=== PATIENT | male | born 1955 ===

== ENCOUNTER 2021-02-27 15:49 | Emergency (ER) | payer SELFPAY | END 2021-02-27 19:00 | disposition left against medical advice (07) | LOC: ED 15:49 | DX: R10.9 Unspecified abdominal pain (principal); R06.02 Shortness of breath; Z53.21 Procedure and treatment not carried out due to patient leaving prior to being seen by health care provider ==

== ENCOUNTER 2021-03-12 14:45 | Inpatient (IN) | payer MEDICARE ==
[2021-03-12] MEDS ORDERED: DEXTROSE 50% IN WATER (25GM) 50 ML SYRINGE IV ONE (18:45)
--- NOTE | 2021-03-12 19:04 | Emergency Department Report ---
HPI - General Chief Complaint: Abdominal Pain Time Seen by Provider: 03/12/21 18:17 - HPI HPI: This is a 65-year-old -[place]ian male presents to the emergency department with a complaint of shortness of breath, abdominal distention, and the patient is positive for COVID-19. Patient was admitted here on 02/28 until 03/04. When he visited on 02/28 the patient did not have any known past medical history but does have a history of daily alcohol use and dependence, as well as tobacco use. He was found to have liver cirrhosis causing ascites, as well as anemia and he was having some intermittent rectal bleeding. During that last admission the pa aimee had a paracentesis in which they removed 13 L of fluid, and he had a colonoscopy done with GI. Patient's daughter says that he tested positive for COVID-19 last week. Patient is currently AAO x3. The patient was seen in triage and was found to have a pulse ox of about 70% on room air. ED Past Medical Hx - Past Medical History Hx Hypertension: No Hx Heart Attack/AMI: No Hx Liver Disease: Yes (HCV) Hx Renal Disease: No Additional medical history: None reported - Social History Smoking Status: Current Every Day Smoker - Medications Home Medications: Home Medications Medication Instructions Recorded Confirmed Last Taken Type Ferrous Sulfate [Feosol 325 MG tab] 325 mg PO BID #30 tablet 03/04/21 Unknown Rx Folic Acid [Folvite] 1 mg PO QDAY #30 tablet 03/04/21 Unknown Rx Spironolactone [Aldactone] 50 mg PO QDAY #30 tablet 03/04/21 Unknown Rx Thiamine [Vitamin B-1] 100 mg PO QDAY #30 tablet 03/04/21 Unknown Rx ED Review of Systems ROS: Stated complaint: abdominal distention Other details as noted in HPI Comment: All other systems reviewed and negative Constitutional: denies: chills, fever Eyes: denies: eye pain, vision change ENT: denies: ear pain, throat pain Respiratory: shortness of breath. denies: cough Cardiovascular: denies: chest pain, palpitations Gastrointestinal: abdominal pain. denies: vomiting Genitourinary: denies: dysuria, discharge Musculoskeletal: denies: back pain, arthralgia Skin: denies: rash, lesions Neurological: denies: headache, weakness Physical Exam - Physical Exam Vital Signs: Vital Signs 03/12/21 03/12/21 18:20 18:39 Pulse Rate 127 H 104 H Respiratory 16 37 H Rate Blood Pressure 150/97 Blood Pressure 127/81 [Left] O2 Sat by Pulse 75 L 90 Oximetry Physical Exam: GENERAL: The patient is ill-appearing. Frail appearing. HENT: Normocephalic. Atraumatic. Patient has moist mucous membranes. EYES: Extraocular motions are intact. Pupils equal reactive to light bilaterally. NECK: Supple. Trachea is midline. CHEST/LUNGS: Coarse breath sounds much greater on the right. Tachypnea and conversational dyspnea. HEART/CARDIOVASCULAR: Regular. There is moderate tachycardia. There is no murmur. ABDOMEN: Abdomen is soft, nontender. There is moderate to severe abdominal distention with ascites. SKIN: Skin is warm and dry. NEURO: The patient is awake, alert, and cooperative. Normal speech. MUSCULOSKELETAL: There is no tenderness or deformity. ED Course Vital Signs 03/12/21 03/12/21 18:20 18:39 Pulse Rate 127 H 104 H Respiratory 16 37 H Rate Blood Pressure 150/97 Blood Pressure 127/81 [Left] O2 Sat by Pulse 75 L 90 Oximetry - Consultations Consultation #1: 03/12/21 21:09 I spoke to the admissions nurse on-call, Dr. Wood, who will consult on the patient. - EJ/Peripheral Line Arm R Time Out Performed: Yes Indications: nurses unable to establis Skin Cleansed in Sterile Fashion: Yes Size: 22 Dressing Placed: Tegaderm, tape Patient Tolerated Procedure: well - Intubation Time Out Performed: Yes Sedative: Etomidate Mg Given: 20 Paralytic: Rocuronium Mg Given: 70 Laryngoscope: other (Homer scope) Size: 4 ET Tube Size: 7.5 Tube Secured Depth (cm): 24 Tube Secured Location: lips Tube Placement Confirmation: visualized tube passing t, equal breath sounds bilat, confirmation by capnometr Patient Tolerated Procedure: well Intubation Complications: none Additional Comments: Initially the patient was given 50 mg of ketamine, and then 70 mg of rocuronium. This did not appear to affect the patient so he was given another 50 mg of ketamine. We then saw that the IV appeared to have infiltrated. The patient was evaluated after receiving these medications and he did not appear to have any sedation and was not paralyzed. We then placed a left EJ IV and did the RSI procedure with etomidate and rocuronium as stated above. ED Medical Decision Making - Lab Data Result diagrams: 03/12/21 18:54 03/12/21 18:54 Lab Results 03/12/21 03/12/21 03/12/21 Range/Units 18:17 18:54 18:54 WBC 15.4 H (4.5-11.0) K/mm3 RBC 4.29 (3.65-5.03) M/mm3 Hgb 9.0 L (11.8-15.2) gm/dl Hct 33.2 L (35.5-45.6) % MCV 77 L (84-94) fl MCH 21 L (28-32) pg MCHC 27 L (32-34) % RDW 28.1 H (13.2-15.2) % Plt Count 270 (140-440) K/mm3 Seg Neutrophils % [employer] PT (12.2-14.9) Sec. INR (0.87-1.13) APTT (24.2-36.6) Sec. Sodium 136 L (137-145) mmol/L Potassium 5.4 H (3.6-5.0) mmol/L Chloride 98.1 (98-107) mmol/L Carbon Dioxide 16 L (22-30) mmol/L Anion Gap 27 mmol/L BUN 32 H (9-20) mg/dL Creatinine 1.3 (0.8-1.3) mg/dL Estimated GFR 55 ml/min BUN/Creatinine Ratio 25 % Glucose 104 H (75-100) mg/dL POC Glucose 58 L (70-105) mg/dL Calcium 8.7 (8.4-10.2) mg/dL Ferritin (30.0-300.0) ng/mL Total Bilirubin 1.40 H (0.1-1.2) mg/dL AST 71 H (5-40) units/L ALT 21 (7-56) units/L Alkaline Phosphatase 164 H (35-129) units/L Lactate Dehydrogenase (91-180) units/L Troponin T (0.00-0.029) ng/mL C-Reactive Protein (0.00-1.30) mg/dL NT-Pro-B Natriuret Pep (0-900) pg/mL Total Protein 7.1 (6.3-8.2) g/dL Albumin 2.2 L (3.9-5) g/dL Albumin/Globulin Ratio 0.4 % Blood Type Antibody Screen 03/12/21 03/12/21 03/12/21 Range/Units 18:54 18:54 18:54 WBC (4.5-11.0) K/mm3 RBC (3.65-5.03) M/mm3 Hgb (11.8-15.2) gm/dl Hct (35.5-45.6) % MCV (84-94) fl MCH (28-32) pg MCHC (32-34) % RDW (13.2-15.2) % Plt Count (140-440) K/mm3 Seg Neutrophils % PT 17.6 H (12.2-14.9) Sec. INR 1.31 H (0.87-1.13) APTT 38.7 H (24.2-36.6) Sec. Sodium (137-145) mmol/L Potassium (3.6-5.0) mmol/L Chloride (98-107) mmol/L Carbon Dioxide (22-30) mmol/L Anion Gap mmol/L BUN (9-20) mg/dL Creatinine (0.8-1.3) mg/dL Estimated GFR ml/min BUN/Creatinine Ratio % Glucose (75-100) mg/dL POC Glucose (70-105) mg/dL Calcium (8.4-10.2) mg/dL Ferritin (30.0-300.0) ng/mL Total Bilirubin (0.1-1.2) mg/dL AST (5-40) units/L ALT (7-56) units/L Alkaline Phosphatase (35-129) units/L Lactate Dehydrogenase (91-180) units/L Troponin T < 0.010 (0.00-0.029) ng/mL C-Reactive Protein (0.00-1.30) mg/dL NT-Pro-B Natriuret Pep 1838 H (0-900) pg/mL Total Protein (6.3-8.2) g/dL Albumin (3.9-5) g/dL Albumin/Globulin Ratio % Blood Type Antibody Screen 03/12/21 03/12/21 03/12/21 Range/Units 18:54 18:54 19:04 WBC (4.5-11.0) K/mm3 RBC (3.65-5.03) M/mm3 Hgb (11.8-15.2) gm/dl Hct (35.5-45.6) % MCV (84-94) fl MCH (28-32) pg MCHC (32-34) % RDW (13.2-15.2) % Plt Count (140-440) K/mm3 Seg Neutrophils % PT (12.2-14.9) Sec. INR (0.87-1.13) APTT (24.2-36.6) Sec. Sodium (137-145) mmol/L Potassium (3.6-5.0) mmol/L Chloride (98-107) mmol/L Carbon Dioxide (22-30) mmol/L Anion Gap mmol/L BUN (9-20) mg/dL Creatinine (0.8-1.3) mg/dL Estimated GFR ml/min BUN/Creatinine Ratio % Glucose (75-100) mg/dL POC Glucose (70-105) mg/dL Calcium (8.4-10.2) mg/dL Ferritin 414.7 H (30.0-300.0) ng/mL Total Bilirubin (0.1-1.2) mg/dL AST (5-40) units/L ALT (7-56) units/L Alkaline Phosphatase (35-129) units/L Lactate Dehydrogenase 287 H (91-180) units/L Troponin T (0.00-0.029) ng/mL C-Reactive Protein 10.80 H (0.00-1.30) mg/dL NT-Pro-B Natriuret Pep (0-900) pg/mL Total Protein (6.3-8.2) g/dL Albumin (3.9-5) g/dL Albumin/Globulin Ratio % Blood Type B POSITIVE Antibody Screen Negative 03/12/21 03/12/21 03/12/21 Range/Units 19:21 19:50 20:14 WBC (4.5-11.0) K/mm3 RBC (3.65-5.03) M/mm3 Hgb (11.8-15.2) gm/dl Hct (35.5-45.6) % MCV (84-94) fl MCH (28-32) pg MCHC (32-34) % RDW (13.2-15.2) % Plt Count (140-440) K/mm3 Seg Neutrophils % PT (12.2-14.9) Sec. INR (0.87-1.13) APTT (24.2-36.6) Sec. Sodium (137-145) mmol/L Potassium (3.6-5.0) mmol/L Chloride (98-107) mmol/L Carbon Dioxide (22-30) mmol/L Anion Gap mmol/L BUN (9-20) mg/dL Creatinine (0.8-1.3) mg/dL Estimated GFR ml/min BUN/Creatinine Ratio % Glucose (75-100) mg/dL POC Glucose 30 L 24 L 371 H (70-105) mg/dL Calcium (8.4-10.2) mg/dL Ferritin (30.0-300.0) ng/mL Total Bilirubin (0.1-1.2) mg/dL AST (5-40) units/L ALT (7-56) units/L Alkaline Phosphatase (35-129) units/L Lactate Dehydrogenase (91-180) units/L Troponin T (0.00-0.029) ng/mL C-Reactive Protein (0.00-1.30) mg/dL NT-Pro-B Natriuret Pep (0-900) pg/mL Total Protein (6.3-8.2) g/dL Albumin (3.9-5) g/dL Albumin/Globulin Ratio % Blood Type Antibody Screen - Radiology Data Radiology results: report reviewed ABDOMEN 4 VIEW(S) INDICATION / CLINICAL INFORMATION: SOB. COMPARISON: None available. FINDINGS: TUBES / LINES: None. BOWEL GAS PATTERN: Moderate gaseous distention of stomach with central displacement of bowel loops suggestive for ascites. FREE AIR / EXTRALUMINAL GAS: None seen. ADDITIONAL FINDINGS: Loculated right pleural effusion and right sided intimal disease IMPRESSION: 1. Probable large volume ascites. 2. Moderate right pleural effusion. - Medical Decision Making This patient presents to the emergency department with shortness of breath and abdominal distention with suspected reaccumulation of ascites. I also found out that the patient tested positive for COVID-19 about 5 days ago. In triage the patient is seen with hypoxia, tachypnea, tachycardia and appears in respiratory distress. We were able to get the patient back to room #7 we placed him on BiPAP. He was found to have hyperglycemia with a blood sugar of 50 and was given an amp of D50. When rechecked his blood sugar it was down to 25 so 2 more amps of D50 were ordered and then given. The patient did not tolerate the BiPAP. He kept pulling off the BiPAP mask and having oxygen desaturation. For this reason the patient was intubated as per the procedure section. Chest x-ray shows bilateral pneumonia and right-sided large pleural effusion. Abdominal x- ray shows what appears to be a large volume of ascites. The patient's labs have been remarkable for a leukocytosis of 15,000, anemia with a hemoglobin of 9, slightly elevated coags without anticoagulation, mild renal insufficiency, elevated proBNP and elevated inflammatory markers consistent with COVID-19 infection. The patient has been given IV antibiotics, IV Decadron. He will be admitted to the hospital for further evaluation and treatment and has been accepted for admission by the hospitalist, Dr. Richardson. Patient's daughter has been updated regarding his ED course including intubation. Critical Care Time: Yes Critical care time in (mins) excluding proc time.: 35 Critical care attestation.: If time is entered above; I have spent that time in minutes in the direct care of this critically ill patient, excluding procedure time. Critical care time has been spent on this patient during his initial evaluation, multiple reevaluations, ordering and interpretation of labs and imaging, supplemental oxygen/BiPAP/mechanical ventilation for his hypoxia, IV steroids, IV antibiotics, multiple amps of D50 for his hypoglycemia, discussions with the patient's daughter. Critical Care Time: 35 minutes ED Disposition Clinical Impression: Hypoxia, Hypoglycemia, Microcytic anemia, Hypokalemia, Suspected COVID-19 virus infection, Ascites due to alcoholic cirrhosis Acute respiratory failure Qualifiers: Respiratory failure complication: hypoxia Qualified Code(s): J96.01 - Acute respiratory failure with hypoxia Disposition: ADMITTED INPATIENT Is pt being admited?: Yes Condition: Critical Time of Disposition: 21:01
[2021-03-12] MEDS ORDERED: SODIUM CHLORIDE 0.9% 1000 ML 1,000 ML IV ONE (19:11)
[2021-03-12] MEDS ORDERED: ROCURONIUM 50 MG/5 ML INJ IV ONE ×2 (19:40→19:56)
[2021-03-12] MEDS ORDERED: KETAMINE 500 MG/5 ML VIAL MDV ONE (19:40)
--- NOTE | 2021-03-12 19:48 | XRay Report ---
ABDOMEN 4 VIEW(S) INDICATION / CLINICAL INFORMATION: SOB. COMPARISON: None available. FINDINGS: TUBES / LINES: None. BOWEL GAS PATTERN: Moderate gaseous distention of stomach with central displacement of bowel loops de elon ggestive for ascites. FREE AIR / EXTRALUMINAL GAS: None seen. ADDITIONAL FINDINGS: Loculated right pleural effusion and right sided intimal disease IMPRESSION: 1. Probable large volume ascites. 2. Moderate right pleural effusion. Signer Name: Mitch Castro MD Signed: 03/12/2021 7:44 PM Workstation Name: [id number]
[2021-03-12] MEDS ORDERED: ETOMIDATE 20 MG/10 ML INJ IV ONE (19:54)
[2021-03-12] MEDS ORDERED: MINERAL OIL/PETROLATUM, WHITE OPHTH OINT 3.5 GM OU PRN (20:02)
[2021-03-12] MEDS ORDERED: LIP THERAPY VASELINE TP PRN (20:02)
[2021-03-12] MEDS ORDERED: MIDAZOLAM 2 MG/2 ML INJ IV PRN (20:02)
[2021-03-12 20:16] LABS: Mean Corpuscular HGB Conc 27 % (32-34); Mean Corpuscular Volume 77 fl (84-94); Platelet Count 270 K/mm3 (140-440); Red Blood Count 4.29 M/mm3 (3.65-5.03)
[2021-03-12 20:24] LABS: Hematocrit 33.2 % (35.5-45.6); Red Cell Distribution Width 28.1 % (13.2-15.2)
[2021-03-12 20:29] LABS: INR 1.31 (0.87-1.13)
[2021-03-12 20:30] LABS: Partial Thromboplastin Time 38.7 Sec. (24.2-36.6)
[2021-03-12 20:39] LABS: Albumin 2.2 g/dL (3.9-5); Calcium 8.7 mg/dL (8.4-10.2)
[2021-03-12 20:40] LABS: C-Reactive Protein 10.8 mg/dL (0.00-1.30)
--- NOTE | 2021-03-12 20:40 | XRay Report ---
CHEST 1 VIEW 03/12/2021 7:22 PM INDICATION / CLINICAL INFORMATION: ETT placement. COMPARISON: None available. FINDINGS: SUPPORT DEVICES: ET tube tip 4 cm above brittney area HEART / MEDIASTINUM: No significant abnormality. LUNGS / PLEURA: Loculated right pleural effusion with right-sided brachial disease. Mild streaky left -sided parenchymal disease. No pneumothorax. ADDITIONAL FINDINGS: No significant additional findings. IMPRESSION: 1. Bilateral pneumonia with loculated moderate right pleural effusion Signer Name: Mitch Castro MD Signed: 03/12/2021 8:36 PM Workstation Name: [id number]
[2021-03-12] MEDS ORDERED: AZITHROMYCIN/NS 500 MG/250 ML 500 MG/250 ML BAG IV ONE (20:53)
[2021-03-12] MEDS ORDERED: cefTRIAXone/NS 1 GM/50 ML 1 GM/50 ML BAG IV ONE (20:53)
[2021-03-12] MEDS ORDERED: dexAMETHasone 4 MG/ML VIAL IV ONE (20:54)
[2021-03-12] MEDS ORDERED: MIDAZOLAM 100 MG in SODIUM CHLORIDE 0.9% 80 ML IV SCH (21:00)
[2021-03-12] MEDS ORDERED: ONDANSETRON 4 MG/2 ML INJ IV PRN (21:29)
[2021-03-12] MEDS ORDERED: MORPHINE 2 MG/1 ML INJ IV PRN (21:29)
[2021-03-12] MEDS ORDERED: HYDROmorphone 1 MG/1 ML INJ IV PRN (21:29)
[2021-03-12] MEDS ORDERED: ALBUTEROL 2.5 MG/3 ML NEBU IH PRN (21:29)
[2021-03-12] MEDS ORDERED: ACETAMINOPHEN 325 MG TAB PO PRN (21:29)
[2021-03-12 21:35] LABS: Band Neutrophils # (Manual) 0.3 K/mm3; Basophils % (Manual) 0 % (0.0-1.8); Eosinophils % (Manual) 0 % (0.0-4.3); Total Cells Counted 100
[2021-03-12 21:36] LABS: Anisocytosis 2+; Burr Cells Few; Hypochromasia 2+; Ovalocytes Few; Platelet Estimate Consistent w Auto
--- NOTE | 2021-03-12 21:40 | History and Physical Report ---
History of Present Illness Date of examination: 03/12/21 Date of admission: 03/12/21 21:03 Chief complaint: Abdominal pain Respiratory failure History of present illness: 65-year-old -[place] male with past medical history of ascites, cirrhosis and anemia, rectal bleed was brought to the emergency room because of shortness of breath, abdominal distention, and the patient is positive for COVID-19. Patient was admitted here on 02/28 until 03/04. When he visited on 02/28 the patient was found to have liver cirrhosis causing ascites, as well as anemia and he was having some intermittent rectal bleeding. During that last admission the patient had a paracentesis in which they removed 13 L of fluid, and he had a colonoscopy done with GI. Patient's daughter says that he tested positive for COVID-19 last week. Patient is currently AAO x3. The patient was seen in triage and was found to have a pulse ox of about 70% on room air. the patient is seen with hypoxia, tachypnea, tachycardia and appears in respiratory distress. We were able to get the patient back to room #7 we placed him on BiPAP. He was found to have hypoglycemia with a blood sugar of 50 and was given an amp of D50. When rechecked his blood sugar it was down to 25 so 2 more amps of D50 were ordered and then given. The patient did not tolerate the BiPAP. He kept pulling off the BiPAP mask and having oxygen desaturation. For this reason the patient was intubated as per the procedure section. Chest x-ray shows bilateral pneumonia and right-sided large pleural effusion. Abdominal x- ray shows what appears to be a large volume of ascites. The patient's labs have been remarkable for a leukocytosis of 15,000, anemia with a hemoglobin of 9, slightly elevated coags without anticoagulation, mild renal insufficiency, elevated proBNP and elevated inflammatory markers consistent with COVID-19 infection. The patient has been given IV antibiotics, IV Decadron. He will be admitted to the hospital for further evaluation and treatment Past History Past Medical History: anemia, hepatitis, liver disease, renal failure (Tobacco abuser), other (Alcohol abuse, ascites, anemia, COVID) Medications and Allergies Allergies Allergy/AdvReac Type Severity Reaction Status Date / Time No Known Allergies Allergy Verified 02/27/21 20:19 Home Medications Medication Instructions Recorded Confirmed Last Taken Type Ferrous Sulfate [Feosol 325 MG tab] 325 mg PO BID #30 tablet 03/04/21 Unknown Rx Folic Acid [Folvite] 1 mg PO QDAY #30 tablet 03/04/21 Unknown Rx Spironolactone [Aldactone] 50 mg PO QDAY #30 tablet 03/04/21 Unknown Rx Thiamine [Vitamin B-1] 100 mg PO QDAY #30 tablet 03/04/21 Unknown Rx Active Meds: Active Medications Acetaminophen (Acetaminophen 325 Mg Tab) 650 mg PO Q4H PRN PRN Reason: Pain MILD(1-3)/Fever >100.5/KHAN Albuterol (Albuterol 2.5 Mg/3 Ml Nebu) 2.5 mg IH Q4HRT PRN PRN Reason: Shortness Of Breath Albuterol/Ipratropium (Ipratropium/Albuterol Sulfate 3 Ml Ampul.Neb) 1 ampul IH Q6HRT STEPHEN Famotidine (Famotidine 20 Mg/2 Ml Inj) 20 mg IV BID STEPHEN Famotidine (Famotidine 20 Mg/2 Ml Inj) 20 mg IV BID STEPHEN Ferrous Sulfate (Ferrous Sulfate 325 Mg Tab) 325 mg PO BID STEPHEN Folic Acid (Folic Acid 1 Mg Tab) 1 mg PO QDAY STEPHEN Hydromorphone HCl (Hydromorphone 1 Mg/1 Ml Inj) 0.5 mg IV Q3H PRN PRN Reason: Pain , Severe (7-10) Hydrophilic Ointment (Lip Therapy Vaseline) 1 applic TP Q2HR PRN PRN Reason: Dry Lips Sodium Chloride (Nacl 0.9% 1000 Ml) 1,000 mls @ 125 mls/hr IV ONCE ONE Stop: 03/13/21 03:10 Last Admin: 03/12/21 19:23 Dose: 125 mls/hr Midazolam HCl 100 mg/ Sodium (Chloride) 100 mls @ 2 mls/hr IV TITR STEPHEN; Protocol Azithromycin (Zithromax/Ns) 500 mg in 250 mls @ 250 mls/hr IV ONCE ONE; Protocol Stop: 03/12/21 21:52 Dextrose/Sodium Chloride (D5ns) 1,000 mls @ 75 mls/hr IV DIRECT STEPHEN Ceftriaxone Sodium (Rocephin/Ns 2 Gm/100 Ml) 2 gm in 100 mls @ 200 mls/hr IV Q2 4H STEPHEN; Protocol Azithromycin (Zithromax/Ns) 500 mg in 250 mls @ 250 mls/hr IV Q24H STEPHEN; Protocol Midazolam HCl (Midazolam 2 Mg/2 Ml Inj) 2 mg IV Q10MIN PRN PRN Reason: Sedation Morphine Sulfate (Morphine 2 Mg/1 Ml Inj) 2 mg IV Q4H PRN PRN Reason: Pain, Moderate (4-6) Multi-Ingred Cream/Lotion/Oil/Oint (Mineral Oil/Petrolatum, White Ophth Oint 3.5 Gm) 1 applic OU Q4HR PRN PRN Reason: Dry Eye(s) Ondansetron HCl (Ondansetron 4 Mg/2 Ml Inj) 4 mg IV Q8H PRN PRN Reason: Nausea And Vomiting Senna/Docusate Sodium (Sennosides/Docusate Sodium 8.6/50 Mg Tab) 1 tab FEEDTUBE BID STEPHEN Sodium Chloride (Sodium Chloride 0.9% 10 Ml Flush Syringe) 10 ml IV BID STEPHEN Sodium Chloride (Sodium Chloride 0.9% 10 Ml Flush Syringe) 10 ml IV PRN PRN PRN Reason: LINE FLUSH Spironolactone (Spironolactone 50 Mg Tab) 50 mg PO QDAY STEPHEN Thiamine HCl (Thiamine 100 Mg Tab) 100 mg PO QDAY STEPHEN Review of Systems Cardiovascular: shortness of breath, dyspnea on exertion Respiratory: shortness of breath, dyspnea on exertion Gastrointestinal: abdominal pain Exam - Constitutional Vitals: Temp Pulse Resp BP Pulse Ox 124 H 15 156/104 99 03/12/21 21:15 03/12/21 21:01 03/12/21 21:15 03/12/21 21:15 General appearance: Present: cachectic - EENT Eyes: Present: PERRL ENT: hearing intact, clear oral mucosa - Neck Neck: Present: supple, normal ROM - Respiratory Respiratory effort: normal Respiratory: bilateral: diminished - Cardiovascular Heart Sounds: Present: S1 & S2. Absent: rub, click - Extremities Extremities: pulses symmetrical, No edema Peripheral Pulses: within normal limits - Abdominal General gastrointestinal: Present: soft, non-tender, non-distended, normal bowel sounds Male genitourinary: Present: normal - Integumentary Integumentary: Present: clear, warm, dry - Musculoskeletal Musculoskeletal: gait normal, strength equal bilaterally - Psychiatric Psychiatric: appropriate mood/affect, intact judgment & insight - Neurologic Neurologic: CNII-XII intact, moves all extremities HEART Score - HEART Score Troponin: Troponin T < 0.010 ng/mL (0.00-0.029) 03/12/21 18:54 Results - Labs CBC & Chem 7: 03/12/21 18:54 03/12/21 18:54 Labs: Laboratory Last Values WBC 15.4 K/mm3 (4.5-11.0) H 03/12/21 18:54 RBC 4.29 M/mm3 (3.65-5.03) 03/12/21 18:54 Hgb 9.0 gm/dl (11.8-15.2) L 03/12/21 18:54 Hct 33.2 % (35.5-45.6) L 03/12/21 18:54 MCV 77 fl (84-94) L 03/12/21 18:54 MCH 21 pg (28-32) L 03/12/21 18:54 MCHC 27 % (32-34) L 03/12/21 18:54 RDW 28.1 % (13.2-15.2) H 03/12/21 18:54 Plt Count 270 K/mm3 (140-440) 03/12/21 18:54 Seg Neutrophils % Patient Access Associate 03/12/21 18:54 PT 17.6 Sec. (12.2-14.9) H 03/12/21 18:54 INR 1.31 (0.87-1.13) H 03/12/21 18:54 APTT 38.7 Sec. (24.2-36.6) H 03/12/21 18:54 D-Dimer > 74241 ng/mlDDU (0-234) H 03/12/21 18:54 Sodium 136 mmol/L (137-145) L 03/12/21 18:54 Potassium 5.4 mmol/L (3.6-5.0) H 03/12/21 18:54 Chloride 98.1 mmol/L (98-107) 03/12/21 18:54 Carbon Dioxide 16 mmol/L (22-30) L 03/12/21 18:54 Anion Gap 27 mmol/L 03/12/21 18:54 BUN 32 mg/dL (9-20) H 03/12/21 18:54 Creatinine 1.3 mg/dL (0.8-1.3) 03/12/21 18:54 Estimated GFR 55 ml/min 03/12/21 18:54 BUN/Creatinine Ratio 25 % 03/12/21 18:54 Glucose 104 mg/dL (75-100) H 03/12/21 18:54 POC Glucose 371 mg/dL (70-105) H 03/12/21 20:14 Calcium 8.7 mg/dL (8.4-10.2) 03/12/21 18:54 Ferritin 414.7 ng/mL (30.0-300.0) H 03/12/21 18:54 Total Bilirubin 1.40 mg/dL (0.1-1.2) H 03/12/21 18:54 AST 71 units/L (5-40) H 03/12/21 18:54 ALT 21 units/L (7-56) 03/12/21 18:54 Alkaline Phosphatase 164 units/L (35-129) H 03/12/21 18:54 Ammonia 72.0 umol/L (25-60) H 03/12/21 18:54 Lactate Dehydrogenase 287 units/L (91-180) H 03/12/21 19:04 Troponin T < 0.010 ng/mL (0.00-0.029) 03/12/21 18:54 C-Reactive Protein 10.80 mg/dL (0.00-1.30) H 03/12/21 19:04 NT-Pro-B Natriuret Pep 1838 pg/mL (0-900) H 03/12/21 18:54 Total Protein 7.1 g/dL (6.3-8.2) 03/12/21 18:54 Albumin 2.2 g/dL (3.9-5) L 03/12/21 18:54 Albumin/Globulin Ratio 0.4 % 03/12/21 18:54 Blood Type B POSITIVE 03/12/21 18:54 Antibody Screen Negative 03/12/21 18:54 - Imaging and Cardiology Chest x-ray: report reviewed Abdominal x-ray: report reviewed Assessment and Plan VTE prophylaxis?: Mechanical Plan of care discussed with patient/family: Yes - Patient Problems (1) Acute respiratory failure Current Visit: Yes Status: Acute Qualifiers: Respiratory failure complication: hypoxia Qualified Code(s): J96.01 - Acute respiratory failure with hypoxia Plan to address problem: Admit the patient to the medical ICU. Patient is status post intubation. DuoNeb nebulizer every 4 hours. Albuterol by nebulizer every 4 hours as needed. Rocephin 2 g IV daily. Zithromax 500 IV daily. Decadron 6 mg IV daily. We do the COVID PCR and follow COVID inflammatory marker we consult critical care as well as infectious disease for evaluation (2) Suspected COVID-19 virus infection Current Visit: Yes Status: Acute Plan to address problem: Patient is status post intubation. DuoNeb nebulizer every 4 hours. Albuterol by nebulizer every 4 hours as needed. Rocephin 2 g IV daily. Zithromax 500 IV daily. Decadron 6 mg IV daily. We do the COVID PCR and follow COVID inflammatory marker we consult critical care as well as infectious disease for evaluation (3) Alcohol abuse Current Visit: No Status: Acute (4) Ascites due to alcoholic cirrhosis Current Visit: Yes Status: Acute Plan to address problem: NPO. Pepcid 20 mg IV every 12 hours. We consult interventional radiology for paracentesis. We will also consult GI for evaluation. Patient is on Aldactone 50 mg p.o. daily (5) Hypoglycemia Current Visit: Yes Status: Acute Plan to address problem: Patient is on D5 normal saline at the rate of 75 cc/h. We will monitor the glucose closely. Recheck BMP in the morning (6) Hypoxia Current Visit: Yes Status: Acute Plan to address problem: Patient is status post intubation. DuoNeb nebulizer every 4 hours. Albuterol by nebulizer every 4 hours as needed. Rocephin 2 g IV daily. Zithromax 500 IV daily. Decadron 6 mg IV daily. We do the COVID PCR and follow COVID inflammatory marker we consult critical care as well as infectious disease for evaluation (7) Microcytic anemia Current Visit: Yes Status: Acute Plan to address problem: Patient is on ferrous sulfate 325 mg p.o. twice daily. Folic acid 1 mg daily and thiamine 100 mg p.o. daily. Reconsult GI for evaluation (8) Ascites Current Visit: No Status: Acute Plan to address problem: Pepcid 20 mg IV every 12 hours PT OT consult interventional radiology for paracentesis. We also consult GI for evaluation (9) Tobacco abuse Current Visit: No Status: Acute Plan to address problem: Patient counseled regarding quitting smoking (10) DVT prophylaxis Current Visit: No Status: Acute Plan to address problem: SCD for DVT prophylaxis because of a history of rectal bleeding. Pepcid 20 mg IV every 12 hours for GI prophylaxis. Patient is a full code
[2021-03-12] MEDS ORDERED: FAMOTIDINE 20 MG/2 ML INJ IV SCH (22:00)
[2021-03-12] MEDS ORDERED: D5W/0.9% NACL 1,000 ML IV SCH (22:00)
[2021-03-12] MEDS ORDERED: FERROUS SULFATE 325 MG TAB PO SCH (22:00)
[2021-03-13] MEDS: IPRATROPIUM/ALBUTEROL SULFATE 3 ML AMPUL.NEB IH SCH (05:12)
--- NOTE | 2021-03-13 09:14 | XRay Report ---
CHEST 1 VIEW 03/13/2021 7:06 AM INDICATION / CLINICAL INFORMATION: follow up respiratory failure. COMPARISON: Previous day. FINDINGS: SUPPORT DEVICES: None. HEART / MEDIASTINUM: No significant abnormality. LUNGS / PLEURA: Pleural fluid/volume loss in the right with associated opacity remains. There is over all mild improvement. Opacity at the left mid/lower zone has improved. No new suspicious abnormality. No pneumothorax. ADDITIONAL FINDINGS: No significant additional findings. IMPRESSION: Overall mild improvement. Signer Name: David Ramey MD Signed: 03/13/2021 9:10 AM Workstation Name: [id number]
--- NOTE | 2021-03-13 09:53 | Consultation ---
History of Present Illness Consult date: 03/13/21 History of present illness: This is a 65-year-old -[place] male presented to the emergency department with a complaint of shortness of breath, abdominal distention, and the patient is positive for COVID-19. Patient was admitted here on 02/28 until 03/04. When he visited on 02/28 the patient did not have any known past medical history but does have a history of daily alcohol use and dependence, as well as tobacco use. He was found to have liver cirrhosis causing ascites, as well as anemia and he was having some intermittent rectal bleeding. During that last admission the patient had a paracentesis in which they removed 13 L of fluid, and he had a colonoscopy done with GI. Patient's daughter says that he tested positive for COVID-19 last week. Patient had a room air sat of 70 on eval in triage. IN ED patient became hypoglycemic while on bipap. Assuming was altered and pulled off mask. ED elected to intubate and place on sedation. Past History Past Medical History: anemia, hepatitis, liver disease, renal failure (Tobacco abuser), other (Alcohol abuse, ascites, anemia, COVID) Medications and Allergies Allergies Allergy/AdvReac Type Severity Reaction Status Date / Time No Known Allergies Allergy Verified 02/27/21 20:19 Home Medications Medication Instructions Recorded Confirmed Last Taken Type Ferrous Sulfate [Feosol 325 MG tab] 325 mg PO BID #30 tablet 03/04/21 Unknown Rx Folic Acid [Folvite] 1 mg PO QDAY #30 tablet 03/04/21 Unknown Rx Spironolactone [Aldactone] 50 mg PO QDAY #30 tablet 03/04/21 Unknown Rx Thiamine [Vitamin B-1] 100 mg PO QDAY #30 tablet 03/04/21 Unknown Rx Active Meds: Active Medications Acetaminophen (Acetaminophen 325 Mg Tab) 650 mg PO Q4H PRN PRN Reason: Pain MILD(1-3)/Fever >100.5/KHAN Albuterol (Albuterol 2.5 Mg/3 Ml Nebu) 2.5 mg IH Q4HRT PRN PRN Reason: Shortness Of Breath Albuterol/Ipratropium (Ipratropium/Albuterol Sulfate 3 Ml Ampul.Neb) 1 ampul IH Q6HRT STEPHEN Last Admin: 01/11/22 05:12 Dose: Not Given Dexamethasone (Dexamethasone 4 Mg/Ml Vial) 6 mg IV DAILY [facility] Famotidine (Famotidine 20 Mg/2 Ml Inj) 20 mg IV BID [facility] Ferrous Sulfate (Ferrous Sulfate 300 Mg (60mg Elemental Iron) / 5 Ml Oral Liqd) 300 mg PO BID [facility] Folic Acid (Folic Acid 1 Mg Tab) 1 mg PO QDAY [facility] Hydromorphone HCl (Hydromorphone 1 Mg/1 Ml Inj) 0.5 mg IV Q3H PRN PRN Reason: Pain , Severe (7-10) Hydrophilic Ointment (Lip Therapy Vaseline) 1 applic TP Q2HR PRN PRN Reason: Dry Lips Dextrose/Sodium Chloride (D5ns) 1,000 mls @ 75 mls/hr IV DIRECT STEPHEN Last Admin: 03/13/21 09:03 Dose: 75 mls/hr Ceftriaxone Sodium (Rocephin/Ns 2 Gm/100 Ml) 2 gm in 100 mls @ 200 mls/hr IV Q24HR [facility]; Protocol Azithromycin (Zithromax/Ns) 500 mg in 250 mls @ 250 mls/hr IV Q24HR [facility]; Protocol Dexmedetomidine HCl 400 mcg/ (Sodium Chloride) 104 mls @ 3.538 mls/hr IV TITRATE [facility]PH[facility]; Protocol Last Admin: 03/13/21 08:51 Dose: 0.19 mcg/kg/hr, 3.4 mls/hr Morphine Sulfate (Morphine 2 Mg/1 Ml Inj) 2 mg IV Q4H PRN PRN Reason: Pain, Moderate (4-6) Multi-Ingred Cream/Lotion/Oil/Oint (Mineral Oil/Petrolatum, White Ophth Oint 3.5 Gm) 1 applic OU Q4HR PRN PRN Reason: Dry Eye(s) Ondansetron HCl (Ondansetron 4 Mg/2 Ml Inj) 4 mg IV Q8H PRN PRN Reason: Nausea And Vomiting Senna/Docusate Sodium (Sennosides/Docusate Sodium 8.6/50 Mg Tab) 1 tab FEEDTUBE BID [facility] Sodium Chloride (Sodium Chloride 0.9% 10 Ml Flush Syringe) 10 ml IV BID [facility] Sodium Chloride (Sodium Chloride 0.9% 10 Ml Flush Syringe) 10 ml IV PRN PRN PRN Reason: LINE FLUSH Spironolactone (Spironolactone 50 Mg Tab) 50 mg PO QDAY [facility] Thiamine HCl (Thiamine 100 Mg Tab) 100 mg PO QDAY STEPH[facility] Review of Systems ROS unobtainable: due to endotracheal tube, due to mental status Physical Examination Vital signs: Vital Signs Pulse Resp BP Pulse Ox 127 H 16 127/81 75 L 03/12/21 18:20 03/12/21 18:20 03/12/21 18:20 03/12/21 18:20 Results - Laboratory Findings CBC and BMP: 03/14/21 05:34 03/14/21 07:18 ABG ABG pH 7.443 (7.320-7.450) 03/13/21 00:05 POC ABG pCO2 33.0 mmHg (32.0-48.0) 03/13/21 00:05 POC ABG pO2 314.9 mmHg (83-108) H 03/13/21 00:05 POC ABG HCO3 22.1 03/13/21 00:05 ABG O2 Saturation 99.7 (0-100) 03/13/21 00:05 PT/INR, D-dimer PT 17.6 Sec. (12.2-14.9) H 03/12/21 18:54 INR 1.31 (0.87-1.13) H 03/12/21 18:54 D-Dimer > 90663 ng/mlDDU (0-234) H 03/12/21 18:54 Abnormal lab findings: Abnormal Labs 03/12/21 03/12/21 03/12/21 18:17 18:54 18:54 WBC 15.4 H Hgb 9.0 L Hct 33.2 L MCV 77 L MCH 21 L MCHC 27 L RDW 28.1 H Seg Neuts % (Manual) 86.0 H Lymphocytes % (Manual) 4.0 L Monocytes % (Manual) 8.0 H Seg Neutrophils # Man 13.2 H Lymphocytes # (Manual) 0.6 L Monocytes # (Manual) 1.2 H PT INR APTT D-Dimer POC ABG pO2 ABG Oxyhemoglobin ABG Glucose Sodium 136 L Potassium 5.4 H Carbon Dioxide 16 L BUN 32 H Glucose 104 H POC Glucose 58 L Ferritin Total Bilirubin 1.40 H AST 71 H Alkaline Phosphatase 164 H Ammonia Lactate Dehydrogenase C-Reactive Protein NT-Pro-B Natriuret Pep Albumin 2.2 L Arterial Blood Glucose 03/12/21 03/12/21 03/12/21 18:54 18:54 18:54 WBC Hgb Hct MCV MCH MCHC RDW Seg Neuts % (Manual) Lymphocytes % (Manual) Monocytes % (Manual) Seg Neutrophils # Man Lymphocytes # (Manual) Monocytes # (Manual) PT 17.6 H INR 1.31 H APTT 38.7 H D-Dimer > 10981 H POC ABG pO2 ABG Oxyhemoglobin ABG Glucose Sodium Potassium Carbon Dioxide BUN Glucose POC Glucose Ferritin Total Bilirubin AST Alkaline Phosphatase Ammonia 72.0 H Lactate Dehydrogenase C-Reactive Protein NT-Pro-B Natriuret Pep 1838 H Albumin Arterial Blood Glucose 03/12/21 03/12/21 03/12/21 18:54 19:04 19:21 WBC Hgb Hct MCV MCH MCHC RDW Seg Neuts % (Manual) Lymphocytes % (Manual) Monocytes % (Manual) Seg Neutrophils # Man Lymphocytes # (Manual) Monocytes # (Manual) PT INR APTT D-Dimer POC ABG pO2 ABG Oxyhemoglobin ABG Glucose Sodium Potassium Carbon Dioxide BUN Glucose POC Glucose 30 L Ferritin 414.7 H Total Bilirubin AST Alkaline Phosphatase Ammonia Lactate Dehydrogenase 287 H C-Reactive Protein 10.80 H NT-Pro-B Natriuret Pep Albumin Arterial Blood Glucose 03/12/21 03/12/21 03/13/21 19:50 20:14 00:05 WBC Hgb Hct MCV MCH MCHC RDW Seg Neuts % (Manual) Lymphocytes % (Manual) Monocytes % (Manual) Seg Neutrophils # Man Lymphocytes # (Manual) Monocytes # (Manual) PT INR APTT D-Dimer POC ABG pO2 314.9 H ABG Oxyhemoglobin 98.9 H ABG Glucose 229 H Sodium Potassium Carbon Dioxide BUN Glucose POC Glucose 24 L 371 H Ferritin Total Bilirubin AST Alkaline Phosphatase Ammonia Lactate Dehydrogenase C-Reactive Protein NT-Pro-B Natriuret Pep Albumin Arterial Blood Glucose 229 H 03/13/21 02:29 WBC Hgb Hct MCV MCH MCHC RDW Seg Neuts % (Manual) Lymphocytes % (Manual) Monocytes % (Manual) Seg Neutrophils # Man Lymphocytes # (Manual) Monocytes # (Manual) PT INR APTT D-Dimer POC ABG pO2 ABG Oxyhemoglobin ABG Glucose Sodium Potassium Carbon Dioxide BUN Glucose POC Glucose 128 H Ferritin Total Bilirubin AST Alkaline Phosphatase Ammonia Lactate Dehydrogenase C-Reactive Protein NT-Pro-B Natriuret Pep Albumin Arterial Blood Glucose - Diagnostic Findings Chest x-ray: image reviewed Assessment and Plan 65 y/o male with acute respiratory failure most likely secondary to COVID plus right sided effusion secondary to large volume ascities from liver cirrhosis. 1. Wean Vent settings and sedation as tolerated 2. Remdesivir and Steroids, Pending CRP, actemra 3. Hold on proning now that intubated, not able to paralyze and adequately sedate in the ED 4. Negative fluid balance if possible 5. Needs paracentesis, this should take care of pleural effusion as well. 6. Guarded prognosis. CCT 31 minutes.
[2021-03-13] MEDS: FOLIC ACID 1 MG TAB PO SCH (10:00)
[2021-03-13] MEDS: FERROUS SULFATE 300 MG (60MG Elemental Iron) / 5 mL ORAL LIQD PO SCH ×2 (10:00→23:50)
[2021-03-13] MEDS: SPIRONOLACTONE 50 MG TAB PO SCH (10:00)
[2021-03-13] MEDS: THIAMINE 100 MG TAB PO SCH (10:00)
--- NOTE | 2021-03-13 13:55 | Progress Note ---
Assessment and Plan Assessment and plan: History of present illness: 65-year-old -[place] male with past medical history of ascites, cirrhosis and anemia, rectal bleed was brought to the emergency room because of shortness of breath, abdominal distention, and the patient is positive for COVID-19. Patient was admitted here on 02/28 until 03/04. When he visited on 02/28 the patient was found to have liver cirrhosis causing ascites, as well as anemia and he was having some intermittent rectal bleeding. During that last admission the patient had a paracentesis in which they removed 13 L of fluid, and he had a colonoscopy done with GI. Patient's daughter says that he tested positive for COVID-19 last week. Patient is currently AAO x3. The patient was seen in triage and was found to have a pulse ox of about 70% on room air. the patient is seen with hypoxia, tachypnea, tachycardia and appears in resp iratory distress. We were able to get the patient back to room #7 we placed him on BiPAP. He was found to have hypoglycemia with a blood sugar of 50 and was given an amp of D50. When rechecked his blood sugar it was down to 25 so 2 more amps of D50 were ordered and then given. The patient did not tolerate the BiPAP. He kept pulling off the BiPAP mask and having oxygen desaturation. For this reason the patient was intubated as per the procedure section. Chest x-ray shows bilateral pneumonia and right-sided large pleural effusion. Abdominal x- ray shows what appears to be a large volume of ascites. The patient's labs have been remarkable for a leukocytosis of 15,000, anemia with a hemoglobin of 9, slightly elevated coags without anticoagulation, mild renal insufficiency, elevated proBNP and elevated inflammatory markers consistent with COVID-19 infection. The patient has been given IV antibiotics, IV Decadron. He will be admitted to the hospital for further evaluation and treatment. Hospital Course: 03/13: Awaiting PCCM, GI, ID input. Ordered CTA chest to rule out PE. Fluids increased due to concern for intravascular depletion. Assessment and Plan Neuro: Sedated CV: Sinus tachcardia - continuous telemetry - sinus tachycardia could be intravascular depletion vs PE. - fluids increased, CTA chest ordered - will consider cardiology consultation if no improvement. Pulm: Acute respiratory failure with hypoxia, bilateral pneumonia - CXR: bilateral pneumonia, right sided effusion. - CTA chest ordered, r/o PE - MV: 18/500/6/40 - management per PCC - daily cxr,abg GI: history of ascites, history of cirrhosis, history of rectal bleeding - low albumin, elevated coagulation indices all consistent with cirrhosis - serum ammonia 72 on admission - spironalactone resumed - GI consulted on admission - hyperkalemia, hyponatremia - K : 5.4 - Cr stable, 1.3. - trend on serial bmp. ID: COVID 19 pneumonia, sepsis - COVID 19 PCR positive - trend inflammatory markers - Azithromycin/ceftriaxone - decadron IV x 10 days - holding prophylactic anticoagulation due to history of rectal bleed Heme: history of anemia due to rectal bleed, microcytic anemia - slight elevation in PT, INR, PTT, common in cirrhotic patients - monitor for signs/symptoms of bleeding - follow H/H. Endo: hypoglycemia - several low blood sugar readings - accuchecks ac/hs - hypoglycemic protocol The high probability of a clinically significant, sudden or life threatening deterioration of the [multi] system(s) required my full and direct attention, intervention and personal management. The aggregate critical care time was [60] minutes. This time is in addition to time spent performing reported procedures but includes the following: [x] Data Review and interpretation [x] Patient assessment and monitoring of vital signs [x] Documentation [x] Medication orders and management History Interval history: remains intubated and sedated. Hospitalist Physical - Physical exam Narrative exam: Physical Exam: VITAL SIGNS: Reviewed. GENERAL: The patient appears normally developed, Vital signs as documented. intubated and sedated, thin gentleman, appears older than reported age HEAD: No signs of head trauma. EYES: Pupils are equal. Extraocular motions intact. EARS: Hearing grossly intact. MOUTH: Oropharynx is normal. NECK: No adenopathy, no JVD. CHEST: Chest with clear breath sounds bilaterally. No wheezes, rales, or rhonchi. CARDIAC: Regular rate and rhythm. S1 and S2, without murmurs, gallops, or rubs. VASCULAR: No Edema. Peripheral pulses normal and equal in all extremities. ABDOMEN: Soft, non tender and non distended. No rebound or guarding, and no masses palpated. Bowel Sounds normal. MUSCULOSKELETAL: Good range of motion of all major joints. Extremities without clubbing, cyanosis or edema. NEUROLOGIC EXAM: unable to assess, sedated PSYCHIATRIC: unable to assess, sedated SKIN: detail exam as documented in skin assessment - Constitutional Vitals: Temp Pulse Resp BP Pulse Ox 143 H 25 H 76/49 78 L 03/13/21 12:31 03/13/21 12:31 03/13/21 12:31 03/13/21 12:01 General appearance: Present: cachectic HEART Score - HEART Score Troponin: Troponin T < 0.010 ng/mL (0.00-0.029) 03/12/21 18:54 Results - Labs CBC & Chem 7: 03/12/21 18:54 03/12/21 18:54 Labs: Laboratory Last Values WBC 15.4 K/mm3 (4.5-11.0) H 03/12/21 18:54 RBC 4.29 M/mm3 (3.65-5.03) 03/12/21 18:54 Hgb 9.0 gm/dl (11.8-15.2) L 03/12/21 18:54 Hct 33.2 % (35.5-45.6) L 03/12/21 18:54 MCV 77 fl (84-94) L 03/12/21 18:54 MCH 21 pg (28-32) L 03/12/21 18:54 MCHC 27 % (32-34) L 03/12/21 18:54 RDW 28.1 % (13.2-15.2) H 03/12/21 18:54 Plt Count 270 K/mm3 (140-440) 03/12/21 18:54 Add Manual Diff Complete 03/12/21 18:54 Total Counted 100 03/12/21 18:54 Seg Neutrophils % Pathology Secretary/Transcriptionist 03/12/21 18:54 Seg Neuts % (Manual) 86.0 % (40.0-70.0) H 03/12/21 18:54 Band Neutrophils % 2.0 % 03/12/21 18:54 Lymphocytes % (Manual) 4.0 % (13.4-35.0) L 03/12/21 18:54 Reactive Lymphs % (Man) 0 % 03/12/21 18:54 Monocytes % (Manual) 8.0 % (0.0-7.3) H 03/12/21 18:54 Eosinophils % (Manual) 0 % (0.0-4.3) 03/12/21 18:54 Basophils % (Manual) 0 % (0.0-1.8) 03/12/21 18:54 Metamyelocytes % 0 % 03/12/21 18:54 Myelocytes % 0 % 03/12/21 18:54 Promyelocytes % 0 % 03/12/21 18:54 Blast Cells % 0 % 03/12/21 18:54 Nucleated RBC % Not Reportable 03/12/21 18:54 Seg Neutrophils # Man 13.2 K/mm3 (1.8-7.7) H 03/12/21 18:54 Band Neutrophils # 0.3 K/mm3 03/12/21 18:54 Lymphocytes # (Manual) 0.6 K/mm3 (1.2-5.4) L 03/12/21 18:54 Abs React Lymphs (Man) 0.0 K/mm3 03/12/21 18:54 Monocytes # (Manual) 1.2 K/mm3 (0.0-0.8) H 03/12/21 18:54 Eosinophils # (Manual) 0.0 K/mm3 (0.0-0.4) 03/12/21 18:54 Basophils # (Manual) 0.0 K/mm3 (0.0-0.1) 03/12/21 18:54 Metamyelocytes # 0.0 K/mm3 03/12/21 18:54 Myelocytes # 0.0 K/mm3 03/12/21 18:54 Promyelocytes # 0.0 K/mm3 03/12/21 18:54 Blast Cells # 0.0 K/mm3 03/12/21 18:54 WBC Morphology Not Reportable 03/12/21 18:54 Hypersegmented Neuts Not Reportable 03/12/21 18:54 Hyposegmented Neuts Not Reportable 03/12/21 18:54 Hypogranular Neuts Not Reportable 03/12/21 18:54 Smudge Cells Not Reportable 03/12/21 18:54 Toxic Granulation Not Reportable 03/12/21 18:54 Toxic Vacuolation Not Reportable 03/12/21 18:54 Dohle Bodies Not Reportable 03/12/21 18:54 Pelger-Huet Anomaly Not Reportable 03/12/21 18:54 Saqib Rods Not Reportable 03/12/21 18:54 Platelet Estimate Consistent w auto 03/12/21 18:54 Clumped Platelets Not Reportable 03/12/21 18:54 Plt Clumps, EDTA Not Reportable 03/12/21 18:54 Large Platelets Not Reportable 03/12/21 18:54 Giant Platelets Not Reportable 03/12/21 18:54 Platelet Satelliting Not Reportable 03/12/21 18:54 Plt Morphology Comment Not Reportable 03/12/21 18:54 RBC Morphology Not Reportable 03/12/21 18:54 Dimorphic RBCs Not Reportable 03/12/21 18:54 Polychromasia Not Reportable 03/12/21 18:54 Hypochromasia 2+ 03/12/21 18:54 Poikilocytosis Not Reportable 03/12/21 18:54 Anisocytosis 2+ 03/12/21 18:54 Microcytosis 2+ 03/12/21 18:54 Macrocytosis Not Reportable 03/12/21 18:54 Spherocytes Not Reportable 03/12/21 18:54 Pappenheimer Bodies Not Reportable 03/12/21 18:54 Sickle Cells Not Reportable 03/12/21 18:54 Target Cells Not Reportable 03/12/21 18:54 Tear Drop Cells Not Reportable 03/12/21 18:54 Ovalocytes Few 03/12/21 18:54 Helmet Cells Not Reportable 03/12/21 18:54 [place] Bodies Not Reportable 03/12/21 18:54 [place] Rings Not Reportable 03/12/21 18:54 Vansant Cells Few 03/12/21 18:54 Bite Cells Not Reportable 03/12/21 18:54 Crenated Cell Not Reportable 03/12/21 18:54 Elliptocytes Not Reportable 03/12/21 18:54 Acanthocytes (Spur) Few 03/12/21 18:54 Rouleaux Not Reportable 03/12/21 18:54 Hemoglobin C Crystals Not Reportable 03/12/21 18:54 Schistocytes Not Reportable 03/12/21 18:54 Malaria parasites Not Reportable 03/12/21 18:54 Wolf Bodies Not Reportable 03/12/21 18:54 Hem Pathologist Commnt No 03/12/21 18:54 PT 17.6 Sec. (12.2-14.9) H 03/12/21 18:54 INR 1.31 (0.87-1.13) H 03/12/21 18:54 APTT 38.7 Sec. (24.2-36.6) H 03/12/21 18:54 D-Dimer > 42014 ng/mlDDU (0-234) H 03/12/21 18:54 ABG pH 7.443 (7.320-7.450) 03/13/21 00:05 POC ABG pCO2 33.0 mmHg (32.0-48.0) 03/13/21 00:05 POC ABG pO2 314.9 mmHg (83-108) H 03/13/21 00:05 POC ABG HCO3 22.1 03/13/21 00:05 ABG O2 Saturation 99.7 (0-100) 03/13/21 00:05 POC ABG Base Excess -1.4 03/13/21 00:05 ABG Hemoglobin 12.5 (12.0-17.5) 03/13/21 00:05 ABG Oxyhemoglobin 98.9 (94-98) H 03/13/21 00:05 ABG Methemoglobin 0.1 (0.0-1.5) 03/13/21 00:05 ABG Sodium 136.0 mmol/L (136.0-145.0) 03/13/21 00:05 ABG Potassium 3.8 mmol/L (3.40-4.50) 03/13/21 00:05 ABG Chloride 103.0 mmol/L (98-107) 03/13/21 00:05 ABG Glucose 229 mg/dL (65-95) H 03/13/21 00:05 Carboxyhemoglobin 0.7 (0.5-1.5) 03/13/21 00:05 FiO2 % 100 03/13/21 00:05 Sodium 136 mmol/L (137-145) L 03/12/21 18:54 Potassium 5.4 mmol/L (3.6-5.0) H 03/12/21 18:54 Chloride 98.1 mmol/L (98-107) 03/12/21 18:54 Carbon Dioxide 16 mmol/L (22-30) L 03/12/21 18:54 Anion Gap 27 mmol/L 03/12/21 18:54 BUN 32 mg/dL (9-20) H 03/12/21 18:54 Creatinine 1.3 mg/dL (0.8-1.3) 03/12/21 18:54 Estimated GFR 55 ml/min 03/12/21 18:54 BUN/Creatinine Ratio 25 % 03/12/21 18:54 Glucose 104 mg/dL (75-100) H 03/12/21 18:54 POC Glucose 128 mg/dL (70-105) H 03/13/21 02:29 Calcium 8.7 mg/dL (8.4-10.2) 03/12/21 18:54 Ferritin 414.7 ng/mL (30.0-300.0) H 03/12/21 18:54 Total Bilirubin 1.40 mg/dL (0.1-1.2) H 03/12/21 18:54 AST 71 units/L (5-40) H 03/12/21 18:54 ALT 21 units/L (7-56) 03/12/21 18:54 Alkaline Phosphatase 164 units/L (35-129) H 03/12/21 18:54 Ammonia 72.0 umol/L (25-60) H 03/12/21 18:54 Lactate Dehydrogenase 287 units/L (91-180) H 03/12/21 19:04 Troponin T < 0.010 ng/mL (0.00-0.029) 03/12/21 18:54 C-Reactive Protein 10.80 mg/dL (0.00-1.30) H 03/12/21 19:04 NT-Pro-B Natriuret Pep 1838 pg/mL (0-900) H 03/12/21 18:54 Total Protein 7.1 g/dL (6.3-8.2) 03/12/21 18:54 Albumin 2.2 g/dL (3.9-5) L 03/12/21 18:54 Albumin/Globulin Ratio 0.4 % 03/12/21 18:54 Procalcitonin 8.67 ng/mL (<0.15) 03/12/21 19:04 Arterial Blood Glucose 229 mg/dL (65-95) H 03/13/21 00:05 Blood Type B POSITIVE 03/12/21 18:54 Antibody Screen Negative 03/12/21 18:54 Microbiology: Microbiology 03/12/21 21:07 Peripheral/Venous Blood Culture - Preliminary Culture in Progress 03/12/21 21:00 Peripheral/Venous Blood Culture - Preliminary Culture in Progress Active Medications - Current Medications Current Medications: Generic Name Dose Route Start Last Admin Trade Name Freq PRN Reason Stop Dose Admin Acetaminophen 650 mg 03/12/21 21:29 Acetaminophen 325 Mg Tab PO Q4H PRN Pain MILD(1-3)/Fever >100.5/KHAN Albuterol 2.5 mg 03/12/21 21:29 Albuterol 2.5 Mg/3 Ml Nebu IH Q4HRT PRN Shortness Of Breath Albuterol/Ipratropium 1 ampul 03/13/21 02:00 03/13/21 05:12 Ipratropium/Albuterol Sulfate 3 Ml Ampul.Neb IH Not Given Q6HRT [facility] Dexamethasone 6 mg 03/13/21 10:00 Dexamethasone 4 Mg/Ml Vial IV DAILY [facility] Famotidine 20 mg 03/12/21 22:00 Famotidine 20 Mg/2 Ml Inj IV BID [facility] Ferrous Sulfate 300 mg 03/13/21 10:00 Ferrous Sulfate 300 Mg (60mg Elemental Iron) / 5 Ml Oral Liqd PO BID [facility] Folic Acid 1 mg 03/13/21 10:00 Folic Acid 1 Mg Tab PO QDAY [facility] Hydromorphone HCl 0.5 mg 03/12/21 21:29 Hydromorphone 1 Mg/1 Ml Inj IV Q3H PRN Pain , Severe (7-10) Hydrophilic Ointment 1 applic 03/12/21 20:02 Lip Therapy Vaseline TP Q2HR PRN Dry Lips Dextrose/Sodium Chloride 1,000 mls @ 75 mls/hr 03/12/21 22:00 03/13/21 09:03 D5ns IV 75 mls/hr DIRECT STEPHEN Administration Ceftriaxone Sodium 2 gm in 100 mls @ 200 mls/hr 03/13/21 10:00 Rocephin/Ns 2 Gm/100 Ml IV Q24HR [facility] Protocol Azithromycin 500 mg in 250 mls @ 250 mls/hr 03/13/21 10:00 Zithromax/Ns IV Q24HR [facility] Protocol Dexmedetomidine HCl 400 mcg/ 104 mls @ 3.538 mls/hr 03/13/21 08:00 03/13/21 12:40 Sodium Chloride IV 0.15 mcg/kg/hr TITRATE STEPHEN 2.653 mls/hr Titration Protocol 0.2 MCG/KG/HR Morphine Sulfate 2 mg 03/12/21 21:29 Morphine 2 Mg/1 Ml Inj IV Q4H PRN Pain, Moderate (4-6) Multi-Ingred Cream/Lotion/Oil/Oint 1 applic 03/12/21 20:02 Mineral Oil/Petrolatum, White Ophth Oint 3.5 Gm OU Q4HR PRN Dry Eye(s) Ondansetron HCl 4 mg 03/12/21 21:29 Ondansetron 4 Mg/2 Ml Inj IV Q8H PRN Nausea And Vomiting Senna/Docusate Sodium 1 tab 03/12/21 22:00 Sennosides/Docusate Sodium 8.6/50 Mg Tab FEEDTUBE BID STEPHEN Sodium Chloride 10 ml 03/12/21 22:00 Sodium Chloride 0.9% 10 Ml Flush Syringe IV BID STEPHEN Sodium Chloride 10 ml 03/12/21 21:29 Sodium Chloride 0.9% 10 Ml Flush Syringe IV PRN PRN LINE FLUSH Spironolactone 50 mg 03/13/21 10:00 Spironolactone 50 Mg Tab PO QDAY STEPHEN Thiamine HCl 100 mg 03/13/21 10:00 Thiamine 100 Mg Tab PO QDAY [facility]
--- NOTE | 2021-03-13 14:00 | Consultation ---
History of Present Illness - Reason for Consult Consult date: 03/13/21 COVID-19 Requesting physician: KEKE BRUNNER - History of Present Illness The patient is a 65-year-old male with hepatic cirrhosis, chronic hepatitis C, anemia, ascites, recent hospitalization due to worsening ascites, underwent paracentesis with removal of 13 L of fluid, then discharge was readmitted with worsening shortness of breath and abdominal distention. He tested positive for COVID-19 as an outpatient. Was hypoxic, could not tolerate BiPAP, was subsequently intubated. Labs showed significant leukocytosis of 15.4, D-dimer greater than 10K, procalcitonin 8.67, CRP 10.8, LDH 287, ferritin 414, ammonia 72 Review of Systems: reviewed in the chart, unable to obtain, minimize risk of transmission Past History Past Medical History: anemia, hepatitis, liver disease, renal failure (Tobacco abuser), other (Alcohol abuse, ascites, anemia, COVID) Family history: hypertension Medications and Allergies Allergies Allergy/AdvReac Type Severity Reaction Status Date / Time No Known Allergies Allergy Verified 02/27/21 20:19 Home Medications Medication Instructions Recorded Confirmed Last Taken Type Ferrous Sulfate [Feosol 325 MG tab] 325 mg PO BID #30 tablet 03/04/21 Unknown Rx Folic Acid [Folvite] 1 mg PO QDAY #30 tablet 03/04/21 Unknown Rx Spironolactone [Aldactone] 50 mg PO QDAY #30 tablet 03/04/21 Unknown Rx Thiamine [Vitamin B-1] 100 mg PO QDAY #30 tablet 03/04/21 Unknown Rx Active Meds: Active Medications Acetaminophen (Acetaminophen 325 Mg Tab) 650 mg PO Q4H PRN PRN Reason: Pain MILD(1-3)/Fever >100.5/KHAN Albuterol (Albuterol 2.5 Mg/3 Ml Nebu) 2.5 mg IH Q4HRT PRN PRN Reason: Shortness Of Breath Albuterol/Ipratropium (Ipratropium/Albuterol Sulfate 3 Ml Ampul.Neb) 1 ampul IH Q6HRT STEPHEN Last Admin: 03/13/21 05:12 Dose: Not Given Dexamethasone (Dexamethasone 4 Mg/Ml Vial) 6 mg IV DAILY [facility] Famotidine (Famotidine 20 Mg/2 Ml Inj) 20 mg IV BID [facility] Ferrous Sulfate (Ferrous Sulfate 300 Mg (60mg Elemental Iron) / 5 Ml Oral Liqd) 300 mg PO BID [facility] Folic Acid (Folic Acid 1 Mg Tab) 1 mg PO QDAY [facility] Hydromorphone HCl (Hydromorphone 1 Mg/1 Ml Inj) 0.5 mg IV Q3H PRN PRN Reason: Pain , Severe (7-10) Hydrophilic Ointment (Lip Therapy Vaseline) 1 applic TP Q2HR PRN PRN Reason: Dry Lips Dextrose/Sodium Chloride (D5ns) 1,000 mls @ 75 mls/hr IV DIRECT STEPHEN Last Admin: 03/13/21 09:03 Dose: 75 mls/hr Ceftriaxone Sodium (Rocephin/Ns 2 Gm/100 Ml) 2 gm in 100 mls @ 200 mls/hr IV Q24HR STEPHEN; Protocol Azithromycin (Zithromax/Ns) 500 mg in 250 mls @ 250 mls/hr IV Q24HR STEPHEN; Protocol Dexmedetomidine HCl 400 mcg/ (Sodium Chloride) 104 mls @ 3.538 mls/hr IV TITRATE STEPHEN; Protocol Last Titration: 03/13/21 12:40 Dose: 0.15 mcg/kg/hr, 2.653 mls/hr Morphine Sulfate (Morphine 2 Mg/1 Ml Inj) 2 mg IV Q4H PRN PRN Reason: Pain, Moderate (4-6) Multi-Ingred Cream/Lotion/Oil/Oint (Mineral Oil/Petrolatum, White Ophth Oint 3.5 Gm) 1 applic OU Q4HR PRN PRN Reason: Dry Eye(s) Ondansetron HCl (Ondansetron 4 Mg/2 Ml Inj) 4 mg IV Q8H PRN PRN Reason: Nausea And Vomiting Senna/Docusate Sodium (Sennosides/Docusate Sodium 8.6/50 Mg Tab) 1 tab FEEDTUBE BID [facility] Sodium Chloride (Sodium Chloride 0.9% 10 Ml Flush Syringe) 10 ml IV BID [facility] Sodium Chloride (Sodium Chloride 0.9% 10 Ml Flush Syringe) 10 ml IV PRN PRN PRN Reason: LINE FLUSH Spironolactone (Spironolactone 50 Mg Tab) 50 mg PO QDAY [facility] Thiamine HCl (Thiamine 100 Mg Tab) 100 mg PO QDAY [facility] Physical Examination - Physical Exam Narrative exam: Physical Exam (reviewed in chart to minimize risk of transmission) Constitutional: deferred Head, Ears, Nose: deferred Eyes: deferred Neck: deferred Oral: deferred Cardiovascular: deferred Respiratory: deferred GI: deferred Musculoskeletal: deferred Skin: deferred Hem/Lymphatic: deferred Psych: deferred Neurological: deferred - Constitutional Vitals: Vital Signs Temp Pulse Resp BP Pulse Ox 143 H 25 H 76/49 78 L 03/13/21 12:31 03/13/21 12:31 03/13/21 12:31 03/13/21 12:01 Results - Labs CBC & Chem 7: 03/12/21 18:54 03/12/21 18:54 Labs: Abnormal lab results 03/12/21 03/12/21 03/12/21 Range/Units 18:17 18:54 18:54 WBC 15.4 H (4.5-11.0) K/mm3 Hgb 9.0 L (11.8-15.2) gm/dl Hct 33.2 L (35.5-45.6) % MCV 77 L (84-94) fl MCH 21 L (28-32) pg MCHC 27 L (32-34) % RDW 28.1 H (13.2-15.2) % Seg Neuts % (Manual) 86.0 H (40.0-70.0) % Lymphocytes % (Manual) 4.0 L (13.4-35.0) % Monocytes % (Manual) 8.0 H (0.0-7.3) % Seg Neutrophils # Man 13.2 H (1.8-7.7) K/mm3 Lymphocytes # (Manual) 0.6 L (1.2-5.4) K/mm3 Monocytes # (Manual) 1.2 H (0.0-0.8) K/mm3 PT (12.2-14.9) Sec. INR (0.87-1.13) APTT (24.2-36.6) Sec. D-Dimer (0-234) ng/mlDDU POC ABG pO2 (83-108) mmHg ABG Oxyhemoglobin (94-98) ABG Glucose (65-95) mg/dL Sodium 136 L (137-145) mmol/L Potassium 5.4 H (3.6-5.0) mmol/L Carbon Dioxide 16 L (22-30) mmol/L BUN 32 H (9-20) mg/dL Glucose 104 H (75-100) mg/dL POC Glucose 58 L (70-105) mg/dL Ferritin (30.0-300.0) ng/mL Total Bilirubin 1.40 H (0.1-1.2) mg/dL AST 71 H (5-40) units/L Alkaline Phosphatase 164 H (35-129) units/L Ammonia (25-60) umol/L Lactate Dehydrogenase (91-180) units/L C-Reactive Protein (0.00-1.30) mg/dL NT-Pro-B Natriuret Pep (0-900) pg/mL Albumin 2.2 L (3.9-5) g/dL Arterial Blood Glucose (65-95) mg/dL 03/12/21 03/12/21 03/12/21 Range/Units 18:54 18:54 18:54 WBC (4.5-11.0) K/mm3 Hgb (11.8-15.2) gm/dl Hct (35.5-45.6) % MCV (84-94) fl MCH (28-32) pg MCHC (32-34) % RDW (13.2-15.2) % Seg Neuts % (Manual) (40.0-70.0) % Lymphocytes % (Manual) (13.4-35.0) % Monocytes % (Manual) (0.0-7.3) % Seg Neutrophils # Man (1.8-7.7) K/mm3 Lymphocytes # (Manual) (1.2-5.4) K/mm3 Monocytes # (Manual) (0.0-0.8) K/mm3 PT 17.6 H (12.2-14.9) Sec. INR 1.31 H (0.87-1.13) APTT 38.7 H (24.2-36.6) Sec. D-Dimer > 07291 H (0-234) ng/mlDDU POC ABG pO2 (83-108) mmHg ABG Oxyhemoglobin (94-98) ABG Glucose (65-95) mg/dL Sodium (137-145) mmol/L Potassium (3.6-5.0) mmol/L Carbon Dioxide (22-30) mmol/L BUN (9-20) mg/dL Glucose (75-100) mg/dL POC Glucose (70-105) mg/dL Ferritin (30.0-300.0) ng/mL Total Bilirubin (0.1-1.2) mg/dL AST (5-40) units/L Alkaline Phosphatase (35-129) units/L Ammonia 72.0 H (25-60) umol/L Lactate Dehydrogenase (91-180) units/L C-Reactive Protein (0.00-1.30) mg/dL NT-Pro-B Natriuret Pep 1838 H (0-900) pg/mL Albumin (3.9-5) g/dL Arterial Blood Glucose (65-95) mg/dL 03/12/21 03/12/21 03/12/21 Range/Units 18:54 19:04 19:21 WBC (4.5-11.0) K/mm3 Hgb (11.8-15.2) gm/dl Hct (35.5-45.6) % MCV (84-94) fl MCH (28-32) pg MCHC (32-34) % RDW (13.2-15.2) % Seg Neuts % (Manual) (40.0-70.0) % Lymphocytes % (Manual) (13.4-35.0) % Monocytes % (Manual) (0.0-7.3) % Seg Neutrophils # Man (1.8-7.7) K/mm3 Lymphocytes # (Manual) (1.2-5.4) K/mm3 Monocytes # (Manual) (0.0-0.8) K/mm3 PT (12.2-14.9) Sec. INR (0.87-1.13) APTT (24.2-36.6) Sec. D-Dimer (0-234) ng/mlDDU POC ABG pO2 (83-108) mmHg ABG Oxyhemoglobin (94-98) ABG Glucose (65-95) mg/dL Sodium (137-145) mmol/L Potassium (3.6-5.0) mmol/L Carbon Dioxide (22-30) mmol/L BUN (9-20) mg/dL Glucose (75-100) mg/dL POC Glucose 30 L (70-105) mg/dL Ferritin 414.7 H (30.0-300.0) ng/mL Total Bilirubin (0.1-1.2) mg/dL AST (5-40) units/L Alkaline Phosphatase (35-129) units/L Ammonia (25-60) umol/L Lactate Dehydrogenase 287 H (91-180) units/L C-Reactive Protein 10.80 H (0.00-1.30) mg/dL NT-Pro-B Natriuret Pep (0-900) pg/mL Albumin (3.9-5) g/dL Arterial Blood Glucose (65-95) mg/dL 03/12/21 03/12/21 03/13/21 Range/Units 19:50 20:14 00:05 WBC (4.5-11.0) K/mm3 Hgb (11.8-15.2) gm/dl Hct (35.5-45.6) % MCV (84-94) fl MCH (28-32) pg MCHC (32-34) % RDW (13.2-15.2) % Seg Neuts % (Manual) (40.0-70.0) % Lymphocytes % (Manual) (13.4-35.0) % Monocytes % (Manual) (0.0-7.3) % Seg Neutrophils # Man (1.8-7.7) K/mm3 Lymphocytes # (Manual) (1.2-5.4) K/mm3 Monocytes # (Manual) (0.0-0.8) K/mm3 PT (12.2-14.9) Sec. INR (0.87-1.13) APTT (24.2-36.6) Sec. D-Dimer (0-234) ng/mlDDU POC ABG pO2 314.9 H (83-108) mmHg ABG Oxyhemoglobin 98.9 H (94-98) ABG Glucose 229 H (65-95) mg/dL Sodium (137-145) mmol/L Potassium (3.6-5.0) mmol/L Carbon Dioxide (22-30) mmol/L BUN (9-20) mg/dL Glucose (75-100) mg/dL POC Glucose 24 L 371 H (70-105) mg/dL Ferritin (30.0-300.0) ng/mL Total Bilirubin (0.1-1.2) mg/dL AST (5-40) units/L Alkaline Phosphatase (35-129) units/L Ammonia (25-60) umol/L Lactate Dehydrogenase (91-180) units/L C-Reactive Protein (0.00-1.30) mg/dL NT-Pro-B Natriuret Pep (0-900) pg/mL Albumin (3.9-5) g/dL Arterial Blood Glucose 229 H (65-95) mg/dL 03/13/21 Range/Units 02:29 WBC (4.5-11.0) K/mm3 Hgb (11.8-15.2) gm/dl Hct (35.5-45.6) % MCV (84-94) fl MCH (28-32) pg MCHC (32-34) % RDW (13.2-15.2) % Seg Neuts % (Manual) (40.0-70.0) % Lymphocytes % (Manual) (13.4-35.0) % Monocytes % (Manual) (0.0-7.3) % Seg Neutrophils # Man (1.8-7.7) K/mm3 Lymphocytes # (Manual) (1.2-5.4) K/mm3 Monocytes # (Manual) (0.0-0.8) K/mm3 PT (12.2-14.9) Sec. INR (0.87-1.13) APTT (24.2-36.6) Sec. D-Dimer (0-234) ng/mlDDU POC ABG pO2 (83-108) mmHg ABG Oxyhemoglobin (94-98) ABG Glucose (65-95) mg/dL Sodium (137-145) mmol/L Potassium (3.6-5.0) mmol/L Carbon Dioxide (22-30) mmol/L BUN (9-20) mg/dL Glucose (75-100) mg/dL POC Glucose 128 H (70-105) mg/dL Ferritin (30.0-300.0) ng/mL Total Bilirubin (0.1-1.2) mg/dL AST (5-40) units/L Alkaline Phosphatase (35-129) units/L Ammonia (25-60) umol/L Lactate Dehydrogenase (91-180) units/L C-Reactive Protein (0.00-1.30) mg/dL NT-Pro-B Natriuret Pep (0-900) pg/mL Albumin (3.9-5) g/dL Arterial Blood Glucose (65-95) mg/dL - Imaging and Cardiology Chest x-ray: report reviewed, image reviewed (R pleural effusion. ) Assessment and Plan Cultures: SARS CoV2 PCR: Positive as outpatient 03/12/2021 blood culture: In process A/P: 65-year-old male with hepatic cirrhosis, chronic hepatitis C, anemia, ascites, recent hospitalization due to worsening ascites, underwent paracentesis with removal of 13 L of fluid, now with: #Severe sepsis: from COVID, also rule out SBP. Labs showed significant leukocytosis of 15.4, D-dimer greater than 10K, procalcitonin 8.67, CRP 10.8, LDH 287, ferritin 414, ammonia 72. #Bilateral pneumonia: secondary to COVID-19 #Right pleural effusion, ascites #Acute hypoxic respiratory failure: on the vent #Hepatic cirrhosis with ascites #Chronic hepatitis C: genotype 1a. #Transaminitis Recs: -IV/PO Dexamethasone x 10 days -IV remdesivir x 5 days -Not a candidate for Actemra due to elevated WBC and procalcitonin -prophylactic anticoagulation based on d-dimer per hospital protocol -continue empiric abx -trend ferritin, d-dimer, CRP every 2-3 days -f/u paracentesis, please send fluid for cell count and culture Jhony Nickerson MD, FACP, [facility] ([facility]) O: [phone] F: [phone]
[2021-03-13 14:41] LABS: Hemoglobin 8.8 gm/dl (11.8-15.2); Mean Corpuscular HGB Conc 29 % (32-34); Mean Corpuscular Volume 75 fl (84-94); Platelet Count 237 K/mm3 (140-440); Red Blood Count 4.11 M/mm3 (3.65-5.03); Red Cell Distribution Width 27.5 % (13.2-15.2)
[2021-03-13 14:58] LABS: Albumin 1.7 g/dL (3.9-5); Calcium 7.8 mg/dL (8.4-10.2)
[2021-03-13] MEDS ORDERED: REMDESIVIR 200 MG in SODIUM CHLORIDE 0.9% 250ML 250 ML IV SCH (15:15)
[2021-03-13 15:24] LABS: Band Neutrophils # (Manual) 0.7 K/mm3; Basophils % (Manual) 0 % (0.0-1.8); Eosinophils % (Manual) 0 % (0.0-4.3); Total Cells Counted 100
[2021-03-13 15:26] LABS: Anisocytosis 2+; Hypochromasia 2+
[2021-03-13 15:27] LABS: Burr Cells Few; Large Platelets Few; Platelet Clumps Rare; Platelet Estimate Consistent w Auto; Toxic Granulation 1+
[2021-03-13] MEDS ORDERED: ALBUMIN HUMAN 25% (25 GM/100 ML) INJ IV ONE (16:02)
[2021-03-13] MEDS: SENNOSIDES/DOCUSATE SODIUM 8.6/50 MG TAB FEEDTUBE SCH ×3 (18:10→23:51)
[2021-03-13] MEDS: SODIUM CHLORIDE 0.9% 50 ML IVPB IV SCH (18:35)
[2021-03-13] MEDS: cefTRIAXone/NS 2 GM/100 ML 2 GM/100 ML BAG IV SCH (18:35)
[2021-03-13] MEDS: NORepinephrine/NS 8 MG-250 ML 8 MG/250 ML INFUS..BTL IV SCH (20:36)
[2021-03-13] MEDS: FAMOTIDINE 20 MG/2 ML INJ IV SCH (22:25)
[2021-03-13] MEDS: dexAMETHasone 4 MG/ML VIAL IV SCH (22:26)
[2021-03-13] MEDS: AZITHROMYCIN/NS 500 MG/250 ML 500 MG/250 ML BAG IV SCH (22:27)
[2021-03-14] MEDS: FAMOTIDINE 20 MG/2 ML INJ IV SCH ×4 (00:17→23:03)
[2021-03-14] MEDS: NORepinephrine/NS 8 MG-250 ML 8 MG/250 ML INFUS..BTL IV SCH (00:51)
--- NOTE | 2021-03-14 01:15 | Consultation ---
DATE OF CONSULTATION: 03/13/2021 REFERRING PHYSICIAN: Jayesh Harper. INDICATION: 1. Cirrhosis. 2. Respiratory failure. HISTORY OF PRESENT ILLNESS: The patient is a 65-year-old black male with history of alcohol-related cirrhosis, anemia, rectal bleeding, who presented to the Emergency Room with abdominal pain and shortness of breath. The patient was noted to be COVID positive. The patient subsequently had continuous respiratory distress and had to be intubated. There were no reports of signs of bleeding including bright red blood per rectum, melena or hematemesis. The patient had been noted to have abdominal distention. GI is consulted to aid in management. No other specific complaints otherwise. PAST MEDICAL HISTORY: 1. Anemia. 2. Cirrhosis. 3. Alcohol abuse. 4. Ascites. 5. Anemia. MEDICATIONS: Reviewed and updated in chart. ALLERGIES: No known drug allergies. SOCIAL HISTORY: Reported alcohol abuse and cigarettes. FAMILY HISTORY: Negative for colon cancer, IBD, or liver disease. REVIEW OF SYSTEMS: GENERAL: Per family, no general weakness. HEENT: No visual complaints. PULMONARY: Reports of shortness of breath, chest pain. GASTROINTESTINAL: Reports some abdominal distention. All points of 13-point review of systems reportedly negative. PHYSICAL EXAMINATION: VITAL SIGNS: Temperature of 98.7, pulse of 107, respirations 18, blood pressure 111/60. GENERAL: Intubated, sedated, in no acute distress. HEENT: Pupils round, reactive. PULMONARY: Rhonchi. CARDIOVASCULAR: Regular rhythm. ABDOMEN: Positive bowel sounds, soft. SKIN: No obvious rashes. LABORATORY DATA: Pertinent for white count of 17.3, hemoglobin and hematocrit of 8.8 and 31.0, platelet count 237. INR of 1.31. Chem-7: Sodium 137, potassium 4.6, chloride 102, CO2 of 16, BUN and creatinine 35 and 1.5, AST and ALT of 82 and 19 with a total bilirubin of 1.4 and an alkaline phosphatase of 163. ASSESSMENT: A 65-year-old black male with history of alcohol abuse and cirrhosis, now COVID positive, presented with shortness of breath and acute respiratory failure and had to be intubated. The patient with pulmonary infiltrates. Suggest COVID-related pneumonia. The patient does have a history of cirrhosis with some ascites, but his abdominal area is not that distended at this time. Suspect cirrhosis is a secondary issue related to his admission and intubation. PLAN: 1. Agree with thiamine restarted on his pulmonary management per primary team and Pulmonary service. 2. Agree with antibiotics as ordered. 3. Watch for signs of alcohol withdrawal. 4. We will order abdominal ultrasound and consider paracentesis if necessary. 5. No indications for scope at this time as the patient's blood counts are stable. 6. We will follow further recommendation based on progress results of above. TID: [id number] RECEIPT: [id number] CAB/PUN
--- NOTE | 2021-03-14 02:43 | Cat Scan Report ---
CTA chest with contrast INDICATION : Hospitalist wants to evaluate for a Pulmonary Embolism. Acute shortness of breath TECHNIQUE: Axial imaging performed through the chest, with contrast bolus timing set to maximize opa cification of the pulmonary arteries. 3-plane MIP reformatted images were obtained. All CT scans at this location are performed using CT dose reduction for ALARA by means of automated exposure control. 100 mL of intravenous contrast administered. COMPARISON: None FINDINGS: Bolus/PTE: Contrast bolus timing is adequate. No filling defect is present to suggest PTE. Mediastinum: Heart and great vessels appear normal. Shoddy mediastinal lymph nodes are present. End otracheal tube and right IJ CVL in satisfactory position. Lungs: Moderate-sized pleural effusion on the right which appears to be partially loculated. There i s associated bibasilar consolidation and scattered multifocal groundglass airspace disease in the em kground of mild emphysema. Upper abdomen: Limited imaging of the upper abdomen shows nothing acute. Moderate volume ascites. Bones: Degenerative changes in the spine with nothing acute. IMPRESSION: 1. Negative for PTE. 2. Dense bibasilar consolidation and moderate-sized pleural effusion on the right which appears to be partially loculated. Scattered groundglass airspace disease throughout the lungs may be seen with an atypical etiology such as viral pneumonia. Signer Name: Sean Reed MD Signed: 03/14/2021 2:38 AM Workstation Name: [email or web address]
--- NOTE | 2021-03-14 05:02 | XRay Report ---
CHEST - 1 VIEW INDICATION: follow up respiratory failure COMPARISON: Yesterday FINDINGS: SUPPORT DEVICES: Stable support device positioning. HEART: Stable cardiomediastinal silhouette. LUNGS/PLEURA: Moderate patchy airspace disease primarily throughout the right lung where there is al so a layering effusion. Minimal patchy left basilar airspace disease, a new finding. ADDITIONAL FINDINGS: None. IMPRESSION: Slightly worsened exam. Signer Name: Sean Reed MD Signed: 03/14/2021 4:58 AM Workstation Name: [email or web address]
[2021-03-14 06:12] LABS: Mean Corpuscular HGB Conc 27 % (32-34); Mean Corpuscular Volume 80 fl (84-94); Platelet Count 182 K/mm3 (140-440)
[2021-03-14 06:14] LABS: Hematocrit 29.4 % (35.5-45.6); Hemoglobin 7.9 gm/dl (11.8-15.2); Red Cell Distribution Width 28.6 % (13.2-15.2)
[2021-03-14 06:30] LABS: Alanine Aminotransferase 501 units/L (7-56); Albumin 1.8 g/dL (3.9-5); BUN/Creatinine Ratio 15; Blood Urea Nitrogen 37 mg/dL (9-20); Calcium 7.9 mg/dL (8.4-10.2); Hemolysis Index 2
[2021-03-14] MEDS ORDERED: SODIUM BICARB 8.4% 50 MEQ/50 ML SYRINGE IV ONE (06:59)
[2021-03-14] MEDS ORDERED: DEXTROSE 50% IN WATER (25GM) 50 ML VIAL IV NR ×2 (07:23→08:14)
[2021-03-14] MEDS: SODIUM BICARBONATE 150 MEQ in DEXTROSE 5% IN WATER 1,000 ML IV SCH (07:42)
[2021-03-14 07:59] LABS: C-Reactive Protein 8.3 mg/dL (0.00-1.30); Calcium 7.6 mg/dL (8.4-10.2)
--- NOTE | 2021-03-14 08:48 | Progress Note ---
Assessment and Plan Assessment and plan: History of present illness: 65-year-old -H[place] male with past medical history of ascites, cirrhosis and anemia, rectal bleed was brought to the emergency room because of shortness of breath, abdominal distention, and the patient is positive for COVID-19. Patient was admitted here on 02/28 until 03/04. When he visited on 02/28 the patient was found to have liver cirrhosis causing ascites, as well as anemia and he was having some intermittent rectal bleeding. During that last admission the patient had a paracentesis in which they removed 13 L of fluid, and he had a colonoscopy done with GI. Patient's daughter says that he tested positive for COVID-19 last week. Patient is currently AAO x3. The patient was seen in triage and was found to have a pulse ox of about 70% on room air. the patient is seen with hypoxia, tachypnea, tachycardia and appears in resp iratory distress. We were able to get the patient back to room #7 we placed him on BiPAP. He was found to have hypoglycemia with a blood sugar of 50 and was given an amp of D50. When rechecked his blood sugar it was down to 25 so 2 more amps of D50 were ordered and then given. The patient did not tolerate the BiPAP. He kept pulling off the BiPAP mask and having oxygen desaturation. For this reason the patient was intubated as per the procedure section. Chest x-ray shows bilateral pneumonia and right-sided large pleural effusion. Abdominal x- ray shows what appears to be a large volume of ascites. The patient's labs have been remarkable for a leukocytosis of 15,000, anemia with a hemoglobin of 9, slightly elevated coags without anticoagulation, mild renal insufficiency, elevated proBNP and elevated inflammatory markers consistent with COVID-19 infection. The patient has been given IV antibiotics, IV Decadron. He will be admitted to the hospital for further evaluation and treatment. Hospital Course: 03/13: Awaiting PCCM, GI, ID input. Ordered CTA chest to rule out PE. Fluids increased due to concern for intravascular depletion. 03/14: Worsening hepatic transaminits, hypoglycemia noted. D/w GI and CCM regarding worsening liver function, likely shock liver. Will attempt [place] transfer for hepatology services, call placed. Worsening renal function, consult placed to nephrology. Assessment and Plan Neuro: Sedated, acute encephalopathy - on fetanyl for sedation - became hypotensive on propofol and precedex. - mild gag, sluggish pupils on my enocunter. could be fentanyl. - will need proper eval off of sedation, advised RN to keep off for now. - will consider neuro work up if no response. CV: Sinus tachcardia - continuous telemetry - sinus tachycardia could be intravascular depletion vs PE. - fluids increased, CTA chest ordered - will consider cardiology consultation if no improvement. Pulm: Acute respiratory failure with hypoxia, bilateral pneumonia - CXR: bilateral pneumonia, right sided effusion. - CTA chest ordered, r/o PE - MV: 18/500/6/40 - management per PCCM - daily cxr,abg GI: history of ascites, history of cirrhosis, history of rectal bleeding, acute decompensation liver failure, shock liver, transamitis ,hepatitis C positive - low albumin, elevated coagulation indices, elevated bilirubin, transaminitis all consistent with acute liver failure in the setting of shock liver. Has a hx of Hep C cirrhosis - MELD NA: 22. - serum ammonia 72 on admission - spironalactone resumed - Elevated transaminases, hepatitis panel-hep C positive, Abd US ordered - on steroids. - avoid hepatotoxins - GI consulted on admission, will follow recs. - hyperkalemia, hyponatremia, IVON - K : 5.4 - Cr stable, 1.3. - trend on serial bmp. - creatinine worsened to 2.3. - consultation placed to nephrology ID: COVID 19 pneumonia, sepsis - COVID 19 PCR positive - trend inflammatory markers - Azithromycin/ceftriaxone - decadron IV x 10 days - holding prophylactic anticoagulation due to history of rectal bleed Heme: history of anemia due to rectal bleed, microcytic anemia - slight elevation in PT, INR, PTT, common in cirrhotic patients - monitor for signs/symptoms of bleeding - follow H/H. Endo: hypoglycemia - several low blood sugar readings - accuchecks ac/hs - hypoglycemic protocol The high probability of a clinically significant, sudden or life threatening deterioration of the [multi] system(s) required my full and direct attention, intervention and personal management. The aggregate critical care time was [90] minutes. This time is in addition to time spent performing reported procedures but includes the following: [x] Data Review and interpretation [x] Patient assessment and monitoring of vital signs [x] Documentation [x] Medication orders and management Disposition Plan: ICU Total Time Spent with Patient (Minutes): 90 History Interval history: Remains intubated. Fentanyl off, not following commands off sedation. Mild gag per RN when placing NG tube. Hospitalist Physical - Physical exam Narrative exam: Physical Exam: VITAL SIGNS: Reviewed. GENERAL: The patient appears normally developed, Vital signs as documented. intubated and sedated, thin gentleman, appears older than reported age HEAD: No signs of head trauma. EYES: Pupils are equal. Extraocular motions intact. EARS: Hearing grossly intact. MOUTH: Oropharynx is normal. NECK: No adenopathy, no JVD. CHEST: Chest with clear breath sounds bilaterally. No wheezes, rales, or rhonchi. CARDIAC: Regular rate and rhythm. S1 and S2, without murmurs, gallops, or rubs. VASCULAR: No Edema. Peripheral pulses normal and equal in all extremities. ABDOMEN: Soft, non tender and non distended. No rebound or guarding, and no masses palpated. Bowel Sounds normal. MUSCULOSKELETAL: Good range of motion of all major joints. Extremities without clubbing, cyanosis or edema. NEUROLOGIC EXAM: unable to assess, sedated PSYCHIATRIC: unable to assess, sedated SKIN: detail exam as documented in skin assessment - Constitutional Vitals: Temp Pulse Resp BP Pulse Ox 98.5 F 113 H 33 H 108/32 100 03/14/21 00:30 03/14/21 08:31 03/14/21 08:31 03/14/21 08:31 03/14/21 05:00 General appearance: Present: cachectic HEART Score - HEART Score Troponin: Troponin T < 0.010 ng/mL (0.00-0.029) 03/12/21 18:54 Results - Labs CBC & Chem 7: 03/14/21 05:34 03/14/21 07:18 Labs: Laboratory Last Values WBC 16.9 K/mm3 (4.5-11.0) H 03/14/21 05:34 RBC 3.70 M/mm3 (3.65-5.03) 03/14/21 05:34 Hgb 7.9 gm/dl (11.8-15.2) L 03/14/21 05:34 Hct 29.4 % (35.5-45.6) L 03/14/21 05:34 MCV 80 fl (84-94) L 03/14/21 05:34 MCH 22 pg (28-32) L 03/14/21 05:34 MCHC 27 % (32-34) L 03/14/21 05:34 RDW 28.6 % (13.2-15.2) H 03/14/21 05:34 Plt Count 182 K/mm3 (140-440) 03/14/21 05:34 Add Manual Diff Complete 03/13/21 14:32 Total Counted 100 03/13/21 14:32 Seg Neutrophils % System Programmer 03/14/21 05:34 Seg Neuts % (Manual) 91.0 % (40.0-70.0) H 03/13/21 14:32 Band Neutrophils % 4.0 % 03/13/21 14:32 Lymphocytes % (Manual) 0 % (13.4-35.0) L 03/13/21 14:32 Reactive Lymphs % (Man) 0 % 03/13/21 14:32 Monocytes % (Manual) 5.0 % (0.0-7.3) 03/13/21 14:32 Eosinophils % (Manual) 0 % (0.0-4.3) 03/13/21 14:32 Basophils % (Manual) 0 % (0.0-1.8) 03/13/21 14:32 Metamyelocytes % 0 % 03/13/21 14:32 Myelocytes % 0 % 03/13/21 14:32 Promyelocytes % 0 % 03/13/21 14:32 Blast Cells % 0 % 03/13/21 14:32 Nucleated RBC % 2.0 % (0.0-0.9) H 03/13/21 14:32 Seg Neutrophils # Man 15.7 K/mm3 (1.8-7.7) H 03/13/21 14:32 Band Neutrophils # 0.7 K/mm3 03/13/21 14:32 Lymphocytes # (Manual) 0.0 K/mm3 (1.2-5.4) L 03/13/21 14:32 Abs React Lymphs (Man) 0.0 K/mm3 03/13/21 14:32 Monocytes # (Manual) 0.9 K/mm3 (0.0-0.8) H 03/13/21 14:32 Eosinophils # (Manual) 0.0 K/mm3 (0.0-0.4) 03/13/21 14:32 Basophils # (Manual) 0.0 K/mm3 (0.0-0.1) 03/13/21 14:32 Metamyelocytes # 0.0 K/mm3 03/13/21 14:32 Myelocytes # 0.0 K/mm3 03/13/21 14:32 Promyelocytes # 0.0 K/mm3 03/13/21 14:32 Blast Cells # 0.0 K/mm3 03/13/21 14:32 WBC Morphology Not Reportable 03/13/21 14:32 Hypersegmented Neuts Not Reportable 03/13/21 14:32 Hyposegmented Neuts Not Reportable 03/13/21 14:32 Hypogranular Neuts Not Reportable 03/13/21 14:32 Smudge Cells Not Reportable 03/13/21 14:32 Toxic Granulation 1+ 03/13/21 14:32 Toxic Vacuolation Not Reportable 03/13/21 14:32 Dohle Bodies Not Reportable 03/13/21 14:32 Pelger-Huet Anomaly Not Reportable 03/13/21 14:32 Saqib Rods Not Reportable 03/13/21 14:32 Platelet Estimate Consistent w auto 03/13/21 14:32 Clumped Platelets Rare 03/13/21 14:32 Plt Clumps, EDTA Not Reportable 03/13/21 14:32 Large Platelets Few 03/13/21 14:32 Giant Platelets Not Reportable 03/13/21 14:32 Platelet Satelliting Not Reportable 03/13/21 14:32 Plt Morphology Comment Not Reportable 03/13/21 14:32 RBC Morphology Not Reportable 03/13/21 14:32 Dimorphic RBCs Not Reportable 03/13/21 14:32 Polychromasia Few 03/13/21 14:32 Hypochromasia 2+ 03/13/21 14:32 Poikilocytosis Not Reportable 03/13/21 14:32 Anisocytosis 2+ 03/13/21 14:32 Microcytosis 2+ 03/13/21 14:32 Macrocytosis Not Reportable 03/13/21 14:32 Spherocytes Not Reportable 03/13/21 14:32 Pappenheimer Bodies Not Reportable 03/13/21 14:32 Sickle Cells Not Reportable 03/13/21 14:32 Target Cells Not Reportable 03/13/21 14:32 Tear Drop Cells Not Reportable 03/13/21 14:32 Ovalocytes Not Reportable 03/13/21 14:32 Helmet Cells Not Reportable 03/13/21 14:32 [place] Bodies Not Reportable 03/13/21 14:32 [place] Rings Not Reportable 03/13/21 14:32 [place] Cells Few 03/13/21 14:32 Bite Cells Not Reportable 03/13/21 14:32 Crenated Cell Not Reportable 03/13/21 14:32 Elliptocytes Not Reportable 03/13/21 14:32 Acanthocytes (Spur) Not Reportable 03/13/21 14:32 Rouleaux Not Reportable 03/13/21 14:32 Hemoglobin C Crystals Not Reportable 03/13/21 14:32 Schistocytes Not Reportable 03/13/21 14:32 Malaria parasites Not Reportable 03/13/21 14:32 Wolf Bodies Not Reportable 03/13/21 14:32 Hem Pathologist Commnt No 03/13/21 14:32 PT 17.6 Sec. (12.2-14.9) H 03/12/21 18:54 INR 1.31 (0.87-1.13) H 03/12/21 18:54 APTT 38.7 Sec. (24.2-36.6) H 03/12/21 18:54 D-Dimer > 06022 ng/mlDDU (0-234) H 03/14/21 05:34 ABG pH 7.443 (7.320-7.450) 03/13/21 00:05 POC ABG pCO2 33.0 mmHg (32.0-48.0) 03/13/21 00:05 POC ABG pO2 314.9 mmHg (83-108) H 03/13/21 00:05 POC ABG HCO3 22.1 03/13/21 00:05 ABG O2 Saturation 99.7 (0-100) 03/13/21 00:05 POC ABG Base Excess -1.4 03/13/21 00:05 ABG Hemoglobin 12.5 (12.0-17.5) 03/13/21 00:05 ABG Oxyhemoglobin 98.9 (94-98) H 03/13/21 00:05 ABG Methemoglobin 0.1 (0.0-1.5) 03/13/21 00:05 ABG Sodium 136.0 mmol/L (136.0-145.0) 03/13/21 00:05 ABG Potassium 3.8 mmol/L (3.40-4.50) 03/13/21 00:05 ABG Chloride 103.0 mmol/L (98-107) 03/13/21 00:05 ABG Glucose 229 mg/dL (65-95) H 03/13/21 00:05 Carboxyhemoglobin 0.7 (0.5-1.5) 03/13/21 00:05 FiO2 % 100 03/13/21 00:05 Sodium 145 mmol/L (137-145) 03/14/21 07:18 Potassium 5.4 mmol/L (3.6-5.0) H 03/14/21 07:18 Chloride 106.5 mmol/L (98-107) 03/14/21 07:18 Carbon Dioxide 12 mmol/L (22-30) L 03/14/21 07:18 Anion Gap 32 mmol/L 03/14/21 07:18 BUN 38 mg/dL (9-20) H 03/14/21 07:18 Creatinine 2.5 mg/dL (0.8-1.3) H D 03/14/21 07:18 Estimated GFR 26 ml/min 03/14/21 07:18 BUN/Creatinine Ratio 15 % 03/14/21 07:18 Glucose 29 mg/dL (75-100) L* 03/14/21 07:18 POC Glucose 11 mg/dL (70-105) L 03/14/21 08:08 Calcium 7.6 mg/dL (8.4-10.2) L 03/14/21 07:18 Ferritin 414.7 ng/mL (30.0-300.0) H 03/12/21 18:54 Total Bilirubin 1.80 mg/dL (0.1-1.2) H 03/14/21 05:34 AST 4019 units/L (5-40) H 03/14/21 05:34 ALT 501 units/L (7-56) H 03/14/21 05:34 Alkaline Phosphatase 128 units/L (35-129) 03/14/21 05:34 Ammonia 72.0 umol/L (25-60) H 03/12/21 18:54 Lactate Dehydrogenase 2218 units/L (91-180) H 03/14/21 07:18 Troponin T < 0.010 ng/mL (0.00-0.029) 03/12/21 18:54 C-Reactive Protein 8.30 mg/dL (0.00-1.30) H 03/14/21 07:18 NT-Pro-B Natriuret Pep 1838 pg/mL (0-900) H 03/12/21 18:54 Total Protein 5.8 g/dL (6.3-8.2) L 03/14/21 05:34 Albumin 1.8 g/dL (3.9-5) L 03/14/21 05:34 Albumin/Globulin Ratio 0.5 % 03/14/21 05:34 Procalcitonin 8.67 ng/mL (<0.15) 03/12/21 19:04 Arterial Blood Glucose 229 mg/dL (65-95) H 03/13/21 00:05 Coronavirus (PCR) Positive (Negative) A 03/13/21 Unknown Blood Type B POSITIVE 03/12/21 18:54 Antibody Screen Negative 03/12/21 18:54 Microbiology: Microbiology 03/12/21 21:07 Peripheral/Venous Blood Culture - Preliminary NO GROWTH AFTER 24 HOURS 03/12/21 21:00 Peripheral/Venous Blood Culture - Preliminary NO GROWTH AFTER 24 HOURS [place]/IV: Voiding Method Indwelling Catheter Active Medications - Current Medications Current Medications: Generic Name Dose Route Start Last Admin Trade Name Freq PRN Reason Stop Dose Admin Acetaminophen 650 mg 03/12/21 21:29 Acetaminophen 325 Mg Tab PO Q4H PRN Pain MILD(1-3)/Fever >100.5/KHAN Albuterol 2.5 mg 03/12/21 21:29 Albuterol 2.5 Mg/3 Ml Nebu IH Q4HRT PRN Shortness Of Breath Albuterol/Ipratropium 1 ampul 03/13/21 02:00 03/13/21 05:12 Ipratropium/Albuterol Sulfate 3 Ml Ampul.Neb IH Not Given Q6HRT STEPHEN Dexamethasone 6 mg 03/13/21 10:00 03/13/21 22:26 Dexamethasone 4 Mg/Ml Vial IV 03/22/21 10:01 Not Given DAILY STEPHEN Dextrose 25 gm 03/14/21 08:14 Dextrose 50% In Water (25gm) 50 Ml Vial IV 03/14/21 10:00 ONCE NR Protocol Famotidine 20 mg 03/12/21 22:00 03/14/21 00:17 Famotidine 20 Mg/2 Ml Inj IV 20 mg BID STEPHEN Administration Fentanyl 50 mcg 03/13/21 16:03 Fentanyl 100 Mcg/2 Ml Inj IV Q10MIN PRN ANALGESIA Ferrous Sulfate 300 mg 03/13/21 10:00 03/13/21 23:50 Ferrous Sulfate 300 Mg (60mg Elemental Iron) / 5 Ml Oral Liqd PO Not Given BID STEPHEN Folic Acid 1 mg 03/13/21 10:00 03/13/21 10:00 Folic Acid 1 Mg Tab PO Not Given QDAY [facility] Hydromorphone HCl 0.5 mg 03/12/21 21:29 Hydromorphone 1 Mg/1 Ml Inj IV Q3H PRN Pain , Severe (7-10) Hydrophilic Ointment 1 applic 03/12/21 20:02 Lip Therapy Vaseline TP Q2HR PRN Dry Lips Ceftriaxone Sodium 2 gm in 100 mls @ 200 mls/hr 03/13/21 10:00 03/13/21 18:35 Rocephin/Ns 2 Gm/100 Ml IV 200 mls/hr Q24HR STEPHEN Administration Protocol Azithromycin 500 mg in 250 mls @ 250 mls/hr 03/13/21 10:00 03/13/21 22:27 Zithromax/Ns IV Not Given Q24HR [facility] Protocol REMDESIVIR 100 mg/ Sodium 250 mls @ 500 mls/hr 03/14/21 21:00 Chloride IV 03/17/21 21:29 Q24HR@2100 [facility] Fentanyl Citrate 2,000 mcg in 100 mls @ 3.402 mls/hr 03/13/21 17:00 Fentanyl Drip Premix IV TITR STEPHEN Protocol 1 MCG/KG/HR NORepinephrine/NS 8 MG-250 ML 8 mg in 250 mls @ 3.75 mls/hr 03/13/21 21:00 03/14/21 00:51 Norepinephrine/Ns 8 Mg-250 Ml (Double Conc) IV 30 mcg/min TITRATE STEPHEN 56.25 mls/hr Administration Protocol 2 MCG/MIN Sodium Bicarbonate 150 meq/ 1,150 mls @ 150 mls/hr 03/14/21 07:00 03/14/21 07:42 Dextrose IV 150 mls/hr DIRECT STEPHEN Administration Dextrose/Sodium Chloride 1,000 mls @ 125 mls/hr 03/14/21 09:00 D5ns IV DIRECT STEPHEN Morphine Sulfate 2 mg 03/12/21 21:29 Morphine 2 Mg/1 Ml Inj IV Q4H PRN Pain, Moderate (4-6) Multi-Ingred Cream/Lotion/Oil/Oint 1 applic 03/12/21 20:02 Mineral Oil/Petrolatum, White Ophth Oint 3.5 Gm OU Q4HR PRN Dry Eye(s) Ondansetron HCl 4 mg 03/12/21 21:29 Ondansetron 4 Mg/2 Ml Inj IV Q8H PRN Nausea And Vomiting Senna/Docusate Sodium 1 tab 03/12/21 22:00 03/13/21 23:51 Sennosides/Docusate Sodium 8.6/50 Mg Tab FEEDTUBE Not Given BID STEPHEN Sodium Chloride 10 ml 03/12/21 22:00 03/13/21 23:51 Sodium Chloride 0.9% 10 Ml Flush Syringe IV 10 ml BID STEPHEN Administration Sodium Chloride 10 ml 03/12/21 21:29 Sodium Chloride 0.9% 10 Ml Flush Syringe IV PRN PRN LINE FLUSH Sodium Chloride 50 ml 03/13/21 15:15 03/13/21 18:35 Sodium Chloride 0.9% 50 Ml Ivpb IV 03/17/21 21:01 50 ml Q24HR@2100 STEPHEN Administration Spironolactone 50 mg 03/13/21 10:00 03/13/21 10:00 Spironolactone 50 Mg Tab PO Not Given QDAY STEPHEN Thiamine HCl 100 mg 03/13/21 10:00 03/13/21 10:00 Thiamine 100 Mg Tab PO Not Given QDAY STEPHEN Nutrition/Malnutrition Assess - Dietary Evaluation Nutrition/Malnutrition Findings: Nutrition Notes Start: 03/13/21 17:20 Freq: Status: Active Protocol: Document 03/13/21 17:20 GERALD (Rec: 03/13/21 17:54 GERALD [id number]) Nutrition Notes Need for Assessment generated from: MD Order Initial or Follow up Brief Note Current Diagnosis Sepsis,Respiratory Failure Other Pertinent Diagnosis COVID-19, Bilateral Pneumonia, Hypoglycemia, Anemia/Cirrosis , Ascites. Current Diet NPO (since 03/12 21:30). TF- Vital AF 1.2 Fran @ 56 ml/hr ( since D 03/13). Labs/Tests 03/13: CO2 16, BUN 35, Crea 1. 5, Glu 58, Ca 7.8. Pertinent Medications 03/13: D5ns 1000 ml@ 75 ml/hr, Folic acid, Thiamine, others nutritionally unremarkable. Height 5 ft 11 in Weight 68.03 kg [place] Body Weight (kg) 78.18 BMI 20.9 Weight change and time frame None reported at admission. Weight Status Appropriate Subjective/Other Information RD consult for evaluation of nutritional intake. Pt on mechanical ventilation and sedated. Pt currently on NPO. TF recommended and ordered. Percent of energy/protein needs met: Prescribed Vital AF 1.2 Fran @ 56 ml/hr provides for energy/ protein needs (1,600 Kcal/100 g) during LOS, 100% Kcal; 100% AA. Burn Absent Trauma Absent GI Symptoms None Food Allergy No Skin Integrity/Comment Clear, warm, dry. Current % PO Other Minimum of two criteria No #1 Nutrition Diagnosis Inadequate oral intake Etiology Pt on mechanical ventilation. As Evidenced by Signs and Symptoms Pt on NPO. Is patient on ventilator? Yes Is Patient Ambulatory and/or Out of Bed No REE-([facility]-confined to bed) 1790.328 Kcal/Kg value to use for calculation 24 Approximate Energy Requirements Using 1633 kcal/Kg Calculation Used for Recommendations Kcal/kg Additional Notes Protein: 1.2-2 g/Kg; 82-136 g/ day. Fluids: 1 ml/Kcal, or as per MD. Nutrition Intervention Nutrition Support: Start Vital AF 1.2 Fran @ 56 ml /hr. Flush: 90 ml water Q 4 hr, or as per MD. Kcal 1,600 Protein (gm) 100 Carbohydrates (gm) 148 Fat (gm) 72 Fluid (mL) 1,081 Fiber (gm) 7 % RDI: 100% Kcal; 100% AA. Goal #1 Provide at least 75% of energy /protein needs through Enteral Feeding during LOS. Follow-Up By: 03/15/21 Additional Comments Continue monitoring TF tolerance and BM. F/U to check TF tolerance.
[2021-03-14] MEDS ORDERED: D5W/0.9% NACL 1,000 ML IV SCH (09:00)
[2021-03-14] MEDS: IPRATROPIUM/ALBUTEROL SULFATE 3 ML AMPUL.NEB IH SCH ×3 (09:13→21:00)
[2021-03-14 09:40] LABS: Band Neutrophils # (Manual) 2.7 K/mm3; Basophils % (Manual) 0 % (0.0-1.8); Eosinophils % (Manual) 0 % (0.0-4.3); Myelocytes # (Manual) 0.3 K/mm3; Total Cells Counted 100
[2021-03-14 09:51] LABS: Hypochromasia 2+
[2021-03-14 09:52] LABS: Anisocytosis 2+; Large Platelets Few; Toxic Granulation 1+
[2021-03-14 09:53] LABS: Burr Cells 1+; Platelet Estimate Consistent w Auto; Target Cells 1+
[2021-03-14] MEDS: cefTRIAXone/NS 2 GM/100 ML 2 GM/100 ML BAG IV SCH (10:35)
[2021-03-14] MEDS: AZITHROMYCIN/NS 500 MG/250 ML 500 MG/250 ML BAG IV SCH (10:35)
[2021-03-14] MEDS: dexAMETHasone 4 MG/ML VIAL IV SCH (10:43)
[2021-03-14] MEDS: SENNOSIDES/DOCUSATE SODIUM 8.6/50 MG TAB FEEDTUBE SCH ×2 (11:05→23:03)
[2021-03-14] MEDS: THIAMINE 100 MG TAB PO SCH (11:05)
[2021-03-14] MEDS: FOLIC ACID 1 MG TAB PO SCH (11:05)
[2021-03-14] MEDS: FERROUS SULFATE 300 MG (60MG Elemental Iron) / 5 mL ORAL LIQD PO SCH ×2 (11:05→23:05)
--- NOTE | 2021-03-14 11:12 | Ultrasound Report ---
ULTRASOUND ABDOMEN, LIMITED INDICATION / CLINICAL INFORMATION: ascites. COMPARISON: CT 02/28/2021 FINDINGS: Moderate to large volume ascites throughout all 4 quadrants of the abdomen. IMPRESSION: 1. Moderate to large volume ascites. Signer Name: Jayesh Duran MD Signed: 03/14/2021 11:08 AM Workstation Name: [id number]
[2021-03-14] MEDS: D5W/0.9% NACL 1,000 ML IV SCH ×2 (11:24→23:20)
[2021-03-14 11:49] LABS: INR 3.85 (0.87-1.13)
--- NOTE | 2021-03-14 11:53 | XRay Report ---
XR chest 1V ap INDICATION / CLINICAL INFORMATION: check placement. COMPARISON: Radiograph from earlier same day. FINDINGS: SUPPORT DEVICES: Enteric catheter tip and side-port project in the stomach. Right upper extremity PIC C and endotracheal tube are stable. HEART /PULMONARY VASCULATURE: Unchanged. LUNGS / PLEURA: Lung parenchyma is not significantly changed. No pneumothorax. IMPRESSION: Gastric placement of enteric catheter. Otherwise stable exam. Signer Name: Mark Dougherty MD Signed: 03/14/2021 11:49 AM Workstation Name: [id number]
--- NOTE | 2021-03-14 12:14 | Progress Note ---
Assessment and Plan Cultures: SARS CoV2 PCR: Positive as outpatient 03/12/2021 blood culture: no growth A/P: 65-year-old male with hepatic cirrhosis, chronic hepatitis C, anemia, ascites, recent hospitalization due to worsening ascites, underwent paracentesis with removal of 13 L of fluid, now with: #Septic shock: from COVID, also rule out SBP. Initial labs showed significant leukocytosis of 15.4, D-dimer greater than 10K, procalcitonin 8.67, CRP 10.8, LDH 287, ferritin 414, ammonia 72. Ferritin worsened to 6545, AST 4019, ALT 501 #Bilateral pneumonia: secondary to COVID-19 #Right pleural effusion, ascites #Acute hypoxic respiratory failure: on the vent #Hepatic cirrhosis with ascites #Chronic hepatitis C: genotype 1a. #Transaminitis with significant worsening Recs: -Ferritin worsened to 6545, AST 4019, ALT 501, will d/c remdesivir -continue IV/PO Dexamethasone x 10 days -Not a candidate for Actemra -prophylactic anticoagulation based on d-dimer per hospital protocol -continue empiric abx: ceftriaxone. Added IV Vancomycin. Azithromycin discontinued -trend ferritin, d-dimer, CRP every 2-3 days -consider paracentesis, please send fluid for cell count and culture -extremely poor prognosis Jhony Nickerson MD, FACP, [facility] ([facility]) O: [phone] F: [phone] Subjective Date of service: 03/14/21 Interval history: No fever. Remains on the vent, sedated. Hypotensive yesterday, got started on pressors. Objective - Exam Narrative Exam: Physical Exam (reviewed in chart to minimize risk of transmission) Constitutional: deferred Head, Ears, Nose: deferred Eyes: deferred Neck: deferred Oral: deferred Cardiovascular: deferred Respiratory: deferred GI: deferred Musculoskeletal: deferred Skin: deferred Hem/Lymphatic: deferred Psych: deferred Neurological: deferred - Constitutional Vitals: Vital Signs Temp Pulse Resp BP Pulse Ox 98.5 F 78 20 113/73 94 03/14/21 00:30 03/14/21 11:32 03/14/21 11:32 03/14/21 11:32 03/14/21 11:32 Temperature -Last 24 Hours Temperature 98.5 F - Labs CBC & Chem 7: 03/14/21 05:34 03/14/21 07:18 Labs: Abnormal lab results 03/13/21 03/13/21 03/13/21 Range/Units 14:32 14:32 Unknown WBC 17.3 H (4.5-11.0) K/mm3 Hgb 8.8 L (11.8-15.2) gm/dl Hct 31.0 L (35.5-45.6) % MCV 75 L (84-94) fl MCH 22 L (28-32) pg MCHC 29 L (32-34) % RDW 27.5 H (13.2-15.2) % Seg Neuts % (Manual) 91.0 H (40.0-70.0) % Lymphocytes % (Manual) 0 L (13.4-35.0) % Nucleated RBC % 2.0 H (0.0-0.9) % Seg Neutrophils # Man 15.7 H (1.8-7.7) K/mm3 Lymphocytes # (Manual) 0.0 L (1.2-5.4) K/mm3 Monocytes # (Manual) 0.9 H (0.0-0.8) K/mm3 PT (12.2-14.9) Sec. INR (0.87-1.13) D-Dimer (0-234) ng/mlDDU ABG pH (7.320-7.450) POC ABG pCO2 (32.0-48.0) mmHg ABG Hemoglobin (12.0-17.5) ABG Sodium (136.0-145.0) mmol/L ABG Potassium (3.40-4.50) mmol/L Potassium (3.6-5.0) mmol/L Carbon Dioxide 16 L (22-30) mmol/L BUN 35 H (9-20) mg/dL Creatinine 1.5 H (0.8-1.3) mg/dL Glucose 58 L (75-100) mg/dL POC Glucose (70-105) mg/dL Calcium 7.8 L (8.4-10.2) mg/dL Ferritin (30.0-300.0) ng/mL Total Bilirubin 1.40 H (0.1-1.2) mg/dL AST 82 H (5-40) units/L ALT (7-56) units/L Alkaline Phosphatase 163 H (35-129) units/L Lactate Dehydrogenase (91-180) units/L C-Reactive Protein (0.00-1.30) mg/dL Total Protein 6.2 L (6.3-8.2) g/dL Albumin 1.7 L (3.9-5) g/dL Arterial Blood Ionized Calcium (4.6-5.3) mg/dL Coronavirus (PCR) Positive A (Negative) 03/14/21 03/14/21 03/14/21 Range/Units 05:00 05:34 05:34 WBC 16.9 H (4.5-11.0) K/mm3 Hgb 7.9 L (11.8-15.2) gm/dl Hct 29.4 L (35.5-45.6) % MCV 80 L (84-94) fl MCH 22 L (28-32) pg MCHC 27 L (32-34) % RDW 28.6 H (13.2-15.2) % Seg Neuts % (Manual) 72.0 H (40.0-70.0) % Lymphocytes % (Manual) 5.0 L (13.4-35.0) % Nucleated RBC % 7.0 H (0.0-0.9) % Seg Neutrophils # Man 12.2 H (1.8-7.7) K/mm3 Lymphocytes # (Manual) 0.8 L (1.2-5.4) K/mm3 Monocytes # (Manual) (0.0-0.8) K/mm3 PT (12.2-14.9) Sec. INR (0.87-1.13) D-Dimer > 37358 H (0-234) ng/mlDDU ABG pH 7.167 L (7.320-7.450) POC ABG pCO2 24.6 L (32.0-48.0) mmHg ABG Hemoglobin 9.3 L (12.0-17.5) ABG Sodium 135.2 L (136.0-145.0) mmol/L ABG Potassium 5.5 H (3.40-4.50) mmol/L Potassium (3.6-5.0) mmol/L Carbon Dioxide (22-30) mmol/L BUN (9-20) mg/dL Creatinine (0.8-1.3) mg/dL Glucose (75-100) mg/dL POC Glucose (70-105) mg/dL Calcium (8.4-10.2) mg/dL Ferritin (30.0-300.0) ng/mL Total Bilirubin (0.1-1.2) mg/dL AST (5-40) units/L ALT (7-56) units/L Alkaline Phosphatase (35-129) units/L Lactate Dehydrogenase (91-180) units/L C-Reactive Protein (0.00-1.30) mg/dL Total Protein (6.3-8.2) g/dL Albumin (3.9-5) g/dL Arterial Blood Ionized Calcium 4.3 L (4.6-5.3) mg/dL Coronavirus (PCR) (Negative) 03/14/21 03/14/21 03/14/21 Range/Units 05:34 05:34 07:16 WBC (4.5-11.0) K/mm3 Hgb (11.8-15.2) gm/dl Hct (35.5-45.6) % MCV (84-94) fl MCH (28-32) pg MCHC (32-34) % RDW (13.2-15.2) % Seg Neuts % (Manual) (40.0-70.0) % Lymphocytes % (Manual) (13.4-35.0) % Nucleated RBC % (0.0-0.9) % Seg Neutrophils # Man (1.8-7.7) K/mm3 Lymphocytes # (Manual) (1.2-5.4) K/mm3 Monocytes # (Manual) (0.0-0.8) K/mm3 PT (12.2-14.9) Sec. INR (0.87-1.13) D-Dimer (0-234) ng/mlDDU ABG pH (7.320-7.450) POC ABG pCO2 (32.0-48.0) mmHg ABG Hemoglobin (12.0-17.5) ABG Sodium (136.0-145.0) mmol/L ABG Potassium (3.40-4.50) mmol/L Potassium 5.7 H D (3.6-5.0) mmol/L Carbon Dioxide (22-30) mmol/L BUN 37 H (9-20) mg/dL Creatinine (0.8-1.3) mg/dL Glucose (75-100) mg/dL POC Glucose 17 L (70-105) mg/dL Calcium 7.9 L (8.4-10.2) mg/dL Ferritin 6545.0 H (30.0-300.0) ng/mL Total Bilirubin 1.80 H (0.1-1.2) mg/dL AST 4019 H (5-40) units/L ALT 501 H (7-56) units/L Alkaline Phosphatase (35-129) units/L Lactate Dehydrogenase 2367 H (91-180) units/L C-Reactive Protein 8.40 H (0.00-1.30) mg/dL Total Protein 5.8 L (6.3-8.2) g/dL Albumin 1.8 L (3.9-5) g/dL Arterial Blood Ionized Calcium (4.6-5.3) mg/dL Coronavirus (PCR) (Negative) 03/14/21 03/14/21 03/14/21 Range/Units 07:18 08:08 08:59 WBC (4.5-11.0) K/mm3 Hgb (11.8-15.2) gm/dl Hct (35.5-45.6) % MCV (84-94) fl MCH (28-32) pg MCHC (32-34) % RDW (13.2-15.2) % Seg Neuts % (Manual) (40.0-70.0) % Lymphocytes % (Manual) (13.4-35.0) % Nucleated RBC % (0.0-0.9) % Seg Neutrophils # Man (1.8-7.7) K/mm3 Lymphocytes # (Manual) (1.2-5.4) K/mm3 Monocytes # (Manual) (0.0-0.8) K/mm3 PT (12.2-14.9) Sec. INR (0.87-1.13) D-Dimer (0-234) ng/mlDDU ABG pH (7.320-7.450) POC ABG pCO2 (32.0-48.0) mmHg ABG Hemoglobin (12.0-17.5) ABG Sodium (136.0-145.0) mmol/L ABG Potassium (3.40-4.50) mmol/L Potassium 5.4 H (3.6-5.0) mmol/L Carbon Dioxide 12 L (22-30) mmol/L BUN 38 H (9-20) mg/dL Creatinine 2.5 H D (0.8-1.3) mg/dL Glucose 29 L* (75-100) mg/dL POC Glucose 11 L 144 H (70-105) mg/dL Calcium 7.6 L (8.4-10.2) mg/dL Ferritin (30.0-300.0) ng/mL Total Bilirubin (0.1-1.2) mg/dL AST (5-40) units/L ALT (7-56) units/L Alkaline Phosphatase (35-129) units/L Lactate Dehydrogenase 2218 H (91-180) units/L C-Reactive Protein 8.30 H (0.00-1.30) mg/dL Total Protein (6.3-8.2) g/dL Albumin (3.9-5) g/dL Arterial Blood Ionized Calcium (4.6-5.3) mg/dL Coronavirus (PCR) (Negative) 03/14/21 Range/Units 10:06 WBC (4.5-11.0) K/mm3 Hgb (11.8-15.2) gm/dl Hct (35.5-45.6) % MCV (84-94) fl MCH (28-32) pg MCHC (32-34) % RDW (13.2-15.2) % Seg Neuts % (Manual) (40.0-70.0) % Lymphocytes % (Manual) (13.4-35.0) % Nucleated RBC % (0.0-0.9) % Seg Neutrophils # Man (1.8-7.7) K/mm3 Lymphocytes # (Manual) (1.2-5.4) K/mm3 Monocytes # (Manual) (0.0-0.8) K/mm3 PT 40.7 H (12.2-14.9) Sec. INR 3.85 H (0.87-1.13) D-Dimer (0-234) ng/mlDDU ABG pH (7.320-7.450) POC ABG pCO2 (32.0-48.0) mmHg ABG Hemoglobin (12.0-17.5) ABG Sodium (136.0-145.0) mmol/L ABG Potassium (3.40-4.50) mmol/L Potassium (3.6-5.0) mmol/L Carbon Dioxide (22-30) mmol/L BUN (9-20) mg/dL Creatinine (0.8-1.3) mg/dL Glucose (75-100) mg/dL POC Glucose (70-105) mg/dL Calcium (8.4-10.2) mg/dL Ferritin (30.0-300.0) ng/mL Total Bilirubin (0.1-1.2) mg/dL AST (5-40) units/L ALT (7-56) units/L Alkaline Phosphatase (35-129) units/L Lactate Dehydrogenase (91-180) units/L C-Reactive Protein (0.00-1.30) mg/dL Total Protein (6.3-8.2) g/dL Albumin (3.9-5) g/dL Arterial Blood Ionized Calcium (4.6-5.3) mg/dL Coronavirus (PCR) (Negative)
[2021-03-14] MEDS ORDERED: VANCOMYCIN 1,000 MG in SODIUM CHLORIDE 0.9% 500 ML 500 ML IV ONE (12:15)
[2021-03-14] MEDS ORDERED: VANCOMYCIN 1,250 MG in SODIUM CHLORIDE 0.9% 250ML 250 ML IV ONE (13:00)
[2021-03-14] MEDS ORDERED: VANCOMYCIN PHARMACY TO DOSE IV SCH (13:00)
[2021-03-14 13:07] LABS: Hepatitis C Virus Antibody Reactive (NonReactive)
[2021-03-14 13:16] LABS: Hepatitis B Surface Antigen Nonreactive (Negative)
--- NOTE | 2021-03-14 14:12 | Progress Note ---
Assessment and Plan 65 y/o male with acute respiratory failure most likely secondary to COVID plus right sided effusion secondary to large volume ascities from liver cirrhosis. 03/14/21: Started patient on bicarb drip and gave a few amps of sodium bicarb. Added vasopressin therapy. Continue Steroids and Remdesivir. Off sedation. Guarded prognosis. 1. Wean Vent settings and sedation as tolerated 2. Remdesivir and Steroids, Pending CRP, actemra 3. Hold on proning now that intubated, not able to paralyze and adequately sedate in the ED 4. Negative fluid balance if possible 5. Needs paracentesis, this should take care of pleural effusion as well. 6. Guarded prognosis. CCT 31 minutes. Subjective Date of service: 03/14/21 Interval history: Worsening acidosis today. Now hypotensive on pressors. Weaned down to 40% wit good ABG with exception of pH. Currently not on sedation. Objective Vital Signs - 12hr 03/14/21 03/14/21 03/14/21 02:17 02:31 02:45 Pulse Rate 125 H 127 H 130 H Pulse Rate [ Bilateral Throughout] Respiratory 18 33 H 35 H Rate Respiratory Rate [Bilateral Throughout] Blood Pressure 98/60 110/56 Blood Pressure [Left] O2 Sat by Pulse Oximetry 03/14/21 03/14/21 03/14/21 03:00 03:01 03:15 Pulse Rate 129 H 126 H Pulse Rate [ Bilateral Throughout] Respiratory 35 H 34 H Rate Respiratory Rate [Bilateral Throughout] Blood Pressure 100/61 91/27 Blood Pressure [Left] O2 Sat by Pulse 100 Oximetry 03/14/21 03/14/21 03/14/21 03:25 03:31 03:45 Pulse Rate 125 H 124 H 126 H Pulse Rate [ Bilateral Throughout] Respiratory 35 H 33 H Rate Respiratory Rate [Bilateral Throughout] Blood Pressure 96/25 96/36 Blood Pressure [Left] O2 Sat by Pulse Oximetry 03/14/21 03/14/21 03/14/21 04:01 04:15 04:30 Pulse Rate 123 H 123 H 129 H Pulse Rate [ Bilateral Throughout] Respiratory 32 H 31 H 33 H Rate Respiratory Rate [Bilateral Throughout] Blood Pressure 104/54 103/68 74/53 Blood Pressure [Left] O2 Sat by Pulse Oximetry 03/14/21 03/14/21 03/14/21 04:45 04:58 05:00 Pulse Rate 125 H 126 H Pulse Rate [ Bilateral Throughout] Respiratory 32 H Rate Respiratory Rate [Bilateral Throughout] Blood Pressure 91/27 Blood Pressure [Left] O2 Sat by Pulse 0 L 100 Oximetry 03/14/21 03/14/21 03/14/21 05:01 05:15 05:31 Pulse Rate 118 H 119 H 118 H Pulse Rate [ Bilateral Throughout] Respiratory 31 H 33 H 31 H Rate Respiratory Rate [Bilateral Throughout] Blood Pressure 85/37 97/28 Blood Pressure [Left] O2 Sat by Pulse Oximetry 03/14/21 03/14/21 03/14/21 05:45 06:01 06:15 Pulse Rate 118 H 117 H 117 H Pulse Rate [ Bilateral Throughout] Respiratory 32 H 32 H 31 H Rate Respiratory Rate [Bilateral Throughout] Blood Pressure 112/16 Blood Pressure [Left] O2 Sat by Pulse Oximetry 03/14/21 03/14/21 03/14/21 06:31 06:45 07:01 Pulse Rate 117 H 117 H 115 H Pulse Rate [ Bilateral Throughout] Respiratory 31 H 31 H 33 H Rate Respiratory Rate [Bilateral Throughout] Blood Pressure 111/49 99/59 115/70 Blood Pressure [Left] O2 Sat by Pulse Oximetry 03/14/21 03/14/21 03/14/21 07:15 07:30 07:45 Pulse Rate 114 H 113 H 114 H Pulse Rate [ Bilateral Throughout] Respiratory 36 H 33 H 37 H Rate Respiratory Rate [Bilateral Throughout] Blood Pressure 90/56 102/52 121/63 Blood Pressure [Left] O2 Sat by Pulse Oximetry 03/14/21 03/14/21 03/14/21 08:00 08:01 08:15 Pulse Rate 112 H 115 H 114 H Pulse Rate [ Bilateral Throughout] Respiratory 36 H 35 H Rate Respiratory Rate [Bilateral Throughout] Blood Pressure 108/32 119/60 119/78 Blood Pressure [Left] O2 Sat by Pulse 100 Oximetry 03/14/21 03/14/21 03/14/21 08:31 08:45 09:01 Pulse Rate 113 H 114 H 115 H Pulse Rate [ Bilateral Throughout] Respiratory 33 H 34 H 34 H Rate Respiratory Rate [Bilateral Throughout] Blood Pressure 108/32 114/83 119/20 Blood Pressure [Left] O2 Sat by Pulse 100 80 L Oximetry 03/14/21 03/14/21 03/14/21 09:15 09:31 09:45 Pulse Rate 115 H 113 H 113 H Pulse Rate [ Bilateral Throughout] Respiratory 35 H 30 H 34 H Rate Respiratory Rate [Bilateral Throughout] Blood Pressure 125/73 130/70 138/83 Blood Pressure [Left] O2 Sat by Pulse 96 73 L 62 L Oximetry 03/14/21 03/14/21 03/14/21 10:01 10:15 10:31 Pulse Rate 113 H 114 H 113 H Pulse Rate [ Bilateral Throughout] Respiratory 32 H 32 H 32 H Rate Respiratory Rate [Bilateral Throughout] Blood Pressure 121/46 131/81 131/81 Blood Pressure [Left] O2 Sat by Pulse 69 L 66 L 60 L Oximetry 03/14/21 03/14/21 03/14/21 10:45 11:01 11:15 Pulse Rate 112 H 112 H 108 H Pulse Rate [ Bilateral Throughout] Respiratory 31 H 33 H 32 H Rate Respiratory Rate [Bilateral Throughout] Blood Pressure 131/81 131/81 131/81 Blood Pressure [Left] O2 Sat by Pulse 57 L 71 L 61 L Oximetry 03/14/21 03/14/21 03/14/21 11:31 11:32 11:45 Pulse Rate 107 H 78 105 H Pulse Rate [ Bilateral Throughout] Respiratory 32 H 20 30 H Rate Respiratory Rate [Bilateral Throughout] Blood Pressure 113/73 112/44 Blood Pressure 113/73 [Left] O2 Sat by Pulse 75 L 94 66 L Oximetry 03/14/21 03/14/21 03/14/21 12:00 12:01 12:15 Pulse Rate 103 H 104 H 103 H Pulse Rate [ Bilateral Throughout] Respiratory 33 H 32 H Rate Respiratory Rate [Bilateral Throughout] Blood Pressure 86/34 129/59 126/72 Blood Pressure [Left] O2 Sat by Pulse 97 74 L 65 L Oximetry 03/14/21 03/14/21 03/14/21 12:31 12:45 13:01 Pulse Rate 103 H 103 H 100 H Pulse Rate [ 100 H Bilateral Throughout] Respiratory 33 H 35 H 29 H Rate Respiratory 34 H Rate [Bilateral Throughout] Blood Pressure 91/54 86/34 80/50 Blood Pressure [Left] O2 Sat by Pulse 66 L 90 94 Oximetry 03/14/21 13:15 Pulse Rate 93 H Pulse Rate [ Bilateral Throughout] Respiratory 28 H Rate Respiratory Rate [Bilateral Throughout] Blood Pressure 97/62 Blood Pressure [Left] O2 Sat by Pulse 95 Oximetry CBC and BMP: 03/14/21 05:34 03/14/21 07:18 ABG, PT/INR, D-dimer: ABG ABG pH 7.167 (7.320-7.450) L 03/14/21 05:00 POC ABG pCO2 24.6 mmHg (32.0-48.0) L 03/14/21 05:00 POC ABG pO2 96.2 mmHg (83-108) 03/14/21 05:00 POC ABG HCO3 8.7 03/14/21 05:00 ABG O2 Saturation 95.6 (0-100) 03/14/21 05:00 PT/INR, D-dimer PT 40.7 Sec. (12.2-14.9) H 03/14/21 10:06 INR 3.85 (0.87-1.13) H 03/14/21 10:06 D-Dimer > 08077 ng/mlDDU (0-234) H 03/14/21 05:34 Abnormal lab findings: Abnormal Labs 03/12/21 03/12/21 03/12/21 18:17 18:54 18:54 WBC 15.4 H Hgb 9.0 L Hct 33.2 L MCV 77 L MCH 21 L MCHC 27 L RDW 28.1 H Seg Neuts % (Manual) 86.0 H Lymphocytes % (Manual) 4.0 L Monocytes % (Manual) 8.0 H Nucleated RBC % Seg Neutrophils # Man 13.2 H Lymphocytes # (Manual) 0.6 L Monocytes # (Manual) 1.2 H PT INR APTT D-Dimer ABG pH POC ABG pCO2 POC ABG pO2 ABG Hemoglobin ABG Oxyhemoglobin ABG Sodium ABG Potassium ABG Glucose Sodium 136 L Potassium 5.4 H Carbon Dioxide 16 L BUN 32 H Creatinine Glucose 104 H POC Glucose 58 L Calcium Ferritin Total Bilirubin 1.40 H AST 71 H ALT Alkaline Phosphatase 164 H Ammonia Lactate Dehydrogenase C-Reactive Protein NT-Pro-B Natriuret Pep Total Protein Albumin 2.2 L Arterial Blood Glucose Arterial Blood Ionized Calcium Coronavirus (PCR) Hepatitis C Antibody 03/12/21 03/12/21 03/12/21 18:54 18:54 18:54 WBC Hgb Hct MCV MCH MCHC RDW Seg Neuts % (Manual) Lymphocytes % (Manual) Monocytes % (Manual) Nucleated RBC % Seg Neutrophils # Man Lymphocytes # (Manual) Monocytes # (Manual) PT 17.6 H INR 1.31 H APTT 38.7 H D-Dimer > 45125 H ABG pH POC ABG pCO2 POC ABG pO2 ABG Hemoglobin ABG Oxyhemoglobin ABG Sodium ABG Potassium ABG Glucose Sodium Potassium Carbon Dioxide BUN Creatinine Glucose POC Glucose Calcium Ferritin Total Bilirubin AST ALT Alkaline Phosphatase Ammonia 72.0 H Lactate Dehydrogenase C-Reactive Protein NT-Pro-B Natriuret Pep 1838 H Total Protein Albumin Arterial Blood Glucose Arterial Blood Ionized Calcium Coronavirus (PCR) Hepatitis C Antibody 03/12/21 03/12/21 03/12/21 18:54 19:04 19:21 WBC Hgb Hct MCV MCH MCHC RDW Seg Neuts % (Manual) Lymphocytes % (Manual) Monocytes % (Manual) Nucleated RBC % Seg Neutrophils # Man Lymphocytes # (Manual) Monocytes # (Manual) PT INR APTT D-Dimer ABG pH POC ABG pCO2 POC ABG pO2 ABG Hemoglobin ABG Oxyhemoglobin ABG Sodium ABG Potassium ABG Glucose Sodium Potassium Carbon Dioxide BUN Creatinine Glucose POC Glucose 30 L Calcium Ferritin 414.7 H Total Bilirubin AST ALT Alkaline Phosphatase Ammonia Lactate Dehydrogenase 287 H C-Reactive Protein 10.80 H NT-Pro-B Natriuret Pep Total Protein Albumin Arterial Blood Glucose Arterial Blood Ionized Calcium Coronavirus (PCR) Hepatitis C Antibody 03/12/21 03/12/21 03/13/21 19:50 20:14 00:05 WBC Hgb Hct MCV MCH MCHC RDW Seg Neuts % (Manual) Lymphocytes % (Manual) Monocytes % (Manual) Nucleated RBC % Seg Neutrophils # Man Lymphocytes # (Manual) Monocytes # (Manual) PT INR APTT D-Dimer ABG pH POC ABG pCO2 POC ABG pO2 314.9 H ABG Hemoglobin ABG Oxyhemoglobin 98.9 H ABG Sodium ABG Potassium ABG Glucose 229 H Sodium Potassium Carbon Dioxide BUN Creatinine Glucose POC Glucose 24 L 371 H Calcium Ferritin Total Bilirubin AST ALT Alkaline Phosphatase Ammonia Lactate Dehydrogenase C-Reactive Protein NT-Pro-B Natriuret Pep Total Protein Albumin Arterial Blood Glucose 229 H Arterial Blood Ionized Calcium Coronavirus (PCR) Hepatitis C Antibody 03/13/21 03/13/21 03/13/21 02:29 14:32 14:32 WBC 17.3 H Hgb 8.8 L Hct 31.0 L MCV 75 L MCH 22 L MCHC 29 L RDW 27.5 H Seg Neuts % (Manual) 91.0 H Lymphocytes % (Manual) 0 L Monocytes % (Manual) Nucleated RBC % 2.0 H Seg Neutrophils # Man 15.7 H Lymphocytes # (Manual) 0.0 L Monocytes # (Manual) 0.9 H PT INR APTT D-Dimer ABG pH POC ABG pCO2 POC ABG pO2 ABG Hemoglobin ABG Oxyhemoglobin ABG Sodium ABG Potassium ABG Glucose Sodium Potassium Carbon Dioxide 16 L BUN 35 H Creatinine 1.5 H Glucose 58 L POC Glucose 128 H Calcium 7.8 L Ferritin Total Bilirubin 1.40 H AST 82 H ALT Alkaline Phosphatase 163 H Ammonia Lactate Dehydrogenase C-Reactive Protein NT-Pro-B Natriuret Pep Total Protein 6.2 L Albumin 1.7 L Arterial Blood Glucose Arterial Blood Ionized Calcium Coronavirus (PCR) Hepatitis C Antibody 03/13/21 03/14/21 03/14/21 Unknown 05:00 05:34 WBC 16.9 H Hgb 7.9 L Hct 29.4 L MCV 80 L MCH 22 L MCHC 27 L RDW 28.6 H Seg Neuts % (Manual) 72.0 H Lymphocytes % (Manual) 5.0 L Monocytes % (Manual) Nucleated RBC % 7.0 H Seg Neutrophils # Man 12.2 H Lymphocytes # (Manual) 0.8 L Monocytes # (Manual) PT INR APTT D-Dimer ABG pH 7.167 L POC ABG pCO2 24.6 L POC ABG pO2 ABG Hemoglobin 9.3 L ABG Oxyhemoglobin ABG Sodium 135.2 L ABG Potassium 5.5 H ABG Glucose Sodium Potassium Carbon Dioxide BUN Creatinine Glucose POC Glucose Calcium Ferritin Total Bilirubin AST ALT Alkaline Phosphatase Ammonia Lactate Dehydrogenase C-Reactive Protein NT-Pro-B Natriuret Pep Total Protein Albumin Arterial Blood Glucose Arterial Blood Ionized Calcium 4.3 L Coronavirus (PCR) Positive A Hepatitis C Antibody 03/14/21 03/14/21 03/14/21 05:34 05:34 05:34 WBC Hgb Hct MCV MCH MCHC RDW Seg Neuts % (Manual) Lymphocytes % (Manual) Monocytes % (Manual) Nucleated RBC % Seg Neutrophils # Man Lymphocytes # (Manual) Monocytes # (Manual) PT INR APTT D-Dimer > 99509 H ABG pH POC ABG pCO2 POC ABG pO2 ABG Hemoglobin ABG Oxyhemoglobin ABG Sodium ABG Potassium ABG Glucose Sodium Potassium 5.7 H D Carbon Dioxide BUN 37 H Creatinine Glucose POC Glucose Calcium 7.9 L Ferritin 6545.0 H Total Bilirubin 1.80 H AST 4019 H ALT 501 H Alkaline Phosphatase Ammonia Lactate Dehydrogenase 2367 H C-Reactive Protein 8.40 H NT-Pro-B Natriuret Pep Total Protein 5.8 L Albumin 1.8 L Arterial Blood Glucose Arterial Blood Ionized Calcium Coronavirus (PCR) Hepatitis C Antibody 03/14/21 03/14/21 03/14/21 05:34 07:16 07:18 WBC Hgb Hct MCV MCH MCHC RDW Seg Neuts % (Manual) Lymphocytes % (Manual) Monocytes % (Manual) Nucleated RBC % Seg Neutrophils # Man Lymphocytes # (Manual) Monocytes # (Manual) PT INR APTT D-Dimer ABG pH POC ABG pCO2 POC ABG pO2 ABG Hemoglobin ABG Oxyhemoglobin ABG Sodium ABG Potassium ABG Glucose Sodium Potassium 5.4 H Carbon Dioxide 12 L BUN 38 H Creatinine 2.5 H D Glucose 29 L* POC Glucose 17 L Calcium 7.6 L Ferritin Total Bilirubin AST ALT Alkaline Phosphatase Ammonia Lactate Dehydrogenase 2218 H C-Reactive Protein 8.30 H NT-Pro-B Natriuret Pep Total Protein Albumin Arterial Blood Glucose Arterial Blood Ionized Calcium Coronavirus (PCR) Hepatitis C Antibody Reactive A 03/14/21 03/14/21 03/14/21 08:08 08:59 10:06 WBC Hgb Hct MCV MCH MCHC RDW Seg Neuts % (Manual) Lymphocytes % (Manual) Monocytes % (Manual) Nucleated RBC % Seg Neutrophils # Man Lymphocytes # (Manual) Monocytes # (Manual) PT 40.7 H INR 3.85 H APTT D-Dimer ABG pH POC ABG pCO2 POC ABG pO2 ABG Hemoglobin ABG Oxyhemoglobin ABG Sodium ABG Potassium ABG Glucose Sodium Potassium Carbon Dioxide BUN Creatinine Glucose POC Glucose 11 L 144 H Calcium Ferritin Total Bilirubin AST ALT Alkaline Phosphatase Ammonia Lactate Dehydrogenase C-Reactive Protein NT-Pro-B Natriuret Pep Total Protein Albumin Arterial Blood Glucose Arterial Blood Ionized Calcium Coronavirus (PCR) Hepatitis C Antibody
[2021-03-14] MEDS: VASOPRESSIN 20 UNIT in SODIUM CHLORIDE 0.9% 100 ML IV SCH (14:57)
--- NOTE | 2021-03-14 17:13 | Gastroenterology Progress Note ---
Assessment and Plan 1. Liver: alcohol cirrhosis with ascites presented w/ COVID PNA and intubated - noted pt lft's initial stable now AST >4K - pt h/o hep C but strongly suspect shock liver (less likely DILI) due to hypotension/sepsis - noted INR 3.8 - discussed w/ primary team, can discuss acute liver failure with transplant center but given medical issues highly doubt pt can be transferred - conservative management from GI liver standpoint - hemodynamic stability per primary team - if signs bleeding then Vitamin K - avoid hepatotoxic drugs - liver related serologies 2. Pulm: COVID pna intubated - antibiotics per ID - cent per Pulmonary - poor prognosis - will follow Subjective Date of service: 03/14/21 Interval history: - no changes form GI standpoint overnight Objective - Constitutional Vitals: Temp Pulse Resp BP Pulse Ox 98.5 F 74 16 98/64 96 03/14/21 00:30 03/14/21 17:03 03/14/21 17:03 03/14/21 17:03 03/14/21 17:03 General appearance: no acute distress - EENT Eyes: scleral icterus - Respiratory Respiratory: bilateral: rhonchi - Cardiovascular Rhythm: regular - Gastrointestinal General gastrointestinal: Present: soft, non-tender, non-distended - Labs CBC & Chem 7: 03/14/21 05:34 03/14/21 07:18 Labs: Laboratory Results - last 24 hr 03/14/21 03/14/21 03/14/21 05:00 05:34 05:34 WBC 16.9 H RBC 3.70 Hgb 7.9 L Hct 29.4 L MCV 80 L MCH 22 L MCHC 27 L RDW 28.6 H Plt Count 182 Add Manual Diff Complete Total Counted 100 Seg Neutrophils % Band Edger Seg Neuts % (Manual) 72.0 H Band Neutrophils % 16.0 Lymphocytes % (Manual) 5.0 L Reactive Lymphs % (Man) 0 Monocytes % (Manual) 4.0 Eosinophils % (Manual) 0 Basophils % (Manual) 0 Metamyelocytes % 1.0 Myelocytes % 2.0 Promyelocytes % 0 Blast Cells % 0 Nucleated RBC % 7.0 H Seg Neutrophils # Man 12.2 H Band Neutrophils # 2.7 Lymphocytes # (Manual) 0.8 L Abs React Lymphs (Man) 0.0 Monocytes # (Manual) 0.7 Eosinophils # (Manual) 0.0 Basophils # (Manual) 0.0 Metamyelocytes # 0.2 Myelocytes # 0.3 Promyelocytes # 0.0 Blast Cells # 0.0 Pathologist Review Hypersegmented Neuts Not Reportable Hyposegmented Neuts Not Reportable Hypogranular Neuts Not Reportable Smudge Cells Not Reportable Toxic Granulation 1+ Toxic Vacuolation Not Reportable Dohle Bodies Not Reportable Pelger-Huet Anomaly Not Reportable Saqib Rods Not Reportable Platelet Estimate Consistent w auto Clumped Platelets Band Edger Plt Clumps, EDTA Not Reportable Large Platelets Few Giant Platelets Not Reportable Platelet Satelliting Not Reportable Plt Morphology Comment Not Reportable RBC Morphology Not Reportable Dimorphic RBCs Not Reportable Polychromasia 1+ Hypochromasia 2+ Poikilocytosis Not Reportable Anisocytosis 2+ Microcytosis 1+ Macrocytosis Not Reportable Spherocytes Not Reportable Pappenheimer Bodies Not Reportable Sickle Cells Not Reportable Target Cells 1+ Tear Drop Cells Not Reportable Ovalocytes Not Reportable Helmet Cells Not Reportable [place] Bodies Not Reportable [place] Rings Not Reportable Obdulio Cells 1+ Bite Cells Not Reportable Crenated Cell Not Reportable Elliptocytes Not Reportable Acanthocytes (Spur) Not Reportable Rouleaux Not Reportable Hemoglobin C Crystals Not Reportable Schistocytes Not Reportable Malaria parasites Not Reportable Wolf Bodies Not Reportable Hem Pathologist Commnt Sent to pathology PT INR D-Dimer > 70844 H ABG pH 7.167 L POC ABG pCO2 24.6 L POC ABG pO2 96.2 POC ABG HCO3 8.7 ABG O2 Saturation 95.6 POC ABG Base Excess -18.2 ABG Hemoglobin 9.3 L ABG Oxyhemoglobin 94.9 ABG Methemoglobin 0 ABG Sodium 135.2 L ABG Potassium 5.5 H ABG Chloride 106.0 Carboxyhemoglobin 0.7 FiO2 % 40 Sodium Potassium Chloride Carbon Dioxide Anion Gap BUN Creatinine Estimated GFR BUN/Creatinine Ratio Glucose POC Glucose Calcium Ferritin Total Bilirubin AST ALT Alkaline Phosphatase Lactate Dehydrogenase C-Reactive Protein Total Protein Albumin Albumin/Globulin Ratio Arterial Blood Ionized Calcium 4.3 L Hepatitis A IgM Ab Hep Bs Antigen Hep B Core IgM Ab Hepatitis C Antibody 03/14/21 03/14/21 03/14/21 05:34 05:34 05:34 WBC RBC Hgb Hct MCV MCH MCHC RDW Plt Count Add Manual Diff Total Counted Seg Neutrophils % Seg Neuts % (Manual) Band Neutrophils % Lymphocytes % (Manual) Reactive Lymphs % (Man) Monocytes % (Manual) Eosinophils % (Manual) Basophils % (Manual) Metamyelocytes % Myelocytes % Promyelocytes % Blast Cells % Nucleated RBC % Seg Neutrophils # Man Band Neutrophils # Lymphocytes # (Manual) Abs React Lymphs (Man) Monocytes # (Manual) Eosinophils # (Manual) Basophils # (Manual) Metamyelocytes # Myelocytes # Promyelocytes # Blast Cells # Pathologist Review Hypersegmented Neuts Hyposegmented Neuts Hypogranular Neuts Smudge Cells Toxic Granulation Toxic Vacuolation Dohle Bodies Pelger-Huet Anomaly Saqib Rods Platelet Estimate Clumped Platelets Plt Clumps, EDTA Large Platelets Giant Platelets Platelet Satelliting Plt Morphology Comment RBC Morphology Dimorphic RBCs Polychromasia Hypochromasia Poikilocytosis Anisocytosis Microcytosis Macrocytosis Spherocytes Pappenheimer Bodies Sickle Cells Target Cells Tear Drop Cells Ovalocytes Helmet Cells [place] Bodies [place] Rings [place] Cells Bite Cells Crenated Cell Elliptocytes Acanthocytes (Spur) Rouleaux Hemoglobin C Crystals Schistocytes Malaria parasites Wolf Bodies Hem Pathologist Commnt PT INR D-Dimer ABG pH POC ABG pCO2 POC ABG pO2 POC ABG HCO3 ABG O2 Saturation POC ABG Base Excess ABG Hemoglobin ABG Oxyhemoglobin ABG Methemoglobin ABG Sodium ABG Potassium ABG Chloride Carboxyhemoglobin FiO2 % Sodium 140 Potassium 5.7 H D Chloride 105.8 Carbon Dioxide TNR Anion Gap 33 BUN 37 H Creatinine TNR Estimated GFR 27 BUN/Creatinine Ratio 15 Glucose TNR POC Glucose Calcium 7.9 L Ferritin 6545.0 H Total Bilirubin 1.80 H AST 4019 H ALT 501 H Alkaline Phosphatase 128 Lactate Dehydrogenase 2367 H C-Reactive Protein 8.40 H Total Protein 5.8 L Albumin 1.8 L Albumin/Globulin Ratio 0.5 Arterial Blood Ionized Calcium Hepatitis A IgM Ab Non-reactive Hep Bs Antigen Nonreactive Hep B Core IgM Ab Non-reactive Hepatitis C Antibody Reactive A 03/14/21 03/14/21 03/14/21 07:16 07:18 08:08 WBC RBC Hgb Hct MCV MCH MCHC RDW Plt Count Add Manual Diff Total Counted Seg Neutrophils % Seg Neuts % (Manual) Band Neutrophils % Lymphocytes % (Manual) Reactive Lymphs % (Man) Monocytes % (Manual) Eosinophils % (Manual) Basophils % (Manual) Metamyelocytes % Myelocytes % Promyelocytes % Blast Cells % Nucleated RBC % Seg Neutrophils # Man Band Neutrophils # Lymphocytes # (Manual) Abs React Lymphs (Man) Monocytes # (Manual) Eosinophils # (Manual) Basophils # (Manual) Metamyelocytes # Myelocytes # Promyelocytes # Blast Cells # Pathologist Review Hypersegmented Neuts Hyposegmented Neuts Hypogranular Neuts Smudge Cells Toxic Granulation Toxic Vacuolation Dohle Bodies Pelger-Huet Anomaly Saqib Rods Platelet Estimate Clumped Platelets Plt Clumps, EDTA Large Platelets Giant Platelets Platelet Satelliting Plt Morphology Comment RBC Morphology Dimorphic RBCs Polychromasia Hypochromasia Poikilocytosis Anisocytosis Microcytosis Macrocytosis Spherocytes Pappenheimer Bodies Sickle Cells Target Cells Tear Drop Cells Ovalocytes Helmet Cells [place] Bodies [place] Rings [place] Cells Bite Cells Crenated Cell Elliptocytes Acanthocytes (Spur) Rouleaux Hemoglobin C Crystals Schistocytes Malaria parasites Wolf Bodies Hem Pathologist Commnt PT INR D-Dimer ABG pH POC ABG pCO2 POC ABG pO2 POC ABG HCO3 ABG O2 Saturation POC ABG Base Excess ABG Hemoglobin ABG Oxyhemoglobin ABG Methemoglobin ABG Sodium ABG Potassium ABG Chloride Carboxyhemoglobin FiO2 % Sodium 145 Potassium 5.4 H Chloride 106.5 Carbon Dioxide 12 L Anion Gap 32 BUN 38 H Creatinine 2.5 H D Estimated GFR 26 BUN/Creatinine Ratio 15 Glucose 29 L* POC Glucose 17 L 11 L Calcium 7.6 L Ferritin Total Bilirubin AST ALT Alkaline Phosphatase Lactate Dehydrogenase 2218 H C-Reactive Protein 8.30 H Total Protein Albumin Albumin/Globulin Ratio Arterial Blood Ionized Calcium Hepatitis A IgM Ab Hep Bs Antigen Hep B Core IgM Ab Hepatitis C Antibody 03/14/21 03/14/21 08:59 10:06 WBC RBC Hgb Hct MCV MCH MCHC RDW Plt Count Add Manual Diff Total Counted Seg Neutrophils % Seg Neuts % (Manual) Band Neutrophils % Lymphocytes % (Manual) Reactive Lymphs % (Man) Monocytes % (Manual) Eosinophils % (Manual) Basophils % (Manual) Metamyelocytes % Myelocytes % Promyelocytes % Blast Cells % Nucleated RBC % Seg Neutrophils # Man Band Neutrophils # Lymphocytes # (Manual) Abs React Lymphs (Man) Monocytes # (Manual) Eosinophils # (Manual) Basophils # (Manual) Metamyelocytes # Myelocytes # Promyelocytes # Blast Cells # Pathologist Review Hypersegmented Neuts Hyposegmented Neuts Hypogranular Neuts Smudge Cells Toxic Granulation Toxic Vacuolation Dohle Bodies Pelger-Huet Anomaly Saqib Rods Platelet Estimate Clumped Platelets Plt Clumps, EDTA Large Platelets Giant Platelets Platelet Satelliting Plt Morphology Comment RBC Morphology Dimorphic RBCs Polychromasia Hypochromasia Poikilocytosis Anisocytosis Microcytosis Macrocytosis Spherocytes Pappenheimer Bodies Sickle Cells Target Cells Tear Drop Cells Ovalocytes Helmet Cells [place] Bodies [place] Rings Obdulio Cells Bite Cells Crenated Cell Elliptocytes Acanthocytes (Spur) Rouleaux Hemoglobin C Crystals Schistocytes Malaria parasites Wolf Bodies Hem Pathologist Commnt PT 40.7 H INR 3.85 H D-Dimer ABG pH POC ABG pCO2 POC ABG pO2 POC ABG HCO3 ABG O2 Saturation POC ABG Base Excess ABG Hemoglobin ABG Oxyhemoglobin ABG Methemoglobin ABG Sodium ABG Potassium ABG Chloride Carboxyhemoglobin FiO2 % Sodium Potassium Chloride Carbon Dioxide Anion Gap BUN Creatinine Estimated GFR BUN/Creatinine Ratio Glucose POC Glucose 144 H Calcium Ferritin Total Bilirubin AST ALT Alkaline Phosphatase Lactate Dehydrogenase C-Reactive Protein Total Protein Albumin Albumin/Globulin Ratio Arterial Blood Ionized Calcium Hepatitis A IgM Ab Hep Bs Antigen Hep B Core IgM Ab Hepatitis C Antibody
[2021-03-14] MEDS ORDERED: REMDESIVIR 100 MG in SODIUM CHLORIDE 0.9% 250ML 250 ML IV SCH (21:00)
[2021-03-14] MEDS: SPIRONOLACTONE 50 MG TAB PO SCH (21:28)
[2021-03-15] MEDS: IPRATROPIUM/ALBUTEROL SULFATE 3 ML AMPUL.NEB IH SCH ×5 (01:02→08:51)
[2021-03-15] MEDS: SODIUM CHLORIDE 0.9% 50 ML IVPB IV SCH ×2 (01:39→21:38)
[2021-03-15] MEDS: NORepinephrine/NS 8 MG-250 ML 8 MG/250 ML INFUS..BTL IV SCH ×2 (02:13→13:47)
[2021-03-15 04:01] LABS: ABG Base Excess -21.8 mmol/L (-2.0-3.0); ABG HCO3 6.2 mmol/L (20.0-26.0); ABG Methemoglobin 0.6 % (0.0-1.5); ABG Oxygen Saturation 92.8 % (95.0-99.0); ABG PCO2 21.2 mm Hg; ABG PO2 90.7 mm Hg (80.0-90.0)
[2021-03-15 04:06] LABS: ABG PH 7.088 pH Units (7.350-7.450)
[2021-03-15] MEDS: SODIUM BICARBONATE 150 MEQ in DEXTROSE 5% IN WATER 1,000 ML IV SCH ×3 (04:31→21:38)
[2021-03-15 04:50] LABS: Albumin 1.8 g/dL (3.9-5); Calcium 7.4 mg/dL (8.4-10.2)
--- NOTE | 2021-03-15 05:02 | XRay Report ---
CHEST - 1 VIEW INDICATION: follow up respiratory failure COMPARISON: Yesterday FINDINGS: SUPPORT DEVICES: Stable support device positioning. HEART: Stable cardiomediastinal silhouette. LUNGS/PLEURA: Moderate patchy diffuse airspace disease throughout the right lung and more mild disea se/edema in the left lung. ADDITIONAL FINDINGS: None. IMPRESSION: Unchanged exam. Signer Name: Sean Reed MD Signed: 03/15/2021 4:57 AM Workstation Name: [id number]
[2021-03-15] MEDS ORDERED: INSULIN REGULAR, HUMAN 100 UNITS/1 ML IV ONE (05:34)
[2021-03-15] MEDS ORDERED: SODIUM POLYSTYRENE 15 GM/60 ML ORAL LIQD PO ONE (05:35)
[2021-03-15] MEDS ORDERED: CALCIUM CHLORIDE 1,000 MG in SODIUM CHLORIDE 0.9% 100 ML IV ONE (05:53)
[2021-03-15] MEDS ORDERED: DEXTROSE 50% IN WATER (25GM) 50 ML SYRINGE IV ONE (05:54)
[2021-03-15] MEDS ORDERED: SODIUM BICARB 8.4% 50 MEQ/50 ML SYRINGE IV SCH (09:00)
[2021-03-15] MEDS: VASOPRESSIN 20 UNIT in SODIUM CHLORIDE 0.9% 100 ML IV SCH ×2 (09:09→21:38)
--- NOTE | 2021-03-15 09:18 | Consultation ---
History of Present Illness - Reason for Consult Consult date: 03/15/21 acute renal failure, hyperkalemia, metabolic acidosis Requesting physician: DAISY VIEIRA - History of Present Illness This is a 65-year-old -[place] male presents to the emergency department with a complaint of shortness of breath, abdominal distention, and the patient is positive for COVID-19. Patient was admitted here on 02/28 until 03/04. When he visited on 02/28 the patient did not have any known past medical history but does have a history of daily alcohol use and dependence, as well as tobacco use. He was found to have liver cirrhosis causing ascites, as well as anemia and he was having some intermittent rectal bleeding. During that last admission the patient had a paracentesis in which they removed 13 L of fluid, and he had a colonoscopy done with GI. Patient's daughter says that he tested positive for COVID-19 last week. Patient is currently AAO x3. The patient was seen in triage and was found to have a pulse ox of about 70% on room air. - Past Medical History Hx Hypertension: No Hx Heart Attack/AMI: No Hx Liver Disease: Yes (HCV) Hx Renal Disease: No Additional medical history: None reported - Social History Smoking Status: Current Every Day Smoker ROS: Stated complaint: abdominal distention Other details as noted in HPI Comment: All other systems reviewed and negative Constitutional: denies: chills, fever Eyes: denies: eye pain, vision change ENT: denies: ear pain, throat pain Respiratory: shortness of breath. denies: cough Cardiovascular: denies: chest pain, palpitations Gastrointestinal: abdominal pain. denies: vomiting Genitourinary: denies: dysuria, discharge Musculoskeletal: denies: back pain, arthralgia Skin: denies: rash, lesions Neurological: denies: headache, weakness Past History Past Medical History: anemia, hepatitis, liver disease, renal failure (Tobacco abuser), other (Alcohol abuse, ascites, anemia, COVID) Family history: hypertension Medications and Allergies Allergies Allergy/AdvReac Type Severity Reaction Status Date / Time No Known Allergies Allergy Verified 02/27/21 20:19 Home Medications Medication Instructions Recorded Confirmed Last Taken Type Ferrous Sulfate [Feosol 325 MG tab] 325 mg PO BID #30 tablet 03/04/21 Unknown Rx Folic Acid [Folvite] 1 mg PO QDAY #30 tablet 03/04/21 Unknown Rx Spironolactone [Aldactone] 50 mg PO QDAY #30 tablet 03/04/21 Unknown Rx Thiamine [Vitamin B-1] 100 mg PO QDAY #30 tablet 03/04/21 Unknown Rx Active Meds: Active Medications Acetaminophen (Acetaminophen 325 Mg Tab) 650 mg PO Q4H PRN PRN Reason: Pain MILD(1-3)/Fever >100.5/KHAN Albumin Human (Albumin Human 25% (25 Gm/100 Ml) Inj) 25 gm IV Q8HR [facility] Stop: 03/16/21 22:01 Albuterol (Albuterol 2.5 Mg/3 Ml Nebu) 2.5 mg IH Q4HRT PRN PRN Reason: Shortness Of Breath Dexamethasone (Dexamethasone 4 Mg/Ml Vial) 6 mg IV DAILY [facility] Stop: 03/22/21 10:01 Last Admin: 03/14/21 10:43 Dose: 6 mg Dextrose (Dextrose 50% In Water (25gm) 50 Ml Syringe) 25 ml IV Q30MIN PRN; Protocol PRN Reason: Hypoglycemia Dextrose (Dextrose 50% In Water (25gm) 50 Ml Syringe) 50 ml IV Q30MIN PRN; Protocol PRN Reason: Hypoglycemia Famotidine (Famotidine 20 Mg/2 Ml Inj) 10 mg IV BID [facility] Last Admin: 03/14/21 23:03 Dose: 10 mg Fentanyl (Fentanyl 100 Mcg/2 Ml Inj) 50 mcg IV Q10MIN PRN PRN Reason: ANALGESIA Ferrous Sulfate (Ferrous Sulfate 300 Mg (60mg Elemental Iron) / 5 Ml Oral Liqd) 300 mg PO BID [facility] Last Admin: 03/14/21 23:05 Dose: 300 mg Folic Acid (Folic Acid 1 Mg Tab) 1 mg PO QDAY [facility] Last Admin: 03/14/21 11:05 Dose: 1 mg Hydromorphone HCl (Hydromorphone 1 Mg/1 Ml Inj) 0.5 mg IV Q3H PRN PRN Reason: Pain , Severe (7-10) Hydrophilic Ointment (Lip Therapy Vaseline) 1 applic TP Q2HR PRN PRN Reason: Dry Lips Ceftriaxone Sodium (Rocephin/Ns 2 Gm/100 Ml) 2 gm in 100 mls @ 200 mls/hr IV Q24HR [facility]; Protocol Last Admin: 03/14/21 10:35 Dose: 200 mls/hr Fentanyl Citrate (Fentanyl Drip Premix) 2,000 mcg in 100 mls @ 3.402 mls/hr IV TITR STEPHEN; Protocol NORepinephrine/NS 8 MG-250 ML (Norepinephrine/Ns 8 Mg-250 Ml (Double Conc)) 8 mg in 250 mls @ 3.75 mls/hr IV TITRATE STEPHEN; Protocol Last Titration: 03/15/21 06:47 Dose: 8 mcg/min, 15 mls/hr Sodium Bicarbonate 150 meq/ (Dextrose) 1,150 mls @ 150 mls/hr IV DIRECT STEPHEN Last Admin: 03/15/21 04:31 Dose: 150 mls/hr Vasopressin 20 unit/ Sodium (Chloride) 101 mls @ 9.09 mls/hr IV TITR STEPHEN; Protocol Last Admin: 03/15/21 09:09 Dose: 0.03 units/min, 9.09 mls/hr Sodium Chloride (Nacl 0.9%) 100 mls @ 999 mls/hr IV VICKEY PRN PRN Reason: Hypotension Multi-Ingred Cream/Lotion/Oil/Oint (Mineral Oil/Petrolatum, White Ophth Oint 3.5 Gm) 1 applic OU Q4HR PRN PRN Reason: Dry Eye(s) Ondansetron HCl (Ondansetron 4 Mg/2 Ml Inj) 4 mg IV Q8H PRN PRN Reason: Nausea And Vomiting Senna/Docusate Sodium (Sennosides/Docusate Sodium 8.6/50 Mg Tab) 1 tab FEEDTUBE BID [facility] Last Admin: 03/14/21 23:03 Dose: 1 tab Sodium Bicarbonate (Sodium Bicarb 8.4% 50 Meq/50 Ml Syringe) 50 meq IV ONCE@0900 [facility] Stop: 03/15/21 13:00 Last Admin: 03/15/21 09:13 Dose: 50 meq Sodium Chloride (Sodium Chloride 0.9% 10 Ml Flush Syringe) 10 ml IV BID [facility] Last Admin: 03/14/21 23:15 Dose: 10 ml Sodium Chloride (Sodium Chloride 0.9% 10 Ml Flush Syringe) 10 ml IV PRN PRN PRN Reason: LINE FLUSH Sodium Chloride (Sodium Chloride 0.9% 50 Ml Ivpb) 50 ml IV Q24HR@2100 [facility] Stop: 03/17/21 21:01 Last Admin: 03/15/21 01:39 Dose: Not Given Thiamine HCl (Thiamine 100 Mg Tab) 100 mg PO QDAY STEPHEN Last Admin: 03/14/21 11:05 Dose: 100 mg Exam - Vital Signs Vital signs: Vital Signs Pulse Resp BP Pulse Ox 127 H 16 127/81 75 L 03/12/21 18:20 03/12/21 18:20 03/12/21 18:20 03/12/21 18:20 - Physical Exam Narrative exam: Physical Exam: exam deferred, primary team exam noted Results - Lab Results 03/14/21 05:34 03/15/21 04:17 Most recent lab results ABG pH 7.088 pH Units (7.350-7.450) L* 03/15/21 03:42 ABG pCO2 21.2 mm Hg 03/15/21 03:42 ABG pO2 90.7 mm Hg (80.0-90.0) H 03/15/21 03:42 ABG HCO3 6.2 mmol/L (20.0-26.0) L 03/15/21 03:42 ABG O2 Saturation 92.8 % (95.0-99.0) L 03/15/21 03:42 Calcium 7.4 mg/dL (8.4-10.2) L 03/15/21 04:17 Assessment and Plan Impression: * IVON--ATN * sepsis * acute hypoxic resp failure * COVID PNA * Hepatitis * hyperkalemia * refractory acidosis Plan: * k and co2 noted, will req hemodialysis for correction of acidosis and hyperkalemia to have chance of survival * continue bicarb gtt, add albumin * hd to attempt to control acidosis and hyperkalemia * kayexlate prn * daily lytes, strict i/os * keep MAP >65, vasopressors prn * no uf at this time with hd * discussed with critical care
[2021-03-15] MEDS: SENNOSIDES/DOCUSATE SODIUM 8.6/50 MG TAB FEEDTUBE SCH ×2 (09:27→21:39)
[2021-03-15] MEDS: FAMOTIDINE 20 MG/2 ML INJ IV SCH ×2 (09:27→21:39)
[2021-03-15] MEDS: THIAMINE 100 MG TAB PO SCH (09:28)
[2021-03-15] MEDS: FOLIC ACID 1 MG TAB PO SCH (09:28)
[2021-03-15] MEDS: dexAMETHasone 4 MG/ML VIAL IV SCH (09:28)
[2021-03-15] MEDS: cefTRIAXone/NS 2 GM/100 ML 2 GM/100 ML BAG IV SCH (09:29)
[2021-03-15] MEDS: ALBUMIN HUMAN 25% (25 GM/100 ML) INJ IV SCH ×2 (09:42→18:46)
[2021-03-15] MEDS ORDERED: SODIUM CHLORIDE 0.9% 100 ML IV PRN (10:00)
[2021-03-15] MEDS ORDERED: DEXTROSE 50% IN WATER (25GM) 50 ML SYRINGE IV PRN (10:00)
[2021-03-15] MEDS ORDERED: SODIUM BICARBONATE 150 MEQ in DEXTROSE 5% IN WATER 1,000 ML IV SCH (10:00)
[2021-03-15] MEDS ORDERED: EPOETIN ALFA-EPBX 20,000 UNIT/1 ML VIAL IV PRN (10:00)
--- NOTE | 2021-03-15 10:27 | XRay Report ---
ABDOMEN 1 VIEW(S) INDICATION / CLINICAL INFORMATION: ogt placement. COMPARISON: 03/12/2021 FINDINGS: TUBES / LINES: The sidehole in distal tip of the nasogastric tube terminates in the gastric fundus. BOWEL GAS PATTERN: No significant abnormality. FREE AIR / EXTRALUMINAL GAS: None seen. ADDITIONAL FINDINGS: No significant additional findings. IMPRESSION: No significant abnormality. Nasogastric tube as described. Signer Name: Simon Owens Jr, MD Signed: 03/15/2021 10:23 AM Workstation Name: [id number]
--- NOTE | 2021-03-15 11:03 | Electrocardiograph Report ---
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 Electronically Signed On 03-15-2021 11:03:04 EST by Florencio Pressley
[2021-03-15] MEDS: FERROUS SULFATE 300 MG (60MG Elemental Iron) / 5 mL ORAL LIQD PO SCH ×2 (11:15→21:38)
--- NOTE | 2021-03-15 11:54 | Progress Note ---
Assessment and Plan Cultures: SARS CoV2 PCR: Positive as outpatient 03/12/2021 blood culture: no growth A/P: 65-year-old male with hepatic cirrhosis, chronic hepatitis C, anemia, ascites, recent hospitalization due to worsening ascites, underwent paracentesis with removal of 13 L of fluid, now with: #Septic shock: from COVID, also rule out SBP. Initial labs showed significant leukocytosis of 15.4, D-dimer greater than 10K, procalcitonin 8.67, CRP 10.8, LDH 287, ferritin 414, ammonia 72. Ferritin next day worsened to 6545, AST 4019, ALT 501 #Bilateral pneumonia: secondary to COVID-19 #Right pleural effusion, ascites #Acute hypoxic respiratory failure: on the vent #Hepatic cirrhosis with ascites #Chronic hepatitis C: genotype 1a. #acute hepatic failure #Chronic Hep C: antibody positive. VL or treatment status unknown Recs: -continue to hold remdesivir -continue IV/PO Dexamethasone x 10 days -Not a candidate for Actemra -prophylactic anticoagulation based on d-dimer per hospital protocol -continue empiric abx: ceftriaxone, IV Vancomycin -trend ferritin, d-dimer, CRP every 2-3 days -extremely poor prognosis Jhony Nickerson MD, FACP, [facility] O: [phone] F: [phone] Subjective Date of service: 03/15/21 Interval history: hypothermic. afebrile. Remains on the vent, critically ill, on pressors. Objective - Exam Narrative Exam: Physical Exam (reviewed in chart to minimize risk of transmission) Constitutional: deferred Head, Ears, Nose: deferred Eyes: deferred Neck: deferred Oral: deferred Cardiovascular: deferred Respiratory: deferred GI: deferred Musculoskeletal: deferred Skin: deferred Hem/Lymphatic: deferred Psych: deferred Neurological: deferred - Constitutional Vitals: Vital Signs Temp Pulse Resp BP Pulse Ox 97.9 F 113 H 28 H 98/52 83 L 03/15/21 08:00 03/15/21 10:00 03/15/21 10:00 03/15/21 10:00 03/15/21 10:00 Temperature -Last 24 Hours Temperature 97.9 F Temperature 95.9 F Temperature 97.7 F Temperature 93.6 F Temperature 93.6 F Temperature 93.4 F - Labs CBC & Chem 7: 03/14/21 05:34 03/15/21 04:17 Labs: Abnormal lab results 03/14/21 03/14/21 03/15/21 Range/Units 05:34 18:15 03:42 ABG pH 7.088 L* (7.350-7.450) pH Units ABG pO2 90.7 H (80.0-90.0) mm Hg ABG HCO3 6.2 L (20.0-26.0) mmol/L ABG O2 Saturation 92.8 L (95.0-99.0) % ABG Base Excess -21.8 L (-2.0-3.0) mmol/L ABG Hemoglobin 8.9 L (14.0-18.0) gm/dl Oxyhemoglobin 90.8 L (95.0-99.0) % Potassium (3.6-5.0) mmol/L Carbon Dioxide (22-30) mmol/L BUN (9-20) mg/dL Creatinine (0.8-1.3) mg/dL POC Glucose 124 H (70-105) mg/dL Calcium (8.4-10.2) mg/dL Total Bilirubin (0.1-1.2) mg/dL AST (5-40) units/L ALT (7-56) units/L Alkaline Phosphatase (35-129) units/L Total Protein (6.3-8.2) g/dL Albumin (3.9-5) g/dL Hepatitis C Antibody Reactive A (NonReactive) 03/15/21 03/15/21 Range/Units 04:17 11:41 ABG pH (7.350-7.450) pH Units ABG pO2 (80.0-90.0) mm Hg ABG HCO3 (20.0-26.0) mmol/L ABG O2 Saturation (95.0-99.0) % ABG Base Excess (-2.0-3.0) mmol/L ABG Hemoglobin (14.0-18.0) gm/dl Oxyhemoglobin (95.0-99.0) % Potassium 6.5 H* D (3.6-5.0) mmol/L Carbon Dioxide 5 L* D (22-30) mmol/L BUN 37 H (9-20) mg/dL Creatinine 2.1 H (0.8-1.3) mg/dL POC Glucose 17 L (70-105) mg/dL Calcium 7.4 L (8.4-10.2) mg/dL Total Bilirubin 2.40 H (0.1-1.2) mg/dL AST 3911 H (5-40) units/L ALT 663 H (7-56) units/L Alkaline Phosphatase 139 H (35-129) units/L Total Protein 5.8 L (6.3-8.2) g/dL Albumin 1.8 L (3.9-5) g/dL Hepatitis C Antibody (NonReactive)
[2021-03-15] MEDS: DEXTROSE 50% IN WATER (25GM) 50 ML SYRINGE IV PRN ×2 (11:57→13:34)
[2021-03-15 12:07] LABS: Calcium 5.8 mg/dL (8.4-10.2)
--- NOTE | 2021-03-15 12:14 | Procedure Note ---
<MISSY MORGAN - Last Filed: 03/15/21 12:18> Date of procedure: 03/15/21 Pre-op diagnosis: ESLD, IVON,COVID PNA, Septic shock Post-op diagnosis: same Procedure: Statement of consent: Telephone consent obtained from daughter Magui Louise at [phone], which was witnessed by RN. See chart for consent Vascath Trialysis catheter was placed in right femoral vein. Sterile technique was utilized. Area prepped with chlorhexidine/ full body drape utilized. Area infiltrated with 1% lidocaine. Ultrasound guidance was used to find and access the vessel. Line was placed without difficulty. Line was sutured, no biopatch available to place and tegaderm dressing applied. Pt tolerated procedure well. VS remained stable throughout procedure. Hemodialysis nurse informed by RN that line is in place. (time spent placing line not included in daily critical care time) CCT: 60 min Anesthesia: local Surgeon: MISSY MORGAN Annealer: DAISY VIEIRA Estimated blood loss: minimal Condition: critical Disposition: ICU <JOSIE HESS - Last Filed: 03/24/21 13:20> Procedure: I saw and evaluated the patient. Discussed with the nurse practitioner and agree with their findings and plan as documented in this note. Annealer: JOSIE HESS
[2021-03-15] MEDS ORDERED: PHENYLEPHRINE 100 MG in SODIUM CHLORIDE 0.9% 90 ML IV SCH (14:00)
--- NOTE | 2021-03-15 14:14 | Progress Note ---
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 Patient was admitted to [facility] with the paracentesis and removal of 13 L of fluid and colonoscopy with GI due to intermittent rectal bleeding. Patient's daughter stated that he tested positive for COVID-19 the week prior to admission. In triage patient was found to have SPO2 of 70% on room air, tachypnea and tachycardia. Patient was placed on a BiPAP in the emergency department and hyperglycemia was treated with dextrose. Patient did not tolerate BiPAP as he kept removing it and was desaturating. At this time patient was intubated by the ED physician. CXR showed bilateral p neumonia and right-sided large pleural effusion, abdominal x-ray showed large volume ascites. Lab work showed leukocytosis, anemia, slightly elevated coag studies, mild renal insufficiency and elevated proBNP with elevated COVID-19 inflammatory markers. Patient was given antibiotics and Decadron and admitted to the hospitalist service with consults to pulmonology, GI and infectious disease. Hospital Course: 03/13: Awaiting PCCM, GI, ID input. Ordered CTA chest to rule out PE. Fluids increased due to concern for intravascular depletion. 03/14: Worsening hepatic transaminits, hypoglycemia noted. D/w GI and CCM regarding worsening liver function, likely shock liver. Will attempt [place] transfer for hepatology services, call placed. Worsening renal function, consult placed to nephrology. 03/15: This morning decision was made by nephrology to initiate hemodialysis. Femoral Vas-Cath placed. Patient remains on Levophed and vasopressin and bicarbonate drip. Despite bicarbonate drip patient was acidotic on ABG and given additional 2 A of bicarb. Added phenyl epi gtt for HD if needed. I u pdated the daughter today while obtaining consent. This is a 65 year old with ESLD 2/2 hepatitis C/EtOH abuse, anemia, recent rectal bleeding, recurrent ascites admitted with COVID-19 pneumonia, acute decompensated liver failure, shock liver, transaminitis, sepsis Assessment and Plan Neuro: Sedated, Acute Hepatic/ Metabolic Encephalopathy -Off sedation d/t hypotension -Avoid delirium -Maintain sleep-wake cycle -No reponse to painful stimui, Pupils not reactive to light -Neuro consulted, appreciate recommendations -Thiamine CV: Sinus tachcardia, hypotension - Vasopressor support with levophed, vasopressin -Tejinder-Synephrine ordered if needed -map goal > 60 -Blood pressure monitoring protocol -Consider cardiology consultation if needed Pulm: Acute respiratory failure with hypoxia,h/o tobacco abuse -Intubated 03/12 in the ED with 7.50 ETT at 24 at the [facility] -CCM consulted, appreciate recommendations -A.m. settings: Assist control tidal volume 500, rate 18, PEEP 6, FiO2 50% -See RT notes for titration -A.m. 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, recurrent ascites, rectal bleeding -GI consulted, appreciate recommendations -MELD NA: 22. -Serum ammonia 72 on admission -Spironalactone resumed -Abdominal ultrasound shows moderate to large volume ascites throughout all 4 quadrants of the abdomen -Avoid hepatotoxins -Trend LFTs -Per GI if signs of bleeding noted; vitamin K -Conservative management -Denied transfer to [place] for liver failure : Acute kidney injury, hyperkalemia, refractory acidosis -Nephrology consulted, patient recommendations -Secondary to acute tubular necrosis per nephrology -NaHCO3 gtt -A.m. ABG shows metabolic acidosis, given 2 A of sodium bicarb IV push -Given Kayexalate and calcium gluconate for hyperkalemia -Significant output -HD initiated on 03/15 per nephrology -Albumin as needed -Trend BMP -Avoid nephrotoxic medications ID: Sepsis, COVID-19 pneumonia, r/o SBP -Infectious disease consulted, appreciate recommendations -COVID-19 PCR positive -Droplet/isolation precautions -Decadron 6 mg IV (03/13-03/2019) -Antibiotic therapy with Rocephin and vancomycin -Per ID not a candidate for Actemra -Holding remdesivir in setting of transaminitis -Trend COVID-19 telemetry markers -Hold prophylactic anticoagulation due to rectal bleed, supratherapeutic INR. -f/u culture data -Monitor fever and wbc curve Heme: Supratherapeutic INR, elevated D-dimer, h/o anemia due to rectal bleed, microcytic anemia -CTA chest negative for pulmonary embolism -Trend INR -Monitor for bleeding -Hold chemical anticoagulation -SCD to bilateral lower extremities while in bed -Trend CBC -Transfuse hemoglobin less than 7 Endo: Hypoglycemia -Dextrose drip with bicarb -Accu-Cheks every 6 -Hypoglycemic protocol The high probability of a clinically significant, sudden or life threatening deterioration of the [multi] system(s) required my full and direct attention, intervention and personal management. The aggregate critical care time was [90] minutes. This time is in addition to time spent performing reported procedures but includes the following: [x] Data Review and interpretation [x] Patient assessment and monitoring of vital signs [x] Documentation [x] Medication orders and management Hospitalist Physical - Constitutional Vitals: Temp Pulse Resp BP Pulse Ox 98.4 F 107 H 35 H 98/65 93 03/15/21 11:54 03/15/21 13:00 03/15/21 13:00 03/15/21 13:00 03/15/21 13:00 General appearance: Present: cachectic - EENT Eyes: Present: scleral icterus. Absent: PERRL ENT: poor dentition - Neck Neck: Present: other (dark spot noted on left eye, lower half. Bilateral eyes noted with cataracts). Absent: masses or JVD, cervical LAD - Respiratory Respiratory effort: normal Respiratory: bilateral: diminished - Cardiovascular Rhythm: regular Heart Sounds: Present: S1 & S2. Absent: systolic murmur, diastolic murmur - Extremities Extremities: no ischemia, pulses intact, pulses symmetrical, No edema, normal temperature Peripheral Pulses: within normal limits - Abdominal General gastrointestinal: soft, distended, hypoactive bowel sounds - Integumentary Integumentary: Present: warm, dry - Psychiatric Psychiatric: other - Neurologic Neurologic: other (pupils not reactive, no response to painful stimuli, weak cough/gag reflex.) HEART Score - HEART Score Troponin: Troponin T < 0.010 ng/mL (0.00-0.029) 03/12/21 18:54 Results - Labs CBC & Chem 7: 03/14/21 05:34 03/15/21 11:17 Labs: Laboratory Last Values WBC 16.9 K/mm3 (4.5-11.0) H 03/14/21 05:34 RBC 3.70 M/mm3 (3.65-5.03) 03/14/21 05:34 Hgb 7.9 gm/dl (11.8-15.2) L 03/14/21 05:34 Hct 29.4 % (35.5-45.6) L 03/14/21 05:34 MCV 80 fl (84-94) L 03/14/21 05:34 MCH 22 pg (28-32) L 03/14/21 05:34 MCHC 27 % (32-34) L 03/14/21 05:34 RDW 28.6 % (13.2-15.2) H 03/14/21 05:34 Plt Count 182 K/mm3 (140-440) 03/14/21 05:34 Add Manual Diff Complete 03/14/21 05:34 Total Counted 100 03/14/21 05:34 Seg Neutrophils % Extension Course Coordinator 03/14/21 05:34 Seg Neuts % (Manual) 72.0 % (40.0-70.0) H 03/14/21 05:34 Band Neutrophils % 16.0 % 03/14/21 05:34 Lymphocytes % (Manual) 5.0 % (13.4-35.0) L 03/14/21 05:34 Reactive Lymphs % (Man) 0 % 03/14/21 05:34 Monocytes % (Manual) 4.0 % (0.0-7.3) 03/14/21 05:34 Eosinophils % (Manual) 0 % (0.0-4.3) 03/14/21 05:34 Basophils % (Manual) 0 % (0.0-1.8) 03/14/21 05:34 Metamyelocytes % 1.0 % 03/14/21 05:34 Myelocytes % 2.0 % 03/14/21 05:34 Promyelocytes % 0 % 03/14/21 05:34 Blast Cells % 0 % 03/14/21 05:34 Nucleated RBC % 7.0 % (0.0-0.9) H 03/14/21 05:34 Seg Neutrophils # Man 12.2 K/mm3 (1.8-7.7) H 03/14/21 05:34 Band Neutrophils # 2.7 K/mm3 03/14/21 05:34 Lymphocytes # (Manual) 0.8 K/mm3 (1.2-5.4) L 03/14/21 05:34 Abs React Lymphs (Man) 0.0 K/mm3 03/14/21 05:34 Monocytes # (Manual) 0.7 K/mm3 (0.0-0.8) 03/14/21 05:34 Eosinophils # (Manual) 0.0 K/mm3 (0.0-0.4) 03/14/21 05:34 Basophils # (Manual) 0.0 K/mm3 (0.0-0.1) 03/14/21 05:34 Metamyelocytes # 0.2 K/mm3 03/14/21 05:34 Myelocytes # 0.3 K/mm3 03/14/21 05:34 Promyelocytes # 0.0 K/mm3 03/14/21 05:34 Blast Cells # 0.0 K/mm3 03/14/21 05:34 Pathologist Review 03/14/21 05:34 WBC Morphology Not Reportable 03/13/21 14:32 Hypersegmented Neuts Not Reportable 03/14/21 05:34 Hyposegmented Neuts Not Reportable 03/14/21 05:34 Hypogranular Neuts Not Reportable 03/14/21 05:34 Smudge Cells Not Reportable 03/14/21 05:34 Toxic Granulation 1+ 03/14/21 05:34 Toxic Vacuolation Not Reportable 03/14/21 05:34 Dohle Bodies Not Reportable 03/14/21 05:34 Pelger-Huet Anomaly Not Reportable 03/14/21 05:34 Saqib Rods Not Reportable 03/14/21 05:34 Platelet Estimate Consistent w auto 03/14/21 05:34 Clumped Platelets Extension Course Coordinator 03/14/21 05:34 Plt Clumps, EDTA Not Reportable 03/14/21 05:34 Large Platelets Few 03/14/21 05:34 Giant Platelets Not Reportable 03/14/21 05:34 Platelet Satelliting Not Reportable 03/14/21 05:34 Plt Morphology Comment Not Reportable 03/14/21 05:34 RBC Morphology Not Reportable 03/14/21 05:34 Dimorphic RBCs Not Reportable 03/14/21 05:34 Polychromasia 1+ 03/14/21 05:34 Hypochromasia 2+ 03/14/21 05:34 Poikilocytosis Not Reportable 03/14/21 05:34 Anisocytosis 2+ 03/14/21 05:34 Microcytosis 1+ 03/14/21 05:34 Macrocytosis Not Reportable 03/14/21 05:34 Spherocytes Not Reportable 03/14/21 05:34 Pappenheimer Bodies Not Reportable 03/14/21 05:34 Sickle Cells Not Reportable 03/14/21 05:34 Target Cells 1+ 03/14/21 05:34 Tear Drop Cells Not Reportable 03/14/21 05:34 Ovalocytes Not Reportable 03/14/21 05:34 Helmet Cells Not Reportable 03/14/21 05:34 [place] Bodies Not Reportable 03/14/21 05:34 [place] Rings Not Reportable 03/14/21 05:34 Obdulio Cells 1+ 03/14/21 05:34 Bite Cells Not Reportable 03/14/21 05:34 Crenated Cell Not Reportable 03/14/21 05:34 Elliptocytes Not Reportable 03/14/21 05:34 Acanthocytes (Spur) Not Reportable 03/14/21 05:34 Rouleaux Not Reportable 03/14/21 05:34 Hemoglobin C Crystals Not Reportable 03/14/21 05:34 Schistocytes Not Reportable 03/14/21 05:34 Malaria parasites Not Reportable 03/14/21 05:34 Wolf Bodies Not Reportable 03/14/21 05:34 Hem Pathologist Commnt Sent to pathology 03/14/21 05:34 PT 40.7 Sec. (12.2-14.9) H 03/14/21 10:06 INR 3.85 (0.87-1.13) H 03/14/21 10:06 APTT 38.7 Sec. (24.2-36.6) H 03/12/21 18:54 D-Dimer > 23760 ng/mlDDU (0-234) H 03/14/21 05:34 ABG pH 7.088 pH Units (7.350-7.450) L* 03/15/21 03:42 POC ABG pCO2 24.6 mmHg (32.0-48.0) L 03/14/21 05:00 ABG pCO2 21.2 mm Hg 03/15/21 03:42 POC ABG pO2 96.2 mmHg (83-108) 03/14/21 05:00 ABG pO2 90.7 mm Hg (80.0-90.0) H 03/15/21 03:42 POC ABG HCO3 8.7 03/14/21 05:00 ABG HCO3 6.2 mmol/L (20.0-26.0) L 03/15/21 03:42 ABG O2 Saturation 92.8 % (95.0-99.0) L 03/15/21 03:42 ABG O2 Content 11.6 (0.0-44) 03/15/21 03:42 POC ABG Base Excess -18.2 03/14/21 05:00 ABG Base Excess -21.8 mmol/L (-2.0-3.0) L 03/15/21 03:42 ABG Hemoglobin 8.9 gm/dl (14.0-18.0) L 03/15/21 03:42 ABG Oxyhemoglobin 94.9 (94-98) 03/14/21 05:00 ABG Carboxyhemoglobin 1.5 % (0.0-5.0) 03/15/21 03:42 ABG Methemoglobin 0.6 % (0.0-1.5) 03/15/21 03:42 ABG Sodium 135.2 mmol/L (136.0-145.0) L 03/14/21 05:00 ABG Potassium 5.5 mmol/L (3.40-4.50) H 03/14/21 05:00 ABG Chloride 106.0 mmol/L (98-107) 03/14/21 05:00 ABG Glucose 229 mg/dL (65-95) H 03/13/21 00:05 Oxyhemoglobin 90.8 % (95.0-99.0) L 03/15/21 03:42 Carboxyhemoglobin 0.7 (0.5-1.5) 03/14/21 05:00 FiO2 50 % 03/15/21 03:42 FiO2 % 40 03/14/21 05:00 Sodium 153 mmol/L (137-145) H D 03/15/21 11:17 Potassium 4.1 mmol/L (3.6-5.0) D 03/15/21 11:17 Chloride 104.0 mmol/L (98-107) 03/15/21 11:17 Carbon Dioxide 14 mmol/L (22-30) L D 03/15/21 11:17 Anion Gap 39 mmol/L 03/15/21 11:17 BUN 31 mg/dL (9-20) H 03/15/21 11:17 Creatinine 1.8 mg/dL (0.8-1.3) H 03/15/21 11:17 Estimated GFR 38 ml/min 03/15/21 11:17 BUN/Creatinine Ratio 17 % 03/15/21 11:17 Glucose 262 mg/dL (75-100) H 03/15/21 11:17 POC Glucose 40 mg/dL (70-105) L 03/15/21 13:53 Calcium 5.8 mg/dL (8.4-10.2) L* D 03/15/21 11:17 Ferritin 6545.0 ng/mL (30.0-300.0) H 03/14/21 05:34 Total Bilirubin 2.40 mg/dL (0.1-1.2) H 03/15/21 04:17 AST 3911 units/L (5-40) H 03/15/21 04:17 ALT 663 units/L (7-56) H 03/15/21 04:17 Alkaline Phosphatase 139 units/L (35-129) H 03/15/21 04:17 Ammonia 72.0 umol/L (25-60) H 03/12/21 18:54 Lactate Dehydrogenase 2218 units/L (91-180) H 03/14/21 07:18 Troponin T < 0.010 ng/mL (0.00-0.029) 03/12/21 18:54 C-Reactive Protein 8.30 mg/dL (0.00-1.30) H 03/14/21 07:18 NT-Pro-B Natriuret Pep 1838 pg/mL (0-900) H 03/12/21 18:54 Total Protein 5.8 g/dL (6.3-8.2) L 03/15/21 04:17 Albumin 1.8 g/dL (3.9-5) L 03/15/21 04:17 Albumin/Globulin Ratio 0.5 % 03/15/21 04:17 Procalcitonin 8.67 ng/mL (<0.15) 03/12/21 19:04 Arterial Blood Glucose 229 mg/dL (65-95) H 03/13/21 00:05 Arterial Blood Ionized Calcium 4.3 mg/dL (4.6-5.3) L 03/14/21 05:00 Coronavirus (PCR) Positive (Negative) A 03/13/21 Unknown Hepatitis A IgM Ab Non-reactive (NonReactive) 03/14/21 05:34 Hep Bs Antigen Nonreactive (Negative) 03/14/21 05:34 Hep B Core IgM Ab Non-reactive (NonReactive) 03/14/21 05:34 Hepatitis C Antibody Reactive (NonReactive) A 03/14/21 05:34 Blood Type B POSITIVE 03/12/21 18:54 Antibody Screen Negative 03/12/21 18:54 Microbiology: Microbiology 03/12/21 21:07 Peripheral/Venous Blood Culture - Preliminary NO GROWTH AFTER 48 HOURS 03/12/21 21:00 Peripheral/Venous Blood Culture - Preliminary NO GROWTH AFTER 48 HOURS [place]/IV: Voiding Method Indwelling Catheter Active Medications - Current Medications Current Medications: Generic Name Dose Route Start Last Admin Trade Name Freq PRN Reason Stop Dose Admin Acetaminophen 650 mg 03/12/21 21:29 Acetaminophen 325 Mg Tab PO Q4H PRN Pain MILD(1-3)/Fever >100.5/KHAN Albumin Human 25 gm 03/15/21 10:30 03/15/21 09:42 Albumin Human 25% (25 Gm/100 Ml) Inj IV 03/17/21 02:31 25 gm Q8H STEPHEN Administration Albuterol 2.5 mg 03/12/21 21:29 Albuterol 2.5 Mg/3 Ml Nebu IH Q4HRT PRN Shortness Of Breath Dexamethasone 6 mg 03/13/21 10:00 03/15/21 09:28 Dexamethasone 4 Mg/Ml Vial IV 03/22/21 10:01 6 mg DAILY STEPHEN Administration Dextrose 0 ml 03/15/21 10:00 03/15/21 13:34 Dextrose 50% In Water (25gm) 50 Ml Syringe IV 50 ml Q30MIN PRN Administration Hypoglycemia Protocol Famotidine 10 mg 03/14/21 11:00 03/15/21 09:27 Famotidine 20 Mg/2 Ml Inj IV 10 mg BID STEPHEN Administration Fentanyl 50 mcg 03/13/21 16:03 Fentanyl 100 Mcg/2 Ml Inj IV Q10MIN PRN ANALGESIA Ferrous Sulfate 300 mg 03/13/21 10:00 03/15/21 11:15 Ferrous Sulfate 300 Mg (60mg Elemental Iron) / 5 Ml Oral Liqd PO 300 mg BID STEPHEN Administration Folic Acid 1 mg 03/13/21 10:00 03/15/21 09:28 Folic Acid 1 Mg Tab PO 1 mg QDAY STEPHEN Administration Hydromorphone HCl 0.5 mg 03/12/21 21:29 Hydromorphone 1 Mg/1 Ml Inj IV Q3H PRN Pain , Severe (7-10) Hydrophilic Ointment 1 applic 03/12/21 20:02 Lip Therapy Vaseline TP Q2HR PRN Dry Lips Ceftriaxone Sodium 2 gm in 100 mls @ 200 mls/hr 03/13/21 10:00 03/15/21 09:29 Rocephin/Ns 2 Gm/100 Ml IV 200 mls/hr Q24HR STEPHEN Administration Protocol Fentanyl Citrate 2,000 mcg in 100 mls @ 3.402 mls/hr 03/13/21 17:00 Fentanyl Drip Premix IV TITR STEPHEN Protocol 1 MCG/KG/HR NORepinephrine/NS 8 MG-250 ML 8 mg in 250 mls @ 3.75 mls/hr 03/13/21 21:00 03/15/21 13:47 Norepinephrine/Ns 8 Mg-250 Ml (Double Conc) IV 8 mcg/min TITRATE STEPHEN 15 mls/hr Administration Protocol 2 MCG/MIN Sodium Bicarbonate 150 meq/ 1,150 mls @ 150 mls/hr 03/14/21 07:00 03/15/21 13:46 Dextrose IV 150 mls/hr DIRECT STEPHEN Administration Vasopressin 20 unit/ Sodium 101 mls @ 9.09 mls/hr 03/14/21 14:00 03/15/21 09:09 Chloride IV 0.03 units/min TITR STEPHEN 9.09 mls/hr Administration Protocol 0.03 UNITS/MIN Sodium Chloride 100 mls @ 999 mls/hr 03/15/21 10:00 Nacl 0.9% IV VICKEY PRN Hypotension Phenylephrine HCl 100 mg/ 100 mls @ 3 mls/hr 03/15/21 14:00 Sodium Chloride IV TITR STEPHEN Protocol 50 MCG/MIN Multi-Ingred Cream/Lotion/Oil/Oint 1 applic 03/12/21 20:02 Mineral Oil/Petrolatum, White Ophth Oint 3.5 Gm OU Q4HR PRN Dry Eye(s) Ondansetron HCl 4 mg 03/12/21 21:29 Ondansetron 4 Mg/2 Ml Inj IV Q8H PRN Nausea And Vomiting Senna/Docusate Sodium 1 tab 03/12/21 22:00 03/15/21 09:27 Sennosides/Docusate Sodium 8.6/50 Mg Tab FEEDTUBE 1 tab BID STEPHEN Administration Sodium Chloride 10 ml 03/12/21 22:00 03/15/21 09:29 Sodium Chloride 0.9% 10 Ml Flush Syringe IV 10 ml BID STEPHEN Administration Sodium Chloride 10 ml 03/12/21 21:29 Sodium Chloride 0.9% 10 Ml Flush Syringe IV PRN PRN LINE FLUSH Sodium Chloride 50 ml 03/13/21 15:15 03/15/21 01:39 Sodium Chloride 0.9% 50 Ml Ivpb IV 03/17/21 21:01 Not Given Q24HR@2100 STEPHEN Thiamine HCl 100 mg 03/13/21 10:00 03/15/21 09:28 Thiamine 100 Mg Tab PO 100 mg QDAY STEPHEN Administration Nutrition/Malnutrition Assess - Dietary Evaluation Nutrition/Malnutrition Findings: Nutrition Notes Start: 03/13/21 17:20 Freq: Status: Active Protocol: Document 03/15/21 12:38 GERALD (Rec: 03/15/21 12:56 GERALD [email or web address]) Nutrition Notes Initial or Follow up Brief Note Current Diet TF-Vital AF 1.2 Fran @ 56 ml/hr (since B 03/14). Height 5 ft 11 in Weight 61.2 kg [place] Body Weight (kg) 78.18 BMI 18.8 Intake Prior to Admission Good Weight change and time frame Pt stated not having loss body weight [employer]. Discrepancy of 6.83 Kg body weight loss in 2 days reported . Weight Status Appropriate Subjective/Other Information RD consult for routine F/U on TF tolerance and Skin and Malnutrition risk assessment. Pt shows no signs of concern for skin or malnutrition risk at the time, according to Physical Assessment History notes. TF continues as prescribed, therefore, well tolerated. Procedure: Vascath trialysis catheter in R-femoral vein placed. Percent of energy/protein needs met: Prescribed Vital AF 1.2 Fran @ 56 ml/hr provides for energy/ protein needs (1,600 Kcal/100 g) during LOS, 100% Kcal; 100% AA. #1 Nutrition Diagnosis Inadequate oral intake Diagnosis Progress(for reassessment Continues documentation) Nutrition Intervention Nutrition Support: Continue Vital AF 1.2 Fran @ 56 ml/hr. Flush: 90 ml water Q 4 hr, or as per MD. % RDI: 100% Kcal; 100% AA. Goal #1 Provide at least 75% of energy /protein needs through Enteral Feeding during LOS. Follow-Up By: 03/22/21 Additional Comments Continue monitoring TF tolerance and BM. F/U to check TF tolerance. <JOSIE HESS - Last Filed: 03/24/21 13:21> History Interval history: I saw and evaluated the patient. Discussed with the nurse practitioner and agree with their findings and plan as documented in this note. Hospitalist Physical - Constitutional Vitals: Temp Pulse Resp BP Pulse Ox 97.4 F L 130 H 0 L 52/38 0 L 03/22/21 23:42 03/23/21 01:45 03/23/21 02:01 03/23/21 02:01 03/23/21 02:10 HEART Score - HEART Score Troponin: Troponin T < 0.010 ng/mL (0.00-0.029) 03/12/21 18:54 Results - Labs CBC & Chem 7: 03/22/21 04:00 03/22/21 23:20 Labs: Laboratory Last Values WBC 18.8 K/mm3 (4.5-11.0) H 03/22/21 04:00 RBC 3.97 M/mm3 (3.65-5.03) 03/22/21 04:00 Hgb 9.8 gm/dl (11.8-15.2) L 03/22/21 04:00 Hct 34.0 % (35.5-45.6) L 03/22/21 04:00 MCV 86 fl (84-94) 03/22/21 04:00 MCH 25 pg (28-32) L 03/22/21 04:00 MCHC 29 % (32-34) L 03/22/21 04:00 RDW 29.6 % (13.2-15.2) H 03/22/21 04:00 Plt Count 26 K/mm3 (140-440) L D 03/22/21 04:00 Add Manual Diff Complete 03/14/21 05:34 Total Counted 100 03/14/21 05:34 Seg Neutrophils % Extension Course Coordinator 03/14/21 05:34 Seg Neuts % (Manual) 72.0 % (40.0-70.0) H 03/14/21 05:34 Band Neutrophils % 16.0 % 03/14/21 05:34 Lymphocytes % (Manual) 5.0 % (13.4-35.0) L 03/14/21 05:34 Reactive Lymphs % (Man) 0 % 03/14/21 05:34 Monocytes % (Manual) 4.0 % (0.0-7.3) 03/14/21 05:34 Eosinophils % (Manual) 0 % (0.0-4.3) 03/14/21 05:34 Basophils % (Manual) 0 % (0.0-1.8) 03/14/21 05:34 Metamyelocytes % 1.0 % 03/14/21 05:34 Myelocytes % 2.0 % 03/14/21 05:34 Promyelocytes % 0 % 03/14/21 05:34 Blast Cells % 0 % 03/14/21 05:34 Nucleated RBC % 7.0 % (0.0-0.9) H 03/14/21 05:34 Seg Neutrophils # Man 12.2 K/mm3 (1.8-7.7) H 03/14/21 05:34 Band Neutrophils # 2.7 K/mm3 03/14/21 05:34 Lymphocytes # (Manual) 0.8 K/mm3 (1.2-5.4) L 03/14/21 05:34 Abs React Lymphs (Man) 0.0 K/mm3 03/14/21 05:34 Monocytes # (Manual) 0.7 K/mm3 (0.0-0.8) 03/14/21 05:34 Eosinophils # (Manual) 0.0 K/mm3 (0.0-0.4) 03/14/21 05:34 Basophils # (Manual) 0.0 K/mm3 (0.0-0.1) 03/14/21 05:34 Metamyelocytes # 0.2 K/mm3 03/14/21 05:34 Myelocytes # 0.3 K/mm3 03/14/21 05:34 Promyelocytes # 0.0 K/mm3 03/14/21 05:34 Blast Cells # 0.0 K/mm3 03/14/21 05:34 Pathologist Review 03/14/21 05:34 WBC Morphology Not Reportable 03/14/21 05:34 Hypersegmented Neuts Not Reportable 03/14/21 05:34 Hyposegmented Neuts Not Reportable 03/14/21 05:34 Hypogranular Neuts Not Reportable 03/14/21 05:34 Smudge Cells Not Reportable 03/14/21 05:34 Toxic Granulation 1+ 03/14/21 05:34 Toxic Vacuolation Not Reportable 03/14/21 05:34 Dohle Bodies Not Reportable 03/14/21 05:34 Pelger-Huet Anomaly Not Reportable 03/14/21 05:34 Saqib Rods Not Reportable 03/14/21 05:34 Platelet Estimate Consistent w auto 03/14/21 05:34 Clumped Platelets Extension Course Coordinator 03/14/21 05:34 Plt Clumps, EDTA Not Reportable 03/14/21 05:34 Large Platelets Few 03/14/21 05:34 Giant Platelets Not Reportable 03/14/21 05:34 Platelet Satelliting Not Reportable 03/14/21 05:34 Plt Morphology Comment Not Reportable 03/14/21 05:34 RBC Morphology Not Reportable 03/14/21 05:34 Dimorphic RBCs Not Reportable 03/14/21 05:34 Polychromasia 1+ 03/14/21 05:34 Hypochromasia 2+ 03/14/21 05:34 Poikilocytosis Not Reportable 03/14/21 05:34 Anisocytosis 2+ 03/14/21 05:34 Microcytosis 1+ 03/14/21 05:34 Macrocytosis Not Reportable 03/14/21 05:34 Spherocytes Not Reportable 03/14/21 05:34 Pappenheimer Bodies Not Reportable 03/14/21 05:34 Sickle Cells Not Reportable 03/14/21 05:34 Target Cells 1+ 03/14/21 05:34 Tear Drop Cells Not Reportable 03/14/21 05:34 Ovalocytes Not Reportable 03/14/21 05:34 Helmet Cells Not Reportable 03/14/21 05:34 [place] Bodies Not Reportable 03/14/21 05:34 [place] Rings Not Reportable 03/14/21 05:34 Obdulio Cells 1+ 03/14/21 05:34 Bite Cells Not Reportable 03/14/21 05:34 Crenated Cell Not Reportable 03/14/21 05:34 Elliptocytes Not Reportable 03/14/21 05:34 Acanthocytes (Spur) Not Reportable 03/14/21 05:34 Rouleaux Not Reportable 03/14/21 05:34 Hemoglobin C Crystals Not Reportable 03/14/21 05:34 Schistocytes Not Reportable 03/14/21 05:34 Malaria parasites Not Reportable 03/14/21 05:34 Wolf Bodies Not Reportable 03/14/21 05:34 Hem Pathologist Commnt Sent to pathology 03/14/21 05:34 PT 23.6 Sec. (12.2-14.9) H 03/19/21 04:00 INR 1.91 (0.87-1.13) H 03/19/21 04:00 APTT 38.7 Sec. (24.2-36.6) H 03/12/21 18:54 D-Dimer > 17820 ng/mlDDU (0-234) H 03/21/21 Unknown ABG pH 7.093 pH Units (7.350-7.450) L* 03/23/21 01:40 POC ABG pCO2 38.3 mmHg (32.0-48.0) 03/18/21 04:14 ABG pCO2 71.1 mm Hg 03/23/21 01:40 POC ABG pO2 73.1 mmHg (83-108) L 03/18/21 04:14 ABG pO2 28.4 mm Hg (80.0-90.0) L* 03/23/21 01:40 POC ABG HCO3 31.6 03/18/21 04:14 ABG HCO3 21.2 mmol/L (20.0-26.0) 03/23/21 01:40 ABG O2 Saturation 26.3 % (95.0-99.0) L 03/23/21 01:40 ABG O2 Content 3.5 (0.0-44) 03/23/21 01:40 POC ABG Base Excess 8.4 03/18/21 04:14 ABG Base Excess -8.8 mmol/L (-2.0-3.0) L 03/23/21 01:40 ABG Hemoglobin 9.6 gm/dl (14.0-18.0) L 03/23/21 01:40 ABG Oxyhemoglobin 93.6 (94-98) L 03/18/21 04:14 ABG Carboxyhemoglobin 1.4 % (0.0-5.0) 03/23/21 01:40 ABG Methemoglobin 0.9 % (0.0-1.5) 03/23/21 01:40 ABG Sodium 140.2 mmol/L (136.0-145.0) 03/18/21 04:14 ABG Potassium 3.3 mmol/L (3.40-4.50) L 03/18/21 04:14 ABG Chloride 102.0 mmol/L (98-107) 03/18/21 04:14 ABG Glucose 193 mg/dL (65-95) H 03/18/21 04:14 Oxyhemoglobin 25.7 % (95.0-99.0) L 03/23/21 01:40 Carboxyhemoglobin 0.7 (0.5-1.5) 03/18/21 04:14 FiO2 100 % 03/23/21 01:40 FiO2 % 40.0 03/18/21 04:14 Sodium 145 mmol/L (137-145) 03/22/21 04:00 Potassium 5.1 mmol/L (3.6-5.0) H 03/22/21 04:00 Chloride 104.8 mmol/L (98-107) 03/22/21 04:00 Carbon Dioxide 18 mmol/L (22-30) L 03/22/21 04:00 Anion Gap 27 mmol/L 03/22/21 04:00 BUN 73 mg/dL (9-20) H 03/22/21 04:00 Creatinine 1.2 mg/dL (0.8-1.3) D 03/22/21 04:00 Estimated GFR > 60 ml/min 03/22/21 04:00 BUN/Creatinine Ratio 61 % 03/22/21 04:00 Glucose 150 mg/dL (75-100) H 03/22/21 23:20 POC Glucose 120 mg/dL (70-105) H 03/23/21 01:33 Calcium 9.2 mg/dL (8.4-10.2) 03/22/21 04:00 Phosphorus 3.50 mg/dL (2.5-4.5) 03/20/21 05:48 Magnesium 2.20 mg/dL (1.7-2.3) 03/20/21 05:48 Ferritin 443.8 ng/mL (30.0-300.0) H 03/21/21 Unknown Total Bilirubin 14.00 mg/dL (0.1-1.2) H 03/22/21 04:00 AST 146 units/L (5-40) H 03/22/21 04:00 ALT 132 units/L (7-56) H 03/22/21 04:00 Alkaline Phosphatase 108 units/L (35-129) 03/22/21 04:00 Ammonia 27.0 umol/L (25-60) 03/20/21 05:48 Lactate Dehydrogenase 693 units/L (91-180) H 03/21/21 Unknown Troponin T < 0.010 ng/mL (0.00-0.029) 03/12/21 18:54 C-Reactive Protein 5.00 mg/dL (0.00-1.30) H 03/21/21 Unknown NT-Pro-B Natriuret Pep 1838 pg/mL (0-900) H 03/12/21 18:54 Total Protein 5.2 g/dL (6.3-8.2) L 03/22/21 04:00 Albumin 1.8 g/dL (3.9-5) L 03/22/21 04:00 Albumin/Globulin Ratio 0.5 % 03/22/21 04:00 Procalcitonin 11.74 ng/mL (<0.15) 03/21/21 10:46 Arterial Blood Glucose 193 mg/dL (65-95) H 03/18/21 04:14 Arterial Blood Ionized Calcium 4.4 mg/dL (4.6-5.3) L 03/18/21 04:14 Urine Color [place]rina (Yellow) 03/21/21 10:20 Urine Turbidity Cloudy (Clear) 03/21/21 10:20 Urine pH 5.0 (5.0-7.0) 03/21/21 10:20 Ur Specific [place] 1.019 (1.003-1.030) 03/21/21 10:20 Urine Protein 30 mg/dl mg/dL (Negative) 03/21/21 10:20 Urine Glucose (UA) Neg mg/dL (Negative) 03/21/21 10:20 Urine Ketones Neg mg/dL (Negative) 03/21/21 10:20 Urine Blood Mod (Negative) 03/21/21 10:20 Urine Nitrite Neg (Negative) 03/21/21 10:20 Urine Bilirubin Sm (Negative) 03/21/21 10:20 Urine Ictotest Positive (Negative) 03/21/21 10:20 Urine Urobilinogen 2.0 mg/dL (<2.0) 03/21/21 10:20 Ur Leukocyte Esterase Neg (Negative) 03/21/21 10:20 Urine WBC (Auto) 24.0 /HPF (0.0-6.0) H 03/21/21 10:20 Urine RBC (Auto) 8.0 /HPF (0.0-6.0) 03/21/21 10:20 U Epithel Cells (Auto) 3.0 /HPF (0-13.0) 03/21/21 10:20 Hyaline Casts 1 /LPF 03/21/21 10:20 Granular Casts 9 /LPF 03/21/21 10:20 Urine Mucus Few /HPF 03/21/21 10:20 Fluid Type Paracentesis 03/21/21 13:30 Fluid Color Yellow 03/21/21 13:30 Fluid Appearance Hazy 03/21/21 13:30 Fluid WBC 15 /mm3 03/21/21 13:30 Fluid RBC 221 /mm3 03/21/21 13:30 Fluid Seg Neutrophils 50.0 % 03/21/21 13:30 Fluid Lymphocytes 35.0 % 03/21/21 13:30 Fluid Monocytes 15.0 % 03/21/21 13:30 Random Vancomycin 5.6 ug/mL (0-40.0) 03/16/21 06:30 Coronavirus (PCR) Positive (Negative) A 03/13/21 Unknown Hepatitis A IgM Ab Non-reactive (NonReactive) 03/14/21 05:34 Hep Bs Antigen Nonreactive (Negative) 03/14/21 05:34 Hep B Core IgM Ab Non-reactive (NonReactive) 03/14/21 05:34 Hepatitis C Antibody Reactive (NonReactive) A 03/14/21 05:34 Blood Type B POSITIVE 03/16/21 08:00 Antibody Screen Negative 03/16/21 08:00 Crossmatch See Detail 03/16/21 08:00 Microbiology: Microbiology 03/21/21 13:30 Ascities Fluid Body Fluid Culture - Preliminary 03/21/21 10:46 Peripheral/Venous Blood Culture - Preliminary NO GROWTH AFTER 72 HOURS 03/21/21 10:46 Peripheral/Venous Blood Culture - Preliminary NO GROWTH AFTER 72 HOURS 03/21/21 13:40 Tracheal Aspirate Sputum Culture - Final 03/21/21 10:20 Urine,Clean Catch Urine Culture - Final NO GROWTH AFTER 48 HOURS [place]/IV: Voiding Method Indwelling Catheter Nutrition/Malnutrition Assess - Dietary Evaluation Nutrition/Malnutrition Findings: Nutrition Notes Start: 03/13/21 17:20 Freq: Status: Discharge Protocol: Document 03/21/21 14:19 GERALD (Rec: 03/21/21 14:47 GERALD [id number]) Nutrition Notes Initial or Follow up Brief Note Current Diet TF remains on hold. Height 5 ft 11 in Weight 61.2 kg [place] Body Weight (kg) 78.18 BMI 18.8 Weight change and time frame No body weight change reported . Weight Status Underweight Subjective/Other Information RD consult on TF resume and tolerance. TF remains on hold. Pt continues on Mechanical Ventilation. As per MD, discussion with family regarding Trach and PEG due to mental satus and poor prognosis. TF resumed 9:30 03/20 @ 20 ml/ hr. TF stopped 02:50 03/21, stomach distended and labored breathing, 250 ml residuals. Incident with necrotic fingers on 03/20. Percent of energy/protein needs met: TF remains on hold. Nutrition Intervention Follow-Up By: 03/23/21 Additional Comments F/U: TF restart/tolerance
--- NOTE | 2021-03-15 14:28 | Gastroenterology Progress Note ---
Assessment and Plan 1. Liver: alcohol cirrhosis with ascites presented w/ COVID PNA and intubated - noted pt lft's initial stable slight decrease ast/alt but increasing t.bili, consistent with shock - noted INR 3.8 - discussed w/ primary team, can discuss acute liver failure with transplant center but given medical issues highly doubt pt can be transferred - conservative management from GI liver standpoint - hemodynamic stability per primary team - if signs bleeding then Vitamin K - avoid hepatotoxic drugs - liver related serologies 2. Pulm: COVID pna intubated - antibiotics per ID - cent per Pulmonary - poor prognosis - will follow Subjective Date of service: 03/15/21 Interval history: - no changes overnight per staff Objective - Constitutional Vitals: Temp Pulse Resp BP Pulse Ox 97.7 F 111 H 33 H 135/77 88 03/15/21 13:40 03/15/21 14:15 03/15/21 13:40 03/15/21 14:15 03/15/21 13:40 General appearance: other (intubated, sedated) - EENT Eyes: PERRL - Respiratory Respiratory: bilateral: rhonchi - Cardiovascular Rhythm: regular Heart Sounds: Present: S1 & S2 - Gastrointestinal General gastrointestinal: Present: soft, non-tender, non-distended - Labs CBC & Chem 7: 03/14/21 05:34 03/15/21 11:17 Labs: Laboratory Results - last 24 hr 03/14/21 03/15/21 03/15/21 18:15 03:42 04:17 ABG pH 7.088 L* ABG pCO2 21.2 ABG pO2 90.7 H ABG HCO3 6.2 L ABG O2 Saturation 92.8 L ABG O2 Content 11.6 ABG Base Excess -21.8 L ABG Hemoglobin 8.9 L ABG Carboxyhemoglobin 1.5 ABG Methemoglobin 0.6 Oxyhemoglobin 90.8 L FiO2 50 Sodium 141 Potassium 6.5 H* D Chloride 103.7 Carbon Dioxide 5 L* D Anion Gap 39 BUN 37 H Creatinine 2.1 H Estimated GFR 32 BUN/Creatinine Ratio 18 Glucose 91 POC Glucose 124 H Calcium 7.4 L Total Bilirubin 2.40 H AST 3911 H ALT 663 H Alkaline Phosphatase 139 H Total Protein 5.8 L Albumin 1.8 L Albumin/Globulin Ratio 0.5 03/15/21 03/15/21 03/15/21 11:17 11:41 13:13 ABG pH ABG pCO2 ABG pO2 ABG HCO3 ABG O2 Saturation ABG O2 Content ABG Base Excess ABG Hemoglobin ABG Carboxyhemoglobin ABG Methemoglobin Oxyhemoglobin FiO2 Sodium 153 H D Potassium 4.1 D Chloride 104.0 Carbon Dioxide 14 L D Anion Gap 39 BUN 31 H Creatinine 1.8 H Estimated GFR 38 BUN/Creatinine Ratio 17 Glucose 262 H POC Glucose 17 L 35 L Calcium 5.8 L* D Total Bilirubin AST ALT Alkaline Phosphatase Total Protein Albumin Albumin/Globulin Ratio 03/15/21 13:53 ABG pH ABG pCO2 ABG pO2 ABG HCO3 ABG O2 Saturation ABG O2 Content ABG Base Excess ABG Hemoglobin ABG Carboxyhemoglobin ABG Methemoglobin Oxyhemoglobin FiO2 Sodium Potassium Chloride Carbon Dioxide Anion Gap BUN Creatinine Estimated GFR BUN/Creatinine Ratio Glucose POC Glucose 40 L Calcium Total Bilirubin AST ALT Alkaline Phosphatase Total Protein Albumin Albumin/Globulin Ratio
--- NOTE | 2021-03-15 14:31 | Progress Note ---
Assessment and Plan 65 y/o male with acute respiratory failure most likely secondary to COVID plus right sided effusion secondary to large volume ascities from liver cirrhosis. 03/15/21: Vascath placed in right groin. ORder theron in the event it is needed during HD. Increase bicarb drip to 200. Hold all sedatives. No acute evidence of bleeding currently. Continue to trend LFT's and COags. Very very guarded prognosis. If not able to tolerate HD to fix acidemia, prognosis becomes gravely poor. 03/14/21: Started patient on bicarb drip and gave a few amps of sodium bicarb. Added vasopressin therapy. Continue Steroids and Remdesivir. Off sedation. Guarded prognosis. 1. Wean Vent settings and sedation as tolerated 2. Remdesivir and Steroids, Pending CRP, actemra 3. Hold on proning now that intubated, not able to paralyze and adequately guru te in the ED 4. Negative fluid balance if possible 5. Needs paracentesis, this should take care of pleural effusion as well. 6. Guarded prognosis. CCT 31 minutes. Subjective Date of service: 03/15/21 Interval history: Remains unresponsive on vent. Needs HD as his acidosis is still not improving. Now maxed on 2 pressors. Objective Vital Signs - 12hr 03/15/21 03/15/21 03/15/21 02:52 03:07 03:16 Temperature 93.6 F L Pulse Rate 101 H 102 H Respiratory 21 Rate Blood Pressure 141/90 O2 Sat by Pulse 79 L Oximetry O2 Sat by Pulse Oximetry [ Bilateral Throughout] 03/15/21 03/15/21 03/15/21 03:31 03:32 03:45 Temperature Pulse Rate 102 H 102 H Respiratory 25 H 26 H 25 H Rate Blood Pressure 161/83 167/78 O2 Sat by Pulse 71 L 100 Oximetry O2 Sat by Pulse Oximetry [ Bilateral Throughout] 03/15/21 03/15/21 03/15/21 04:00 04:10 04:15 Temperature 97.7 F Pulse Rate 103 H 103 H 102 H Respiratory 24 16 24 Rate Blood Pressure 168/67 168/67 168/67 O2 Sat by Pulse 94 Oximetry O2 Sat by Pulse Oximetry [ Bilateral Throughout] 03/15/21 03/15/21 03/15/21 04:30 04:45 05:00 Temperature Pulse Rate 102 H 101 H 102 H Respiratory 23 23 23 Rate Blood Pressure 144/76 145/77 138/74 O2 Sat by Pulse Oximetry O2 Sat by Pulse Oximetry [ Bilateral Throughout] 03/15/21 03/15/21 03/15/21 05:15 05:30 05:45 Temperature Pulse Rate 102 H 102 H 102 H Respiratory 23 24 24 Rate Blood Pressure 132/85 120/61 122/65 O2 Sat by Pulse Oximetry O2 Sat by Pulse Oximetry [ Bilateral Throughout] 03/15/21 03/15/21 03/15/21 06:00 06:09 06:15 Temperature 95.9 F L Pulse Rate 102 H 106 H Respiratory 23 24 Rate Blood Pressure 109/59 116/56 O2 Sat by Pulse Oximetry O2 Sat by Pulse Oximetry [ Bilateral Throughout] 03/15/21 03/15/21 03/15/21 06:30 06:45 07:00 Temperature Pulse Rate 106 H 107 H 109 H Respiratory 24 23 24 Rate Blood Pressure 107/53 97/61 119/68 O2 Sat by Pulse Oximetry O2 Sat by Pulse Oximetry [ Bilateral Throughout] 03/15/21 03/15/21 03/15/21 07:15 07:30 07:45 Temperature Pulse Rate 111 H 111 H 111 H Respiratory 25 H 24 25 H Rate Blood Pressure 112/56 113/57 103/59 O2 Sat by Pulse Oximetry O2 Sat by Pulse Oximetry [ Bilateral Throughout] 03/15/21 03/15/21 03/15/21 08:00 08:15 08:30 Temperature 97.9 F Pulse Rate 109 H 109 H 104 H Respiratory 26 H 27 H 28 H Rate Blood Pressure 111/56 110/57 99/48 O2 Sat by Pulse 90 Oximetry O2 Sat by Pulse Oximetry [ Bilateral Throughout] 03/15/21 03/15/21 03/15/21 08:35 08:45 09:00 Temperature Pulse Rate 110 H 111 H 110 H Respiratory 29 H 27 H Rate Blood Pressure 99/48 115/62 104/56 O2 Sat by Pulse 93 78 L Oximetry O2 Sat by Pulse Oximetry [ Bilateral Throughout] 03/15/21 03/15/21 03/15/21 09:15 09:30 09:45 Temperature Pulse Rate 110 H 114 H 114 H Respiratory 28 H 29 H 28 H Rate Blood Pressure 101/55 117/54 100/52 O2 Sat by Pulse 69 L 87 82 L Oximetry O2 Sat by Pulse Oximetry [ Bilateral Throughout] 03/15/21 03/15/21 03/15/21 10:00 10:15 10:30 Temperature Pulse Rate 113 H 111 H 112 H Respiratory 28 H 29 H 30 H Rate Blood Pressure 98/52 103/53 103/53 O2 Sat by Pulse 83 L 92 93 Oximetry O2 Sat by Pulse Oximetry [ Bilateral Throughout] 03/15/21 03/15/21 03/15/21 10:45 11:00 11:15 Temperature Pulse Rate 114 H 114 H 112 H Respiratory 31 H 30 H 31 H Rate Blood Pressure 91/52 90/56 96/58 O2 Sat by Pulse 90 92 Oximetry O2 Sat by Pulse Oximetry [ Bilateral Throughout] 03/15/21 03/15/21 03/15/21 11:30 11:46 11:54 Temperature 98.4 F Pulse Rate 113 H 112 H Respiratory 29 H 29 H Rate Blood Pressure 96/58 96/58 O2 Sat by Pulse 81 L 85 Oximetry O2 Sat by Pulse Oximetry [ Bilateral Throughout] 03/15/21 03/15/21 03/15/21 12:00 12:15 12:25 Temperature Pulse Rate 108 H 108 H 108 H Respiratory 29 H 32 H Rate Blood Pressure 113/59 99/76 99/76 O2 Sat by Pulse 94 90 Oximetry O2 Sat by Pulse Oximetry [ Bilateral Throughout] 03/15/21 03/15/21 03/15/21 12:30 12:46 13:00 Temperature Pulse Rate 109 H 108 H 107 H Respiratory 33 H 31 H 35 H Rate Blood Pressure 99/76 98/65 98/65 O2 Sat by Pulse 94 93 Oximetry O2 Sat by Pulse Oximetry [ Bilateral Throughout] 03/15/21 03/15/21 03/15/21 13:40 14:00 14:15 Temperature 97.7 F Pulse Rate 104 H 104 H 111 H Respiratory 33 H Rate Blood Pressure 127/79 127/79 135/77 O2 Sat by Pulse Oximetry O2 Sat by Pulse 88 Oximetry [ Bilateral Throughout] CBC and BMP: 03/14/21 05:34 03/15/21 11:17 ABG, PT/INR, D-dimer: ABG ABG pH 7.088 pH Units (7.350-7.450) L* 03/15/21 03:42 POC ABG pCO2 24.6 mmHg (32.0-48.0) L 03/14/21 05:00 ABG pCO2 21.2 mm Hg 03/15/21 03:42 POC ABG pO2 96.2 mmHg (83-108) 03/14/21 05:00 ABG pO2 90.7 mm Hg (80.0-90.0) H 03/15/21 03:42 POC ABG HCO3 8.7 03/14/21 05:00 ABG O2 Saturation 92.8 % (95.0-99.0) L 03/15/21 03:42 PT/INR, D-dimer PT 40.7 Sec. (12.2-14.9) H 03/14/21 10:06 INR 3.85 (0.87-1.13) H 03/14/21 10:06 D-Dimer > 98990 ng/mlDDU (0-234) H 03/14/21 05:34 Abnormal lab findings: Abnormal Labs 03/12/21 03/12/21 03/12/21 18:17 18:54 18:54 WBC 15.4 H Hgb 9.0 L Hct 33.2 L MCV 77 L MCH 21 L MCHC 27 L RDW 28.1 H Seg Neuts % (Manual) 86.0 H Lymphocytes % (Manual) 4.0 L Monocytes % (Manual) 8.0 H Nucleated RBC % Seg Neutrophils # Man 13.2 H Lymphocytes # (Manual) 0.6 L Monocytes # (Manual) 1.2 H PT INR APTT D-Dimer ABG pH POC ABG pCO2 POC ABG pO2 ABG pO2 ABG HCO3 ABG O2 Saturation ABG Base Excess ABG Hemoglobin ABG Oxyhemoglobin ABG Sodium ABG Potassium ABG Glucose Oxyhemoglobin Sodium 136 L Potassium 5.4 H Carbon Dioxide 16 L BUN 32 H Creatinine Glucose 104 H POC Glucose 58 L Calcium Ferritin Total Bilirubin 1.40 H AST 71 H ALT Alkaline Phosphatase 164 H Ammonia Lactate Dehydrogenase C-Reactive Protein NT-Pro-B Natriuret Pep Total Protein Albumin 2.2 L Arterial Blood Glucose Arterial Blood Ionized Calcium Coronavirus (PCR) Hepatitis C Antibody 03/12/21 03/12/21 03/12/21 18:54 18:54 18:54 WBC Hgb Hct MCV MCH MCHC RDW Seg Neuts % (Manual) Lymphocytes % (Manual) Monocytes % (Manual) Nucleated RBC % Seg Neutrophils # Man Lymphocytes # (Manual) Monocytes # (Manual) PT 17.6 H INR 1.31 H APTT 38.7 H D-Dimer > 86926 H ABG pH POC ABG pCO2 POC ABG pO2 ABG pO2 ABG HCO3 ABG O2 Saturation ABG Base Excess ABG Hemoglobin ABG Oxyhemoglobin ABG Sodium ABG Potassium ABG Glucose Oxyhemoglobin Sodium Potassium Carbon Dioxide BUN Creatinine Glucose POC Glucose Calcium Ferritin Total Bilirubin AST ALT Alkaline Phosphatase Ammonia 72.0 H Lactate Dehydrogenase C-Reactive Protein NT-Pro-B Natriuret Pep 1838 H Total Protein Albumin Arterial Blood Glucose Arterial Blood Ionized Calcium Coronavirus (PCR) Hepatitis C Antibody 03/12/21 03/12/21 03/12/21 18:54 19:04 19:21 WBC Hgb Hct MCV MCH MCHC RDW Seg Neuts % (Manual) Lymphocytes % (Manual) Monocytes % (Manual) Nucleated RBC % Seg Neutrophils # Man Lymphocytes # (Manual) Monocytes # (Manual) PT INR APTT D-Dimer ABG pH POC ABG pCO2 POC ABG pO2 ABG pO2 ABG HCO3 ABG O2 Saturation ABG Base Excess ABG Hemoglobin ABG Oxyhemoglobin ABG Sodium ABG Potassium ABG Glucose Oxyhemoglobin Sodium Potassium Carbon Dioxide BUN Creatinine Glucose POC Glucose 30 L Calcium Ferritin 414.7 H Total Bilirubin AST ALT Alkaline Phosphatase Ammonia Lactate Dehydrogenase 287 H C-Reactive Protein 10.80 H NT-Pro-B Natriuret Pep Total Protein Albumin Arterial Blood Glucose Arterial Blood Ionized Calcium Coronavirus (PCR) Hepatitis C Antibody 03/12/21 03/12/21 03/13/21 19:50 20:14 00:05 WBC Hgb Hct MCV MCH MCHC RDW Seg Neuts % (Manual) Lymphocytes % (Manual) Monocytes % (Manual) Nucleated RBC % Seg Neutrophils # Man Lymphocytes # (Manual) Monocytes # (Manual) PT INR APTT D-Dimer ABG pH POC ABG pCO2 POC ABG pO2 314.9 H ABG pO2 ABG HCO3 ABG O2 Saturation ABG Base Excess ABG Hemoglobin ABG Oxyhemoglobin 98.9 H ABG Sodium ABG Potassium ABG Glucose 229 H Oxyhemoglobin Sodium Potassium Carbon Dioxide BUN Creatinine Glucose POC Glucose 24 L 371 H Calcium Ferritin Total Bilirubin AST ALT Alkaline Phosphatase Ammonia Lactate Dehydrogenase C-Reactive Protein NT-Pro-B Natriuret Pep Total Protein Albumin Arterial Blood Glucose 229 H Arterial Blood Ionized Calcium Coronavirus (PCR) Hepatitis C Antibody 03/13/21 03/13/21 03/13/21 02:29 14:32 14:32 WBC 17.3 H Hgb 8.8 L Hct 31.0 L MCV 75 L MCH 22 L MCHC 29 L RDW 27.5 H Seg Neuts % (Manual) 91.0 H Lymphocytes % (Manual) 0 L Monocytes % (Manual) Nucleated RBC % 2.0 H Seg Neutrophils # Man 15.7 H Lymphocytes # (Manual) 0.0 L Monocytes # (Manual) 0.9 H PT INR APTT D-Dimer ABG pH POC ABG pCO2 POC ABG pO2 ABG pO2 ABG HCO3 ABG O2 Saturation ABG Base Excess ABG Hemoglobin ABG Oxyhemoglobin ABG Sodium ABG Potassium ABG Glucose Oxyhemoglobin Sodium Potassium Carbon Dioxide 16 L BUN 35 H Creatinine 1.5 H Glucose 58 L POC Glucose 128 H Calcium 7.8 L Ferritin Total Bilirubin 1.40 H AST 82 H ALT Alkaline Phosphatase 163 H Ammonia Lactate Dehydrogenase C-Reactive Protein NT-Pro-B Natriuret Pep Total Protein 6.2 L Albumin 1.7 L Arterial Blood Glucose Arterial Blood Ionized Calcium Coronavirus (PCR) Hepatitis C Antibody 03/13/21 03/14/21 03/14/21 Unknown 05:00 05:34 WBC 16.9 H Hgb 7.9 L Hct 29.4 L MCV 80 L MCH 22 L MCHC 27 L RDW 28.6 H Seg Neuts % (Manual) 72.0 H Lymphocytes % (Manual) 5.0 L Monocytes % (Manual) Nucleated RBC % 7.0 H Seg Neutrophils # Man 12.2 H Lymphocytes # (Manual) 0.8 L Monocytes # (Manual) PT INR APTT D-Dimer ABG pH 7.167 L POC ABG pCO2 24.6 L POC ABG pO2 ABG pO2 ABG HCO3 ABG O2 Saturation ABG Base Excess ABG Hemoglobin 9.3 L ABG Oxyhemoglobin ABG Sodium 135.2 L ABG Potassium 5.5 H ABG Glucose Oxyhemoglobin Sodium Potassium Carbon Dioxide BUN Creatinine Glucose POC Glucose Calcium Ferritin Total Bilirubin AST ALT Alkaline Phosphatase Ammonia Lactate Dehydrogenase C-Reactive Protein NT-Pro-B Natriuret Pep Total Protein Albumin Arterial Blood Glucose Arterial Blood Ionized Calcium 4.3 L Coronavirus (PCR) Positive A Hepatitis C Antibody 0103/14/21 03/14/21 05:34 05:34 05:34 WBC Hgb Hct MCV MCH MCHC RDW Seg Neuts % (Manual) Lymphocytes % (Manual) Monocytes % (Manual) Nucleated RBC % Seg Neutrophils # Man Lymphocytes # (Manual) Monocytes # (Manual) PT INR APTT D-Dimer > 99912 H ABG pH POC ABG pCO2 POC ABG pO2 ABG pO2 ABG HCO3 ABG O2 Saturation ABG Base Excess ABG Hemoglobin ABG Oxyhemoglobin ABG Sodium ABG Potassium ABG Glucose Oxyhemoglobin Sodium Potassium 5.7 H D Carbon Dioxide BUN 37 H Creatinine Glucose POC Glucose Calcium 7.9 L Ferritin 6545.0 H Total Bilirubin 1.80 H AST 4019 H ALT 501 H Alkaline Phosphatase Ammonia Lactate Dehydrogenase 2367 H C-Reactive Protein 8.40 H NT-Pro-B Natriuret Pep Total Protein 5.8 L Albumin 1.8 L Arterial Blood Glucose Arterial Blood Ionized Calcium Coronavirus (PCR) Hepatitis C Antibody 03/14/21 03/14/21 03/14/21 05:34 07:16 07:18 WBC Hgb Hct MCV MCH MCHC RDW Seg Neuts % (Manual) Lymphocytes % (Manual) Monocytes % (Manual) Nucleated RBC % Seg Neutrophils # Man Lymphocytes # (Manual) Monocytes # (Manual) PT INR APTT D-Dimer ABG pH POC ABG pCO2 POC ABG pO2 ABG pO2 ABG HCO3 ABG O2 Saturation ABG Base Excess ABG Hemoglobin ABG Oxyhemoglobin ABG Sodium ABG Potassium ABG Glucose Oxyhemoglobin Sodium Potassium 5.4 H Carbon Dioxide 12 L BUN 38 H Creatinine 2.5 H D Glucose 29 L* POC Glucose 17 L Calcium 7.6 L Ferritin Total Bilirubin AST ALT Alkaline Phosphatase Ammonia Lactate Dehydrogenase 2218 H C-Reactive Protein 8.30 H NT-Pro-B Natriuret Pep Total Protein Albumin Arterial Blood Glucose Arterial Blood Ionized Calcium Coronavirus (PCR) Hepatitis C Antibody Reactive A 03/14/21 03/14/21 03/14/21 08:08 08:59 10:06 WBC Hgb Hct MCV MCH MCHC RDW Seg Neuts % (Manual) Lymphocytes % (Manual) Monocytes % (Manual) Nucleated RBC % Seg Neutrophils # Man Lymphocytes # (Manual) Monocytes # (Manual) PT 40.7 H INR 3.85 H APTT D-Dimer ABG pH POC ABG pCO2 POC ABG pO2 ABG pO2 ABG HCO3 ABG O2 Saturation ABG Base Excess ABG Hemoglobin ABG Oxyhemoglobin ABG Sodium ABG Potassium ABG Glucose Oxyhemoglobin Sodium Potassium Carbon Dioxide BUN Creatinine Glucose POC Glucose 11 L 144 H Calcium Ferritin Total Bilirubin AST ALT Alkaline Phosphatase Ammonia Lactate Dehydrogenase C-Reactive Protein NT-Pro-B Natriuret Pep Total Protein Albumin Arterial Blood Glucose Arterial Blood Ionized Calcium Coronavirus (PCR) Hepatitis C Antibody 03/14/21 03/15/21 03/15/21 18:15 03:42 04:17 WBC Hgb Hct MCV MCH MCHC RDW Seg Neuts % (Manual) Lymphocytes % (Manual) Monocytes % (Manual) Nucleated RBC % Seg Neutrophils # Man Lymphocytes # (Manual) Monocytes # (Manual) PT INR APTT D-Dimer ABG pH 7.088 L* POC ABG pCO2 POC ABG pO2 ABG pO2 90.7 H ABG HCO3 6.2 L ABG O2 Saturation 92.8 L ABG Base Excess -21.8 L ABG Hemoglobin 8.9 L ABG Oxyhemoglobin ABG Sodium ABG Potassium ABG Glucose Oxyhemoglobin 90.8 L Sodium Potassium 6.5 H* D Carbon Dioxide 5 L* D BUN 37 H Creatinine 2.1 H Glucose POC Glucose 124 H Calcium 7.4 L Ferritin Total Bilirubin 2.40 H AST 3911 H ALT 663 H Alkaline Phosphatase 139 H Ammonia Lactate Dehydrogenase C-Reactive Protein NT-Pro-B Natriuret Pep Total Protein 5.8 L Albumin 1.8 L Arterial Blood Glucose Arterial Blood Ionized Calcium Coronavirus (PCR) Hepatitis C Antibody 03/15/21 03/15/21 03/15/21 11:17 11:41 13:13 WBC Hgb Hct MCV MCH MCHC RDW Seg Neuts % (Manual) Lymphocytes % (Manual) Monocytes % (Manual) Nucleated RBC % Seg Neutrophils # Man Lymphocytes # (Manual) Monocytes # (Manual) PT INR APTT D-Dimer ABG pH POC ABG pCO2 POC ABG pO2 ABG pO2 ABG HCO3 ABG O2 Saturation ABG Base Excess ABG Hemoglobin ABG Oxyhemoglobin ABG Sodium ABG Potassium ABG Glucose Oxyhemoglobin Sodium 153 H D Potassium Carbon Dioxide 14 L D BUN 31 H Creatinine 1.8 H Glucose 262 H POC Glucose 17 L 35 L Calcium 5.8 L* D Ferritin Total Bilirubin AST ALT Alkaline Phosphatase Ammonia Lactate Dehydrogenase C-Reactive Protein NT-Pro-B Natriuret Pep Total Protein Albumin Arterial Blood Glucose Arterial Blood Ionized Calcium Coronavirus (PCR) Hepatitis C Antibody 03/15/21 13:53 WBC Hgb Hct MCV MCH MCHC RDW Seg Neuts % (Manual) Lymphocytes % (Manual) Monocytes % (Manual) Nucleated RBC % Seg Neutrophils # Man Lymphocytes # (Manual) Monocytes # (Manual) PT INR APTT D-Dimer ABG pH POC ABG pCO2 POC ABG pO2 ABG pO2 ABG HCO3 ABG O2 Saturation ABG Base Excess ABG Hemoglobin ABG Oxyhemoglobin ABG Sodium ABG Potassium ABG Glucose Oxyhemoglobin Sodium Potassium Carbon Dioxide BUN Creatinine Glucose POC Glucose 40 L Calcium Ferritin Total Bilirubin AST ALT Alkaline Phosphatase Ammonia Lactate Dehydrogenase C-Reactive Protein NT-Pro-B Natriuret Pep Total Protein Albumin Arterial Blood Glucose Arterial Blood Ionized Calcium Coronavirus (PCR) Hepatitis C Antibody
[2021-03-15] MEDS: fentaNYL 100 MCG/2 ML INJ IV PRN (22:57)
[2021-03-16] MEDS: ALBUMIN HUMAN 25% (25 GM/100 ML) INJ IV SCH ×2 (03:03→13:23)
--- NOTE | 2021-03-16 04:13 | XRay Report ---
CHEST - 1 VIEW INDICATION: follow up respiratory failure COMPARISON: Yesterday FINDINGS: SUPPORT DEVICES: Stable support device positioning. HEART: Stable cardiomediastinal silhouette. LUNGS/PLEURA: Persistent moderate patchy airspace disease in the right lung. ADDITIONAL FINDINGS: None. IMPRESSION: Unchanged exam. Signer Name: Sean Reed MD Signed: 03/16/2021 4:08 AM Workstation Name: [id number]
[2021-03-16] MEDS: SODIUM BICARBONATE 150 MEQ in DEXTROSE 5% IN WATER 1,000 ML IV SCH (05:58)
[2021-03-16 06:46] LABS: Mean Corpuscular HGB Conc 29 % (32-34); Mean Corpuscular Volume 75 fl (84-94); Red Blood Count 2.54 M/mm3 (3.65-5.03)
[2021-03-16 07:02] LABS: Albumin 2.5 g/dL (3.9-5); Calcium 7.3 mg/dL (8.4-10.2)
[2021-03-16 07:05] LABS: Hemoglobin 5.5 gm/dl (11.8-15.2); INR 6.13 (0.87-1.13)
[2021-03-16 07:06] LABS: Hematocrit 19.1 % (35.5-45.6); Red Cell Distribution Width 26.7 % (13.2-15.2)
[2021-03-16] MEDS ORDERED: SODIUM CHLORIDE 0.9% 500 ML 500 ML IV NR (07:39)
[2021-03-16] MEDS ORDERED: POTASSIUM CHLORIDE 20 MEQ PACKET FEEDTUBE SCH (08:30)
[2021-03-16] MEDS ORDERED: PHYTONADIONE(ADULT ONLY) 10 MG in SODIUM CHLORIDE 0.9% 50 ML IV SCH (08:30)
[2021-03-16] MEDS ORDERED: MAGNESIUM SULFATE 4 GM/100 ML BAG IV SCH (08:30)
[2021-03-16 08:44] LABS: Platelet Count 36 K/mm3 (140-440)
--- NOTE | 2021-03-16 08:57 | Consultation ---
History of Present Illness Consult date: 03/16/21 Reason for Consult: altered mentation, COVID-19 pneumonia History of present illness: Abdominal pain Respiratory failure History of present illness: 65-year-old -Irish male with past medical history of ascites, cirrhosis and anemia, rectal bleed was brought to the emergency room because of shortness of breath, abdominal distention, and the patient is positive for COVID-19. Patient was admitted here on 02/28 until 03/04. When he visited on 02/28 the patient was found to have liver cirrhosis causing ascites, as well as anemia and he was having some intermittent rectal bleeding. During that last admission the patient had a paracentesis in which they removed 13 L of fluid, and he had a colonoscopy done with GI. Patient's daughter says that he tested positive for COVID-19 last week. Patient is was AAO x3 on admission The patient was seen in triage and was found to have a pulse ox of about 70% on room air. the patient is seen with hypoxia, tachypnea, tachycardia and appears in respiratory distress. We were able to get the patient back to room #7 we placed him on BiPAP. He was found to have hypoglycemia with a blood sugar of 50 and was given an amp of D50. When rechecked his blood sugar it was down to 25 so 2 more amps of D50 were ordered and then given. The patient did not tolerate the BiPAP. He kept pulling off the BiPAP mask and having oxygen desaturation. For this reason the patient was intubated as per the procedure section. Chest x-ray shows bilateral pneumonia and right-sided large pleural effusion. Abdominal x- ray shows what appears to be a large volume of ascites. The patient's labs have been remarkable for a leukocytosis of 15,000, anemia with a hemoglobin of 9, slightly elevated coags without anticoagulation, mild renal insufficiency, elevated proBNP and elevated inflammatory markers consistent with COVID-19 infection. The patient has been given IV antibiotics, IV Decadron. He will be admitted to the hospital for further evaluation and treatment neurology consulted for evaluation of ultered mental status unresponsiveness to command , he is intubated in ICU no sedation Past History Past Medical History: anemia, hepatitis, liver disease, renal failure (Tobacco abuser), other (Alcohol abuse, ascites, anemia, COVID) Medications and Allergies Allergies Allergy/AdvReac Type Severity Reaction Status Date / Time No Known Allergies Allergy Verified 02/27/21 20:19 Home Medications Medication Instructions Recorded Confirmed Last Taken Type Ferrous Sulfate [Feosol 325 MG tab] 325 mg PO BID #30 tablet 03/04/21 Unknown Rx Folic Acid [Folvite] 1 mg PO QDAY #30 tablet 03/04/21 Unknown Rx Spironolactone [Aldactone] 50 mg PO QDAY #30 tablet 03/04/21 Unknown Rx Thiamine [Vitamin B-1] 100 mg PO QDAY #30 tablet 03/04/21 Unknown Rx Active Meds: Active Medications Acetaminophen (Acetaminophen 325 Mg Tab) 650 mg PO Q4H PRN PRN Reason: Pain MILD(1-3)/Fever >100.5/KHAN Albuterol (Albuterol 2.5 Mg/3 Ml Nebu) 2.5 mg IH Q4HRT PRN PRN Reason: Shortness Of Breath Albuterol/Ipratropium (Ipratropium/Albuterol Sulfate 3 Ml Ampul.Neb) 1 ampul IH Q6HRT STEPHEN Famotidine (Famotidine 20 Mg/2 Ml Inj) 20 mg IV BID STEPHEN Famotidine (Famotidine 20 Mg/2 Ml Inj) 20 mg IV BID STEPHEN Ferrous Sulfate (Ferrous Sulfate 325 Mg Tab) 325 mg PO BID STEPHEN Folic Acid (Folic Acid 1 Mg Tab) 1 mg PO QDAY [facility] Hydromorphone HCl (Hydromorphone 1 Mg/1 Ml Inj) 0.5 mg IV Q3H PRN PRN Reason: Pain , Severe (7-10) Hydrophilic Ointment (Lip Therapy Vaseline) 1 applic TP Q2HR PRN PRN Reason: Dry Lips Sodium Chloride (Nacl 0.9% 1000 Ml) 1,000 mls @ 125 mls/hr IV ONCE ONE Stop: 03/13/21 03:10 Last Admin: 03/12/21 19:23 Dose: 125 mls/hr Midazolam HCl 100 mg/ Sodium (Chloride) 100 mls @ 2 mls/hr IV TITR STEPHEN; Protoco l Azithromycin (Zithromax/Ns) 500 mg in 250 mls @ 250 mls/hr IV ONCE ONE; Protocol Stop: 03/12/21 21:52 Dextrose/Sodium Chloride (D5ns) 1,000 mls @ 75 mls/hr IV DIRECT STEPHEN Ceftriaxone Sodium (Rocephin/Ns 2 Gm/100 Ml) 2 gm in 100 mls @ 200 mls/hr IV Q24H STEPHEN; Protocol Azithromycin (Zithromax/Ns) 500 mg in 250 mls @ 250 mls/hr IV Q24H STEPHEN; Protocol Midazolam HCl (Midazolam 2 Mg/2 Ml Inj) 2 mg IV Q10MIN PRN PRN Reason: Sedation Morphine Sulfate (Morphine 2 Mg/1 Ml Inj) 2 mg IV Q4H PRN PRN Reason: Pain, Moderate (4-6) Multi-Ingred Cream/Lotion/Oil/Oint (Mineral Oil/Petrolatum, White Ophth Oint 3.5 Gm) 1 applic OU Q4HR PRN PRN Reason: Dry Eye(s) Ondansetron HCl (Ondansetron 4 Mg/2 Ml Inj) 4 mg IV Q8H PRN PRN Reason: Nausea And Vomiting Senna/Docusate Sodium (Sennosides/Docusate Sodium 8.6/50 Mg Tab) 1 tab FEEDTUBE BID STEPHEN Sodium Chloride (Sodium Chloride 0.9% 10 Ml Flush Syringe) 10 ml IV BID STEPHEN Sodium Chloride (Sodium Chloride 0.9% 10 Ml Flush Syringe) 10 ml IV PRN PRN PRN Reason: LINE FLUSH Spironolactone (Spironolactone 50 Mg Tab) 50 mg PO QDAY STEPHEN Thiamine HCl (Thiamine 100 Mg Tab) 100 mg PO QDAY [facility] Review of Systems Cardiovascular: shortness of breath, dyspnea on exertion Respiratory: shortness of breath, dyspnea on exertion Gastrointestinal: abdominal pain Past History Past Medical History: anemia, hepatitis, liver disease, renal failure (Tobacco abuser), other (Alcohol abuse, ascites, anemia, COVID) Family history: hypertension Medications and Allergies Allergies Allergy/AdvReac Type Severity Reaction Status Date / Time No Known Allergies Allergy Verified 02/27/21 20:19 Home Medications Medication Instructions Recorded Confirmed Last Taken Type Ferrous Sulfate [Feosol 325 MG tab] 325 mg PO BID #30 tablet 03/04/21 Unknown Rx Folic Acid [Folvite] 1 mg PO QDAY #30 tablet 03/04/21 Unknown Rx Spironolactone [Aldactone] 50 mg PO QDAY #30 tablet 03/04/21 Unknown Rx Thiamine [Vitamin B-1] 100 mg PO QDAY #30 tablet 03/04/21 Unknown Rx Active Meds: Active Medications Acetaminophen (Acetaminophen 325 Mg Tab) 650 mg PO Q4H PRN PRN Reason: Pain MILD(1-3)/Fever >100.5/KHAN Albumin Human (Albumin Human 25% (25 Gm/100 Ml) Inj) 25 gm IV Q8H [facility] Stop: 03/17/21 02:31 Last Admin: 03/16/21 03:03 Dose: 25 gm Albuterol (Albuterol 2.5 Mg/3 Ml Nebu) 2.5 mg IH Q4HRT PRN PRN Reason: Shortness Of Breath Dexamethasone (Dexamethasone 4 Mg/Ml Vial) 6 mg IV DAILY [facility] Stop: 03/22/21 10:01 Last Admin: 03/15/21 09:28 Dose: 6 mg Dextrose (Dextrose 50% In Water (25gm) 50 Ml Syringe) 0 ml IV Q30MIN PRN; Protocol PRN Reason: Hypoglycemia Last Admin: 03/15/21 13:34 Dose: 50 ml Famotidine (Famotidine 20 Mg/2 Ml Inj) 10 mg IV BID [facility] Last Admin: 03/15/21 21:39 Dose: 10 mg Fentanyl (Fentanyl 100 Mcg/2 Ml Inj) 50 mcg IV Q10MIN PRN PRN Reason: ANALGESIA Last Admin: 03/15/21 22:57 Dose: 50 mcg Ferrous Sulfate (Ferrous Sulfate 300 Mg (60mg Elemental Iron) / 5 Ml Oral Liqd) 300 mg PO BID [facility] Last Admin: 03/15/21 21:38 Dose: 300 mg Folic Acid (Folic Acid 1 Mg Tab) 1 mg PO QDAY [facility] Last Admin: 03/15/21 09:28 Dose: 1 mg Hydromorphone HCl (Hydromorphone 1 Mg/1 Ml Inj) 0.5 mg IV Q3H PRN PRN Reason: Pain , Severe (7-10) Hydrophilic Ointment (Lip Therapy Vaseline) 1 applic TP Q2HR PRN PRN Reason: Dry Lips Ceftriaxone Sodium (Rocephin/Ns 2 Gm/100 Ml) 2 gm in 100 mls @ 200 mls/hr IV Q24HR [facility]; Protocol Last Admin: 03/15/21 09:29 Dose: 200 mls/hr Fentanyl Citrate (Fentanyl Drip Premix) 2,000 mcg in 100 mls @ 3.402 mls/hr IV TITR [facility]; Protocol NORepinephrine/NS 8 MG-250 ML (Norepinephrine/Ns 8 Mg-250 Ml (Double Conc)) 8 mg in 250 mls @ 3.75 mls/hr IV TITRATE [facility]; Protocol Last Titration: 03/16/21 01:18 Dose: 0 mcg/min, 0 mls/hr Vasopressin 20 unit/ Sodium (Chloride) 101 mls @ 9.09 mls/hr IV TITR [facility]; Protocol Last Titration: 03/15/21 23:55 Dose: 0 units/min, 0 mls/hr Sodium Chloride (Nacl 0.9%) 100 mls @ 999 mls/hr IV VICKEY PRN PRN Reason: Hypotension Phenylephrine HCl 100 mg/ (Sodium Chloride) 100 mls @ 3 mls/hr IV TITR [facility]; Protocol Phytonadione 10 mg/ Sodium (Chloride) 51 mls @ 100 mls/hr IV ONCE@0830 [facility] Stop: 03/16/21 12:30 Sodium Chloride (Nacl 0.9% 500 Ml) 500 mls @ 0 mls/hr IV ONCE NR Stop: 03/16/21 23:59 Magnesium Sulfate (Magnesium Sulfate 4gm/100ml) 4 gm in 100 mls @ 25 mls/hr IV ONCE@0830 [facility] Stop: 03/16/21 12:30 Vancomycin HCl (Vancomycin/Ns 1 Gm/250 Ml) 1 gm in 250 mls @ 166.667 mls/hr IV Q24HR [facility] Multi-Ingred Cream/Lotion/Oil/Oint (Mineral Oil/Petrolatum, White Ophth Oint 3.5 Gm) 1 applic OU Q4HR PRN PRN Reason: Dry Eye(s) Ondansetron HCl (Ondansetron 4 Mg/2 Ml Inj) 4 mg IV Q8H PRN PRN Reason: Nausea And Vomiting Potassium Chloride (Potassium Chloride 20 Meq Packet) 20 meq FEEDTUBE ONCE@0830 [facility] Stop: 03/16/21 12:30 Senna/Docusate Sodium (Sennosides/Docusate Sodium 8.6/50 Mg Tab) 1 tab FEEDTUBE BID [facility] Last Admin: 03/15/21 21:39 Dose: Not Given Sodium Chloride (Sodium Chloride 0.9% 10 Ml Flush Syringe) 10 ml IV BID [facility] Last Admin: 03/15/21 21:39 Dose: 10 ml Sodium Chloride (Sodium Chloride 0.9% 10 Ml Flush Syringe) 10 ml IV PRN PRN PRN Reason: LINE FLUSH Sodium Chloride (Sodium Chloride 0.9% 50 Ml Ivpb) 50 ml IV Q24HR@2100 [facility] Stop: 03/17/21 21:01 Last Admin: 03/15/21 21:38 Dose: 50 ml Thiamine HCl (Thiamine 100 Mg Tab) 100 mg PO QDAY [facility] Last Admin: 03/15/21 09:28 Dose: 100 mg Physical Examination - Vital Signs Vital Signs: Vital Signs Pulse Resp BP Pulse Ox 127 H 16 127/81 75 L 03/12/21 18:20 03/12/21 18:20 03/12/21 18:20 03/12/21 18:20 - Constitutional General appearance: comfortable, other (unresponsive intubated not sedated) - EENT EENT: Present: PERRL, mucous membranes moist - Respiratory Respiratory: Present: lungs clear, rhonchi - Cardiovascular Cardiovascular: Present: regular rate, normal S1, normal S2 Extremities: Present: no peripheral edema bilatateraly, no clubbing, cyanosis - Gastrointestinal Gastrointestinal: Present: normoactive bowel sounds - Integumentary Integumentary: Present: normal - Neurologic Cranial nerve examination: PERRL, EOMI, other (absent gag and corneal reflexes bilateral,) Sensorimotor examination: other (no movment to stimuli in both sides) Results - Laboratory Findings CBC and BMP: 03/16/21 06:30 03/16/21 06:30 Abnormal Lab Findings: Abnormal Labs 03/12/21 03/12/21 03/12/21 18:17 18:54 18:54 WBC 15.4 H RBC Hgb 9.0 L Hct 33.2 L MCV 77 L MCH 21 L MCHC 27 L RDW 28.1 H Plt Count Seg Neuts % (Manual) 86.0 H Lymphocytes % (Manual) 4.0 L Monocytes % (Manual) 8.0 H Nucleated RBC % Seg Neutrophils # Man 13.2 H Lymphocytes # (Manual) 0.6 L Monocytes # (Manual) 1.2 H PT INR APTT D-Dimer ABG pH POC ABG pCO2 POC ABG pO2 ABG pO2 ABG HCO3 ABG O2 Saturation ABG Base Excess ABG Hemoglobin ABG Oxyhemoglobin ABG Sodium ABG Potassium ABG Glucose Oxyhemoglobin Sodium 136 L Potassium 5.4 H Carbon Dioxide 16 L BUN 32 H Creatinine Glucose 104 H POC Glucose 58 L Calcium Magnesium Ferritin Total Bilirubin 1.40 H AST 71 H ALT Alkaline Phosphatase 164 H Ammonia Lactate Dehydrogenase C-Reactive Protein NT-Pro-B Natriuret Pep Total Protein Albumin 2.2 L Arterial Blood Glucose Arterial Blood Ionized Calcium Coronavirus (PCR) Hepatitis C Antibody Crossmatch 03/12/21 03/12/21 03/12/21 18:54 18:54 18:54 WBC RBC Hgb Hct MCV MCH MCHC RDW Plt Count Seg Neuts % (Manual) Lymphocytes % (Manual) Monocytes % (Manual) Nucleated RBC % Seg Neutrophils # Man Lymphocytes # (Manual) Monocytes # (Manual) PT 17.6 H INR 1.31 H APTT 38.7 H D-Dimer > 20948 H ABG pH POC ABG pCO2 POC ABG pO2 ABG pO2 ABG HCO3 ABG O2 Saturation ABG Base Excess ABG Hemoglobin ABG Oxyhemoglobin ABG Sodium ABG Potassium ABG Glucose Oxyhemoglobin Sodium Potassium Carbon Dioxide BUN Creatinine Glucose POC Glucose Calcium Magnesium Ferritin Total Bilirubin AST ALT Alkaline Phosphatase Ammonia 72.0 H Lactate Dehydrogenase C-Reactive Protein NT-Pro-B Natriuret Pep 1838 H Total Protein Albumin Arterial Blood Glucose Arterial Blood Ionized Calcium Coronavirus (PCR) Hepatitis C Antibody Crossmatch 03/12/21 03/12/21 03/12/21 18:54 19:04 19:21 WBC RBC Hgb Hct MCV MCH MCHC RDW Plt Count Seg Neuts % (Manual) Lymphocytes % (Manual) Monocytes % (Manual) Nucleated RBC % Seg Neutrophils # Man Lymphocytes # (Manual) Monocytes # (Manual) PT INR APTT D-Dimer ABG pH POC ABG pCO2 POC ABG pO2 ABG pO2 ABG HCO3 ABG O2 Saturation ABG Base Excess ABG Hemoglobin ABG Oxyhemoglobin ABG Sodium ABG Potassium ABG Glucose Oxyhemoglobin Sodium Potassium Carbon Dioxide BUN Creatinine Glucose POC Glucose 30 L Calcium Magnesium Ferritin 414.7 H Total Bilirubin AST ALT Alkaline Phosphatase Ammonia Lactate Dehydrogenase 287 H C-Reactive Protein 10.80 H NT-Pro-B Natriuret Pep Total Protein Albumin Arterial Blood Glucose Arterial Blood Ionized Calcium Coronavirus (PCR) Hepatitis C Antibody Crossmatch 03/12/21 03/12/21 03/13/21 19:50 20:14 00:05 WBC RBC Hgb Hct MCV MCH MCHC RDW Plt Count Seg Neuts % (Manual) Lymphocytes % (Manual) Monocytes % (Manual) Nucleated RBC % Seg Neutrophils # Man Lymphocytes # (Manual) Monocytes # (Manual) PT INR APTT D-Dimer ABG pH POC ABG pCO2 POC ABG pO2 314.9 H ABG pO2 ABG HCO3 ABG O2 Saturation ABG Base Excess ABG Hemoglobin ABG Oxyhemoglobin 98.9 H ABG Sodium ABG Potassium ABG Glucose 229 H Oxyhemoglobin Sodium Potassium Carbon Dioxide BUN Creatinine Glucose POC Glucose 24 L 371 H Calcium Magnesium Ferritin Total Bilirubin AST ALT Alkaline Phosphatase Ammonia Lactate Dehydrogenase C-Reactive Protein NT-Pro-B Natriuret Pep Total Protein Albumin Arterial Blood Glucose 229 H Arterial Blood Ionized Calcium Coronavirus (PCR) Hepatitis C Antibody Crossmatch 03/13/21 03/13/21 03/13/21 02:29 14:32 14:32 WBC 17.3 H RBC Hgb 8.8 L Hct 31.0 L MCV 75 L MCH 22 L MCHC 29 L RDW 27.5 H Plt Count Seg Neuts % (Manual) 91.0 H Lymphocytes % (Manual) 0 L Monocytes % (Manual) Nucleated RBC % 2.0 H Seg Neutrophils # Man 15.7 H Lymphocytes # (Manual) 0.0 L Monocytes # (Manual) 0.9 H PT INR APTT D-Dimer ABG pH POC ABG pCO2 POC ABG pO2 ABG pO2 ABG HCO3 ABG O2 Saturation ABG Base Excess ABG Hemoglobin ABG Oxyhemoglobin ABG Sodium ABG Potassium ABG Glucose Oxyhemoglobin Sodium Potassium Carbon Dioxide 16 L BUN 35 H Creatinine 1.5 H Glucose 58 L POC Glucose 128 H Calcium 7.8 L Magnesium Ferritin Total Bilirubin 1.40 H AST 82 H ALT Alkaline Phosphatase 163 H Ammonia Lactate Dehydrogenase C-Reactive Protein NT-Pro-B Natriuret Pep Total Protein 6.2 L Albumin 1.7 L Arterial Blood Glucose Arterial Blood Ionized Calcium Coronavirus (PCR) Hepatitis C Antibody Crossmatch 03/13/21 03/14/21 03/14/21 Unknown 05:00 05:34 WBC 16.9 H RBC Hgb 7.9 L Hct 29.4 L MCV 80 L MCH 22 L MCHC 27 L RDW 28.6 H Plt Count Seg Neuts % (Manual) 72.0 H Lymphocytes % (Manual) 5.0 L Monocytes % (Manual) Nucleated RBC % 7.0 H Seg Neutrophils # Man 12.2 H Lymphocytes # (Manual) 0.8 L Monocytes # (Manual) PT INR APTT D-Dimer ABG pH 7.167 L POC ABG pCO2 24.6 L POC ABG pO2 ABG pO2 ABG HCO3 ABG O2 Saturation ABG Base Excess ABG Hemoglobin 9.3 L ABG Oxyhemoglobin ABG Sodium 135.2 L ABG Potassium 5.5 H ABG Glucose Oxyhemoglobin Sodium Potassium Carbon Dioxide BUN Creatinine Glucose POC Glucose Calcium Magnesium Ferritin Total Bilirubin AST ALT Alkaline Phosphatase Ammonia Lactate Dehydrogenase C-Reactive Protein NT-Pro-B Natriuret Pep Total Protein Albumin Arterial Blood Glucose Arterial Blood Ionized Calcium 4.3 L Coronavirus (PCR) Positive A Hepatitis C Antibody Crossmatch 03/14/21 03/14/21 03/14/21 05:34 05:34 05:34 WBC RBC Hgb Hct MCV MCH MCHC RDW Plt Count Seg Neuts % (Manual) Lymphocytes % (Manual) Monocytes % (Manual) Nucleated RBC % Seg Neutrophils # Man Lymphocytes # (Manual) Monocytes # (Manual) PT INR APTT D-Dimer > 80051 H ABG pH POC ABG pCO2 POC ABG pO2 ABG pO2 ABG HCO3 ABG O2 Saturation ABG Base Excess ABG Hemoglobin ABG Oxyhemoglobin ABG Sodium ABG Potassium ABG Glucose Oxyhemoglobin Sodium Potassium 5.7 H D Carbon Dioxide BUN 37 H Creatinine Glucose POC Glucose Calcium 7.9 L Magnesium Ferritin 6545.0 H Total Bilirubin 1.80 H AST 4019 H ALT 501 H Alkaline Phosphatase Ammonia Lactate Dehydrogenase 2367 H C-Reactive Protein 8.40 H NT-Pro-B Natriuret Pep Total Protein 5.8 L Albumin 1.8 L Arterial Blood Glucose Arterial Blood Ionized Calcium Coronavirus (PCR) Hepatitis C Antibody Crossmatch 03/14/21 03/14/21 03/14/21 05:34 07:16 07:18 WBC RBC Hgb Hct MCV MCH MCHC RDW Plt Count Seg Neuts % (Manual) Lymphocytes % (Manual) Monocytes % (Manual) Nucleated RBC % Seg Neutrophils # Man Lymphocytes # (Manual) Monocytes # (Manual) PT INR APTT D-Dimer ABG pH POC ABG pCO2 POC ABG pO2 ABG pO2 ABG HCO3 ABG O2 Saturation ABG Base Excess ABG Hemoglobin ABG Oxyhemoglobin ABG Sodium ABG Potassium ABG Glucose Oxyhemoglobin Sodium Potassium 5.4 H Carbon Dioxide 12 L BUN 38 H Creatinine 2.5 H D Glucose 29 L* POC Glucose 17 L Calcium 7.6 L Magnesium Ferritin Total Bilirubin AST ALT Alkaline Phosphatase Ammonia Lactate Dehydrogenase 2218 H C-Reactive Protein 8.30 H NT-Pro-B Natriuret Pep Total Protein Albumin Arterial Blood Glucose Arterial Blood Ionized Calcium Coronavirus (PCR) Hepatitis C Antibody Reactive A Crossmatch 03/14/21 03/14/21 03/14/21 08:08 08:59 10:06 WBC RBC Hgb Hct MCV MCH MCHC RDW Plt Count Seg Neuts % (Manual) Lymphocytes % (Manual) Monocytes % (Manual) Nucleated RBC % Seg Neutrophils # Man Lymphocytes # (Manual) Monocytes # (Manual) PT 40.7 H INR 3.85 H APTT D-Dimer ABG pH POC ABG pCO2 POC ABG pO2 ABG pO2 ABG HCO3 ABG O2 Saturation ABG Base Excess ABG Hemoglobin ABG Oxyhemoglobin ABG Sodium ABG Potassium ABG Glucose Oxyhemoglobin Sodium Potassium Carbon Dioxide BUN Creatinine Glucose POC Glucose 11 L 144 H Calcium Magnesium Ferritin Total Bilirubin AST ALT Alkaline Phosphatase Ammonia Lactate Dehydrogenase C-Reactive Protein NT-Pro-B Natriuret Pep Total Protein Albumin Arterial Blood Glucose Arterial Blood Ionized Calcium Coronavirus (PCR) Hepatitis C Antibody Crossmatch 03/14/21 03/15/21 03/15/21 18:15 03:42 04:17 WBC RBC Hgb Hct MCV MCH MCHC RDW Plt Count Seg Neuts % (Manual) Lymphocytes % (Manual) Monocytes % (Manual) Nucleated RBC % Seg Neutrophils # Man Lymphocytes # (Manual) Monocytes # (Manual) PT INR APTT D-Dimer ABG pH 7.088 L* POC ABG pCO2 POC ABG pO2 ABG pO2 90.7 H ABG HCO3 6.2 L ABG O2 Saturation 92.8 L ABG Base Excess -21.8 L ABG Hemoglobin 8.9 L ABG Oxyhemoglobin ABG Sodium ABG Potassium ABG Glucose Oxyhemoglobin 90.8 L Sodium Potassium 6.5 H* D Carbon Dioxide 5 L* D BUN 37 H Creatinine 2.1 H Glucose POC Glucose 124 H Calcium 7.4 L Magnesium Ferritin Total Bilirubin 2.40 H AST 3911 H ALT 663 H Alkaline Phosphatase 139 H Ammonia Lactate Dehydrogenase C-Reactive Protein NT-Pro-B Natriuret Pep Total Protein 5.8 L Albumin 1.8 L Arterial Blood Glucose Arterial Blood Ionized Calcium Coronavirus (PCR) Hepatitis C Antibody Crossmatch 03/15/21 03/15/21 03/15/21 11:17 11:41 13:13 WBC RBC Hgb Hct MCV MCH MCHC RDW Plt Count Seg Neuts % (Manual) Lymphocytes % (Manual) Monocytes % (Manual) Nucleated RBC % Seg Neutrophils # Man Lymphocytes # (Manual) Monocytes # (Manual) PT INR APTT D-Dimer ABG pH POC ABG pCO2 POC ABG pO2 ABG pO2 ABG HCO3 ABG O2 Saturation ABG Base Excess ABG Hemoglobin ABG Oxyhemoglobin ABG Sodium ABG Potassium ABG Glucose Oxyhemoglobin Sodium 153 H D Potassium Carbon Dioxide 14 L D BUN 31 H Creatinine 1.8 H Glucose 262 H POC Glucose 17 L 35 L Calcium 5.8 L* D Magnesium Ferritin Total Bilirubin AST ALT Alkaline Phosphatase Ammonia Lactate Dehydrogenase C-Reactive Protein NT-Pro-B Natriuret Pep Total Protein Albumin Arterial Blood Glucose Arterial Blood Ionized Calcium Coronavirus (PCR) Hepatitis C Antibody Crossmatch 03/15/21 03/15/21 03/16/21 13:53 23:52 06:30 WBC RBC Hgb Hct MCV MCH MCHC RDW Plt Count Seg Neuts % (Manual) Lymphocytes % (Manual) Monocytes % (Manual) Nucleated RBC % Seg Neutrophils # Man Lymphocytes # (Manual) Monocytes # (Manual) PT INR APTT D-Dimer ABG pH POC ABG pCO2 POC ABG pO2 ABG pO2 ABG HCO3 ABG O2 Saturation ABG Base Excess ABG Hemoglobin ABG Oxyhemoglobin ABG Sodium ABG Potassium ABG Glucose Oxyhemoglobin Sodium 146 H Potassium 3.1 L D Carbon Dioxide BUN 27 H Creatinine 1.8 H Glucose 140 H POC Glucose 40 L 142 H Calcium 7.3 L D Magnesium Ferritin Total Bilirubin 3.10 H AST 2233 H ALT 409 H Alkaline Phosphatase 156 H Ammonia Lactate Dehydrogenase C-Reactive Protein NT-Pro-B Natriuret Pep Total Protein 5.2 L Albumin 2.5 L Arterial Blood Glucose Arterial Blood Ionized Calcium Coronavirus (PCR) Hepatitis C Antibody Crossmatch 03/16/21 03/16/21 03/16/21 06:30 06:30 06:30 WBC 15.5 H RBC 2.54 L Hgb 5.5 L* Hct 19.1 L* D MCV 75 L MCH 21 L MCHC 29 L RDW 26.7 H Plt Count 36 L Seg Neuts % (Manual) Lymphocytes % (Manual) Monocytes % (Manual) Nucleated RBC % Seg Neutrophils # Man Lymphocytes # (Manual) Monocytes # (Manual) PT 58.3 H INR 6.13 H* APTT D-Dimer ABG pH POC ABG pCO2 POC ABG pO2 ABG pO2 ABG HCO3 ABG O2 Saturation ABG Base Excess ABG Hemoglobin ABG Oxyhemoglobin ABG Sodium ABG Potassium ABG Glucose Oxyhemoglobin Sodium Potassium Carbon Dioxide BUN Creatinine Glucose POC Glucose Calcium Magnesium 1.60 L Ferritin Total Bilirubin AST ALT Alkaline Phosphatase Ammonia Lactate Dehydrogenase C-Reactive Protein NT-Pro-B Natriuret Pep Total Protein Albumin Arterial Blood Glucose Arterial Blood Ionized Calcium Coronavirus (PCR) Hepatitis C Antibody Crossmatch 03/16/21 08:00 WBC RBC Hgb Hct MCV MCH MCHC RDW Plt Count Seg Neuts % (Manual) Lymphocytes % (Manual) Monocytes % (Manual) Nucleated RBC % Seg Neutrophils # Man Lymphocytes # (Manual) Monocytes # (Manual) PT INR APTT D-Dimer ABG pH POC ABG pCO2 POC ABG pO2 ABG pO2 ABG HCO3 ABG O2 Saturation ABG Base Excess ABG Hemoglobin ABG Oxyhemoglobin ABG Sodium ABG Potassium ABG Glucose Oxyhemoglobin Sodium Potassium Carbon Dioxide BUN Creatinine Glucose POC Glucose Calcium Magnesium Ferritin Total Bilirubin AST ALT Alkaline Phosphatase Ammonia Lactate Dehydrogenase C-Reactive Protein NT-Pro-B Natriuret Pep Total Protein Albumin Arterial Blood Glucose Arterial Blood Ionized Calcium Coronavirus (PCR) Hepatitis C Antibody Crossmatch See Detail Assessment and Plan Assessment and Plan #Acute Encephalopathy Off Sedation today , Acute Hepatic failure , intubated unresponsive to stimuli - finding is suggestive multifactorial etiology for change in mentation -EEG r/o seizure -correct underlying infection -correct ammonia #72 -presented with hypotension, hypoxemia and hypoglycemia -CT brain when possible -EEG -No sedation # Sinus tachcardia, hypotension - Vasopressor support with levophed, vasopressin -Tejinder-Synephrine ordered if needed -map goal > 60 -echo # Acute respiratory failure with hypoxia,h/o tobacco abuse -Intubated 03/12 in the ED with 7.50 ETT at 24 at the lips # Acute decompensated liver failure, transaminitis, shock liver, 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, recurrent ascites, rectal bleeding -Serum ammonia 72 on admission -Spironalactone resumed -Abdominal ultrasound shows moderate to large volume ascites throughout all 4 quadrants of the abdomen -Avoid hepatotoxins -Trend LFTs -Per GI if signs of bleeding noted; vitamin K -Conservative management -Denied transfer to [place] for liver failure # Acute kidney injury, hyperkalemia, refractory acidosis -today 29/03.8 # Sepsis, COVID-19 pneumonia, r/o SBP -Infectious disease consulted, appreciate recommendations -COVID-19 PCR positive -Decadron 6 mg IV (03/13-03/2019) -Holding remdesivir in setting of transaminitis -Hold prophylactic anticoagulation due to rectal bleed, supratherapeutic INR. -f/u culture data -Monitor fever and wbc curve # Supratherapeutic INR, elevated D-dimer, h/o anemia due to rectal bleed, microcytic anemia -CTA chest negative for pulmonary embolism -Trend INR -Monitor for bleeding -Hold chemical anticoagulation -SCD to bilateral lower extremities while in bed -Trend CBC -Transfuse hemoglobin less than 7 #Hypoglycemia -Dextrose drip with bicarb -Accu-Cheks every 6 -Hypoglycemic protocol The high probability of a clinically significant, sudden or life threatening deterioration of the [multi] system(s) required my full and direct attention, intervention and personal management. The aggregate critical care time was [90] minutes. This time is in addition to time spent performing reported procedures but includes the following: [x] Data Review and interpretation [x] Patient assessment and monitoring of vital signs [x] Documentation [x] Medication orders and management Over all prognosis is quarded need CT brain at least EEG when possible
[2021-03-16] MEDS: THIAMINE 100 MG TAB PO SCH (09:30)
[2021-03-16] MEDS: FOLIC ACID 1 MG TAB PO SCH (09:30)
[2021-03-16] MEDS: SENNOSIDES/DOCUSATE SODIUM 8.6/50 MG TAB FEEDTUBE SCH (09:30)
[2021-03-16] MEDS: VANCOMYCIN/NS 1 GM/250 ML 1 GM/250 ML BAG IV SCH (09:31)
[2021-03-16] MEDS: FERROUS SULFATE 300 MG (60MG Elemental Iron) / 5 mL ORAL LIQD PO SCH ×2 (09:31→23:28)
[2021-03-16] MEDS: cefTRIAXone/NS 2 GM/100 ML 2 GM/100 ML BAG IV SCH (09:31)
[2021-03-16] MEDS: dexAMETHasone 4 MG/ML VIAL IV SCH (09:31)
[2021-03-16] MEDS: FAMOTIDINE 10 MG TAB FEEDTUBE SCH ×2 (12:49→23:28)
[2021-03-16] MEDS ORDERED: D5W/0.45% NACL 1,000 ML IV SCH (13:00)
--- NOTE | 2021-03-16 13:50 | Progress Note ---
Assessment and Plan Cultures: SARS CoV2 PCR: Positive as outpatient 03/12/2021 blood culture: no growth 03/12/2021 tracheal aspirate culture: In process A/P: 65-year-old male with hepatic cirrhosis, chronic hepatitis C, anemia, ascites, recent hospitalization due to worsening ascites, underwent paracentesis with removal of 13 L of fluid, now with: #Septic shock: from COVID, also rule out SBP. Initial labs showed significant leukocytosis of 15.4, D-dimer greater than 10K, procalcitonin 8.67, CRP 10.8, LDH 287, ferritin 414, ammonia 72. Ferritin next day worsened to 6545, AST increased to 4019, ALT 501. Required multiple pressors. #Bilateral pneumonia: secondary to COVID-19 #Right pleural effusion, ascites #Acute hypoxic respiratory failure: on the vent #Acute renal failure, acidosis: nephrology on board. #Hepatic cirrhosis with ascites #Chronic hepatitis C: genotype 1a. Prior treatment status unknown. #Acute hepatic failure Recs: -continue to hold further remdesivir -continue IV/PO Dexamethasone x 10 days -Not a candidate for Actemra -prophylactic anticoagulation based on d-dimer per hospital protocol -continue empiric abx: ceftriaxone, IV Vancomycin -trend ferritin, d-dimer, CRP every 2-3 days -extremely poor prognosis Jhony Nickerson MD, FACP, [facility] ([facility]) O: [phone] F: [phone] Subjective Date of service: 03/16/21 Interval history: Afebrile. Remains on the vent, critically ill, off pressors. Objective - Exam Narrative Exam: Physical Exam (reviewed in chart to minimize risk of transmission) Constitutional: deferred Head, Ears, Nose: deferred Eyes: deferred Neck: deferred Oral: deferred Cardiovascular: deferred Respiratory: deferred GI: deferred Musculoskeletal: deferred Skin: deferred Hem/Lymphatic: deferred Psych: deferred Neurological: deferred - Constitutional Vitals: Vital Signs Temp Pulse Resp BP Pulse Ox 97.1 F L 99 H 20 118/77 98 03/16/21 12:00 03/16/21 13:16 03/16/21 13:16 03/16/21 13:16 03/16/21 13:16 Temperature -Last 24 Hours Temperature 97.1 F Temperature 97.2 F Temperature 98 F Temperature 98.4 F Temperature 98.4 F Temperature 100 F Temperature 98.1 F Temperature 98.2 F Temperature 97.9 F - Labs CBC & Chem 7: 03/16/21 06:30 03/16/21 06:30 Labs: Abnormal lab results 03/15/21 03/15/21 03/16/21 Range/Units 13:53 23:52 06:30 WBC (4.5-11.0) K/mm3 RBC (3.65-5.03) M/mm3 Hgb (11.8-15.2) gm/dl Hct (35.5-45.6) % MCV (84-94) fl MCH (28-32) pg MCHC (32-34) % RDW (13.2-15.2) % Plt Count (140-440) K/mm3 PT (12.2-14.9) Sec. INR (0.87-1.13) Sodium 146 H (137-145) mmol/L Potassium 3.1 L D (3.6-5.0) mmol/L BUN 27 H (9-20) mg/dL Creatinine 1.8 H (0.8-1.3) mg/dL Glucose 140 H (75-100) mg/dL POC Glucose 40 L 142 H (70-105) mg/dL Calcium 7.3 L D (8.4-10.2) mg/dL Magnesium (1.7-2.3) mg/dL Total Bilirubin 3.10 H (0.1-1.2) mg/dL AST 2233 H (5-40) units/L ALT 409 H (7-56) units/L Alkaline Phosphatase 156 H (35-129) units/L Total Protein 5.2 L (6.3-8.2) g/dL Albumin 2.5 L (3.9-5) g/dL Crossmatch 03/16/21 03/16/21 03/16/21 Range/Units 06:30 06:30 06:30 WBC 15.5 H (4.5-11.0) K/mm3 RBC 2.54 L (3.65-5.03) M/mm3 Hgb 5.5 L* (11.8-15.2) gm/dl Hct 19.1 L* D (35.5-45.6) % MCV 75 L (84-94) fl MCH 21 L (28-32) pg MCHC 29 L (32-34) % RDW 26.7 H (13.2-15.2) % Plt Count 36 L (140-440) K/mm3 PT 58.3 H (12.2-14.9) Sec. INR 6.13 H* (0.87-1.13) Sodium (137-145) mmol/L Potassium (3.6-5.0) mmol/L BUN (9-20) mg/dL Creatinine (0.8-1.3) mg/dL Glucose (75-100) mg/dL POC Glucose (70-105) mg/dL Calcium (8.4-10.2) mg/dL Magnesium 1.60 L (1.7-2.3) mg/dL Total Bilirubin (0.1-1.2) mg/dL AST (5-40) units/L ALT (7-56) units/L Alkaline Phosphatase (35-129) units/L Total Protein (6.3-8.2) g/dL Albumin (3.9-5) g/dL Crossmatch 03/16/21 03/16/21 03/16/21 Range/Units 08:00 12:10 13:19 WBC (4.5-11.0) K/mm3 RBC (3.65-5.03) M/mm3 Hgb (11.8-15.2) gm/dl Hct (35.5-45.6) % MCV (84-94) fl MCH (28-32) pg MCHC (32-34) % RDW (13.2-15.2) % Plt Count (140-440) K/mm3 PT (12.2-14.9) Sec. INR (0.87-1.13) Sodium (137-145) mmol/L Potassium (3.6-5.0) mmol/L BUN (9-20) mg/dL Creatinine (0.8-1.3) mg/dL Glucose (75-100) mg/dL POC Glucose 59 L 110 H (70-105) mg/dL Calcium (8.4-10.2) mg/dL Magnesium (1.7-2.3) mg/dL Total Bilirubin (0.1-1.2) mg/dL AST (5-40) units/L ALT (7-56) units/L Alkaline Phosphatase (35-129) units/L Total Protein (6.3-8.2) g/dL Albumin (3.9-5) g/dL Crossmatch See Detail - Imaging and cardiology Chest x-ray: report reviewed, image reviewed (no interval change. ETT +, R effusion +)
--- NOTE | 2021-03-16 15:57 | Gastroenterology Progress Note ---
Assessment and Plan 1. Liver: alcohol cirrhosis with ascites presented w/ COVID PNA and intubated - noted decreasing ast/alt but increasing t.bili, consistent with shock - conservative management from GI liver standpoint - hemodynamic stability per primary team - if signs bleeding then Vitamin K - avoid hepatotoxic drugs - liver related serologies 2. Anemia: notred decreasing h/h without signs bleeding - transfuse as needed - PPI iv - no plans to scope 3. Pulm: COVID pna intubated - antibiotics per ID - cent per Pulmonary - poor prognosis - will followfor now Subjective Date of service: 03/16/21 Interval history: - no changes except loose stools without bleeding overnight. Objective - Constitutional Vitals: Temp Pulse Resp BP Pulse Ox 97.1 F L 99 H 20 118/77 98 03/16/21 12:00 03/16/21 13:16 03/16/21 13:16 03/16/21 13:16 03/16/21 13:16 General appearance: no acute distress - EENT Eyes: PERRL - Respiratory Respiratory: bilateral: rhonchi - Cardiovascular Rhythm: regular Heart Sounds: Present: S1 & S2 - Gastrointestinal General gastrointestinal: Present: soft, non-tender, non-distended - Labs CBC & Chem 7: 03/16/21 06:30 03/16/21 06:30 Labs: Laboratory Results - last 24 hr 03/15/21 03/15/21 03/16/21 16:04 23:52 06:30 WBC RBC Hgb Hct MCV MCH MCHC RDW Plt Count PT INR Sodium 146 H Potassium 3.1 L D Chloride 98.2 Carbon Dioxide 23 D Anion Gap 28 BUN 27 H Creatinine 1.8 H Estimated GFR 38 BUN/Creatinine Ratio 15 Glucose 140 H POC Glucose 92 142 H Calcium 7.3 L D Phosphorus Magnesium Total Bilirubin 3.10 H AST 2233 H ALT 409 H Alkaline Phosphatase 156 H Total Protein 5.2 L Albumin 2.5 L Albumin/Globulin Ratio 0.9 Random Vancomycin Blood Type Antibody Screen Crossmatch 03/16/21 03/16/21 03/16/21 06:30 06:30 06:30 WBC 15.5 H RBC 2.54 L Hgb 5.5 L* Hct 19.1 L* D MCV 75 L MCH 21 L MCHC 29 L RDW 26.7 H Plt Count 36 L PT 58.3 H INR 6.13 H* Sodium Potassium Chloride Carbon Dioxide Anion Gap BUN Creatinine Estimated GFR BUN/Creatinine Ratio Glucose POC Glucose Calcium Phosphorus 3.20 Magnesium 1.60 L Total Bilirubin AST ALT Alkaline Phosphatase Total Protein Albumin Albumin/Globulin Ratio Random Vancomycin Blood Type Antibody Screen Crossmatch 03/16/21 03/16/21 03/16/21 06:30 08:00 12:10 WBC RBC Hgb Hct MCV MCH MCHC RDW Plt Count PT INR Sodium Potassium Chloride Carbon Dioxide Anion Gap BUN Creatinine Estimated GFR BUN/Creatinine Ratio Glucose POC Glucose 59 L Calcium Phosphorus Magnesium Total Bilirubin AST ALT Alkaline Phosphatase Total Protein Albumin Albumin/Globulin Ratio Random Vancomycin 5.6 Blood Type B POSITIVE Antibody Screen Negative Crossmatch See Detail 03/16/21 13:19 WBC RBC Hgb Hct MCV MCH MCHC RDW Plt Count PT INR Sodium Potassium Chloride Carbon Dioxide Anion Gap BUN Creatinine Estimated GFR BUN/Creatinine Ratio Glucose POC Glucose 110 H Calcium Phosphorus Magnesium Total Bilirubin AST ALT Alkaline Phosphatase Total Protein Albumin Albumin/Globulin Ratio Random Vancomycin Blood Type Antibody Screen Crossmatch
--- NOTE | 2021-03-16 16:28 | Progress Note ---
Assessment and Plan 65 y/o male with acute respiratory failure most likely secondary to COVID plus right sided effusion secondary to large volume ascities from liver cirrhosis. 03/16/21: Acidemia is improved with HD. Likely will hold today. Stopped bicarb drip and patient is now off pressors. Given drop in hemoglobin need to correct coagulopathy. FFP, vitamin K. GI already following. Hopefully patient does not have esophargeal or gastric varices. No overt evidence of bleeding. q6hour H/H's. Monitor platelets but hold on transfusion for now. Neurology concerned about ammonia level. Have no problem with empiric lactulose but will not trend ammonia levels. Very very guarded prognosis. 03/15/21: Vascath placed in right groin. ORder theron in the event it is needed during HD. Increase bicarb drip to 200. Hold all sedatives. No acute evidence of bleeding currently. Continue to trend LFT's and COags. Very very guarded prognosis. If not able to tolerate HD to fix acidemia, prognosis becomes gravely poor. 03/14/21: Started patient on bicarb drip and gave a few amps of sodium bicarb. Added vasopressin therapy. Continue Steroids and Remdesivir. Off sedation. Guarded prognosis. 1. Wean Vent settings and sedation as tolerated 2. Remdesivir and Steroids, Pending CRP, actemra 3. Hold on proning now that intubated, not able to paralyze and adequately sedate in the ED 4. Negative fluid balance if possible 5. Needs paracentesis, this should take care of pleural effusion as well. 6. Guarded prognosis. CCT 31 minutes. Subjective Date of service: 03/16/21 Interval history: No acute events. Remains unresponsive. Off floor now for CT. HgB down to 5.5 this am. Got Vitamin K and FFP. Also getting blood. Objective Vital Signs - 12hr 03/16/21 03/16/21 03/16/21 04:30 04:45 05:00 Temperature Pulse Rate 94 H 97 H 97 H Pulse Rate [ From Monitor] Respiratory 28 H 30 H 26 H Rate Blood Pressure 102/65 100/63 101/64 O2 Sat by Pulse 96 100 100 Oximetry 03/16/21 03/16/21 03/16/21 05:15 05:30 05:45 Temperature Pulse Rate 94 H 95 H 93 H Pulse Rate [ From Monitor] Respiratory 28 H 27 H 26 H Rate Blood Pressure 98/59 96/56 102/59 O2 Sat by Pulse 100 100 100 Oximetry 03/16/21 03/16/21 03/16/21 06:00 06:15 06:30 Temperature Pulse Rate 96 H 97 H 96 H Pulse Rate [ From Monitor] Respiratory 23 24 19 Rate Blood Pressure 97/61 96/60 94/60 O2 Sat by Pulse 99 100 100 Oximetry 03/16/21 03/16/21 03/16/21 06:45 07:00 07:15 Temperature Pulse Rate 98 H 96 H 100 H Pulse Rate [ From Monitor] Respiratory 25 H 24 25 H Rate Blood Pressure 104/62 94/57 95/66 O2 Sat by Pulse 96 100 100 Oximetry 03/16/21 03/16/21 03/16/21 07:30 07:45 08:00 Temperature 97.2 F L Pulse Rate 96 H 98 H 95 H Pulse Rate [ From Monitor] Respiratory 27 H 25 H 31 H Rate Blood Pressure 91/58 102/63 94/61 O2 Sat by Pulse 100 97 100 Oximetry 03/16/21 03/16/21 03/16/21 08:15 08:30 08:33 Temperature Pulse Rate 96 H 95 H 98 H Pulse Rate [ From Monitor] Respiratory 26 H 33 H Rate Blood Pressure 100/60 98/61 98/61 O2 Sat by Pulse 100 99 100 Oximetry 03/16/21 03/16/21 03/16/21 08:45 09:00 09:15 Temperature Pulse Rate 93 H 97 H 97 H Pulse Rate [ From Monitor] Respiratory 19 18 22 Rate Blood Pressure 101/68 104/65 103/62 O2 Sat by Pulse 99 99 100 Oximetry 03/16/21 03/16/21 03/16/21 09:30 09:45 10:00 Temperature Pulse Rate 97 H 94 H 97 H Pulse Rate [ From Monitor] Respiratory 20 27 H 25 H Rate Blood Pressure 104/63 105/62 105/65 O2 Sat by Pulse 100 100 100 Oximetry 03/16/21 03/16/21 03/16/21 10:15 10:30 10:45 Temperature Pulse Rate 96 H 84 93 H Pulse Rate [ From Monitor] Respiratory 26 H 27 H 25 H Rate Blood Pressure 96/61 96/61 97/59 O2 Sat by Pulse 100 100 99 Oximetry 03/16/21 03/16/21 03/16/21 11:00 11:15 11:30 Temperature Pulse Rate 88 94 H 96 H Pulse Rate [ From Monitor] Respiratory 24 28 H 25 H Rate Blood Pressure 96/59 105/69 105/69 O2 Sat by Pulse 100 100 98 Oximetry 03/16/21 03/16/21 03/16/21 11:45 11:58 12:00 Temperature 97.1 F L Pulse Rate 89 92 H 94 H Pulse Rate [ 92 H From Monitor] Respiratory 23 27 H Rate Blood Pressure 100/63 100/63 118/75 O2 Sat by Pulse 100 98 100 Oximetry 03/16/21 03/16/21 03/16/21 12:15 12:30 12:45 Temperature Pulse Rate 88 92 H 96 H Pulse Rate [ From Monitor] Respiratory 24 17 23 Rate Blood Pressure 106/65 99/67 116/78 O2 Sat by Pulse 98 98 98 Oximetry 03/16/21 03/16/21 03/16/21 13:00 13:16 16:00 Temperature 97.4 F L Pulse Rate 94 H 99 H Pulse Rate [ From Monitor] Respiratory 26 H 20 Rate Blood Pressure 118/77 118/77 O2 Sat by Pulse 99 98 Oximetry Gastrointestinal: normoactive bowel sounds Integumentary: normal CBC and BMP: 03/16/21 06:30 03/16/21 06:30 ABG, PT/INR, D-dimer: ABG ABG pH 7.088 pH Units (7.350-7.450) L* 03/15/21 03:42 POC ABG pCO2 24.6 mmHg (32.0-48.0) L 03/14/21 05:00 ABG pCO2 21.2 mm Hg 03/15/21 03:42 POC ABG pO2 96.2 mmHg (83-108) 03/14/21 05:00 ABG pO2 90.7 mm Hg (80.0-90.0) H 03/15/21 03:42 POC ABG HCO3 8.7 03/14/21 05:00 ABG O2 Saturation 92.8 % (95.0-99.0) L 03/15/21 03:42 PT/INR, D-dimer PT 58.3 Sec. (12.2-14.9) H 03/16/21 06:30 INR 6.13 (0.87-1.13) H* 03/16/21 06:30 D-Dimer > 18430 ng/mlDDU (0-234) H 03/14/21 05:34 Abnormal lab findings: Abnormal Labs 03/12/21 03/12/21 03/12/21 18:17 18:54 18:54 WBC 15.4 H RBC Hgb 9.0 L Hct 33.2 L MCV 77 L MCH 21 L MCHC 27 L RDW 28.1 H Plt Count Seg Neuts % (Manual) 86.0 H Lymphocytes % (Manual) 4.0 L Monocytes % (Manual) 8.0 H Nucleated RBC % Seg Neutrophils # Man 13.2 H Lymphocytes # (Manual) 0.6 L Monocytes # (Manual) 1.2 H PT INR APTT D-Dimer ABG pH POC ABG pCO2 POC ABG pO2 ABG pO2 ABG HCO3 ABG O2 Saturation ABG Base Excess ABG Hemoglobin ABG Oxyhemoglobin ABG Sodium ABG Potassium ABG Glucose Oxyhemoglobin Sodium 136 L Potassium 5.4 H Carbon Dioxide 16 L BUN 32 H Creatinine Glucose 104 H POC Glucose 58 L Calcium Magnesium Ferritin Total Bilirubin 1.40 H AST 71 H ALT Alkaline Phosphatase 164 H Ammonia Lactate Dehydrogenase C-Reactive Protein NT-Pro-B Natriuret Pep Total Protein Albumin 2.2 L Arterial Blood Glucose Arterial Blood Ionized Calcium Coronavirus (PCR) Hepatitis C Antibody Crossmatch 03/12/21 03/12/21 03/12/21 18:54 18:54 18:54 WBC RBC Hgb Hct MCV MCH MCHC RDW Plt Count Seg Neuts % (Manual) Lymphocytes % (Manual) Monocytes % (Manual) Nucleated RBC % Seg Neutrophils # Man Lymphocytes # (Manual) Monocytes # (Manual) PT 17.6 H INR 1.31 H APTT 38.7 H D-Dimer > 85960 H ABG pH POC ABG pCO2 POC ABG pO2 ABG pO2 ABG HCO3 ABG O2 Saturation ABG Base Excess ABG Hemoglobin ABG Oxyhemoglobin ABG Sodium ABG Potassium ABG Glucose Oxyhemoglobin Sodium Potassium Carbon Dioxide BUN Creatinine Glucose POC Glucose Calcium Magnesium Ferritin Total Bilirubin AST ALT Alkaline Phosphatase Ammonia 72.0 H Lactate Dehydrogenase C-Reactive Protein NT-Pro-B Natriuret Pep 1838 H Total Protein Albumin Arterial Blood Glucose Arterial Blood Ionized Calcium Coronavirus (PCR) Hepatitis C Antibody Crossmatch 03/12/21 03/12/21 03/12/21 18:54 19:04 19:21 WBC RBC Hgb Hct MCV MCH MCHC RDW Plt Count Seg Neuts % (Manual) Lymphocytes % (Manual) Monocytes % (Manual) Nucleated RBC % Seg Neutrophils # Man Lymphocytes # (Manual) Monocytes # (Manual) PT INR APTT D-Dimer ABG pH POC ABG pCO2 POC ABG pO2 ABG pO2 ABG HCO3 ABG O2 Saturation ABG Base Excess ABG Hemoglobin ABG Oxyhemoglobin ABG Sodium ABG Potassium ABG Glucose Oxyhemoglobin Sodium Potassium Carbon Dioxide BUN Creatinine Glucose POC Glucose 30 L Calcium Magnesium Ferritin 414.7 H Total Bilirubin AST ALT Alkaline Phosphatase Ammonia Lactate Dehydrogenase 287 H C-Reactive Protein 10.80 H NT-Pro-B Natriuret Pep Total Protein Albumin Arterial Blood Glucose Arterial Blood Ionized Calcium Coronavirus (PCR) Hepatitis C Antibody Crossmatch 03/12/21 03/12/21 03/13/21 19:50 20:14 00:05 WBC RBC Hgb Hct MCV MCH MCHC RDW Plt Count Seg Neuts % (Manual) Lymphocytes % (Manual) Monocytes % (Manual) Nucleated RBC % Seg Neutrophils # Man Lymphocytes # (Manual) Monocytes # (Manual) PT INR APTT D-Dimer ABG pH POC ABG pCO2 POC ABG pO2 314.9 H ABG pO2 ABG HCO3 ABG O2 Saturation ABG Base Excess ABG Hemoglobin ABG Oxyhemoglobin 98.9 H ABG Sodium ABG Potassium ABG Glucose 229 H Oxyhemoglobin Sodium Potassium Carbon Dioxide BUN Creatinine Glucose POC Glucose 24 L 371 H Calcium Magnesium Ferritin Total Bilirubin AST ALT Alkaline Phosphatase Ammonia Lactate Dehydrogenase C-Reactive Protein NT-Pro-B Natriuret Pep Total Protein Albumin Arterial Blood Glucose 229 H Arterial Blood Ionized Calcium Coronavirus (PCR) Hepatitis C Antibody Crossmatch 03/13/21 03/13/21 03/13/21 02:29 14:32 14:32 WBC 17.3 H RBC Hgb 8.8 L Hct 31.0 L MCV 75 L MCH 22 L MCHC 29 L RDW 27.5 H Plt Count Seg Neuts % (Manual) 91.0 H Lymphocytes % (Manual) 0 L Monocytes % (Manual) Nucleated RBC % 2.0 H Seg Neutrophils # Man 15.7 H Lymphocytes # (Manual) 0.0 L Monocytes # (Manual) 0.9 H PT INR APTT D-Dimer ABG pH POC ABG pCO2 POC ABG pO2 ABG pO2 ABG HCO3 ABG O2 Saturation ABG Base Excess ABG Hemoglobin ABG Oxyhemoglobin ABG Sodium ABG Potassium ABG Glucose Oxyhemoglobin Sodium Potassium Carbon Dioxide 16 L BUN 35 H Creatinine 1.5 H Glucose 58 L POC Glucose 128 H Calcium 7.8 L Magnesium Ferritin Total Bilirubin 1.40 H AST 82 H ALT Alkaline Phosphatase 163 H Ammonia Lactate Dehydrogenase C-Reactive Protein NT-Pro-B Natriuret Pep Total Protein 6.2 L Albumin 1.7 L Arterial Blood Glucose Arterial Blood Ionized Calcium Coronavirus (PCR) Hepatitis C Antibody Crossmatch 03/13/21 03/14/21 03/14/21 Unknown 05:00 05:34 WBC 16.9 H RBC Hgb 7.9 L Hct 29.4 L MCV 80 L MCH 22 L MCHC 27 L RDW 28.6 H Plt Count Seg Neuts % (Manual) 72.0 H Lymphocytes % (Manual) 5.0 L Monocytes % (Manual) Nucleated RBC % 7.0 H Seg Neutrophils # Man 12.2 H Lymphocytes # (Manual) 0.8 L Monocytes # (Manual) PT INR APTT D-Dimer ABG pH 7.167 L POC ABG pCO2 24.6 L POC ABG pO2 ABG pO2 ABG HCO3 ABG O2 Saturation ABG Base Excess ABG Hemoglobin 9.3 L ABG Oxyhemoglobin ABG Sodium 135.2 L ABG Potassium 5.5 H ABG Glucose Oxyhemoglobin Sodium Potassium Carbon Dioxide BUN Creatinine Glucose POC Glucose Calcium Magnesium Ferritin Total Bilirubin AST ALT Alkaline Phosphatase Ammonia Lactate Dehydrogenase C-Reactive Protein NT-Pro-B Natriuret Pep Total Protein Albumin Arterial Blood Glucose Arterial Blood Ionized Calcium 4.3 L Coronavirus (PCR) Positive A Hepatitis C Antibody Crossmatch 03/14/21 03/14/21 03/14/21 05:34 05:34 05:34 WBC RBC Hgb Hct MCV MCH MCHC RDW Plt Count Seg Neuts % (Manual) Lymphocytes % (Manual) Monocytes % (Manual) Nucleated RBC % Seg Neutrophils # Man Lymphocytes # (Manual) Monocytes # (Manual) PT INR APTT D-Dimer > 90226 H ABG pH POC ABG pCO2 POC ABG pO2 ABG pO2 ABG HCO3 ABG O2 Saturation ABG Base Excess ABG Hemoglobin ABG Oxyhemoglobin ABG Sodium ABG Potassium ABG Glucose Oxyhemoglobin Sodium Potassium 5.7 H D Carbon Dioxide BUN 37 H Creatinine Glucose POC Glucose Calcium 7.9 L Magnesium Ferritin 6545.0 H Total Bilirubin 1.80 H AST 4019 H ALT 501 H Alkaline Phosphatase Ammonia Lactate Dehydrogenase 2367 H C-Reactive Protein 8.40 H NT-Pro-B Natriuret Pep Total Protein 5.8 L Albumin 1.8 L Arterial Blood Glucose Arterial Blood Ionized Calcium Coronavirus (PCR) Hepatitis C Antibody Crossmatch 03/14/21 03/14/21 03/14/21 05:34 07:16 07:18 WBC RBC Hgb Hct MCV MCH MCHC RDW Plt Count Seg Neuts % (Manual) Lymphocytes % (Manual) Monocytes % (Manual) Nucleated RBC % Seg Neutrophils # Man Lymphocytes # (Manual) Monocytes # (Manual) PT INR APTT D-Dimer ABG pH POC ABG pCO2 POC ABG pO2 ABG pO2 ABG HCO3 ABG O2 Saturation ABG Base Excess ABG Hemoglobin ABG Oxyhemoglobin ABG Sodium ABG Potassium ABG Glucose Oxyhemoglobin Sodium Potassium 5.4 H Carbon Dioxide 12 L BUN 38 H Creatinine 2.5 H D Glucose 29 L* POC Glucose 17 L Calcium 7.6 L Magnesium Ferritin Total Bilirubin AST ALT Alkaline Phosphatase Ammonia Lactate Dehydrogenase 2218 H C-Reactive Protein 8.30 H NT-Pro-B Natriuret Pep Total Protein Albumin Arterial Blood Glucose Arterial Blood Ionized Calcium Coronavirus (PCR) Hepatitis C Antibody Reactive A Crossmatch 03/14/21 03/14/21 03/14/21 08:08 08:59 10:06 WBC RBC Hgb Hct MCV MCH MCHC RDW Plt Count Seg Neuts % (Manual) Lymphocytes % (Manual) Monocytes % (Manual) Nucleated RBC % Seg Neutrophils # Man Lymphocytes # (Manual) Monocytes # (Manual) PT 40.7 H INR 3.85 H APTT D-Dimer ABG pH POC ABG pCO2 POC ABG pO2 ABG pO2 ABG HCO3 ABG O2 Saturation ABG Base Excess ABG Hemoglobin ABG Oxyhemoglobin ABG Sodium ABG Potassium ABG Glucose Oxyhemoglobin Sodium Potassium Carbon Dioxide BUN Creatinine Glucose POC Glucose 11 L 144 H Calcium Magnesium Ferritin Total Bilirubin AST ALT Alkaline Phosphatase Ammonia Lactate Dehydrogenase C-Reactive Protein NT-Pro-B Natriuret Pep Total Protein Albumin Arterial Blood Glucose Arterial Blood Ionized Calcium Coronavirus (PCR) Hepatitis C Antibody Crossmatch 03/14/21 03/15/21 03/15/21 18:15 03:42 04:17 WBC RBC Hgb Hct MCV MCH MCHC RDW Plt Count Seg Neuts % (Manual) Lymphocytes % (Manual) Monocytes % (Manual) Nucleated RBC % Seg Neutrophils # Man Lymphocytes # (Manual) Monocytes # (Manual) PT INR APTT D-Dimer ABG pH 7.088 L* POC ABG pCO2 POC ABG pO2 ABG pO2 90.7 H ABG HCO3 6.2 L ABG O2 Saturation 92.8 L ABG Base Excess -21.8 L ABG Hemoglobin 8.9 L ABG Oxyhemoglobin ABG Sodium ABG Potassium ABG Glucose Oxyhemoglobin 90.8 L Sodium Potassium 6.5 H* D Carbon Dioxide 5 L* D BUN 37 H Creatinine 2.1 H Glucose POC Glucose 124 H Calcium 7.4 L Magnesium Ferritin Total Bilirubin 2.40 H AST 3911 H ALT 663 H Alkaline Phosphatase 139 H Ammonia Lactate Dehydrogenase C-Reactive Protein NT-Pro-B Natriuret Pep Total Protein 5.8 L Albumin 1.8 L Arterial Blood Glucose Arterial Blood Ionized Calcium Coronavirus (PCR) Hepatitis C Antibody Crossmatch 03/15/21 03/15/21 03/15/21 11:17 11:41 13:13 WBC RBC Hgb Hct MCV MCH MCHC RDW Plt Count Seg Neuts % (Manual) Lymphocytes % (Manual) Monocytes % (Manual) Nucleated RBC % Seg Neutrophils # Man Lymphocytes # (Manual) Monocytes # (Manual) PT INR APTT D-Dimer ABG pH POC ABG pCO2 POC ABG pO2 ABG pO2 ABG HCO3 ABG O2 Saturation ABG Base Excess ABG Hemoglobin ABG Oxyhemoglobin ABG Sodium ABG Potassium ABG Glucose Oxyhemoglobin Sodium 153 H D Potassium Carbon Dioxide 14 L D BUN 31 H Creatinine 1.8 H Glucose 262 H POC Glucose 17 L 35 L Calcium 5.8 L* D Magnesium Ferritin Total Bilirubin AST ALT Alkaline Phosphatase Ammonia Lactate Dehydrogenase C-Reactive Protein NT-Pro-B Natriuret Pep Total Protein Albumin Arterial Blood Glucose Arterial Blood Ionized Calcium Coronavirus (PCR) Hepatitis C Antibody Crossmatch 03/15/21 03/15/21 03/16/21 13:53 23:52 06:30 WBC RBC Hgb Hct MCV MCH MCHC RDW Plt Count Seg Neuts % (Manual) Lymphocytes % (Manual) Monocytes % (Manual) Nucleated RBC % Seg Neutrophils # Man Lymphocytes # (Manual) Monocytes # (Manual) PT INR APTT D-Dimer ABG pH POC ABG pCO2 POC ABG pO2 ABG pO2 ABG HCO3 ABG O2 Saturation ABG Base Excess ABG Hemoglobin ABG Oxyhemoglobin ABG Sodium ABG Potassium ABG Glucose Oxyhemoglobin Sodium 146 H Potassium 3.1 L D Carbon Dioxide BUN 27 H Creatinine 1.8 H Glucose 140 H POC Glucose 40 L 142 H Calcium 7.3 L D Magnesium Ferritin Total Bilirubin 3.10 H AST 2233 H ALT 409 H Alkaline Phosphatase 156 H Ammonia Lactate Dehydrogenase C-Reactive Protein NT-Pro-B Natriuret Pep Total Protein 5.2 L Albumin 2.5 L Arterial Blood Glucose Arterial Blood Ionized Calcium Coronavirus (PCR) Hepatitis C Antibody Crossmatch 03/16/21 03/16/21 03/16/21 06:30 06:30 06:30 WBC 15.5 H RBC 2.54 L Hgb 5.5 L* Hct 19.1 L* D MCV 75 L MCH 21 L MCHC 29 L RDW 26.7 H Plt Count 36 L Seg Neuts % (Manual) Lymphocytes % (Manual) Monocytes % (Manual) Nucleated RBC % Seg Neutrophils # Man Lymphocytes # (Manual) Monocytes # (Manual) PT 58.3 H INR 6.13 H* APTT D-Dimer ABG pH POC ABG pCO2 POC ABG pO2 ABG pO2 ABG HCO3 ABG O2 Saturation ABG Base Excess ABG Hemoglobin ABG Oxyhemoglobin ABG Sodium ABG Potassium ABG Glucose Oxyhemoglobin Sodium Potassium Carbon Dioxide BUN Creatinine Glucose POC Glucose Calcium Magnesium 1.60 L Ferritin Total Bilirubin AST ALT Alkaline Phosphatase Ammonia Lactate Dehydrogenase C-Reactive Protein NT-Pro-B Natriuret Pep Total Protein Albumin Arterial Blood Glucose Arterial Blood Ionized Calcium Coronavirus (PCR) Hepatitis C Antibody Crossmatch 03/16/21 03/16/21 03/16/21 08:00 12:10 13:19 WBC RBC Hgb Hct MCV MCH MCHC RDW Plt Count Seg Neuts % (Manual) Lymphocytes % (Manual) Monocytes % (Manual) Nucleated RBC % Seg Neutrophils # Man Lymphocytes # (Manual) Monocytes # (Manual) PT INR APTT D-Dimer ABG pH POC ABG pCO2 POC ABG pO2 ABG pO2 ABG HCO3 ABG O2 Saturation ABG Base Excess ABG Hemoglobin ABG Oxyhemoglobin ABG Sodium ABG Potassium ABG Glucose Oxyhemoglobin Sodium Potassium Carbon Dioxide BUN Creatinine Glucose POC Glucose 59 L 110 H Calcium Magnesium Ferritin Total Bilirubin AST ALT Alkaline Phosphatase Ammonia Lactate Dehydrogenase C-Reactive Protein NT-Pro-B Natriuret Pep Total Protein Albumin Arterial Blood Glucose Arterial Blood Ionized Calcium Coronavirus (PCR) Hepatitis C Antibody Crossmatch See Detail
--- NOTE | 2021-03-16 16:43 | Cat Scan Report ---
CT BRAIN: 03/16/2021 INDICATION / CLINICAL INFORMATION: encephalopathy. COMPARISON: None available. FINDINGS: BRAIN/INTRACRANIAL STRUCTURES: Unenhanced CT images of the brain demonstrate no evidence of acute abn ormality. Ventricles and sulci are somewhat prominent in size, consistent with some diffuse cerebral atrophy fo r age. There is no evidence of acute large vessel territory ischemic injury, hemorrhage, or mass. There are no abnormal extra-axial fluid collections. EXTRACRANIAL STRUCTURES: Unremarkable. IMPRESSION: No acute abnormality. Diffuse cerebral atrophy. All CT scans at this location are performed using dose reduction to ALARA by means of automated expos ure control. Signer Name: Hammad Hankins MD Signed: 03/16/2021 4:38 PM Workstation Name: [id number]
[2021-03-16] MEDS ORDERED: SODIUM BICARB 8.4% 50 MEQ/50 ML SYRINGE IV ONE ×2 (17:06→17:13)
--- NOTE | 2021-03-16 17:12 | Progress Note ---
Assessment and Plan Impression: * IVON--ATN * sepsis * acute hypoxic resp failure * COVID PNA * Hepatitis * hyperkalemia * refractory acidosis Plan: * k and co2 noted, s/p hemodialysis for correction of acidosis and hyperkalemia * follow up lytes in am to assess for continued need for [employer] * no plans for hd today * continue ivfs, added albumin * kayexlate prn * daily lytes, strict i/os * keep MAP >65, vasopressors prn * avoid nephrotoxins Subjective Date of service: 03/16/21 Principal diagnosis: ivon Interval history: labs and chart reviewed events noted Objective - Exam Narrative Exam: Physical Exam: exam deferred, primary team exam noted - Vital Signs Vital signs: Vital Signs - 12hr 03/16/21 03/16/21 03/16/21 05:15 05:30 05:45 Temperature Pulse Rate 94 H 95 H 93 H Pulse Rate [ From Monitor] Respiratory 28 H 27 H 26 H Rate Blood Pressure 98/59 96/56 102/59 O2 Sat by Pulse 100 100 100 Oximetry 03/16/21 03/16/21 03/16/21 06:00 06:15 06:30 Temperature Pulse Rate 96 H 97 H 96 H Pulse Rate [ From Monitor] Respiratory 23 24 19 Rate Blood Pressure 97/61 96/60 94/60 O2 Sat by Pulse 99 100 100 Oximetry 03/16/21 03/16/21 03/16/21 06:45 07:00 07:15 Temperature Pulse Rate 98 H 96 H 100 H Pulse Rate [ From Monitor] Respiratory 25 H 24 25 H Rate Blood Pressure 104/62 94/57 95/66 O2 Sat by Pulse 96 100 100 Oximetry 03/16/21 03/16/21 03/16/21 07:30 07:45 08:00 Temperature 97.2 F L Pulse Rate 96 H 98 H 95 H Pulse Rate [ From Monitor] Respiratory 27 H 25 H 31 H Rate Blood Pressure 91/58 102/63 94/61 O2 Sat by Pulse 100 97 100 Oximetry 03/16/21 03/16/21 03/16/21 08:15 08:30 08:33 Temperature Pulse Rate 96 H 95 H 98 H Pulse Rate [ From Monitor] Respiratory 26 H 33 H Rate Blood Pressure 100/60 98/61 98/61 O2 Sat by Pulse 100 99 100 Oximetry 03/16/21 03/16/21 03/16/21 08:45 09:00 09:15 Temperature Pulse Rate 93 H 97 H 97 H Pulse Rate [ From Monitor] Respiratory 19 18 22 Rate Blood Pressure 101/68 104/65 103/62 O2 Sat by Pulse 99 99 100 Oximetry 03/16/21 03/16/21 03/16/21 09:30 09:45 10:00 Temperature Pulse Rate 97 H 94 H 97 H Pulse Rate [ From Monitor] Respiratory 20 27 H 25 H Rate Blood Pressure 104/63 105/62 105/65 O2 Sat by Pulse 100 100 100 Oximetry 03/16/21 03/16/21 03/16/21 10:15 10:30 10:45 Temperature Pulse Rate 96 H 84 93 H Pulse Rate [ From Monitor] Respiratory 26 H 27 H 25 H Rate Blood Pressure 96/61 96/61 97/59 O2 Sat by Pulse 100 100 99 Oximetry 03/16/21 03/16/21 03/16/21 11:00 11:15 11:30 Temperature Pulse Rate 88 94 H 96 H Pulse Rate [ From Monitor] Respiratory 24 28 H 25 H Rate Blood Pressure 96/59 105/69 105/69 O2 Sat by Pulse 100 100 98 Oximetry 03/16/21 03/16/21 03/16/21 11:45 11:58 12:00 Temperature 97.1 F L Pulse Rate 89 92 H 94 H Pulse Rate [ 92 H From Monitor] Respiratory 23 27 H Rate Blood Pressure 100/63 100/63 118/75 O2 Sat by Pulse 100 98 100 Oximetry 03/16/21 03/16/21 03/16/21 12:15 12:30 12:45 Temperature Pulse Rate 88 92 H 96 H Pulse Rate [ From Monitor] Respiratory 24 17 23 Rate Blood Pressure 106/65 99/67 116/78 O2 Sat by Pulse 98 98 98 Oximetry 03/16/21 03/16/21 03/16/21 13:00 13:16 16:00 Temperature 97.4 F L Pulse Rate 94 H 99 H Pulse Rate [ From Monitor] Respiratory 26 H 20 Rate Blood Pressure 118/77 118/77 O2 Sat by Pulse 99 98 Oximetry 03/16/21 16:57 Temperature Pulse Rate 98 H Pulse Rate [ From Monitor] Respiratory Rate Blood Pressure O2 Sat by Pulse 93 Oximetry - Lab 03/16/21 06:30 03/16/21 06:30 Most recent lab results ABG pH 7.088 pH Units (7.350-7.450) L* 03/15/21 03:42 ABG pCO2 21.2 mm Hg 03/15/21 03:42 ABG pO2 90.7 mm Hg (80.0-90.0) H 03/15/21 03:42 ABG HCO3 6.2 mmol/L (20.0-26.0) L 03/15/21 03:42 ABG O2 Saturation 92.8 % (95.0-99.0) L 03/15/21 03:42 Calcium 7.3 mg/dL (8.4-10.2) L D 03/16/21 06:30 Phosphorus 3.20 mg/dL (2.5-4.5) 03/16/21 06:30 Magnesium 1.60 mg/dL (1.7-2.3) L 03/16/21 06:30 Medications & Allergies - Medications Allergies/Adverse Reactions: Allergies No Known Allergies Allergy (Verified 02/27/21 20:19) Home Medications: Home Medications Medication Instructions Recorded Confirmed Last Taken Type Ferrous Sulfate [Feosol 325 MG tab] 325 mg PO BID #30 tablet 03/04/21 Unknown Rx Folic Acid [Folvite] 1 mg PO QDAY #30 tablet 03/04/21 Unknown Rx Spironolactone [Aldactone] 50 mg PO QDAY #30 tablet 03/04/21 Unknown Rx Thiamine [Vitamin B-1] 100 mg PO QDAY #30 tablet 03/04/21 Unknown Rx Active Medications: Generic Name Dose Route Start Last Admin Trade Name Freq PRN Reason Stop Dose Admin Albuterol 2.5 mg 03/12/21 21:29 Albuterol 2.5 Mg/3 Ml Nebu Q4HRT PRN Shortness Of Breath Dexamethasone 6 mg 03/13/21 10:00 03/16/21 09:31 Dexamethasone 4 Mg/Ml Vial IV 03/22/21 10:01 6 mg DAILY STEPHEN Administration Dextrose 0 ml 03/15/21 10:00 03/15/21 13:34 Dextrose 50% In Water (25gm) 50 Ml Syringe IV 50 ml Q30MIN PRN Administration Hypoglycemia Protocol Famotidine 10 mg 03/16/21 10:00 03/16/21 12:49 Famotidine 10 Mg Tab FEEDTUBE 10 mg BID STEPHEN Administration Fentanyl 50 mcg 03/13/21 16:03 03/15/21 22:57 Fentanyl 100 Mcg/2 Ml Inj IV 50 mcg Q10MIN PRN Administration ANALGESIA Ferrous Sulfate 300 mg 03/13/21 10:00 03/16/21 09:31 Ferrous Sulfate 300 Mg (60mg Elemental Iron) / 5 Ml Oral Liqd PO 300 mg BID STEPHEN Administration Folic Acid 1 mg 03/13/21 10:00 03/16/21 09:30 Folic Acid 1 Mg Tab PO 1 mg QDAY STEPHEN Administration Hydromorphone HCl 0.5 mg 03/12/21 21:29 Hydromorphone 1 Mg/1 Ml Inj IV Q3H PRN Pain , Severe (7-10) Hydrophilic Ointment 1 applic 03/12/21 20:02 Lip Therapy Vaseline TP Q2HR PRN Dry Lips Ceftriaxone Sodium 2 gm in 100 mls @ 200 mls/hr 03/13/21 10:00 03/16/21 09:31 Rocephin/Ns 2 Gm/100 Ml IV 200 mls/hr Q24HR STEPHEN Administration Protocol Fentanyl Citrate 2,000 mcg in 100 mls @ 3.402 mls/hr 03/13/21 17:00 Fentanyl Drip Premix IV TITR STEPHEN Protocol 1 MCG/KG/HR NORepinephrine/NS 8 MG-250 ML 8 mg in 250 mls @ 3.75 mls/hr 03/13/21 21:00 03/16/21 01:18 Norepinephrine/Ns 8 Mg-250 Ml (Double Conc) IV 0 mcg/min TITRATE STEPHEN 0 mls/hr Titration Protocol 2 MCG/MIN Vasopressin 20 unit/ Sodium 101 mls @ 9.09 mls/hr 03/14/21 14:00 03/15/21 23:55 Chloride IV 0 units/min TITR STEPHEN 0 mls/hr Titration Protocol 0.03 UNITS/MIN Sodium Chloride 100 mls @ 999 mls/hr 03/15/21 10:00 Nacl 0.9% IV VICKEY PRN Hypotension Phenylephrine HCl 100 mg/ 100 mls @ 3 mls/hr 03/15/21 14:00 Sodium Chloride IV TITR STEPHEN Protocol 50 MCG/MIN Sodium Chloride 500 mls @ 0 mls/hr 03/16/21 07:39 Nacl 0.9% 500 Ml IV 03/16/21 23:59 ONCE NR As Directed Vancomycin HCl 1 gm in 250 mls @ 166.667 mls/hr 03/16/21 10:00 03/16/21 09:31 Vancomycin/Ns 1 Gm/250 Ml IV 166.667 mls/hr Q24HR STEPHEN Administration Dextrose/Sodium Chloride 1,000 mls @ 42 mls/hr 03/16/21 13:00 D5/0.45ns IV DIRECT STEPHEN Multi-Ingred Cream/Lotion/Oil/Oint 1 applic 03/12/21 20:02 Mineral Oil/Petrolatum, White Ophth Oint 3.5 Gm OU Q4HR PRN Dry Eye(s) Ondansetron HCl 4 mg 03/12/21 21:29 Ondansetron 4 Mg/2 Ml Inj IV Q8H PRN Nausea And Vomiting Senna/Docusate Sodium 1 tab 03/12/21 22:00 03/16/21 09:30 Sennosides/Docusate Sodium 8.6/50 Mg Tab FEEDTUBE 1 tab BID STEPHEN Administration Sodium Chloride 10 ml 03/12/21 22:00 03/16/21 09:32 Sodium Chloride 0.9% 10 Ml Flush Syringe IV 10 ml BID STEPHEN Administration Sodium Chloride 10 ml 03/12/21 21:29 Sodium Chloride 0.9% 10 Ml Flush Syringe IV PRN PRN LINE FLUSH Thiamine HCl 100 mg 03/13/21 10:00 03/16/21 09:30 Thiamine 100 Mg Tab PO 100 mg QDAY STEPHEN Administration
--- NOTE | 2021-03-16 19:13 | Progress Note ---
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 hepatitis C/EtOH abuse, anemia, recent rectal bleeding, recurrent ascites admitted with COVID-19 pneumonia, acute decompensated liver failure, shock liver, transaminitis, sepsis Assessment and Plan Neuro: Sedated, Acute Hepatic/ Metabolic Encephalopathy -Off sedation -prn fent IVP -Avoid delirium -Maintain sleep-wake cycle -No reponse to painful stimui, Pupils not reactive to light -Neuro consulted, appreciate recommendations -Thiamine CV: Sinus tachcardia, hypotension - Vasopressor support with levophed, vasopressin -Tejinder-Synephrine ordered if needed -map goal > 60 -off vasopressor -Blood pressure monitoring protocol -Consider cardiology consultation if needed Pulm: Acute respiratory failure with hypoxia,h/o tobacco abuse -Intubated 03/12 in the ED with 7.50 ETT at 24 at the lips -CCM consulted, appreciate recommendations -A.m. settings: Assist control tidal volume 500, rate 18, PEEP 6, FiO2 50% -See RT notes for titration -A.m. 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, recurrent ascites, rectal bleeding -GI consulted, appreciate recommendations -MELD NA: 22 -Serum ammonia 72 on admission -Spironalactone d/c d/t hypotension -Abdominal ultrasound shows moderate to large volume ascites throughout all 4 quadrants of the abdomen -Avoid hepatotoxins -Trend LFTs -Per GI if signs of bleeding noted; vitamin K -Conservative management -Denied transfer to [place] for liver failure : Acute kidney injury, hypokalemia, refractory acidosis (resolved) -Nephrology consulted, patient recommendations -Secondary to acute tubular necrosis per nephrology -s/p NaHCO3 gtt -s/p Kayexalate and calcium gluconate for hyperkalemia x1 on 03/15 -Significant output -HD initiated on 03/15 per nephrology -Albumin as needed d/c today -Trend BMP -Repeated potassium -Avoid nephrotoxic medications ID: Sepsis, COVID-19 pneumonia, r/o SBP -Infectious disease consulted, appreciate recommendations -COVID-19 PCR positive -Droplet/isolation precautions -Decadron 6 mg IV (03/13-03/2019) -Antibiotic therapy with Rocephin and vancomycin -Per ID not a candidate for Actemra -Holding remdesivir in setting of transaminitis -Trend COVID-19 telemetry markers -Hold prophylactic anticoagulation due to rectal bleed, supratherapeutic INR. -f/u culture data -Monitor fever and wbc curve Heme: Supratherapeutic INR, acute anemia, elevated D-dimer, h/o anemia due to rectal bleed, microcytic anemia -CTA chest negative for pulmonary embolism -Trend INR -INR 6.1 -vit K and FFP -Monitor for bleeding -Hold chemical anticoagulation -SCD to bilateral lower extremities while in bed -Trend CBC -Transfuse hemoglobin less than 7 -H/H 5.5/9.1 -> 2 units PRBC Endo: Hypoglycemia -s/p Dextrose drip with bicarb -Accu-Cheks every 6 -Hypoglycemic protocol The high probability of a clinically significant, sudden or life threatening deterioration of the [multi] system(s) required my full and direct attention, intervention and personal management. The aggregate critical care time was [60] minutes. This time is in addition to time spent performing reported procedures but includes the following: [x] Data Review and interpretation [x] Patient assessment and monitoring of vital signs [x] Documentation [x] Medication orders and management Disposition Plan: icu Total Time Spent with Patient (Minutes): 60 History Interval history: This is a 65-year-old male with ESLD secondary to cirrhosis from Hep C and EtOH abuse, recurrent ascites, rectal bleeding and anemia who presented to the emergency department 03/12 with shortness of breath, abdominal distention and COVID-19 infection. Patient was admitted to [facility] with the paracentesis and removal of 13 L of fluid and colonoscopy with GI due to intermittent rectal bleeding. Patient's daughter stated that he tested positive for COVID-19 the week prior to admission. In triage patient was found to have SPO2 of 70% on room air, tachypnea and tachycardia. Patient was placed on a BiPAP in the emergency department and hyperglycemia was treated with dextrose. Patient did not tolerate BiPAP as he kept removing it and was desaturating. At this time patient was intubated by the ED physician. CXR showed bilateral pneumonia and right-sided large pleural effusion, abdominal x-ray showed large volume ascites. Lab work showed leukocytosis, anemia, slightly elevated coag studies, mild renal insufficiency and elevated proBNP with elevated COVID-19 inflammatory markers. Patient was given antibiotics and Decadron and admitted to the hospitalist service with consults to pulmonology, GI and infectious disease. Hospital Course: 03/13: Awaiting PCCM, GI, ID input. Ordered CTA chest to rule out PE. Fluids increased due to concern for intravascular depletion. 03/14: Worsening hepatic transaminits, hypoglycemia noted. D/w GI and CCM reg arding worsening liver function, likely shock liver. Will attempt [place] transfer for hepatology services, call placed. Worsening renal function, consult placed to nephrology. 03/15: This morning decision was made by nephrology to initiate hemodialysis. Femoral Vas-Cath placed. Patient remains on Levophed and vasopressin and bicarbonate drip. Despite bicarbonate drip patient was acidotic on ABG and given additional 2 A of bicarb. Added phenyl epi gtt for HD if needed. I updated the daughter today while obtaining consent. 03/16: Patient had CT head today per neurology, supratherapeutic INR of six and given vitamin K and FFP follow, thrombocytopenia noted, patient is off of vasopressors. Metabolic acidosis resolved therefore bicarb drip discontinued. Hemoglobin 5.5 given 2 units PRBC. Potassium and mag repleted. NG tube to low intermittent suction. FiO2 decreased. serial h/h Hospitalist Physical - Physical exam Narrative exam: General appearance: Present: cachectic - EENT Eyes: Present: scleral icterus. Absent: PERRL ENT: poor dentition - Neck Neck: Present: other (dark spot noted on left eye, lower half. Bilateral eyes noted with cataracts). Absent: masses or JVD, cervical LAD - Respiratory Respiratory effort: normal Respiratory: bilateral: diminished - Cardiovascular Rhythm: regular Heart Sounds: Present: S1 & S2. Absent: systolic murmur, diastolic murmur - Extremities Extremities: no ischemia, pulses intact, pulses symmetrical, No edema, normal temperature Peripheral Pulses: within normal limits - Abdominal General gastrointestinal: soft, distended, hypoactive bowel sounds - Integumentary Integumentary: Present: warm, dry - Psychiatric Psychiatric: other - Neurologic Neurologic: other (pupils not reactive, no response to painful stimuli, weak cough/gag reflex.) - Constitutional Vitals: Temp Pulse Resp BP Pulse Ox 97.4 F L 99 H 24 152/94 95 03/16/21 16:00 03/16/21 18:15 03/16/21 18:15 03/16/21 18:15 03/16/21 18:15 General appearance: Present: cachectic HEART Score - HEART Score Troponin: Troponin T < 0.010 ng/mL (0.00-0.029) 03/12/21 18:54 Results - Labs CBC & Chem 7: 03/16/21 06:30 03/16/21 06:30 Labs: Laboratory Last Values WBC 15.5 K/mm3 (4.5-11.0) H 03/16/21 06:30 RBC 2.54 M/mm3 (3.65-5.03) L 03/16/21 06:30 Hgb 5.5 gm/dl (11.8-15.2) L* 03/16/21 06:30 Hct 19.1 % (35.5-45.6) L* D 03/16/21 06:30 MCV 75 fl (84-94) L 03/16/21 06:30 MCH 21 pg (28-32) L 03/16/21 06:30 MCHC 29 % (32-34) L 03/16/21 06:30 RDW 26.7 % (13.2-15.2) H 03/16/21 06:30 Plt Count 36 K/mm3 (140-440) L 03/16/21 06:30 Add Manual Diff Complete 03/14/21 05:34 Total Counted 100 03/14/21 05:34 Seg Neutrophils % Transit Planner 03/14/21 05:34 Seg Neuts % (Manual) 72.0 % (40.0-70.0) H 03/14/21 05:34 Band Neutrophils % 16.0 % 03/14/21 05:34 Lymphocytes % (Manual) 5.0 % (13.4-35.0) L 03/14/21 05:34 Reactive Lymphs % (Man) 0 % 03/14/21 05:34 Monocytes % (Manual) 4.0 % (0.0-7.3) 03/14/21 05:34 Eosinophils % (Manual) 0 % (0.0-4.3) 03/14/21 05:34 Basophils % (Manual) 0 % (0.0-1.8) 03/14/21 05:34 Metamyelocytes % 1.0 % 03/14/21 05:34 Myelocytes % 2.0 % 03/14/21 05:34 Promyelocytes % 0 % 03/14/21 05:34 Blast Cells % 0 % 03/14/21 05:34 Nucleated RBC % 7.0 % (0.0-0.9) H 03/14/21 05:34 Seg Neutrophils # Man 12.2 K/mm3 (1.8-7.7) H 03/14/21 05:34 Band Neutrophils # 2.7 K/mm3 03/14/21 05:34 Lymphocytes # (Manual) 0.8 K/mm3 (1.2-5.4) L 03/14/21 05:34 Abs React Lymphs (Man) 0.0 K/mm3 03/14/21 05:34 Monocytes # (Manual) 0.7 K/mm3 (0.0-0.8) 03/14/21 05:34 Eosinophils # (Manual) 0.0 K/mm3 (0.0-0.4) 03/14/21 05:34 Basophils # (Manual) 0.0 K/mm3 (0.0-0.1) 03/14/21 05:34 Metamyelocytes # 0.2 K/mm3 03/14/21 05:34 Myelocytes # 0.3 K/mm3 03/14/21 05:34 Promyelocytes # 0.0 K/mm3 03/14/21 05:34 Blast Cells # 0.0 K/mm3 03/14/21 05:34 Pathologist Review 03/14/21 05:34 WBC Morphology Not Reportable 03/13/21 14:32 Hypersegmented Neuts Not Reportable 03/14/21 05:34 Hyposegmented Neuts Not Reportable 03/14/21 05:34 Hypogranular Neuts Not Reportable 03/14/21 05:34 Smudge Cells Not Reportable 03/14/21 05:34 Toxic Granulation 1+ 03/14/21 05:34 Toxic Vacuolation Not Reportable 03/14/21 05:34 Dohle Bodies Not Reportable 03/14/21 05:34 Pelger-Huet Anomaly Not Reportable 03/14/21 05:34 Saqib Rods Not Reportable 03/14/21 05:34 Platelet Estimate Consistent w auto 03/14/21 05:34 Clumped Platelets Transit Planner 03/14/21 05:34 Plt Clumps, EDTA Not Reportable 03/14/21 05:34 Large Platelets Few 03/14/21 05:34 Giant Platelets Not Reportable 03/14/21 05:34 Platelet Satelliting Not Reportable 03/14/21 05:34 Plt Morphology Comment Not Reportable 03/14/21 05:34 RBC Morphology Not Reportable 03/14/21 05:34 Dimorphic RBCs Not Reportable 03/14/21 05:34 Polychromasia 1+ 03/14/21 05:34 Hypochromasia 2+ 03/14/21 05:34 Poikilocytosis Not Reportable 03/14/21 05:34 Anisocytosis 2+ 03/14/21 05:34 Microcytosis 1+ 03/14/21 05:34 Macrocytosis Not Reportable 03/14/21 05:34 Spherocytes Not Reportable 03/14/21 05:34 Pappenheimer Bodies Not Reportable 03/14/21 05:34 Sickle Cells Not Reportable 03/14/21 05:34 Target Cells 1+ 03/14/21 05:34 Tear Drop Cells Not Reportable 03/14/21 05:34 Ovalocytes Not Reportable 03/14/21 05:34 Helmet Cells Not Reportable 03/14/21 05:34 [place] Bodies Not Reportable 03/14/21 05:34 [place] Rings Not Reportable 03/14/21 05:34 Obdulio Cells 1+ 03/14/21 05:34 Bite Cells Not Reportable 03/14/21 05:34 Crenated Cell Not Reportable 03/14/21 05:34 Elliptocytes Not Reportable 03/14/21 05:34 Acanthocytes (Spur) Not Reportable 03/14/21 05:34 Rouleaux Not Reportable 03/14/21 05:34 Hemoglobin C Crystals Not Reportable 03/14/21 05:34 Schistocytes Not Reportable 03/14/21 05:34 Malaria parasites Not Reportable 03/14/21 05:34 Wolf Bodies Not Reportable 03/14/21 05:34 Hem Pathologist Commnt Sent to pathology 03/14/21 05:34 PT 58.3 Sec. (12.2-14.9) H 03/16/21 06:30 INR 6.13 (0.87-1.13) H* 03/16/21 06:30 APTT 38.7 Sec. (24.2-36.6) H 03/12/21 18:54 D-Dimer > 90740 ng/mlDDU (0-234) H 03/14/21 05:34 ABG pH 7.088 pH Units (7.350-7.450) L* 03/15/21 03:42 POC ABG pCO2 24.6 mmHg (32.0-48.0) L 03/14/21 05:00 ABG pCO2 21.2 mm Hg 03/15/21 03:42 POC ABG pO2 96.2 mmHg (83-108) 03/14/21 05:00 ABG pO2 90.7 mm Hg (80.0-90.0) H 03/15/21 03:42 POC ABG HCO3 8.7 03/14/21 05:00 ABG HCO3 6.2 mmol/L (20.0-26.0) L 03/15/21 03:42 ABG O2 Saturation 92.8 % (95.0-99.0) L 03/15/21 03:42 ABG O2 Content 11.6 (0.0-44) 03/15/21 03:42 POC ABG Base Excess -18.2 03/14/21 05:00 ABG Base Excess -21.8 mmol/L (-2.0-3.0) L 03/15/21 03:42 ABG Hemoglobin 8.9 gm/dl (14.0-18.0) L 03/15/21 03:42 ABG Oxyhemoglobin 94.9 (94-98) 03/14/21 05:00 ABG Carboxyhemoglobin 1.5 % (0.0-5.0) 03/15/21 03:42 ABG Methemoglobin 0.6 % (0.0-1.5) 03/15/21 03:42 ABG Sodium 135.2 mmol/L (136.0-145.0) L 03/14/21 05:00 ABG Potassium 5.5 mmol/L (3.40-4.50) H 03/14/21 05:00 ABG Chloride 106.0 mmol/L (98-107) 03/14/21 05:00 ABG Glucose 229 mg/dL (65-95) H 03/13/21 00:05 Oxyhemoglobin 90.8 % (95.0-99.0) L 03/15/21 03:42 Carboxyhemoglobin 0.7 (0.5-1.5) 03/14/21 05:00 FiO2 50 % 03/15/21 03:42 FiO2 % 40 03/14/21 05:00 Sodium 146 mmol/L (137-145) H 03/16/21 06:30 Potassium 3.1 mmol/L (3.6-5.0) L D 03/16/21 06:30 Chloride 98.2 mmol/L (98-107) 03/16/21 06:30 Carbon Dioxide 23 mmol/L (22-30) D 03/16/21 06:30 Anion Gap 28 mmol/L 03/16/21 06:30 BUN 27 mg/dL (9-20) H 03/16/21 06:30 Creatinine 1.8 mg/dL (0.8-1.3) H 03/16/21 06:30 Estimated GFR 38 ml/min 03/16/21 06:30 BUN/Creatinine Ratio 15 % 03/16/21 06:30 Glucose 140 mg/dL (75-100) H 03/16/21 06:30 POC Glucose 75 mg/dL (70-105) 03/16/21 18:44 Calcium 7.3 mg/dL (8.4-10.2) L D 03/16/21 06:30 Phosphorus 3.20 mg/dL (2.5-4.5) 03/16/21 06:30 Magnesium 1.60 mg/dL (1.7-2.3) L 03/16/21 06:30 Ferritin 6545.0 ng/mL (30.0-300.0) H 03/14/21 05:34 Total Bilirubin 3.10 mg/dL (0.1-1.2) H 03/16/21 06:30 AST 2233 units/L (5-40) H 03/16/21 06:30 ALT 409 units/L (7-56) H 03/16/21 06:30 Alkaline Phosphatase 156 units/L (35-129) H 03/16/21 06:30 Ammonia 72.0 umol/L (25-60) H 03/12/21 18:54 Lactate Dehydrogenase 2218 units/L (91-180) H 03/14/21 07:18 Troponin T < 0.010 ng/mL (0.00-0.029) 03/12/21 18:54 C-Reactive Protein 8.30 mg/dL (0.00-1.30) H 03/14/21 07:18 NT-Pro-B Natriuret Pep 1838 pg/mL (0-900) H 03/12/21 18:54 Total Protein 5.2 g/dL (6.3-8.2) L 03/16/21 06:30 Albumin 2.5 g/dL (3.9-5) L 03/16/21 06:30 Albumin/Globulin Ratio 0.9 % 03/16/21 06:30 Procalcitonin 8.67 ng/mL (<0.15) 03/12/21 19:04 Arterial Blood Glucose 229 mg/dL (65-95) H 03/13/21 00:05 Arterial Blood Ionized Calcium 4.3 mg/dL (4.6-5.3) L 03/14/21 05:00 Random Vancomycin 5.6 ug/mL (0-40.0) 03/16/21 06:30 Coronavirus (PCR) Positive (Negative) A 03/13/21 Unknown Hepatitis A IgM Ab Non-reactive (NonReactive) 03/14/21 05:34 Hep Bs Antigen Nonreactive (Negative) 03/14/21 05:34 Hep B Core IgM Ab Non-reactive (NonReactive) 03/14/21 05:34 Hepatitis C Antibody Reactive (NonReactive) A 03/14/21 05:34 Blood Type B POSITIVE 03/16/21 08:00 Antibody Screen Negative 03/16/21 08:00 Crossmatch See Detail 03/16/21 08:00 Microbiology: Microbiology 03/12/21 00:00 Tracheal Aspirate Sputum Culture - Final 03/12/21 21:07 Peripheral/Venous Blood Culture - Preliminary NO GROWTH AFTER 72 HOURS 03/12/21 21:00 Peripheral/Venous Blood Culture - Preliminary NO GROWTH AFTER 72 HOURS [place]/IV: Voiding Method Indwelling Catheter Active Medications - Current Medications Current Medications: Generic Name Dose Route Start Last Admin Trade Name Freq PRN Reason Stop Dose Admin Albuterol 2.5 mg 03/12/21 21:29 Albuterol 2.5 Mg/3 Ml Nebu IH Q4HRT PRN Shortness Of Breath Dexamethasone 6 mg 03/13/21 10:00 03/16/21 09:31 Dexamethasone 4 Mg/Ml Vial IV 03/22/21 10:01 6 mg DAILY STEPHEN Administration Dextrose 0 ml 03/15/21 10:00 03/15/21 13:34 Dextrose 50% In Water (25gm) 50 Ml Syringe IV 50 ml Q30MIN PRN Administration Hypoglycemia Protocol Famotidine 10 mg 03/16/21 10:00 03/16/21 12:49 Famotidine 10 Mg Tab FEEDTUBE 10 mg BID STEPHEN Administration Fentanyl 50 mcg 03/13/21 16:03 03/15/21 22:57 Fentanyl 100 Mcg/2 Ml Inj IV 50 mcg Q10MIN PRN Administration ANALGESIA Ferrous Sulfate 300 mg 03/13/21 10:00 03/16/21 09:31 Ferrous Sulfate 300 Mg (60mg Elemental Iron) / 5 Ml Oral Liqd PO 300 mg BID STEPHEN Administration Folic Acid 1 mg 03/13/21 10:00 03/16/21 09:30 Folic Acid 1 Mg Tab PO 1 mg QDAY STEPHEN Administration Hydromorphone HCl 0.5 mg 03/12/21 21:29 Hydromorphone 1 Mg/1 Ml Inj IV Q3H PRN Pain , Severe (7-10) Hydrophilic Ointment 1 applic 03/12/21 20:02 Lip Therapy Vaseline TP Q2HR PRN Dry Lips Ceftriaxone Sodium 2 gm in 100 mls @ 200 mls/hr 03/13/21 10:00 03/16/21 09:31 Rocephin/Ns 2 Gm/100 Ml IV 200 mls/hr Q24HR STEPHEN Administration Protocol Fentanyl Citrate 2,000 mcg in 100 mls @ 3.402 mls/hr 03/13/21 17:00 Fentanyl Drip Premix IV TITR STEPHEN Protocol 1 MCG/KG/HR NORepinephrine/NS 8 MG-250 ML 8 mg in 250 mls @ 3.75 mls/hr 03/13/21 21:00 03/16/21 18:23 Norepinephrine/Ns 8 Mg-250 Ml (Double Conc) IV 0 mcg/min TITRATE STEPHEN 0 mls/hr Titration Protocol 2 MCG/MIN Vasopressin 20 unit/ Sodium 101 mls @ 9.09 mls/hr 03/14/21 14:00 03/15/21 23:55 Chloride IV 0 units/min TITR STEPHEN 0 mls/hr Titration Protocol 0.03 UNITS/MIN Sodium Chloride 100 mls @ 999 mls/hr 03/15/21 10:00 Nacl 0.9% IV VICKEY PRN Hypotension Phenylephrine HCl 100 mg/ 100 mls @ 3 mls/hr 03/15/21 14:00 Sodium Chloride IV TITR STEPHEN Protocol 50 MCG/MIN Sodium Chloride 500 mls @ 0 mls/hr 03/16/21 07:39 Nacl 0.9% 500 Ml IV 03/16/21 23:59 ONCE NR As Directed Vancomycin HCl 1 gm in 250 mls @ 166.667 mls/hr 03/16/21 10:00 03/16/21 09:31 Vancomycin/Ns 1 Gm/250 Ml IV 166.667 mls/hr Q24HR STEPHEN Administration Dextrose/Sodium Chloride 1,000 mls @ 42 mls/hr 03/16/21 13:00 D5/0.45ns IV DIRECT STEPHEN Multi-Ingred Cream/Lotion/Oil/Oint 1 applic 03/12/21 20:02 Mineral Oil/Petrolatum, White Ophth Oint 3.5 Gm OU Q4HR PRN Dry Eye(s) Ondansetron HCl 4 mg 03/12/21 21:29 Ondansetron 4 Mg/2 Ml Inj IV Q8H PRN Nausea And Vomiting Senna/Docusate Sodium 1 tab 03/12/21 22:00 03/16/21 09:30 Sennosides/Docusate Sodium 8.6/50 Mg Tab FEEDTUBE 1 tab BID STEPHEN Administration Sodium Chloride 10 ml 03/12/21 22:00 03/16/21 09:32 Sodium Chloride 0.9% 10 Ml Flush Syringe IV 10 ml BID STEPHEN Administration Sodium Chloride 10 ml 03/12/21 21:29 Sodium Chloride 0.9% 10 Ml Flush Syringe IV PRN PRN LINE FLUSH Thiamine HCl 100 mg 03/13/21 10:00 03/16/21 09:30 Thiamine 100 Mg Tab PO 100 mg QDAY STEPHEN Administration Nutrition/Malnutrition Assess - Dietary Evaluation Nutrition/Malnutrition Findings: Nutrition Notes Start: 03/13/21 17:20 Freq: Status: Active Protocol: Document 03/15/21 12:38 GERALD (Rec: 03/15/21 12:56 GERALD [id number]) Nutrition Notes Initial or Follow up Brief Note Current Diet TF-Vital AF 1.2 Fran @ 56 ml/hr (since B 03/14). Height 5 ft 11 in Weight 61.2 kg Jackson Body Weight (kg) 78.18 BMI 18.8 Intake Prior to Admission Good Weight change and time frame Pt stated not having loss body weight [facility] [employer]. Discrepancy of 6.83 Kg body weight loss in 2 days reported . Weight Status Appropriate Subjective/Other Information RD consult for routine F/U on TF tolerance and Skin and Malnutrition risk assessment. Pt shows no signs of concern for skin or malnutrition risk at the time, according to Physical Assessment History notes. TF continues as prescribed, therefore, well tolerated. Procedure: Vascath trialysis catheter in R-femoral vein placed. Percent of energy/protein needs met: Prescribed Vital AF 1.2 Fran @ 56 ml/hr provides for energy/ protein needs (1,600 Kcal/100 g) during LOS, 100% Kcal; 100% AA. #1 Nutrition Diagnosis Inadequate oral intake Diagnosis Progress(for reassessment Continues documentation) Nutrition Intervention Nutrition Support: Continue Vital AF 1.2 Fran @ 56 ml/hr. Flush: 90 ml water Q 4 hr, or as per MD. % RDI: 100% Kcal; 100% AA. Goal #1 Provide at least 75% of energy /protein needs through Enteral Feeding during LOS. Follow-Up By: 03/22/21 Additional Comments Continue monitoring TF tolerance and BM. F/U to check TF tolerance. <JOSIE HESS - Last Filed: 03/24/21 13:15> Assessment and Plan Assessment and plan: I saw and evaluated the patient. Discussed with the nurse practitioner and agree with their findings and plan as documented in this note. Hospitalist Physical - Constitutional Vitals: Temp Pulse Resp BP Pulse Ox 97.4 F L 130 H 0 L 52/38 0 L 03/22/21 23:42 03/23/21 01:45 03/23/21 02:01 03/23/21 02:01 03/23/21 02:10 HEART Score - HEART Score Troponin: Troponin T < 0.010 ng/mL (0.00-0.029) 03/12/21 18:54 Results - Labs CBC & Chem 7: 03/22/21 04:00 03/22/21 23:20 Labs: Laboratory Last Values WBC 18.8 K/mm3 (4.5-11.0) H 03/22/21 04:00 RBC 3.97 M/mm3 (3.65-5.03) 03/22/21 04:00 Hgb 9.8 gm/dl (11.8-15.2) L 03/22/21 04:00 Hct 34.0 % (35.5-45.6) L 03/22/21 04:00 MCV 86 fl (84-94) 03/22/21 04:00 MCH 25 pg (28-32) L 03/22/21 04:00 MCHC 29 % (32-34) L 03/22/21 04:00 RDW 29.6 % (13.2-15.2) H 03/22/21 04:00 Plt Count 26 K/mm3 (140-440) L D 03/22/21 04:00 Add Manual Diff Complete 03/14/21 05:34 Total Counted 100 03/14/21 05:34 Seg Neutrophils % Transit Planner 03/14/21 05:34 Seg Neuts % (Manual) 72.0 % (40.0-70.0) H 03/14/21 05:34 Band Neutrophils % 16.0 % 03/14/21 05:34 Lymphocytes % (Manual) 5.0 % (13.4-35.0) L 03/14/21 05:34 Reactive Lymphs % (Man) 0 % 03/14/21 05:34 Monocytes % (Manual) 4.0 % (0.0-7.3) 03/14/21 05:34 Eosinophils % (Manual) 0 % (0.0-4.3) 03/14/21 05:34 Basophils % (Manual) 0 % (0.0-1.8) 03/14/21 05:34 Metamyelocytes % 1.0 % 03/14/21 05:34 Myelocytes % 2.0 % 03/14/21 05:34 Promyelocytes % 0 % 03/14/21 05:34 Blast Cells % 0 % 03/14/21 05:34 Nucleated RBC % 7.0 % (0.0-0.9) H 03/14/21 05:34 Seg Neutrophils # Man 12.2 K/mm3 (1.8-7.7) H 03/14/21 05:34 Band Neutrophils # 2.7 K/mm3 03/14/21 05:34 Lymphocytes # (Manual) 0.8 K/mm3 (1.2-5.4) L 03/14/21 05:34 Abs React Lymphs (Man) 0.0 K/mm3 03/14/21 05:34 Monocytes # (Manual) 0.7 K/mm3 (0.0-0.8) 03/14/21 05:34 Eosinophils # (Manual) 0.0 K/mm3 (0.0-0.4) 03/14/21 05:34 Basophils # (Manual) 0.0 K/mm3 (0.0-0.1) 03/14/21 05:34 Metamyelocytes # 0.2 K/mm3 03/14/21 05:34 Myelocytes # 0.3 K/mm3 03/14/21 05:34 Promyelocytes # 0.0 K/mm3 03/14/21 05:34 Blast Cells # 0.0 K/mm3 03/14/21 05:34 Pathologist Review 03/14/21 05:34 WBC Morphology Not Reportable 03/14/21 05:34 Hypersegmented Neuts Not Reportable 03/14/21 05:34 Hyposegmented Neuts Not Reportable 03/14/21 05:34 Hypogranular Neuts Not Reportable 03/14/21 05:34 Smudge Cells Not Reportable 03/14/21 05:34 Toxic Granulation 1+ 03/14/21 05:34 Toxic Vacuolation Not Reportable 03/14/21 05:34 Dohle Bodies Not Reportable 03/14/21 05:34 Pelger-Huet Anomaly Not Reportable 03/14/21 05:34 Saqib Rods Not Reportable 03/14/21 05:34 Platelet Estimate Consistent w auto 03/14/21 05:34 Clumped Platelets Transit Planner 03/14/21 05:34 Plt Clumps, EDTA Not Reportable 03/14/21 05:34 Large Platelets Few 03/14/21 05:34 Giant Platelets Not Reportable 03/14/21 05:34 Platelet Satelliting Not Reportable 03/14/21 05:34 Plt Morphology Comment Not Reportable 03/14/21 05:34 RBC Morphology Not Reportable 03/14/21 05:34 Dimorphic RBCs Not Reportable 03/14/21 05:34 Polychromasia 1+ 03/14/21 05:34 Hypochromasia 2+ 03/14/21 05:34 Poikilocytosis Not Reportable 03/14/21 05:34 Anisocytosis 2+ 03/14/21 05:34 Microcytosis 1+ 03/14/21 05:34 Macrocytosis Not Reportable 03/14/21 05:34 Spherocytes Not Reportable 03/14/21 05:34 Pappenheimer Bodies Not Reportable 03/14/21 05:34 Sickle Cells Not Reportable 03/14/21 05:34 Target Cells 1+ 03/14/21 05:34 Tear Drop Cells Not Reportable 03/14/21 05:34 Ovalocytes Not Reportable 03/14/21 05:34 Helmet Cells Not Reportable 03/14/21 05:34 [place] Bodies Not Reportable 03/14/21 05:34 [place] Rings Not Reportable 03/14/21 05:34 Obdulio Cells 1+ 03/14/21 05:34 Bite Cells Not Reportable 03/14/21 05:34 Crenated Cell Not Reportable 03/14/21 05:34 Elliptocytes Not Reportable 03/14/21 05:34 Acanthocytes (Spur) Not Reportable 03/14/21 05:34 Rouleaux Not Reportable 03/14/21 05:34 Hemoglobin C Crystals Not Reportable 03/14/21 05:34 Schistocytes Not Reportable 03/14/21 05:34 Malaria parasites Not Reportable 03/14/21 05:34 Wolf Bodies Not Reportable 03/14/21 05:34 Hem Pathologist Commnt Sent to pathology 03/14/21 05:34 PT 23.6 Sec. (12.2-14.9) H 03/19/21 04:00 INR 1.91 (0.87-1.13) H 03/19/21 04:00 APTT 38.7 Sec. (24.2-36.6) H 03/12/21 18:54 D-Dimer > 90243 ng/mlDDU (0-234) H 03/21/21 Unknown ABG pH 7.093 pH Units (7.350-7.450) L* 03/23/21 01:40 POC ABG pCO2 38.3 mmHg (32.0-48.0) 03/18/21 04:14 ABG pCO2 71.1 mm Hg 03/23/21 01:40 POC ABG pO2 73.1 mmHg (83-108) L 03/18/21 04:14 ABG pO2 28.4 mm Hg (80.0-90.0) L* 03/23/21 01:40 POC ABG HCO3 31.6 03/18/21 04:14 ABG HCO3 21.2 mmol/L (20.0-26.0) 03/23/21 01:40 ABG O2 Saturation 26.3 % (95.0-99.0) L 03/23/21 01:40 ABG O2 Content 3.5 (0.0-44) 03/23/21 01:40 POC ABG Base Excess 8.4 03/18/21 04:14 ABG Base Excess -8.8 mmol/L (-2.0-3.0) L 03/23/21 01:40 ABG Hemoglobin 9.6 gm/dl (14.0-18.0) L 03/23/21 01:40 ABG Oxyhemoglobin 93.6 (94-98) L 03/18/21 04:14 ABG Carboxyhemoglobin 1.4 % (0.0-5.0) 03/23/21 01:40 ABG Methemoglobin 0.9 % (0.0-1.5) 03/23/21 01:40 ABG Sodium 140.2 mmol/L (136.0-145.0) 03/18/21 04:14 ABG Potassium 3.3 mmol/L (3.40-4.50) L 03/18/21 04:14 ABG Chloride 102.0 mmol/L (98-107) 03/18/21 04:14 ABG Glucose 193 mg/dL (65-95) H 03/18/21 04:14 Oxyhemoglobin 25.7 % (95.0-99.0) L 03/23/21 01:40 Carboxyhemoglobin 0.7 (0.5-1.5) 03/18/21 04:14 FiO2 100 % 03/23/21 01:40 FiO2 % 40.0 03/18/21 04:14 Sodium 145 mmol/L (137-145) 03/22/21 04:00 Potassium 5.1 mmol/L (3.6-5.0) H 03/22/21 04:00 Chloride 104.8 mmol/L (98-107) 03/22/21 04:00 Carbon Dioxide 18 mmol/L (22-30) L 03/22/21 04:00 Anion Gap 27 mmol/L 03/22/21 04:00 BUN 73 mg/dL (9-20) H 03/22/21 04:00 Creatinine 1.2 mg/dL (0.8-1.3) D 03/22/21 04:00 Estimated GFR > 60 ml/min 03/22/21 04:00 BUN/Creatinine Ratio 61 % 03/22/21 04:00 Glucose 150 mg/dL (75-100) H 03/22/21 23:20 POC Glucose 120 mg/dL (70-105) H 03/23/21 01:33 Calcium 9.2 mg/dL (8.4-10.2) 03/22/21 04:00 Phosphorus 3.50 mg/dL (2.5-4.5) 03/20/21 05:48 Magnesium 2.20 mg/dL (1.7-2.3) 03/20/21 05:48 Ferritin 443.8 ng/mL (30.0-300.0) H 03/21/21 Unknown Total Bilirubin 14.00 mg/dL (0.1-1.2) H 03/22/21 04:00 AST 146 units/L (5-40) H 03/22/21 04:00 ALT 132 units/L (7-56) H 03/22/21 04:00 Alkaline Phosphatase 108 units/L (35-129) 03/22/21 04:00 Ammonia 27.0 umol/L (25-60) 03/20/21 05:48 Lactate Dehydrogenase 693 units/L (91-180) H 03/21/21 Unknown Troponin T < 0.010 ng/mL (0.00-0.029) 03/12/21 18:54 C-Reactive Protein 5.00 mg/dL (0.00-1.30) H 03/21/21 Unknown NT-Pro-B Natriuret Pep 1838 pg/mL (0-900) H 03/12/21 18:54 Total Protein 5.2 g/dL (6.3-8.2) L 03/22/21 04:00 Albumin 1.8 g/dL (3.9-5) L 03/22/21 04:00 Albumin/Globulin Ratio 0.5 % 03/22/21 04:00 Procalcitonin 11.74 ng/mL (<0.15) 03/21/21 10:46 Arterial Blood Glucose 193 mg/dL (65-95) H 03/18/21 04:14 Arterial Blood Ionized Calcium 4.4 mg/dL (4.6-5.3) L 03/18/21 04:14 Urine Color Sabrina (Yellow) 03/21/21 10:20 Urine Turbidity Cloudy (Clear) 03/21/21 10:20 Urine pH 5.0 (5.0-7.0) 03/21/21 10:20 Ur Specific [place] 1.019 (1.003-1.030) 03/21/21 10:20 Urine Protein 30 mg/dl mg/dL (Negative) 03/21/21 10:20 Urine Glucose (UA) Neg mg/dL (Negative) 03/21/21 10:20 Urine Ketones Neg mg/dL (Negative) 03/21/21 10:20 Urine Blood Mod (Negative) 03/21/21 10:20 Urine Nitrite Neg (Negative) 03/21/21 10:20 Urine Bilirubin Sm (Negative) 03/21/21 10:20 Urine Ictotest Positive (Negative) 03/21/21 10:20 Urine Urobilinogen 2.0 mg/dL (<2.0) 03/21/21 10:20 Ur Leukocyte Esterase Neg (Negative) 03/21/21 10:20 Urine WBC (Auto) 24.0 /HPF (0.0-6.0) H 03/21/21 10:20 Urine RBC (Auto) 8.0 /HPF (0.0-6.0) 03/21/21 10:20 U Epithel Cells (Auto) 3.0 /HPF (0-13.0) 03/21/21 10:20 Hyaline Casts 1 /LPF 03/21/21 10:20 Granular Casts 9 /LPF 03/21/21 10:20 Urine Mucus Few /HPF 03/21/21 10:20 Fluid Type Paracentesis 03/21/21 13:30 Fluid Color Yellow 03/21/21 13:30 Fluid Appearance Hazy 03/21/21 13:30 Fluid WBC 15 /mm3 03/21/21 13:30 Fluid RBC 221 /mm3 03/21/21 13:30 Fluid Seg Neutrophils 50.0 % 03/21/21 13:30 Fluid Lymphocytes 35.0 % 03/21/21 13:30 Fluid Monocytes 15.0 % 03/21/21 13:30 Random Vancomycin 5.6 ug/mL (0-40.0) 03/16/21 06:30 Coronavirus (PCR) Positive (Negative) A 03/13/21 Unknown Hepatitis A IgM Ab Non-reactive (NonReactive) 03/14/21 05:34 Hep Bs Antigen Nonreactive (Negative) 03/14/21 05:34 Hep B Core IgM Ab Non-reactive (NonReactive) 03/14/21 05:34 Hepatitis C Antibody Reactive (NonReactive) A 03/14/21 05:34 Blood Type B POSITIVE 03/16/21 08:00 Antibody Screen Negative 03/16/21 08:00 Crossmatch See Detail 03/16/21 08:00 Microbiology: Microbiology 03/21/21 13:30 Ascities Fluid Body Fluid Culture - Preliminary 03/21/21 10:46 Peripheral/Venous Blood Culture - Preliminary NO GROWTH AFTER 72 HOURS 03/21/21 10:46 Peripheral/Venous Blood Culture - Preliminary NO GROWTH AFTER 72 HOURS 03/21/21 13:40 Tracheal Aspirate Sputum Culture - Final 03/21/21 10:20 Urine,Clean Catch Urine Culture - Final NO GROWTH AFTER 48 HOURS [place]/IV: Voiding Method Indwelling Catheter Nutrition/Malnutrition Assess - Dietary Evaluation Nutrition/Malnutrition Findings: Nutrition Notes Start: 03/13/21 17:20 Freq: Status: Discharge Protocol: Document 03/21/21 14:19 GERALD (Rec: 03/21/21 14:47 GERALD [email or web address]) Nutrition Notes Initial or Follow up Brief Note Current Diet TF remains on hold. Height 5 ft 11 in Weight 61.2 kg [place] Body Weight (kg) 78.18 BMI 18.8 Weight change and time frame No body weight change reported . Weight Status Underweight Subjective/Other Information RD consult on TF resume and tolerance. TF remains on hold. Pt continues on Mechanical Ventilation. As per MD, discussion with family regarding Trach and PEG due to mental satus and poor prognosis. TF resumed 9:30 03/20 @ 20 ml/ hr. TF stopped 02:50 03/21, stomach distended and labored breathing, 250 ml residuals. Incident with necrotic fingers on 03/20. Percent of energy/protein needs met: TF remains on hold. Nutrition Intervention Follow-Up By: 03/23/21 Additional Comments F/U: TF restart/tolerance
[2021-03-16 22:36] LABS: Mean Corpuscular HGB Conc 30 % (32-34); Mean Corpuscular Volume 79 fl (84-94); Red Blood Count 4.02 M/mm3 (3.65-5.03)
[2021-03-16 22:44] LABS: Platelet Count 27 K/mm3 (140-440)
[2021-03-16 22:45] LABS: Hematocrit 31.9 % (35.5-45.6); Hemoglobin 9.7 gm/dl (11.8-15.2)
[2021-03-16 22:52] LABS: INR 2.63 (0.87-1.13)
[2021-03-17] MEDS: DEXTROSE 50% IN WATER (25GM) 50 ML SYRINGE IV PRN (00:48)
[2021-03-17] MEDS: SENNOSIDES/DOCUSATE SODIUM 8.6/50 MG TAB FEEDTUBE SCH ×3 (02:55→21:54)
--- NOTE | 2021-03-17 04:57 | XRay Report ---
CHEST 1 VIEW 03/17/2021 3:26 AM INDICATION / CLINICAL INFORMATION: follow up respiratory failure. COMPARISON: 03/16/21 FINDINGS: SUPPORT DEVICES: Unchanged. HEART / MEDIASTINUM: Stable. LUNGS / PLEURA: Bilateral pulmonary opacities are unchanged. No pneumothorax. ADDITIONAL FINDINGS: No significant additional findings. IMPRESSION: 1. No significant change. Signer Name: Damion Mckinney MD Signed: 03/17/2021 4:52 AM Workstation Name: [email or web address]
[2021-03-17 05:33] LABS: Hematocrit 30.3 % (35.5-45.6); Hemoglobin 9.3 gm/dl (11.8-15.2); Mean Corpuscular HGB Conc 31 % (32-34); Mean Corpuscular Volume 78 fl (84-94); Red Blood Count 3.86 M/mm3 (3.65-5.03)
[2021-03-17 05:35] LABS: Platelet Count 20 K/mm3 (140-440); Red Cell Distribution Width 26.2 % (13.2-15.2)
[2021-03-17 05:44] LABS: INR 2.58 (0.87-1.13)
[2021-03-17 05:50] LABS: Albumin 2.3 g/dL (3.9-5)
[2021-03-17] MEDS ORDERED: POTASSIUM CHLORIDE 20 MEQ 20 MEQ/100 ML BAG IV ONE (05:56)
[2021-03-17] MEDS ORDERED: POTASSIUM CHLORIDE 20 MEQ PACKET FEEDTUBE SCH (08:00)
--- NOTE | 2021-03-17 08:35 | Progress Note ---
Assessment and Plan Impression: * IVON--ATN * sepsis * acute hypoxic resp failure * COVID PNA * Hepatitis * hyperkalemia--resolved * hypokalemia * refractory acidosis Plan: * k and co2 noted, s/p hemodialysis for correction of acidosis and hyperkalemia * follow up lytes in am to assess for continued need for GRAD[employer] 1 [employer] 6 [employer] * no plans for hd today, can remove vasc cath * replete k prn * continue ivfs, added albumin * kayexlate prn * daily lytes, strict i/os * keep MAP >65, vasopressors prn * avoid nephrotoxins Subjective Date of service: 03/17/21 Principal diagnosis: ivon Interval history: labs and chart reviewed events noted Objective - Exam Narrative Exam: Physical Exam: exam deferred, primary team exam noted - Vital Signs Vital signs: Vital Signs - 12hr 03/16/21 03/16/21 03/16/21 20:46 21:00 21:15 Temperature Pulse Rate 108 H 97 H 96 H Pulse Rate [ From Monitor] Respiratory 24 27 H 24 Rate Blood Pressure 126/90 125/78 114/72 O2 Sat by Pulse 87 100 100 Oximetry 03/16/21 03/16/21 03/16/21 21:30 21:46 22:00 Temperature Pulse Rate 101 H 106 H 108 H Pulse Rate [ From Monitor] Respiratory 31 H 36 H 22 Rate Blood Pressure 115/79 115/81 115/81 O2 Sat by Pulse 98 100 Oximetry 03/16/21 03/16/21 03/16/21 22:15 22:30 22:45 Temperature Pulse Rate 100 H 110 H 100 H Pulse Rate [ From Monitor] Respiratory 26 H 29 H 30 H Rate Blood Pressure 105/73 104/77 135/84 O2 Sat by Pulse 100 100 100 Oximetry 03/16/21 03/16/21 03/16/21 23:00 23:15 23:30 Temperature Pulse Rate 105 H 105 H 98 H Pulse Rate [ From Monitor] Respiratory 21 30 H 31 H Rate Blood Pressure 129/82 117/84 116/77 O2 Sat by Pulse 100 100 100 Oximetry 03/16/21 03/17/21 03/17/21 23:45 00:00 00:15 Temperature 99.1 F Pulse Rate 92 H 96 H 94 H Pulse Rate [ 93 H From Monitor] Respiratory 18 31 H 30 H Rate Blood Pressure 106/69 111/73 115/74 O2 Sat by Pulse 100 100 100 Oximetry 03/17/21 03/17/21 03/17/21 00:30 00:45 01:00 Temperature Pulse Rate 100 H 101 H 95 H Pulse Rate [ From Monitor] Respiratory 20 30 H 26 H Rate Blood Pressure 102/74 109/80 110/68 O2 Sat by Pulse 100 100 100 Oximetry 03/17/21 03/17/21 03/17/21 01:15 01:30 01:45 Temperature Pulse Rate 102 H 96 H 96 H Pulse Rate [ From Monitor] Respiratory 26 H 25 H 24 Rate Blood Pressure 113/82 103/70 110/70 O2 Sat by Pulse 100 100 100 Oximetry 03/17/21 03/17/21 03/17/21 02:00 02:15 02:30 Temperature Pulse Rate 102 H 91 H 93 H Pulse Rate [ From Monitor] Respiratory 22 11 L 23 Rate Blood Pressure 126/81 113/80 113/80 O2 Sat by Pulse 100 100 100 Oximetry 03/17/21 03/17/21 03/17/21 02:45 03:00 03:15 Temperature Pulse Rate 92 H 87 99 H Pulse Rate [ From Monitor] Respiratory 25 H 21 23 Rate Blood Pressure 110/60 105/64 113/77 O2 Sat by Pulse 100 100 97 Oximetry 03/17/21 03/17/21 03/17/21 03:23 03:26 03:28 Temperature 98.1 F Pulse Rate 94 H 98 H Pulse Rate [ From Monitor] Respiratory Rate Blood Pressure 113/77 O2 Sat by Pulse 100 Oximetry 03/17/21 03/17/21 03/17/21 03:30 03:45 03:52 Temperature Pulse Rate 98 H 89 Pulse Rate [ 100 H From Monitor] Respiratory 25 H 23 30 H Rate Blood Pressure 123/81 118/69 O2 Sat by Pulse 100 100 98 Oximetry 03/17/21 03/17/21 03/17/21 04:00 04:15 04:30 Temperature Pulse Rate 95 H 91 H 100 H Pulse Rate [ From Monitor] Respiratory 29 H 29 H 20 Rate Blood Pressure 125/78 112/61 126/75 O2 Sat by Pulse 98 95 97 Oximetry 03/17/21 03/17/21 03/17/21 04:45 05:00 05:15 Temperature Pulse Rate 100 H 93 H 105 H Pulse Rate [ From Monitor] Respiratory 32 H 19 16 Rate Blood Pressure 133/80 116/78 105/81 O2 Sat by Pulse 99 99 99 Oximetry 03/17/21 03/17/21 03/17/21 05:30 05:40 06:00 Temperature Pulse Rate 103 H 88 105 H Pulse Rate [ From Monitor] Respiratory 33 H 19 29 H Rate Blood Pressure 124/85 124/85 138/87 O2 Sat by Pulse 99 100 100 Oximetry 03/17/21 03/17/21 03/17/21 06:15 06:30 06:45 Temperature Pulse Rate 110 H 104 H 108 H Pulse Rate [ From Monitor] Respiratory 23 25 H 19 Rate Blood Pressure 132/78 115/83 122/81 O2 Sat by Pulse 98 98 100 Oximetry 03/17/21 03/17/21 03/17/21 07:00 07:15 07:30 Temperature Pulse Rate 111 H 99 H 112 H Pulse Rate [ From Monitor] Respiratory 18 19 18 Rate Blood Pressure 126/78 136/78 114/78 O2 Sat by Pulse 100 99 98 Oximetry 03/17/21 03/17/21 03/17/21 07:45 07:50 08:00 Temperature 98.6 F Pulse Rate 109 H 111 H Pulse Rate [ 97 H From Monitor] Respiratory 25 H 19 Rate Blood Pressure 128/82 106/83 O2 Sat by Pulse 99 98 Oximetry - Lab 03/17/21 04:19 03/17/21 04:19 Most recent lab results ABG pH 7.614 (7.320-7.450) H 03/17/21 02:34 ABG pCO2 21.2 mm Hg 03/15/21 03:42 ABG pO2 90.7 mm Hg (80.0-90.0) H 03/15/21 03:42 ABG HCO3 6.2 mmol/L (20.0-26.0) L 03/15/21 03:42 ABG O2 Saturation 95.2 (0-100) 03/17/21 02:34 Calcium 8.0 mg/dL (8.4-10.2) L 03/17/21 04:19 Phosphorus 3.20 mg/dL (2.5-4.5) 03/16/21 06:30 Magnesium 2.40 mg/dL (1.7-2.3) H 03/17/21 04:19 Medications & Allergies - Medications Allergies/Adverse Reactions: Allergies No Known Allergies Allergy (Verified 02/27/21 20:19) Home Medications: Home Medications Medication Instructions Recorded Confirmed Last Taken Type Ferrous Sulfate [Feosol 325 MG tab] 325 mg PO BID #30 tablet 03/04/21 Unknown Rx Folic Acid [Folvite] 1 mg PO QDAY #30 tablet 03/04/21 Unknown Rx Spironolactone [Aldactone] 50 mg PO QDAY #30 tablet 03/04/21 Unknown Rx Thiamine [Vitamin B-1] 100 mg PO QDAY #30 tablet 03/04/21 Unknown Rx Active Medications: Generic Name Dose Route Start Last Admin Trade Name Freq PRN Reason Stop Dose Admin Albuterol 2.5 mg 03/12/21 21:29 Albuterol 2.5 Mg/3 Ml Nebu IH Q4HRT PRN Shortness Of Breath Dexamethasone 6 mg 03/13/21 10:00 03/16/21 09:31 Dexamethasone 4 Mg/Ml Vial IV 03/22/21 10:01 6 mg DAILY STEPHEN Administration Dextrose 0 ml 03/15/21 10:00 03/17/21 00:48 Dextrose 50% In Water (25gm) 50 Ml Syringe IV 20 ml Q30MIN PRN Administration Hypoglycemia Protocol Famotidine 10 mg 03/16/21 10:00 03/16/21 23:28 Famotidine 10 Mg Tab FEEDTUBE 10 mg BID STEPHEN Administration Fentanyl 50 mcg 03/13/21 16:03 03/15/21 22:57 Fentanyl 100 Mcg/2 Ml Inj IV 50 mcg Q10MIN PRN Administration ANALGESIA Ferrous Sulfate 300 mg 03/13/21 10:00 03/16/21 23:28 Ferrous Sulfate 300 Mg (60mg Elemental Iron) / 5 Ml Oral Liqd PO 300 mg BID STEPHEN Administration Folic Acid 1 mg 03/13/21 10:00 03/16/21 09:30 Folic Acid 1 Mg Tab PO 1 mg QDAY STEPHEN Administration Hydromorphone HCl 0.5 mg 03/12/21 21:29 Hydromorphone 1 Mg/1 Ml Inj IV Q3H PRN Pain , Severe (7-10) Hydrophilic Ointment 1 applic 03/12/21 20:02 Lip Therapy Vaseline TP Q2HR PRN Dry Lips Ceftriaxone Sodium 2 gm in 100 mls @ 200 mls/hr 03/13/21 10:00 03/16/21 09:31 Rocephin/Ns 2 Gm/100 Ml IV 200 mls/hr Q24HR STEPHEN Administration Protocol Fentanyl Citrate 2,000 mcg in 100 mls @ 3.402 mls/hr 03/13/21 17:00 Fentanyl Drip Premix IV TITR STEPHEN Protocol 1 MCG/KG/HR NORepinephrine/NS 8 MG-250 ML 8 mg in 250 mls @ 3.75 mls/hr 03/13/21 21:00 03/16/21 18:23 Norepinephrine/Ns 8 Mg-250 Ml (Double Conc) IV 0 mcg/min TITRATE STEPHEN 0 mls/hr Titration Protocol 2 MCG/MIN Vasopressin 20 unit/ Sodium 101 mls @ 9.09 mls/hr 03/14/21 14:00 03/15/21 23:55 Chloride IV 0 units/min TITR STEPHEN 0 mls/hr Titration Protocol 0.03 UNITS/MIN Sodium Chloride 100 mls @ 999 mls/hr 03/15/21 10:00 Nacl 0.9% IV VICKEY PRN Hypotension Phenylephrine HCl 100 mg/ 100 mls @ 3 mls/hr 03/15/21 14:00 Sodium Chloride IV TITR STEPHEN Protocol 50 MCG/MIN Vancomycin HCl 1 gm in 250 mls @ 166.667 mls/hr 03/16/21 10:00 03/16/21 09:31 Vancomycin/Ns 1 Gm/250 Ml IV 166.667 mls/hr Q24HR STEPHEN Administration Dextrose/Sodium Chloride 1,000 mls @ 42 mls/hr 03/16/21 13:00 03/17/21 02:09 D5/0.45ns IV 42 mls/hr DIRECT STEPHEN Administration Multi-Ingred Cream/Lotion/Oil/Oint 1 applic 03/12/21 20:02 Mineral Oil/Petrolatum, White Ophth Oint 3.5 Gm OU Q4HR PRN Dry Eye(s) Ondansetron HCl 4 mg 03/12/21 21:29 Ondansetron 4 Mg/2 Ml Inj IV Q8H PRN Nausea And Vomiting Potassium Chloride 20 meq 03/17/21 08:00 Potassium Chloride 20 Meq Packet FEEDTUBE 03/17/21 12:00 ONCE@0800 STEPHEN Senna/Docusate Sodium 1 tab 03/12/21 22:00 03/17/21 02:55 Sennosides/Docusate Sodium 8.6/50 Mg Tab FEEDTUBE Not Given BID STEPHEN Sodium Chloride 10 ml 03/12/21 22:00 03/16/21 23:28 Sodium Chloride 0.9% 10 Ml Flush Syringe IV 10 ml BID STEPHEN Administration Sodium Chloride 10 ml 03/12/21 21:29 Sodium Chloride 0.9% 10 Ml Flush Syringe IV PRN PRN LINE FLUSH Thiamine HCl 100 mg 03/13/21 10:00 03/16/21 09:30 Thiamine 100 Mg Tab PO 100 mg QDAY STEPHEN Administration
[2021-03-17] MEDS ORDERED: D5W/0.45% NACL 1,000 ML with POTASSIUM CHLORIDE 20 MEQ IV SCH (08:41)
[2021-03-17] MEDS: VANCOMYCIN/NS 1 GM/250 ML 1 GM/250 ML BAG IV SCH (10:19)
[2021-03-17] MEDS: FAMOTIDINE 10 MG TAB FEEDTUBE SCH (10:19)
[2021-03-17] MEDS: FERROUS SULFATE 300 MG (60MG Elemental Iron) / 5 mL ORAL LIQD PO SCH ×2 (10:19→21:54)
[2021-03-17] MEDS: THIAMINE 100 MG TAB PO SCH (10:20)
[2021-03-17] MEDS: FOLIC ACID 1 MG TAB PO SCH (10:20)
[2021-03-17] MEDS: D5W/0.45% NACL/KCL 20 MEQ 20 MEQ/1,000 ML BAG IV SCH ×2 (10:20→21:01)
[2021-03-17] MEDS: cefTRIAXone/NS 2 GM/100 ML 2 GM/100 ML BAG IV SCH (10:20)
[2021-03-17] MEDS: dexAMETHasone 4 MG/ML VIAL IV SCH (10:20)
--- NOTE | 2021-03-17 11:18 | Gastroenterology Progress Note ---
Assessment and Plan - Patient Problems (1) Abnormal liver enzymes Current Visit: Yes Status: Acute Plan to address problem: - Likely acute ischemic injury from sepsis more than EtOH/Hep C infection. - Underlying cirrhosis with ascites (paracentesis last month). - Hold diuretics for now; continue protonix. - MVI therapy, and re-start nutrition with tube feeds. (2) Acute blood loss anemia Current Visit: Yes Status: Acute Plan to address problem: - EGD/flex last month showed duodenal ulcers with gastritis, and brown stool/poor prep. - Continue PPI therapy, and avoid NSAIDs. - OK to continue steroids for now given COVID/sepsis. - OK to anticoagulate with caution given high risk of ischemic events; monitor stools closely for melena, but hematocrit much improved after PRBC. (3) Ascites due to alcoholic cirrhosis Current Visit: Yes Status: Acute (4) Hepatitis C antibody positive in blood Current Visit: Yes Status: Acute Subjective Date of service: 03/17/21 Principal diagnosis: Liver, anemia Interval history: The patient remains on the vent without significant clinical change. No blood in NG nor stools. Objective - Constitutional Vitals: Temp Pulse Resp BP Pulse Ox 98.6 F 97 H 21 106/83 99 03/17/21 07:50 03/17/21 09:40 03/17/21 08:00 03/17/21 09:40 03/17/21 09:40 General appearance: other (Intubated/sedated) - EENT Eyes: PERRL, EOM intact - Respiratory Respiratory effort: normal Respiratory: bilateral: CTA (Vent) - Cardiovascular Rhythm: regular Heart Sounds: Present: S1 & S2 - Extremities Extremities: no ischemia, No edema - Gastrointestinal General gastrointestinal: Present: soft, non-tender, non-distended - Labs CBC & Chem 7: 03/17/21 04:19 03/17/21 04:19 Labs: Laboratory Results - last 24 hr 03/16/21 03/16/21 03/16/21 08:00 12:10 13:19 WBC RBC Hgb Hct MCV MCH MCHC RDW Plt Count PT INR ABG pH POC ABG pCO2 POC ABG pO2 POC ABG HCO3 ABG O2 Saturation POC ABG Base Excess ABG Hemoglobin ABG Oxyhemoglobin ABG Methemoglobin ABG Sodium ABG Potassium ABG Chloride ABG Glucose Carboxyhemoglobin FiO2 % Sodium Potassium Chloride Carbon Dioxide Anion Gap BUN Creatinine Estimated GFR BUN/Creatinine Ratio Glucose POC Glucose 59 L 110 H Calcium Magnesium Total Bilirubin AST ALT Alkaline Phosphatase Total Protein Albumin Albumin/Globulin Ratio Arterial Blood Glucose Arterial Blood Ionized Calcium Blood Type B POSITIVE Antibody Screen Negative Crossmatch See Detail 03/16/21 03/16/21 03/16/21 18:44 22:15 22:15 WBC 16.3 H RBC 4.02 Hgb 9.7 L D Hct 31.9 L D MCV 79 L MCH 24 L MCHC 30 L RDW 26.0 H Plt Count 27 L PT 30.3 H INR 2.63 H ABG pH POC ABG pCO2 POC ABG pO2 POC ABG HCO3 ABG O2 Saturation POC ABG Base Excess ABG Hemoglobin ABG Oxyhemoglobin ABG Methemoglobin ABG Sodium ABG Potassium ABG Chloride ABG Glucose Carboxyhemoglobin FiO2 % Sodium Potassium Chloride Carbon Dioxide Anion Gap BUN Creatinine Estimated GFR BUN/Creatinine Ratio Glucose POC Glucose 75 Calcium Magnesium Total Bilirubin AST ALT Alkaline Phosphatase Total Protein Albumin Albumin/Globulin Ratio Arterial Blood Glucose Arterial Blood Ionized Calcium Blood Type Antibody Screen Crossmatch 03/16/21 03/17/21 03/17/21 22:15 00:21 00:46 WBC RBC Hgb Hct MCV MCH MCHC RDW Plt Count PT INR ABG pH POC ABG pCO2 POC ABG pO2 POC ABG HCO3 ABG O2 Saturation POC ABG Base Excess ABG Hemoglobin ABG Oxyhemoglobin ABG Methemoglobin ABG Sodium ABG Potassium ABG Chloride ABG Glucose Carboxyhemoglobin FiO2 % Sodium Potassium 3.3 L Chloride Carbon Dioxide Anion Gap BUN Creatinine Estimated GFR BUN/Creatinine Ratio Glucose POC Glucose 53 L 55 L Calcium Magnesium 2.50 H Total Bilirubin AST ALT Alkaline Phosphatase Total Protein Albumin Albumin/Globulin Ratio Arterial Blood Glucose Arterial Blood Ionized Calcium Blood Type Antibody Screen Crossmatch 03/17/21 03/17/21 03/17/21 01:03 02:34 04:19 WBC RBC Hgb Hct MCV MCH MCHC RDW Plt Count PT INR ABG pH 7.614 H POC ABG pCO2 23.4 L POC ABG pO2 70.5 L POC ABG HCO3 23.2 ABG O2 Saturation 95.2 POC ABG Base Excess 2.6 ABG Hemoglobin 9.9 L ABG Oxyhemoglobin 93.7 L ABG Methemoglobin 0.3 ABG Sodium 141.3 ABG Potassium 3.0 L ABG Chloride 99.0 ABG Glucose 86 Carboxyhemoglobin 1.3 FiO2 % 40.0 Sodium 147 H Potassium 3.0 L Chloride 99.8 Carbon Dioxide 25 Anion Gap 25 BUN 33 H Creatinine 1.6 H Estimated GFR 44 BUN/Creatinine Ratio 21 Glucose 88 POC Glucose 104 Calcium 8.0 L Magnesium Total Bilirubin 4.30 H AST 1427 H ALT 340 H Alkaline Phosphatase 128 Total Protein 5.4 L Albumin 2.3 L Albumin/Globulin Ratio 0.7 Arterial Blood Glucose 86 Arterial Blood Ionized Calcium 4.0 L Blood Type Antibody Screen Crossmatch 03/17/21 03/17/21 03/17/21 04:19 04:19 04:19 WBC 15.0 H RBC 3.86 Hgb 9.3 L Hct 30.3 L MCV 78 L MCH 24 L MCHC 31 L RDW 26.2 H Plt Count 20 L PT 29.8 H INR 2.58 H ABG pH POC ABG pCO2 POC ABG pO2 POC ABG HCO3 ABG O2 Saturation POC ABG Base Excess ABG Hemoglobin ABG Oxyhemoglobin ABG Methemoglobin ABG Sodium ABG Potassium ABG Chloride ABG Glucose Carboxyhemoglobin FiO2 % Sodium Potassium Chloride Carbon Dioxide Anion Gap BUN Creatinine Estimated GFR BUN/Creatinine Ratio Glucose POC Glucose Calcium Magnesium 2.40 H Total Bilirubin AST ALT Alkaline Phosphatase Total Protein Albumin Albumin/Globulin Ratio Arterial Blood Glucose Arterial Blood Ionized Calcium Blood Type Antibody Screen Crossmatch 03/17/21 05:16 WBC RBC Hgb Hct MCV MCH MCHC RDW Plt Count PT INR ABG pH POC ABG pCO2 POC ABG pO2 POC ABG HCO3 ABG O2 Saturation POC ABG Base Excess ABG Hemoglobin ABG Oxyhemoglobin ABG Methemoglobin ABG Sodium ABG Potassium ABG Chloride ABG Glucose Carboxyhemoglobin FiO2 % Sodium Potassium Chloride Carbon Dioxide Anion Gap BUN Creatinine Estimated GFR BUN/Creatinine Ratio Glucose POC Glucose 97 Calcium Magnesium Total Bilirubin AST ALT Alkaline Phosphatase Total Protein Albumin Albumin/Globulin Ratio Arterial Blood Glucose Arterial Blood Ionized Calcium Blood Type Antibody Screen Crossmatch
[2021-03-17] MEDS: fentaNYL 100 MCG/2 ML INJ IV PRN (11:43)
[2021-03-17] MEDS ORDERED: LIPASE 10,500/PROTEASE 25,000/AMYLASE 43,750 (UNITS) DR CAP FEEDTUBE PRN (12:00)
[2021-03-17] MEDS ORDERED: SODIUM BICARBONATE 325 MG TAB FEEDTUBE PRN (12:00)
[2021-03-17] MEDS ORDERED: SIMPLE SYRUP 15 ML FEEDTUBE PRN (12:00)
--- NOTE | 2021-03-17 12:07 | Progress Note ---
Assessment and Plan 65 y/o male with acute respiratory failure most likely secondary to COVID plus right sided effusion secondary to large volume ascities from liver cirrhosis. 03/17/21: Will drop tidal volume down to 400. repeat ABG in am. If patient seizes, please obtain stat ABG. Could be secondary to alkalemia. Mental state not improving post improvement of acidemia is a poor prognostic sign in my opinion. Neurology on board and head CT was negative. Neurology wants to try lactulose so ordered today. Will do for 24-36 hours to see if this helps with mental state but doubt it will. Very very guarded to poor prognosis. Plan to have family meeting next week (friday) 03/16/21: Acidemia is improved with HD. Likely will hold today. Stopped bicarb drip and patient is now off pressors. Given drop in hemoglobin need to correct coagulopathy. FFP, vitamin K. GI already following. Hopefully patient does not have esophargeal or gastric varices. No overt evidence of bleeding. q6hour H/H's. Monitor platelets but hold on transfusion for now. Neurology concerned about ammonia level. Have no problem with empiric lactulose but will not trend ammonia levels. Very very guarded prognosis. 03/15/21: Vascath placed in right groin. ORder theron in the event it is needed during HD. Increase bicarb drip to 200. Hold all sedatives. No acute evidence of bleeding currently. Continue to trend LFT's and COags. Very very guarded prognosis. If not able to tolerate HD to fix acidemia, prognosis becomes gravely poor. 03/14/21: Started patient on bicarb drip and gave a few amps of sodium bicarb. Added vasopressin therapy. Continue Steroids and Remdesivir. Off sedation. Guarded prognosis. 1. Wean Vent settings and sedation as tolerated 2. Remdesivir and Steroids, Pending CRP, actemra 3. Hold on proning now that intubated, not able to paralyze and adequately sedate in the ED 4. Negative fluid balance if possible 5. Needs paracentesis, this should take care of pleural effusion as well. 6. Guarded prognosis. CCT 31 minutes. Subjective Date of service: 03/17/21 Principal diagnosis: Liver, anemia Interval history: Very alkalotic on pH this am. Minimal vent support. Not on sedation. Was having some issues with BP yesterday but now resolved. GI saw this am, appreciate their recs. PLT count is 20k. AST and ALT continue to improve. However mental status has not despite correcting acidosis. Head CT yesterday was unremarkable. Objective Vital Signs - 12hr 03/17/21 03/17/21 03/17/21 00:15 00:30 00:45 Temperature Pulse Rate 94 H 100 H 101 H Pulse Rate [ From Monitor] Respiratory 30 H 20 30 H Rate Blood Pressure 115/74 102/74 109/80 O2 Sat by Pulse 100 100 100 Oximetry 03/17/21 03/17/21 03/17/21 01:00 01:15 01:30 Temperature Pulse Rate 95 H 102 H 96 H Pulse Rate [ From Monitor] Respiratory 26 H 26 H 25 H Rate Blood Pressure 110/68 113/82 103/70 O2 Sat by Pulse 100 100 100 Oximetry 03/17/21 03/17/21 03/17/21 01:45 02:00 02:15 Temperature Pulse Rate 96 H 102 H 91 H Pulse Rate [ From Monitor] Respiratory 24 22 11 L Rate Blood Pressure 110/70 126/81 113/80 O2 Sat by Pulse 100 100 100 Oximetry 03/17/21 03/17/21 03/17/21 02:30 02:45 03:00 Temperature Pulse Rate 93 H 92 H 87 Pulse Rate [ From Monitor] Respiratory 23 25 H 21 Rate Blood Pressure 113/80 110/60 105/64 O2 Sat by Pulse 100 100 100 Oximetry 03/17/21 03/17/21 03/17/21 03:15 03:23 03:26 Temperature Pulse Rate 99 H 94 H 98 H Pulse Rate [ From Monitor] Respiratory 23 Rate Blood Pressure 113/77 113/77 O2 Sat by Pulse 97 100 Oximetry 03/17/21 03/17/21 03/17/21 03:28 03:30 03:45 Temperature 98.1 F Pulse Rate 98 H 89 Pulse Rate [ From Monitor] Respiratory 25 H 23 Rate Blood Pressure 123/81 118/69 O2 Sat by Pulse 100 100 Oximetry 03/17/21 03/17/21 03/17/21 03:52 04:00 04:15 Temperature Pulse Rate 95 H 91 H Pulse Rate [ 100 H From Monitor] Respiratory 30 H 29 H 29 H Rate Blood Pressure 125/78 112/61 O2 Sat by Pulse 98 98 95 Oximetry 03/17/21 03/17/21 03/17/21 04:30 04:45 05:00 Temperature Pulse Rate 100 H 100 H 93 H Pulse Rate [ From Monitor] Respiratory 20 32 H 19 Rate Blood Pressure 126/75 133/80 116/78 O2 Sat by Pulse 97 99 99 Oximetry 03/17/21 03/17/21 03/17/21 05:15 05:30 05:40 Temperature Pulse Rate 105 H 103 H 88 Pulse Rate [ From Monitor] Respiratory 16 33 H 19 Rate Blood Pressure 105/81 124/85 124/85 O2 Sat by Pulse 99 99 100 Oximetry 03/17/21 03/17/21 03/17/21 06:00 06:15 06:30 Temperature Pulse Rate 105 H 110 H 104 H Pulse Rate [ From Monitor] Respiratory 29 H 23 25 H Rate Blood Pressure 138/87 132/78 115/83 O2 Sat by Pulse 100 98 98 Oximetry 03/17/21 03/17/21 03/17/21 06:45 07:00 07:15 Temperature Pulse Rate 108 H 111 H 99 H Pulse Rate [ From Monitor] Respiratory 19 18 19 Rate Blood Pressure 122/81 126/78 136/78 O2 Sat by Pulse 100 100 99 Oximetry 03/17/21 03/17/21 03/17/21 07:30 07:45 07:50 Temperature 98.6 F Pulse Rate 112 H 109 H Pulse Rate [ From Monitor] Respiratory 18 25 H Rate Blood Pressure 114/78 128/82 O2 Sat by Pulse 98 99 Oximetry 03/17/21 03/17/21 03/17/21 08:00 08:15 08:30 Temperature Pulse Rate 111 H 113 H 112 H Pulse Rate [ 97 H From Monitor] Respiratory 19 22 23 Rate Blood Pressure 106/83 114/82 121/85 O2 Sat by Pulse 98 99 99 Oximetry 03/17/21 03/17/21 03/17/21 08:45 09:00 09:15 Temperature Pulse Rate 109 H 106 H 107 H Pulse Rate [ From Monitor] Respiratory 19 15 18 Rate Blood Pressure 120/76 131/85 138/83 O2 Sat by Pulse 100 99 99 Oximetry 03/17/21 03/17/21 03/17/21 09:30 09:40 09:45 Temperature Pulse Rate 112 H 97 H 111 H Pulse Rate [ From Monitor] Respiratory 25 H 20 Rate Blood Pressure 111/85 106/83 120/82 O2 Sat by Pulse 97 99 100 Oximetry 03/17/21 03/17/21 03/17/21 10:00 10:15 10:30 Temperature Pulse Rate 106 H 106 H 99 H Pulse Rate [ From Monitor] Respiratory 23 14 26 H Rate Blood Pressure 118/83 123/80 116/70 O2 Sat by Pulse 100 100 99 Oximetry 03/17/21 03/17/21 03/17/21 10:45 11:00 11:15 Temperature Pulse Rate 96 H 93 H 110 H Pulse Rate [ From Monitor] Respiratory 17 20 18 Rate Blood Pressure 121/71 115/69 123/83 O2 Sat by Pulse 100 99 100 Oximetry 03/17/21 03/17/21 03/17/21 11:30 11:45 11:57 Temperature Pulse Rate 103 H 105 H 105 H Pulse Rate [ From Monitor] Respiratory 28 H 34 H Rate Blood Pressure 122/77 122/77 122/77 O2 Sat by Pulse 99 99 100 Oximetry Gastrointestinal: normoactive bowel sounds Integumentary: normal CBC and BMP: 03/17/21 04:19 03/17/21 04:19 ABG, PT/INR, D-dimer: ABG ABG pH 7.614 (7.320-7.450) H 03/17/21 02:34 POC ABG pCO2 23.4 mmHg (32.0-48.0) L 03/17/21 02:34 ABG pCO2 21.2 mm Hg 03/15/21 03:42 POC ABG pO2 70.5 mmHg (83-108) L 03/17/21 02:34 ABG pO2 90.7 mm Hg (80.0-90.0) H 03/15/21 03:42 POC ABG HCO3 23.2 03/17/21 02:34 ABG O2 Saturation 95.2 (0-100) 03/17/21 02:34 PT/INR, D-dimer PT 29.8 Sec. (12.2-14.9) H 03/17/21 04:19 INR 2.58 (0.87-1.13) H 03/17/21 04:19 D-Dimer > 11795 ng/mlDDU (0-234) H 03/14/21 05:34 Abnormal lab findings: Abnormal Labs 03/12/21 03/12/21 03/12/21 18:17 18:54 18:54 WBC 15.4 H RBC Hgb 9.0 L Hct 33.2 L MCV 77 L MCH 21 L MCHC 27 L RDW 28.1 H Plt Count Seg Neuts % (Manual) 86.0 H Lymphocytes % (Manual) 4.0 L Monocytes % (Manual) 8.0 H Nucleated RBC % Seg Neutrophils # Man 13.2 H Lymphocytes # (Manual) 0.6 L Monocytes # (Manual) 1.2 H PT INR APTT D-Dimer ABG pH POC ABG pCO2 POC ABG pO2 ABG pO2 ABG HCO3 ABG O2 Saturation ABG Base Excess ABG Hemoglobin ABG Oxyhemoglobin ABG Sodium ABG Potassium ABG Glucose Oxyhemoglobin Sodium 136 L Potassium 5.4 H Carbon Dioxide 16 L BUN 32 H Creatinine Glucose 104 H POC Glucose 58 L Calcium Magnesium Ferritin Total Bilirubin 1.40 H AST 71 H ALT Alkaline Phosphatase 164 H Ammonia Lactate Dehydrogenase C-Reactive Protein NT-Pro-B Natriuret Pep Total Protein Albumin 2.2 L Arterial Blood Glucose Arterial Blood Ionized Calcium Coronavirus (PCR) Hepatitis C Antibody Crossmatch 03/12/21 03/12/21 03/12/21 18:54 18:54 18:54 WBC RBC Hgb Hct MCV MCH MCHC RDW Plt Count Seg Neuts % (Manual) Lymphocytes % (Manual) Monocytes % (Manual) Nucleated RBC % Seg Neutrophils # Man Lymphocytes # (Manual) Monocytes # (Manual) PT 17.6 H INR 1.31 H APTT 38.7 H D-Dimer > 35189 H ABG pH POC ABG pCO2 POC ABG pO2 ABG pO2 ABG HCO3 ABG O2 Saturation ABG Base Excess ABG Hemoglobin ABG Oxyhemoglobin ABG Sodium ABG Potassium ABG Glucose Oxyhemoglobin Sodium Potassium Carbon Dioxide BUN Creatinine Glucose POC Glucose Calcium Magnesium Ferritin Total Bilirubin AST ALT Alkaline Phosphatase Ammonia 72.0 H Lactate Dehydrogenase C-Reactive Protein NT-Pro-B Natriuret Pep 1838 H Total Protein Albumin Arterial Blood Glucose Arterial Blood Ionized Calcium Coronavirus (PCR) Hepatitis C Antibody Crossmatch 03/12/21 03/12/21 03/12/21 18:54 19:04 19:21 WBC RBC Hgb Hct MCV MCH MCHC RDW Plt Count Seg Neuts % (Manual) Lymphocytes % (Manual) Monocytes % (Manual) Nucleated RBC % Seg Neutrophils # Man Lymphocytes # (Manual) Monocytes # (Manual) PT INR APTT D-Dimer ABG pH POC ABG pCO2 POC ABG pO2 ABG pO2 ABG HCO3 ABG O2 Saturation ABG Base Excess ABG Hemoglobin ABG Oxyhemoglobin ABG Sodium ABG Potassium ABG Glucose Oxyhemoglobin Sodium Potassium Carbon Dioxide BUN Creatinine Glucose POC Glucose 30 L Calcium Magnesium Ferritin 414.7 H Total Bilirubin AST ALT Alkaline Phosphatase Ammonia Lactate Dehydrogenase 287 H C-Reactive Protein 10.80 H NT-Pro-B Natriuret Pep Total Protein Albumin Arterial Blood Glucose Arterial Blood Ionized Calcium Coronavirus (PCR) Hepatitis C Antibody Crossmatch 03/12/21 03/12/21 03/13/21 19:50 20:14 00:05 WBC RBC Hgb Hct MCV MCH MCHC RDW Plt Count Seg Neuts % (Manual) Lymphocytes % (Manual) Monocytes % (Manual) Nucleated RBC % Seg Neutrophils # Tarun Lymphocytes # (Manual) Monocytes # (Manual) PT INR APTT D-Dimer ABG pH POC ABG pCO2 POC ABG pO2 314.9 H ABG pO2 ABG HCO3 ABG O2 Saturation ABG Base Excess ABG Hemoglobin ABG Oxyhemoglobin 98.9 H ABG Sodium ABG Potassium ABG Glucose 229 H Oxyhemoglobin Sodium Potassium Carbon Dioxide BUN Creatinine Glucose POC Glucose 24 L 371 H Calcium Magnesium Ferritin Total Bilirubin AST ALT Alkaline Phosphatase Ammonia Lactate Dehydrogenase C-Reactive Protein NT-Pro-B Natriuret Pep Total Protein Albumin Arterial Blood Glucose 229 H Arterial Blood Ionized Calcium Coronavirus (PCR) Hepatitis C Antibody Crossmatch 03/13/21 03/13/21 03/13/21 02:29 14:32 14:32 WBC 17.3 H RBC Hgb 8.8 L Hct 31.0 L MCV 75 L MCH 22 L MCHC 29 L RDW 27.5 H Plt Count Seg Neuts % (Manual) 91.0 H Lymphocytes % (Manual) 0 L Monocytes % (Manual) Nucleated RBC % 2.0 H Seg Neutrophils # Man 15.7 H Lymphocytes # (Manual) 0.0 L Monocytes # (Manual) 0.9 H PT INR APTT D-Dimer ABG pH POC ABG pCO2 POC ABG pO2 ABG pO2 ABG HCO3 ABG O2 Saturation ABG Base Excess ABG Hemoglobin ABG Oxyhemoglobin ABG Sodium ABG Potassium ABG Glucose Oxyhemoglobin Sodium Potassium Carbon Dioxide 16 L BUN 35 H Creatinine 1.5 H Glucose 58 L POC Glucose 128 H Calcium 7.8 L Magnesium Ferritin Total Bilirubin 1.40 H AST 82 H ALT Alkaline Phosphatase 163 H Ammonia Lactate Dehydrogenase C-Reactive Protein NT-Pro-B Natriuret Pep Total Protein 6.2 L Albumin 1.7 L Arterial Blood Glucose Arterial Blood Ionized Calcium Coronavirus (PCR) Hepatitis C Antibody Crossmatch 03/13/21 03/14/21 03/14/21 Unknown 05:00 05:34 WBC 16.9 H RBC Hgb 7.9 L Hct 29.4 L MCV 80 L MCH 22 L MCHC 27 L RDW 28.6 H Plt Count Seg Neuts % (Manual) 72.0 H Lymphocytes % (Manual) 5.0 L Monocytes % (Manual) Nucleated RBC % 7.0 H Seg Neutrophils # Man 12.2 H Lymphocytes # (Manual) 0.8 L Monocytes # (Manual) PT INR APTT D-Dimer ABG pH 7.167 L POC ABG pCO2 24.6 L POC ABG pO2 ABG pO2 ABG HCO3 ABG O2 Saturation ABG Base Excess ABG Hemoglobin 9.3 L ABG Oxyhemoglobin ABG Sodium 135.2 L ABG Potassium 5.5 H ABG Glucose Oxyhemoglobin Sodium Potassium Carbon Dioxide BUN Creatinine Glucose POC Glucose Calcium Magnesium Ferritin Total Bilirubin AST ALT Alkaline Phosphatase Ammonia Lactate Dehydrogenase C-Reactive Protein NT-Pro-B Natriuret Pep Total Protein Albumin Arterial Blood Glucose Arterial Blood Ionized Calcium 4.3 L Coronavirus (PCR) Positive A Hepatitis C Antibody Crossmatch 03/14/21 03/14/21 03/14/21 05:34 05:34 05:34 WBC RBC Hgb Hct MCV MCH MCHC RDW Plt Count Seg Neuts % (Manual) Lymphocytes % (Manual) Monocytes % (Manual) Nucleated RBC % Seg Neutrophils # Man Lymphocytes # (Manual) Monocytes # (Manual) PT INR APTT D-Dimer > 16087 H ABG pH POC ABG pCO2 POC ABG pO2 ABG pO2 ABG HCO3 ABG O2 Saturation ABG Base Excess ABG Hemoglobin ABG Oxyhemoglobin ABG Sodium ABG Potassium ABG Glucose Oxyhemoglobin Sodium Potassium 5.7 H D Carbon Dioxide BUN 37 H Creatinine Glucose POC Glucose Calcium 7.9 L Magnesium Ferritin 6545.0 H Total Bilirubin 1.80 H AST 4019 H ALT 501 H Alkaline Phosphatase Ammonia Lactate Dehydrogenase 2367 H C-Reactive Protein 8.40 H NT-Pro-B Natriuret Pep Total Protein 5.8 L Albumin 1.8 L Arterial Blood Glucose Arterial Blood Ionized Calcium Coronavirus (PCR) Hepatitis C Antibody Crossmatch 03/14/21 03/14/21 03/14/21 05:34 07:16 07:18 WBC RBC Hgb Hct MCV MCH MCHC RDW Plt Count Seg Neuts % (Manual) Lymphocytes % (Manual) Monocytes % (Manual) Nucleated RBC % Seg Neutrophils # Man Lymphocytes # (Manual) Monocytes # (Manual) PT INR APTT D-Dimer ABG pH POC ABG pCO2 POC ABG pO2 ABG pO2 ABG HCO3 ABG O2 Saturation ABG Base Excess ABG Hemoglobin ABG Oxyhemoglobin ABG Sodium ABG Potassium ABG Glucose Oxyhemoglobin Sodium Potassium 5.4 H Carbon Dioxide 12 L BUN 38 H Creatinine 2.5 H D Glucose 29 L* POC Glucose 17 L Calcium 7.6 L Magnesium Ferritin Total Bilirubin AST ALT Alkaline Phosphatase Ammonia Lactate Dehydrogenase 2218 H C-Reactive Protein 8.30 H NT-Pro-B Natriuret Pep Total Protein Albumin Arterial Blood Glucose Arterial Blood Ionized Calcium Coronavirus (PCR) Hepatitis C Antibody Reactive A Crossmatch 03/14/21 03/14/21 03/14/21 08:08 08:59 10:06 WBC RBC Hgb Hct MCV MCH MCHC RDW Plt Count Seg Neuts % (Manual) Lymphocytes % (Manual) Monocytes % (Manual) Nucleated RBC % Seg Neutrophils # Man Lymphocytes # (Manual) Monocytes # (Manual) PT 40.7 H INR 3.85 H APTT D-Dimer ABG pH POC ABG pCO2 POC ABG pO2 ABG pO2 ABG HCO3 ABG O2 Saturation ABG Base Excess ABG Hemoglobin ABG Oxyhemoglobin ABG Sodium ABG Potassium ABG Glucose Oxyhemoglobin Sodium Potassium Carbon Dioxide BUN Creatinine Glucose POC Glucose 11 L 144 H Calcium Magnesium Ferritin Total Bilirubin AST ALT Alkaline Phosphatase Ammonia Lactate Dehydrogenase C-Reactive Protein NT-Pro-B Natriuret Pep Total Protein Albumin Arterial Blood Glucose Arterial Blood Ionized Calcium Coronavirus (PCR) Hepatitis C Antibody Crossmatch 03/14/21 03/15/21 03/15/21 18:15 03:42 04:17 WBC RBC Hgb Hct MCV MCH MCHC RDW Plt Count Seg Neuts % (Manual) Lymphocytes % (Manual) Monocytes % (Manual) Nucleated RBC % Seg Neutrophils # Man Lymphocytes # (Manual) Monocytes # (Manual) PT INR APTT D-Dimer ABG pH 7.088 L* POC ABG pCO2 POC ABG pO2 ABG pO2 90.7 H ABG HCO3 6.2 L ABG O2 Saturation 92.8 L ABG Base Excess -21.8 L ABG Hemoglobin 8.9 L ABG Oxyhemoglobin ABG Sodium ABG Potassium ABG Glucose Oxyhemoglobin 90.8 L Sodium Potassium 6.5 H* D Carbon Dioxide 5 L* D BUN 37 H Creatinine 2.1 H Glucose POC Glucose 124 H Calcium 7.4 L Magnesium Ferritin Total Bilirubin 2.40 H AST 3911 H ALT 663 H Alkaline Phosphatase 139 H Ammonia Lactate Dehydrogenase C-Reactive Protein NT-Pro-B Natriuret Pep Total Protein 5.8 L Albumin 1.8 L Arterial Blood Glucose Arterial Blood Ionized Calcium Coronavirus (PCR) Hepatitis C Antibody Crossmatch 03/15/21 03/15/21 03/15/21 11:17 11:41 13:13 WBC RBC Hgb Hct MCV MCH MCHC RDW Plt Count Seg Neuts % (Manual) Lymphocytes % (Manual) Monocytes % (Manual) Nucleated RBC % Seg Neutrophils # Man Lymphocytes # (Manual) Monocytes # (Manual) PT INR APTT D-Dimer ABG pH POC ABG pCO2 POC ABG pO2 ABG pO2 ABG HCO3 ABG O2 Saturation ABG Base Excess ABG Hemoglobin ABG Oxyhemoglobin ABG Sodium ABG Potassium ABG Glucose Oxyhemoglobin Sodium 153 H D Potassium Carbon Dioxide 14 L D BUN 31 H Creatinine 1.8 H Glucose 262 H POC Glucose 17 L 35 L Calcium 5.8 L* D Magnesium Ferritin Total Bilirubin AST ALT Alkaline Phosphatase Ammonia Lactate Dehydrogenase C-Reactive Protein NT-Pro-B Natriuret Pep Total Protein Albumin Arterial Blood Glucose Arterial Blood Ionized Calcium Coronavirus (PCR) Hepatitis C Antibody Crossmatch 03/15/21 03/15/21 03/16/21 13:53 23:52 06:30 WBC RBC Hgb Hct MCV MCH MCHC RDW Plt Count Seg Neuts % (Manual) Lymphocytes % (Manual) Monocytes % (Manual) Nucleated RBC % Seg Neutrophils # Man Lymphocytes # (Manual) Monocytes # (Manual) PT INR APTT D-Dimer ABG pH POC ABG pCO2 POC ABG pO2 ABG pO2 ABG HCO3 ABG O2 Saturation ABG Base Excess ABG Hemoglobin ABG Oxyhemoglobin ABG Sodium ABG Potassium ABG Glucose Oxyhemoglobin Sodium 146 H Potassium 3.1 L D Carbon Dioxide BUN 27 H Creatinine 1.8 H Glucose 140 H POC Glucose 40 L 142 H Calcium 7.3 L D Magnesium Ferritin Total Bilirubin 3.10 H AST 2233 H ALT 409 H Alkaline Phosphatase 156 H Ammonia Lactate Dehydrogenase C-Reactive Protein NT-Pro-B Natriuret Pep Total Protein 5.2 L Albumin 2.5 L Arterial Blood Glucose Arterial Blood Ionized Calcium Coronavirus (PCR) Hepatitis C Antibody Crossmatch 03/16/21 03/16/21 03/16/21 06:30 06:30 06:30 WBC 15.5 H RBC 2.54 L Hgb 5.5 L* Hct 19.1 L* D MCV 75 L MCH 21 L MCHC 29 L RDW 26.7 H Plt Count 36 L Seg Neuts % (Manual) Lymphocytes % (Manual) Monocytes % (Manual) Nucleated RBC % Seg Neutrophils # Man Lymphocytes # (Manual) Monocytes # (Manual) PT 58.3 H INR 6.13 H* APTT D-Dimer ABG pH POC ABG pCO2 POC ABG pO2 ABG pO2 ABG HCO3 ABG O2 Saturation ABG Base Excess ABG Hemoglobin ABG Oxyhemoglobin ABG Sodium ABG Potassium ABG Glucose Oxyhemoglobin Sodium Potassium Carbon Dioxide BUN Creatinine Glucose POC Glucose Calcium Magnesium 1.60 L Ferritin Total Bilirubin AST ALT Alkaline Phosphatase Ammonia Lactate Dehydrogenase C-Reactive Protein NT-Pro-B Natriuret Pep Total Protein Albumin Arterial Blood Glucose Arterial Blood Ionized Calcium Coronavirus (PCR) Hepatitis C Antibody Crossmatch 03/16/21 03/16/21 03/16/21 08:00 12:10 13:19 WBC RBC Hgb Hct MCV MCH MCHC RDW Plt Count Seg Neuts % (Manual) Lymphocytes % (Manual) Monocytes % (Manual) Nucleated RBC % Seg Neutrophils # Man Lymphocytes # (Manual) Monocytes # (Manual) PT INR APTT D-Dimer ABG pH POC ABG pCO2 POC ABG pO2 ABG pO2 ABG HCO3 ABG O2 Saturation ABG Base Excess ABG Hemoglobin ABG Oxyhemoglobin ABG Sodium ABG Potassium ABG Glucose Oxyhemoglobin Sodium Potassium Carbon Dioxide BUN Creatinine Glucose POC Glucose 59 L 110 H Calcium Magnesium Ferritin Total Bilirubin AST ALT Alkaline Phosphatase Ammonia Lactate Dehydrogenase C-Reactive Protein NT-Pro-B Natriuret Pep Total Protein Albumin Arterial Blood Glucose Arterial Blood Ionized Calcium Coronavirus (PCR) Hepatitis C Antibody Crossmatch See Detail 03/16/21 03/16/21 03/16/21 22:15 22:15 22:15 WBC 16.3 H RBC Hgb 9.7 L D Hct 31.9 L D MCV 79 L MCH 24 L MCHC 30 L RDW 26.0 H Plt Count 27 L Seg Neuts % (Manual) Lymphocytes % (Manual) Monocytes % (Manual) Nucleated RBC % Seg Neutrophils # Man Lymphocytes # (Manual) Monocytes # (Manual) PT 30.3 H INR 2.63 H APTT D-Dimer ABG pH POC ABG pCO2 POC ABG pO2 ABG pO2 ABG HCO3 ABG O2 Saturation ABG Base Excess ABG Hemoglobin ABG Oxyhemoglobin ABG Sodium ABG Potassium ABG Glucose Oxyhemoglobin Sodium Potassium 3.3 L Carbon Dioxide BUN Creatinine Glucose POC Glucose Calcium Magnesium 2.50 H Ferritin Total Bilirubin AST ALT Alkaline Phosphatase Ammonia Lactate Dehydrogenase C-Reactive Protein NT-Pro-B Natriuret Pep Total Protein Albumin Arterial Blood Glucose Arterial Blood Ionized Calcium Coronavirus (PCR) Hepatitis C Antibody Crossmatch 03/17/21 03/17/21 03/17/21 00:21 00:46 02:34 WBC RBC Hgb Hct MCV MCH MCHC RDW Plt Count Seg Neuts % (Manual) Lymphocytes % (Manual) Monocytes % (Manual) Nucleated RBC % Seg Neutrophils # Man Lymphocytes # (Manual) Monocytes # (Manual) PT INR APTT D-Dimer ABG pH 7.614 H POC ABG pCO2 23.4 L POC ABG pO2 70.5 L ABG pO2 ABG HCO3 ABG O2 Saturation ABG Base Excess ABG Hemoglobin 9.9 L ABG Oxyhemoglobin 93.7 L ABG Sodium ABG Potassium 3.0 L ABG Glucose Oxyhemoglobin Sodium Potassium Carbon Dioxide BUN Creatinine Glucose POC Glucose 53 L 55 L Calcium Magnesium Ferritin Total Bilirubin AST ALT Alkaline Phosphatase Ammonia Lactate Dehydrogenase C-Reactive Protein NT-Pro-B Natriuret Pep Total Protein Albumin Arterial Blood Glucose Arterial Blood Ionized Calcium 4.0 L Coronavirus (PCR) Hepatitis C Antibody Crossmatch 03/17/21 03/17/21 03/17/21 04:19 04:19 04:19 WBC 15.0 H RBC Hgb 9.3 L Hct 30.3 L MCV 78 L MCH 24 L MCHC 31 L RDW 26.2 H Plt Count 20 L Seg Neuts % (Manual) Lymphocytes % (Manual) Monocytes % (Manual) Nucleated RBC % Seg Neutrophils # Man Lymphocytes # (Manual) Monocytes # (Manual) PT 29.8 H INR 2.58 H APTT D-Dimer ABG pH POC ABG pCO2 POC ABG pO2 ABG pO2 ABG HCO3 ABG O2 Saturation ABG Base Excess ABG Hemoglobin ABG Oxyhemoglobin ABG Sodium ABG Potassium ABG Glucose Oxyhemoglobin Sodium 147 H Potassium 3.0 L Carbon Dioxide BUN 33 H Creatinine 1.6 H Glucose POC Glucose Calcium 8.0 L Magnesium Ferritin Total Bilirubin 4.30 H AST 1427 H ALT 340 H Alkaline Phosphatase Ammonia Lactate Dehydrogenase C-Reactive Protein NT-Pro-B Natriuret Pep Total Protein 5.4 L Albumin 2.3 L Arterial Blood Glucose Arterial Blood Ionized Calcium Coronavirus (PCR) Hepatitis C Antibody Crossmatch 03/17/21 04:19 WBC RBC Hgb Hct MCV MCH MCHC RDW Plt Count Seg Neuts % (Manual) Lymphocytes % (Manual) Monocytes % (Manual) Nucleated RBC % Seg Neutrophils # Man Lymphocytes # (Manual) Monocytes # (Manual) PT INR APTT D-Dimer ABG pH POC ABG pCO2 POC ABG pO2 ABG pO2 ABG HCO3 ABG O2 Saturation ABG Base Excess ABG Hemoglobin ABG Oxyhemoglobin ABG Sodium ABG Potassium ABG Glucose Oxyhemoglobin Sodium Potassium Carbon Dioxide BUN Creatinine Glucose POC Glucose Calcium Magnesium 2.40 H Ferritin Total Bilirubin AST ALT Alkaline Phosphatase Ammonia Lactate Dehydrogenase C-Reactive Protein NT-Pro-B Natriuret Pep Total Protein Albumin Arterial Blood Glucose Arterial Blood Ionized Calcium Coronavirus (PCR) Hepatitis C Antibody Crossmatch
[2021-03-17] MEDS: LACTULOSE 20 GM/30 ML ORAL LIQD PO SCH ×2 (12:54→18:42)
[2021-03-17] MEDS: MULTIVITAMIN / MINERAL ORAL LIQUID 15 ML PO SCH (12:54)
--- NOTE | 2021-03-17 12:56 | Progress Note ---
Assessment and Plan Cultures: SARS CoV2 PCR: Positive as outpatient 03/12/2021 blood culture: no growth 03/12/2021 tracheal aspirate culture: usual resp isaak A/P: 65-year-old male with hepatic cirrhosis, chronic hepatitis C, anemia, ascites, recent hospitalization due to worsening ascites, underwent paracentesis with removal of 13 L of fluid, now with: #Septic shock: from COVID, also ?SBP. Initial labs showed significant leukocytosis of 15.4, D-dimer greater than 10K, procalcitonin 8.67, CRP 10.8, LDH 287, ferritin 414, ammonia 72. Ferritin next day worsened to 6545, AST increased to 4019, ALT 501. Required multiple pressors. Remdesivir held. #Bilateral pneumonia: secondary to COVID-19 #Right pleural effusion, ascites #Acute hypoxic respiratory failure: on the vent #Acute renal failure, acidosis: nephrology on board. #Hepatic cirrhosis with ascites #Chronic hepatitis C: genotype 1a. Prior treatment status unknown. #Acute hepatic failure Recs: -continue IV/PO Dexamethasone x 10 days -Not a candidate for Actemra -prophylactic anticoagulation based on d-dimer per hospital protocol -continue empiric abx: ceftriaxone -vancomycin discontinued -extremely poor prognosis Jhony Nickerson MD, FACP, [facility] ([facility]) O: [phone] F: [phone] Subjective Date of service: 03/17/21 Principal diagnosis: Liver, anemia Interval history: No fever. Remains on the vent. Thrombocytopenic. Off pressors. Objective - Exam Narrative Exam: Physical Exam (reviewed in chart to minimize risk of transmission) Constitutional: deferred Head, Ears, Nose: deferred Eyes: deferred Neck: deferred Oral: deferred Cardiovascular: deferred Respiratory: deferred GI: deferred Musculoskeletal: deferred Skin: deferred Hem/Lymphatic: deferred Psych: deferred Neurological: deferred - Constitutional Vitals: Vital Signs Temp Pulse Resp BP Pulse Ox 99.2 F 102 H 30 H 122/77 99 03/17/21 12:00 03/17/21 12:00 03/17/21 12:00 03/17/21 11:57 03/17/21 12:00 Temperature -Last 24 Hours Temperature 99.2 F Temperature 98.6 F Temperature 98.1 F Temperature 99.1 F Temperature 98 F Temperature 98 F Temperature 97.4 F - Labs CBC & Chem 7: 03/17/21 04:19 03/17/21 04:19 Labs: Abnormal lab results 03/16/21 03/16/21 03/16/21 Range/Units 08:00 13:19 22:15 WBC 16.3 H (4.5-11.0) K/mm3 Hgb 9.7 L D (11.8-15.2) gm/dl Hct 31.9 L D (35.5-45.6) % MCV 79 L (84-94) fl MCH 24 L (28-32) pg MCHC 30 L (32-34) % RDW 26.0 H (13.2-15.2) % Plt Count 27 L (140-440) K/mm3 PT (12.2-14.9) Sec. INR (0.87-1.13) ABG pH (7.320-7.450) POC ABG pCO2 (32.0-48.0) mmHg POC ABG pO2 (83-108) mmHg ABG Hemoglobin (12.0-17.5) ABG Oxyhemoglobin (94-98) ABG Potassium (3.40-4.50) mmol/L Sodium (137-145) mmol/L Potassium (3.6-5.0) mmol/L BUN (9-20) mg/dL Creatinine (0.8-1.3) mg/dL POC Glucose 110 H (70-105) mg/dL Calcium (8.4-10.2) mg/dL Magnesium (1.7-2.3) mg/dL Total Bilirubin (0.1-1.2) mg/dL AST (5-40) units/L ALT (7-56) units/L Total Protein (6.3-8.2) g/dL Albumin (3.9-5) g/dL Arterial Blood Ionized Calcium (4.6-5.3) mg/dL Crossmatch See Detail 03/16/21 03/16/21 03/17/21 Range/Units 22:15 22:15 00:21 WBC (4.5-11.0) K/mm3 Hgb (11.8-15.2) gm/dl Hct (35.5-45.6) % MCV (84-94) fl MCH (28-32) pg MCHC (32-34) % RDW (13.2-15.2) % Plt Count (140-440) K/mm3 PT 30.3 H (12.2-14.9) Sec. INR 2.63 H (0.87-1.13) ABG pH (7.320-7.450) POC ABG pCO2 (32.0-48.0) mmHg POC ABG pO2 (83-108) mmHg ABG Hemoglobin (12.0-17.5) ABG Oxyhemoglobin (94-98) ABG Potassium (3.40-4.50) mmol/L Sodium (137-145) mmol/L Potassium 3.3 L (3.6-5.0) mmol/L BUN (9-20) mg/dL Creatinine (0.8-1.3) mg/dL POC Glucose 53 L (70-105) mg/dL Calcium (8.4-10.2) mg/dL Magnesium 2.50 H (1.7-2.3) mg/dL Total Bilirubin (0.1-1.2) mg/dL AST (5-40) units/L ALT (7-56) units/L Total Protein (6.3-8.2) g/dL Albumin (3.9-5) g/dL Arterial Blood Ionized Calcium (4.6-5.3) mg/dL Crossmatch 03/17/21 03/17/21 03/17/21 Range/Units 00:46 02:34 04:19 WBC (4.5-11.0) K/mm3 Hgb (11.8-15.2) gm/dl Hct (35.5-45.6) % MCV (84-94) fl MCH (28-32) pg MCHC (32-34) % RDW (13.2-15.2) % Plt Count (140-440) K/mm3 PT (12.2-14.9) Sec. INR (0.87-1.13) ABG pH 7.614 H (7.320-7.450) POC ABG pCO2 23.4 L (32.0-48.0) mmHg POC ABG pO2 70.5 L (83-108) mmHg ABG Hemoglobin 9.9 L (12.0-17.5) ABG Oxyhemoglobin 93.7 L (94-98) ABG Potassium 3.0 L (3.40-4.50) mmol/L Sodium 147 H (137-145) mmol/L Potassium 3.0 L (3.6-5.0) mmol/L BUN 33 H (9-20) mg/dL Creatinine 1.6 H (0.8-1.3) mg/dL POC Glucose 55 L (70-105) mg/dL Calcium 8.0 L (8.4-10.2) mg/dL Magnesium (1.7-2.3) mg/dL Total Bilirubin 4.30 H (0.1-1.2) mg/dL AST 1427 H (5-40) units/L ALT 340 H (7-56) units/L Total Protein 5.4 L (6.3-8.2) g/dL Albumin 2.3 L (3.9-5) g/dL Arterial Blood Ionized Calcium 4.0 L (4.6-5.3) mg/dL Crossmatch 03/17/21 03/17/21 03/17/21 Range/Units 04:19 04:19 04:19 WBC 15.0 H (4.5-11.0) K/mm3 Hgb 9.3 L (11.8-15.2) gm/dl Hct 30.3 L (35.5-45.6) % MCV 78 L (84-94) fl MCH 24 L (28-32) pg MCHC 31 L (32-34) % RDW 26.2 H (13.2-15.2) % Plt Count 20 L (140-440) K/mm3 PT 29.8 H (12.2-14.9) Sec. INR 2.58 H (0.87-1.13) ABG pH (7.320-7.450) POC ABG pCO2 (32.0-48.0) mmHg POC ABG pO2 (83-108) mmHg ABG Hemoglobin (12.0-17.5) ABG Oxyhemoglobin (94-98) ABG Potassium (3.40-4.50) mmol/L Sodium (137-145) mmol/L Potassium (3.6-5.0) mmol/L BUN (9-20) mg/dL Creatinine (0.8-1.3) mg/dL POC Glucose (70-105) mg/dL Calcium (8.4-10.2) mg/dL Magnesium 2.40 H (1.7-2.3) mg/dL Total Bilirubin (0.1-1.2) mg/dL AST (5-40) units/L ALT (7-56) units/L Total Protein (6.3-8.2) g/dL Albumin (3.9-5) g/dL Arterial Blood Ionized Calcium (4.6-5.3) mg/dL Crossmatch
[2021-03-17 14:31] LABS: Hematocrit 31.6 % (35.5-45.6); Hemoglobin 9.7 gm/dl (11.8-15.2)
[2021-03-17] MEDS: fentaNYL DRIP Premix 2,000 MCG/100 ML BAG IV SCH (15:10)
--- NOTE | 2021-03-17 17:44 | Progress Note ---
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 C/EtOH abuse, anemia, recent rectal bleeding, recurrent ascites admitted with COVID-19 pneumonia, acute decompensated liver failure, shock liver, transaminitis, sepsis Assessment and Plan Neuro: Sedated, Acute Hepatic/ Metabolic Encephalopathy -Sedation with fent -RASS goal 0 to -1 -Avoid delirium -Maintain sleep-wake cycle -No reponse to painful stimui, Pupils not reactive to light -Neuro consulted, appreciate recommendations -Thiamine CV: Sinus tachcardia, hypotension - Vasopressor support with levophed, vasopressin -Tejinder-Synephrine ordered if needed -map goal > 60 -off vasopressor -Blood pressure monitoring protocol -Consider cardiology consultation if needed Pulm: Acute respiratory failure with hypoxia,h/o tobacco abuse -Intubated 03/12 in the ED with 7.50 ETT at 24 at the lips -CCM consulted, appreciate recommendations -A.m. settings: Assist control tidal volume 500, rate 18, PEEP 6, FiO2 40% -See RT notes for titration -A.m. 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, recurrent ascites, rectal bleeding -GI consulted, appreciate recommendations -MELD NA: 22 -Serum ammonia 72 on admission -lactulose -Spironalactone d/c d/t hypotension -Abdominal ultrasound shows moderate to large volume ascites throughout all 4 quadrants of the abdomen -Avoid hepatotoxins -Trend LFTs -Per GI if signs of bleeding noted; vitamin K -Conservative management -Denied transfer to [place] for liver failure : Acute kidney injury, hypokalemia, refractory acidosis (resolved) -Nephrology consulted, patient recommendations -Secondary to acute tubular necrosis per nephrology -s/p NaHCO3 gtt -s/p Kayexalate and calcium gluconate for hyperkalemia x1 on 03/15 -Significant output -HD initiated on 03/15 per nephrology -Albumin as needed -Trend BMP -Repeated potassium -Avoid nephrotoxic medications ID: Sepsis, COVID-19 pneumonia, r/o SBP -Infectious disease consulted, appreciate recommendations -COVID-19 PCR positive -Droplet/isolation precautions -Decadron 6 mg IV (03/13-03/23) -Antibiotic therapy with Rocephin and vancomycin -Per ID not a candidate for Actemra -Holding remdesivir in setting of transaminitis -Trend COVID-19 telemetry markers -Hold prophylactic anticoagulation due to rectal bleed, supratherapeutic INR. -f/u culture data -Monitor fever and wbc curve Heme: Supratherapeutic INR, acute anemia, elevated D-dimer, h/o anemia due to rectal bleed, microcytic anemia -CTA chest negative for pulmonary embolism -Trend INR -s/p vit K and FFP -Monitor for bleeding -Hold chemical anticoagulation -SCD to bilateral lower extremities while in bed -Trend CBC -Transfuse hemoglobin less than 7 -s/p 2 units PRBC Endo: Hypoglycemia -s/p Dextrose drip with bicarb -Accu-Cheks every 6 -Hypoglycemic protocol The high probability of a clinically significant, sudden or life threatening deterioration of the [multi] system(s) required my full and direct attention, intervention and personal management. The aggregate critical care time was [60] minutes. This time is in addition to time spent performing reported procedures but includes the following: [x] Data Review and interpretation [x] Patient assessment and monitoring of vital signs [x] Documentation [x] Medication orders and management Disposition Plan: icu Total Time Spent with Patient (Minutes): 60 History Interval history: This is a 65-year-old male with ESLD secondary to cirrhosis from Hep C and EtOH abuse, recurrent ascites, rectal bleeding and anemia who presented to the emergency department 03/12 with shortness of breath, abdominal distention and COVID-19 infection. Patient was admitted to [facility] with the paracentesis and removal of 13 L of fluid and colonoscopy with GI due to int ermittent rectal bleeding. Patient's daughter stated that he tested positive for COVID-19 the week prior to admission. In triage patient was found to have SPO2 of 70% on room air, tachypnea and tachycardia. Patient was placed on a BiPAP in the emergency department and hyperglycemia was treated with dextrose. Patient did not tolerate BiPAP as he kept removing it and was desaturating. At this time patient was intubated by the ED physician. CXR showed bilateral pneumonia and right-sided large pleural effusion, abdominal x-ray showed large volume ascites. Lab work showed leukocytosis, anemia, slightly elevated coag studies, mild renal insufficiency and elevated proBNP with elevated COVID-19 inflammatory markers. Patient was given antibiotics and Decadron and admitted to the hospitalist service with consults to pulmonology, GI and infectious disease. Hospital Course: 03/13: Awaiting PCCM, GI, ID input. Ordered CTA chest to rule out PE. Fluids increased due to concern for intravascular depletion. 03/14: Worsening hepatic transaminits, hypoglycemia noted. D/w GI and CCM regarding worsening liver function, likely shock liver. Will attempt [place] transfer for hepatology services, call placed. Worsening renal function, consult placed to nephrology. 03/15: This morning decision was made by nephrology to initiate hemodialysis. Femoral Vas-Cath placed. Patient remains on Levophed and vasopressin and bicarbonate drip. Despite bicarbonate drip patient was acidotic on ABG and given additional 2 A of bicarb. Added phenyl epi gtt for HD if needed. I updated the daughter today while obtaining consent. 03/16: Patient had CT head today per neurology, supratherapeutic INR of six and given vitamin K and FFP follow, thrombocytopenia noted, patient is off of vasopressors. Metabolic acidosis resolved therefore bicarb drip discontinued. Hemoglobin 5.5 given 2 units PRBC. Potassium and mag repleted. NG tube to low intermittent suction. FiO2 decreased. serial h/h 03/17: Patient remains off vasopressors, fentanyl drip started on low-dose, vent changes per [facility] and potassium repleted aggressively. GI okay to start tube feeding. LFTs improving. Hospitalist Physical - Physical exam Narrative exam: General appearance: Present: cachectic - EENT Eyes: Present: scleral icterus. Absent: PERRL ENT: poor dentition - Neck Neck: Present: other (dark spot noted on left eye, lower half. Bilateral eyes noted with cataracts). Absent: masses or JVD, cervical LAD - Respiratory Respiratory effort: normal Respiratory: bilateral: diminished - Cardiovascular Rhythm: regular Heart Sounds: Present: S1 & S2. Absent: systolic murmur, diastolic murmur - Extremities Extremities: no ischemia, pulses intact, pulses symmetrical, No edema, normal temperature Peripheral Pulses: within normal limits - Abdominal General gastrointestinal: soft, distended, hypoactive bowel sounds - Integumentary Integumentary: Present: warm, dry - Psychiatric Psychiatric: other - Neurologic Neurologic: other (pupils not reactive, no response to painful stimuli, weak cough/gag reflex.) - Constitutional Vitals: Temp Pulse Resp BP Pulse Ox 99.9 F H 101 H 22 123/79 100 03/17/21 16:00 03/17/21 16:00 03/17/21 16:00 03/17/21 15:15 03/17/21 16:00 General appearance: Present: cachectic HEART Score - HEART Score Troponin: Troponin T < 0.010 ng/mL (0.00-0.029) 03/12/21 18:54 Results - Labs CBC & Chem 7: 03/17/21 13:37 03/17/21 04:19 Labs: Laboratory Last Values WBC 15.0 K/mm3 (4.5-11.0) H 03/17/21 04:19 RBC 3.86 M/mm3 (3.65-5.03) 03/17/21 04:19 Hgb 9.7 gm/dl (11.8-15.2) L 03/17/21 13:37 Hct 31.6 % (35.5-45.6) L 03/17/21 13:37 MCV 78 fl (84-94) L 03/17/21 04:19 MCH 24 pg (28-32) L 03/17/21 04:19 MCHC 31 % (32-34) L 03/17/21 04:19 RDW 26.2 % (13.2-15.2) H 03/17/21 04:19 Plt Count 20 K/mm3 (140-440) L 03/17/21 04:19 Add Manual Diff Complete 03/14/21 05:34 Total Counted 100 03/14/21 05:34 Seg Neutrophils % Director Financial Planning 03/14/21 05:34 Seg Neuts % (Manual) 72.0 % (40.0-70.0) H 03/14/21 05:34 Band Neutrophils % 16.0 % 03/14/21 05:34 Lymphocytes % (Manual) 5.0 % (13.4-35.0) L 03/14/21 05:34 Reactive Lymphs % (Man) 0 % 03/14/21 05:34 Monocytes % (Manual) 4.0 % (0.0-7.3) 03/14/21 05:34 Eosinophils % (Manual) 0 % (0.0-4.3) 03/14/21 05:34 Basophils % (Manual) 0 % (0.0-1.8) 03/14/21 05:34 Metamyelocytes % 1.0 % 03/14/21 05:34 Myelocytes % 2.0 % 03/14/21 05:34 Promyelocytes % 0 % 03/14/21 05:34 Blast Cells % 0 % 03/14/21 05:34 Nucleated RBC % 7.0 % (0.0-0.9) H 03/14/21 05:34 Seg Neutrophils # Man 12.2 K/mm3 (1.8-7.7) H 03/14/21 05:34 Band Neutrophils # 2.7 K/mm3 03/14/21 05:34 Lymphocytes # (Manual) 0.8 K/mm3 (1.2-5.4) L 03/14/21 05:34 Abs React Lymphs (Man) 0.0 K/mm3 03/14/21 05:34 Monocytes # (Manual) 0.7 K/mm3 (0.0-0.8) 03/14/21 05:34 Eosinophils # (Manual) 0.0 K/mm3 (0.0-0.4) 03/14/21 05:34 Basophils # (Manual) 0.0 K/mm3 (0.0-0.1) 03/14/21 05:34 Metamyelocytes # 0.2 K/mm3 03/14/21 05:34 Myelocytes # 0.3 K/mm3 03/14/21 05:34 Promyelocytes # 0.0 K/mm3 03/14/21 05:34 Blast Cells # 0.0 K/mm3 03/14/21 05:34 Pathologist Review 03/14/21 05:34 WBC Morphology Not Reportable 03/13/21 14:32 Hypersegmented Neuts Not Reportable 03/14/21 05:34 Hyposegmented Neuts Not Reportable 03/14/21 05:34 Hypogranular Neuts Not Reportable 03/14/21 05:34 Smudge Cells Not Reportable 03/14/21 05:34 Toxic Granulation 1+ 03/14/21 05:34 Toxic Vacuolation Not Reportable 03/14/21 05:34 Dohle Bodies Not Reportable 03/14/21 05:34 Pelger-Huet Anomaly Not Reportable 03/14/21 05:34 Saqib Rods Not Reportable 03/14/21 05:34 Platelet Estimate Consistent w auto 03/14/21 05:34 Clumped Platelets Director Financial Planning 03/14/21 05:34 Plt Clumps, EDTA Not Reportable 03/14/21 05:34 Large Platelets Few 03/14/21 05:34 Giant Platelets Not Reportable 03/14/21 05:34 Platelet Satelliting Not Reportable 03/14/21 05:34 Plt Morphology Comment Not Reportable 03/14/21 05:34 RBC Morphology Not Reportable 03/14/21 05:34 Dimorphic RBCs Not Reportable 03/14/21 05:34 Polychromasia 1+ 03/14/21 05:34 Hypochromasia 2+ 03/14/21 05:34 Poikilocytosis Not Reportable 03/14/21 05:34 Anisocytosis 2+ 03/14/21 05:34 Microcytosis 1+ 03/14/21 05:34 Macrocytosis Not Reportable 03/14/21 05:34 Spherocytes Not Reportable 03/14/21 05:34 Pappenheimer Bodies Not Reportable 03/14/21 05:34 Sickle Cells Not Reportable 03/14/21 05:34 Target Cells 1+ 03/14/21 05:34 Tear Drop Cells Not Reportable 03/14/21 05:34 Ovalocytes Not Reportable 03/14/21 05:34 Helmet Cells Not Reportable 03/14/21 05:34 [place] Bodies Not Reportable 03/14/21 05:34 Marble Rings Not Reportable 03/14/21 05:34 Obudlio Cells 1+ 03/14/21 05:34 Bite Cells Not Reportable 03/14/21 05:34 Crenated Cell Not Reportable 03/14/21 05:34 Elliptocytes Not Reportable 03/14/21 05:34 Acanthocytes (Spur) Not Reportable 03/14/21 05:34 Rouleaux Not Reportable 03/14/21 05:34 Hemoglobin C Crystals Not Reportable 03/14/21 05:34 Schistocytes Not Reportable 03/14/21 05:34 Malaria parasites Not Reportable 03/14/21 05:34 Wolf Bodies Not Reportable 03/14/21 05:34 Hem Pathologist Commnt Sent to pathology 03/14/21 05:34 PT 29.8 Sec. (12.2-14.9) H 03/17/21 04:19 INR 2.58 (0.87-1.13) H 03/17/21 04:19 APTT 38.7 Sec. (24.2-36.6) H 03/12/21 18:54 D-Dimer > 85919 ng/mlDDU (0-234) H 03/14/21 05:34 ABG pH 7.614 (7.320-7.450) H 03/17/21 02:34 POC ABG pCO2 23.4 mmHg (32.0-48.0) L 03/17/21 02:34 ABG pCO2 21.2 mm Hg 03/15/21 03:42 POC ABG pO2 70.5 mmHg (83-108) L 03/17/21 02:34 ABG pO2 90.7 mm Hg (80.0-90.0) H 03/15/21 03:42 POC ABG HCO3 23.2 03/17/21 02:34 ABG HCO3 6.2 mmol/L (20.0-26.0) L 03/15/21 03:42 ABG O2 Saturation 95.2 (0-100) 03/17/21 02:34 ABG O2 Content 11.6 (0.0-44) 03/15/21 03:42 POC ABG Base Excess 2.6 03/17/21 02:34 ABG Base Excess -21.8 mmol/L (-2.0-3.0) L 03/15/21 03:42 ABG Hemoglobin 9.9 (12.0-17.5) L 03/17/21 02:34 ABG Oxyhemoglobin 93.7 (94-98) L 03/17/21 02:34 ABG Carboxyhemoglobin 1.5 % (0.0-5.0) 03/15/21 03:42 ABG Methemoglobin 0.3 (0.0-1.5) 03/17/21 02:34 ABG Sodium 141.3 mmol/L (136.0-145.0) 03/17/21 02:34 ABG Potassium 3.0 mmol/L (3.40-4.50) L 03/17/21 02:34 ABG Chloride 99.0 mmol/L (98-107) 03/17/21 02:34 ABG Glucose 86 mg/dL (65-95) 03/17/21 02:34 Oxyhemoglobin 90.8 % (95.0-99.0) L 03/15/21 03:42 Carboxyhemoglobin 1.3 (0.5-1.5) 03/17/21 02:34 FiO2 50 % 03/15/21 03:42 FiO2 % 40.0 03/17/21 02:34 Sodium 147 mmol/L (137-145) H 03/17/21 04:19 Potassium 3.0 mmol/L (3.6-5.0) L 03/17/21 04:19 Chloride 99.8 mmol/L (98-107) 03/17/21 04:19 Carbon Dioxide 25 mmol/L (22-30) 03/17/21 04:19 Anion Gap 25 mmol/L 03/17/21 04:19 BUN 33 mg/dL (9-20) H 03/17/21 04:19 Creatinine 1.6 mg/dL (0.8-1.3) H 03/17/21 04:19 Estimated GFR 44 ml/min 03/17/21 04:19 BUN/Creatinine Ratio 21 % 03/17/21 04:19 Glucose 88 mg/dL (75-100) 03/17/21 04:19 POC Glucose 99 mg/dL (70-105) 03/17/21 11:46 Calcium 8.0 mg/dL (8.4-10.2) L 03/17/21 04:19 Phosphorus 3.20 mg/dL (2.5-4.5) 03/16/21 06:30 Magnesium 2.40 mg/dL (1.7-2.3) H 03/17/21 04:19 Ferritin 6545.0 ng/mL (30.0-300.0) H 03/14/21 05:34 Total Bilirubin 4.30 mg/dL (0.1-1.2) H 03/17/21 04:19 AST 1427 units/L (5-40) H 03/17/21 04:19 ALT 340 units/L (7-56) H 03/17/21 04:19 Alkaline Phosphatase 128 units/L (35-129) 03/17/21 04:19 Ammonia 72.0 umol/L (25-60) H 03/12/21 18:54 Lactate Dehydrogenase 2218 units/L (91-180) H 03/14/21 07:18 Troponin T < 0.010 ng/mL (0.00-0.029) 03/12/21 18:54 C-Reactive Protein 8.30 mg/dL (0.00-1.30) H 03/14/21 07:18 NT-Pro-B Natriuret Pep 1838 pg/mL (0-900) H 03/12/21 18:54 Total Protein 5.4 g/dL (6.3-8.2) L 03/17/21 04:19 Albumin 2.3 g/dL (3.9-5) L 03/17/21 04:19 Albumin/Globulin Ratio 0.7 % 03/17/21 04:19 Procalcitonin 8.67 ng/mL (<0.15) 03/12/21 19:04 Arterial Blood Glucose 86 mg/dL (65-95) 03/17/21 02:34 Arterial Blood Ionized Calcium 4.0 mg/dL (4.6-5.3) L 03/17/21 02:34 Random Vancomycin 5.6 ug/mL (0-40.0) 03/16/21 06:30 Coronavirus (PCR) Positive (Negative) A 03/13/21 Unknown Hepatitis A IgM Ab Non-reactive (NonReactive) 03/14/21 05:34 Hep Bs Antigen Nonreactive (Negative) 03/14/21 05:34 Hep B Core IgM Ab Non-reactive (NonReactive) 03/14/21 05:34 Hepatitis C Antibody Reactive (NonReactive) A 03/14/21 05:34 Blood Type B POSITIVE 03/16/21 08:00 Antibody Screen Negative 03/16/21 08:00 Crossmatch See Detail 03/16/21 08:00 Microbiology: Microbiology 03/12/21 21:07 Peripheral/Venous Blood Culture - Preliminary NO GROWTH AFTER 4 DAYS 03/12/21 21:00 Peripheral/Venous Blood Culture - Preliminary NO GROWTH AFTER 4 DAYS 03/12/21 00:00 Tracheal Aspirate Sputum Culture - Final [place]/IV: Voiding Method Indwelling Catheter Active Medications - Current Medications Current Medications: Generic Name Dose Route Start Last Admin Trade Name Freq PRN Reason Stop Dose Admin Albuterol 2.5 mg 03/12/21 21:29 Albuterol 2.5 Mg/3 Ml Nebu IH Q4HRT PRN Shortness Of Breath Lipase/Protease/Amylase 1 each 03/17/21 12:00 Lipase 10,500/Protease 25,000/Amylase 43,750 (Units) Dr Cap FEEDTUBE PRN PRN For Clogged Feeding Tube Dexamethasone 6 mg 03/13/21 10:00 03/17/21 10:20 Dexamethasone 4 Mg/Ml Vial IV 03/22/21 10:01 6 mg DAILY STEPHEN Administration Dextrose 0 ml 03/15/21 10:00 03/17/21 00:48 Dextrose 50% In Water (25gm) 50 Ml Syringe IV 20 ml Q30MIN PRN Administration Hypoglycemia Protocol Fentanyl 50 mcg 03/13/21 16:03 03/17/21 11:43 Fentanyl 100 Mcg/2 Ml Inj IV 50 mcg Q10MIN PRN Administration ANALGESIA Ferrous Sulfate 300 mg 03/13/21 10:00 03/17/21 10:19 Ferrous Sulfate 300 Mg (60mg Elemental Iron) / 5 Ml Oral Liqd PO 300 mg BID STEPHEN Administration Folic Acid 1 mg 03/13/21 10:00 03/17/21 10:20 Folic Acid 1 Mg Tab PO 1 mg QDAY STEPHEN Administration Hydromorphone HCl 0.5 mg 03/12/21 21:29 Hydromorphone 1 Mg/1 Ml Inj IV Q3H PRN Pain , Severe (7-10) Hydrophilic Ointment 1 applic 03/12/21 20:02 Lip Therapy Vaseline TP Q2HR PRN Dry Lips Ceftriaxone Sodium 2 gm in 100 mls @ 200 mls/hr 03/13/21 10:00 03/17/21 10:20 Rocephin/Ns 2 Gm/100 Ml IV 200 mls/hr Q24HR STEPHEN Administration Protocol Fentanyl Citrate 2,000 mcg in 100 mls @ 3.402 mls/hr 03/13/21 17:00 03/17/21 15:10 Fentanyl Drip Premix IV 1 mcg/kg/hr TITR STEPHEN 3.402 mls/hr Administration Protocol 1 MCG/KG/HR NORepinephrine/NS 8 MG-250 ML 8 mg in 250 mls @ 3.75 mls/hr 03/13/21 21:00 03/16/21 18:23 Norepinephrine/Ns 8 Mg-250 Ml (Double Conc) IV 0 mcg/min TITRATE STEPHEN 0 mls/hr Titration Protocol 2 MCG/MIN Vasopressin 20 unit/ Sodium 101 mls @ 9.09 mls/hr 03/14/21 14:00 03/15/21 23:55 Chloride IV 0 units/min TITR STEPHEN 0 mls/hr Titration Protocol 0.03 UNITS/MIN Sodium Chloride 100 mls @ 999 mls/hr 03/15/21 10:00 Nacl 0.9% IV VICKEY PRN Hypotension Phenylephrine HCl 100 mg/ 100 mls @ 3 mls/hr 03/15/21 14:00 Sodium Chloride IV TITR STEPHEN Protocol 50 MCG/MIN Potassium Chloride/Dextrose/Sod Cl 20 meq in 1,000 mls @ 100 mls/hr 03/17/21 10:00 03/17/21 10:20 D5w/0.45% Nacl/Kcl 20 Meq IV 100 mls/hr DIRECT STEPHEN Administration Lactulose 20 gm 03/17/21 13:00 03/17/21 12:54 Lactulose 20 Gm/30 Ml Oral Liqd PO 20 gm Q6HR STEPHEN Administration Lansoprazole 30 mg 03/18/21 10:00 Lansoprazole 30 Mg Solutab FEEDTUBE QDAY STEPHEN Multi-Ingred Cream/Lotion/Oil/Oint 1 applic 03/12/21 20:02 Mineral Oil/Petrolatum, White Ophth Oint 3.5 Gm OU Q4HR PRN Dry Eye(s) Ondansetron HCl 4 mg 03/12/21 21:29 Ondansetron 4 Mg/2 Ml Inj IV Q8H PRN Nausea And Vomiting Senna/Docusate Sodium 1 tab 03/12/21 22:00 03/17/21 10:56 Sennosides/Docusate Sodium 8.6/50 Mg Tab FEEDTUBE Not Given BID STEPHEN Simple Syrup 15 ml 03/17/21 12:00 Simple Syrup 15 Ml FEEDTUBE PRN PRN Hypoglycemia Simple Syrup 30 ml 03/17/21 12:00 Simple Syrup 15 Ml FEEDTUBE PRN PRN Hypoglycemia Sodium Bicarbonate 325 mg 03/17/21 12:00 Sodium Bicarbonate 325 Mg Tab FEEDTUBE PRN PRN For Clogged Feeding Tube Sodium Chloride 10 ml 03/12/21 22:00 03/17/21 10:21 Sodium Chloride 0.9% 10 Ml Flush Syringe IV 10 ml BID STEPHEN Administration Sodium Chloride 10 ml 03/12/21 21:29 Sodium Chloride 0.9% 10 Ml Flush Syringe IV PRN PRN LINE FLUSH Thiamine HCl 100 mg 03/13/21 10:00 03/17/21 10:20 Thiamine 100 Mg Tab PO 100 mg QDAY STEPHEN Administration Nutrition/Malnutrition Assess - Dietary Evaluation Nutrition/Malnutrition Findings: Nutrition Notes Start: 03/13/21 17:20 Freq: Status: Active Protocol: Document 03/17/21 11:43 [facility] (Rec: 03/17/21 12:00 SCALL [id number]) Nutrition Notes Initial or Follow up Assessment Current Diagnosis Acute Kidney Injury, Respiratory Failure Other Pertinent Diagnosis COVID-19 pneu, ESLD, Anemia, Ascites, Hep C Current Diet TF - Vital AF 1.2 at 56ml/hr Labs/Tests Na 147 K 3 BUN 33 Cr 1.6 Mg 2.4 Elevated LFTs Pertinent Medications Decadron, Ferrous sulfate, 20mEq KCl x 1 dose, D5 1/2NS + 20mEq KCl at 100ml/hr, Phenylephrine gtt Height 5 ft 11 in Weight 61.2 kg [place] Body Weight (kg) 78.18 BMI 18.8 Weight Status Underweight Subjective/Other Information RD consulted for TF. Pt remains on vent support. Per nephrology, pt s/p HD for correction of hyperkalemia; will continue to f/u for necessity of HD. Pt will not receive HD today. Burn Absent Trauma Absent Minimum of two criteria No #1 Nutrition Diagnosis Inadequate oral intake Diagnosis Progress(for reassessment Continues documentation) Is patient on ventilator? Yes Is Patient Ambulatory and/or Out of Bed No REE-([facility]-confined to bed) 1708.452 Kcal/Kg value to use for calculation 30 Approximate Energy Requirements Using 1836 kcal/Kg Calculation Used for Recommendations Kcal/kg Additional Notes Pro needs 1.2-2g/k-122g/ day Fluid needs 1ml/kcal Nutrition Intervention Nutrition Support: Vital AF 1.2 at 60ml/hr with 100ml water flush q4h. Kcal 1,728 Protein (gm) 108 Carbohydrates (gm) 159 Fat (gm) 78 Fluid (mL) 1,168 Fiber (gm) 7 Goal #1 TF tolerance Goal #2 TF to meet 80-100% energy and pro needs Goal #3 Wt maintenance and/or gain Follow-Up By: 03/19/21 Additional Comments F/U: TF tolerance, vent status , renal function <JOSIE HESS - Last Filed: 03/24/21 13:08> Assessment and Plan Assessment and plan: I saw and evaluated the patient. Discussed with the nurse practitioner and agree with their findings and plan as documented in this note. Hospitalist Physical - Constitutional Vitals: Temp Pulse Resp BP Pulse Ox 97.4 F L 130 H 0 L 52/38 0 L 03/22/21 23:42 03/23/21 01:45 03/23/21 02:01 03/23/21 02:01 03/23/21 02:10 HEART Score - HEART Score Troponin: Troponin T < 0.010 ng/mL (0.00-0.029) 03/12/21 18:54 Results - Labs CBC & Chem 7: 03/22/21 04:00 03/22/21 23:20 Labs: Laboratory Last Values WBC 18.8 K/mm3 (4.5-11.0) H 03/22/21 04:00 RBC 3.97 M/mm3 (3.65-5.03) 03/22/21 04:00 Hgb 9.8 gm/dl (11.8-15.2) L 03/22/21 04:00 Hct 34.0 % (35.5-45.6) L 03/22/21 04:00 MCV 86 fl (84-94) 03/22/21 04:00 MCH 25 pg (28-32) L 03/22/21 04:00 MCHC 29 % (32-34) L 03/22/21 04:00 RDW 29.6 % (13.2-15.2) H 03/22/21 04:00 Plt Count 26 K/mm3 (140-440) L D 03/22/21 04:00 Add Manual Diff Complete 03/14/21 05:34 Total Counted 100 03/14/21 05:34 Seg Neutrophils % Director Financial Planning 03/14/21 05:34 Seg Neuts % (Manual) 72.0 % (40.0-70.0) H 03/14/21 05:34 Band Neutrophils % 16.0 % 03/14/21 05:34 Lymphocytes % (Manual) 5.0 % (13.4-35.0) L 03/14/21 05:34 Reactive Lymphs % (Man) 0 % 03/14/21 05:34 Monocytes % (Manual) 4.0 % (0.0-7.3) 03/14/21 05:34 Eosinophils % (Manual) 0 % (0.0-4.3) 03/14/21 05:34 Basophils % (Manual) 0 % (0.0-1.8) 03/14/21 05:34 Metamyelocytes % 1.0 % 03/14/21 05:34 Myelocytes % 2.0 % 03/14/21 05:34 Promyelocytes % 0 % 03/14/21 05:34 Blast Cells % 0 % 03/14/21 05:34 Nucleated RBC % 7.0 % (0.0-0.9) H 03/14/21 05:34 Seg Neutrophils # Man 12.2 K/mm3 (1.8-7.7) H 03/14/21 05:34 Band Neutrophils # 2.7 K/mm3 03/14/21 05:34 Lymphocytes # (Manual) 0.8 K/mm3 (1.2-5.4) L 03/14/21 05:34 Abs React Lymphs (Man) 0.0 K/mm3 03/14/21 05:34 Monocytes # (Manual) 0.7 K/mm3 (0.0-0.8) 03/14/21 05:34 Eosinophils # (Manual) 0.0 K/mm3 (0.0-0.4) 03/14/21 05:34 Basophils # (Manual) 0.0 K/mm3 (0.0-0.1) 03/14/21 05:34 Metamyelocytes # 0.2 K/mm3 03/14/21 05:34 Myelocytes # 0.3 K/mm3 03/14/21 05:34 Promyelocytes # 0.0 K/mm3 03/14/21 05:34 Blast Cells # 0.0 K/mm3 03/14/21 05:34 Pathologist Review 03/14/21 05:34 WBC Morphology Not Reportable 03/14/21 05:34 Hypersegmented Neuts Not Reportable 03/14/21 05:34 Hyposegmented Neuts Not Reportable 03/14/21 05:34 Hypogranular Neuts Not Reportable 03/14/21 05:34 Smudge Cells Not Reportable 03/14/21 05:34 Toxic Granulation 1+ 03/14/21 05:34 Toxic Vacuolation Not Reportable 03/14/21 05:34 Dohle Bodies Not Reportable 03/14/21 05:34 Pelger-Huet Anomaly Not Reportable 03/14/21 05:34 Saqib Rods Not Reportable 03/14/21 05:34 Platelet Estimate Consistent w auto 03/14/21 05:34 Clumped Platelets Director Financial Planning 03/14/21 05:34 Plt Clumps, EDTA Not Reportable 03/14/21 05:34 Large Platelets Few 03/14/21 05:34 Giant Platelets Not Reportable 03/14/21 05:34 Platelet Satelliting Not Reportable 03/14/21 05:34 Plt Morphology Comment Not Reportable 03/14/21 05:34 RBC Morphology Not Reportable 03/14/21 05:34 Dimorphic RBCs Not Reportable 03/14/21 05:34 Polychromasia 1+ 03/14/21 05:34 Hypochromasia 2+ 03/14/21 05:34 Poikilocytosis Not Reportable 03/14/21 05:34 Anisocytosis 2+ 03/14/21 05:34 Microcytosis 1+ 03/14/21 05:34 Macrocytosis Not Reportable 03/14/21 05:34 Spherocytes Not Reportable 03/14/21 05:34 Pappenheimer Bodies Not Reportable 03/14/21 05:34 Sickle Cells Not Reportable 03/14/21 05:34 Target Cells 1+ 03/14/21 05:34 Tear Drop Cells Not Reportable 03/14/21 05:34 Ovalocytes Not Reportable 03/14/21 05:34 Helmet Cells Not Reportable 03/14/21 05:34 [place] Bodies Not Reportable 03/14/21 05:34 Marble Rings Not Reportable 03/14/21 05:34 [place] Cells 1+ 03/14/21 05:34 Bite Cells Not Reportable 03/14/21 05:34 Crenated Cell Not Reportable 03/14/21 05:34 Elliptocytes Not Reportable 03/14/21 05:34 Acanthocytes (Spur) Not Reportable 03/14/21 05:34 Rouleaux Not Reportable 03/14/21 05:34 Hemoglobin C Crystals Not Reportable 03/14/21 05:34 Schistocytes Not Reportable 03/14/21 05:34 Malaria parasites Not Reportable 03/14/21 05:34 Wolf Bodies Not Reportable 03/14/21 05:34 Hem Pathologist Commnt Sent to pathology 03/14/21 05:34 PT 23.6 Sec. (12.2-14.9) H 03/19/21 04:00 INR 1.91 (0.87-1.13) H 03/19/21 04:00 APTT 38.7 Sec. (24.2-36.6) H 03/12/21 18:54 D-Dimer > 98407 ng/mlDDU (0-234) H 03/21/21 Unknown ABG pH 7.093 pH Units (7.350-7.450) L* 03/23/21 01:40 POC ABG pCO2 38.3 mmHg (32.0-48.0) 03/18/21 04:14 ABG pCO2 71.1 mm Hg 03/23/21 01:40 POC ABG pO2 73.1 mmHg (83-108) L 03/18/21 04:14 ABG pO2 28.4 mm Hg (80.0-90.0) L* 03/23/21 01:40 POC ABG HCO3 31.6 03/18/21 04:14 ABG HCO3 21.2 mmol/L (20.0-26.0) 03/23/21 01:40 ABG O2 Saturation 26.3 % (95.0-99.0) L 03/23/21 01:40 ABG O2 Content 3.5 (0.0-44) 03/23/21 01:40 POC ABG Base Excess 8.4 03/18/21 04:14 ABG Base Excess -8.8 mmol/L (-2.0-3.0) L 03/23/21 01:40 ABG Hemoglobin 9.6 gm/dl (14.0-18.0) L 03/23/21 01:40 ABG Oxyhemoglobin 93.6 (94-98) L 03/18/21 04:14 ABG Carboxyhemoglobin 1.4 % (0.0-5.0) 03/23/21 01:40 ABG Methemoglobin 0.9 % (0.0-1.5) 03/23/21 01:40 ABG Sodium 140.2 mmol/L (136.0-145.0) 03/18/21 04:14 ABG Potassium 3.3 mmol/L (3.40-4.50) L 03/18/21 04:14 ABG Chloride 102.0 mmol/L (98-107) 03/18/21 04:14 ABG Glucose 193 mg/dL (65-95) H 03/18/21 04:14 Oxyhemoglobin 25.7 % (95.0-99.0) L 03/23/21 01:40 Carboxyhemoglobin 0.7 (0.5-1.5) 03/18/21 04:14 FiO2 100 % 03/23/21 01:40 FiO2 % 40.0 03/18/21 04:14 Sodium 145 mmol/L (137-145) 03/22/21 04:00 Potassium 5.1 mmol/L (3.6-5.0) H 03/22/21 04:00 Chloride 104.8 mmol/L (98-107) 03/22/21 04:00 Carbon Dioxide 18 mmol/L (22-30) L 03/22/21 04:00 Anion Gap 27 mmol/L 03/22/21 04:00 BUN 73 mg/dL (9-20) H 03/22/21 04:00 Creatinine 1.2 mg/dL (0.8-1.3) D 03/22/21 04:00 Estimated GFR > 60 ml/min 03/22/21 04:00 BUN/Creatinine Ratio 61 % 03/22/21 04:00 Glucose 150 mg/dL (75-100) H 03/22/21 23:20 POC Glucose 120 mg/dL (70-105) H 03/23/21 01:33 Calcium 9.2 mg/dL (8.4-10.2) 03/22/21 04:00 Phosphorus 3.50 mg/dL (2.5-4.5) 03/20/21 05:48 Magnesium 2.20 mg/dL (1.7-2.3) 03/20/21 05:48 Ferritin 443.8 ng/mL (30.0-300.0) H 03/21/21 Unknown Total Bilirubin 14.00 mg/dL (0.1-1.2) H 03/22/21 04:00 AST 146 units/L (5-40) H 03/22/21 04:00 ALT 132 units/L (7-56) H 03/22/21 04:00 Alkaline Phosphatase 108 units/L (35-129) 03/22/21 04:00 Ammonia 27.0 umol/L (25-60) 03/20/21 05:48 Lactate Dehydrogenase 693 units/L (91-180) H 03/21/21 Unknown Troponin T < 0.010 ng/mL (0.00-0.029) 03/12/21 18:54 C-Reactive Protein 5.00 mg/dL (0.00-1.30) H 03/21/21 Unknown NT-Pro-B Natriuret Pep 1838 pg/mL (0-900) H 03/12/21 18:54 Total Protein 5.2 g/dL (6.3-8.2) L 03/22/21 04:00 Albumin 1.8 g/dL (3.9-5) L 03/22/21 04:00 Albumin/Globulin Ratio 0.5 % 03/22/21 04:00 Procalcitonin 11.74 ng/mL (<0.15) 03/21/21 10:46 Arterial Blood Glucose 193 mg/dL (65-95) H 03/18/21 04:14 Arterial Blood Ionized Calcium 4.4 mg/dL (4.6-5.3) L 03/18/21 04:14 Urine Color Sabrina (Yellow) 03/21/21 10:20 Urine Turbidity Cloudy (Clear) 03/21/21 10:20 Urine pH 5.0 (5.0-7.0) 03/21/21 10:20 Ur Specific Rush 1.019 (1.003-1.030) 03/21/21 10:20 Urine Protein 30 mg/dl mg/dL (Negative) 03/21/21 10:20 Urine Glucose (UA) Neg mg/dL (Negative) 03/21/21 10:20 Urine Ketones Neg mg/dL (Negative) 03/21/21 10:20 Urine Blood Mod (Negative) 03/21/21 10:20 Urine Nitrite Neg (Negative) 03/21/21 10:20 Urine Bilirubin Sm (Negative) 03/21/21 10:20 Urine Ictotest Positive (Negative) 03/21/21 10:20 Urine Urobilinogen 2.0 mg/dL (<2.0) 03/21/21 10:20 Ur Leukocyte Esterase Neg (Negative) 03/21/21 10:20 Urine WBC (Auto) 24.0 /HPF (0.0-6.0) H 03/21/21 10:20 Urine RBC (Auto) 8.0 /HPF (0.0-6.0) 03/21/21 10:20 U Epithel Cells (Auto) 3.0 /HPF (0-13.0) 03/21/21 10:20 Hyaline Casts 1 /LPF 03/21/21 10:20 Granular Casts 9 /LPF 03/21/21 10:20 Urine Mucus Few /HPF 03/21/21 10:20 Fluid Type Paracentesis 03/21/21 13:30 Fluid Color Yellow 03/21/21 13:30 Fluid Appearance Hazy 03/21/21 13:30 Fluid WBC 15 /mm3 03/21/21 13:30 Fluid RBC 221 /mm3 03/21/21 13:30 Fluid Seg Neutrophils 50.0 % 03/21/21 13:30 Fluid Lymphocytes 35.0 % 03/21/21 13:30 Fluid Monocytes 15.0 % 03/21/21 13:30 Random Vancomycin 5.6 ug/mL (0-40.0) 03/16/21 06:30 Coronavirus (PCR) Positive (Negative) A 03/13/21 Unknown Hepatitis A IgM Ab Non-reactive (NonReactive) 03/14/21 05:34 Hep Bs Antigen Nonreactive (Negative) 03/14/21 05:34 Hep B Core IgM Ab Non-reactive (NonReactive) 03/14/21 05:34 Hepatitis C Antibody Reactive (NonReactive) A 03/14/21 05:34 Blood Type B POSITIVE 03/16/21 08:00 Antibody Screen Negative 03/16/21 08:00 Crossmatch See Detail 03/16/21 08:00 Microbiology: Microbiology 03/21/21 13:30 Ascities Fluid Body Fluid Culture - Preliminary 03/21/21 10:46 Peripheral/Venous Blood Culture - Preliminary NO GROWTH AFTER 72 HOURS 03/21/21 10:46 Peripheral/Venous Blood Culture - Preliminary NO GROWTH AFTER 72 HOURS 03/21/21 13:40 Tracheal Aspirate Sputum Culture - Final 03/21/21 10:20 Urine,Clean Catch Urine Culture - Final NO GROWTH AFTER 48 HOURS [place]/IV: Voiding Method Indwelling Catheter Nutrition/Malnutrition Assess - Dietary Evaluation Nutrition/Malnutrition Findings: Nutrition Notes Start: 03/13/21 17:20 Freq: Status: Discharge Protocol: Document 03/21/21 14:19 GERALD (Rec: 03/21/21 14:47 GERALD [id number]) Nutrition Notes Initial or Follow up Brief Note Current Diet TF remains on hold. Height 5 ft 11 in Weight 61.2 kg [place] Body Weight (kg) 78.18 BMI 18.8 Weight change and time frame No body weight change reported . Weight Status Underweight Subjective/Other Information RD consult on TF resume and tolerance. TF remains on hold. Pt continues on Mechanical Ventilation. As per MD, discussion with family regarding Trach and PEG due to mental satus and poor prognosis. TF resumed 9:30 03/20 @ 20 ml/ hr. TF stopped 02:50 03/21, stomach distended and labored breathing, 250 ml residuals. Incident with necrotic fingers on 03/20. Percent of energy/protein needs met: TF remains on hold. Nutrition Intervention Follow-Up By: 03/23/21 Additional Comments F/U: TF restart/tolerance
[2021-03-18] MEDS: LACTULOSE 20 GM/30 ML ORAL LIQD PO SCH ×6 (00:07→21:06)
[2021-03-18] MEDS: D5W/0.45% NACL/KCL 20 MEQ 20 MEQ/1,000 ML BAG IV SCH ×2 (05:56→16:30)
--- NOTE | 2021-03-18 06:41 | XRay Report ---
CHEST 1 VIEW 03/18/2021 6:07 AM INDICATION / CLINICAL INFORMATION: follow up respiratory failure. COMPARISON: 03/17/21 FINDINGS: SUPPORT DEVICES: Stable, satisfactory device positioning. HEART / MEDIASTINUM: Stable. LUNGS / PLEURA: Bilateral pulmonary opacities are unchanged. No pneumothorax. ADDITIONAL FINDINGS: No significant additional findings. IMPRESSION: 1. No significant change. Signer Name: Damion Mckinney MD Signed: 03/18/2021 6:36 AM Workstation Name: [id number]
[2021-03-18 06:52] LABS: Hematocrit 30.7 % (35.5-45.6); Hemoglobin 9.3 gm/dl (11.8-15.2); Mean Corpuscular HGB Conc 30 % (32-34); Mean Corpuscular Volume 79 fl (84-94); Red Blood Count 3.87 M/mm3 (3.65-5.03)
[2021-03-18 07:16] LABS: Alanine Aminotransferase 248 units/L (7-56); BUN/Creatinine Ratio 38; Blood Urea Nitrogen 42 mg/dL (9-20); Calcium 8.1 mg/dL (8.4-10.2); Hemolysis Index 3
[2021-03-18] MEDS ORDERED: POTASSIUM CHLORIDE 20 MEQ PACKET FEEDTUBE SCH (08:00)
[2021-03-18] MEDS: FOLIC ACID 1 MG TAB PO SCH (09:00)
[2021-03-18] MEDS: dexAMETHasone 4 MG/ML VIAL IV SCH (09:00)
[2021-03-18] MEDS: LANSOPRAZOLE 30 MG SOLUTAB FEEDTUBE SCH (09:00)
[2021-03-18] MEDS: THIAMINE 100 MG TAB PO SCH (09:00)
[2021-03-18] MEDS: FERROUS SULFATE 300 MG (60MG Elemental Iron) / 5 mL ORAL LIQD PO SCH ×2 (09:00→21:08)
[2021-03-18] MEDS: MULTIVITAMIN / MINERAL ORAL LIQUID 15 ML PO SCH (09:01)
[2021-03-18] MEDS: cefTRIAXone/NS 2 GM/100 ML 2 GM/100 ML BAG IV SCH (09:01)
[2021-03-18] MEDS: SENNOSIDES/DOCUSATE SODIUM 8.6/50 MG TAB FEEDTUBE SCH ×2 (09:01→21:08)
--- NOTE | 2021-03-18 10:10 | Progress Note ---
Assessment and Plan Impression: * IVON--ATN * sepsis * acute hypoxic resp failure * COVID PNA * Hepatitis * hyperkalemia--resolved * hypokalemia * refractory acidosis Plan: * k and co2 noted, s/p hemodialysis for correction of acidosis and hyperkalemia * follow up lytes in am to assess for continued need for [employer] * no plans for hd today, can remove vasc cath * replete k and mag prn * continue ivfs, added albumin * kayexlate prn * daily lytes, strict i/os * keep MAP >65, vasopressors prn * avoid nephrotoxins Subjective Date of service: 03/18/21 Principal diagnosis: Liver, anemia Interval history: labs and chart reviewed events noted Objective - Exam Narrative Exam: Physical Exam: exam deferred, primary team exam noted - Vital Signs Vital signs: Vital Signs - 12hr 03/17/21 03/17/21 03/17/21 22:15 22:30 22:41 Temperature Pulse Rate 87 84 84 Pulse Rate [ From Monitor] Respiratory 18 14 13 Rate Blood Pressure 126/81 127/79 127/79 O2 Sat by Pulse 100 100 100 Oximetry 03/17/21 03/17/21 03/17/21 22:45 23:00 23:15 Temperature Pulse Rate 84 84 83 Pulse Rate [ From Monitor] Respiratory 13 13 14 Rate Blood Pressure 122/79 128/80 128/78 O2 Sat by Pulse 100 100 100 Oximetry 03/17/21 03/17/21 03/18/21 23:30 23:45 00:00 Temperature 98.8 F Pulse Rate 84 82 81 Pulse Rate [ 89 From Monitor] Respiratory 15 17 13 Rate Blood Pressure 132/82 129/80 127/79 O2 Sat by Pulse 100 100 100 Oximetry 03/18/21 03/18/21 03/18/21 00:09 00:15 00:30 Temperature Pulse Rate 81 81 83 Pulse Rate [ From Monitor] Respiratory 12 17 Rate Blood Pressure 129/80 131/82 132/80 O2 Sat by Pulse 100 100 100 Oximetry 03/18/21 03/18/21 03/18/21 00:45 01:00 01:15 Temperature Pulse Rate 82 82 82 Pulse Rate [ From Monitor] Respiratory 11 L 14 12 Rate Blood Pressure 132/80 128/80 134/82 O2 Sat by Pulse 100 100 100 Oximetry 03/18/21 03/18/21 03/18/21 01:30 01:45 02:00 Temperature Pulse Rate 80 81 79 Pulse Rate [ From Monitor] Respiratory 12 11 L 19 Rate Blood Pressure 135/80 131/78 133/80 O2 Sat by Pulse 100 100 100 Oximetry 03/18/21 03/18/21 03/18/21 02:15 02:30 02:45 Temperature Pulse Rate 80 82 80 Pulse Rate [ From Monitor] Respiratory 15 18 15 Rate Blood Pressure 131/81 138/83 131/80 O2 Sat by Pulse 100 100 100 Oximetry 03/18/21 03/18/21 03/18/21 03:00 03:15 03:30 Temperature Pulse Rate 80 80 80 Pulse Rate [ From Monitor] Respiratory 13 12 11 L Rate Blood Pressure 132/80 133/79 124/80 O2 Sat by Pulse 100 100 100 Oximetry 03/18/21 03/18/21 03/18/21 03:45 03:54 04:00 Temperature 98.1 F Pulse Rate 79 80 Pulse Rate [ 89 From Monitor] Respiratory 12 12 Rate Blood Pressure 128/80 133/81 O2 Sat by Pulse 100 100 Oximetry 03/18/21 03/18/21 03/18/21 04:15 04:30 04:45 Temperature Pulse Rate 80 80 77 Pulse Rate [ From Monitor] Respiratory 12 13 20 Rate Blood Pressure 136/84 125/77 126/78 O2 Sat by Pulse 100 100 100 Oximetry 03/18/21 03/18/21 03/18/21 05:00 05:02 05:15 Temperature Pulse Rate 85 90 77 Pulse Rate [ From Monitor] Respiratory 15 10 L Rate Blood Pressure 112/75 127/83 130/79 O2 Sat by Pulse 100 100 100 Oximetry 03/18/21 03/18/21 03/18/21 05:30 05:45 06:00 Temperature Pulse Rate 78 76 77 Pulse Rate [ From Monitor] Respiratory 13 12 12 Rate Blood Pressure 129/78 133/81 140/82 O2 Sat by Pulse 100 100 100 Oximetry 03/18/21 03/18/21 03/18/21 06:15 06:30 06:45 Temperature Pulse Rate 77 78 77 Pulse Rate [ From Monitor] Respiratory 12 12 15 Rate Blood Pressure 135/81 122/79 129/78 O2 Sat by Pulse 100 100 100 Oximetry 03/18/21 03/18/21 03/18/21 07:00 07:15 07:30 Temperature Pulse Rate 79 76 79 Pulse Rate [ From Monitor] Respiratory 13 15 15 Rate Blood Pressure 123/77 127/77 120/79 O2 Sat by Pulse 100 100 100 Oximetry 03/18/21 03/18/21 03/18/21 07:45 08:00 08:15 Temperature 97.5 F L Pulse Rate 79 76 77 Pulse Rate [ 77 From Monitor] Respiratory 15 11 L 14 Rate Blood Pressure 125/81 123/77 122/76 O2 Sat by Pulse 100 100 100 Oximetry 03/18/21 03/18/21 03/18/21 08:30 08:45 09:00 Temperature Pulse Rate 78 89 82 Pulse Rate [ From Monitor] Respiratory 13 24 12 Rate Blood Pressure 125/78 133/81 128/77 O2 Sat by Pulse 100 98 98 Oximetry 03/18/21 09:15 Temperature Pulse Rate 84 Pulse Rate [ From Monitor] Respiratory 10 L Rate Blood Pressure 130/77 O2 Sat by Pulse 97 Oximetry - Lab 03/17/21 13:37 03/18/21 06:20 Most recent lab results ABG pH 7.534 (7.320-7.450) H 03/18/21 04:14 ABG pCO2 21.2 mm Hg 03/15/21 03:42 ABG pO2 90.7 mm Hg (80.0-90.0) H 03/15/21 03:42 ABG HCO3 6.2 mmol/L (20.0-26.0) L 03/15/21 03:42 ABG O2 Saturation 94.5 (0-100) 03/18/21 04:14 Calcium 8.1 mg/dL (8.4-10.2) L 03/18/21 06:20 Phosphorus 3.20 mg/dL (2.5-4.5) 03/16/21 06:30 Magnesium 2.40 mg/dL (1.7-2.3) H 03/17/21 04:19 Medications & Allergies - Medications Allergies/Adverse Reactions: Allergies No Known Allergies Allergy (Verified 02/27/21 20:19) Home Medications: Home Medications Medication Instructions Recorded Confirmed Last Taken Type Ferrous Sulfate [Feosol 325 MG tab] 325 mg PO BID #30 tablet 03/04/21 Unknown Rx Folic Acid [Folvite] 1 mg PO QDAY #30 tablet 03/04/21 Unknown Rx Spironolactone [Aldactone] 50 mg PO QDAY #30 tablet 03/04/21 Unknown Rx Thiamine [Vitamin B-1] 100 mg PO QDAY #30 tablet 03/04/21 Unknown Rx Active Medications: Generic Name Dose Route Start Last Admin Trade Name Freq PRN Reason Stop Dose Admin Albuterol 2.5 mg 03/12/21 21:29 Albuterol 2.5 Mg/3 Ml Nebu IH Q4HRT PRN Shortness Of Breath Lipase/Protease/Amylase 1 each 03/17/21 12:00 Lipase 10,500/Protease 25,000/Amylase 43,750 (Units) Dr Marrero FEEDTUBE PRN PRN For Clogged Feeding Tube Dexamethasone 6 mg 03/13/21 10:00 03/18/21 09:00 Dexamethasone 4 Mg/Ml Vial IV 03/22/21 10:01 6 mg DAILY STEPHEN Administration Dextrose 0 ml 03/15/21 10:00 03/17/21 00:48 Dextrose 50% In Water (25gm) 50 Ml Syringe IV 20 ml Q30MIN PRN Administration Hypoglycemia Protocol Fentanyl 50 mcg 03/13/21 16:03 03/17/21 11:43 Fentanyl 100 Mcg/2 Ml Inj IV 50 mcg Q10MIN PRN Administration ANALGESIA Ferrous Sulfate 300 mg 03/13/21 10:00 03/18/21 09:00 Ferrous Sulfate 300 Mg (60mg Elemental Iron) / 5 Ml Oral Liqd PO 300 mg BID STEPHEN Administration Folic Acid 1 mg 03/13/21 10:00 03/18/21 09:00 Folic Acid 1 Mg Tab PO 1 mg QDAY STEPHEN Administration Hydromorphone HCl 0.5 mg 03/12/21 21:29 Hydromorphone 1 Mg/1 Ml Inj IV Q3H PRN Pain , Severe (7-10) Hydrophilic Ointment 1 applic 03/12/21 20:02 Lip Therapy Vaseline TP Q2HR PRN Dry Lips Ceftriaxone Sodium 2 gm in 100 mls @ 200 mls/hr 03/13/21 10:00 03/18/21 09:01 Rocephin/Ns 2 Gm/100 Ml IV 200 mls/hr Q24HR STEPHEN Administration Protocol Fentanyl Citrate 2,000 mcg in 100 mls @ 3.402 mls/hr 03/13/21 17:00 03/17/21 15:10 Fentanyl Drip Premix IV 1 mcg/kg/hr TITR STEPHEN 3.402 mls/hr Administration Protocol 1 MCG/KG/HR NORepinephrine/NS 8 MG-250 ML 8 mg in 250 mls @ 3.75 mls/hr 03/13/21 21:00 03/16/21 18:23 Norepinephrine/Ns 8 Mg-250 Ml (Double Conc) IV 0 mcg/min TITRATE STEPHEN 0 mls/hr Titration Protocol 2 MCG/MIN Vasopressin 20 unit/ Sodium 101 mls @ 9.09 mls/hr 03/14/21 14:00 03/15/21 23:55 Chloride IV 0 units/min TITR STEPHEN 0 mls/hr Titration Protocol 0.03 UNITS/MIN Sodium Chloride 100 mls @ 999 mls/hr 03/15/21 10:00 Nacl 0.9% IV VICKEY PRN Hypotension Phenylephrine HCl 100 mg/ 100 mls @ 3 mls/hr 03/15/21 14:00 Sodium Chloride IV TITR STEPHEN Protocol 50 MCG/MIN Potassium Chloride/Dextrose/Sod Cl 20 meq in 1,000 mls @ 100 mls/hr 03/17/21 10:00 03/18/21 05:56 D5w/0.45% Nacl/Kcl 20 Meq IV 100 mls/hr DIRECT STEPHEN Administration Magnesium Sulfate 2 gm in 50 mls @ 25 mls/hr 03/18/21 10:06 Magnesium Sulfate 2gm/50ml IV 03/18/21 12:05 ONCE ONE Lactulose 20 gm 03/17/21 13:00 03/18/21 05:55 Lactulose 20 Gm/30 Ml Oral Liqd PO 20 gm Q6HR STEPHEN Administration Lansoprazole 30 mg 03/18/21 10:00 03/18/21 09:00 Lansoprazole 30 Mg Solutab FEEDTUBE 30 mg QDAY STEPHEN Administration Multi-Ingred Cream/Lotion/Oil/Oint 1 applic 03/12/21 20:02 Mineral Oil/Petrolatum, White Ophth Oint 3.5 Gm OU Q4HR PRN Dry Eye(s) Ondansetron HCl 4 mg 03/12/21 21:29 Ondansetron 4 Mg/2 Ml Inj IV Q8H PRN Nausea And Vomiting Potassium Chloride 40 meq 03/18/21 08:00 03/18/21 08:32 Potassium Chloride 20 Meq Packet FEEDTUBE 03/18/21 12:00 40 meq ONCE@0800 STEPHEN Administration Senna/Docusate Sodium 1 tab 03/12/21 22:00 03/18/21 09:01 Sennosides/Docusate Sodium 8.6/50 Mg Tab FEEDTUBE Not Given BID STEPHEN Simple Syrup 15 ml 03/17/21 12:00 Simple Syrup 15 Ml FEEDTUBE PRN PRN Hypoglycemia Simple Syrup 30 ml 03/17/21 12:00 Simple Syrup 15 Ml FEEDTUBE PRN PRN Hypoglycemia Sodium Bicarbonate 325 mg 03/17/21 12:00 Sodium Bicarbonate 325 Mg Tab FEEDTUBE PRN PRN For Clogged Feeding Tube Sodium Chloride 10 ml 03/12/21 22:00 03/18/21 09:01 Sodium Chloride 0.9% 10 Ml Flush Syringe IV 10 ml BID STEPHEN Administration Sodium Chloride 10 ml 03/12/21 21:29 Sodium Chloride 0.9% 10 Ml Flush Syringe IV PRN PRN LINE FLUSH Thiamine HCl 100 mg 03/13/21 10:00 03/18/21 09:00 Thiamine 100 Mg Tab PO 100 mg QDAY STEPHEN Administration
--- NOTE | 2021-03-18 10:11 | Progress Note ---
Assessment and Plan 65 y/o male with acute respiratory failure most likely secondary to COVID plus right sided effusion secondary to large volume ascities from liver cirrhosis. 03/18/21: Dropped tidal volume to 380 this am. Will ask nursing to discontinue fent and place patient on PSV after about an hour or so of being off sedation. 03/17/21: Will drop tidal volume down to 400. repeat ABG in am. If patient seizes, please obtain stat ABG. Could be secondary to alkalemia. Mental state not improving post improvement of acidemia is a poor prognostic sign in my opinion. Neurology on board and head CT was negative. Neurology wants to try lactulose so ordered today. Will do for 24-36 hours to see if this helps with mental state but doubt it will. Very very guarded to poor prognosis. Plan to have family meeting next week (friday) 03/16/21: Acidemia is improved with HD. Likely will hold today. Stopped bicarb drip and patient is now off pressors. Given drop in hemoglobin need to correct coagulopathy. FFP, vitamin K. GI already following. Hopefully patient does not have esophargeal or gastric varices. No overt evidence of bleeding. q6hour H/H's. Monitor platelets but hold on transfusion for now. Neurology concerned about ammonia level. Have no problem with empiric lactulose but will not trend ammonia levels. Very very guarded prognosis. 03/15/21: Vascath placed in right groin. ORder theron in the event it is needed during HD. Increase bicarb drip to 200. Hold all sedatives. No acute evidence of bleeding currently. Continue to trend LFT's and COags. Very very guarded prognosis. If not able to tolerate HD to fix acidemia, prognosis becomes gravely poor. 03/14/21: Started patient on bicarb drip and gave a few amps of sodium bicarb. Added vasopressin therapy. Continue Steroids and Remdesivir. Off sedation. Gu arded prognosis. 1. Wean Vent settings and sedation as tolerated 2. Remdesivir and Steroids, Pending CRP, actemra 3. Hold on proning now that intubated, not able to paralyze and adequately sedate in the ED 4. Negative fluid balance if possible 5. Needs paracentesis, this should take care of pleural effusion as well. 6. Guarded prognosis. CCT 31 minutes. Subjective Date of service: 03/18/21 Principal diagnosis: Liver, anemia Interval history: Sedation started yesterday as staff felt patient looked uncomfortable. To me appears the same today as yesterday. No BM's documented despite lactulose. Mental state is the same. ABG better with smaller tidal volume. Objective Vital Signs - 12hr 03/17/21 03/17/21 03/17/21 22:15 22:30 22:41 Temperature Pulse Rate 87 84 84 Pulse Rate [ From Monitor] Respiratory 18 14 13 Rate Blood Pressure 126/81 127/79 127/79 O2 Sat by Pulse 100 100 100 Oximetry 03/17/21 03/17/21 03/17/21 22:45 23:00 23:15 Temperature Pulse Rate 84 84 83 Pulse Rate [ From Monitor] Respiratory 13 13 14 Rate Blood Pressure 122/79 128/80 128/78 O2 Sat by Pulse 100 100 100 Oximetry 03/17/21 03/17/21 03/18/21 23:30 23:45 00:00 Temperature 98.8 F Pulse Rate 84 82 81 Pulse Rate [ 89 From Monitor] Respiratory 15 17 13 Rate Blood Pressure 132/82 129/80 127/79 O2 Sat by Pulse 100 100 100 Oximetry 03/18/21 03/18/21 03/18/21 00:09 00:15 00:30 Temperature Pulse Rate 81 81 83 Pulse Rate [ From Monitor] Respiratory 12 17 Rate Blood Pressure 129/80 131/82 132/80 O2 Sat by Pulse 100 100 100 Oximetry 03/18/21 03/18/21 03/18/21 00:45 01:00 01:15 Temperature Pulse Rate 82 82 82 Pulse Rate [ From Monitor] Respiratory 11 L 14 12 Rate Blood Pressure 132/80 128/80 134/82 O2 Sat by Pulse 100 100 100 Oximetry 03/18/21 03/18/21 03/18/21 01:30 01:45 02:00 Temperature Pulse Rate 80 81 79 Pulse Rate [ From Monitor] Respiratory 12 11 L 19 Rate Blood Pressure 135/80 131/78 133/80 O2 Sat by Pulse 100 100 100 Oximetry 03/18/21 03/18/21 03/18/21 02:15 02:30 02:45 Temperature Pulse Rate 80 82 80 Pulse Rate [ From Monitor] Respiratory 15 18 15 Rate Blood Pressure 131/81 138/83 131/80 O2 Sat by Pulse 100 100 100 Oximetry 03/18/21 03/18/21 03/18/21 03:00 03:15 03:30 Temperature Pulse Rate 80 80 80 Pulse Rate [ From Monitor] Respiratory 13 12 11 L Rate Blood Pressure 132/80 133/79 124/80 O2 Sat by Pulse 100 100 100 Oximetry 03/18/21 03/18/21 03/18/21 03:45 03:54 04:00 Temperature 98.1 F Pulse Rate 79 80 Pulse Rate [ 89 From Monitor] Respiratory 12 12 Rate Blood Pressure 128/80 133/81 O2 Sat by Pulse 100 100 Oximetry 03/18/21 03/18/21 03/18/21 04:15 04:30 04:45 Temperature Pulse Rate 80 80 77 Pulse Rate [ From Monitor] Respiratory 12 13 20 Rate Blood Pressure 136/84 125/77 126/78 O2 Sat by Pulse 100 100 100 Oximetry 03/18/21 03/18/21 03/18/21 05:00 05:02 05:15 Temperature Pulse Rate 85 90 77 Pulse Rate [ From Monitor] Respiratory 15 10 L Rate Blood Pressure 112/75 127/83 130/79 O2 Sat by Pulse 100 100 100 Oximetry 03/18/21 03/18/21 03/18/21 05:30 05:45 06:00 Temperature Pulse Rate 78 76 77 Pulse Rate [ From Monitor] Respiratory 13 12 12 Rate Blood Pressure 129/78 133/81 140/82 O2 Sat by Pulse 100 100 100 Oximetry 03/18/21 03/18/21 03/18/21 06:15 06:30 06:45 Temperature Pulse Rate 77 78 77 Pulse Rate [ From Monitor] Respiratory 12 12 15 Rate Blood Pressure 135/81 122/79 129/78 O2 Sat by Pulse 100 100 100 Oximetry 03/18/21 03/18/21 03/18/21 07:00 07:15 07:30 Temperature Pulse Rate 79 76 79 Pulse Rate [ From Monitor] Respiratory 13 15 15 Rate Blood Pressure 123/77 127/77 120/79 O2 Sat by Pulse 100 100 100 Oximetry 03/18/21 03/18/21 03/18/21 07:45 08:00 08:15 Temperature 97.5 F L Pulse Rate 79 76 77 Pulse Rate [ 77 From Monitor] Respiratory 15 11 L 14 Rate Blood Pressure 125/81 123/77 122/76 O2 Sat by Pulse 100 100 100 Oximetry 03/18/21 03/18/21 03/18/21 08:30 08:45 09:00 Temperature Pulse Rate 78 89 82 Pulse Rate [ From Monitor] Respiratory 13 24 12 Rate Blood Pressure 125/78 133/81 128/77 O2 Sat by Pulse 100 98 98 Oximetry 03/18/21 09:15 Temperature Pulse Rate 84 Pulse Rate [ From Monitor] Respiratory 10 L Rate Blood Pressure 130/77 O2 Sat by Pulse 97 Oximetry Gastrointestinal: normoactive bowel sounds Integumentary: normal CBC and BMP: 03/17/21 13:37 03/18/21 06:20 ABG, PT/INR, D-dimer: ABG ABG pH 7.534 (7.320-7.450) H 03/18/21 04:14 POC ABG pCO2 38.3 mmHg (32.0-48.0) 03/18/21 04:14 ABG pCO2 21.2 mm Hg 03/15/21 03:42 POC ABG pO2 73.1 mmHg (83-108) L 03/18/21 04:14 ABG pO2 90.7 mm Hg (80.0-90.0) H 03/15/21 03:42 POC ABG HCO3 31.6 03/18/21 04:14 ABG O2 Saturation 94.5 (0-100) 03/18/21 04:14 PT/INR, D-dimer PT 29.8 Sec. (12.2-14.9) H 03/17/21 04:19 INR 2.58 (0.87-1.13) H 03/17/21 04:19 D-Dimer > 14879 ng/mlDDU (0-234) H 03/14/21 05:34 Abnormal lab findings: Abnormal Labs 03/12/21 03/12/21 03/12/21 18:17 18:54 18:54 WBC 15.4 H RBC Hgb 9.0 L Hct 33.2 L MCV 77 L MCH 21 L MCHC 27 L RDW 28.1 H Plt Count Seg Neuts % (Manual) 86.0 H Lymphocytes % (Manual) 4.0 L Monocytes % (Manual) 8.0 H Nucleated RBC % Seg Neutrophils # Man 13.2 H Lymphocytes # (Manual) 0.6 L Monocytes # (Manual) 1.2 H PT INR APTT D-Dimer ABG pH POC ABG pCO2 POC ABG pO2 ABG pO2 ABG HCO3 ABG O2 Saturation ABG Base Excess ABG Hemoglobin ABG Oxyhemoglobin ABG Sodium ABG Potassium ABG Glucose Oxyhemoglobin Sodium 136 L Potassium 5.4 H Carbon Dioxide 16 L BUN 32 H Creatinine Glucose 104 H POC Glucose 58 L Calcium Magnesium Ferritin Total Bilirubin 1.40 H AST 71 H ALT Alkaline Phosphatase 164 H Ammonia Lactate Dehydrogenase C-Reactive Protein NT-Pro-B Natriuret Pep Total Protein Albumin 2.2 L Arterial Blood Glucose Arterial Blood Ionized Calcium Coronavirus (PCR) Hepatitis C Antibody Crossmatch 03/12/21 03/12/21 03/12/21 18:54 18:54 18:54 WBC RBC Hgb Hct MCV MCH MCHC RDW Plt Count Seg Neuts % (Manual) Lymphocytes % (Manual) Monocytes % (Manual) Nucleated RBC % Seg Neutrophils # Man Lymphocytes # (Manual) Monocytes # (Manual) PT 17.6 H INR 1.31 H APTT 38.7 H D-Dimer > 57291 H ABG pH POC ABG pCO2 POC ABG pO2 ABG pO2 ABG HCO3 ABG O2 Saturation ABG Base Excess ABG Hemoglobin ABG Oxyhemoglobin ABG Sodium ABG Potassium ABG Glucose Oxyhemoglobin Sodium Potassium Carbon Dioxide BUN Creatinine Glucose POC Glucose Calcium Magnesium Ferritin Total Bilirubin AST ALT Alkaline Phosphatase Ammonia 72.0 H Lactate Dehydrogenase C-Reactive Protein NT-Pro-B Natriuret Pep 1838 H Total Protein Albumin Arterial Blood Glucose Arterial Blood Ionized Calcium Coronavirus (PCR) Hepatitis C Antibody Crossmatch 03/12/21 03/12/21 03/12/21 18:54 19:04 19:21 WBC RBC Hgb Hct MCV MCH MCHC RDW Plt Count Seg Neuts % (Manual) Lymphocytes % (Manual) Monocytes % (Manual) Nucleated RBC % Seg Neutrophils # Man Lymphocytes # (Manual) Monocytes # (Manual) PT INR APTT D-Dimer ABG pH POC ABG pCO2 POC ABG pO2 ABG pO2 ABG HCO3 ABG O2 Saturation ABG Base Excess ABG Hemoglobin ABG Oxyhemoglobin ABG Sodium ABG Potassium ABG Glucose Oxyhemoglobin Sodium Potassium Carbon Dioxide BUN Creatinine Glucose POC Glucose 30 L Calcium Magnesium Ferritin 414.7 H Total Bilirubin AST ALT Alkaline Phosphatase Ammonia Lactate Dehydrogenase 287 H C-Reactive Protein 10.80 H NT-Pro-B Natriuret Pep Total Protein Albumin Arterial Blood Glucose Arterial Blood Ionized Calcium Coronavirus (PCR) Hepatitis C Antibody Crossmatch 03/12/21 03/12/21 03/13/21 19:50 20:14 00:05 WBC RBC Hgb Hct MCV MCH MCHC RDW Plt Count Seg Neuts % (Manual) Lymphocytes % (Manual) Monocytes % (Manual) Nucleated RBC % Seg Neutrophils # Man Lymphocytes # (Manual) Monocytes # (Manual) PT INR APTT D-Dimer ABG pH POC ABG pCO2 POC ABG pO2 314.9 H ABG pO2 ABG HCO3 ABG O2 Saturation ABG Base Excess ABG Hemoglobin ABG Oxyhemoglobin 98.9 H ABG Sodium ABG Potassium ABG Glucose 229 H Oxyhemoglobin Sodium Potassium Carbon Dioxide BUN Creatinine Glucose POC Glucose 24 L 371 H Calcium Magnesium Ferritin Total Bilirubin AST ALT Alkaline Phosphatase Ammonia Lactate Dehydrogenase C-Reactive Protein NT-Pro-B Natriuret Pep Total Protein Albumin Arterial Blood Glucose 229 H Arterial Blood Ionized Calcium Coronavirus (PCR) Hepatitis C Antibody Crossmatch 03/13/21 03/13/21 03/13/21 02:29 14:32 14:32 WBC 17.3 H RBC Hgb 8.8 L Hct 31.0 L MCV 75 L MCH 22 L MCHC 29 L RDW 27.5 H Plt Count Seg Neuts % (Manual) 91.0 H Lymphocytes % (Manual) 0 L Monocytes % (Manual) Nucleated RBC % 2.0 H Seg Neutrophils # Man 15.7 H Lymphocytes # (Manual) 0.0 L Monocytes # (Manual) 0.9 H PT INR APTT D-Dimer ABG pH POC ABG pCO2 POC ABG pO2 ABG pO2 ABG HCO3 ABG O2 Saturation ABG Base Excess ABG Hemoglobin ABG Oxyhemoglobin ABG Sodium ABG Potassium ABG Glucose Oxyhemoglobin Sodium Potassium Carbon Dioxide 16 L BUN 35 H Creatinine 1.5 H Glucose 58 L POC Glucose 128 H Calcium 7.8 L Magnesium Ferritin Total Bilirubin 1.40 H AST 82 H ALT Alkaline Phosphatase 163 H Ammonia Lactate Dehydrogenase C-Reactive Protein NT-Pro-B Natriuret Pep Total Protein 6.2 L Albumin 1.7 L Arterial Blood Glucose Arterial Blood Ionized Calcium Coronavirus (PCR) Hepatitis C Antibody Crossmatch 03/13/21 03/14/21 03/14/21 Unknown 05:00 05:34 WBC 16.9 H RBC Hgb 7.9 L Hct 29.4 L MCV 80 L MCH 22 L MCHC 27 L RDW 28.6 H Plt Count Seg Neuts % (Manual) 72.0 H Lymphocytes % (Manual) 5.0 L Monocytes % (Manual) Nucleated RBC % 7.0 H Seg Neutrophils # Man 12.2 H Lymphocytes # (Manual) 0.8 L Monocytes # (Manual) PT INR APTT D-Dimer ABG pH 7.167 L POC ABG pCO2 24.6 L POC ABG pO2 ABG pO2 ABG HCO3 ABG O2 Saturation ABG Base Excess ABG Hemoglobin 9.3 L ABG Oxyhemoglobin ABG Sodium 135.2 L ABG Potassium 5.5 H ABG Glucose Oxyhemoglobin Sodium Potassium Carbon Dioxide BUN Creatinine Glucose POC Glucose Calcium Magnesium Ferritin Total Bilirubin AST ALT Alkaline Phosphatase Ammonia Lactate Dehydrogenase C-Reactive Protein NT-Pro-B Natriuret Pep Total Protein Albumin Arterial Blood Glucose Arterial Blood Ionized Calcium 4.3 L Coronavirus (PCR) Positive A Hepatitis C Antibody Crossmatch 03/14/21 03/14/21 03/14/21 05:34 05:34 05:34 WBC RBC Hgb Hct MCV MCH MCHC RDW Plt Count Seg Neuts % (Manual) Lymphocytes % (Manual) Monocytes % (Manual) Nucleated RBC % Seg Neutrophils # Man Lymphocytes # (Manual) Monocytes # (Manual) PT INR APTT D-Dimer > 20088 H ABG pH POC ABG pCO2 POC ABG pO2 ABG pO2 ABG HCO3 ABG O2 Saturation ABG Base Excess ABG Hemoglobin ABG Oxyhemoglobin ABG Sodium ABG Potassium ABG Glucose Oxyhemoglobin Sodium Potassium 5.7 H D Carbon Dioxide BUN 37 H Creatinine Glucose POC Glucose Calcium 7.9 L Magnesium Ferritin 6545.0 H Total Bilirubin 1.80 H AST 4019 H ALT 501 H Alkaline Phosphatase Ammonia Lactate Dehydrogenase 2367 H C-Reactive Protein 8.40 H NT-Pro-B Natriuret Pep Total Protein 5.8 L Albumin 1.8 L Arterial Blood Glucose Arterial Blood Ionized Calcium Coronavirus (PCR) Hepatitis C Antibody Crossmatch 03/14/21 03/14/21 03/14/21 05:34 07:16 07:18 WBC RBC Hgb Hct MCV MCH MCHC RDW Plt Count Seg Neuts % (Manual) Lymphocytes % (Manual) Monocytes % (Manual) Nucleated RBC % Seg Neutrophils # Man Lymphocytes # (Manual) Monocytes # (Manual) PT INR APTT D-Dimer ABG pH POC ABG pCO2 POC ABG pO2 ABG pO2 ABG HCO3 ABG O2 Saturation ABG Base Excess ABG Hemoglobin ABG Oxyhemoglobin ABG Sodium ABG Potassium ABG Glucose Oxyhemoglobin Sodium Potassium 5.4 H Carbon Dioxide 12 L BUN 38 H Creatinine 2.5 H D Glucose 29 L* POC Glucose 17 L Calcium 7.6 L Magnesium Ferritin Total Bilirubin AST ALT Alkaline Phosphatase Ammonia Lactate Dehydrogenase 2218 H C-Reactive Protein 8.30 H NT-Pro-B Natriuret Pep Total Protein Albumin Arterial Blood Glucose Arterial Blood Ionized Calcium Coronavirus (PCR) Hepatitis C Antibody Reactive A Crossmatch 03/14/21 03/14/21 03/14/21 08:08 08:59 10:06 WBC RBC Hgb Hct MCV MCH MCHC RDW Plt Count Seg Neuts % (Manual) Lymphocytes % (Manual) Monocytes % (Manual) Nucleated RBC % Seg Neutrophils # Man Lymphocytes # (Manual) Monocytes # (Manual) PT 40.7 H INR 3.85 H APTT D-Dimer ABG pH POC ABG pCO2 POC ABG pO2 ABG pO2 ABG HCO3 ABG O2 Saturation ABG Base Excess ABG Hemoglobin ABG Oxyhemoglobin ABG Sodium ABG Potassium ABG Glucose Oxyhemoglobin Sodium Potassium Carbon Dioxide BUN Creatinine Glucose POC Glucose 11 L 144 H Calcium Magnesium Ferritin Total Bilirubin AST ALT Alkaline Phosphatase Ammonia Lactate Dehydrogenase C-Reactive Protein NT-Pro-B Natriuret Pep Total Protein Albumin Arterial Blood Glucose Arterial Blood Ionized Calcium Coronavirus (PCR) Hepatitis C Antibody Crossmatch 03/14/21 03/15/21 03/15/21 18:15 03:42 04:17 WBC RBC Hgb Hct MCV MCH MCHC RDW Plt Count Seg Neuts % (Manual) Lymphocytes % (Manual) Monocytes % (Manual) Nucleated RBC % Seg Neutrophils # Man Lymphocytes # (Manual) Monocytes # (Manual) PT INR APTT D-Dimer ABG pH 7.088 L* POC ABG pCO2 POC ABG pO2 ABG pO2 90.7 H ABG HCO3 6.2 L ABG O2 Saturation 92.8 L ABG Base Excess -21.8 L ABG Hemoglobin 8.9 L ABG Oxyhemoglobin ABG Sodium ABG Potassium ABG Glucose Oxyhemoglobin 90.8 L Sodium Potassium 6.5 H* D Carbon Dioxide 5 L* D BUN 37 H Creatinine 2.1 H Glucose POC Glucose 124 H Calcium 7.4 L Magnesium Ferritin Total Bilirubin 2.40 H AST 3911 H ALT 663 H Alkaline Phosphatase 139 H Ammonia Lactate Dehydrogenase C-Reactive Protein NT-Pro-B Natriuret Pep Total Protein 5.8 L Albumin 1.8 L Arterial Blood Glucose Arterial Blood Ionized Calcium Coronavirus (PCR) Hepatitis C Antibody Crossmatch 03/15/21 03/15/21 03/15/21 11:17 11:41 13:13 WBC RBC Hgb Hct MCV MCH MCHC RDW Plt Count Seg Neuts % (Manual) Lymphocytes % (Manual) Monocytes % (Manual) Nucleated RBC % Seg Neutrophils # Man Lymphocytes # (Manual) Monocytes # (Manual) PT INR APTT D-Dimer ABG pH POC ABG pCO2 POC ABG pO2 ABG pO2 ABG HCO3 ABG O2 Saturation ABG Base Excess ABG Hemoglobin ABG Oxyhemoglobin ABG Sodium ABG Potassium ABG Glucose Oxyhemoglobin Sodium 153 H D Potassium Carbon Dioxide 14 L D BUN 31 H Creatinine 1.8 H Glucose 262 H POC Glucose 17 L 35 L Calcium 5.8 L* D Magnesium Ferritin Total Bilirubin AST ALT Alkaline Phosphatase Ammonia Lactate Dehydrogenase C-Reactive Protein NT-Pro-B Natriuret Pep Total Protein Albumin Arterial Blood Glucose Arterial Blood Ionized Calcium Coronavirus (PCR) Hepatitis C Antibody Crossmatch 03/15/21 03/15/21 03/16/21 13:53 23:52 06:30 WBC RBC Hgb Hct MCV MCH MCHC RDW Plt Count Seg Neuts % (Manual) Lymphocytes % (Manual) Monocytes % (Manual) Nucleated RBC % Seg Neutrophils # Man Lymphocytes # (Manual) Monocytes # (Manual) PT INR APTT D-Dimer ABG pH POC ABG pCO2 POC ABG pO2 ABG pO2 ABG HCO3 ABG O2 Saturation ABG Base Excess ABG Hemoglobin ABG Oxyhemoglobin ABG Sodium ABG Potassium ABG Glucose Oxyhemoglobin Sodium 146 H Potassium 3.1 L D Carbon Dioxide BUN 27 H Creatinine 1.8 H Glucose 140 H POC Glucose 40 L 142 H Calcium 7.3 L D Magnesium Ferritin Total Bilirubin 3.10 H AST 2233 H ALT 409 H Alkaline Phosphatase 156 H Ammonia Lactate Dehydrogenase C-Reactive Protein NT-Pro-B Natriuret Pep Total Protein 5.2 L Albumin 2.5 L Arterial Blood Glucose Arterial Blood Ionized Calcium Coronavirus (PCR) Hepatitis C Antibody Crossmatch 03/16/21 03/16/21 03/16/21 06:30 06:30 06:30 WBC 15.5 H RBC 2.54 L Hgb 5.5 L* Hct 19.1 L* D MCV 75 L MCH 21 L MCHC 29 L RDW 26.7 H Plt Count 36 L Seg Neuts % (Manual) Lymphocytes % (Manual) Monocytes % (Manual) Nucleated RBC % Seg Neutrophils # Man Lymphocytes # (Manual) Monocytes # (Manual) PT 58.3 H INR 6.13 H* APTT D-Dimer ABG pH POC ABG pCO2 POC ABG pO2 ABG pO2 ABG HCO3 ABG O2 Saturation ABG Base Excess ABG Hemoglobin ABG Oxyhemoglobin ABG Sodium ABG Potassium ABG Glucose Oxyhemoglobin Sodium Potassium Carbon Dioxide BUN Creatinine Glucose POC Glucose Calcium Magnesium 1.60 L Ferritin Total Bilirubin AST ALT Alkaline Phosphatase Ammonia Lactate Dehydrogenase C-Reactive Protein NT-Pro-B Natriuret Pep Total Protein Albumin Arterial Blood Glucose Arterial Blood Ionized Calcium Coronavirus (PCR) Hepatitis C Antibody Crossmatch 03/16/21 03/16/21 03/16/21 08:00 12:10 13:19 WBC RBC Hgb Hct MCV MCH MCHC RDW Plt Count Seg Neuts % (Manual) Lymphocytes % (Manual) Monocytes % (Manual) Nucleated RBC % Seg Neutrophils # Man Lymphocytes # (Manual) Monocytes # (Manual) PT INR APTT D-Dimer ABG pH POC ABG pCO2 POC ABG pO2 ABG pO2 ABG HCO3 ABG O2 Saturation ABG Base Excess ABG Hemoglobin ABG Oxyhemoglobin ABG Sodium ABG Potassium ABG Glucose Oxyhemoglobin Sodium Potassium Carbon Dioxide BUN Creatinine Glucose POC Glucose 59 L 110 H Calcium Magnesium Ferritin Total Bilirubin AST ALT Alkaline Phosphatase Ammonia Lactate Dehydrogenase C-Reactive Protein NT-Pro-B Natriuret Pep Total Protein Albumin Arterial Blood Glucose Arterial Blood Ionized Calcium Coronavirus (PCR) Hepatitis C Antibody Crossmatch See Detail 03/16/21 03/16/21 03/16/21 22:15 22:15 22:15 WBC 16.3 H RBC Hgb 9.7 L D Hct 31.9 L D MCV 79 L MCH 24 L MCHC 30 L RDW 26.0 H Plt Count 27 L Seg Neuts % (Manual) Lymphocytes % (Manual) Monocytes % (Manual) Nucleated RBC % Seg Neutrophils # Man Lymphocytes # (Manual) Monocytes # (Manual) PT 30.3 H INR 2.63 H APTT D-Dimer ABG pH POC ABG pCO2 POC ABG pO2 ABG pO2 ABG HCO3 ABG O2 Saturation ABG Base Excess ABG Hemoglobin ABG Oxyhemoglobin ABG Sodium ABG Potassium ABG Glucose Oxyhemoglobin Sodium Potassium 3.3 L Carbon Dioxide BUN Creatinine Glucose POC Glucose Calcium Magnesium 2.50 H Ferritin Total Bilirubin AST ALT Alkaline Phosphatase Ammonia Lactate Dehydrogenase C-Reactive Protein NT-Pro-B Natriuret Pep Total Protein Albumin Arterial Blood Glucose Arterial Blood Ionized Calcium Coronavirus (PCR) Hepatitis C Antibody Crossmatch 03/17/21 03/17/21 03/17/21 00:21 00:46 02:34 WBC RBC Hgb Hct MCV MCH MCHC RDW Plt Count Seg Neuts % (Manual) Lymphocytes % (Manual) Monocytes % (Manual) Nucleated RBC % Seg Neutrophils # Man Lymphocytes # (Manual) Monocytes # (Manual) PT INR APTT D-Dimer ABG pH 7.614 H POC ABG pCO2 23.4 L POC ABG pO2 70.5 L ABG pO2 ABG HCO3 ABG O2 Saturation ABG Base Excess ABG Hemoglobin 9.9 L ABG Oxyhemoglobin 93.7 L ABG Sodium ABG Potassium 3.0 L ABG Glucose Oxyhemoglobin Sodium Potassium Carbon Dioxide BUN Creatinine Glucose POC Glucose 53 L 55 L Calcium Magnesium Ferritin Total Bilirubin AST ALT Alkaline Phosphatase Ammonia Lactate Dehydrogenase C-Reactive Protein NT-Pro-B Natriuret Pep Total Protein Albumin Arterial Blood Glucose Arterial Blood Ionized Calcium 4.0 L Coronavirus (PCR) Hepatitis C Antibody Crossmatch 03/17/21 03/17/21 03/17/21 04:19 04:19 04:19 WBC 15.0 H RBC Hgb 9.3 L Hct 30.3 L MCV 78 L MCH 24 L MCHC 31 L RDW 26.2 H Plt Count 20 L Seg Neuts % (Manual) Lymphocytes % (Manual) Monocytes % (Manual) Nucleated RBC % Seg Neutrophils # Man Lymphocytes # (Manual) Monocytes # (Manual) PT 29.8 H INR 2.58 H APTT D-Dimer ABG pH POC ABG pCO2 POC ABG pO2 ABG pO2 ABG HCO3 ABG O2 Saturation ABG Base Excess ABG Hemoglobin ABG Oxyhemoglobin ABG Sodium ABG Potassium ABG Glucose Oxyhemoglobin Sodium 147 H Potassium 3.0 L Carbon Dioxide BUN 33 H Creatinine 1.6 H Glucose POC Glucose Calcium 8.0 L Magnesium Ferritin Total Bilirubin 4.30 H AST 1427 H ALT 340 H Alkaline Phosphatase Ammonia Lactate Dehydrogenase C-Reactive Protein NT-Pro-B Natriuret Pep Total Protein 5.4 L Albumin 2.3 L Arterial Blood Glucose Arterial Blood Ionized Calcium Coronavirus (PCR) Hepatitis C Antibody Crossmatch 03/17/21 03/17/21 03/17/21 04:19 13:37 18:25 WBC RBC Hgb 9.7 L Hct 31.6 L MCV MCH MCHC RDW Plt Count Seg Neuts % (Manual) Lymphocytes % (Manual) Monocytes % (Manual) Nucleated RBC % Seg Neutrophils # Man Lymphocytes # (Manual) Monocytes # (Manual) PT INR APTT D-Dimer ABG pH POC ABG pCO2 POC ABG pO2 ABG pO2 ABG HCO3 ABG O2 Saturation ABG Base Excess ABG Hemoglobin ABG Oxyhemoglobin ABG Sodium ABG Potassium ABG Glucose Oxyhemoglobin Sodium Potassium Carbon Dioxide BUN Creatinine Glucose POC Glucose 148 H Calcium Magnesium 2.40 H Ferritin Total Bilirubin AST ALT Alkaline Phosphatase Ammonia Lactate Dehydrogenase C-Reactive Protein NT-Pro-B Natriuret Pep Total Protein Albumin Arterial Blood Glucose Arterial Blood Ionized Calcium Coronavirus (PCR) Hepatitis C Antibody Crossmatch 03/17/21 03/18/21 03/18/21 23:46 04:14 05:09 WBC RBC Hgb Hct MCV MCH MCHC RDW Plt Count Seg Neuts % (Manual) Lymphocytes % (Manual) Monocytes % (Manual) Nucleated RBC % Seg Neutrophils # Man Lymphocytes # (Manual) Monocytes # (Manual) PT INR APTT D-Dimer ABG pH 7.534 H POC ABG pCO2 POC ABG pO2 73.1 L ABG pO2 ABG HCO3 ABG O2 Saturation ABG Base Excess ABG Hemoglobin 10.1 L ABG Oxyhemoglobin 93.6 L ABG Sodium ABG Potassium 3.3 L ABG Glucose 193 H Oxyhemoglobin Sodium Potassium Carbon Dioxide BUN Creatinine Glucose POC Glucose 169 H 167 H Calcium Magnesium Ferritin Total Bilirubin AST ALT Alkaline Phosphatase Ammonia Lactate Dehydrogenase C-Reactive Protein NT-Pro-B Natriuret Pep Total Protein Albumin Arterial Blood Glucose 193 H Arterial Blood Ionized Calcium 4.4 L Coronavirus (PCR) Hepatitis C Antibody Crossmatch 03/18/21 06:20 WBC RBC Hgb Hct MCV MCH MCHC RDW Plt Count Seg Neuts % (Manual) Lymphocytes % (Manual) Monocytes % (Manual) Nucleated RBC % Seg Neutrophils # Man Lymphocytes # (Manual) Monocytes # (Manual) PT INR APTT D-Dimer ABG pH POC ABG pCO2 POC ABG pO2 ABG pO2 ABG HCO3 ABG O2 Saturation ABG Base Excess ABG Hemoglobin ABG Oxyhemoglobin ABG Sodium ABG Potassium ABG Glucose Oxyhemoglobin Sodium 147 H Potassium 3.3 L Carbon Dioxide BUN 42 H Creatinine Glucose 192 H POC Glucose Calcium 8.1 L Magnesium Ferritin Total Bilirubin 5.50 H AST 619 H ALT 248 H Alkaline Phosphatase Ammonia Lactate Dehydrogenase C-Reactive Protein NT-Pro-B Natriuret Pep Total Protein 5.2 L Albumin 2.0 L Arterial Blood Glucose Arterial Blood Ionized Calcium Coronavirus (PCR) Hepatitis C Antibody Crossmatch
[2021-03-18] MEDS ORDERED: MAGNESIUM SULFATE 2 GM/50 ML BAG IV SCH (10:30)
--- NOTE | 2021-03-18 11:51 | Progress Note ---
<CATHYMISSY H. - Last Filed: 03/18/21 17:16> Assessment and Plan Assessment and plan: This is a 65 year old with ESLD 2/2 hepatitis C/EtOH abuse, anemia, recent rectal bleeding, recurrent ascites admitted with COVID-19 pneumonia, acute decompensated liver failure, shock liver, transaminitis, sepsis Assessment and Plan Neuro: Sedated, Acute Hepatic/ Metabolic Encephalopathy -Sedation with fent -RASS goal 0 to -1 -dc today and place on PSV -Avoid delirium -Maintain sleep-wake cycle -No reponse to painful stimui, Pupils not reactive to light -Neuro consulted, appreciate recommendations -Thiamine -lactulose -CT head with chornic changes, no acute events CV: Sinus tachcardia, hypotension - s/p Vasopressor support with levophed, vasopressin, Tejinder-Synephrine ordered if needed -map goal > 60 -Blood pressure monitoring protocol -Consider cardiology consultation if needed Pulm: Acute respiratory failure with hypoxia,h/o tobacco abuse -Intubated 03/12 in the ED with 7.50 ETT at 24 at the [facility] -CCM consulted, appreciate recommendations -A.m. settings: Assist control tidal volume 400, rate 14, PEEP 6, FiO2 40% -See RT notes for titration -PSV after sedation off -A.m. 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, recurrent ascites, rectal bleeding -GI consulted, appreciate recommendations -MELD NA: 22 -Serum ammonia 72 on admission -lactulose -Abdominal ultrasound shows moderate to large volume ascites throughout all 4 quadrants of the abdomen -Avoid hepatotoxins -Trend LFTs -Per GI if signs of bleeding noted; vitamin K -Conservative management -Denied transfer to [place] for liver failure : Acute kidney injury, hypokalemia, hypermagnesemia, refractory acidosis (resolved) -Nephrology consulted,appreciate recommendations -Secondary to acute tubular necrosis per nephrology -s/p NaHCO3 gtt -s/p Kayexalate and calcium gluconate for hyperkalemia x1 on 03/15 -Significant output -HD initiated on 03/15 per nephrology -Albumin as needed -Trend BMP -Repleated potassium and mag -Avoid nephrotoxic medications ID: Sepsis, COVID-19 pneumonia, r/o SBP -Infectious disease consulted, appreciate recommendations -COVID-19 PCR positive -Droplet/isolation precautions -Decadron 6 mg IV (03/13-03/23) -Antibiotic therapy with Rocephin and vancomycin -Per ID not a candidate for Actemra -Holding remdesivir in setting of transaminitis -Trend COVID-19 telemetry markers -Hold prophylactic anticoagulation due to rectal bleed, supratherapeutic INR. -f/u culture data -Monitor fever and wbc curve Heme: Supratherapeutic INR (improving), acute anemia, elevated D-dimer, h/o anemia due to rectal bleed, microcytic anemia, thrombocytopenia -CTA chest negative for pulmonary embolism -Trend INR -s/p vit K and FFP -Monitor for bleeding -Hold chemical anticoagulation -SCD to bilateral lower extremities while in bed -Trend CBC -Transfuse hemoglobin less than 7 -s/p 2 units PRBC -1 unit plts today Endo: Hypoglycemia -s/p Dextrose drip with bicarb -Accu-Cheks every 6 -Hypoglycemic protocol The high probability of a clinically significant, sudden or life threatening deterioration of the [multi] system(s) required my full and direct attention, intervention and personal management. The aggregate critical care time was [90] minutes. This time is in addition to time spent performing reported procedures but includes the following: [x] Data Review and interpretation [x] Patient assessment and monitoring of vital signs [x] Documentation [x] Medication orders and management Disposition Plan: icu Total Time Spent with Patient (Minutes): 90 History Interval history: This is a 65-year-old male with ESLD secondary to cirrhosis from Hep C and EtOH abuse, recurrent ascites, rectal bleeding and anemia who presented to the emergency department 03/12 with shortness of breath, abdominal distention and COVID-19 infection. Patient was admitted to [facility] with the paracentesis and removal of 13 L of fluid and colonoscopy with GI due to intermittent rectal bleeding. Patient's daughter stated that he tested positive for COVID-19 the week prior to admission. In triage patient was found to have SPO2 of 70% on room air, tachypnea and tachycardia. Patient was placed on a BiPAP in the emergency department and hyperglycemia was treated with dextrose. Patient did not tolerate BiPAP as he kept removing it and was desaturating. At this time patient was intubated by the ED physician. CXR showed bilateral pneumonia and right-sided large pleural effusion, abdominal x-ray showed large volume ascites. Lab work showed leukocytosis, anemia, slightly elevated coag studies, mild renal insufficiency and elevated proBNP with elevated COVID-19 inflammatory markers. Patient was given antibiotics and Decadron and admitted to the hospitalist service with consults to pulmonology, GI and infectious disease. Hospital Course: 03/13: Awaiting PCCM, GI, ID input. Ordered CTA chest to rule out PE. Fluids inc reased due to concern for intravascular depletion. 03/14: Worsening hepatic transaminits, hypoglycemia noted. D/w GI and CCM regarding worsening liver function, likely shock liver. Will attempt [place] transfer for hepatology services, call placed. Worsening renal function, consult placed to nephrology. 03/15: This morning decision was made by nephrology to initiate hemodialysis. Femoral Vas-Cath placed. Patient remains on Levophed and vasopressin and bicarbonate drip. Despite bicarbonate drip patient was acidotic on ABG and given additional 2 A of bicarb. Added phenyl epi gtt for HD if needed. I updated the daughter today while obtaining consent. 03/16: Patient had CT head today per neurology, supratherapeutic INR of six and given vitamin K and FFP follow, thrombocytopenia noted, patient is off of vasopressors. Metabolic acidosis resolved therefore bicarb drip discontinued. Hemoglobin 5.5 given 2 units PRBC. Potassium and mag repleted. NG tube to low intermittent suction. FiO2 decreased. serial h/h 03/17: Patient remains off vasopressors, fentanyl drip started on low-dose, vent changes per [facility] and potassium repleted aggressively. GI okay to start tube feeding. LFTs improving. 03/18: Decrease in tidal volume today per [facility], holding sedation as patient is not responding. PSV today. LFTS better, k and mag repleted, TF at goal. SSI to high dose scale. Severe thrombocytopenia and given platelets today. Updated his daughter today regarding status, PSV trial and plts. She inquired about CTH which showed no acute finding but showed chronic changes which were communicated . Hospitalist Physical - Physical exam Narrative exam: General appearance: Present: cachectic - EENT Eyes: Present: scleral icterus. Absent: PERRL ENT: poor dentition - Neck Neck: Present: other (dark spot noted on left eye, lower half. Bilateral eyes noted with cataracts). Absent: masses or JVD, cervical LAD - Respiratory Respiratory effort: normal Respiratory: bilateral: diminished - Cardiovascular Rhythm: regular Heart Sounds: Present: S1 & S2. Absent: systolic murmur, diastolic murmur - Extremities Extremities: no ischemia, pulses intact, pulses symmetrical, No edema, normal temperature Peripheral Pulses: within normal limits - Abdominal General gastrointestinal: soft, distended, hypoactive bowel sounds - Integumentary Integumentary: Present: warm, dry - Psychiatric Psychiatric: other - Neurologic Neurologic: other (pupils not reactive, no response to painful stimuli, weak cough/gag reflex.) - Constitutional Vitals: Temp Pulse Resp BP Pulse Ox 97.5 F L 84 14 130/77 98 03/18/21 08:00 03/18/21 11:00 03/18/21 11:00 03/18/21 11:00 03/18/21 11:00 General appearance: Present: cachectic HEART Score - HEART Score Troponin: Troponin T < 0.010 ng/mL (0.00-0.029) 03/12/21 18:54 Results - Labs CBC & Chem 7: 03/18/21 06:20 03/18/21 06:20 Labs: Laboratory Last Values WBC 15.0 K/mm3 (4.5-11.0) H 03/17/21 04:19 RBC 3.86 M/mm3 (3.65-5.03) 03/17/21 04:19 Hgb 9.7 gm/dl (11.8-15.2) L 03/17/21 13:37 Hct 31.6 % (35.5-45.6) L 03/17/21 13:37 MCV 78 fl (84-94) L 03/17/21 04:19 MCH 24 pg (28-32) L 03/17/21 04:19 MCHC 31 % (32-34) L 03/17/21 04:19 RDW 26.2 % (13.2-15.2) H 03/17/21 04:19 Plt Count 20 K/mm3 (140-440) L 03/17/21 04:19 Add Manual Diff Complete 03/14/21 05:34 Total Counted 100 03/14/21 05:34 Seg Neutrophils % Crossing Tender 03/14/21 05:34 Seg Neuts % (Manual) 72.0 % (40.0-70.0) H 03/14/21 05:34 Band Neutrophils % 16.0 % 03/14/21 05:34 Lymphocytes % (Manual) 5.0 % (13.4-35.0) L 03/14/21 05:34 Reactive Lymphs % (Man) 0 % 03/14/21 05:34 Monocytes % (Manual) 4.0 % (0.0-7.3) 03/14/21 05:34 Eosinophils % (Manual) 0 % (0.0-4.3) 03/14/21 05:34 Basophils % (Manual) 0 % (0.0-1.8) 03/14/21 05:34 Metamyelocytes % 1.0 % 03/14/21 05:34 Myelocytes % 2.0 % 03/14/21 05:34 Promyelocytes % 0 % 03/14/21 05:34 Blast Cells % 0 % 03/14/21 05:34 Nucleated RBC % 7.0 % (0.0-0.9) H 03/14/21 05:34 Seg Neutrophils # Man 12.2 K/mm3 (1.8-7.7) H 03/14/21 05:34 Band Neutrophils # 2.7 K/mm3 03/14/21 05:34 Lymphocytes # (Manual) 0.8 K/mm3 (1.2-5.4) L 03/14/21 05:34 Abs React Lymphs (Man) 0.0 K/mm3 03/14/21 05:34 Monocytes # (Manual) 0.7 K/mm3 (0.0-0.8) 03/14/21 05:34 Eosinophils # (Manual) 0.0 K/mm3 (0.0-0.4) 03/14/21 05:34 Basophils # (Manual) 0.0 K/mm3 (0.0-0.1) 03/14/21 05:34 Metamyelocytes # 0.2 K/mm3 03/14/21 05:34 Myelocytes # 0.3 K/mm3 03/14/21 05:34 Promyelocytes # 0.0 K/mm3 03/14/21 05:34 Blast Cells # 0.0 K/mm3 03/14/21 05:34 Pathologist Review 03/14/21 05:34 WBC Morphology Not Reportable 03/13/21 14:32 Hypersegmented Neuts Not Reportable 03/14/21 05:34 Hyposegmented Neuts Not Reportable 03/14/21 05:34 Hypogranular Neuts Not Reportable 03/14/21 05:34 Smudge Cells Not Reportable 03/14/21 05:34 Toxic Granulation 1+ 03/14/21 05:34 Toxic Vacuolation Not Reportable 03/14/21 05:34 Dohle Bodies Not Reportable 03/14/21 05:34 Pelger-Huet Anomaly Not Reportable 03/14/21 05:34 Saqib Rods Not Reportable 03/14/21 05:34 Platelet Estimate Consistent w auto 03/14/21 05:34 Clumped Platelets Crossing Tender 03/14/21 05:34 Plt Clumps, EDTA Not Reportable 03/14/21 05:34 Large Platelets Few 03/14/21 05:34 Giant Platelets Not Reportable 03/14/21 05:34 Platelet Satelliting Not Reportable 03/14/21 05:34 Plt Morphology Comment Not Reportable 03/14/21 05:34 RBC Morphology Not Reportable 03/14/21 05:34 Dimorphic RBCs Not Reportable 03/14/21 05:34 Polychromasia 1+ 03/14/21 05:34 Hypochromasia 2+ 03/14/21 05:34 Poikilocytosis Not Reportable 03/14/21 05:34 Anisocytosis 2+ 03/14/21 05:34 Microcytosis 1+ 03/14/21 05:34 Macrocytosis Not Reportable 03/14/21 05:34 Spherocytes Not Reportable 03/14/21 05:34 Pappenheimer Bodies Not Reportable 03/14/21 05:34 Sickle Cells Not Reportable 03/14/21 05:34 Target Cells 1+ 03/14/21 05:34 Tear Drop Cells Not Reportable 03/14/21 05:34 Ovalocytes Not Reportable 03/14/21 05:34 Helmet Cells Not Reportable 03/14/21 05:34 Swift-Nittany Bodies Not Reportable 03/14/21 05:34 [place] Rings Not Reportable 03/14/21 05:34 Mooers Cells 1+ 03/14/21 05:34 Bite Cells Not Reportable 03/14/21 05:34 Crenated Cell Not Reportable 03/14/21 05:34 Elliptocytes Not Reportable 03/14/21 05:34 Acanthocytes (Spur) Not Reportable 03/14/21 05:34 Rouleaux Not Reportable 03/14/21 05:34 Hemoglobin C Crystals Not Reportable 03/14/21 05:34 Schistocytes Not Reportable 03/14/21 05:34 Malaria parasites Not Reportable 03/14/21 05:34 Wolf Bodies Not Reportable 03/14/21 05:34 Hem Pathologist Commnt Sent to pathology 03/14/21 05:34 PT 29.8 Sec. (12.2-14.9) H 03/17/21 04:19 INR 2.58 (0.87-1.13) H 03/17/21 04:19 APTT 38.7 Sec. (24.2-36.6) H 03/12/21 18:54 D-Dimer > 16196 ng/mlDDU (0-234) H 03/14/21 05:34 ABG pH 7.534 (7.320-7.450) H 03/18/21 04:14 POC ABG pCO2 38.3 mmHg (32.0-48.0) 03/18/21 04:14 ABG pCO2 21.2 mm Hg 03/15/21 03:42 POC ABG pO2 73.1 mmHg (83-108) L 03/18/21 04:14 ABG pO2 90.7 mm Hg (80.0-90.0) H 03/15/21 03:42 POC ABG HCO3 31.6 03/18/21 04:14 ABG HCO3 6.2 mmol/L (20.0-26.0) L 03/15/21 03:42 ABG O2 Saturation 94.5 (0-100) 03/18/21 04:14 ABG O2 Content 11.6 (0.0-44) 03/15/21 03:42 POC ABG Base Excess 8.4 03/18/21 04:14 ABG Base Excess -21.8 mmol/L (-2.0-3.0) L 03/15/21 03:42 ABG Hemoglobin 10.1 (12.0-17.5) L 03/18/21 04:14 ABG Oxyhemoglobin 93.6 (94-98) L 03/18/21 04:14 ABG Carboxyhemoglobin 1.5 % (0.0-5.0) 03/15/21 03:42 ABG Methemoglobin 0.3 (0.0-1.5) 03/18/21 04:14 ABG Sodium 140.2 mmol/L (136.0-145.0) 03/18/21 04:14 ABG Potassium 3.3 mmol/L (3.40-4.50) L 03/18/21 04:14 ABG Chloride 102.0 mmol/L (98-107) 03/18/21 04:14 ABG Glucose 193 mg/dL (65-95) H 03/18/21 04:14 Oxyhemoglobin 90.8 % (95.0-99.0) L 03/15/21 03:42 Carboxyhemoglobin 0.7 (0.5-1.5) 03/18/21 04:14 FiO2 50 % 03/15/21 03:42 FiO2 % 40.0 03/18/21 04:14 Sodium 147 mmol/L (137-145) H 03/18/21 06:20 Potassium 3.3 mmol/L (3.6-5.0) L 03/18/21 06:20 Chloride 105.5 mmol/L (98-107) 03/18/21 06:20 Carbon Dioxide 29 mmol/L (22-30) 03/18/21 06:20 Anion Gap 16 mmol/L 03/18/21 06:20 BUN 42 mg/dL (9-20) H 03/18/21 06:20 Creatinine 1.1 mg/dL (0.8-1.3) 03/18/21 06:20 Estimated GFR > 60 ml/min 03/18/21 06:20 BUN/Creatinine Ratio 38 % 03/18/21 06:20 Glucose 192 mg/dL (75-100) H 03/18/21 06:20 POC Glucose 167 mg/dL (70-105) H 03/18/21 05:09 Calcium 8.1 mg/dL (8.4-10.2) L 03/18/21 06:20 Phosphorus 3.20 mg/dL (2.5-4.5) 03/16/21 06:30 Magnesium 2.30 mg/dL (1.7-2.3) 03/18/21 06:20 Ferritin 6545.0 ng/mL (30.0-300.0) H 03/14/21 05:34 Total Bilirubin 5.50 mg/dL (0.1-1.2) H 03/18/21 06:20 AST 619 units/L (5-40) H 03/18/21 06:20 ALT 248 units/L (7-56) H 03/18/21 06:20 Alkaline Phosphatase 122 units/L (35-129) 03/18/21 06:20 Ammonia 72.0 umol/L (25-60) H 03/12/21 18:54 Lactate Dehydrogenase 2218 units/L (91-180) H 03/14/21 07:18 Troponin T < 0.010 ng/mL (0.00-0.029) 03/12/21 18:54 C-Reactive Protein 8.30 mg/dL (0.00-1.30) H 03/14/21 07:18 NT-Pro-B Natriuret Pep 1838 pg/mL (0-900) H 03/12/21 18:54 Total Protein 5.2 g/dL (6.3-8.2) L 03/18/21 06:20 Albumin 2.0 g/dL (3.9-5) L 03/18/21 06:20 Albumin/Globulin Ratio 0.6 % 03/18/21 06:20 Procalcitonin 8.67 ng/mL (<0.15) 03/12/21 19:04 Arterial Blood Glucose 193 mg/dL (65-95) H 03/18/21 04:14 Arterial Blood Ionized Calcium 4.4 mg/dL (4.6-5.3) L 03/18/21 04:14 Random Vancomycin 5.6 ug/mL (0-40.0) 03/16/21 06:30 Coronavirus (PCR) Positive (Negative) A 03/13/21 Unknown Hepatitis A IgM Ab Non-reactive (NonReactive) 03/14/21 05:34 Hep Bs Antigen Nonreactive (Negative) 03/14/21 05:34 Hep B Core IgM Ab Non-reactive (NonReactive) 03/14/21 05:34 Hepatitis C Antibody Reactive (NonReactive) A 03/14/21 05:34 Blood Type B POSITIVE 03/16/21 08:00 Antibody Screen Negative 03/16/21 08:00 Crossmatch See Detail 03/16/21 08:00 Microbiology: Microbiology 03/12/21 21:07 Peripheral/Venous Blood Culture - Final NO GROWTH AFTER 5 DAYS 03/12/21 21:00 Peripheral/Venous Blood Culture - Final NO GROWTH AFTER 5 DAYS [place]/IV: Voiding Method Indwelling Catheter Active Medications - Current Medications Current Medications: Generic Name Dose Route Start Last Admin Trade Name Freq PRN Reason Stop Dose Admin Albuterol 2.5 mg 03/12/21 21:29 Albuterol 2.5 Mg/3 Ml Nebu IH Q4HRT PRN Shortness Of Breath Lipase/Protease/Amylase 1 each 03/17/21 12:00 Lipase 10,500/Protease 25,000/Amylase 43,750 (Units) Dr Marrero FEEDTUBE PRN PRN For Clogged Feeding Tube Dexamethasone 6 mg 03/13/21 10:00 03/18/21 09:00 Dexamethasone 4 Mg/Ml Vial IV 03/22/21 10:01 6 mg DAILY STEPHEN Administration Dextrose 0 ml 03/15/21 10:00 03/17/21 00:48 Dextrose 50% In Water (25gm) 50 Ml Syringe IV 20 ml Q30MIN PRN Administration Hypoglycemia Protocol Fentanyl 50 mcg 03/13/21 16:03 03/17/21 11:43 Fentanyl 100 Mcg/2 Ml Inj IV 50 mcg Q10MIN PRN Administration ANALGESIA Ferrous Sulfate 300 mg 03/13/21 10:00 03/18/21 09:00 Ferrous Sulfate 300 Mg (60mg Elemental Iron) / 5 Ml Oral Liqd PO 300 mg BID STEPHEN Administration Folic Acid 1 mg 03/13/21 10:00 03/18/21 09:00 Folic Acid 1 Mg Tab PO 1 mg QDAY STEPHEN Administration Hydrophilic Ointment 1 applic 03/12/21 20:02 Lip Therapy Vaseline TP Q2HR PRN Dry Lips Ceftriaxone Sodium 2 gm in 100 mls @ 200 mls/hr 03/13/21 10:00 03/18/21 09:01 Rocephin/Ns 2 Gm/100 Ml IV 200 mls/hr Q24HR STEPHEN Administration Protocol Fentanyl Citrate 2,000 mcg in 100 mls @ 3.402 mls/hr 03/13/21 17:00 03/18/21 10:30 Fentanyl Drip Premix IV 0 mcg/kg/hr TITR STEPHEN 0 mls/hr Titration Protocol 1 MCG/KG/HR NORepinephrine/NS 8 MG-250 ML 8 mg in 250 mls @ 3.75 mls/hr 03/13/21 21:00 03/16/21 18:23 Norepinephrine/Ns 8 Mg-250 Ml (Double Conc) IV 0 mcg/min TITRATE STEPHEN 0 mls/hr Titration Protocol 2 MCG/MIN Vasopressin 20 unit/ Sodium 101 mls @ 9.09 mls/hr 03/14/21 14:00 03/15/21 23:55 Chloride IV 0 units/min TITR STEPHEN 0 mls/hr Titration Protocol 0.03 UNITS/MIN Sodium Chloride 100 mls @ 999 mls/hr 03/15/21 10:00 Nacl 0.9% IV VICKEY PRN Hypotension Phenylephrine HCl 100 mg/ 100 mls @ 3 mls/hr 03/15/21 14:00 Sodium Chloride IV TITR STEPHEN Protocol 50 MCG/MIN Potassium Chloride/Dextrose/Sod Cl 20 meq in 1,000 mls @ 100 mls/hr 03/17/21 10:00 03/18/21 05:56 D5w/0.45% Nacl/Kcl 20 Meq IV 100 mls/hr DIRECT STEPHEN Administration Magnesium Sulfate 2 gm in 50 mls @ 25 mls/hr 03/18/21 10:30 03/18/21 11:35 Magnesium Sulfate 2gm/50ml IV 03/18/21 14:30 25 mls/hr ONCE@1030 STEPHEN Administration Lactulose 20 gm 03/18/21 14:00 Lactulose 20 Gm/30 Ml Oral Liqd PO Q4HR TSEPHEN Lansoprazole 30 mg 03/18/21 10:00 03/18/21 09:00 Lansoprazole 30 Mg Solutab FEEDTUBE 30 mg QDAY STEPHEN Administration Multi-Ingred Cream/Lotion/Oil/Oint 1 applic 03/12/21 20:02 Mineral Oil/Petrolatum, White Ophth Oint 3.5 Gm OU Q4HR PRN Dry Eye(s) Ondansetron HCl 4 mg 03/12/21 21:29 Ondansetron 4 Mg/2 Ml Inj IV Q8H PRN Nausea And Vomiting Potassium Chloride 40 meq 03/18/21 08:00 03/18/21 08:32 Potassium Chloride 20 Meq Packet FEEDTUBE 03/18/21 12:00 40 meq ONCE@0800 STEPHEN Administration Senna/Docusate Sodium 1 tab 03/12/21 22:00 03/18/21 09:01 Sennosides/Docusate Sodium 8.6/50 Mg Tab FEEDTUBE Not Given BID STEPHEN Simple Syrup 15 ml 03/17/21 12:00 Simple Syrup 15 Ml FEEDTUBE PRN PRN Hypoglycemia Simple Syrup 30 ml 03/17/21 12:00 Simple Syrup 15 Ml FEEDTUBE PRN PRN Hypoglycemia Sodium Bicarbonate 325 mg 03/17/21 12:00 Sodium Bicarbonate 325 Mg Tab FEEDTUBE PRN PRN For Clogged Feeding Tube Sodium Chloride 10 ml 03/12/21 22:00 03/18/21 09:01 Sodium Chloride 0.9% 10 Ml Flush Syringe IV 10 ml BID STEPHEN Administration Sodium Chloride 10 ml 03/12/21 21:29 Sodium Chloride 0.9% 10 Ml Flush Syringe IV PRN PRN LINE FLUSH Thiamine HCl 100 mg 03/13/21 10:00 03/18/21 09:00 Thiamine 100 Mg Tab PO 100 mg QDAY STEPHEN Administration Nutrition/Malnutrition Assess - Dietary Evaluation Nutrition/Malnutrition Findings: Nutrition Notes Start: 03/13/21 17:20 Freq: Status: Active Protocol: Document 03/17/21 11:43 THOR (Rec: 03/17/21 12:00 THOR [id number]) Nutrition Notes Initial or Follow up Assessment Current Diagnosis Acute Kidney Injury, Respiratory Failure Other Pertinent Diagnosis COVID-19 pneu, ESLD, Anemia, Ascites, Hep C Current Diet TF - Vital AF 1.2 at 56ml/hr Labs/Tests Na 147 K 3 BUN 33 Cr 1.6 Mg 2.4 Elevated LFTs Pertinent Medications Decadron, Ferrous sulfate, 20mEq KCl x 1 dose, D5 1/2NS + 20mEq KCl at 100ml/hr, Phenylephrine gtt Height 5 ft 11 in Weight 61.2 kg Welcome Body Weight (kg) 78.18 BMI 18.8 Weight Status Underweight Subjective/Other Information RD consulted for TF. Pt remains on vent support. Per nephrology, pt s/p HD for correction of hyperkalemia; will continue to f/u for necessity of HD. Pt will not receive HD today. Burn Absent Trauma Absent Minimum of two criteria No #1 Nutrition Diagnosis Inadequate oral intake Diagnosis Progress(for reassessment Continues documentation) Is patient on ventilator? Yes Is Patient Ambulatory and/or Out of Bed No REE-([facility]-confined to bed) 1708.452 Kcal/Kg value to use for calculation 30 Approximate Energy Requirements Using 1836 kcal/Kg Calculation Used for Recommendations Kcal/kg Additional Notes Pro needs 1.2-2g/k-122g/ day Fluid needs 1ml/kcal Nutrition Intervention Nutrition Support: Vital AF 1.2 at 60ml/hr with 100ml water flush q4h. Kcal 1,728 Protein (gm) 108 Carbohydrates (gm) 159 Fat (gm) 78 Fluid (mL) 1,168 Fiber (gm) 7 Goal #1 TF tolerance Goal #2 TF to meet 80-100% energy and pro needs Goal #3 Wt maintenance and/or gain Follow-Up By: 03/19/21 Additional Comments F/U: TF tolerance, vent status , renal function <JOSIE HESS - Last Filed: 03/24/21 13:01> Assessment and Plan Assessment and plan: I saw and evaluated the patient. Discussed with the nurse practitioner and agree with their findings and plan as documented in this note. Hospitalist Physical - Constitutional Vitals: Temp Pulse Resp BP Pulse Ox 97.4 F L 130 H 0 L 52/38 0 L 03/22/21 23:42 03/23/21 01:45 03/23/21 02:01 03/23/21 02:01 03/23/21 02:10 HEART Score - HEART Score Troponin: Troponin T < 0.010 ng/mL (0.00-0.029) 03/12/21 18:54 Results - Labs CBC & Chem 7: 03/22/21 04:00 03/22/21 23:20 Labs: Laboratory Last Values WBC 18.8 K/mm3 (4.5-11.0) H 03/22/21 04:00 RBC 3.97 M/mm3 (3.65-5.03) 03/22/21 04:00 Hgb 9.8 gm/dl (11.8-15.2) L 03/22/21 04:00 Hct 34.0 % (35.5-45.6) L 03/22/21 04:00 MCV 86 fl (84-94) 03/22/21 04:00 MCH 25 pg (28-32) L 03/22/21 04:00 MCHC 29 % (32-34) L 03/22/21 04:00 RDW 29.6 % (13.2-15.2) H 03/22/21 04:00 Plt Count 26 K/mm3 (140-440) L D 03/22/21 04:00 Add Manual Diff Complete 03/14/21 05:34 Total Counted 100 03/14/21 05:34 Seg Neutrophils % Crossing Tender 03/14/21 05:34 Seg Neuts % (Manual) 72.0 % (40.0-70.0) H 03/14/21 05:34 Band Neutrophils % 16.0 % 03/14/21 05:34 Lymphocytes % (Manual) 5.0 % (13.4-35.0) L 03/14/21 05:34 Reactive Lymphs % (Man) 0 % 03/14/21 05:34 Monocytes % (Manual) 4.0 % (0.0-7.3) 03/14/21 05:34 Eosinophils % (Manual) 0 % (0.0-4.3) 03/14/21 05:34 Basophils % (Manual) 0 % (0.0-1.8) 03/14/21 05:34 Metamyelocytes % 1.0 % 03/14/21 05:34 Myelocytes % 2.0 % 03/14/21 05:34 Promyelocytes % 0 % 03/14/21 05:34 Blast Cells % 0 % 03/14/21 05:34 Nucleated RBC % 7.0 % (0.0-0.9) H 03/14/21 05:34 Seg Neutrophils # Man 12.2 K/mm3 (1.8-7.7) H 03/14/21 05:34 Band Neutrophils # 2.7 K/mm3 03/14/21 05:34 Lymphocytes # (Manual) 0.8 K/mm3 (1.2-5.4) L 03/14/21 05:34 Abs React Lymphs (Man) 0.0 K/mm3 03/14/21 05:34 Monocytes # (Manual) 0.7 K/mm3 (0.0-0.8) 03/14/21 05:34 Eosinophils # (Manual) 0.0 K/mm3 (0.0-0.4) 03/14/21 05:34 Basophils # (Manual) 0.0 K/mm3 (0.0-0.1) 03/14/21 05:34 Metamyelocytes # 0.2 K/mm3 03/14/21 05:34 Myelocytes # 0.3 K/mm3 03/14/21 05:34 Promyelocytes # 0.0 K/mm3 03/14/21 05:34 Blast Cells # 0.0 K/mm3 03/14/21 05:34 Pathologist Review 03/14/21 05:34 WBC Morphology Not Reportable 03/14/21 05:34 Hypersegmented Neuts Not Reportable 03/14/21 05:34 Hyposegmented Neuts Not Reportable 03/14/21 05:34 Hypogranular Neuts Not Reportable 03/14/21 05:34 Smudge Cells Not Reportable 03/14/21 05:34 Toxic Granulation 1+ 03/14/21 05:34 Toxic Vacuolation Not Reportable 03/14/21 05:34 Dohle Bodies Not Reportable 03/14/21 05:34 Pelger-Huet Anomaly Not Reportable 03/14/21 05:34 Saqib Rods Not Reportable 03/14/21 05:34 Platelet Estimate Consistent w auto 03/14/21 05:34 Clumped Platelets Crossing Tender 03/14/21 05:34 Plt Clumps, EDTA Not Reportable 03/14/21 05:34 Large Platelets Few 03/14/21 05:34 Giant Platelets Not Reportable 03/14/21 05:34 Platelet Satelliting Not Reportable 03/14/21 05:34 Plt Morphology Comment Not Reportable 03/14/21 05:34 RBC Morphology Not Reportable 03/14/21 05:34 Dimorphic RBCs Not Reportable 03/14/21 05:34 Polychromasia 1+ 03/14/21 05:34 Hypochromasia 2+ 03/14/21 05:34 Poikilocytosis Not Reportable 03/14/21 05:34 Anisocytosis 2+ 03/14/21 05:34 Microcytosis 1+ 03/14/21 05:34 Macrocytosis Not Reportable 03/14/21 05:34 Spherocytes Not Reportable 03/14/21 05:34 Pappenheimer Bodies Not Reportable 03/14/21 05:34 Sickle Cells Not Reportable 03/14/21 05:34 Target Cells 1+ 03/14/21 05:34 Tear Drop Cells Not Reportable 03/14/21 05:34 Ovalocytes Not Reportable 03/14/21 05:34 Helmet Cells Not Reportable 03/14/21 05:34 Swift-Nittany Bodies Not Reportable 03/14/21 05:34 [place] Rings Not Reportable 03/14/21 05:34 [place] Cells 1+ 03/14/21 05:34 Bite Cells Not Reportable 03/14/21 05:34 Crenated Cell Not Reportable 03/14/21 05:34 Elliptocytes Not Reportable 03/14/21 05:34 Acanthocytes (Spur) Not Reportable 03/14/21 05:34 Rouleaux Not Reportable 03/14/21 05:34 Hemoglobin C Crystals Not Reportable 03/14/21 05:34 Schistocytes Not Reportable 03/14/21 05:34 Malaria parasites Not Reportable 03/14/21 05:34 Wolf Bodies Not Reportable 03/14/21 05:34 Hem Pathologist Commnt Sent to pathology 03/14/21 05:34 PT 23.6 Sec. (12.2-14.9) H 03/19/21 04:00 INR 1.91 (0.87-1.13) H 03/19/21 04:00 APTT 38.7 Sec. (24.2-36.6) H 03/12/21 18:54 D-Dimer > 86499 ng/mlDDU (0-234) H 03/21/21 Unknown ABG pH 7.093 pH Units (7.350-7.450) L* 03/23/21 01:40 POC ABG pCO2 38.3 mmHg (32.0-48.0) 03/18/21 04:14 ABG pCO2 71.1 mm Hg 03/23/21 01:40 POC ABG pO2 73.1 mmHg (83-108) L 03/18/21 04:14 ABG pO2 28.4 mm Hg (80.0-90.0) L* 03/23/21 01:40 POC ABG HCO3 31.6 03/18/21 04:14 ABG HCO3 21.2 mmol/L (20.0-26.0) 03/23/21 01:40 ABG O2 Saturation 26.3 % (95.0-99.0) L 03/23/21 01:40 ABG O2 Content 3.5 (0.0-44) 03/23/21 01:40 POC ABG Base Excess 8.4 03/18/21 04:14 ABG Base Excess -8.8 mmol/L (-2.0-3.0) L 03/23/21 01:40 ABG Hemoglobin 9.6 gm/dl (14.0-18.0) L 03/23/21 01:40 ABG Oxyhemoglobin 93.6 (94-98) L 03/18/21 04:14 ABG Carboxyhemoglobin 1.4 % (0.0-5.0) 03/23/21 01:40 ABG Methemoglobin 0.9 % (0.0-1.5) 03/23/21 01:40 ABG Sodium 140.2 mmol/L (136.0-145.0) 03/18/21 04:14 ABG Potassium 3.3 mmol/L (3.40-4.50) L 03/18/21 04:14 ABG Chloride 102.0 mmol/L (98-107) 03/18/21 04:14 ABG Glucose 193 mg/dL (65-95) H 03/18/21 04:14 Oxyhemoglobin 25.7 % (95.0-99.0) L 03/23/21 01:40 Carboxyhemoglobin 0.7 (0.5-1.5) 03/18/21 04:14 FiO2 100 % 03/23/21 01:40 FiO2 % 40.0 03/18/21 04:14 Sodium 145 mmol/L (137-145) 03/22/21 04:00 Potassium 5.1 mmol/L (3.6-5.0) H 03/22/21 04:00 Chloride 104.8 mmol/L (98-107) 03/22/21 04:00 Carbon Dioxide 18 mmol/L (22-30) L 03/22/21 04:00 Anion Gap 27 mmol/L 03/22/21 04:00 BUN 73 mg/dL (9-20) H 03/22/21 04:00 Creatinine 1.2 mg/dL (0.8-1.3) D 03/22/21 04:00 Estimated GFR > 60 ml/min 03/22/21 04:00 BUN/Creatinine Ratio 61 % 03/22/21 04:00 Glucose 150 mg/dL (75-100) H 03/22/21 23:20 POC Glucose 120 mg/dL (70-105) H 03/23/21 01:33 Calcium 9.2 mg/dL (8.4-10.2) 03/22/21 04:00 Phosphorus 3.50 mg/dL (2.5-4.5) 03/20/21 05:48 Magnesium 2.20 mg/dL (1.7-2.3) 03/20/21 05:48 Ferritin 443.8 ng/mL (30.0-300.0) H 03/21/21 Unknown Total Bilirubin 14.00 mg/dL (0.1-1.2) H 03/22/21 04:00 AST 146 units/L (5-40) H 03/22/21 04:00 ALT 132 units/L (7-56) H 03/22/21 04:00 Alkaline Phosphatase 108 units/L (35-129) 03/22/21 04:00 Ammonia 27.0 umol/L (25-60) 03/20/21 05:48 Lactate Dehydrogenase 693 units/L (91-180) H 03/21/21 Unknown Troponin T < 0.010 ng/mL (0.00-0.029) 03/12/21 18:54 C-Reactive Protein 5.00 mg/dL (0.00-1.30) H 03/21/21 Unknown NT-Pro-B Natriuret Pep 1838 pg/mL (0-900) H 03/12/21 18:54 Total Protein 5.2 g/dL (6.3-8.2) L 03/22/21 04:00 Albumin 1.8 g/dL (3.9-5) L 03/22/21 04:00 Albumin/Globulin Ratio 0.5 % 03/22/21 04:00 Procalcitonin 11.74 ng/mL (<0.15) 03/21/21 10:46 Arterial Blood Glucose 193 mg/dL (65-95) H 03/18/21 04:14 Arterial Blood Ionized Calcium 4.4 mg/dL (4.6-5.3) L 03/18/21 04:14 Urine Color Sabrina (Yellow) 03/21/21 10:20 Urine Turbidity Cloudy (Clear) 03/21/21 10:20 Urine pH 5.0 (5.0-7.0) 03/21/21 10:20 Ur Specific [place] 1.019 (1.003-1.030) 03/21/21 10:20 Urine Protein 30 mg/dl mg/dL (Negative) 03/21/21 10:20 Urine Glucose (UA) Neg mg/dL (Negative) 03/21/21 10:20 Urine Ketones Neg mg/dL (Negative) 03/21/21 10:20 Urine Blood Mod (Negative) 03/21/21 10:20 Urine Nitrite Neg (Negative) 03/21/21 10:20 Urine Bilirubin Sm (Negative) 03/21/21 10:20 Urine Ictotest Positive (Negative) 03/21/21 10:20 Urine Urobilinogen 2.0 mg/dL (<2.0) 03/21/21 10:20 Ur Leukocyte Esterase Neg (Negative) 03/21/21 10:20 Urine WBC (Auto) 24.0 /HPF (0.0-6.0) H 03/21/21 10:20 Urine RBC (Auto) 8.0 /HPF (0.0-6.0) 03/21/21 10:20 U Epithel Cells (Auto) 3.0 /HPF (0-13.0) 03/21/21 10:20 Hyaline Casts 1 /LPF 03/21/21 10:20 Granular Casts 9 /LPF 03/21/21 10:20 Urine Mucus Few /HPF 03/21/21 10:20 Fluid Type Paracentesis 03/21/21 13:30 Fluid Color Yellow 03/21/21 13:30 Fluid Appearance Hazy 03/21/21 13:30 Fluid WBC 15 /mm3 03/21/21 13:30 Fluid RBC 221 /mm3 03/21/21 13:30 Fluid Seg Neutrophils 50.0 % 03/21/21 13:30 Fluid Lymphocytes 35.0 % 03/21/21 13:30 Fluid Monocytes 15.0 % 03/21/21 13:30 Random Vancomycin 5.6 ug/mL (0-40.0) 03/16/21 06:30 Coronavirus (PCR) Positive (Negative) A 03/13/21 Unknown Hepatitis A IgM Ab Non-reactive (NonReactive) 03/14/21 05:34 Hep Bs Antigen Nonreactive (Negative) 03/14/21 05:34 Hep B Core IgM Ab Non-reactive (NonReactive) 03/14/21 05:34 Hepatitis C Antibody Reactive (NonReactive) A 03/14/21 05:34 Blood Type B POSITIVE 03/16/21 08:00 Antibody Screen Negative 03/16/21 08:00 Crossmatch See Detail 03/16/21 08:00 Microbiology: Microbiology 03/21/21 13:30 Ascities Fluid Body Fluid Culture - Preliminary 03/21/21 10:46 Peripheral/Venous Blood Culture - Preliminary NO GROWTH AFTER 72 HOURS 03/21/21 10:46 Peripheral/Venous Blood Culture - Preliminary NO GROWTH AFTER 72 HOURS 03/21/21 13:40 Tracheal Aspirate Sputum Culture - Final 03/21/21 10:20 Urine,Clean Catch Urine Culture - Final NO GROWTH AFTER 48 HOURS [place]/IV: Voiding Method Indwelling Catheter Nutrition/Malnutrition Assess - Dietary Evaluation Nutrition/Malnutrition Findings: Nutrition Notes Start: 03/13/21 17:20 Freq: Status: Discharge Protocol: Document 03/21/21 14:19 GERALD (Rec: 03/21/21 14:47 GERALD [id number]) Nutrition Notes Initial or Follow up Brief Note Current Diet TF remains on hold. Height 5 ft 11 in Weight 61.2 kg Welcome Body Weight (kg) 78.18 BMI 18.8 Weight change and time frame No body weight change reported . Weight Status Underweight Subjective/Other Information RD consult on TF resume and tolerance. TF remains on hold. Pt continues on Mechanical Ventilation. As per MD, discussion with family regarding Trach and PEG due to mental satus and poor prognosis. TF resumed 9:30 03/20 @ 20 ml/ hr. TF stopped 02:50 03/21, stomach distended and labored breathing, 250 ml residuals. Incident with necrotic fingers on 03/20. Percent of energy/protein needs met: TF remains on hold. Nutrition Intervention Follow-Up By: 03/23/21 Additional Comments F/U: TF restart/tolerance
[2021-03-18 12:13] LABS: Platelet Count 13 K/mm3 (140-440)
[2021-03-18] MEDS ORDERED: SODIUM CHLORIDE 0.9% 500 ML 500 ML IV ONE (13:00)
--- NOTE | 2021-03-18 13:59 | Gastroenterology Progress Note ---
Assessment and Plan - Patient Problems (1) Abnormal liver enzymes Current Visit: Yes Status: Acute Plan to address problem: - Likely acute ischemic injury from sepsis more than EtOH/Hep C infection. - Underlying cirrhosis with ascites (paracentesis last month). - Hold diuretics for now; continue protonix. - MVI therapy, and re-start nutrition with tube feeds. - Improving as clinically more stable; no further recs; will sign off; please call if needed. (2) Acute blood loss anemia Current Visit: Yes Status: Acute Plan to address problem: - EGD/flex last month showed duodenal ulcers with gastritis, and brown stool/poor prep. - Continue PPI therapy, and avoid NSAIDs. - OK to continue steroids for now given COVID/sepsis. - OK to anticoagulate with caution given high risk of ischemic events if platelets improve; monitor stools closely for melena, but hematocrit much improved after PRBC. (3) Ascites due to alcoholic cirrhosis Current Visit: Yes Status: Acute (4) Hepatitis C antibody positive in blood Current Visit: Yes Status: Acute Subjective Date of service: 03/18/21 Principal diagnosis: Liver, anemia Interval history: The patient has had no melena, despite a plt count of 13 today. He is stable on the vent without severe fevers, and tolerating his tube feeds. Objective - Constitutional Vitals: Temp Pulse Resp BP Pulse Ox 97.5 F L 84 14 130/77 98 03/18/21 08:00 03/18/21 11:00 03/18/21 11:00 03/18/21 11:00 03/18/21 11:00 General appearance: no acute distress - Respiratory Respiratory effort: normal Respiratory: bilateral: CTA (Vent) - Cardiovascular Rhythm: regular Heart Sounds: Present: S1 & S2 - Gastrointestinal General gastrointestinal: Present: soft, non-tender, non-distended - Labs CBC & Chem 7: 03/18/21 06:20 03/18/21 06:20 Labs: Laboratory Results - last 24 hr 03/17/21 03/17/21 03/17/21 13:37 18:25 23:46 WBC RBC Hgb 9.7 L Hct 31.6 L MCV MCH MCHC RDW Plt Count ABG pH POC ABG pCO2 POC ABG pO2 POC ABG HCO3 ABG O2 Saturation POC ABG Base Excess ABG Hemoglobin ABG Oxyhemoglobin ABG Methemoglobin ABG Sodium ABG Potassium ABG Chloride ABG Glucose Carboxyhemoglobin FiO2 % Sodium Potassium Chloride Carbon Dioxide Anion Gap BUN Creatinine Estimated GFR BUN/Creatinine Ratio Glucose POC Glucose 148 H 169 H Calcium Magnesium Total Bilirubin AST ALT Alkaline Phosphatase Total Protein Albumin Albumin/Globulin Ratio Arterial Blood Glucose Arterial Blood Ionized Calcium 03/18/21 03/18/21 03/18/21 04:14 05:09 06:20 WBC RBC Hgb Hct MCV MCH MCHC RDW Plt Count ABG pH 7.534 H POC ABG pCO2 38.3 POC ABG pO2 73.1 L POC ABG HCO3 31.6 ABG O2 Saturation 94.5 POC ABG Base Excess 8.4 ABG Hemoglobin 10.1 L ABG Oxyhemoglobin 93.6 L ABG Methemoglobin 0.3 ABG Sodium 140.2 ABG Potassium 3.3 L ABG Chloride 102.0 ABG Glucose 193 H Carboxyhemoglobin 0.7 FiO2 % 40.0 Sodium 147 H Potassium 3.3 L Chloride 105.5 Carbon Dioxide 29 Anion Gap 16 BUN 42 H Creatinine 1.1 Estimated GFR > 60 BUN/Creatinine Ratio 38 Glucose 192 H POC Glucose 167 H Calcium 8.1 L Magnesium Total Bilirubin 5.50 H AST 619 H ALT 248 H Alkaline Phosphatase 122 Total Protein 5.2 L Albumin 2.0 L Albumin/Globulin Ratio 0.6 Arterial Blood Glucose 193 H Arterial Blood Ionized Calcium 4.4 L 03/18/21 03/18/21 03/18/21 06:20 06:20 11:49 WBC 13.5 H RBC 3.87 Hgb 9.3 L Hct 30.7 L MCV 79 L MCH 24 L MCHC 30 L RDW 27.0 H Plt Count 13 L* ABG pH POC ABG pCO2 POC ABG pO2 POC ABG HCO3 ABG O2 Saturation POC ABG Base Excess ABG Hemoglobin ABG Oxyhemoglobin ABG Methemoglobin ABG Sodium ABG Potassium ABG Chloride ABG Glucose Carboxyhemoglobin FiO2 % Sodium Potassium Chloride Carbon Dioxide Anion Gap BUN Creatinine Estimated GFR BUN/Creatinine Ratio Glucose POC Glucose 191 H Calcium Magnesium 2.30 Total Bilirubin AST ALT Alkaline Phosphatase Total Protein Albumin Albumin/Globulin Ratio Arterial Blood Glucose Arterial Blood Ionized Calcium
[2021-03-18] MEDS: fentaNYL DRIP Premix 2,000 MCG/100 ML BAG IV SCH (22:09)
[2021-03-19] MEDS: LACTULOSE 20 GM/30 ML ORAL LIQD PO SCH ×6 (02:43→21:24)
[2021-03-19] MEDS: D5W/0.45% NACL/KCL 20 MEQ 20 MEQ/1,000 ML BAG IV SCH ×3 (02:44→23:26)
--- NOTE | 2021-03-19 04:22 | XRay Report ---
CHEST 1 VIEW 03/19/2021 2:55 AM INDICATION / CLINICAL INFORMATION: follow up respiratory failure. COMPARISON: 03/18/21 FINDINGS: SUPPORT DEVICES: Stable, satisfactory device positioning. HEART / MEDIASTINUM: Stable. LUNGS / PLEURA: Bilateral pulmonary opacities are unchanged. No pneumothorax. ADDITIONAL FINDINGS: No significant additional findings. IMPRESSION: 1. No significant change. Signer Name: Damion Mckinney MD Signed: 03/19/2021 4:17 AM Workstation Name: [id number]
[2021-03-19 06:28] LABS: Mean Corpuscular HGB Conc 30 % (32-34); Mean Corpuscular Volume 80 fl (84-94); Red Blood Count 4.09 M/mm3 (3.65-5.03)
[2021-03-19 06:33] LABS: Alanine Aminotransferase 221 units/L (7-56); Albumin 2.1 g/dL (3.9-5); BUN/Creatinine Ratio 70; Blood Urea Nitrogen 42 mg/dL (9-20); Calcium 8.3 mg/dL (8.4-10.2); Hemolysis Index 7
[2021-03-19 06:34] LABS: C-Reactive Protein 4.3 mg/dL (0.00-1.30)
[2021-03-19 06:38] LABS: Hematocrit 32.8 % (35.5-45.6); Hemoglobin 9.9 gm/dl (11.8-15.2)
[2021-03-19 06:39] LABS: INR 1.91 (0.87-1.13); Red Cell Distribution Width 27.6 % (13.2-15.2)
[2021-03-19 07:47] LABS: Platelet Count 24 K/mm3 (140-440)
[2021-03-19] MEDS: INSULIN LISPRO 100 UNIT/ML SUB-Q SCH ×4 (09:04→23:34)
[2021-03-19] MEDS: FERROUS SULFATE 300 MG (60MG Elemental Iron) / 5 mL ORAL LIQD PO SCH ×2 (09:05→21:24)
[2021-03-19] MEDS: dexAMETHasone 4 MG/ML VIAL IV SCH (09:05)
[2021-03-19] MEDS: SENNOSIDES/DOCUSATE SODIUM 8.6/50 MG TAB FEEDTUBE SCH ×2 (09:05→21:24)
[2021-03-19] MEDS: cefTRIAXone/NS 2 GM/100 ML 2 GM/100 ML BAG IV SCH (09:05)
[2021-03-19] MEDS: MULTIVITAMIN / MINERAL ORAL LIQUID 15 ML PO SCH (09:05)
[2021-03-19] MEDS: THIAMINE 100 MG TAB PO SCH (09:06)
[2021-03-19] MEDS: LANSOPRAZOLE 30 MG SOLUTAB FEEDTUBE SCH (09:06)
[2021-03-19] MEDS: FOLIC ACID 1 MG TAB PO SCH (09:06)
--- NOTE | 2021-03-19 09:29 | Progress Note ---
Assessment and Plan 65 y/o male with acute respiratory failure most likely secondary to COVID plus right sided effusion secondary to large volume ascities from liver cirrhosis. 03/19/21: spoke with nursing and having high residuals. Will give a one time dose of reglan this morning. If persists, check KUB. Tolerating PSV this am. mental status is unfortunately unchanged. If strong cough, could consider extubation. Got platelets yesterday with improvement. No overt evidence of bleeding. 03/18/21: Dropped tidal volume to 380 this am. Will ask nursing to discontinue fent and place patient on PSV after about an hour or so of being off sedation. 03/17/21: Will drop tidal volume down to 400. repeat ABG in am. If patient seizes, please obtain stat ABG. Could be secondary to alkalemia. Mental state not improving post improvement of acidemia is a poor prognostic sign in my opinion. Neurology on board and head CT was negative. Neurology wants to try lactulose so ordered today. Will do for 24-36 hours to see if this helps with mental state but doubt it will. Very very guarded to poor prognosis. Plan to have family meeting next week (friday) 03/16/21: Acidemia is improved with HD. Likely will hold today. Stopped bicarb drip and patient is now off pressors. Given drop in hemoglobin need to correct coagulopathy. FFP, vitamin K. GI already following. Hopefully patient does not have esophargeal or gastric varices. No overt evidence of bleeding. q6hour H/H's. Monitor platelets but hold on transfusion for now. Neurology concerned about ammonia level. Have no problem with empiric lactulose but will not trend ammonia levels. Very very guarded prognosis. 03/15/21: Vascath placed in right groin. ORder theron in the event it is needed during HD. Increase bicarb drip to 200. Hold all sedatives. No acute evidence of bleeding currently. Continue to trend LFT's and COags. Very very guarded prognosis. If not able to tolerate HD to fix acidemia, prognosis becomes gravely poor. 03/14/21: Started patient on bicarb drip and gave a few amps of sodium bicarb. Added vasopressin therapy. Continue Steroids and Remdesivir. Off sedation. Guarded prognosis. 1. Wean Vent settings and sedation as tolerated 2. Remdesivir and Steroids, Pending CRP, actemra 3. Hold on proning now that intubated, not able to paralyze and adequately sedate in the ED 4. Negative fluid balance if possible 5. Needs paracentesis, this should take care of pleural effusion as well. 6. Guarded prognosis. CCT 31 minutes. Subjective Date of service: 03/19/21 Principal diagnosis: Liver, anemia Interval history: No acute events. Currently on PSV and tolerating. Objective Vital Signs - 12hr 03/18/21 03/18/21 03/18/21 21:30 21:45 22:00 Temperature Pulse Rate 106 H 103 H 96 H Pulse Rate [ From Monitor] Respiratory 14 18 15 Rate Blood Pressure 162/85 155/104 163/101 O2 Sat by Pulse 99 100 100 Oximetry 03/18/21 03/18/21 03/18/21 22:15 22:30 22:41 Temperature Pulse Rate 97 H 102 H 94 H Pulse Rate [ From Monitor] Respiratory 17 17 18 Rate Blood Pressure 159/102 158/90 158/90 O2 Sat by Pulse 100 100 100 Oximetry 03/18/21 03/18/21 03/18/21 22:45 23:00 23:15 Temperature Pulse Rate 95 H 95 H 94 H Pulse Rate [ From Monitor] Respiratory 15 24 19 Rate Blood Pressure 164/100 164/101 160/86 O2 Sat by Pulse 100 100 100 Oximetry 03/18/21 03/18/21 03/18/21 23:30 23:45 23:56 Temperature Pulse Rate 96 H 100 H 94 H Pulse Rate [ From Monitor] Respiratory 19 16 Rate Blood Pressure 162/97 162/98 162/98 O2 Sat by Pulse 100 100 100 Oximetry 03/19/21 03/19/21 03/19/21 00:00 00:01 00:15 Temperature 99 F Pulse Rate 90 98 H 96 H Pulse Rate [ 92 H From Monitor] Respiratory 18 14 18 Rate Blood Pressure 151/97 166/95 O2 Sat by Pulse 99 100 100 Oximetry 03/19/21 03/19/21 03/19/21 00:31 00:45 01:00 Temperature Pulse Rate 93 H 99 H 94 H Pulse Rate [ From Monitor] Respiratory 16 15 13 Rate Blood Pressure 166/95 143/92 156/97 O2 Sat by Pulse 100 98 99 Oximetry 01/17/22 01/17/22 01/17/22 01:15 01:30 01:45 Temperature Pulse Rate 97 H 96 H 95 H Pulse Rate [ From Monitor] Respiratory 11 L 11 L 11 L Rate Blood Pressure 149/92 150/91 147/96 O2 Sat by Pulse 99 99 99 Oximetry 03/19/21 03/19/21 03/19/21 02:00 02:15 02:30 Temperature Pulse Rate 97 H 93 H 96 H Pulse Rate [ From Monitor] Respiratory 14 11 L 11 L Rate Blood Pressure 147/93 142/93 139/92 O2 Sat by Pulse 99 99 99 Oximetry 03/19/21 03/19/21 03/19/21 02:45 03:00 03:15 Temperature Pulse Rate 93 H 96 H 92 H Pulse Rate [ From Monitor] Respiratory 15 12 14 Rate Blood Pressure 149/91 150/100 144/98 O2 Sat by Pulse 99 98 98 Oximetry 03/19/21 03/19/21 03/19/21 03:30 03:38 03:45 Temperature 98.1 F Pulse Rate 94 H 93 H Pulse Rate [ From Monitor] Respiratory 14 14 Rate Blood Pressure 146/99 146/99 O2 Sat by Pulse 99 99 Oximetry 03/19/21 03/19/21 03/19/21 04:00 04:15 04:30 Temperature Pulse Rate 92 H 89 89 Pulse Rate [ 90 From Monitor] Respiratory 19 14 12 Rate Blood Pressure 148/94 145/92 147/94 O2 Sat by Pulse 100 99 99 Oximetry 03/19/21 03/19/21 03/19/21 04:35 04:45 05:00 Temperature Pulse Rate 90 88 89 Pulse Rate [ From Monitor] Respiratory 12 14 Rate Blood Pressure 147/94 141/94 140/96 O2 Sat by Pulse 99 99 99 Oximetry 03/19/21 03/19/21 03/19/21 05:15 05:30 05:45 Temperature Pulse Rate 87 91 H 87 Pulse Rate [ From Monitor] Respiratory 13 17 14 Rate Blood Pressure 150/93 145/96 141/92 O2 Sat by Pulse 99 100 99 Oximetry 03/19/21 03/19/21 03/19/21 06:00 06:15 06:30 Temperature Pulse Rate 88 85 85 Pulse Rate [ From Monitor] Respiratory 16 10 L 10 L Rate Blood Pressure 141/92 156/97 156/97 O2 Sat by Pulse 98 98 99 Oximetry 03/19/21 03/19/21 03/19/21 06:45 07:00 07:15 Temperature Pulse Rate 91 H 89 91 H Pulse Rate [ From Monitor] Respiratory 10 L 11 L 14 Rate Blood Pressure 150/98 153/94 148/98 O2 Sat by Pulse 98 99 99 Oximetry 03/19/21 03/19/21 03/19/21 07:30 07:32 07:45 Temperature 97.5 F L Pulse Rate 89 88 Pulse Rate [ From Monitor] Respiratory 11 L 10 L Rate Blood Pressure 152/96 153/98 O2 Sat by Pulse 99 99 Oximetry 03/19/21 03/19/21 03/19/21 08:00 08:08 08:15 Temperature Pulse Rate 88 91 H 93 H Pulse Rate [ 88 From Monitor] Respiratory 8 L 12 9 L Rate Blood Pressure 152/96 148/98 155/94 O2 Sat by Pulse 99 99 100 Oximetry 03/19/21 03/19/21 08:30 08:38 Temperature 97.7 F Pulse Rate 92 H Pulse Rate [ From Monitor] Respiratory 8 L Rate Blood Pressure 158/99 O2 Sat by Pulse 100 Oximetry Gastrointestinal: normoactive bowel sounds Integumentary: normal CBC and BMP: 03/19/21 04:00 03/19/21 04:00 ABG, PT/INR, D-dimer: ABG ABG pH 7.534 (7.320-7.450) H 03/18/21 04:14 POC ABG pCO2 38.3 mmHg (32.0-48.0) 03/18/21 04:14 ABG pCO2 21.2 mm Hg 03/15/21 03:42 POC ABG pO2 73.1 mmHg (83-108) L 03/18/21 04:14 ABG pO2 90.7 mm Hg (80.0-90.0) H 03/15/21 03:42 POC ABG HCO3 31.6 03/18/21 04:14 ABG O2 Saturation 94.5 (0-100) 03/18/21 04:14 PT/INR, D-dimer PT 23.6 Sec. (12.2-14.9) H 03/19/21 04:00 INR 1.91 (0.87-1.13) H 03/19/21 04:00 D-Dimer > 40669 ng/mlDDU (0-234) H 03/19/21 04:00 Abnormal lab findings: Abnormal Labs 03/12/21 03/12/21 03/12/21 18:17 18:54 18:54 WBC 15.4 H RBC Hgb 9.0 L Hct 33.2 L MCV 77 L MCH 21 L MCHC 27 L RDW 28.1 H Plt Count Seg Neuts % (Manual) 86.0 H Lymphocytes % (Manual) 4.0 L Monocytes % (Manual) 8.0 H Nucleated RBC % Seg Neutrophils # Man 13.2 H Lymphocytes # (Manual) 0.6 L Monocytes # (Manual) 1.2 H PT INR APTT D-Dimer ABG pH POC ABG pCO2 POC ABG pO2 ABG pO2 ABG HCO3 ABG O2 Saturation ABG Base Excess ABG Hemoglobin ABG Oxyhemoglobin ABG Sodium ABG Potassium ABG Glucose Oxyhemoglobin Sodium 136 L Potassium 5.4 H Chloride Carbon Dioxide 16 L BUN 32 H Creatinine Glucose 104 H POC Glucose 58 L Calcium Magnesium Ferritin Total Bilirubin 1.40 H AST 71 H ALT Alkaline Phosphatase 164 H Ammonia Lactate Dehydrogenase C-Reactive Protein NT-Pro-B Natriuret Pep Total Protein Albumin 2.2 L Arterial Blood Glucose Arterial Blood Ionized Calcium Coronavirus (PCR) Hepatitis C Antibody Crossmatch 03/12/21 03/12/21 03/12/21 18:54 18:54 18:54 WBC RBC Hgb Hct MCV MCH MCHC RDW Plt Count Seg Neuts % (Manual) Lymphocytes % (Manual) Monocytes % (Manual) Nucleated RBC % Seg Neutrophils # Man Lymphocytes # (Manual) Monocytes # (Manual) PT 17.6 H INR 1.31 H APTT 38.7 H D-Dimer > 84783 H ABG pH POC ABG pCO2 POC ABG pO2 ABG pO2 ABG HCO3 ABG O2 Saturation ABG Base Excess ABG Hemoglobin ABG Oxyhemoglobin ABG Sodium ABG Potassium ABG Glucose Oxyhemoglobin Sodium Potassium Chloride Carbon Dioxide BUN Creatinine Glucose POC Glucose Calcium Magnesium Ferritin Total Bilirubin AST ALT Alkaline Phosphatase Ammonia 72.0 H Lactate Dehydrogenase C-Reactive Protein NT-Pro-B Natriuret Pep 1838 H Total Protein Albumin Arterial Blood Glucose Arterial Blood Ionized Calcium Coronavirus (PCR) Hepatitis C Antibody Crossmatch 03/12/21 03/12/21 03/12/21 18:54 19:04 19:21 WBC RBC Hgb Hct MCV MCH MCHC RDW Plt Count Seg Neuts % (Manual) Lymphocytes % (Manual) Monocytes % (Manual) Nucleated RBC % Seg Neutrophils # Man Lymphocytes # (Manual) Monocytes # (Manual) PT INR APTT D-Dimer ABG pH POC ABG pCO2 POC ABG pO2 ABG pO2 ABG HCO3 ABG O2 Saturation ABG Base Excess ABG Hemoglobin ABG Oxyhemoglobin ABG Sodium ABG Potassium ABG Glucose Oxyhemoglobin Sodium Potassium Chloride Carbon Dioxide BUN Creatinine Glucose POC Glucose 30 L Calcium Magnesium Ferritin 414.7 H Total Bilirubin AST ALT Alkaline Phosphatase Ammonia Lactate Dehydrogenase 287 H C-Reactive Protein 10.80 H NT-Pro-B Natriuret Pep Total Protein Albumin Arterial Blood Glucose Arterial Blood Ionized Calcium Coronavirus (PCR) Hepatitis C Antibody Crossmatch 03/12/21 03/12/21 03/13/21 19:50 20:14 00:05 WBC RBC Hgb Hct MCV MCH MCHC RDW Plt Count Seg Neuts % (Manual) Lymphocytes % (Manual) Monocytes % (Manual) Nucleated RBC % Seg Neutrophils # Man Lymphocytes # (Manual) Monocytes # (Manual) PT INR APTT D-Dimer ABG pH POC ABG pCO2 POC ABG pO2 314.9 H ABG pO2 ABG HCO3 ABG O2 Saturation ABG Base Excess ABG Hemoglobin ABG Oxyhemoglobin 98.9 H ABG Sodium ABG Potassium ABG Glucose 229 H Oxyhemoglobin Sodium Potassium Chloride Carbon Dioxide BUN Creatinine Glucose POC Glucose 24 L 371 H Calcium Magnesium Ferritin Total Bilirubin AST ALT Alkaline Phosphatase Ammonia Lactate Dehydrogenase C-Reactive Protein NT-Pro-B Natriuret Pep Total Protein Albumin Arterial Blood Glucose 229 H Arterial Blood Ionized Calcium Coronavirus (PCR) Hepatitis C Antibody Crossmatch 03/13/21 03/13/21 03/13/21 02:29 14:32 14:32 WBC 17.3 H RBC Hgb 8.8 L Hct 31.0 L MCV 75 L MCH 22 L MCHC 29 L RDW 27.5 H Plt Count Seg Neuts % (Manual) 91.0 H Lymphocytes % (Manual) 0 L Monocytes % (Manual) Nucleated RBC % 2.0 H Seg Neutrophils # Man 15.7 H Lymphocytes # (Manual) 0.0 L Monocytes # (Manual) 0.9 H PT INR APTT D-Dimer ABG pH POC ABG pCO2 POC ABG pO2 ABG pO2 ABG HCO3 ABG O2 Saturation ABG Base Excess ABG Hemoglobin ABG Oxyhemoglobin ABG Sodium ABG Potassium ABG Glucose Oxyhemoglobin Sodium Potassium Chloride Carbon Dioxide 16 L BUN 35 H Creatinine 1.5 H Glucose 58 L POC Glucose 128 H Calcium 7.8 L Magnesium Ferritin Total Bilirubin 1.40 H AST 82 H ALT Alkaline Phosphatase 163 H Ammonia Lactate Dehydrogenase C-Reactive Protein NT-Pro-B Natriuret Pep Total Protein 6.2 L Albumin 1.7 L Arterial Blood Glucose Arterial Blood Ionized Calcium Coronavirus (PCR) Hepatitis C Antibody Crossmatch 03/13/21 03/14/21 03/14/21 Unknown 05:00 05:34 WBC 16.9 H RBC Hgb 7.9 L Hct 29.4 L MCV 80 L MCH 22 L MCHC 27 L RDW 28.6 H Plt Count Seg Neuts % (Manual) 72.0 H Lymphocytes % (Manual) 5.0 L Monocytes % (Manual) Nucleated RBC % 7.0 H Seg Neutrophils # Man 12.2 H Lymphocytes # (Manual) 0.8 L Monocytes # (Manual) PT INR APTT D-Dimer ABG pH 7.167 L POC ABG pCO2 24.6 L POC ABG pO2 ABG pO2 ABG HCO3 ABG O2 Saturation ABG Base Excess ABG Hemoglobin 9.3 L ABG Oxyhemoglobin ABG Sodium 135.2 L ABG Potassium 5.5 H ABG Glucose Oxyhemoglobin Sodium Potassium Chloride Carbon Dioxide BUN Creatinine Glucose POC Glucose Calcium Magnesium Ferritin Total Bilirubin AST ALT Alkaline Phosphatase Ammonia Lactate Dehydrogenase C-Reactive Protein NT-Pro-B Natriuret Pep Total Protein Albumin Arterial Blood Glucose Arterial Blood Ionized Calcium 4.3 L Coronavirus (PCR) Positive A Hepatitis C Antibody Crossmatch 03/14/21 03/14/21 03/14/21 05:34 05:34 05:34 WBC RBC Hgb Hct MCV MCH MCHC RDW Plt Count Seg Neuts % (Manual) Lymphocytes % (Manual) Monocytes % (Manual) Nucleated RBC % Seg Neutrophils # Man Lymphocytes # (Manual) Monocytes # (Manual) PT INR APTT D-Dimer > 89528 H ABG pH POC ABG pCO2 POC ABG pO2 ABG pO2 ABG HCO3 ABG O2 Saturation ABG Base Excess ABG Hemoglobin ABG Oxyhemoglobin ABG Sodium ABG Potassium ABG Glucose Oxyhemoglobin Sodium Potassium 5.7 H D Chloride Carbon Dioxide BUN 37 H Creatinine Glucose POC Glucose Calcium 7.9 L Magnesium Ferritin 6545.0 H Total Bilirubin 1.80 H AST 4019 H ALT 501 H Alkaline Phosphatase Ammonia Lactate Dehydrogenase 2367 H C-Reactive Protein 8.40 H NT-Pro-B Natriuret Pep Total Protein 5.8 L Albumin 1.8 L Arterial Blood Glucose Arterial Blood Ionized Calcium Coronavirus (PCR) Hepatitis C Antibody Crossmatch 03/14/21 03/14/21 03/14/21 05:34 07:16 07:18 WBC RBC Hgb Hct MCV MCH MCHC RDW Plt Count Seg Neuts % (Manual) Lymphocytes % (Manual) Monocytes % (Manual) Nucleated RBC % Seg Neutrophils # Man Lymphocytes # (Manual) Monocytes # (Manual) PT INR APTT D-Dimer ABG pH POC ABG pCO2 POC ABG pO2 ABG pO2 ABG HCO3 ABG O2 Saturation ABG Base Excess ABG Hemoglobin ABG Oxyhemoglobin ABG Sodium ABG Potassium ABG Glucose Oxyhemoglobin Sodium Potassium 5.4 H Chloride Carbon Dioxide 12 L BUN 38 H Creatinine 2.5 H D Glucose 29 L* POC Glucose 17 L Calcium 7.6 L Magnesium Ferritin Total Bilirubin AST ALT Alkaline Phosphatase Ammonia Lactate Dehydrogenase 2218 H C-Reactive Protein 8.30 H NT-Pro-B Natriuret Pep Total Protein Albumin Arterial Blood Glucose Arterial Blood Ionized Calcium Coronavirus (PCR) Hepatitis C Antibody Reactive A Crossmatch 03/14/21 03/14/21 03/14/21 08:08 08:59 10:06 WBC RBC Hgb Hct MCV MCH MCHC RDW Plt Count Seg Neuts % (Manual) Lymphocytes % (Manual) Monocytes % (Manual) Nucleated RBC % Seg Neutrophils # Man Lymphocytes # (Manual) Monocytes # (Manual) PT 40.7 H INR 3.85 H APTT D-Dimer ABG pH POC ABG pCO2 POC ABG pO2 ABG pO2 ABG HCO3 ABG O2 Saturation ABG Base Excess ABG Hemoglobin ABG Oxyhemoglobin ABG Sodium ABG Potassium ABG Glucose Oxyhemoglobin Sodium Potassium Chloride Carbon Dioxide BUN Creatinine Glucose POC Glucose 11 L 144 H Calcium Magnesium Ferritin Total Bilirubin AST ALT Alkaline Phosphatase Ammonia Lactate Dehydrogenase C-Reactive Protein NT-Pro-B Natriuret Pep Total Protein Albumin Arterial Blood Glucose Arterial Blood Ionized Calcium Coronavirus (PCR) Hepatitis C Antibody Crossmatch 03/14/21 03/15/21 03/15/21 18:15 03:42 04:17 WBC RBC Hgb Hct MCV MCH MCHC RDW Plt Count Seg Neuts % (Manual) Lymphocytes % (Manual) Monocytes % (Manual) Nucleated RBC % Seg Neutrophils # Man Lymphocytes # (Manual) Monocytes # (Manual) PT INR APTT D-Dimer ABG pH 7.088 L* POC ABG pCO2 POC ABG pO2 ABG pO2 90.7 H ABG HCO3 6.2 L ABG O2 Saturation 92.8 L ABG Base Excess -21.8 L ABG Hemoglobin 8.9 L ABG Oxyhemoglobin ABG Sodium ABG Potassium ABG Glucose Oxyhemoglobin 90.8 L Sodium Potassium 6.5 H* D Chloride Carbon Dioxide 5 L* D BUN 37 H Creatinine 2.1 H Glucose POC Glucose 124 H Calcium 7.4 L Magnesium Ferritin Total Bilirubin 2.40 H AST 3911 H ALT 663 H Alkaline Phosphatase 139 H Ammonia Lactate Dehydrogenase C-Reactive Protein NT-Pro-B Natriuret Pep Total Protein 5.8 L Albumin 1.8 L Arterial Blood Glucose Arterial Blood Ionized Calcium Coronavirus (PCR) Hepatitis C Antibody Crossmatch 03/15/21 03/15/21 03/15/21 11:17 11:41 13:13 WBC RBC Hgb Hct MCV MCH MCHC RDW Plt Count Seg Neuts % (Manual) Lymphocytes % (Manual) Monocytes % (Manual) Nucleated RBC % Seg Neutrophils # Man Lymphocytes # (Manual) Monocytes # (Manual) PT INR APTT D-Dimer ABG pH POC ABG pCO2 POC ABG pO2 ABG pO2 ABG HCO3 ABG O2 Saturation ABG Base Excess ABG Hemoglobin ABG Oxyhemoglobin ABG Sodium ABG Potassium ABG Glucose Oxyhemoglobin Sodium 153 H D Potassium Chloride Carbon Dioxide 14 L D BUN 31 H Creatinine 1.8 H Glucose 262 H POC Glucose 17 L 35 L Calcium 5.8 L* D Magnesium Ferritin Total Bilirubin AST ALT Alkaline Phosphatase Ammonia Lactate Dehydrogenase C-Reactive Protein NT-Pro-B Natriuret Pep Total Protein Albumin Arterial Blood Glucose Arterial Blood Ionized Calcium Coronavirus (PCR) Hepatitis C Antibody Crossmatch 03/15/21 03/15/21 03/16/21 13:53 23:52 06:30 WBC RBC Hgb Hct MCV MCH MCHC RDW Plt Count Seg Neuts % (Manual) Lymphocytes % (Manual) Monocytes % (Manual) Nucleated RBC % Seg Neutrophils # Man Lymphocytes # (Manual) Monocytes # (Manual) PT INR APTT D-Dimer ABG pH POC ABG pCO2 POC ABG pO2 ABG pO2 ABG HCO3 ABG O2 Saturation ABG Base Excess ABG Hemoglobin ABG Oxyhemoglobin ABG Sodium ABG Potassium ABG Glucose Oxyhemoglobin Sodium 146 H Potassium 3.1 L D Chloride Carbon Dioxide BUN 27 H Creatinine 1.8 H Glucose 140 H POC Glucose 40 L 142 H Calcium 7.3 L D Magnesium Ferritin Total Bilirubin 3.10 H AST 2233 H ALT 409 H Alkaline Phosphatase 156 H Ammonia Lactate Dehydrogenase C-Reactive Protein NT-Pro-B Natriuret Pep Total Protein 5.2 L Albumin 2.5 L Arterial Blood Glucose Arterial Blood Ionized Calcium Coronavirus (PCR) Hepatitis C Antibody Crossmatch 03/16/21 03/16/21 03/16/21 06:30 06:30 06:30 WBC 15.5 H RBC 2.54 L Hgb 5.5 L* Hct 19.1 L* D MCV 75 L MCH 21 L MCHC 29 L RDW 26.7 H Plt Count 36 L Seg Neuts % (Manual) Lymphocytes % (Manual) Monocytes % (Manual) Nucleated RBC % Seg Neutrophils # Man Lymphocytes # (Manual) Monocytes # (Manual) PT 58.3 H INR 6.13 H* APTT D-Dimer ABG pH POC ABG pCO2 POC ABG pO2 ABG pO2 ABG HCO3 ABG O2 Saturation ABG Base Excess ABG Hemoglobin ABG Oxyhemoglobin ABG Sodium ABG Potassium ABG Glucose Oxyhemoglobin Sodium Potassium Chloride Carbon Dioxide BUN Creatinine Glucose POC Glucose Calcium Magnesium 1.60 L Ferritin Total Bilirubin AST ALT Alkaline Phosphatase Ammonia Lactate Dehydrogenase C-Reactive Protein NT-Pro-B Natriuret Pep Total Protein Albumin Arterial Blood Glucose Arterial Blood Ionized Calcium Coronavirus (PCR) Hepatitis C Antibody Crossmatch 03/16/21 03/16/21 03/16/21 08:00 12:10 13:19 WBC RBC Hgb Hct MCV MCH MCHC RDW Plt Count Seg Neuts % (Manual) Lymphocytes % (Manual) Monocytes % (Manual) Nucleated RBC % Seg Neutrophils # Man Lymphocytes # (Manual) Monocytes # (Manual) PT INR APTT D-Dimer ABG pH POC ABG pCO2 POC ABG pO2 ABG pO2 ABG HCO3 ABG O2 Saturation ABG Base Excess ABG Hemoglobin ABG Oxyhemoglobin ABG Sodium ABG Potassium ABG Glucose Oxyhemoglobin Sodium Potassium Chloride Carbon Dioxide BUN Creatinine Glucose POC Glucose 59 L 110 H Calcium Magnesium Ferritin Total Bilirubin AST ALT Alkaline Phosphatase Ammonia Lactate Dehydrogenase C-Reactive Protein NT-Pro-B Natriuret Pep Total Protein Albumin Arterial Blood Glucose Arterial Blood Ionized Calcium Coronavirus (PCR) Hepatitis C Antibody Crossmatch See Detail 03/16/21 03/16/21 03/16/21 22:15 22:15 22:15 WBC 16.3 H RBC Hgb 9.7 L D Hct 31.9 L D MCV 79 L MCH 24 L MCHC 30 L RDW 26.0 H Plt Count 27 L Seg Neuts % (Manual) Lymphocytes % (Manual) Monocytes % (Manual) Nucleated RBC % Seg Neutrophils # Man Lymphocytes # (Manual) Monocytes # (Manual) PT 30.3 H INR 2.63 H APTT D-Dimer ABG pH POC ABG pCO2 POC ABG pO2 ABG pO2 ABG HCO3 ABG O2 Saturation ABG Base Excess ABG Hemoglobin ABG Oxyhemoglobin ABG Sodium ABG Potassium ABG Glucose Oxyhemoglobin Sodium Potassium 3.3 L Chloride Carbon Dioxide BUN Creatinine Glucose POC Glucose Calcium Magnesium 2.50 H Ferritin Total Bilirubin AST ALT Alkaline Phosphatase Ammonia Lactate Dehydrogenase C-Reactive Protein NT-Pro-B Natriuret Pep Total Protein Albumin Arterial Blood Glucose Arterial Blood Ionized Calcium Coronavirus (PCR) Hepatitis C Antibody Crossmatch 03/17/21 03/17/21 03/17/21 00:21 00:46 02:34 WBC RBC Hgb Hct MCV MCH MCHC RDW Plt Count Seg Neuts % (Manual) Lymphocytes % (Manual) Monocytes % (Manual) Nucleated RBC % Seg Neutrophils # Man Lymphocytes # (Manual) Monocytes # (Manual) PT INR APTT D-Dimer ABG pH 7.614 H POC ABG pCO2 23.4 L POC ABG pO2 70.5 L ABG pO2 ABG HCO3 ABG O2 Saturation ABG Base Excess ABG Hemoglobin 9.9 L ABG Oxyhemoglobin 93.7 L ABG Sodium ABG Potassium 3.0 L ABG Glucose Oxyhemoglobin Sodium Potassium Chloride Carbon Dioxide BUN Creatinine Glucose POC Glucose 53 L 55 L Calcium Magnesium Ferritin Total Bilirubin AST ALT Alkaline Phosphatase Ammonia Lactate Dehydrogenase C-Reactive Protein NT-Pro-B Natriuret Pep Total Protein Albumin Arterial Blood Glucose Arterial Blood Ionized Calcium 4.0 L Coronavirus (PCR) Hepatitis C Antibody Crossmatch 03/17/21 03/17/2103/17/22 04:19 04:19 04:19 WBC 15.0 H RBC Hgb 9.3 L Hct 30.3 L MCV 78 L MCH 24 L MCHC 31 L RDW 26.2 H Plt Count 20 L Seg Neuts % (Manual) Lymphocytes % (Manual) Monocytes % (Manual) Nucleated RBC % Seg Neutrophils # Man Lymphocytes # (Manual) Monocytes # (Manual) PT 29.8 H INR 2.58 H APTT D-Dimer ABG pH POC ABG pCO2 POC ABG pO2 ABG pO2 ABG HCO3 ABG O2 Saturation ABG Base Excess ABG Hemoglobin ABG Oxyhemoglobin ABG Sodium ABG Potassium ABG Glucose Oxyhemoglobin Sodium 147 H Potassium 3.0 L Chloride Carbon Dioxide BUN 33 H Creatinine 1.6 H Glucose POC Glucose Calcium 8.0 L Magnesium Ferritin Total Bilirubin 4.30 H AST 1427 H ALT 340 H Alkaline Phosphatase Ammonia Lactate Dehydrogenase C-Reactive Protein NT-Pro-B Natriuret Pep Total Protein 5.4 L Albumin 2.3 L Arterial Blood Glucose Arterial Blood Ionized Calcium Coronavirus (PCR) Hepatitis C Antibody Crossmatch 03/17/21 03/17/21 03/17/21 04:19 13:37 18:25 WBC RBC Hgb 9.7 L Hct 31.6 L MCV MCH MCHC RDW Plt Count Seg Neuts % (Manual) Lymphocytes % (Manual) Monocytes % (Manual) Nucleated RBC % Seg Neutrophils # Man Lymphocytes # (Manual) Monocytes # (Manual) PT INR APTT D-Dimer ABG pH POC ABG pCO2 POC ABG pO2 ABG pO2 ABG HCO3 ABG O2 Saturation ABG Base Excess ABG Hemoglobin ABG Oxyhemoglobin ABG Sodium ABG Potassium ABG Glucose Oxyhemoglobin Sodium Potassium Chloride Carbon Dioxide BUN Creatinine Glucose POC Glucose 148 H Calcium Magnesium 2.40 H Ferritin Total Bilirubin AST ALT Alkaline Phosphatase Ammonia Lactate Dehydrogenase C-Reactive Protein NT-Pro-B Natriuret Pep Total Protein Albumin Arterial Blood Glucose Arterial Blood Ionized Calcium Coronavirus (PCR) Hepatitis C Antibody Crossmatch 03/17/21 03/18/21 03/18/21 23:46 04:14 05:09 WBC RBC Hgb Hct MCV MCH MCHC RDW Plt Count Seg Neuts % (Manual) Lymphocytes % (Manual) Monocytes % (Manual) Nucleated RBC % Seg Neutrophils # Man Lymphocytes # (Manual) Monocytes # (Manual) PT INR APTT D-Dimer ABG pH 7.534 H POC ABG pCO2 POC ABG pO2 73.1 L ABG pO2 ABG HCO3 ABG O2 Saturation ABG Base Excess ABG Hemoglobin 10.1 L ABG Oxyhemoglobin 93.6 L ABG Sodium ABG Potassium 3.3 L ABG Glucose 193 H Oxyhemoglobin Sodium Potassium Chloride Carbon Dioxide BUN Creatinine Glucose POC Glucose 169 H 167 H Calcium Magnesium Ferritin Total Bilirubin AST ALT Alkaline Phosphatase Ammonia Lactate Dehydrogenase C-Reactive Protein NT-Pro-B Natriuret Pep Total Protein Albumin Arterial Blood Glucose 193 H Arterial Blood Ionized Calcium 4.4 L Coronavirus (PCR) Hepatitis C Antibody Crossmatch 03/18/21 03/18/21 03/18/21 06:20 06:20 11:49 WBC 13.5 H RBC Hgb 9.3 L Hct 30.7 L MCV 79 L MCH 24 L MCHC 30 L RDW 27.0 H Plt Count 13 L* Seg Neuts % (Manual) Lymphocytes % (Manual) Monocytes % (Manual) Nucleated RBC % Seg Neutrophils # Man Lymphocytes # (Manual) Monocytes # (Manual) PT INR APTT D-Dimer ABG pH POC ABG pCO2 POC ABG pO2 ABG pO2 ABG HCO3 ABG O2 Saturation ABG Base Excess ABG Hemoglobin ABG Oxyhemoglobin ABG Sodium ABG Potassium ABG Glucose Oxyhemoglobin Sodium 147 H Potassium 3.3 L Chloride Carbon Dioxide BUN 42 H Creatinine Glucose 192 H POC Glucose 191 H Calcium 8.1 L Magnesium Ferritin Total Bilirubin 5.50 H AST 619 H ALT 248 H Alkaline Phosphatase Ammonia Lactate Dehydrogenase C-Reactive Protein NT-Pro-B Natriuret Pep Total Protein 5.2 L Albumin 2.0 L Arterial Blood Glucose Arterial Blood Ionized Calcium Coronavirus (PCR) Hepatitis C Antibody Crossmatch 03/18/21 03/18/21 03/19/21 17:03 23:49 04:00 WBC RBC Hgb Hct MCV MCH MCHC RDW Plt Count Seg Neuts % (Manual) Lymphocytes % (Manual) Monocytes % (Manual) Nucleated RBC % Seg Neutrophils # Man Lymphocytes # (Manual) Monocytes # (Manual) PT INR APTT D-Dimer ABG pH POC ABG pCO2 POC ABG pO2 ABG pO2 ABG HCO3 ABG O2 Saturation ABG Base Excess ABG Hemoglobin ABG Oxyhemoglobin ABG Sodium ABG Potassium ABG Glucose Oxyhemoglobin Sodium 146 H Potassium Chloride 107.4 H Carbon Dioxide 31 H BUN 42 H Creatinine 0.6 L Glucose 230 H POC Glucose 214 H 192 H Calcium 8.3 L Magnesium 2.50 H Ferritin Total Bilirubin 7.40 H AST 354 H ALT 221 H Alkaline Phosphatase 154 H Ammonia Lactate Dehydrogenase C-Reactive Protein NT-Pro-B Natriuret Pep Total Protein 5.8 L Albumin 2.1 L Arterial Blood Glucose Arterial Blood Ionized Calcium Coronavirus (PCR) Hepatitis C Antibody Crossmatch 03/19/21 03/19/21 03/19/21 04:00 04:00 04:00 WBC 16.0 H RBC Hgb 9.9 L Hct 32.8 L MCV 80 L MCH 24 L MCHC 30 L RDW 27.6 H Plt Count 24 L Seg Neuts % (Manual) Lymphocytes % (Manual) Monocytes % (Manual) Nucleated RBC % Seg Neutrophils # Man Lymphocytes # (Manual) Monocytes # (Manual) PT 23.6 H INR 1.91 H APTT D-Dimer > 47850 H ABG pH POC ABG pCO2 POC ABG pO2 ABG pO2 ABG HCO3 ABG O2 Saturation ABG Base Excess ABG Hemoglobin ABG Oxyhemoglobin ABG Sodium ABG Potassium ABG Glucose Oxyhemoglobin Sodium Potassium Chloride Carbon Dioxide BUN Creatinine Glucose POC Glucose Calcium Magnesium Ferritin 730.0 H Total Bilirubin AST ALT Alkaline Phosphatase Ammonia Lactate Dehydrogenase C-Reactive Protein NT-Pro-B Natriuret Pep Total Protein Albumin Arterial Blood Glucose Arterial Blood Ionized Calcium Coronavirus (PCR) Hepatitis C Antibody Crossmatch 03/19/21 03/19/21 04:00 05:43 WBC RBC Hgb Hct MCV MCH MCHC RDW Plt Count Seg Neuts % (Manual) Lymphocytes % (Manual) Monocytes % (Manual) Nucleated RBC % Seg Neutrophils # Man Lymphocytes # (Manual) Monocytes # (Manual) PT INR APTT D-Dimer ABG pH POC ABG pCO2 POC ABG pO2 ABG pO2 ABG HCO3 ABG O2 Saturation ABG Base Excess ABG Hemoglobin ABG Oxyhemoglobin ABG Sodium ABG Potassium ABG Glucose Oxyhemoglobin Sodium Potassium Chloride Carbon Dioxide BUN Creatinine Glucose POC Glucose 220 H Calcium Magnesium Ferritin Total Bilirubin AST ALT Alkaline Phosphatase Ammonia Lactate Dehydrogenase 915 H C-Reactive Protein 4.30 H NT-Pro-B Natriuret Pep Total Protein Albumin Arterial Blood Glucose Arterial Blood Ionized Calcium Coronavirus (PCR) Hepatitis C Antibody Crossmatch
--- NOTE | 2021-03-19 10:23 | Progress Note ---
Assessment and Plan Impression: * IVON--ATN --HD on Mar 15 for hyperkalemia, refractory metabolic acidosis * Sepsis * Acute hypoxic resp failure * COVID PNA * Hyperkalemia - resolved * Refractory metabolic acidosis - resolved Plan: * No acute indication for renal replacement therapy * Vent management per primary team * Medical management of electrolytes * Continue IVF * Maintain MAP >65, pressors prn * Avoid potential nephrotoxins Subjective Date of service: 03/19/21 Principal diagnosis: Liver, anemia Interval history: Chart, vitals, labs reviewed. Patient remains intubated. Objective - Exam Narrative Exam: Physical exam deferred; primary team exam noted - Vital Signs Vital signs: Vital Signs - 12hr 03/18/21 03/18/21 03/18/21 22:30 22:41 22:45 Temperature Pulse Rate 102 H 94 H 95 H Pulse Rate [ From Monitor] Respiratory 17 18 15 Rate Blood Pressure 158/90 158/90 164/100 O2 Sat by Pulse 100 100 100 Oximetry 03/18/21 03/18/21 03/18/21 23:00 23:15 23:30 Temperature Pulse Rate 95 H 94 H 96 H Pulse Rate [ From Monitor] Respiratory 24 19 19 Rate Blood Pressure 164/101 160/86 162/97 O2 Sat by Pulse 100 100 100 Oximetry 03/18/21 03/18/21 03/19/21 23:45 23:56 00:00 Temperature 99 F Pulse Rate 100 H 94 H 90 Pulse Rate [ 92 H From Monitor] Respiratory 16 18 Rate Blood Pressure 162/98 162/98 O2 Sat by Pulse 100 100 99 Oximetry 03/19/21 03/19/21 03/19/21 00:01 00:15 00:31 Temperature Pulse Rate 98 H 96 H 93 H Pulse Rate [ From Monitor] Respiratory 14 18 16 Rate Blood Pressure 151/97 166/95 166/95 O2 Sat by Pulse 100 100 100 Oximetry 03/19/21 03/19/21 03/19/21 00:45 01:00 01:15 Temperature Pulse Rate 99 H 94 H 97 H Pulse Rate [ From Monitor] Respiratory 15 13 11 L Rate Blood Pressure 143/92 156/97 149/92 O2 Sat by Pulse 98 99 99 Oximetry 03/19/21 03/19/21 03/19/21 01:30 01:45 02:00 Temperature Pulse Rate 96 H 95 H 97 H Pulse Rate [ From Monitor] Respiratory 11 L 11 L 14 Rate Blood Pressure 150/91 147/96 147/93 O2 Sat by Pulse 99 99 99 Oximetry 03/19/21 03/19/21 03/19/21 02:15 02:30 02:45 Temperature Pulse Rate 93 H 96 H 93 H Pulse Rate [ From Monitor] Respiratory 11 L 11 L 15 Rate Blood Pressure 142/93 139/92 149/91 O2 Sat by Pulse 99 99 99 Oximetry 03/19/21 03/19/21 03/19/21 03:00 03:15 03:30 Temperature Pulse Rate 96 H 92 H 94 H Pulse Rate [ From Monitor] Respiratory 12 14 14 Rate Blood Pressure 150/100 144/98 146/99 O2 Sat by Pulse 98 98 99 Oximetry 03/19/21 03/19/21 03/19/21 03:38 03:45 04:00 Temperature 98.1 F Pulse Rate 93 H 92 H Pulse Rate [ 90 From Monitor] Respiratory 14 19 Rate Blood Pressure 146/99 148/94 O2 Sat by Pulse 99 100 Oximetry 03/19/21 03/19/21 03/19/21 04:15 04:30 04:35 Temperature Pulse Rate 89 89 90 Pulse Rate [ From Monitor] Respiratory 14 12 Rate Blood Pressure 145/92 147/94 147/94 O2 Sat by Pulse 99 99 99 Oximetry 03/19/21 03/19/21 03/19/21 04:45 05:00 05:15 Temperature Pulse Rate 88 89 87 Pulse Rate [ From Monitor] Respiratory 12 14 13 Rate Blood Pressure 141/94 140/96 150/93 O2 Sat by Pulse 99 99 99 Oximetry 03/19/21 03/19/21 03/19/21 05:30 05:45 06:00 Temperature Pulse Rate 91 H 87 88 Pulse Rate [ From Monitor] Respiratory 17 14 16 Rate Blood Pressure 145/96 141/92 141/92 O2 Sat by Pulse 100 99 98 Oximetry 03/19/21 03/19/21 03/19/21 06:15 06:30 06:45 Temperature Pulse Rate 85 85 91 H Pulse Rate [ From Monitor] Respiratory 10 L 10 L 10 L Rate Blood Pressure 156/97 156/97 150/98 O2 Sat by Pulse 98 99 98 Oximetry 03/19/21 03/19/21 03/19/21 07:00 07:15 07:30 Temperature Pulse Rate 89 91 H 89 Pulse Rate [ From Monitor] Respiratory 11 L 14 11 L Rate Blood Pressure 153/94 148/98 152/96 O2 Sat by Pulse 99 99 99 Oximetry 03/19/21 03/19/21 03/19/21 07:32 07:45 08:00 Temperature 97.5 F L Pulse Rate 88 88 Pulse Rate [ 88 From Monitor] Respiratory 10 L 8 L Rate Blood Pressure 153/98 152/96 O2 Sat by Pulse 99 99 Oximetry 03/19/21 03/19/21 03/19/21 08:08 08:15 08:30 Temperature Pulse Rate 91 H 93 H 92 H Pulse Rate [ From Monitor] Respiratory 12 9 L 8 L Rate Blood Pressure 148/98 155/94 158/99 O2 Sat by Pulse 99 100 100 Oximetry 03/19/21 08:38 Temperature 97.7 F Pulse Rate Pulse Rate [ From Monitor] Respiratory Rate Blood Pressure O2 Sat by Pulse Oximetry - Lab 03/19/21 04:00 03/19/21 04:00 Most recent lab results ABG pH 7.534 (7.320-7.450) H 03/18/21 04:14 ABG pCO2 21.2 mm Hg 03/15/21 03:42 ABG pO2 90.7 mm Hg (80.0-90.0) H 03/15/21 03:42 ABG HCO3 6.2 mmol/L (20.0-26.0) L 03/15/21 03:42 ABG O2 Saturation 94.5 (0-100) 03/18/21 04:14 Calcium 8.3 mg/dL (8.4-10.2) L 03/19/21 04:00 Phosphorus 3.20 mg/dL (2.5-4.5) 03/16/21 06:30 Magnesium 2.50 mg/dL (1.7-2.3) H 03/19/21 04:00 Medications & Allergies - Medications Allergies/Adverse Reactions: Allergies No Known Allergies Allergy (Verified 02/27/21 20:19) Home Medications: Home Medications Medication Instructions Recorded Confirmed Last Taken Type Ferrous Sulfate [Feosol 325 MG tab] 325 mg PO BID #30 tablet 03/04/21 Unknown Rx Folic Acid [Folvite] 1 mg PO QDAY #30 tablet 03/04/21 Unknown Rx Spironolactone [Aldactone] 50 mg PO QDAY #30 tablet 03/04/21 Unknown Rx Thiamine [Vitamin B-1] 100 mg PO QDAY #30 tablet 03/04/21 Unknown Rx Active Medications: Generic Name Dose Route Start Last Admin Trade Name Freq PRN Reason Stop Dose Admin Albuterol 2.5 mg 03/12/21 21:29 Albuterol 2.5 Mg/3 Ml Nebu IH Q4HRT PRN Shortness Of Breath Lipase/Protease/Amylase 1 each 03/17/21 12:00 Lipase 10,500/Protease 25,000/Amylase 43,750 (Units) Dr Cap FEEDTUBE PRN PRN For Clogged Feeding Tube Dexamethasone 6 mg 03/13/21 10:00 03/19/21 09:05 Dexamethasone 4 Mg/Ml Vial IV 03/22/21 10:01 6 mg DAILY STEPHEN Administration Dextrose 0 ml 03/15/21 10:00 03/17/21 00:48 Dextrose 50% In Water (25gm) 50 Ml Syringe IV 20 ml Q30MIN PRN Administration Hypoglycemia Protocol Fentanyl 50 mcg 03/13/21 16:03 03/17/21 11:43 Fentanyl 100 Mcg/2 Ml Inj IV 50 mcg Q10MIN PRN Administration ANALGESIA Ferrous Sulfate 300 mg 03/13/21 10:00 03/19/21 09:05 Ferrous Sulfate 300 Mg (60mg Elemental Iron) / 5 Ml Oral Liqd PO 300 mg BID STEPHEN Administration Folic Acid 1 mg 03/13/21 10:00 03/19/21 09:06 Folic Acid 1 Mg Tab PO 1 mg QDAY STEPHEN Administration Hydrophilic Ointment 1 applic 03/12/21 20:02 Lip Therapy Vaseline TP Q2HR PRN Dry Lips Ceftriaxone Sodium 2 gm in 100 mls @ 200 mls/hr 03/13/21 10:00 03/19/21 09:05 Rocephin/Ns 2 Gm/100 Ml IV 200 mls/hr Q24HR STEPHEN Administration Protocol Fentanyl Citrate 2,000 mcg in 100 mls @ 3.402 mls/hr 03/13/21 17:00 03/18/21 22:09 Fentanyl Drip Premix IV 1 mcg/kg/hr TITR STEPHEN 3.402 mls/hr Administration Protocol 1 MCG/KG/HR NORepinephrine/NS 8 MG-250 ML 8 mg in 250 mls @ 3.75 mls/hr 03/13/21 21:00 03/16/21 18:23 Norepinephrine/Ns 8 Mg-250 Ml (Double Conc) IV 0 mcg/min TITRATE STEPHEN 0 mls/hr Titration Protocol 2 MCG/MIN Vasopressin 20 unit/ Sodium 101 mls @ 9.09 mls/hr 03/14/21 14:00 03/15/21 23:55 Chloride IV 0 units/min TITR STEPHEN 0 mls/hr Titration Protocol 0.03 UNITS/MIN Sodium Chloride 100 mls @ 999 mls/hr 03/15/21 10:00 Nacl 0.9% IV VICKEY PRN Hypotension Phenylephrine HCl 100 mg/ 100 mls @ 3 mls/hr 03/15/21 14:00 Sodium Chloride IV TITR STEPHEN Protocol 50 MCG/MIN Potassium Chloride/Dextrose/Sod Cl 20 meq in 1,000 mls @ 100 mls/hr 03/17/21 10:00 03/19/21 02:44 D5w/0.45% Nacl/Kcl 20 Meq IV 100 mls/hr DIRECT STEPHEN Administration Insulin Human Lispro 0 unit 03/19/21 08:30 03/19/21 09:04 Insulin Lispro 100 Unit/Ml SUB-Q 2 unit Q6HR STEPHEN Administration Protocol Lactulose 20 gm 03/18/21 14:00 03/19/21 09:05 Lactulose 20 Gm/30 Ml Oral Liqd PO 20 gm Q4HR STEPHEN Administration Lansoprazole 30 mg 03/18/21 10:00 03/19/21 09:06 Lansoprazole 30 Mg Solutab FEEDTUBE 30 mg QDAY STEPHEN Administration Metoclopramide HCl 10 mg 03/19/21 10:30 Metoclopramide 10 Mg/2 Ml Inj IV 03/19/21 12:00 ONCE NR Multi-Ingred Cream/Lotion/Oil/Oint 1 applic 03/12/21 20:02 Mineral Oil/Petrolatum, White Ophth Oint 3.5 Gm OU Q4HR PRN Dry Eye(s) Ondansetron HCl 4 mg 03/12/21 21:29 Ondansetron 4 Mg/2 Ml Inj IV Q8H PRN Nausea And Vomiting Senna/Docusate Sodium 1 tab 03/12/21 22:00 03/19/21 09:05 Sennosides/Docusate Sodium 8.6/50 Mg Tab FEEDTUBE 1 tab BID STEPHEN Administration Simple Syrup 15 ml 03/17/21 12:00 Simple Syrup 15 Ml FEEDTUBE PRN PRN Hypoglycemia Simple Syrup 30 ml 03/17/21 12:00 Simple Syrup 15 Ml FEEDTUBE PRN PRN Hypoglycemia Sodium Bicarbonate 325 mg 03/17/21 12:00 Sodium Bicarbonate 325 Mg Tab FEEDTUBE PRN PRN For Clogged Feeding Tube Sodium Chloride 10 ml 03/12/21 22:00 03/19/21 09:07 Sodium Chloride 0.9% 10 Ml Flush Syringe IV 10 ml BID STEPHEN Administration Sodium Chloride 10 ml 03/12/21 21:29 Sodium Chloride 0.9% 10 Ml Flush Syringe IV PRN PRN LINE FLUSH Thiamine HCl 100 mg 03/13/21 10:00 03/19/21 09:06 Thiamine 100 Mg Tab PO 100 mg QDAY STEPHEN Administration
[2021-03-19] MEDS ORDERED: METOCLOPRAMIDE 10 MG/2 ML INJ IV NR (10:30)
--- NOTE | 2021-03-19 13:28 | Progress Note ---
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 Hospital Course to Date: 03/13: Awaiting PCCM, GI, ID input. Ordered CTA chest to rule out PE. Fluids increased due to concern for intravascular depletion. 03/14: Worsening hepatic transaminits, hypoglycemia noted. D/w GI and CCM regarding worsening liver function, likely shock liver. Will attempt [facility] transfer for hepatology services, call placed. Worsening renal function, consult placed to nephrology. 03/15: This morning decision was made by nephrology to initiate hemodialysis. Femoral Vas-Cath placed. Patient remains on Levophed and vasopressin and bicarbonate drip. Despite bicarbonate drip patient was acidotic on ABG and given additional 2 A of bicarb. Added phenyl epi gtt for HD if needed. I updated the daughter today while obtaining consent. 03/16: Patient had CT head today per neurology, supratherapeutic INR of six and given vitamin K and FFP follow, thrombocytopenia noted, patient is off of vasopressors. Metabolic acidosis resolved therefore bicarb drip discontinued. Hemoglobin 5.5 given 2 units PRBC. Potassium and mag repleted. NG tube to low intermittent suction. FiO2 decreased. serial h/h 03/17: Patient remains off vasopressors, fentanyl drip started on low-dose, vent changes per CCM and potassium repleted aggressively. GI okay to start tube feeding. LFTs improving. 03/18: Decrease in tidal volume today per CCM, holding sedation as patient is not responding. PSV today. LFTS better, k and mag repleted, TF at goal. SSI to high dose scale. Severe thrombocytopenia and given platelets today. Updated his daughter today regarding status, PSV trial and plts. She inquired about CTH which showed no acute finding but showed chronic changes which were communicated. 03/19: RONALD overnight. On low dose sedation this am, patient open eyes spontaneously not following any commands. High gastric residual, abdomen still distended, IV reglan added. TF held per protocol. Mild improvement in thrombocytopenia, d/w CCM transfuse if plt less than 20. Assessment and Plan #Acute Hepatic/Metabolic Encephalopathy - On low dose sedation, open eyes sponstaneously this am, not following any commands - Continue sedation for RASS goal 0 to -1 - CT head with no abnormality - Ammonia 72, continue lactulose - Repeat ammonia in th eam - Avoid benzodiazepine to reduce the possibility of delirium - PRN analgesia for CPOT greater than 3 - Maintenance of sleep-wake cycle #CV:Septic Shock #Tachycardia #Hypotension-resolved - SR/ST on the monitor - Off pressors this am - Vassopressors on standby - Maintain adequate perfusion - Continue rehydration with cont. IVF - Continue blood pressure monitor per protocol - Maintain MAP above 65 #Acute Hypoxic Respiratory Failure #COVID Pneumonia - Intubated 03/12 in the ED - Vent Setting: CPAP- 40%,6 PS-10 - This am ABG pending - CCM consulted, appreciate recommendations - Continue IV Steroids and Nebs per CCM - VAP bundle addressed - Aspiration precaution HOB above 30 - Daily SBT and SAT trials as tolerated - Daily ABG and CXR - Continue SPO2 monitoring for SPO2 goal above 92% #GI:Transaminitis #Hyperammonemia #Shock Liver #h/o ESLD 2/2EtOH cirrhosis and hep C with recurrent ascites - ELevated LFTs most likely related to ESLD - MELD NA: 22 - Abdominal ultrasound shows moderate to large volume ascites throughout all 4 quadrants of the abdomen - Ammonia is 72, on Lactulose - GI consulted, appreciate recommendations - Conservative management per GI - Avoid hepatotoxins - Trend LFTs and ammonia level - TF held this am due to high gastric residual per protocol - Reglan Added - Continue PPI - Transfer to [facility] for liver failure was denied #Acute kidney injury most likely ATN- improved #Hypokalemia - Presented with hyperkalemia and Scr. as high as high 2.5 - S/p HD on 03/15, renal function and hyperkalemia improved - Now with hypokalemia on cont. IVF with KCL per Nephro - Nephrology consulted,appreciate recommendation - Strict intake and output - Avoid nephrotoxic medications; Renally dose medications - Continue IVF Per Nephro - Monitor and replace electrolytes as needed - Trend BMP, mag, & phos #ID: Septic Shock #COVID Pneumonia #Possible Spontaneous Bacterial Peritonitis(SBP) #Leukocytosis - COVID swab positive - Imagings with bilateral pulmonary opacities - Blood cultures and sputum culture were negative - ID on consult - Continue IV Abx until today per ID - X1 dose of Remdesevir, held due to renal function. Patient not candidate for Actemra - WBCs elevated, afebrile- On IV steroids - Daily CBC monitor #Heme:Severe Thrombocytopenia #Microcytic Anemia #Supratherapeutic INR- resolved - Plt dropped as low as 13, s/p 1unit of Platelets on 03/18 - Plt with mild improvement this am, 24 - H&H remains stable, s/p 2units of PRBCs - CTA chest negative for pulmonary embolism - s/p vit K and 1 unit of FFP for high INR - Continue to trend INR - Transfuse platelets for plt less than 20 - Transfuse hemoglobin less than 7 - Monitor for s/s of bleeding - AC on hold - SCD to bilateral lower extremities while in bed - Trend CBC #Endo:Hyperglycemia #Hypoglycemia-resolved - Initially hypoglycemia now Hyperglycemia - Low SSI added Q6hrs - Continue BG check Q6hrs - Avoid Hypoglycemia - Hypoglycemic protocol The high probability of a clinically significant, sudden or life threatening deterioration of the [multi] system(s) required my full and direct attention, intervention and personal management. The aggregate critical care time was [60] minutes. This time is in addition to time spent performing reported procedures but includes the following: [x] Data Review and interpretation [x] Patient assessment and monitoring of vital signs [x] Documentation [x] Medication orders and management Disposition Plan: ICU Total Time Spent with Patient (Minutes): 60 History Interval history: Patient seen and examined at the bedside. Intubated and on low dose fentanyl gtt. Open eyes spontaneously but does not follow commands. TF on hold this am due to high residual. RONALD overnight Hospitalist Physical - Constitutional Vitals: Temp Pulse Resp BP Pulse Ox 99.1 F 117 H 21 145/96 95 03/19/21 12:00 03/19/21 13:00 03/19/21 13:00 03/19/21 13:00 03/19/21 13:00 General appearance: Present: no acute distress, cachectic, other (On the vent) - EENT Eyes: Present: PERRL - Respiratory Respiratory effort: normal Respiratory: bilateral: rhonchi - Cardiovascular Rhythm: regular Heart Sounds: Present: S1 & S2 - Extremities Extremities: no ischemia, pulses intact, pulses symmetrical Peripheral Pulses: within normal limits - Abdominal General gastrointestinal: soft, distended, normal bowel sounds - Integumentary Integumentary: Present: warm, dry - Psychiatric Psychiatric: other (JM) - Neurologic Neurologic: other (Open eyes spontaneously, +gag/cough. Does not follow any commands) HEART Score - HEART Score Troponin: Troponin T < 0.010 ng/mL (0.00-0.029) 03/12/21 18:54 Results - Labs CBC & Chem 7: 03/19/21 04:00 03/19/21 04:00 Labs: Laboratory Last Values WBC 16.0 K/mm3 (4.5-11.0) H 03/19/21 04:00 RBC 4.09 M/mm3 (3.65-5.03) 03/19/21 04:00 Hgb 9.9 gm/dl (11.8-15.2) L 03/19/21 04:00 Hct 32.8 % (35.5-45.6) L 03/19/21 04:00 MCV 80 fl (84-94) L 03/19/21 04:00 MCH 24 pg (28-32) L 03/19/21 04:00 MCHC 30 % (32-34) L 03/19/21 04:00 RDW 27.6 % (13.2-15.2) H 03/19/21 04:00 Plt Count 24 K/mm3 (140-440) L 03/19/21 04:00 Add Manual Diff Complete 03/14/21 05:34 Total Counted 100 03/14/21 05:34 Seg Neutrophils % [place] 03/14/21 05:34 Seg Neuts % (Manual) 72.0 % (40.0-70.0) H 03/14/21 05:34 Band Neutrophils % 16.0 % 03/14/21 05:34 Lymphocytes % (Manual) 5.0 % (13.4-35.0) L 03/14/21 05:34 Reactive Lymphs % (Man) 0 % 03/14/21 05:34 Monocytes % (Manual) 4.0 % (0.0-7.3) 03/14/21 05:34 Eosinophils % (Manual) 0 % (0.0-4.3) 03/14/21 05:34 Basophils % (Manual) 0 % (0.0-1.8) 03/14/21 05:34 Metamyelocytes % 1.0 % 03/14/21 05:34 Myelocytes % 2.0 % 03/14/21 05:34 Promyelocytes % 0 % 03/14/21 05:34 Blast Cells % 0 % 03/14/21 05:34 Nucleated RBC % 7.0 % (0.0-0.9) H 03/14/21 05:34 Seg Neutrophils # Man 12.2 K/mm3 (1.8-7.7) H 03/14/21 05:34 Band Neutrophils # 2.7 K/mm3 03/14/21 05:34 Lymphocytes # (Manual) 0.8 K/mm3 (1.2-5.4) L 03/14/21 05:34 Abs React Lymphs (Man) 0.0 K/mm3 03/14/21 05:34 Monocytes # (Manual) 0.7 K/mm3 (0.0-0.8) 03/14/21 05:34 Eosinophils # (Manual) 0.0 K/mm3 (0.0-0.4) 03/14/21 05:34 Basophils # (Manual) 0.0 K/mm3 (0.0-0.1) 03/14/21 05:34 Metamyelocytes # 0.2 K/mm3 03/14/21 05:34 Myelocytes # 0.3 K/mm3 03/14/21 05:34 Promyelocytes # 0.0 K/mm3 03/14/21 05:34 Blast Cells # 0.0 K/mm3 03/14/21 05:34 Pathologist Review 03/14/21 05:34 WBC Morphology Not Reportable 03/14/21 05:34 Hypersegmented Neuts Not Reportable 03/14/21 05:34 Hyposegmented Neuts Not Reportable 03/14/21 05:34 Hypogranular Neuts Not Reportable 03/14/21 05:34 Smudge Cells Not Reportable 03/14/21 05:34 Toxic Granulation 1+ 03/14/21 05:34 Toxic Vacuolation Not Reportable 03/14/21 05:34 Dohle Bodies Not Reportable 03/14/21 05:34 Pelger-Huet Anomaly Not Reportable 03/14/21 05:34 Saqib Rods Not Reportable 03/14/21 05:34 Platelet Estimate Consistent w auto 03/14/21 05:34 Clumped Platelets [place] 03/14/21 05:34 Plt Clumps, EDTA Not Reportable 03/14/21 05:34 Large Platelets Few 03/14/21 05:34 Giant Platelets Not Reportable 03/14/21 05:34 Platelet Satelliting Not Reportable 03/14/21 05:34 Plt Morphology Comment Not Reportable 03/14/21 05:34 RBC Morphology Not Reportable 03/14/21 05:34 Dimorphic RBCs Not Reportable 03/14/21 05:34 Polychromasia 1+ 03/14/21 05:34 Hypochromasia 2+ 03/14/21 05:34 Poikilocytosis Not Reportable 03/14/21 05:34 Anisocytosis 2+ 03/14/21 05:34 Microcytosis 1+ 03/14/21 05:34 Macrocytosis Not Reportable 03/14/21 05:34 Spherocytes Not Reportable 03/14/21 05:34 Pappenheimer Bodies Not Reportable 03/14/21 05:34 Sickle Cells Not Reportable 03/14/21 05:34 Target Cells 1+ 03/14/21 05:34 Tear Drop Cells Not Reportable 03/14/21 05:34 Ovalocytes Not Reportable 03/14/21 05:34 Helmet Cells Not Reportable 03/14/21 05:34 [place] Bodies Not Reportable 03/14/21 05:34 [place] Rings Not Reportable 03/14/21 05:34 [place] Cells 1+ 03/14/21 05:34 Bite Cells Not Reportable 03/14/21 05:34 Crenated Cell Not Reportable 03/14/21 05:34 Elliptocytes Not Reportable 03/14/21 05:34 Acanthocytes (Spur) Not Reportable 03/14/21 05:34 Rouleaux Not Reportable 03/14/21 05:34 Hemoglobin C Crystals Not Reportable 03/14/21 05:34 Schistocytes Not Reportable 03/14/21 05:34 Malaria parasites Not Reportable 03/14/21 05:34 Wolf Bodies Not Reportable 03/14/21 05:34 Hem Pathologist Commnt Sent to pathology 03/14/21 05:34 PT 23.6 Sec. (12.2-14.9) H 03/19/21 04:00 INR 1.91 (0.87-1.13) H 03/19/21 04:00 APTT 38.7 Sec. (24.2-36.6) H 03/12/21 18:54 D-Dimer > 31779 ng/mlDDU (0-234) H 03/19/21 04:00 ABG pH 7.534 (7.320-7.450) H 03/18/21 04:14 POC ABG pCO2 38.3 mmHg (32.0-48.0) 03/18/21 04:14 ABG pCO2 21.2 mm Hg 03/15/21 03:42 POC ABG pO2 73.1 mmHg (83-108) L 03/18/21 04:14 ABG pO2 90.7 mm Hg (80.0-90.0) H 03/15/21 03:42 POC ABG HCO3 31.6 03/18/21 04:14 ABG HCO3 6.2 mmol/L (20.0-26.0) L 03/15/21 03:42 ABG O2 Saturation 94.5 (0-100) 03/18/21 04:14 ABG O2 Content 11.6 (0.0-44) 03/15/21 03:42 POC ABG Base Excess 8.4 03/18/21 04:14 ABG Base Excess -21.8 mmol/L (-2.0-3.0) L 03/15/21 03:42 ABG Hemoglobin 10.1 (12.0-17.5) L 03/18/21 04:14 ABG Oxyhemoglobin 93.6 (94-98) L 03/18/21 04:14 ABG Carboxyhemoglobin 1.5 % (0.0-5.0) 03/15/21 03:42 ABG Methemoglobin 0.3 (0.0-1.5) 03/18/21 04:14 ABG Sodium 140.2 mmol/L (136.0-145.0) 03/18/21 04:14 ABG Potassium 3.3 mmol/L (3.40-4.50) L 03/18/21 04:14 ABG Chloride 102.0 mmol/L (98-107) 03/18/21 04:14 ABG Glucose 193 mg/dL (65-95) H 03/18/21 04:14 Oxyhemoglobin 90.8 % (95.0-99.0) L 03/15/21 03:42 Carboxyhemoglobin 0.7 (0.5-1.5) 03/18/21 04:14 FiO2 50 % 03/15/21 03:42 FiO2 % 40.0 03/18/21 04:14 Sodium 146 mmol/L (137-145) H 03/19/21 04:00 Potassium 3.6 mmol/L (3.6-5.0) 03/19/21 04:00 Chloride 107.4 mmol/L (98-107) H 03/19/21 04:00 Carbon Dioxide 31 mmol/L (22-30) H 03/19/21 04:00 Anion Gap 11 mmol/L 03/19/21 04:00 BUN 42 mg/dL (9-20) H 03/19/21 04:00 Creatinine 0.6 mg/dL (0.8-1.3) L 03/19/21 04:00 Estimated GFR > 60 ml/min 03/19/21 04:00 BUN/Creatinine Ratio 70 % 03/19/21 04:00 Glucose 230 mg/dL (75-100) H 03/19/21 04:00 POC Glucose 198 mg/dL (70-105) H 03/19/21 11:28 Calcium 8.3 mg/dL (8.4-10.2) L 03/19/21 04:00 Phosphorus 3.20 mg/dL (2.5-4.5) 03/16/21 06:30 Magnesium 2.50 mg/dL (1.7-2.3) H 03/19/21 04:00 Ferritin 730.0 ng/mL (30.0-300.0) H 03/19/21 04:00 Total Bilirubin 7.40 mg/dL (0.1-1.2) H 03/19/21 04:00 AST 354 units/L (5-40) H 03/19/21 04:00 ALT 221 units/L (7-56) H 03/19/21 04:00 Alkaline Phosphatase 154 units/L (35-129) H 03/19/21 04:00 Ammonia 72.0 umol/L (25-60) H 03/12/21 18:54 Lactate Dehydrogenase 915 units/L (91-180) H 03/19/21 04:00 Troponin T < 0.010 ng/mL (0.00-0.029) 03/12/21 18:54 C-Reactive Protein 4.30 mg/dL (0.00-1.30) H 03/19/21 04:00 NT-Pro-B Natriuret Pep 1838 pg/mL (0-900) H 03/12/21 18:54 Total Protein 5.8 g/dL (6.3-8.2) L 03/19/21 04:00 Albumin 2.1 g/dL (3.9-5) L 03/19/21 04:00 Albumin/Globulin Ratio 0.6 % 03/19/21 04:00 Procalcitonin 8.67 ng/mL (<0.15) 03/12/21 19:04 Arterial Blood Glucose 193 mg/dL (65-95) H 03/18/21 04:14 Arterial Blood Ionized Calcium 4.4 mg/dL (4.6-5.3) L 03/18/21 04:14 Random Vancomycin 5.6 ug/mL (0-40.0) 03/16/21 06:30 Coronavirus (PCR) Positive (Negative) A 03/13/21 Unknown Hepatitis A IgM Ab Non-reactive (NonReactive) 03/14/21 05:34 Hep Bs Antigen Nonreactive (Negative) 03/14/21 05:34 Hep B Core IgM Ab Non-reactive (NonReactive) 03/14/21 05:34 Hepatitis C Antibody Reactive (NonReactive) A 03/14/21 05:34 Blood Type B POSITIVE 03/16/21 08:00 Antibody Screen Negative 03/16/21 08:00 Crossmatch See Detail 03/16/21 08:00 [place]/IV: Voiding Method Indwelling Catheter Active Medications - Current Medications Current Medications: Generic Name Dose Route Start Last Admin Trade Name Freq PRN Reason Stop Dose Admin Albuterol 2.5 mg 03/12/21 21:29 Albuterol 2.5 Mg/3 Ml Nebu IH Q4HRT PRN Shortness Of Breath Lipase/Protease/Amylase 1 each 03/17/21 12:00 Lipase 10,500/Protease 25,000/Amylase 43,750 (Units) Dr Cap FEEDTUBE PRN PRN For Clogged Feeding Tube Dexamethasone 6 mg 03/13/21 10:00 03/19/21 09:05 Dexamethasone 4 Mg/Ml Vial IV 03/22/21 10:01 6 mg DAILY STEPHEN Administration Dextrose 0 ml 03/15/21 10:00 03/17/21 00:48 Dextrose 50% In Water (25gm) 50 Ml Syringe IV 20 ml Q30MIN PRN Administration Hypoglycemia Protocol Fentanyl 50 mcg 03/13/21 16:03 03/17/21 11:43 Fentanyl 100 Mcg/2 Ml Inj IV 50 mcg Q10MIN PRN Administration ANALGESIA Ferrous Sulfate 300 mg 03/13/21 10:00 03/19/21 09:05 Ferrous Sulfate 300 Mg (60mg Elemental Iron) / 5 Ml Oral Liqd PO 300 mg BID STEPHEN Administration Folic Acid 1 mg 03/13/21 10:00 03/19/21 09:06 Folic Acid 1 Mg Tab PO 1 mg QDAY STEPHEN Administration Hydrophilic Ointment 1 applic 03/12/21 20:02 Lip Therapy Vaseline TP Q2HR PRN Dry Lips Ceftriaxone Sodium 2 gm in 100 mls @ 200 mls/hr 03/13/21 10:00 03/19/21 09:05 Rocephin/Ns 2 Gm/100 Ml IV 200 mls/hr Q24HR STEPHEN Administration Protocol Fentanyl Citrate 2,000 mcg in 100 mls @ 3.402 mls/hr 03/13/21 17:00 03/19/21 12:29 Fentanyl Drip Premix IV 0 mcg/kg/hr TITR STEPHEN 0 mls/hr Titration Protocol 1 MCG/KG/HR NORepinephrine/NS 8 MG-250 ML 8 mg in 250 mls @ 3.75 mls/hr 03/13/21 21:00 03/16/21 18:23 Norepinephrine/Ns 8 Mg-250 Ml (Double Conc) IV 0 mcg/min TITRATE STEPHEN 0 mls/hr Titration Protocol 2 MCG/MIN Vasopressin 20 unit/ Sodium 101 mls @ 9.09 mls/hr 03/14/21 14:00 03/15/21 23:55 Chloride IV 0 units/min TITR STEPHEN 0 mls/hr Titration Protocol 0.03 UNITS/MIN Sodium Chloride 100 mls @ 999 mls/hr 03/15/21 10:00 Nacl 0.9% IV VICKEY PRN Hypotension Phenylephrine HCl 100 mg/ 100 mls @ 3 mls/hr 03/15/21 14:00 Sodium Chloride IV TITR STEPHEN Protocol 50 MCG/MIN Potassium Chloride/Dextrose/Sod Cl 20 meq in 1,000 mls @ 100 mls/hr 03/17/21 10:00 03/19/21 12:27 D5w/0.45% Nacl/Kcl 20 Meq IV 100 mls/hr DIRECT STEPHEN Administration Insulin Human Lispro 0 unit 03/19/21 08:30 03/19/21 11:52 Insulin Lispro 100 Unit/Ml SUB-Q 1 unit Q6HR STEPHEN Administration Protocol Lactulose 20 gm 03/18/21 14:00 03/19/21 09:05 Lactulose 20 Gm/30 Ml Oral Liqd PO 20 gm Q4HR STEPHEN Administration Lansoprazole 30 mg 03/18/21 10:00 03/19/21 09:06 Lansoprazole 30 Mg Solutab FEEDTUBE 30 mg QDAY STEPHEN Administration Multi-Ingred Cream/Lotion/Oil/Oint 1 applic 03/12/21 20:02 Mineral Oil/Petrolatum, White Ophth Oint 3.5 Gm OU Q4HR PRN Dry Eye(s) Ondansetron HCl 4 mg 03/12/21 21:29 Ondansetron 4 Mg/2 Ml Inj IV Q8H PRN Nausea And Vomiting Senna/Docusate Sodium 1 tab 03/12/21 22:00 03/19/21 09:05 Sennosides/Docusate Sodium 8.6/50 Mg Tab FEEDTUBE 1 tab BID STEPHEN Administration Simple Syrup 15 ml 03/17/21 12:00 Simple Syrup 15 Ml FEEDTUBE PRN PRN Hypoglycemia Simple Syrup 30 ml 03/17/21 12:00 Simple Syrup 15 Ml FEEDTUBE PRN PRN Hypoglycemia Sodium Bicarbonate 325 mg 03/17/21 12:00 Sodium Bicarbonate 325 Mg Tab FEEDTUBE PRN PRN For Clogged Feeding Tube Sodium Chloride 10 ml 03/12/21 22:00 03/19/21 09:07 Sodium Chloride 0.9% 10 Ml Flush Syringe IV 10 ml BID STEPHEN Administration Sodium Chloride 10 ml 03/12/21 21:29 Sodium Chloride 0.9% 10 Ml Flush Syringe IV PRN PRN LINE FLUSH Thiamine HCl 100 mg 03/13/21 10:00 03/19/21 09:06 Thiamine 100 Mg Tab PO 100 mg QDAY STEPHEN Administration Nutrition/Malnutrition Assess - Dietary Evaluation Nutrition/Malnutrition Findings: Nutrition Notes Start: 03/13/21 17 :20 Freq: Status: Active Protocol: Document 03/19/21 13:04 THOR (Rec: 03/19/21 13:09 THOR [id number]) Nutrition Notes Initial or Follow up Reassessment Current Diagnosis Acute Kidney Injury, Respiratory Failure Other Pertinent Diagnosis COVID-19 pneu, ESLD, Anemia, Ascites, Hep C Current Diet TF - Vital AF 1.2 at 60ml/hr Labs/Tests Na 146 BUN 42 BG 230 Mg 2.5 Elevated LFTs Pertinent Medications Lactulose Height 5 ft 11 in Weight 61.2 kg [place] Body Weight (kg) 78.18 BMI 18.8 Weight Status Underweight Subjective/Other Information RN reports high gastric residuals this am (>250ml). TF on hold; one dose of Reglan administered this am. Pt remains on vent support. Burn Absent Trauma Absent Minimum of two criteria No #1 Nutrition Diagnosis Inadequate oral intake Diagnosis Progress(for reassessment Continues documentation) Is patient on ventilator? Yes Is Patient Ambulatory and/or Out of Bed No REE-([facility]-confined to bed) 1708.452 Kcal/Kg value to use for calculation 30 Approximate Energy Requirements Using 1836 kcal/Kg Calculation Used for Recommendations Kcal/kg Additional Notes Pro needs 1.2-2g/k-122g/ day Fluid needs 1ml/kcal Nutrition Intervention Nutrition Support: Resume TF when medically feasible Goal #1 Resume TF to meet nutrient needs Follow-Up By: 03/20/21 Additional Comments F/U: TF restart/tolerance <JOSIE HESS - Last Filed: 03/24/21 12:43> Assessment and Plan Assessment and plan: I saw and evaluated the patient. Discussed with the nurse practitioner and agree with their findings and plan as documented in this note. Hospitalist Physical - Constitutional Vitals: Temp Pulse Resp BP Pulse Ox 97.4 F L 130 H 0 L 52/38 0 L 03/22/21 23:42 03/23/21 01:45 03/23/21 02:01 03/23/21 02:01 03/23/21 02:10 HEART Score - HEART Score Troponin: Troponin T < 0.010 ng/mL (0.00-0.029) 03/12/21 18:54 Results - Labs CBC & Chem 7: 03/22/21 04:00 03/22/21 23:20 Labs: Laboratory Last Values WBC 18.8 K/mm3 (4.5-11.0) H 03/22/21 04:00 RBC 3.97 M/mm3 (3.65-5.03) 03/22/21 04:00 Hgb 9.8 gm/dl (11.8-15.2) L 03/22/21 04:00 Hct 34.0 % (35.5-45.6) L 03/22/21 04:00 MCV 86 fl (84-94) 03/22/21 04:00 MCH 25 pg (28-32) L 03/22/21 04:00 MCHC 29 % (32-34) L 03/22/21 04:00 RDW 29.6 % (13.2-15.2) H 03/22/21 04:00 Plt Count 26 K/mm3 (140-440) L D 03/22/21 04:00 Add Manual Diff Complete 03/14/21 05:34 Total Counted 100 03/14/21 05:34 Seg Neutrophils % [place] 03/14/21 05:34 Seg Neuts % (Manual) 72.0 % (40.0-70.0) H 03/14/21 05:34 Band Neutrophils % 16.0 % 03/14/21 05:34 Lymphocytes % (Manual) 5.0 % (13.4-35.0) L 03/14/21 05:34 Reactive Lymphs % (Man) 0 % 03/14/21 05:34 Monocytes % (Manual) 4.0 % (0.0-7.3) 03/14/21 05:34 Eosinophils % (Manual) 0 % (0.0-4.3) 03/14/21 05:34 Basophils % (Manual) 0 % (0.0-1.8) 03/14/21 05:34 Metamyelocytes % 1.0 % 03/14/21 05:34 Myelocytes % 2.0 % 03/14/21 05:34 Promyelocytes % 0 % 03/14/21 05:34 Blast Cells % 0 % 03/14/21 05:34 Nucleated RBC % 7.0 % (0.0-0.9) H 03/14/21 05:34 Seg Neutrophils # Man 12.2 K/mm3 (1.8-7.7) H 03/14/21 05:34 Band Neutrophils # 2.7 K/mm3 03/14/21 05:34 Lymphocytes # (Manual) 0.8 K/mm3 (1.2-5.4) L 03/14/21 05:34 Abs React Lymphs (Man) 0.0 K/mm3 03/14/21 05:34 Monocytes # (Manual) 0.7 K/mm3 (0.0-0.8) 03/14/21 05:34 Eosinophils # (Manual) 0.0 K/mm3 (0.0-0.4) 03/14/21 05:34 Basophils # (Manual) 0.0 K/mm3 (0.0-0.1) 03/14/21 05:34 Metamyelocytes # 0.2 K/mm3 03/14/21 05:34 Myelocytes # 0.3 K/mm3 03/14/21 05:34 Promyelocytes # 0.0 K/mm3 03/14/21 05:34 Blast Cells # 0.0 K/mm3 03/14/21 05:34 Pathologist Review 03/14/21 05:34 WBC Morphology Not Reportable 03/14/21 05:34 Hypersegmented Neuts Not Reportable 03/14/21 05:34 Hyposegmented Neuts Not Reportable 03/14/21 05:34 Hypogranular Neuts Not Reportable 03/14/21 05:34 Smudge Cells Not Reportable 03/14/21 05:34 Toxic Granulation 1+ 03/14/21 05:34 Toxic Vacuolation Not Reportable 03/14/21 05:34 Dohle Bodies Not Reportable 03/14/21 05:34 Pel[place]uet Anomaly Not Reportable 03/14/21 05:34 Saqib Rods Not Reportable 03/14/21 05:34 Platelet Estimate Consistent w auto 03/14/21 05:34 Clumped Platelets [place] 03/14/21 05:34 Plt Clumps, EDTA Not Reportable 03/14/21 05:34 Large Platelets Few 03/14/21 05:34 Giant Platelets Not Reportable 03/14/21 05:34 Platelet Satelliting Not Reportable 03/14/21 05:34 Plt Morphology Comment Not Reportable 03/14/21 05:34 RBC Morphology Not Reportable 03/14/21 05:34 Dimorphic RBCs Not Reportable 03/14/21 05:34 Polychromasia 1+ 03/14/21 05:34 Hypochromasia 2+ 03/14/21 05:34 Poikilocytosis Not Reportable 03/14/21 05:34 Anisocytosis 2+ 03/14/21 05:34 Microcytosis 1+ 03/14/21 05:34 Macrocytosis Not Reportable 03/14/21 05:34 Spherocytes Not Reportable 03/14/21 05:34 Pappenheimer Bodies Not Reportable 03/14/21 05:34 Sickle Cells Not Reportable 03/14/21 05:34 Target Cells 1+ 03/14/21 05:34 Tear Drop Cells Not Reportable 03/14/21 05:34 Ovalocytes Not Reportable 03/14/21 05:34 Helmet Cells Not Reportable 03/14/21 05:34 [place] Bodies Not Reportable 03/14/21 05:34 [place] Rings Not Reportable 03/14/21 05:34 [place] Cells 1+ 03/14/21 05:34 Bite Cells Not Reportable 03/14/21 05:34 Crenated Cell Not Reportable 03/14/21 05:34 Elliptocytes Not Reportable 03/14/21 05:34 Acanthocytes (Spur) Not Reportable 03/14/21 05:34 Rouleaux Not Reportable 03/14/21 05:34 Hemoglobin C Crystals Not Reportable 03/14/21 05:34 Schistocytes Not Reportable 03/14/21 05:34 [place]aria parasites Not Reportable 03/14/21 05:34 Wolf Bodies Not Reportable 03/14/21 05:34 Hem Pathologist Commnt Sent to pathology 03/14/21 05:34 PT 23.6 Sec. (12.2-14.9) H 03/19/21 04:00 INR 1.91 (0.87-1.13) H 03/19/21 04:00 APTT 38.7 Sec. (24.2-36.6) H 03/12/21 18:54 D-Dimer > 25879 ng/mlDDU (0-234) H 03/21/21 Unknown ABG pH 7.093 pH Units (7.350-7.450) L* 03/23/21 01:40 POC ABG pCO2 38.3 mmHg (32.0-48.0) 03/18/21 04:14 ABG pCO2 71.1 mm Hg 03/23/21 01:40 POC ABG pO2 73.1 mmHg (83-108) L 03/18/21 04:14 ABG pO2 28.4 mm Hg (80.0-90.0) L* 03/23/21 01:40 POC ABG HCO3 31.6 03/18/21 04:14 ABG HCO3 21.2 mmol/L (20.0-26.0) 03/23/21 01:40 ABG O2 Saturation 26.3 % (95.0-99.0) L 03/23/21 01:40 ABG O2 Content 3.5 (0.0-44) 03/23/21 01:40 POC ABG Base Excess 8.4 03/18/21 04:14 ABG Base Excess -8.8 mmol/L (-2.0-3.0) L 03/23/21 01:40 ABG Hemoglobin 9.6 gm/dl (14.0-18.0) L 03/23/21 01:40 ABG Oxyhemoglobin 93.6 (94-98) L 03/18/21 04:14 ABG Carboxyhemoglobin 1.4 % (0.0-5.0) 03/23/21 01:40 ABG Methemoglobin 0.9 % (0.0-1.5) 03/23/21 01:40 ABG Sodium 140.2 mmol/L (136.0-145.0) 03/18/21 04:14 ABG Potassium 3.3 mmol/L (3.40-4.50) L 03/18/21 04:14 ABG Chloride 102.0 mmol/L (98-107) 03/18/21 04:14 ABG Glucose 193 mg/dL (65-95) H 03/18/21 04:14 Oxyhemoglobin 25.7 % (95.0-99.0) L 03/23/21 01:40 Carboxyhemoglobin 0.7 (0.5-1.5) 03/18/21 04:14 FiO2 100 % 03/23/21 01:40 FiO2 % 40.0 03/18/21 04:14 Sodium 145 mmol/L (137-145) 03/22/21 04:00 Potassium 5.1 mmol/L (3.6-5.0) H 03/22/21 04:00 Chloride 104.8 mmol/L (98-107) 03/22/21 04:00 Carbon Dioxide 18 mmol/L (22-30) L 03/22/21 04:00 Anion Gap 27 mmol/L 03/22/21 04:00 BUN 73 mg/dL (9-20) H 03/22/21 04:00 Creatinine 1.2 mg/dL (0.8-1.3) D 03/22/21 04:00 Estimated GFR > 60 ml/min 03/22/21 04:00 BUN/Creatinine Ratio 61 % 03/22/21 04:00 Glucose 150 mg/dL (75-100) H 03/22/21 23:20 POC Glucose 120 mg/dL (70-105) H 03/23/21 01:33 Calcium 9.2 mg/dL (8.4-10.2) 03/22/21 04:00 Phosphorus 3.50 mg/dL (2.5-4.5) 03/20/21 05:48 Magnesium 2.20 mg/dL (1.7-2.3) 03/20/21 05:48 Ferritin 443.8 ng/mL (30.0-300.0) H 03/21/21 Unknown Total Bilirubin 14.00 mg/dL (0.1-1.2) H 03/22/21 04:00 AST 146 units/L (5-40) H 03/22/21 04:00 ALT 132 units/L (7-56) H 03/22/21 04:00 Alkaline Phosphatase 108 units/L (35-129) 03/22/21 04:00 Ammonia 27.0 umol/L (25-60) 03/20/21 05:48 Lactate Dehydrogenase 693 units/L (91-180) H 03/21/21 Unknown Troponin T < 0.010 ng/mL (0.00-0.029) 03/12/21 18:54 C-Reactive Protein 5.00 mg/dL (0.00-1.30) H 03/21/21 Unknown NT-Pro-B Natriuret Pep 1838 pg/mL (0-900) H 03/12/21 18:54 Total Protein 5.2 g/dL (6.3-8.2) L 03/22/21 04:00 Albumin 1.8 g/dL (3.9-5) L 03/22/21 04:00 Albumin/Globulin Ratio 0.5 % 03/22/21 04:00 Procalcitonin 11.74 ng/mL (<0.15) 03/21/21 10:46 Arterial Blood Glucose 193 mg/dL (65-95) H 03/18/21 04:14 Arterial Blood Ionized Calcium 4.4 mg/dL (4.6-5.3) L 03/18/21 04:14 Urine Color Sabrina (Yellow) 03/21/21 10:20 Urine Turbidity Cloudy (Clear) 03/21/21 10:20 Urine pH 5.0 (5.0-7.0) 03/21/21 10:20 Ur Specific [place] 1.019 (1.003-1.030) 03/21/21 10:20 Urine Protein 30 mg/dl mg/dL (Negative) 03/21/21 10:20 Urine Glucose (UA) Neg mg/dL (Negative) 03/21/21 10:20 Urine Ketones Neg mg/dL (Negative) 03/21/21 10:20 Urine Blood Mod (Negative) 03/21/21 10:20 Urine Nitrite Neg (Negative) 03/21/21 10:20 Urine Bilirubin Sm (Negative) 03/21/21 10:20 Urine Ictotest Positive (Negative) 03/21/21 10:20 Urine Urobilinogen 2.0 mg/dL (<2.0) 03/21/21 10:20 Ur Leukocyte Esterase Neg (Negative) 03/21/21 10:20 Urine WBC (Auto) 24.0 /HPF (0.0-6.0) H 03/21/21 10:20 Urine RBC (Auto) 8.0 /HPF (0.0-6.0) 03/21/21 10:20 U Epithel Cells (Auto) 3.0 /HPF (0-13.0) 03/21/21 10:20 Hyaline Casts 1 /LPF 03/21/21 10:20 Granular Casts 9 /LPF 03/21/21 10:20 Urine Mucus Few /HPF 03/21/21 10:20 Fluid Type Paracentesis 03/21/21 13:30 Fluid Color Yellow 03/21/21 13:30 Fluid Appearance Hazy 03/21/21 13:30 Fluid WBC 15 /mm3 03/21/21 13:30 Fluid RBC 221 /mm3 03/21/21 13:30 Fluid Seg Neutrophils 50.0 % 03/21/21 13:30 Fluid Lymphocytes 35.0 % 03/21/21 13:30 Fluid Monocytes 15.0 % 03/21/21 13:30 Random Vancomycin 5.6 ug/mL (0-40.0) 03/16/21 06:30 Coronavirus (PCR) Positive (Negative) A 03/13/21 Unknown Hepatitis A IgM Ab Non-reactive (NonReactive) 03/14/21 05:34 Hep Bs Antigen Nonreactive (Negative) 03/14/21 05:34 Hep B Core IgM Ab Non-reactive (NonReactive) 03/14/21 05:34 Hepatitis C Antibody Reactive (NonReactive) A 03/14/21 05:34 Blood Type B POSITIVE 03/16/21 08:00 Antibody Screen Negative 03/16/21 08:00 Crossmatch See Detail 03/16/21 08:00 Microbiology: Microbiology 03/21/21 13:30 Ascities Fluid Body Fluid Culture - Preliminary 03/21/21 10:46 Peripheral/Venous Blood Culture - Preliminary NO GROWTH AFTER 72 HOURS 03/21/21 10:46 Peripheral/Venous Blood Culture - Preliminary NO GROWTH AFTER 72 HOURS 03/21/21 13:40 Tracheal Aspirate Sputum Culture - Final 03/21/21 10:20 Urine,Clean Catch Urine Culture - Final NO GROWTH AFTER 48 HOURS [place]/IV: Voiding Method Indwelling Catheter Nutrition/Malnutrition Assess - Dietary Evaluation Nutrition/Malnutrition Findings: Nutrition Notes Start: 03/13/21 17:20 Freq: Status: Discharge Protocol: Document 03/21/21 14:19 GERALD (Rec: 03/21/21 14:47 GERALD [id number]) Nutrition Notes Initial or Follow up Brief Note Current Diet TF remains on hold. Height 5 ft 11 in Weight 61.2 kg [place] Body Weight (kg) 78.18 BMI 18.8 Weight change and time frame No body weight change reported . Weight Status Underweight Subjective/Other Information RD consult on TF resume and tolerance. TF remains on hold. Pt continues on Mechanical Ventilation. As per MD, discussion with family regarding Trach and PEG due to mental satus and poor prognosis. TF resumed 9:30 03/20 @ 20 ml/ hr. TF stopped 02:50 03/21, stomach distended and labored breathing, 250 ml residuals. Incident with necrotic fingers on 03/20. Percent of energy/protein needs met: TF remains on hold. Nutrition Intervention Follow-Up By: 03/23/21 Additional Comments F/U: TF restart/tolerance
--- NOTE | 2021-03-19 15:29 | Progress Note ---
Assessment and Plan Cultures: SARS CoV2 PCR: Positive as outpatient 03/12/2021 blood culture: no growth 03/12/2021 tracheal aspirate culture: usual resp isaak A/P: 65-year-old male with hepatic cirrhosis, chronic hepatitis C, anemia, ascites, recent hospitalization due to worsening ascites, underwent paracentesis with removal of 13 L of fluid, now with: #Septic shock: from COVID, also ?SBP which couldn't be evaluated, hence treated empirically with ceftriaxone. Initial labs showed significant leukocytosis of 15.4, D-dimer greater than 10K, procalcitonin 8.67, CRP 10.8, LDH 287, ferritin 414, ammonia 72. Ferritin next day worsened to 6545, AST increased to 4019, ALT 501. Required multiple pressors. Remdesivir held. Not a candidate for Actemra. #Bilateral pneumonia: secondary to COVID-19. On steroids. #Acute thrombocytopenia: severe. #Right pleural effusion, ascites #Acute hypoxic respiratory failure: on the vent #Acute renal failure, acidosis: nephrology on board. #Hepatic cirrhosis with ascites, chronic hepatitis C: genotype 1a. Prior treatment status unknown. #Acute hepatic failure Recs: -continue IV/PO Dexamethasone x 10 days -ceftriaxone D7, stop after today's dose -extremely poor prognosis Jhony Nickerson MD, FACP, [facility] O: [phone] F: [phone] Subjective Date of service: 03/19/21 Principal diagnosis: Liver, anemia Interval history: No fever. Remains on the vent. Thrombocytopenic. Remains off pressors. Objective - Exam Narrative Exam: Physical Exam (reviewed in chart to minimize risk of transmission) Constitutional: deferred Head, Ears, Nose: deferred Eyes: deferred Neck: deferred Oral: deferred Cardiovascular: deferred Respiratory: deferred GI: deferred Musculoskeletal: deferred Skin: deferred Hem/Lymphatic: deferred Psych: deferred Neurological: deferred - Constitutional Vitals: Vital Signs Temp Pulse Resp BP Pulse Ox 99.1 F 117 H 21 145/96 95 03/19/21 12:00 03/19/21 13:00 03/19/21 13:00 03/19/21 13:00 03/19/21 13:00 Temperature -Last 24 Hours Temperature 99.1 F Temperature 99.1 F Temperature 97.7 F Temperature 97.5 F Temperature 98.1 F Temperature 99 F Temperature 98.8 F Temperature 98.6 F - Labs CBC & Chem 7: 03/19/21 04:00 03/19/21 04:00 Labs: Abnormal lab results 03/16/21 03/18/21 03/18/21 Range/Units 08:00 17:03 23:49 WBC (4.5-11.0) K/mm3 Hgb (11.8-15.2) gm/dl Hct (35.5-45.6) % MCV (84-94) fl MCH (28-32) pg MCHC (32-34) % RDW (13.2-15.2) % Plt Count (140-440) K/mm3 PT (12.2-14.9) Sec. INR (0.87-1.13) D-Dimer (0-234) ng/mlDDU Sodium (137-145) mmol/L Chloride (98-107) mmol/L Carbon Dioxide (22-30) mmol/L BUN (9-20) mg/dL Creatinine (0.8-1.3) mg/dL Glucose (75-100) mg/dL POC Glucose 214 H 192 H (70-105) mg/dL Calcium (8.4-10.2) mg/dL Magnesium (1.7-2.3) mg/dL Ferritin (30.0-300.0) ng/mL Total Bilirubin (0.1-1.2) mg/dL AST (5-40) units/L ALT (7-56) units/L Alkaline Phosphatase (35-129) units/L Lactate Dehydrogenase (91-180) units/L C-Reactive Protein (0.00-1.30) mg/dL Total Protein (6.3-8.2) g/dL Albumin (3.9-5) g/dL Crossmatch See Detail 03/19/21 03/19/21 03/19/21 Range/Units 04:00 04:00 04:00 WBC 16.0 H (4.5-11.0) K/mm3 Hgb 9.9 L (11.8-15.2) gm/dl Hct 32.8 L (35.5-45.6) % MCV 80 L (84-94) fl MCH 24 L (28-32) pg MCHC 30 L (32-34) % RDW 27.6 H (13.2-15.2) % Plt Count 24 L (140-440) K/mm3 PT 23.6 H (12.2-14.9) Sec. INR 1.91 H (0.87-1.13) D-Dimer > 37953 H (0-234) ng/mlDDU Sodium 146 H (137-145) mmol/L Chloride 107.4 H (98-107) mmol/L Carbon Dioxide 31 H (22-30) mmol/L BUN 42 H (9-20) mg/dL Creatinine 0.6 L (0.8-1.3) mg/dL Glucose 230 H (75-100) mg/dL POC Glucose (70-105) mg/dL Calcium 8.3 L (8.4-10.2) mg/dL Magnesium 2.50 H (1.7-2.3) mg/dL Ferritin (30.0-300.0) ng/mL Total Bilirubin 7.40 H (0.1-1.2) mg/dL AST 354 H (5-40) units/L ALT 221 H (7-56) units/L Alkaline Phosphatase 154 H (35-129) units/L Lactate Dehydrogenase (91-180) units/L C-Reactive Protein (0.00-1.30) mg/dL Total Protein 5.8 L (6.3-8.2) g/dL Albumin 2.1 L (3.9-5) g/dL Crossmatch 03/19/21 03/19/21 03/19/21 Range/Units 04:00 04:00 05:43 WBC (4.5-11.0) K/mm3 Hgb (11.8-15.2) gm/dl Hct (35.5-45.6) % MCV (84-94) fl MCH (28-32) pg MCHC (32-34) % RDW (13.2-15.2) % Plt Count (140-440) K/mm3 PT (12.2-14.9) Sec. INR (0.87-1.13) D-Dimer (0-234) ng/mlDDU Sodium (137-145) mmol/L Chloride (98-107) mmol/L Carbon Dioxide (22-30) mmol/L BUN (9-20) mg/dL Creatinine (0.8-1.3) mg/dL Glucose (75-100) mg/dL POC Glucose 220 H (70-105) mg/dL Calcium (8.4-10.2) mg/dL Magnesium (1.7-2.3) mg/dL Ferritin 730.0 H (30.0-300.0) ng/mL Total Bilirubin (0.1-1.2) mg/dL AST (5-40) units/L ALT (7-56) units/L Alkaline Phosphatase (35-129) units/L Lactate Dehydrogenase 915 H (91-180) units/L C-Reactive Protein 4.30 H (0.00-1.30) mg/dL Total Protein (6.3-8.2) g/dL Albumin (3.9-5) g/dL Crossmatch 03/19/21 Range/Units 11:28 WBC (4.5-11.0) K/mm3 Hgb (11.8-15.2) gm/dl Hct (35.5-45.6) % MCV (84-94) fl MCH (28-32) pg MCHC (32-34) % RDW (13.2-15.2) % Plt Count (140-440) K/mm3 PT (12.2-14.9) Sec. INR (0.87-1.13) D-Dimer (0-234) ng/mlDDU Sodium (137-145) mmol/L Chloride (98-107) mmol/L Carbon Dioxide (22-30) mmol/L BUN (9-20) mg/dL Creatinine (0.8-1.3) mg/dL Glucose (75-100) mg/dL POC Glucose 198 H (70-105) mg/dL Calcium (8.4-10.2) mg/dL Magnesium (1.7-2.3) mg/dL Ferritin (30.0-300.0) ng/mL Total Bilirubin (0.1-1.2) mg/dL AST (5-40) units/L ALT (7-56) units/L Alkaline Phosphatase (35-129) units/L Lactate Dehydrogenase (91-180) units/L C-Reactive Protein (0.00-1.30) mg/dL Total Protein (6.3-8.2) g/dL Albumin (3.9-5) g/dL Crossmatch
--- NOTE | 2021-03-19 17:01 | XRay Report ---
ABDOMEN 2 VIEWS INDICATION / CLINICAL INFORMATION: Vomiting. COMPARISON: 03/15/2021 FINDINGS: Study is limited due to body habitus. Enteric catheter tip and side-port project in the stomach. Bowel gas pattern appears grossly unremark able. No large volume free air. Signer Name: Mark Dougherty MD Signed: 03/19/2021 4:56 PM Workstation Name: [id number]
[2021-03-19] MEDS: fentaNYL DRIP Premix 2,000 MCG/100 ML BAG IV SCH (23:29)
[2021-03-20] MEDS: LACTULOSE 20 GM/30 ML ORAL LIQD PO SCH ×2 (01:12→05:27)
[2021-03-20] MEDS: METOCLOPRAMIDE 10 MG/2 ML INJ IV SCH ×4 (01:13→22:00)
[2021-03-20] MEDS: INSULIN LISPRO 100 UNIT/ML SUB-Q SCH ×3 (05:28→18:09)
[2021-03-20 05:43] LABS: ABG Base Excess 6.5 mmol/L (-2.0-3.0); ABG HCO3 31.3 mmol/L (20.0-26.0); ABG Methemoglobin 0.5 % (0.0-1.5); ABG Oxygen Saturation 88.8 % (95.0-99.0); ABG PCO2 46.3 mm Hg; ABG PH 7.448 pH Units (7.350-7.450); ABG PO2 57.3 mm Hg (80.0-90.0)
[2021-03-20 06:32] LABS: Mean Corpuscular HGB Conc 30 % (32-34); Mean Corpuscular Volume 81 fl (84-94); Red Blood Count 4.22 M/mm3 (3.65-5.03)
[2021-03-20 06:35] LABS: Hematocrit 34.3 % (35.5-45.6); Hemoglobin 10.4 gm/dl (11.8-15.2); Red Cell Distribution Width 28.1 % (13.2-15.2)
[2021-03-20 06:42] LABS: Platelet Count 14 K/mm3 (140-440)
[2021-03-20 06:59] LABS: Alanine Aminotransferase 186 units/L (7-56); Albumin 2.1 g/dL (3.9-5); Blood Urea Nitrogen 40 mg/dL (9-20); Calcium 8.9 mg/dL (8.4-10.2); Hemolysis Index 4
[2021-03-20 07:02] LABS: BUN/Creatinine Ratio 100
[2021-03-20] MEDS ORDERED: LACTULOSE 20 GM/30 ML ORAL LIQD PO SCH (09:00)
--- NOTE | 2021-03-20 09:18 | Progress Note ---
Assessment and Plan Impression: * IVON--ATN --HD on Mar 15 for hyperkalemia, refractory metabolic acidosis * Sepsis * Acute hypoxic resp failure * COVID PNA * Hyperkalemia - resolved * Refractory metabolic acidosis - resolved Plan: * No acute indication for renal replacement therapy * Vent management per primary team * Medical management of electrolytes * Continue IVF * Maintain MAP >65, pressors prn * Avoid potential nephrotoxins * Will follow peripherally Subjective Date of service: 03/20/21 Principal diagnosis: Liver, anemia Interval history: Chart, vitals, labs reviewed. Patient remains intubated. Objective - Exam Narrative Exam: Physical exam deferred; primary team exam noted - Vital Signs Vital signs: Vital Signs - 12hr 03/19/21 03/19/21 03/19/21 21:30 21:45 22:00 Temperature Pulse Rate 108 H 110 H 108 H Pulse Rate [ From Monitor] Respiratory 12 15 11 L Rate Blood Pressure 147/96 138/95 135/96 O2 Sat by Pulse 97 97 98 Oximetry 03/19/21 03/19/21 03/19/21 22:15 22:30 22:45 Temperature Pulse Rate 104 H 104 H 102 H Pulse Rate [ From Monitor] Respiratory 13 11 L 17 Rate Blood Pressure 144/93 129/89 135/89 O2 Sat by Pulse 98 98 99 Oximetry 03/19/21 03/19/21 03/19/21 23:00 23:15 23:30 Temperature Pulse Rate 102 H 102 H 102 H Pulse Rate [ From Monitor] Respiratory 15 15 11 L Rate Blood Pressure 140/89 142/89 144/93 O2 Sat by Pulse 99 99 99 Oximetry 03/19/21 03/20/21 03/20/21 23:45 00:00 00:02 Temperature 98.8 F Pulse Rate 102 H 103 H 100 H Pulse Rate [ 105 H From Monitor] Respiratory 13 12 15 Rate Blood Pressure 143/91 144/94 144/94 O2 Sat by Pulse 99 99 99 Oximetry 03/20/21 03/20/21 03/20/21 00:15 00:30 00:45 Temperature Pulse Rate 98 H 101 H 100 H Pulse Rate [ From Monitor] Respiratory 15 14 13 Rate Blood Pressure 139/88 140/91 139/92 O2 Sat by Pulse 99 99 99 Oximetry 03/20/21 03/20/21 03/20/21 01:00 01:15 01:30 Temperature Pulse Rate 100 H 101 H 98 H Pulse Rate [ From Monitor] Respiratory 18 13 12 Rate Blood Pressure 146/91 140/90 138/90 O2 Sat by Pulse 99 99 99 Oximetry 03/20/21 03/20/21 03/20/21 01:45 02:00 02:15 Temperature Pulse Rate 101 H 99 H 102 H Pulse Rate [ From Monitor] Respiratory 16 13 17 Rate Blood Pressure 140/93 145/94 142/92 O2 Sat by Pulse 99 99 100 Oximetry 03/20/21 03/20/21 03/20/21 02:30 02:45 03:00 Temperature Pulse Rate 100 H 101 H 100 H Pulse Rate [ From Monitor] Respiratory 13 15 15 Rate Blood Pressure 148/93 145/90 144/92 O2 Sat by Pulse 99 99 99 Oximetry 03/20/21 03/20/21 03/20/21 03:15 03:30 03:45 Temperature Pulse Rate 105 H 109 H 108 H Pulse Rate [ From Monitor] Respiratory 13 16 12 Rate Blood Pressure 130/95 141/95 147/94 O2 Sat by Pulse 99 97 98 Oximetry 03/20/21 03/20/21 03/20/21 04:00 04:15 04:30 Temperature 98.8 F Pulse Rate 102 H 106 H 102 H Pulse Rate [ 105 H From Monitor] Respiratory 10 L 15 13 Rate Blood Pressure 154/95 147/95 140/90 O2 Sat by Pulse 98 100 100 Oximetry 03/20/21 03/20/21 03/20/21 04:32 04:45 05:00 Temperature Pulse Rate 100 H 102 H 108 H Pulse Rate [ From Monitor] Respiratory 12 15 Rate Blood Pressure 140/90 148/92 152/94 O2 Sat by Pulse 100 100 100 Oximetry 03/20/21 03/20/21 03/20/21 05:15 05:30 05:45 Temperature Pulse Rate 105 H 104 H 105 H Pulse Rate [ From Monitor] Respiratory 11 L 17 15 Rate Blood Pressure 160/99 166/106 150/107 O2 Sat by Pulse 94 96 98 Oximetry 03/20/21 03/20/21 03/20/21 06:00 06:15 06:30 Temperature Pulse Rate 111 H 107 H 102 H Pulse Rate [ From Monitor] Respiratory 14 11 L 14 Rate Blood Pressure 158/101 162/108 161/105 O2 Sat by Pulse 99 99 99 Oximetry 03/20/21 03/20/21 03/20/21 06:45 07:00 07:42 Temperature Pulse Rate 101 H 100 H 109 H Pulse Rate [ From Monitor] Respiratory 15 15 Rate Blood Pressure 157/104 157/104 161/106 O2 Sat by Pulse 99 100 98 Oximetry 03/20/21 08:00 Temperature 98.2 F Pulse Rate Pulse Rate [ From Monitor] Respiratory Rate Blood Pressure O2 Sat by Pulse Oximetry - Lab 03/20/21 05:45 03/20/21 05:45 Most recent lab results ABG pH 7.448 pH Units (7.350-7.450) 03/20/21 05:18 ABG pCO2 46.3 mm Hg 03/20/21 05:18 ABG pO2 57.3 mm Hg (80.0-90.0) L 03/20/21 05:18 ABG HCO3 31.3 mmol/L (20.0-26.0) H 03/20/21 05:18 ABG O2 Saturation 88.8 % (95.0-99.0) L 03/20/21 05:18 Calcium 8.9 mg/dL (8.4-10.2) 03/20/21 05:45 Phosphorus 3.50 mg/dL (2.5-4.5) 03/20/21 05:48 Magnesium 2.20 mg/dL (1.7-2.3) 03/20/21 05:48 Medications & Allergies - Medications Allergies/Adverse Reactions: Allergies No Known Allergies Allergy (Verified 02/27/21 20:19) Home Medications: Home Medications Medication Instructions Recorded Confirmed Last Taken Type Ferrous Sulfate [Feosol 325 MG tab] 325 mg PO BID #30 tablet 03/04/21 Unknown Rx Folic Acid [Folvite] 1 mg PO QDAY #30 tablet 03/04/21 Unknown Rx Spironolactone [Aldactone] 50 mg PO QDAY #30 tablet 03/04/21 Unknown Rx Thiamine [Vitamin B-1] 100 mg PO QDAY #30 tablet 03/04/21 Unknown Rx Active Medications: Generic Name Dose Route Start Last Admin Trade Name Freq PRN Reason Stop Dose Admin Albuterol 2.5 mg 03/12/21 21:29 Albuterol 2.5 Mg/3 Ml Nebu IH Q4HRT PRN Shortness Of Breath Lipase/Protease/Amylase 1 each 03/17/21 12:00 Lipase 10,500/Protease 25,000/Amylase 43,750 (Units) Dr Cap FEEDTUBE PRN PRN For Clogged Feeding Tube Dexamethasone 6 mg 03/13/21 10:00 03/19/21 09:05 Dexamethasone 4 Mg/Ml Vial IV 03/22/21 10:01 6 mg DAILY STEPHEN Administration Dextrose 0 ml 03/15/21 10:00 03/17/21 00:48 Dextrose 50% In Water (25gm) 50 Ml Syringe IV 20 ml Q30MIN PRN Administration Hypoglycemia Protocol Fentanyl 50 mcg 03/13/21 16:03 03/17/21 11:43 Fentanyl 100 Mcg/2 Ml Inj IV 50 mcg Q10MIN PRN Administration ANALGESIA Ferrous Sulfate 300 mg 03/13/21 10:00 03/19/21 21:24 Ferrous Sulfate 300 Mg (60mg Elemental Iron) / 5 Ml Oral Liqd PO Not Given BID STEPHEN Folic Acid 1 mg 03/13/21 10:00 03/19/21 09:06 Folic Acid 1 Mg Tab PO 1 mg QDAY STEPHEN Administration Hydrophilic Ointment 1 applic 03/12/21 20:02 Lip Therapy Vaseline TP Q2HR PRN Dry Lips Fentanyl Citrate 2,000 mcg in 100 mls @ 3.402 mls/hr 03/13/21 17:00 03/19/21 23:29 Fentanyl Drip Premix IV 2 mcg/kg/hr TITR STEPHEN 6.803 mls/hr Administration Protocol 1 MCG/KG/HR NORepinephrine/NS 8 MG-250 ML 8 mg in 250 mls @ 3.75 mls/hr 03/13/21 21:00 03/16/21 18:23 Norepinephrine/Ns 8 Mg-250 Ml (Double Conc) IV 0 mcg/min TITRATE STEPHEN 0 mls/hr Titration Protocol 2 MCG/MIN Sodium Chloride 100 mls @ 999 mls/hr 03/15/21 10:00 Nacl 0.9% IV VICKEY PRN Hypotension Potassium Chloride/Dextrose/Sod Cl 20 meq in 1,000 mls @ 100 mls/hr 03/17/21 10:00 03/19/21 23:26 D5w/0.45% Nacl/Kcl 20 Meq IV 100 mls/hr DIRECT STEPHEN Administration Insulin Human Lispro 0 unit 03/19/21 08:30 03/20/21 05:28 Insulin Lispro 100 Unit/Ml SUB-Q 1 unit Q6HR STEPHEN Administration Protocol Lactulose 20 gm 03/20/21 09:00 Lactulose 20 Gm/30 Ml Oral Liqd PO Q8HR STEPHEN Lansoprazole 30 mg 03/18/21 10:00 03/19/21 09:06 Lansoprazole 30 Mg Solutab FEEDTUBE 30 mg QDAY STEPHEN Administration Metoclopramide HCl 5 mg 03/19/21 22:00 03/20/21 05:29 Metoclopramide 10 Mg/2 Ml Inj IV 5 mg Q8HR STEPHEN Administration Multi-Ingred Cream/Lotion/Oil/Oint 1 applic 03/12/21 20:02 Mineral Oil/Petrolatum, White Ophth Oint 3.5 Gm OU Q4HR PRN Dry Eye(s) Ondansetron HCl 4 mg 03/12/21 21:29 Ondansetron 4 Mg/2 Ml Inj IV Q8H PRN Nausea And Vomiting Senna/Docusate Sodium 1 tab 03/12/21 22:00 03/19/21 21:24 Sennosides/Docusate Sodium 8.6/50 Mg Tab FEEDTUBE Not Given BID STEPHEN Simple Syrup 15 ml 03/17/21 12:00 Simple Syrup 15 Ml FEEDTUBE PRN PRN Hypoglycemia Simple Syrup 30 ml 03/17/21 12:00 Simple Syrup 15 Ml FEEDTUBE PRN PRN Hypoglycemia Sodium Bicarbonate 325 mg 03/17/21 12:00 Sodium Bicarbonate 325 Mg Tab FEEDTUBE PRN PRN For Clogged Feeding Tube Sodium Chloride 10 ml 03/12/21 22:00 03/19/21 21:25 Sodium Chloride 0.9% 10 Ml Flush Syringe IV 10 ml BID STEPHEN Administration Sodium Chloride 10 ml 03/12/21 21:29 Sodium Chloride 0.9% 10 Ml Flush Syringe IV PRN PRN LINE FLUSH Thiamine HCl 100 mg 03/13/21 10:00 03/19/21 09:06 Thiamine 100 Mg Tab PO 100 mg QDAY STEPHEN Administration
[2021-03-20] MEDS: FERROUS SULFATE 300 MG (60MG Elemental Iron) / 5 mL ORAL LIQD PO SCH ×2 (09:26→22:10)
[2021-03-20] MEDS: THIAMINE 100 MG TAB PO SCH (09:26)
[2021-03-20] MEDS: MULTIVITAMIN / MINERAL ORAL LIQUID 15 ML PO SCH (09:26)
[2021-03-20] MEDS: FOLIC ACID 1 MG TAB PO SCH (09:26)
[2021-03-20] MEDS: dexAMETHasone 4 MG/ML VIAL IV SCH (09:26)
[2021-03-20] MEDS: LANSOPRAZOLE 30 MG SOLUTAB FEEDTUBE SCH (09:27)
[2021-03-20] MEDS: SENNOSIDES/DOCUSATE SODIUM 8.6/50 MG TAB FEEDTUBE SCH ×2 (09:27→21:18)
[2021-03-20] MEDS: D5W/0.45% NACL/KCL 20 MEQ 20 MEQ/1,000 ML BAG IV SCH (09:37)
--- NOTE | 2021-03-20 13:35 | Progress Note ---
Assessment and Plan Cultures: SARS CoV2 PCR: Positive as outpatient 03/12/2021 blood culture: no growth 03/12/2021 tracheal aspirate culture: usual resp isaak A/P: 65-year-old male with hepatic cirrhosis, chronic hepatitis C, anemia, ascites, recent hospitalization due to worsening ascites, underwent paracentesis with removal of 13 L of fluid, now with: #Septic shock: from COVID, also ?SBP which couldn't be evaluated, hence treated empirically with ceftriaxone. Initial labs showed significant leukocytosis of 15.4, D-dimer greater than 10K, procalcitonin 8.67, CRP 10.8, LDH 287, ferritin 414, ammonia 72. Ferritin next day worsened to 6545, AST increased to 4019, ALT 501. Required multiple pressors. Remdesivir held. Not a candidate for Actemra. #Bilateral pneumonia: secondary to COVID-19. On steroids. Remdesivir could not completed due to worsening renal and hepatic function. #Acute thrombocytopenia: severe. #Right pleural effusion, ascites #Acute hypoxic respiratory failure: on the vent #Acute renal failure, acidosis: nephrology on board. #Hepatic cirrhosis with ascites, chronic hepatitis C: genotype 1a. Prior treatment status unknown. #Acute hepatic failure Recs: -continue IV/PO Dexamethasone x 10 days -completed 7 days of ceftriaxone -extremely poor prognosis Jhony Nickerson MD, FACP, [facility] O: [phone] F: [phone] Subjective Date of service: 03/20/21 Principal diagnosis: Liver, anemia Interval history: No fever. Remains on the vent. Thrombocytopenic. Objective - Exam Narrative Exam: Physical Exam (reviewed in chart to minimize risk of transmission) Constitutional: deferred Head, Ears, Nose: deferred Eyes: deferred Neck: deferred Oral: deferred Cardiovascular: deferred Respiratory: deferred GI: deferred Musculoskeletal: deferred Skin: deferred Hem/Lymphatic: deferred Psych: deferred Neurological: deferred - Constitutional Vitals: Vital Signs Temp Pulse Resp BP Pulse Ox 98.1 F 100 H 12 160/102 99 03/20/21 12:00 03/20/21 12:15 03/20/21 12:15 03/20/21 12:15 03/20/21 12:15 Temperature -Last 24 Hours Temperature 98.1 F Temperature 98.2 F Temperature 98.8 F Temperature 98.8 F Temperature 98.8 F Temperature 98.8 F Temperature 98.4 F - Labs CBC & Chem 7: 03/20/21 05:45 03/20/21 05:45 Labs: Abnormal lab results 03/19/21 03/19/21 03/20/21 Range/Units 15:56 23:28 05:18 WBC (4.5-11.0) K/mm3 Hgb (11.8-15.2) gm/dl Hct (35.5-45.6) % MCV (84-94) fl MCH (28-32) pg MCHC (32-34) % RDW (13.2-15.2) % Plt Count (140-440) K/mm3 ABG pO2 57.3 L (80.0-90.0) mm Hg ABG HCO3 31.3 H (20.0-26.0) mmol/L ABG O2 Saturation 88.8 L (95.0-99.0) % ABG Base Excess 6.5 H (-2.0-3.0) mmol/L ABG Hemoglobin 10.8 L (14.0-18.0) gm/dl Oxyhemoglobin 86.8 L (95.0-99.0) % Sodium (137-145) mmol/L Chloride (98-107) mmol/L BUN (9-20) mg/dL Creatinine (0.8-1.3) mg/dL Glucose (75-100) mg/dL POC Glucose 225 H 187 H (70-105) mg/dL Total Bilirubin (0.1-1.2) mg/dL AST (5-40) units/L ALT (7-56) units/L Alkaline Phosphatase (35-129) units/L Total Protein (6.3-8.2) g/dL Albumin (3.9-5) g/dL 03/20/21 03/20/21 03/20/21 Range/Units 05:19 05:45 05:45 WBC 14.7 H (4.5-11.0) K/mm3 Hgb 10.4 L (11.8-15.2) gm/dl Hct 34.3 L (35.5-45.6) % MCV 81 L (84-94) fl MCH 25 L (28-32) pg MCHC 30 L (32-34) % RDW 28.1 H (13.2-15.2) % Plt Count 14 L* (140-440) K/mm3 ABG pO2 (80.0-90.0) mm Hg ABG HCO3 (20.0-26.0) mmol/L ABG O2 Saturation (95.0-99.0) % ABG Base Excess (-2.0-3.0) mmol/L ABG Hemoglobin (14.0-18.0) gm/dl Oxyhemoglobin (95.0-99.0) % Sodium 147 H (137-145) mmol/L Chloride 107.5 H (98-107) mmol/L BUN 40 H (9-20) mg/dL Creatinine 0.4 L (0.8-1.3) mg/dL Glucose 191 H (75-100) mg/dL POC Glucose 163 H (70-105) mg/dL Total Bilirubin 9.30 H (0.1-1.2) mg/dL AST 193 H (5-40) units/L ALT 186 H (7-56) units/L Alkaline Phosphatase 137 H (35-129) units/L Total Protein 5.8 L (6.3-8.2) g/dL Albumin 2.1 L (3.9-5) g/dL 03/20/21 Range/Units 11:50 WBC (4.5-11.0) K/mm3 Hgb (11.8-15.2) gm/dl Hct (35.5-45.6) % MCV (84-94) fl MCH (28-32) pg MCHC (32-34) % RDW (13.2-15.2) % Plt Count (140-440) K/mm3 ABG pO2 (80.0-90.0) mm Hg ABG HCO3 (20.0-26.0) mmol/L ABG O2 Saturation (95.0-99.0) % ABG Base Excess (-2.0-3.0) mmol/L ABG Hemoglobin (14.0-18.0) gm/dl Oxyhemoglobin (95.0-99.0) % Sodium (137-145) mmol/L Chloride (98-107) mmol/L BUN (9-20) mg/dL Creatinine (0.8-1.3) mg/dL Glucose (75-100) mg/dL POC Glucose 175 H (70-105) mg/dL Total Bilirubin (0.1-1.2) mg/dL AST (5-40) units/L ALT (7-56) units/L Alkaline Phosphatase (35-129) units/L Total Protein (6.3-8.2) g/dL Albumin (3.9-5) g/dL
--- NOTE | 2021-03-20 14:39 | Progress Note ---
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 Hospital Course to Date: 03/13: Awaiting PCCM, GI, ID input. Ordered CTA chest to rule out PE. Fluids increased due to concern for intravascular depletion. 03/14: Worsening hepatic transaminits, hypoglycemia noted. D/w GI and CCM regarding worsening liver function, likely shock liver. Will attempt [place] transfer for hepatology services, call placed. Worsening renal function, consult placed to nephrology. 03/15: This morning decision was made by nephrology to initiate hemodialysis. Femoral Vas-Cath placed. Patient remains on Levophed and vasopressin and bicarbonate drip. Despite bicarbonate drip patient was acidotic on ABG and given additional 2 A of bicarb. Added phenyl epi gtt for HD if needed. I updated the daughter today while obtaining consent. 03/16: Patient had CT head today per neurology, supratherapeutic INR of six and given vitamin K and FFP follow, thrombocytopenia noted, patient is off of vasopressors. Metabolic acidosis resolved therefore bicarb drip discontinued. Hemoglobin 5.5 given 2 units PRBC. Potassium and mag repleted. NG tube to low intermittent suction. FiO2 decreased. serial h/h 03/17: Patient remains off vasopressors, fentanyl drip started on low-dose, vent changes per CCM and potassium repleted aggressively. GI okay to start tube feeding. LFTs improving. 03/18: Decrease in tidal volume today per CCM, holding sedation as patient is not responding. PSV today. LFTS better, k and mag repleted, TF at goal. SSI to high dose scale. Severe thrombocytopenia and given platelets today. Updated his daughter today regarding status, PSV trial and plts. She inquired about CTH which showed no acute finding but showed chronic changes which were communicated. 03/19: RONALD overnight. On low dose sedation this am, patient open eyes spontaneously not following any commands. High gastric residual, abdomen still distended, IV reglan added. TF held per protocol. Mild improvement in thrombocytopenia, d/w CCM transfuse if plt less than 20. 03/20: Remains on the vent and on low dose fentanly. Plan for SAT /SBT today. Per CCM if patient mentation remains the same he will most like need a trach/PEG. Pl an for possible famil meeting to discuss POC. Plt droped again this am, will continue to monitor for no s/s of any active bleeding, patient is stable. Assessment and Plan #Acute Hepatic/Metabolic Encephalopathy - On low dose sedation, open eyes sponstaneously this am, not following any commands - Continue sedation for RASS goal 0 to -1 - CT head with no abnormality - Ammonia improved, no improvement in mental status - Avoid benzodiazepine to reduce the possibility of delirium - PRN analgesia for CPOT greater than 3 - Maintenance of sleep-wake cycle #CV:Septic Shock #Tachycardia #Hypotension-resolved - SR/ST on the monitor - Off pressors this am - Vassopressors on standby - Maintain adequate perfusion - Continue rehydration with cont. IVF - Continue blood pressure monitor per protocol - Maintain MAP above 65 #Acute Hypoxic Respiratory Failure #COVID Pneumonia - Intubated 03/12 in the ED - Vent Setting:CMV-40%,6,14,380 - This am ABG noted - CCM consulted, appreciate recommendations - Continue IV Steroids and Nebs per CCM - VAP bundle addressed - Aspiration precaution HOB above 30 - Daily SBT and SAT trials as tolerated - Daily ABG and CXR - Continue SPO2 monitoring for SPO2 goal above 92% #GI:Transaminitis #Hyperammonemia-improved #Shock Liver #h/o ESLD 2/2EtOH cirrhosis and hep C with recurrent ascites - ELevated LFTs most likely related to ESLD - MELD NA: 22 - Abdominal ultrasound shows moderate to large volume ascites throughout all 4 quadrants of the abdomen - Ammonia improved, Lactulose on hold - GI consulted, appreciate recommendations - Conservative management per GI - Avoid hepatotoxins - Trend LFTs and ammonia level - No residual this am plan to resume TF - Reglan Added - Continue PPI - Transfer to [place] for liver failure was denied #Acute kidney injury most likely ATN- improved #Hypokalemia-resolved - Presented with hyperkalemia and Scr. as high as high 2.5 - S/p HD on 03/15, renal function and hyperkalemia improved - Nephrology consulted,appreciate recommendation - Strict intake and output - Avoid nephrotoxic medications; Renally dose medications - Monitor and replace electrolytes as needed - Trend BMP, mag, & phos #ID: Septic Shock #COVID Pneumonia #Possible Spontaneous Bacterial Peritonitis(SBP) #Leukocytosis - COVID swab positive - Imagings with bilateral pulmonary opacities - Blood cultures and sputum culture were negative - ID on consult - Continue IV Abx until today per ID - X1 dose of Remdesevir, held due to renal function. Patient not candidate for Actemra - WBCs elevated, afebrile- On IV steroids - Daily CBC monitor #Heme:Severe Thrombocytopenia #Microcytic Anemia #Supratherapeutic INR- resolved - Plt dropped as low as 13, s/p 1unit of Platelets on 03/18 - Plt dropped again this am - Will continue to monitor for now - H&H remains stable, s/p 2units of PRBCs - CTA chest negative for pulmonary embolism - s/p vit K and 1 unit of FFP for high INR - Continue to trend INR - Transfuse platelets for plt less than 20 - Transfuse hemoglobin less than 7 - Monitor for s/s of bleeding - AC on hold - SCD to bilateral lower extremities while in bed - Trend CBC #Endo:Hyperglycemia #Hypoglycemia-resolved - Initially hypoglycemia now Hyperglycemia - Low SSI added Q6hrs - Continue BG check Q6hrs - Avoid Hypoglycemia - Hypoglycemic protocol The high probability of a clinically significant, sudden or life threatening d eterioration of the [multi] system(s) required my full and direct attention, intervention and personal management. The aggregate critical care time was [60] minutes. This time is in addition to time spent performing reported procedures but includes the following: [x] Data Review and interpretation [x] Patient assessment and monitoring of vital signs [x] Documentation [x] Medication orders and management Disposition Plan: ICU Total Time Spent with Patient (Minutes): 60 History Interval history: Patient seen and examined at the bedside. Intubated and on low dose fentanyl gtt. Open eyes spontaneously but does not follow commands. RONALD overnight Hospitalist Physical - Constitutional Vitals: Temp Pulse Resp BP Pulse Ox 98.1 F 100 H 12 160/102 99 03/20/21 12:00 03/20/21 12:15 03/20/21 12:15 03/20/21 12:15 03/20/21 12:15 General appearance: Present: no acute distress, cachectic, other (On the vent, still not following commands) - EENT Eyes: Present: PERRL - Respiratory Respiratory effort: normal Respiratory: bilateral: rhonchi - Cardiovascular Rhythm: regular Heart Sounds: Present: S1 & S2 - Extremities Extremities: no ischemia, pulses intact, pulses symmetrical Peripheral Pulses: within normal limits - Abdominal General gastrointestinal: soft, non-distended, normal bowel sounds - Integumentary Integumentary: Present: warm, dry - Psychiatric Psychiatric: other (On the vent, still not following commands) - Neurologic Neurologic: other (On the vent, still not following commands) - Allied Health Allied health notes reviewed: nursing HEART Score - HEART Score Troponin: Troponin T < 0.010 ng/mL (0.00-0.029) 03/12/21 18:54 Results - Labs CBC & Chem 7: 03/20/21 05:45 03/20/21 05:45 Labs: Laboratory Last Values WBC 14.7 K/mm3 (4.5-11.0) H 03/20/21 05:45 RBC 4.22 M/mm3 (3.65-5.03) 03/20/21 05:45 Hgb 10.4 gm/dl (11.8-15.2) L 03/20/21 05:45 Hct 34.3 % (35.5-45.6) L 03/20/21 05:45 MCV 81 fl (84-94) L 03/20/21 05:45 MCH 25 pg (28-32) L 03/20/21 05:45 MCHC 30 % (32-34) L 03/20/21 05:45 RDW 28.1 % (13.2-15.2) H 03/20/21 05:45 Plt Count 14 K/mm3 (140-440) L* 03/20/21 05:45 Add Manual Diff Complete 03/14/21 05:34 Total Counted 100 03/14/21 05:34 Seg Neutrophils % Optical Sales Associate 03/14/21 05:34 Seg Neuts % (Manual) 72.0 % (40.0-70.0) H 03/14/21 05:34 Band Neutrophils % 16.0 % 03/14/21 05:34 Lymphocytes % (Manual) 5.0 % (13.4-35.0) L 03/14/21 05:34 Reactive Lymphs % (Man) 0 % 03/14/21 05:34 Monocytes % (Manual) 4.0 % (0.0-7.3) 03/14/21 05:34 Eosinophils % (Manual) 0 % (0.0-4.3) 03/14/21 05:34 Basophils % (Manual) 0 % (0.0-1.8) 03/14/21 05:34 Metamyelocytes % 1.0 % 03/14/21 05:34 Myelocytes % 2.0 % 03/14/21 05:34 Promyelocytes % 0 % 03/14/21 05:34 Blast Cells % 0 % 03/14/21 05:34 Nucleated RBC % 7.0 % (0.0-0.9) H 03/14/21 05:34 Seg Neutrophils # Man 12.2 K/mm3 (1.8-7.7) H 03/14/21 05:34 Band Neutrophils # 2.7 K/mm3 03/14/21 05:34 Lymphocytes # (Manual) 0.8 K/mm3 (1.2-5.4) L 03/14/21 05:34 Abs React Lymphs (Man) 0.0 K/mm3 03/14/21 05:34 Monocytes # (Manual) 0.7 K/mm3 (0.0-0.8) 03/14/21 05:34 Eosinophils # (Manual) 0.0 K/mm3 (0.0-0.4) 03/14/21 05:34 Basophils # (Manual) 0.0 K/mm3 (0.0-0.1) 03/14/21 05:34 Metamyelocytes # 0.2 K/mm3 03/14/21 05:34 Myelocytes # 0.3 K/mm3 03/14/21 05:34 Promyelocytes # 0.0 K/mm3 03/14/21 05:34 Blast Cells # 0.0 K/mm3 03/14/21 05:34 Pathologist Review 03/14/21 05:34 WBC Morphology Not Reportable 03/14/21 05:34 Hypersegmented Neuts Not Reportable 03/14/21 05:34 Hyposegmented Neuts Not Reportable 03/14/21 05:34 Hypogranular Neuts Not Reportable 03/14/21 05:34 Smudge Cells Not Reportable 03/14/21 05:34 Toxic Granulation 1+ 03/14/21 05:34 Toxic Vacuolation Not Reportable 03/14/21 05:34 Dohle Bodies Not Reportable 03/14/21 05:34 Pelger-Huet Anomaly Not Reportable 03/14/21 05:34 Saqib Rods Not Reportable 03/14/21 05:34 Platelet Estimate Consistent w auto 03/14/21 05:34 Clumped Platelets Optical Sales Associate 03/14/21 05:34 Plt Clumps, EDTA Not Reportable 03/14/21 05:34 Large Platelets Few 03/14/21 05:34 Giant Platelets Not Reportable 03/14/21 05:34 Platelet Satelliting Not Reportable 03/14/21 05:34 Plt Morphology Comment Not Reportable 03/14/21 05:34 RBC Morphology Not Reportable 03/14/21 05:34 Dimorphic RBCs Not Reportable 03/14/21 05:34 Polychromasia 1+ 03/14/21 05:34 Hypochromasia 2+ 03/14/21 05:34 Poikilocytosis Not Reportable 03/14/21 05:34 Anisocytosis 2+ 03/14/21 05:34 Microcytosis 1+ 03/14/21 05:34 Macrocytosis Not Reportable 03/14/21 05:34 Spherocytes Not Reportable 03/14/21 05:34 Pappenheimer Bodies Not Reportable 03/14/21 05:34 Sickle Cells Not Reportable 03/14/21 05:34 Target Cells 1+ 03/14/21 05:34 Tear Drop Cells Not Reportable 03/14/21 05:34 Ovalocytes Not Reportable 03/14/21 05:34 Helmet Cells Not Reportable 03/14/21 05:34 [place] Bodies Not Reportable 03/14/21 05:34 [place] Rings Not Reportable 03/14/21 05:34 [place] Cells 1+ 03/14/21 05:34 Bite Cells Not Reportable 03/14/21 05:34 Crenated Cell Not Reportable 03/14/21 05:34 Elliptocytes Not Reportable 03/14/21 05:34 Acanthocytes (Spur) Not Reportable 03/14/21 05:34 Rouleaux Not Reportable 03/14/21 05:34 Hemoglobin C Crystals Not Reportable 03/14/21 05:34 Schistocytes Not Reportable 03/14/21 05:34 Malaria parasites Not Reportable 03/14/21 05:34 Wolf Bodies Not Reportable 03/14/21 05:34 Hem Pathologist Commnt Sent to pathology 03/14/21 05:34 PT 23.6 Sec. (12.2-14.9) H 03/19/21 04:00 INR 1.91 (0.87-1.13) H 03/19/21 04:00 APTT 38.7 Sec. (24.2-36.6) H 03/12/21 18:54 D-Dimer > 91111 ng/mlDDU (0-234) H 03/19/21 04:00 ABG pH 7.448 pH Units (7.350-7.450) 03/20/21 05:18 POC ABG pCO2 38.3 mmHg (32.0-48.0) 03/18/21 04:14 ABG pCO2 46.3 mm Hg 03/20/21 05:18 POC ABG pO2 73.1 mmHg (83-108) L 03/18/21 04:14 ABG pO2 57.3 mm Hg (80.0-90.0) L 03/20/21 05:18 POC ABG HCO3 31.6 03/18/21 04:14 ABG HCO3 31.3 mmol/L (20.0-26.0) H 03/20/21 05:18 ABG O2 Saturation 88.8 % (95.0-99.0) L 03/20/21 05:18 ABG O2 Content 13.2 (0.0-44) 03/20/21 05:18 POC ABG Base Excess 8.4 03/18/21 04:14 ABG Base Excess 6.5 mmol/L (-2.0-3.0) H 03/20/21 05:18 ABG Hemoglobin 10.8 gm/dl (14.0-18.0) L 03/20/21 05:18 ABG Oxyhemoglobin 93.6 (94-98) L 03/18/21 04:14 ABG Carboxyhemoglobin 1.8 % (0.0-5.0) 03/20/21 05:18 ABG Methemoglobin 0.5 % (0.0-1.5) 03/20/21 05:18 ABG Sodium 140.2 mmol/L (136.0-145.0) 03/18/21 04:14 ABG Potassium 3.3 mmol/L (3.40-4.50) L 03/18/21 04:14 ABG Chloride 102.0 mmol/L (98-107) 03/18/21 04:14 ABG Glucose 193 mg/dL (65-95) H 03/18/21 04:14 Oxyhemoglobin 86.8 % (95.0-99.0) L 03/20/21 05:18 Carboxyhemoglobin 0.7 (0.5-1.5) 03/18/21 04:14 FiO2 40 % 03/20/21 05:18 FiO2 % 40.0 03/18/21 04:14 Sodium 147 mmol/L (137-145) H 03/20/21 05:45 Potassium 3.6 mmol/L (3.6-5.0) 03/20/21 05:45 Chloride 107.5 mmol/L (98-107) H 03/20/21 05:45 Carbon Dioxide 30 mmol/L (22-30) 03/20/21 05:45 Anion Gap 13 mmol/L 03/20/21 05:45 BUN 40 mg/dL (9-20) H 03/20/21 05:45 Creatinine 0.4 mg/dL (0.8-1.3) L 03/20/21 05:45 Estimated GFR > 60 ml/min 03/20/21 05:45 BUN/Creatinine Ratio 100 % 03/20/21 05:45 Glucose 191 mg/dL (75-100) H 03/20/21 05:45 POC Glucose 175 mg/dL (70-105) H 03/20/21 11:50 Calcium 8.9 mg/dL (8.4-10.2) 03/20/21 05:45 Phosphorus 3.50 mg/dL (2.5-4.5) 03/20/21 05:48 Magnesium 2.20 mg/dL (1.7-2.3) 03/20/21 05:48 Ferritin 730.0 ng/mL (30.0-300.0) H 03/19/21 04:00 Total Bilirubin 9.30 mg/dL (0.1-1.2) H 03/20/21 05:45 AST 193 units/L (5-40) H 03/20/21 05:45 ALT 186 units/L (7-56) H 03/20/21 05:45 Alkaline Phosphatase 137 units/L (35-129) H 03/20/21 05:45 Ammonia 27.0 umol/L (25-60) 03/20/21 05:48 Lactate Dehydrogenase 915 units/L (91-180) H 03/19/21 04:00 Troponin T < 0.010 ng/mL (0.00-0.029) 03/12/21 18:54 C-Reactive Protein 4.30 mg/dL (0.00-1.30) H 03/19/21 04:00 NT-Pro-B Natriuret Pep 1838 pg/mL (0-900) H 03/12/21 18:54 Total Protein 5.8 g/dL (6.3-8.2) L 03/20/21 05:45 Albumin 2.1 g/dL (3.9-5) L 03/20/21 05:45 Albumin/Globulin Ratio 0.6 % 03/20/21 05:45 Procalcitonin 8.67 ng/mL (<0.15) 03/12/21 19:04 Arterial Blood Glucose 193 mg/dL (65-95) H 03/18/21 04:14 Arterial Blood Ionized Calcium 4.4 mg/dL (4.6-5.3) L 03/18/21 04:14 Random Vancomycin 5.6 ug/mL (0-40.0) 03/16/21 06:30 Coronavirus (PCR) Positive (Negative) A 03/13/21 Unknown Hepatitis A IgM Ab Non-reactive (NonReactive) 03/14/21 05:34 Hep Bs Antigen Nonreactive (Negative) 03/14/21 05:34 Hep B Core IgM Ab Non-reactive (NonReactive) 03/14/21 05:34 Hepatitis C Antibody Reactive (NonReactive) A 03/14/21 05:34 Blood Type B POSITIVE 03/16/21 08:00 Antibody Screen Negative 03/16/21 08:00 Crossmatch See Detail 03/16/21 08:00 [place]/IV: Voiding Method Indwelling Catheter Active Medications - Current Medications Current Medications: Generic Name Dose Route Start Last Admin Trade Name Freq PRN Reason Stop Dose Admin Albuterol 2.5 mg 03/12/21 21:29 Albuterol 2.5 Mg/3 Ml Nebu IH Q4HRT PRN Shortness Of Breath Lipase/Protease/Amylase 1 each 03/17/21 12:00 Lipase 10,500/Protease 25,000/Amylase 43,750 (Units) Dr Cap FEEDTUBE PRN PRN For Clogged Feeding Tube Dexamethasone 6 mg 03/13/21 10:00 03/20/21 09:26 Dexamethasone 4 Mg/Ml Vial IV 03/22/21 10:01 6 mg DAILY STEPHEN Administration Dextrose 0 ml 03/15/21 10:00 03/17/21 00:48 Dextrose 50% In Water (25gm) 50 Ml Syringe IV 20 ml Q30MIN PRN Administration Hypoglycemia Protocol Fentanyl 50 mcg 03/13/21 16:03 03/17/21 11:43 Fentanyl 100 Mcg/2 Ml Inj IV 50 mcg Q10MIN PRN Administration ANALGESIA Ferrous Sulfate 300 mg 03/13/21 10:00 03/20/21 09:26 Ferrous Sulfate 300 Mg (60mg Elemental Iron) / 5 Ml Oral Liqd PO 300 mg BID STEPHEN Administration Folic Acid 1 mg 03/13/21 10:00 03/20/21 09:26 Folic Acid 1 Mg Tab PO 1 mg QDAY STEPHEN Administration Hydrophilic Ointment 1 applic 03/12/21 20:02 Lip Therapy Vaseline TP Q2HR PRN Dry Lips Fentanyl Citrate 2,000 mcg in 100 mls @ 3.402 mls/hr 03/13/21 17:00 03/20/21 14:02 Fentanyl Drip Premix IV 0 mcg/kg/hr TITR STEPHEN 0 mls/hr Titration Protocol 1 MCG/KG/HR NORepinephrine/NS 8 MG-250 ML 8 mg in 250 mls @ 3.75 mls/hr 03/13/21 21:00 03/16/21 18:23 Norepinephrine/Ns 8 Mg-250 Ml (Double Conc) IV 0 mcg/min TITRATE STEPHEN 0 mls/hr Titration Protocol 2 MCG/MIN Sodium Chloride 100 mls @ 999 mls/hr 03/15/21 10:00 Nacl 0.9% IV VICKEY PRN Hypotension Insulin Human Lispro 0 unit 03/19/21 08:30 03/20/21 11:59 Insulin Lispro 100 Unit/Ml SUB-Q 1 unit Q6HR STEPHEN Administration Protocol Lansoprazole 30 mg 03/18/21 10:00 03/20/21 09:27 Lansoprazole 30 Mg Solutab FEEDTUBE 30 mg QDAY STEPHEN Administration Metoclopramide HCl 5 mg 03/19/21 22:00 03/20/21 05:29 Metoclopramide 10 Mg/2 Ml Inj IV 5 mg Q8HR STEPHEN Administration Multi-Ingred Cream/Lotion/Oil/Oint 1 applic 03/12/21 20:02 Mineral Oil/Petrolatum, White Ophth Oint 3.5 Gm OU Q4HR PRN Dry Eye(s) Ondansetron HCl 4 mg 03/12/21 21:29 Ondansetron 4 Mg/2 Ml Inj IV Q8H PRN Nausea And Vomiting Senna/Docusate Sodium 1 tab 03/12/21 22:00 03/20/21 09:27 Sennosides/Docusate Sodium 8.6/50 Mg Tab FEEDTUBE Not Given BID STEPHEN Simple Syrup 15 ml 03/17/21 12:00 Simple Syrup 15 Ml FEEDTUBE PRN PRN Hypoglycemia Simple Syrup 30 ml 03/17/21 12:00 Simple Syrup 15 Ml FEEDTUBE PRN PRN Hypoglycemia Sodium Bicarbonate 325 mg 03/17/21 12:00 Sodium Bicarbonate 325 Mg Tab FEEDTUBE PRN PRN For Clogged Feeding Tube Sodium Chloride 10 ml 03/12/21 22:00 03/20/21 09:27 Sodium Chloride 0.9% 10 Ml Flush Syringe IV 10 ml BID STEPHEN Administration Sodium Chloride 10 ml 03/12/21 21:29 Sodium Chloride 0.9% 10 Ml Flush Syringe IV PRN PRN LINE FLUSH Thiamine HCl 100 mg 03/13/21 10:00 03/20/21 09:26 Thiamine 100 Mg Tab PO 100 mg QDAY STEPHEN Administration Nutrition/Malnutrition Assess - Dietary Evaluation Nutrition/Malnutrition Findings: Nutrition Notes Start: 03/13/21 17:20 Freq: Status: Active Protocol: Document 03/19/21 13:04 THOR (Rec: 03/19/21 13:09 THOR [email or web address]) Nutrition Notes Initial or Follow up Reassessment Current Diagnosis Acute Kidney Injury, Respiratory Failure Other Pertinent Diagnosis COVID-19 pneu, ESLD, Anemia, Ascites, Hep C Current Diet TF - Vital AF 1.2 at 60ml/hr Labs/Tests Na 146 BUN 42 BG 230 Mg 2.5 Elevated LFTs Pertinent Medications Lactulose Height 5 ft 11 in Weight 61.2 kg [place] Body Weight (kg) 78.18 BMI 18.8 Weight Status Underweight Subjective/Other Information RN reports high gastric residuals this am (>250ml). TF on hold; one dose of Reglan administered this am. Pt remains on vent support. Burn Absent Trauma Absent Minimum of two criteria No #1 Nutrition Diagnosis Inadequate oral intake Diagnosis Progress(for reassessment Continues documentation) Is patient on ventilator? Yes Is Patient Ambulatory and/or Out of Bed No REE-([facility]-confined to bed) 1708.452 Kcal/Kg value to use for calculation 30 Approximate Energy Requirements Using 1836 kcal/Kg Calculation Used for Recommendations Kcal/kg Additional Notes Pro needs 1.2-2g/k-122g/ day Fluid needs 1ml/kcal Nutrition Intervention Nutrition Support: Resume TF when medically feasible Goal #1 Resume TF to meet nutrient needs Follow-Up By: 03/20/21 Additional Comments F/U: TF restart/tolerance <JOSIE HESS - Last Filed: 03/24/21 12:38> Assessment and Plan Assessment and plan: I saw and evaluated the patient. Discussed with the nurse practitioner and agree with their findings and plan as documented in this note. Hospitalist Physical - Constitutional Vitals: Temp Pulse Resp BP Pulse Ox 97.4 F L 130 H 0 L 52/38 0 L 03/22/21 23:42 03/23/21 01:45 03/23/21 02:01 03/23/21 02:01 03/23/21 02:10 HEART Score - HEART Score Troponin: Troponin T < 0.010 ng/mL (0.00-0.029) 03/12/21 18:54 Results - Labs CBC & Chem 7: 03/22/21 04:00 03/22/21 23:20 Labs: Laboratory Last Values WBC 18.8 K/mm3 (4.5-11.0) H 03/22/21 04:00 RBC 3.97 M/mm3 (3.65-5.03) 03/22/21 04:00 Hgb 9.8 gm/dl (11.8-15.2) L 03/22/21 04:00 Hct 34.0 % (35.5-45.6) L 03/22/21 04:00 MCV 86 fl (84-94) 03/22/21 04:00 MCH 25 pg (28-32) L 03/22/21 04:00 MCHC 29 % (32-34) L 03/22/21 04:00 RDW 29.6 % (13.2-15.2) H 03/22/21 04:00 Plt Count 26 K/mm3 (140-440) L D 03/22/21 04:00 Add Manual Diff Complete 03/14/21 05:34 Total Counted 100 03/14/21 05:34 Seg Neutrophils % Optical Sales Associate 03/14/21 05:34 Seg Neuts % (Manual) 72.0 % (40.0-70.0) H 03/14/21 05:34 Band Neutrophils % 16.0 % 03/14/21 05:34 Lymphocytes % (Manual) 5.0 % (13.4-35.0) L 03/14/21 05:34 Reactive Lymphs % (Man) 0 % 03/14/21 05:34 Monocytes % (Manual) 4.0 % (0.0-7.3) 03/14/21 05:34 Eosinophils % (Manual) 0 % (0.0-4.3) 03/14/21 05:34 Basophils % (Manual) 0 % (0.0-1.8) 03/14/21 05:34 Metamyelocytes % 1.0 % 03/14/21 05:34 Myelocytes % 2.0 % 03/14/21 05:34 Promyelocytes % 0 % 03/14/21 05:34 Blast Cells % 0 % 03/14/21 05:34 Nucleated RBC % 7.0 % (0.0-0.9) H 03/14/21 05:34 Seg Neutrophils # Man 12.2 K/mm3 (1.8-7.7) H 03/14/21 05:34 Band Neutrophils # 2.7 K/mm3 03/14/21 05:34 Lymphocytes # (Manual) 0.8 K/mm3 (1.2-5.4) L 03/14/21 05:34 Abs React Lymphs (Man) 0.0 K/mm3 03/14/21 05:34 Monocytes # (Manual) 0.7 K/mm3 (0.0-0.8) 03/14/21 05:34 Eosinophils # (Manual) 0.0 K/mm3 (0.0-0.4) 03/14/21 05:34 Basophils # (Manual) 0.0 K/mm3 (0.0-0.1) 03/14/21 05:34 Metamyelocytes # 0.2 K/mm3 03/14/21 05:34 Myelocytes # 0.3 K/mm3 03/14/21 05:34 Promyelocytes # 0.0 K/mm3 03/14/21 05:34 Blast Cells # 0.0 K/mm3 03/14/21 05:34 Pathologist Review 03/14/21 05:34 WBC Morphology Not Reportable 03/14/21 05:34 Hypersegmented Neuts Not Reportable 03/14/21 05:34 Hyposegmented Neuts Not Reportable 03/14/21 05:34 Hypogranular Neuts Not Reportable 03/14/21 05:34 Smudge Cells Not Reportable 03/14/21 05:34 Toxic Granulation 1+ 03/14/21 05:34 Toxic Vacuolation Not Reportable 03/14/21 05:34 Dohle Bodies Not Reportable 03/14/21 05:34 Pelger-Huet Anomaly Not Reportable 03/14/21 05:34 Saqib Rods Not Reportable 03/14/21 05:34 Platelet Estimate Consistent w auto 03/14/21 05:34 Clumped Platelets Optical Sales Associate 03/14/21 05:34 Plt Clumps, EDTA Not Reportable 03/14/21 05:34 Large Platelets Few 03/14/21 05:34 Giant Platelets Not Reportable 03/14/21 05:34 Platelet Satelliting Not Reportable 03/14/21 05:34 Plt Morphology Comment Not Reportable 03/14/21 05:34 RBC Morphology Not Reportable 03/14/21 05:34 Dimorphic RBCs Not Reportable 03/14/21 05:34 Polychromasia 1+ 03/14/21 05:34 Hypochromasia 2+ 03/14/21 05:34 Poikilocytosis Not Reportable 03/14/21 05:34 Anisocytosis 2+ 03/14/21 05:34 Microcytosis 1+ 03/14/21 05:34 Macrocytosis Not Reportable 03/14/21 05:34 Spherocytes Not Reportable 03/14/21 05:34 Pappenheimer Bodies Not Reportable 03/14/21 05:34 Sickle Cells Not Reportable 03/14/21 05:34 Target Cells 1+ 03/14/21 05:34 Tear Drop Cells Not Reportable 03/14/21 05:34 Ovalocytes Not Reportable 03/14/21 05:34 Helmet Cells Not Reportable 03/14/21 05:34 [place] Bodies Not Reportable 03/14/21 05:34 [place] Rings Not Reportable 03/14/21 05:34 [place] Cells 1+ 03/14/21 05:34 Bite Cells Not Reportable 03/14/21 05:34 Crenated Cell Not Reportable 03/14/21 05:34 Elliptocytes Not Reportable 03/14/21 05:34 Acanthocytes (Spur) Not Reportable 03/14/21 05:34 Rouleaux Not Reportable 03/14/21 05:34 Hemoglobin C Crystals Not Reportable 03/14/21 05:34 Schistocytes Not Reportable 03/14/21 05:34 Malaria parasites Not Reportable 03/14/21 05:34 Wolf Bodies Not Reportable 03/14/21 05:34 Hem Pathologist Commnt Sent to pathology 03/14/21 05:34 PT 23.6 Sec. (12.2-14.9) H 03/19/21 04:00 INR 1.91 (0.87-1.13) H 03/19/21 04:00 APTT 38.7 Sec. (24.2-36.6) H 03/12/21 18:54 D-Dimer > 64773 ng/mlDDU (0-234) H 03/21/21 Unknown ABG pH 7.093 pH Units (7.350-7.450) L* 03/23/21 01:40 POC ABG pCO2 38.3 mmHg (32.0-48.0) 03/18/21 04:14 ABG pCO2 71.1 mm Hg 03/23/21 01:40 POC ABG pO2 73.1 mmHg (83-108) L 03/18/21 04:14 ABG pO2 28.4 mm Hg (80.0-90.0) L* 03/23/21 01:40 POC ABG HCO3 31.6 03/18/21 04:14 ABG HCO3 21.2 mmol/L (20.0-26.0) 03/23/21 01:40 ABG O2 Saturation 26.3 % (95.0-99.0) L 03/23/21 01:40 ABG O2 Content 3.5 (0.0-44) 03/23/21 01:40 POC ABG Base Excess 8.4 03/18/21 04:14 ABG Base Excess -8.8 mmol/L (-2.0-3.0) L 03/23/21 01:40 ABG Hemoglobin 9.6 gm/dl (14.0-18.0) L 03/23/21 01:40 ABG Oxyhemoglobin 93.6 (94-98) L 03/18/21 04:14 ABG Carboxyhemoglobin 1.4 % (0.0-5.0) 03/23/21 01:40 ABG Methemoglobin 0.9 % (0.0-1.5) 03/23/21 01:40 ABG Sodium 140.2 mmol/L (136.0-145.0) 03/18/21 04:14 ABG Potassium 3.3 mmol/L (3.40-4.50) L 03/18/21 04:14 ABG Chloride 102.0 mmol/L (98-107) 03/18/21 04:14 ABG Glucose 193 mg/dL (65-95) H 03/18/21 04:14 Oxyhemoglobin 25.7 % (95.0-99.0) L 03/23/21 01:40 Carboxyhemoglobin 0.7 (0.5-1.5) 03/18/21 04:14 FiO2 100 % 03/23/21 01:40 FiO2 % 40.0 03/18/21 04:14 Sodium 145 mmol/L (137-145) 03/22/21 04:00 Potassium 5.1 mmol/L (3.6-5.0) H 03/22/21 04:00 Chloride 104.8 mmol/L (98-107) 03/22/21 04:00 Carbon Dioxide 18 mmol/L (22-30) L 03/22/21 04:00 Anion Gap 27 mmol/L 03/22/21 04:00 BUN 73 mg/dL (9-20) H 03/22/21 04:00 Creatinine 1.2 mg/dL (0.8-1.3) D 03/22/21 04:00 Estimated GFR > 60 ml/min 03/22/21 04:00 BUN/Creatinine Ratio 61 % 03/22/21 04:00 Glucose 150 mg/dL (75-100) H 03/22/21 23:20 POC Glucose 120 mg/dL (70-105) H 03/23/21 01:33 Calcium 9.2 mg/dL (8.4-10.2) 03/22/21 04:00 Phosphorus 3.50 mg/dL (2.5-4.5) 03/20/21 05:48 Magnesium 2.20 mg/dL (1.7-2.3) 03/20/21 05:48 Ferritin 443.8 ng/mL (30.0-300.0) H 03/21/21 Unknown Total Bilirubin 14.00 mg/dL (0.1-1.2) H 03/22/21 04:00 AST 146 units/L (5-40) H 03/22/21 04:00 ALT 132 units/L (7-56) H 03/22/21 04:00 Alkaline Phosphatase 108 units/L (35-129) 03/22/21 04:00 Ammonia 27.0 umol/L (25-60) 03/20/21 05:48 Lactate Dehydrogenase 693 units/L (91-180) H 03/21/21 Unknown Troponin T < 0.010 ng/mL (0.00-0.029) 03/12/21 18:54 C-Reactive Protein 5.00 mg/dL (0.00-1.30) H 03/21/21 Unknown NT-Pro-B Natriuret Pep 1838 pg/mL (0-900) H 03/12/21 18:54 Total Protein 5.2 g/dL (6.3-8.2) L 03/22/21 04:00 Albumin 1.8 g/dL (3.9-5) L 03/22/21 04:00 Albumin/Globulin Ratio 0.5 % 03/22/21 04:00 Procalcitonin 11.74 ng/mL (<0.15) 03/21/21 10:46 Arterial Blood Glucose 193 mg/dL (65-95) H 03/18/21 04:14 Arterial Blood Ionized Calcium 4.4 mg/dL (4.6-5.3) L 03/18/21 04:14 Urine Color Sabrina (Yellow) 03/21/21 10:20 Urine Turbidity Cloudy (Clear) 03/21/21 10:20 Urine pH 5.0 (5.0-7.0) 03/21/21 10:20 Ur Specific [place] 1.019 (1.003-1.030) 03/21/21 10:20 Urine Protein 30 mg/dl mg/dL (Negative) 03/21/21 10:20 Urine Glucose (UA) Neg mg/dL (Negative) 03/21/21 10:20 Urine Ketones Neg mg/dL (Negative) 03/21/21 10:20 Urine Blood Mod (Negative) 03/21/21 10:20 Urine Nitrite Neg (Negative) 03/21/21 10:20 Urine Bilirubin Sm (Negative) 03/21/21 10:20 Urine Ictotest Positive (Negative) 03/21/21 10:20 Urine Urobilinogen 2.0 mg/dL (<2.0) 03/21/21 10:20 Ur Leukocyte Esterase Neg (Negative) 03/21/21 10:20 Urine WBC (Auto) 24.0 /HPF (0.0-6.0) H 03/21/21 10:20 Urine RBC (Auto) 8.0 /HPF (0.0-6.0) 03/21/21 10:20 U Epithel Cells (Auto) 3.0 /HPF (0-13.0) 03/21/21 10:20 Hyaline Casts 1 /LPF 03/21/21 10:20 Granular Casts 9 /LPF 03/21/21 10:20 Urine Mucus Few /HPF 03/21/21 10:20 Fluid Type Paracentesis 03/21/21 13:30 Fluid Color Yellow 03/21/21 13:30 Fluid Appearance Hazy 03/21/21 13:30 Fluid WBC 15 /mm3 03/21/21 13:30 Fluid RBC 221 /mm3 03/21/21 13:30 Fluid Seg Neutrophils 50.0 % 03/21/21 13:30 Fluid Lymphocytes 35.0 % 03/21/21 13:30 Fluid Monocytes 15.0 % 03/21/21 13:30 Random Vancomycin 5.6 ug/mL (0-40.0) 03/16/21 06:30 Coronavirus (PCR) Positive (Negative) A 03/13/21 Unknown Hepatitis A IgM Ab Non-reactive (NonReactive) 03/14/21 05:34 Hep Bs Antigen Nonreactive (Negative) 03/14/21 05:34 Hep B Core IgM Ab Non-reactive (NonReactive) 03/14/21 05:34 Hepatitis C Antibody Reactive (NonReactive) A 03/14/21 05:34 Blood Type B POSITIVE 03/16/21 08:00 Antibody Screen Negative 03/16/21 08:00 Crossmatch See Detail 03/16/21 08:00 Microbiology: Microbiology 03/21/21 13:30 Ascities Fluid Body Fluid Culture - Preliminary 03/21/21 10:46 Peripheral/Venous Blood Culture - Preliminary NO GROWTH AFTER 72 HOURS 03/21/21 10:46 Peripheral/Venous Blood Culture - Preliminary NO GROWTH AFTER 72 HOURS 03/21/21 13:40 Tracheal Aspirate Sputum Culture - Final 03/21/21 10:20 Urine,Clean Catch Urine Culture - Final NO GROWTH AFTER 48 HOURS [place]/IV: Voiding Method Indwelling Catheter Nutrition/Malnutrition Assess - Dietary Evaluation Nutrition/Malnutrition Findings: Nutrition Notes Start: 03/13/21 17:20 Freq: Status: Discharge Protocol: Document 03/21/21 14:19 GERALD (Rec: 03/21/21 14:47 GERALD [id number]) Nutrition Notes Initial or Follow up Brief Note Current Diet TF remains on hold. Height 5 ft 11 in Weight 61.2 kg [place] Body Weight (kg) 78.18 BMI 18.8 Weight change and time frame No body weight change reported . Weight Status Underweight Subjective/Other Information RD consult on TF resume and tolerance. TF remains on hold. Pt continues on Mechanical Ventilation. As per MD, discussion with family regarding Trach and PEG due to mental satus and poor prognosis. TF resumed 9:30 03/20 @ 20 ml/ hr. TF stopped 02:50 03/21, stomach distended and labored breathing, 250 ml residuals. Incident with necrotic fingers on 03/20. Percent of energy/protein needs met: TF remains on hold. Nutrition Intervention Follow-Up By: 03/23/21 Additional Comments F/U: TF restart/tolerance
--- NOTE | 2021-03-20 15:03 | Progress Note ---
Assessment and Plan 65 y/o male with acute respiratory failure most likely secondary to COVID plus right sided effusion secondary to large volume ascities from liver cirrhosis. 03/20/21: Tolerated reglan and helped so now ordered on MAY. PSV again today but off all sedation. Need to discuss with family the need for trach and peg given mental state. Very very poor prognosis. 03/19/21: spoke with nursing and having high residuals. Will give a one time dose of reglan this morning. If persists, check KUB. Tolerating PSV this am. mental status is unfortunately unchanged. If strong cough, could consider extubation. Got platelets yesterday with improvement. No overt evidence of bleeding. 03/18/21: Dropped tidal volume to 380 this am. Will ask nursing to discontinue fent and place patient on PSV after about an hour or so of being off sedation. 03/17/21: Will drop tidal volume down to 400. repeat ABG in am. If patient seizes, please obtain stat ABG. Could be secondary to alkalemia. Mental state not improving post improvement of acidemia is a poor prognostic sign in my opinion. Neurology on board and head CT was negative. Neurology wants to try lactulose so ordered today. Will do for 24-36 hours to see if this helps with mental state but doubt it will. Very very guarded to poor prognosis. Plan to have family meeting next week (friday) 03/16/21: Acidemia is improved with HD. Likely will hold today. Stopped bicarb drip and patient is now off pressors. Given drop in hemoglobin need to correct coagulopathy. FFP, vitamin K. GI already following. Hopefully patient does not have esophargeal or gastric varices. No overt evidence of bleeding. q6hour H/H's. Monitor platelets but hold on transfusion for now. Neurology concerned about ammonia level. Have no problem with empiric lactulose but will not trend ammonia levels. Very very guarded prognosis. 03/15/21: Vascath placed in right groin. ORder theron in the event it is needed during HD. Increase bicarb drip to 200. Hold all sedatives. No acute evidence of bleeding currently. Continue to trend LFT's and COags. Very very guarded prognosis. If not able to tolerate HD to fix acidemia, prognosis becomes gravely poor. 1/12/22: Started patient on bicarb drip and gave a few amps of sodium bicarb. Added vasopressin therapy. Continue Steroids and Remdesivir. Off sedation. Guarded prognosis. 1. Wean Vent settings and sedation as tolerated 2. Remdesivir and Steroids, Pending CRP, actemra 3. Hold on proning now that intubated, not able to paralyze and adequately sedate in the ED 4. Negative fluid balance if possible 5. Needs paracentesis, this should take care of pleural effusion as well. 6. Guarded prognosis. CCT 31 minutes. Subjective Date of service: 03/20/21 Principal diagnosis: Liver, anemia Interval history: No acute events. Per nursing agitated and restless so Fent continues. Minimal vent support. Platelets dropped again. Objective Vital Signs - 12hr 03/20/21 03/20/21 03/20/21 03:15 03:30 03:45 Temperature Pulse Rate 105 H 109 H 108 H Pulse Rate [ From Monitor] Respiratory 13 16 12 Rate Blood Pressure 130/95 141/95 147/94 O2 Sat by Pulse 99 97 98 Oximetry 03/20/21 03/20/21 03/20/21 04:00 04:15 04:30 Temperature 98.8 F Pulse Rate 102 H 106 H 102 H Pulse Rate [ 105 H From Monitor] Respiratory 10 L 15 13 Rate Blood Pressure 154/95 147/95 140/90 O2 Sat by Pulse 98 100 100 Oximetry 03/20/21 03/20/21 03/20/21 04:32 04:45 05:00 Temperature Pulse Rate 100 H 102 H 108 H Pulse Rate [ From Monitor] Respiratory 12 15 Rate Blood Pressure 140/90 148/92 152/94 O2 Sat by Pulse 100 100 100 Oximetry 03/20/21 03/20/21 03/20/21 05:15 05:30 05:45 Temperature Pulse Rate 105 H 104 H 105 H Pulse Rate [ From Monitor] Respiratory 11 L 17 15 Rate Blood Pressure 160/99 166/106 150/107 O2 Sat by Pulse 94 96 98 Oximetry 03/20/21 03/20/21 03/20/21 06:00 06:15 06:30 Temperature Pulse Rate 111 H 107 H 102 H Pulse Rate [ From Monitor] Respiratory 14 11 L 14 Rate Blood Pressure 158/101 162/108 161/105 O2 Sat by Pulse 99 99 99 Oximetry 03/20/21 03/20/2122 06:45 07:00 07:15 Temperature Pulse Rate 101 H 100 H 103 H Pulse Rate [ From Monitor] Respiratory 15 15 16 Rate Blood Pressure 157/104 157/104 157/101 O2 Sat by Pulse 99 100 99 Oximetry 03/20/21 03/20/21 03/20/21 07:30 07:42 07:45 Temperature Pulse Rate 102 H 109 H 107 H Pulse Rate [ From Monitor] Respiratory 13 18 Rate Blood Pressure 154/106 161/106 161/106 O2 Sat by Pulse 99 98 97 Oximetry 03/20/21 03/20/21 03/20/21 08:00 08:15 08:30 Temperature 98.2 F Pulse Rate 104 H 104 H 99 H Pulse Rate [ 104 H From Monitor] Respiratory 14 13 13 Rate Blood Pressure 163/106 161/105 154/101 O2 Sat by Pulse 99 99 100 Oximetry 03/20/21 03/20/21 03/20/21 08:45 09:00 09:15 Temperature Pulse Rate 100 H 101 H 99 H Pulse Rate [ From Monitor] Respiratory 13 13 13 Rate Blood Pressure 160/100 154/103 159/104 O2 Sat by Pulse 99 99 99 Oximetry 03/20/21 03/20/21 03/20/21 09:30 09:45 10:00 Temperature Pulse Rate 101 H 102 H 100 H Pulse Rate [ From Monitor] Respiratory 12 12 16 Rate Blood Pressure 161/106 155/107 162/106 O2 Sat by Pulse 99 99 98 Oximetry 03/20/21 03/20/21 03/20/21 10:15 10:30 10:45 Temperature Pulse Rate 102 H 97 H 105 H Pulse Rate [ From Monitor] Respiratory 16 16 13 Rate Blood Pressure 166/104 167/105 162/111 O2 Sat by Pulse 99 98 98 Oximetry 03/20/21 03/20/21 03/20/21 11:00 11:15 11:30 Temperature Pulse Rate 102 H 102 H 94 H Pulse Rate [ From Monitor] Respiratory 12 14 11 L Rate Blood Pressure 161/105 161/107 165/104 O2 Sat by Pulse 99 99 99 Oximetry 03/20/21 03/20/21 03/20/21 11:45 12:00 12:15 Temperature 98.1 F Pulse Rate 99 H 109 H 100 H Pulse Rate [ 109 H From Monitor] Respiratory 13 13 12 Rate Blood Pressure 169/106 165/111 160/102 O2 Sat by Pulse 98 99 99 Oximetry Gastrointestinal: normoactive bowel sounds Integumentary: normal CBC and BMP: 03/20/21 05:45 03/20/21 05:45 ABG, PT/INR, D-dimer: ABG ABG pH 7.448 pH Units (7.350-7.450) 03/20/21 05:18 POC ABG pCO2 38.3 mmHg (32.0-48.0) 03/18/21 04:14 ABG pCO2 46.3 mm Hg 03/20/21 05:18 POC ABG pO2 73.1 mmHg (83-108) L 03/18/21 04:14 ABG pO2 57.3 mm Hg (80.0-90.0) L 03/20/21 05:18 POC ABG HCO3 31.6 03/18/21 04:14 ABG O2 Saturation 88.8 % (95.0-99.0) L 03/20/21 05:18 PT/INR, D-dimer PT 23.6 Sec. (12.2-14.9) H 03/19/21 04:00 INR 1.91 (0.87-1.13) H 03/19/21 04:00 D-Dimer > 17416 ng/mlDDU (0-234) H 03/19/21 04:00 Abnormal lab findings: Abnormal Labs 03/12/21 03/12/21 03/12/21 18:17 18:54 18:54 WBC 15.4 H RBC Hgb 9.0 L Hct 33.2 L MCV 77 L MCH 21 L MCHC 27 L RDW 28.1 H Plt Count Seg Neuts % (Manual) 86.0 H Lymphocytes % (Manual) 4.0 L Monocytes % (Manual) 8.0 H Nucleated RBC % Seg Neutrophils # Man 13.2 H Lymphocytes # (Manual) 0.6 L Monocytes # (Manual) 1.2 H PT INR APTT D-Dimer ABG pH POC ABG pCO2 POC ABG pO2 ABG pO2 ABG HCO3 ABG O2 Saturation ABG Base Excess ABG Hemoglobin ABG Oxyhemoglobin ABG Sodium ABG Potassium ABG Glucose Oxyhemoglobin Sodium 136 L Potassium 5.4 H Chloride Carbon Dioxide 16 L BUN 32 H Creatinine Glucose 104 H POC Glucose 58 L Calcium Magnesium Ferritin Total Bilirubin 1.40 H AST 71 H ALT Alkaline Phosphatase 164 H Ammonia Lactate Dehydrogenase C-Reactive Protein NT-Pro-B Natriuret Pep Total Protein Albumin 2.2 L Arterial Blood Glucose Arterial Blood Ionized Calcium Coronavirus (PCR) Hepatitis C Antibody Crossmatch 03/12/21 03/12/21 03/12/21 18:54 18:54 18:54 WBC RBC Hgb Hct MCV MCH MCHC RDW Plt Count Seg Neuts % (Manual) Lymphocytes % (Manual) Monocytes % (Manual) Nucleated RBC % Seg Neutrophils # Man Lymphocytes # (Manual) Monocytes # (Manual) PT 17.6 H INR 1.31 H APTT 38.7 H D-Dimer > 09190 H ABG pH POC ABG pCO2 POC ABG pO2 ABG pO2 ABG HCO3 ABG O2 Saturation ABG Base Excess ABG Hemoglobin ABG Oxyhemoglobin ABG Sodium ABG Potassium ABG Glucose Oxyhemoglobin Sodium Potassium Chloride Carbon Dioxide BUN Creatinine Glucose POC Glucose Calcium Magnesium Ferritin Total Bilirubin AST ALT Alkaline Phosphatase Ammonia 72.0 H Lactate Dehydrogenase C-Reactive Protein NT-Pro-B Natriuret Pep 1838 H Total Protein Albumin Arterial Blood Glucose Arterial Blood Ionized Calcium Coronavirus (PCR) Hepatitis C Antibody Crossmatch 03/12/21 03/12/21 03/12/21 18:54 19:04 19:21 WBC RBC Hgb Hct MCV MCH MCHC RDW Plt Count Seg Neuts % (Manual) Lymphocytes % (Manual) Monocytes % (Manual) Nucleated RBC % Seg Neutrophils # Man Lymphocytes # (Manual) Monocytes # (Manual) PT INR APTT D-Dimer ABG pH POC ABG pCO2 POC ABG pO2 ABG pO2 ABG HCO3 ABG O2 Saturation ABG Base Excess ABG Hemoglobin ABG Oxyhemoglobin ABG Sodium ABG Potassium ABG Glucose Oxyhemoglobin Sodium Potassium Chloride Carbon Dioxide BUN Creatinine Glucose POC Glucose 30 L Calcium Magnesium Ferritin 414.7 H Total Bilirubin AST ALT Alkaline Phosphatase Ammonia Lactate Dehydrogenase 287 H C-Reactive Protein 10.80 H NT-Pro-B Natriuret Pep Total Protein Albumin Arterial Blood Glucose Arterial Blood Ionized Calcium Coronavirus (PCR) Hepatitis C Antibody Crossmatch 03/12/21 03/12/21 03/13/21 19:50 20:14 00:05 WBC RBC Hgb Hct MCV MCH MCHC RDW Plt Count Seg Neuts % (Manual) Lymphocytes % (Manual) Monocytes % (Manual) Nucleated RBC % Seg Neutrophils # Man Lymphocytes # (Manual) Monocytes # (Manual) PT INR APTT D-Dimer ABG pH POC ABG pCO2 POC ABG pO2 314.9 H ABG pO2 ABG HCO3 ABG O2 Saturation ABG Base Excess ABG Hemoglobin ABG Oxyhemoglobin 98.9 H ABG Sodium ABG Potassium ABG Glucose 229 H Oxyhemoglobin Sodium Potassium Chloride Carbon Dioxide BUN Creatinine Glucose POC Glucose 24 L 371 H Calcium Magnesium Ferritin Total Bilirubin AST ALT Alkaline Phosphatase Ammonia Lactate Dehydrogenase C-Reactive Protein NT-Pro-B Natriuret Pep Total Protein Albumin Arterial Blood Glucose 229 H Arterial Blood Ionized Calcium Coronavirus (PCR) Hepatitis C Antibody Crossmatch 03/13/21 03/13/21 03/13/21 02:29 14:32 14:32 WBC 17.3 H RBC Hgb 8.8 L Hct 31.0 L MCV 75 L MCH 22 L MCHC 29 L RDW 27.5 H Plt Count Seg Neuts % (Manual) 91.0 H Lymphocytes % (Manual) 0 L Monocytes % (Manual) Nucleated RBC % 2.0 H Seg Neutrophils # Man 15.7 H Lymphocytes # (Manual) 0.0 L Monocytes # (Manual) 0.9 H PT INR APTT D-Dimer ABG pH POC ABG pCO2 POC ABG pO2 ABG pO2 ABG HCO3 ABG O2 Saturation ABG Base Excess ABG Hemoglobin ABG Oxyhemoglobin ABG Sodium ABG Potassium ABG Glucose Oxyhemoglobin Sodium Potassium Chloride Carbon Dioxide 16 L BUN 35 H Creatinine 1.5 H Glucose 58 L POC Glucose 128 H Calcium 7.8 L Magnesium Ferritin Total Bilirubin 1.40 H AST 82 H ALT Alkaline Phosphatase 163 H Ammonia Lactate Dehydrogenase C-Reactive Protein NT-Pro-B Natriuret Pep Total Protein 6.2 L Albumin 1.7 L Arterial Blood Glucose Arterial Blood Ionized Calcium Coronavirus (PCR) Hepatitis C Antibody Crossmatch 03/13/21 03/14/21 03/14/21 Unknown 05:00 05:34 WBC 16.9 H RBC Hgb 7.9 L Hct 29.4 L MCV 80 L MCH 22 L MCHC 27 L RDW 28.6 H Plt Count Seg Neuts % (Manual) 72.0 H Lymphocytes % (Manual) 5.0 L Monocytes % (Manual) Nucleated RBC % 7.0 H Seg Neutrophils # Man 12.2 H Lymphocytes # (Manual) 0.8 L Monocytes # (Manual) PT INR APTT D-Dimer ABG pH 7.167 L POC ABG pCO2 24.6 L POC ABG pO2 ABG pO2 ABG HCO3 ABG O2 Saturation ABG Base Excess ABG Hemoglobin 9.3 L ABG Oxyhemoglobin ABG Sodium 135.2 L ABG Potassium 5.5 H ABG Glucose Oxyhemoglobin Sodium Potassium Chloride Carbon Dioxide BUN Creatinine Glucose POC Glucose Calcium Magnesium Ferritin Total Bilirubin AST ALT Alkaline Phosphatase Ammonia Lactate Dehydrogenase C-Reactive Protein NT-Pro-B Natriuret Pep Total Protein Albumin Arterial Blood Glucose Arterial Blood Ionized Calcium 4.3 L Coronavirus (PCR) Positive A Hepatitis C Antibody Crossmatch 03/14/21 03/14/21 03/14/21 05:34 05:34 05:34 WBC RBC Hgb Hct MCV MCH MCHC RDW Plt Count Seg Neuts % (Manual) Lymphocytes % (Manual) Monocytes % (Manual) Nucleated RBC % Seg Neutrophils # Man Lymphocytes # (Manual) Monocytes # (Manual) PT INR APTT D-Dimer > 42799 H ABG pH POC ABG pCO2 POC ABG pO2 ABG pO2 ABG HCO3 ABG O2 Saturation ABG Base Excess ABG Hemoglobin ABG Oxyhemoglobin ABG Sodium ABG Potassium ABG Glucose Oxyhemoglobin Sodium Potassium 5.7 H D Chloride Carbon Dioxide BUN 37 H Creatinine Glucose POC Glucose Calcium 7.9 L Magnesium Ferritin 6545.0 H Total Bilirubin 1.80 H AST 4019 H ALT 501 H Alkaline Phosphatase Ammonia Lactate Dehydrogenase 2367 H C-Reactive Protein 8.40 H NT-Pro-B Natriuret Pep Total Protein 5.8 L Albumin 1.8 L Arterial Blood Glucose Arterial Blood Ionized Calcium Coronavirus (PCR) Hepatitis C Antibody Crossmatch 03/14/21 03/14/21 03/14/21 05:34 07:16 07:18 WBC RBC Hgb Hct MCV MCH MCHC RDW Plt Count Seg Neuts % (Manual) Lymphocytes % (Manual) Monocytes % (Manual) Nucleated RBC % Seg Neutrophils # Man Lymphocytes # (Manual) Monocytes # (Manual) PT INR APTT D-Dimer ABG pH POC ABG pCO2 POC ABG pO2 ABG pO2 ABG HCO3 ABG O2 Saturation ABG Base Excess ABG Hemoglobin ABG Oxyhemoglobin ABG Sodium ABG Potassium ABG Glucose Oxyhemoglobin Sodium Potassium 5.4 H Chloride Carbon Dioxide 12 L BUN 38 H Creatinine 2.5 H D Glucose 29 L* POC Glucose 17 L Calcium 7.6 L Magnesium Ferritin Total Bilirubin AST ALT Alkaline Phosphatase Ammonia Lactate Dehydrogenase 2218 H C-Reactive Protein 8.30 H NT-Pro-B Natriuret Pep Total Protein Albumin Arterial Blood Glucose Arterial Blood Ionized Calcium Coronavirus (PCR) Hepatitis C Antibody Reactive A Crossmatch 03/14/21 03/14/21 03/14/21 08:08 08:59 10:06 WBC RBC Hgb Hct MCV MCH MCHC RDW Plt Count Seg Neuts % (Manual) Lymphocytes % (Manual) Monocytes % (Manual) Nucleated RBC % Seg Neutrophils # Man Lymphocytes # (Manual) Monocytes # (Manual) PT 40.7 H INR 3.85 H APTT D-Dimer ABG pH POC ABG pCO2 POC ABG pO2 ABG pO2 ABG HCO3 ABG O2 Saturation ABG Base Excess ABG Hemoglobin ABG Oxyhemoglobin ABG Sodium ABG Potassium ABG Glucose Oxyhemoglobin Sodium Potassium Chloride Carbon Dioxide BUN Creatinine Glucose POC Glucose 11 L 144 H Calcium Magnesium Ferritin Total Bilirubin AST ALT Alkaline Phosphatase Ammonia Lactate Dehydrogenase C-Reactive Protein NT-Pro-B Natriuret Pep Total Protein Albumin Arterial Blood Glucose Arterial Blood Ionized Calcium Coronavirus (PCR) Hepatitis C Antibody Crossmatch 03/14/21 03/15/21 03/15/21 18:15 03:42 04:17 WBC RBC Hgb Hct MCV MCH MCHC RDW Plt Count Seg Neuts % (Manual) Lymphocytes % (Manual) Monocytes % (Manual) Nucleated RBC % Seg Neutrophils # Man Lymphocytes # (Manual) Monocytes # (Manual) PT INR APTT D-Dimer ABG pH 7.088 L* POC ABG pCO2 POC ABG pO2 ABG pO2 90.7 H ABG HCO3 6.2 L ABG O2 Saturation 92.8 L ABG Base Excess -21.8 L ABG Hemoglobin 8.9 L ABG Oxyhemoglobin ABG Sodium ABG Potassium ABG Glucose Oxyhemoglobin 90.8 L Sodium Potassium 6.5 H* D Chloride Carbon Dioxide 5 L* D BUN 37 H Creatinine 2.1 H Glucose POC Glucose 124 H Calcium 7.4 L Magnesium Ferritin Total Bilirubin 2.40 H AST 3911 H ALT 663 H Alkaline Phosphatase 139 H Ammonia Lactate Dehydrogenase C-Reactive Protein NT-Pro-B Natriuret Pep Total Protein 5.8 L Albumin 1.8 L Arterial Blood Glucose Arterial Blood Ionized Calcium Coronavirus (PCR) Hepatitis C Antibody Crossmatch 03/15/21 03/15/21 03/15/21 11:17 11:41 13:13 WBC RBC Hgb Hct MCV MCH MCHC RDW Plt Count Seg Neuts % (Manual) Lymphocytes % (Manual) Monocytes % (Manual) Nucleated RBC % Seg Neutrophils # Man Lymphocytes # (Manual) Monocytes # (Manual) PT INR APTT D-Dimer ABG pH POC ABG pCO2 POC ABG pO2 ABG pO2 ABG HCO3 ABG O2 Saturation ABG Base Excess ABG Hemoglobin ABG Oxyhemoglobin ABG Sodium ABG Potassium ABG Glucose Oxyhemoglobin Sodium 153 H D Potassium Chloride Carbon Dioxide 14 L D BUN 31 H Creatinine 1.8 H Glucose 262 H POC Glucose 17 L 35 L Calcium 5.8 L* D Magnesium Ferritin Total Bilirubin AST ALT Alkaline Phosphatase Ammonia Lactate Dehydrogenase C-Reactive Protein NT-Pro-B Natriuret Pep Total Protein Albumin Arterial Blood Glucose Arterial Blood Ionized Calcium Coronavirus (PCR) Hepatitis C Antibody Crossmatch 03/15/21 03/15/21 03/16/21 13:53 23:52 06:30 WBC RBC Hgb Hct MCV MCH MCHC RDW Plt Count Seg Neuts % (Manual) Lymphocytes % (Manual) Monocytes % (Manual) Nucleated RBC % Seg Neutrophils # Man Lymphocytes # (Manual) Monocytes # (Manual) PT INR APTT D-Dimer ABG pH POC ABG pCO2 POC ABG pO2 ABG pO2 ABG HCO3 ABG O2 Saturation ABG Base Excess ABG Hemoglobin ABG Oxyhemoglobin ABG Sodium ABG Potassium ABG Glucose Oxyhemoglobin Sodium 146 H Potassium 3.1 L D Chloride Carbon Dioxide BUN 27 H Creatinine 1.8 H Glucose 140 H POC Glucose 40 L 142 H Calcium 7.3 L D Magnesium Ferritin Total Bilirubin 3.10 H AST 2233 H ALT 409 H Alkaline Phosphatase 156 H Ammonia Lactate Dehydrogenase C-Reactive Protein NT-Pro-B Natriuret Pep Total Protein 5.2 L Albumin 2.5 L Arterial Blood Glucose Arterial Blood Ionized Calcium Coronavirus (PCR) Hepatitis C Antibody Crossmatch 03/16/21 03/16/21 03/16/21 06:30 06:30 06:30 WBC 15.5 H RBC 2.54 L Hgb 5.5 L* Hct 19.1 L* D MCV 75 L MCH 21 L MCHC 29 L RDW 26.7 H Plt Count 36 L Seg Neuts % (Manual) Lymphocytes % (Manual) Monocytes % (Manual) Nucleated RBC % Seg Neutrophils # Man Lymphocytes # (Manual) Monocytes # (Manual) PT 58.3 H INR 6.13 H* APTT D-Dimer ABG pH POC ABG pCO2 POC ABG pO2 ABG pO2 ABG HCO3 ABG O2 Saturation ABG Base Excess ABG Hemoglobin ABG Oxyhemoglobin ABG Sodium ABG Potassium ABG Glucose Oxyhemoglobin Sodium Potassium Chloride Carbon Dioxide BUN Creatinine Glucose POC Glucose Calcium Magnesium 1.60 L Ferritin Total Bilirubin AST ALT Alkaline Phosphatase Ammonia Lactate Dehydrogenase C-Reactive Protein NT-Pro-B Natriuret Pep Total Protein Albumin Arterial Blood Glucose Arterial Blood Ionized Calcium Coronavirus (PCR) Hepatitis C Antibody Crossmatch 03/16/21 03/16/21 03/16/21 08:00 12:10 13:19 WBC RBC Hgb Hct MCV MCH MCHC RDW Plt Count Seg Neuts % (Manual) Lymphocytes % (Manual) Monocytes % (Manual) Nucleated RBC % Seg Neutrophils # Man Lymphocytes # (Manual) Monocytes # (Manual) PT INR APTT D-Dimer ABG pH POC ABG pCO2 POC ABG pO2 ABG pO2 ABG HCO3 ABG O2 Saturation ABG Base Excess ABG Hemoglobin ABG Oxyhemoglobin ABG Sodium ABG Potassium ABG Glucose Oxyhemoglobin Sodium Potassium Chloride Carbon Dioxide BUN Creatinine Glucose POC Glucose 59 L 110 H Calcium Magnesium Ferritin Total Bilirubin AST ALT Alkaline Phosphatase Ammonia Lactate Dehydrogenase C-Reactive Protein NT-Pro-B Natriuret Pep Total Protein Albumin Arterial Blood Glucose Arterial Blood Ionized Calcium Coronavirus (PCR) Hepatitis C Antibody Crossmatch See Detail 03/16/21 03/16/21 03/16/21 22:15 22:15 22:15 WBC 16.3 H RBC Hgb 9.7 L D Hct 31.9 L D MCV 79 L MCH 24 L MCHC 30 L RDW 26.0 H Plt Count 27 L Seg Neuts % (Manual) Lymphocytes % (Manual) Monocytes % (Manual) Nucleated RBC % Seg Neutrophils # Man Lymphocytes # (Manual) Monocytes # (Manual) PT 30.3 H INR 2.63 H APTT D-Dimer ABG pH POC ABG pCO2 POC ABG pO2 ABG pO2 ABG HCO3 ABG O2 Saturation ABG Base Excess ABG Hemoglobin ABG Oxyhemoglobin ABG Sodium ABG Potassium ABG Glucose Oxyhemoglobin Sodium Potassium 3.3 L Chloride Carbon Dioxide BUN Creatinine Glucose POC Glucose Calcium Magnesium 2.50 H Ferritin Total Bilirubin AST ALT Alkaline Phosphatase Ammonia Lactate Dehydrogenase C-Reactive Protein NT-Pro-B Natriuret Pep Total Protein Albumin Arterial Blood Glucose Arterial Blood Ionized Calcium Coronavirus (PCR) Hepatitis C Antibody Crossmatch 03/17/21 03/17/21 03/17/21 00:21 00:46 02:34 WBC RBC Hgb Hct MCV MCH MCHC RDW Plt Count Seg Neuts % (Manual) Lymphocytes % (Manual) Monocytes % (Manual) Nucleated RBC % Seg Neutrophils # Man Lymphocytes # (Manual) Monocytes # (Manual) PT INR APTT D-Dimer ABG pH 7.614 H POC ABG pCO2 23.4 L POC ABG pO2 70.5 L ABG pO2 ABG HCO3 ABG O2 Saturation ABG Base Excess ABG Hemoglobin 9.9 L ABG Oxyhemoglobin 93.7 L ABG Sodium ABG Potassium 3.0 L ABG Glucose Oxyhemoglobin Sodium Potassium Chloride Carbon Dioxide BUN Creatinine Glucose POC Glucose 53 L 55 L Calcium Magnesium Ferritin Total Bilirubin AST ALT Alkaline Phosphatase Ammonia Lactate Dehydrogenase C-Reactive Protein NT-Pro-B Natriuret Pep Total Protein Albumin Arterial Blood Glucose Arterial Blood Ionized Calcium 4.0 L Coronavirus (PCR) Hepatitis C Antibody Crossmatch 03/17/21 03/17/21 03/17/21 04:19 04:19 04:19 WBC 15.0 H RBC Hgb 9.3 L Hct 30.3 L MCV 78 L MCH 24 L MCHC 31 L RDW 26.2 H Plt Count 20 L Seg Neuts % (Manual) Lymphocytes % (Manual) Monocytes % (Manual) Nucleated RBC % Seg Neutrophils # Man Lymphocytes # (Manual) Monocytes # (Manual) PT 29.8 H INR 2.58 H APTT D-Dimer ABG pH POC ABG pCO2 POC ABG pO2 ABG pO2 ABG HCO3 ABG O2 Saturation ABG Base Excess ABG Hemoglobin ABG Oxyhemoglobin ABG Sodium ABG Potassium ABG Glucose Oxyhemoglobin Sodium 147 H Potassium 3.0 L Chloride Carbon Dioxide BUN 33 H Creatinine 1.6 H Glucose POC Glucose Calcium 8.0 L Magnesium Ferritin Total Bilirubin 4.30 H AST 1427 H ALT 340 H Alkaline Phosphatase Ammonia Lactate Dehydrogenase C-Reactive Protein NT-Pro-B Natriuret Pep Total Protein 5.4 L Albumin 2.3 L Arterial Blood Glucose Arterial Blood Ionized Calcium Coronavirus (PCR) Hepatitis C Antibody Crossmatch 03/17/21 03/17/21 03/17/21 04:19 13:37 18:25 WBC RBC Hgb 9.7 L Hct 31.6 L MCV MCH MCHC RDW Plt Count Seg Neuts % (Manual) Lymphocytes % (Manual) Monocytes % (Manual) Nucleated RBC % Seg Neutrophils # Man Lymphocytes # (Manual) Monocytes # (Manual) PT INR APTT D-Dimer ABG pH POC ABG pCO2 POC ABG pO2 ABG pO2 ABG HCO3 ABG O2 Saturation ABG Base Excess ABG Hemoglobin ABG Oxyhemoglobin ABG Sodium ABG Potassium ABG Glucose Oxyhemoglobin Sodium Potassium Chloride Carbon Dioxide BUN Creatinine Glucose POC Glucose 148 H Calcium Magnesium 2.40 H Ferritin Total Bilirubin AST ALT Alkaline Phosphatase Ammonia Lactate Dehydrogenase C-Reactive Protein NT-Pro-B Natriuret Pep Total Protein Albumin Arterial Blood Glucose Arterial Blood Ionized Calcium Coronavirus (PCR) Hepatitis C Antibody Crossmatch 03/17/21 03/18/21 03/18/21 23:46 04:14 05:09 WBC RBC Hgb Hct MCV MCH MCHC RDW Plt Count Seg Neuts % (Manual) Lymphocytes % (Manual) Monocytes % (Manual) Nucleated RBC % Seg Neutrophils # Man Lymphocytes # (Manual) Monocytes # (Manual) PT INR APTT D-Dimer ABG pH 7.534 H POC ABG pCO2 POC ABG pO2 73.1 L ABG pO2 ABG HCO3 ABG O2 Saturation ABG Base Excess ABG Hemoglobin 10.1 L ABG Oxyhemoglobin 93.6 L ABG Sodium ABG Potassium 3.3 L ABG Glucose 193 H Oxyhemoglobin Sodium Potassium Chloride Carbon Dioxide BUN Creatinine Glucose POC Glucose 169 H 167 H Calcium Magnesium Ferritin Total Bilirubin AST ALT Alkaline Phosphatase Ammonia Lactate Dehydrogenase C-Reactive Protein NT-Pro-B Natriuret Pep Total Protein Albumin Arterial Blood Glucose 193 H Arterial Blood Ionized Calcium 4.4 L Coronavirus (PCR) Hepatitis C Antibody Crossmatch 03/18/21 03/18/21 03/18/21 06:20 06:20 11:49 WBC 13.5 H RBC Hgb 9.3 L Hct 30.7 L MCV 79 L MCH 24 L MCHC 30 L RDW 27.0 H Plt Count 13 L* Seg Neuts % (Manual) Lymphocytes % (Manual) Monocytes % (Manual) Nucleated RBC % Seg Neutrophils # Man Lymphocytes # (Manual) Monocytes # (Manual) PT INR APTT D-Dimer ABG pH POC ABG pCO2 POC ABG pO2 ABG pO2 ABG HCO3 ABG O2 Saturation ABG Base Excess ABG Hemoglobin ABG Oxyhemoglobin ABG Sodium ABG Potassium ABG Glucose Oxyhemoglobin Sodium 147 H Potassium 3.3 L Chloride Carbon Dioxide BUN 42 H Creatinine Glucose 192 H POC Glucose 191 H Calcium 8.1 L Magnesium Ferritin Total Bilirubin 5.50 H AST 619 H ALT 248 H Alkaline Phosphatase Ammonia Lactate Dehydrogenase C-Reactive Protein NT-Pro-B Natriuret Pep Total Protein 5.2 L Albumin 2.0 L Arterial Blood Glucose Arterial Blood Ionized Calcium Coronavirus (PCR) Hepatitis C Antibody Crossmatch 03/18/21 03/18/21 03/19/21 17:03 23:49 04:00 WBC RBC Hgb Hct MCV MCH MCHC RDW Plt Count Seg Neuts % (Manual) Lymphocytes % (Manual) Monocytes % (Manual) Nucleated RBC % Seg Neutrophils # Man Lymphocytes # (Manual) Monocytes # (Manual) PT INR APTT D-Dimer ABG pH POC ABG pCO2 POC ABG pO2 ABG pO2 ABG HCO3 ABG O2 Saturation ABG Base Excess ABG Hemoglobin ABG Oxyhemoglobin ABG Sodium ABG Potassium ABG Glucose Oxyhemoglobin Sodium 146 H Potassium Chloride 107.4 H Carbon Dioxide 31 H BUN 42 H Creatinine 0.6 L Glucose 230 H POC Glucose 214 H 192 H Calcium 8.3 L Magnesium 2.50 H Ferritin Total Bilirubin 7.40 H AST 354 H ALT 221 H Alkaline Phosphatase 154 H Ammonia Lactate Dehydrogenase C-Reactive Protein NT-Pro-B Natriuret Pep Total Protein 5.8 L Albumin 2.1 L Arterial Blood Glucose Arterial Blood Ionized Calcium Coronavirus (PCR) Hepatitis C Antibody Crossmatch 03/19/21 03/19/21 03/19/21 04:00 04:00 04:00 WBC 16.0 H RBC Hgb 9.9 L Hct 32.8 L MCV 80 L MCH 24 L MCHC 30 L RDW 27.6 H Plt Count 24 L Seg Neuts % (Manual) Lymphocytes % (Manual) Monocytes % (Manual) Nucleated RBC % Seg Neutrophils # Man Lymphocytes # (Manual) Monocytes # (Manual) PT 23.6 H INR 1.91 H APTT D-Dimer > 76363 H ABG pH POC ABG pCO2 POC ABG pO2 ABG pO2 ABG HCO3 ABG O2 Saturation ABG Base Excess ABG Hemoglobin ABG Oxyhemoglobin ABG Sodium ABG Potassium ABG Glucose Oxyhemoglobin Sodium Potassium Chloride Carbon Dioxide BUN Creatinine Glucose POC Glucose Calcium Magnesium Ferritin 730.0 H Total Bilirubin AST ALT Alkaline Phosphatase Ammonia Lactate Dehydrogenase C-Reactive Protein NT-Pro-B Natriuret Pep Total Protein Albumin Arterial Blood Glucose Arterial Blood Ionized Calcium Coronavirus (PCR) Hepatitis C Antibody Crossmatch 03/19/21 03/19/21 03/19/21 04:00 05:43 11:28 WBC RBC Hgb Hct MCV MCH MCHC RDW Plt Count Seg Neuts % (Manual) Lymphocytes % (Manual) Monocytes % (Manual) Nucleated RBC % Seg Neutrophils # Man Lymphocytes # (Manual) Monocytes # (Manual) PT INR APTT D-Dimer ABG pH POC ABG pCO2 POC ABG pO2 ABG pO2 ABG HCO3 ABG O2 Saturation ABG Base Excess ABG Hemoglobin ABG Oxyhemoglobin ABG Sodium ABG Potassium ABG Glucose Oxyhemoglobin Sodium Potassium Chloride Carbon Dioxide BUN Creatinine Glucose POC Glucose 220 H 198 H Calcium Magnesium Ferritin Total Bilirubin AST ALT Alkaline Phosphatase Ammonia Lactate Dehydrogenase 915 H C-Reactive Protein 4.30 H NT-Pro-B Natriuret Pep Total Protein Albumin Arterial Blood Glucose Arterial Blood Ionized Calcium Coronavirus (PCR) Hepatitis C Antibody Crossmatch 03/19/21 03/19/21 03/20/21 15:56 23:28 05:18 WBC RBC Hgb Hct MCV MCH MCHC RDW Plt Count Seg Neuts % (Manual) Lymphocytes % (Manual) Monocytes % (Manual) Nucleated RBC % Seg Neutrophils # Man Lymphocytes # (Manual) Monocytes # (Manual) PT INR APTT D-Dimer ABG pH POC ABG pCO2 POC ABG pO2 ABG pO2 57.3 L ABG HCO3 31.3 H ABG O2 Saturation 88.8 L ABG Base Excess 6.5 H ABG Hemoglobin 10.8 L ABG Oxyhemoglobin ABG Sodium ABG Potassium ABG Glucose Oxyhemoglobin 86.8 L Sodium Potassium Chloride Carbon Dioxide BUN Creatinine Glucose POC Glucose 225 H 187 H Calcium Magnesium Ferritin Total Bilirubin AST ALT Alkaline Phosphatase Ammonia Lactate Dehydrogenase C-Reactive Protein NT-Pro-B Natriuret Pep Total Protein Albumin Arterial Blood Glucose Arterial Blood Ionized Calcium Coronavirus (PCR) Hepatitis C Antibody Crossmatch 03/20/21 03/20/21 03/20/21 05:19 05:45 05:45 WBC 14.7 H RBC Hgb 10.4 L Hct 34.3 L MCV 81 L MCH 25 L MCHC 30 L RDW 28.1 H Plt Count 14 L* Seg Neuts % (Manual) Lymphocytes % (Manual) Monocytes % (Manual) Nucleated RBC % Seg Neutrophils # Man Lymphocytes # (Manual) Monocytes # (Manual) PT INR APTT D-Dimer ABG pH POC ABG pCO2 POC ABG pO2 ABG pO2 ABG HCO3 ABG O2 Saturation ABG Base Excess ABG Hemoglobin ABG Oxyhemoglobin ABG Sodium ABG Potassium ABG Glucose Oxyhemoglobin Sodium 147 H Potassium Chloride 107.5 H Carbon Dioxide BUN 40 H Creatinine 0.4 L Glucose 191 H POC Glucose 163 H Calcium Magnesium Ferritin Total Bilirubin 9.30 H AST 193 H ALT 186 H Alkaline Phosphatase 137 H Ammonia Lactate Dehydrogenase C-Reactive Protein NT-Pro-B Natriuret Pep Total Protein 5.8 L Albumin 2.1 L Arterial Blood Glucose Arterial Blood Ionized Calcium Coronavirus (PCR) Hepatitis C Antibody Crossmatch 03/20/21 11:50 WBC RBC Hgb Hct MCV MCH MCHC RDW Plt Count Seg Neuts % (Manual) Lymphocytes % (Manual) Monocytes % (Manual) Nucleated RBC % Seg Neutrophils # Man Lymphocytes # (Manual) Monocytes # (Manual) PT INR APTT D-Dimer ABG pH POC ABG pCO2 POC ABG pO2 ABG pO2 ABG HCO3 ABG O2 Saturation ABG Base Excess ABG Hemoglobin ABG Oxyhemoglobin ABG Sodium ABG Potassium ABG Glucose Oxyhemoglobin Sodium Potassium Chloride Carbon Dioxide BUN Creatinine Glucose POC Glucose 175 H Calcium Magnesium Ferritin Total Bilirubin AST ALT Alkaline Phosphatase Ammonia Lactate Dehydrogenase C-Reactive Protein NT-Pro-B Natriuret Pep Total Protein Albumin Arterial Blood Glucose Arterial Blood Ionized Calcium Coronavirus (PCR) Hepatitis C Antibody Crossmatch
--- NOTE | 2021-03-20 15:45 | Event Note ---
Date: 03/20/21 Nursing alerted me that patient has necrotic digits on right hand not on pressors. WIll check arterial doppler studies.
--- NOTE | 2021-03-20 17:08 | Vascular Lab Report ---
DUPLEX DOPPLER UPPER EXTREMITY ARTERIAL, RIGHT INDICATION / CLINICAL INFORMATION: Necrotic Digits on right. TECHNIQUE: Arterial duplex examination of the right upper extremity performed using B-mode, color elvin w and spectral Doppler assessment. FINDINGS: RIGHT: - Axillary: PSV 66 cm/sec. Triphasic waveform. - Brachial: PSV 53 cm/sec. Triphasic waveform. - Radial (distal): PSV 89 cm/sec. Monophasic waveform. - Ulnar (distal): PSV 152 cm/sec. Monophasic waveform. IMPRESSION: 1. There is monophasic flow in the distal radial and ulnar arteries. There is velocity elevation in t he distal radial and ulnar artery indicating stenoses in the mid to distal radial and ulnar arteries. Doppler Waveform: - Triphasic is normal. - Biphasic is abnormal if clear transition from triphasic signal along vascular tree. - Monophasic is abnormal. Signer Name: Neftaly Olivier MD Signed: 03/20/2021 5:04 PM Workstation Name: [id number]
[2021-03-20] MEDS: fentaNYL 100 MCG/2 ML INJ IV PRN (18:06)
[2021-03-20] MEDS ORDERED: hydrALAZINE 20 MG/1 ML INJ IV PRN (20:07)
[2021-03-20] MEDS ORDERED: fentaNYL DRIP Premix 2,000 MCG/100 ML BAG IV SCH (21:00)
[2021-03-21] MEDS: INSULIN LISPRO 100 UNIT/ML SUB-Q SCH ×3 (00:10→17:21)
[2021-03-21] MEDS: DEXTROSE 50% IN WATER (25GM) 50 ML SYRINGE IV PRN ×2 (01:30→09:36)
[2021-03-21] MEDS: METOCLOPRAMIDE 10 MG/2 ML INJ IV SCH ×3 (05:41→17:49)
[2021-03-21 06:40] LABS: Mean Corpuscular HGB Conc 29 % (32-34); Mean Corpuscular Volume 85 fl (84-94); Red Blood Count 4.24 M/mm3 (3.65-5.03)
[2021-03-21 06:42] LABS: Hematocrit 35.8 % (35.5-45.6); Hemoglobin 10.4 gm/dl (11.8-15.2); Red Cell Distribution Width 28.4 % (13.2-15.2)
[2021-03-21 06:45] LABS: Platelet Count 13 K/mm3 (140-440)
[2021-03-21 07:06] LABS: Alanine Aminotransferase 149 units/L (7-56); Albumin 1.9 g/dL (3.9-5); Blood Urea Nitrogen 51 mg/dL (9-20); Calcium 9.8 mg/dL (8.4-10.2); Hemolysis Index 28
[2021-03-21 07:07] LABS: BUN/Creatinine Ratio 85
[2021-03-21] MEDS: SIMPLE SYRUP 15 ML FEEDTUBE PRN ×2 (09:05→09:06)
[2021-03-21] MEDS: NORepinephrine/NS 8 MG-250 ML 8 MG/250 ML INFUS..BTL IV SCH (09:05)
[2021-03-21] MEDS ORDERED: DEXTROSE 10% IN WATER 1,000 ML IV ONE (09:13)
[2021-03-21] MEDS ORDERED: LACTATED RINGERS 1,000 ML IV ONE (09:30)
[2021-03-21] MEDS ORDERED: DEXTROSE 10% IN WATER 1,000 ML IV SCH (10:00)
[2021-03-21] MEDS: THIAMINE 100 MG TAB PO SCH (10:48)
[2021-03-21] MEDS: FOLIC ACID 1 MG TAB PO SCH (10:48)
[2021-03-21] MEDS: LANSOPRAZOLE 30 MG SOLUTAB FEEDTUBE SCH (10:49)
[2021-03-21] MEDS: MULTIVITAMIN / MINERAL ORAL LIQUID 15 ML PO SCH (10:49)
[2021-03-21] MEDS: SENNOSIDES/DOCUSATE SODIUM 8.6/50 MG TAB FEEDTUBE SCH ×2 (10:49→21:28)
[2021-03-21] MEDS: dexAMETHasone 4 MG/ML VIAL IV SCH (10:50)
--- NOTE | 2021-03-21 11:45 | Consultation ---
History of Present Illness - Reason for Consult Consult date: 03/21/21 Ischemic Digits on the Right Upper Extremity Requesting physician: JOSIE HESS - History of Present Illness The patient is a 65-year-old male with a history of cirrhosis resulting in massive ascites and recent COVID-19 infection who presented to the emergency department with shortness of breath that eventually required intubation while in the emergency department. His hospital course has been complicated by sepsis that required 3 days of pressors. He has been off of the pressors for at least 4 days however his course has been complicated by thrombocytopenia, hypoglycemia, and he remains intubated. He was found to have ischemic changes to the distal tips of multiple fingers on his right hand and had a recent arterial duplex that suggested stenosis within the radial and ulnar arteries of the right upper extremity. We were consulted for possible management. Past History Past Medical History: anemia, hepatitis, liver disease, renal failure (Tobacco abuser), other (Alcohol abuse, ascites, anemia, COVID) Family history: hypertension Medications and Allergies Allergies Allergy/AdvReac Type Severity Reaction Status Date / Time No Known Allergies Allergy Verified 02/27/21 20:19 Home Medications Medication Instructions Recorded Confirmed Last Taken Type Ferrous Sulfate [Feosol 325 MG tab] 325 mg PO BID #30 tablet 03/04/21 Unknown Rx Folic Acid [Folvite] 1 mg PO QDAY #30 tablet 03/04/21 Unknown Rx Spironolactone [Aldactone] 50 mg PO QDAY #30 tablet 03/04/21 Unknown Rx Thiamine [Vitamin B-1] 100 mg PO QDAY #30 tablet 03/04/21 Unknown Rx Active Meds: Active Medications Albuterol (Albuterol 2.5 Mg/3 Ml Nebu) 2.5 mg IH Q4HRT PRN PRN Reason: Shortness Of Breath Lipase/Protease/Amylase (Lipase 10,500/Protease 25,000/Amylase 43,750 (Units) Dr Marrero) 1 each FEEDTUBE PRN PRN PRN Reason: For Clogged Feeding Tube Dexamethasone (Dexamethasone 4 Mg/Ml Vial) 6 mg IV DAILY STEPHEN Stop: 03/22/21 10:01 Last Admin: 03/21/21 10:50 Dose: 6 mg Dextrose (Dextrose 50% In Water (25gm) 50 Ml Syringe) 0 ml IV Q30MIN PRN; Protocol PRN Reason: Hypoglycemia Last Admin: 03/21/21 09:36 Dose: 50 ml Fentanyl (Fentanyl 100 Mcg/2 Ml Inj) 50 mcg IV Q10MIN PRN PRN Reason: ANALGESIA Last Admin: 03/20/21 18:06 Dose: 50 mcg Ferrous Sulfate (Ferrous Sulfate 300 Mg (60mg Elemental Iron) / 5 Ml Oral Liqd) 300 mg PO BID STEPHEN Last Admin: 03/20/21 22:10 Dose: Not Given Folic Acid (Folic Acid 1 Mg Tab) 1 mg PO QDAY STEPHEN Last Admin: 03/21/21 10:48 Dose: 1 mg Hydralazine HCl (Hydralazine 20 Mg/1 Ml Inj) 5 mg IV Q30MIN PRN PRN Reason: Hypertension Hydrophilic Ointment (Lip Therapy Vaseline) 1 applic TP Q2HR PRN PRN Reason: Dry Lips NORepinephrine/NS 8 MG-250 ML (Norepinephrine/Ns 8 Mg-250 Ml (Double Conc)) 8 mg in 250 mls @ 3.75 mls/hr IV TITRATE STEPHEN; Protocol Last Titration: 03/21/21 10:17 Dose: 0 mcg/min, 0 mls/hr Sodium Chloride (Nacl 0.9%) 100 mls @ 999 mls/hr IV VICKEY PRN PRN Reason: Hypotension Propofol (Diprivan 10 Mg/Ml) 1,000 mg in 100 mls @ 1.836 mls/hr IV TITR STEPHEN; Protocol Last Titration: 03/21/21 08:55 Dose: 0 mcg/kg/min, 0 mls/hr Fentanyl Citrate (Fentanyl Drip Premix) 2,000 mcg in 100 mls @ 3.06 mls/hr IV TITR STEPHEN; Protocol Last Titration: 03/21/21 08:55 Dose: 0 mcg/kg/hr, 0 mls/hr Dextrose (D10w) 1,000 mls @ 75 mls/hr IV DIRECT STEPHEN Insulin Human Lispro (Insulin Lispro 100 Unit/Ml) 0 unit SUB-Q Q6HR STEPHEN; Protocol Last Admin: 03/21/21 05:41 Dose: Not Given Lansoprazole (Lansoprazole 30 Mg Solutab) 30 mg FEEDTUBE QDAY STEPHEN Last Admin: 03/21/21 10:49 Dose: 30 mg Metoclopramide HCl (Metoclopramide 10 Mg/2 Ml Inj) 10 mg IV Q6HR STEPHEN Multi-Ingred Cream/Lotion/Oil/Oint (Mineral Oil/Petrolatum, White Ophth Oint 3.5 Gm) 1 applic OU Q4HR PRN PRN Reason: Dry Eye(s) Ondansetron HCl (Ondansetron 4 Mg/2 Ml Inj) 4 mg IV Q8H PRN PRN Reason: Nausea And Vomiting Senna/Docusate Sodium (Sennosides/Docusate Sodium 8.6/50 Mg Tab) 1 tab FEEDTUBE BID [facility] Last Admin: 03/21/21 10:49 Dose: 1 tab Simple Syrup (Simple Syrup 15 Ml) 15 ml FEEDTUBE PRN PRN PRN Reason: Hypoglycemia Last Admin: 03/21/21 09:06 Dose: 15 ml Simple Syrup (Simple Syrup 15 Ml) 30 ml FEEDTUBE PRN PRN PRN Reason: Hypoglycemia Sodium Bicarbonate (Sodium Bicarbonate 325 Mg Tab) 325 mg FEEDTUBE PRN PRN PRN Reason: For Clogged Feeding Tube Sodium Chloride (Sodium Chloride 0.9% 10 Ml Flush Syringe) 10 ml IV BID [facility] Last Admin: 03/20/21 22:00 Dose: 10 ml Sodium Chloride (Sodium Chloride 0.9% 10 Ml Flush Syringe) 10 ml IV PRN PRN PRN Reason: LINE FLUSH Thiamine HCl (Thiamine 100 Mg Tab) 100 mg PO QDAY [facility] Last Admin: 03/21/21 10:48 Dose: 100 mg Review of Systems ROS unobtainable: due to endotracheal tube Exam - Constitutional Vitals: Temp Pulse Resp BP Pulse Ox 101.1 F H 132 H 12 84/55 95 03/21/21 08:00 03/21/21 11:23 03/21/21 07:00 03/21/21 11:23 03/21/21 11:23 General appearance: Present: other (On the ventilator) - Neck Neck: Present: other (Left external jugular IV is without overt signs of infection) - Respiratory Respiratory effort: other (Ventilator supported) - Cardiovascular Heart rate: 120 Rhythm: regular - Extremities Extremities: pulses intact (Palpable right radial pulse, nonpalpable left radial pulse with palpable brachial pulse) Extremity abnormal: edema (Edema of the right hand, edema of bilateral lower extremities), cyanosis (Cyanotic changes to the right third through fifth fingers, mild cyanotic changes to the left second through fourth fingers), pulses diminished (Nonpalpable pedal pulses bilaterally), other (Ecchymosis to bilateral knees) - Abdominal General gastrointestinal: Present: soft, distended Male genitourinary: Present: deferred - Rectal Rectal Exam: deferred Results - Labs CBC & Chem 7: 03/21/21 Unknown 03/21/21 Unknown Labs: Abnormal lab results 03/20/21 03/20/21 03/21/21 Range/Units 11:50 17:57 01:10 WBC (4.5-11.0) K/mm3 Hgb (11.8-15.2) gm/dl MCH (28-32) pg MCHC (32-34) % RDW (13.2-15.2) % Plt Count (140-440) K/mm3 D-Dimer (0-234) ng/mlDDU Sodium (137-145) mmol/L Carbon Dioxide (22-30) mmol/L BUN (9-20) mg/dL Creatinine (0.8-1.3) mg/dL Glucose (75-100) mg/dL POC Glucose 175 H 142 H 47 L (70-105) mg/dL Ferritin (30.0-300.0) ng/mL Total Bilirubin (0.1-1.2) mg/dL AST (5-40) units/L ALT (7-56) units/L Lactate Dehydrogenase (91-180) units/L C-Reactive Protein (0.00-1.30) mg/dL Total Protein (6.3-8.2) g/dL Albumin (3.9-5) g/dL 03/21/21 03/21/21 03/21/21 Range/Units 01:11 02:45 08:56 WBC (4.5-11.0) K/mm3 Hgb (11.8-15.2) gm/dl MCH (28-32) pg MCHC (32-34) % RDW (13.2-15.2) % Plt Count (140-440) K/mm3 D-Dimer (0-234) ng/mlDDU Sodium (137-145) mmol/L Carbon Dioxide (22-30) mmol/L BUN (9-20) mg/dL Creatinine (0.8-1.3) mg/dL Glucose (75-100) mg/dL POC Glucose 54 L 118 H 25 L (70-105) mg/dL Ferritin (30.0-300.0) ng/mL Total Bilirubin (0.1-1.2) mg/dL AST (5-40) units/L ALT (7-56) units/L Lactate Dehydrogenase (91-180) units/L C-Reactive Protein (0.00-1.30) mg/dL Total Protein (6.3-8.2) g/dL Albumin (3.9-5) g/dL 03/21/21 03/21/21 03/21/21 Range/Units 08:59 09:21 09:35 WBC (4.5-11.0) K/mm3 Hgb (11.8-15.2) gm/dl MCH (28-32) pg MCHC (32-34) % RDW (13.2-15.2) % Plt Count (140-440) K/mm3 D-Dimer (0-234) ng/mlDDU Sodium (137-145) mmol/L Carbon Dioxide (22-30) mmol/L BUN (9-20) mg/dL Creatinine (0.8-1.3) mg/dL Glucose (75-100) mg/dL POC Glucose 24 L 14 L 48 L (70-105) mg/dL Ferritin (30.0-300.0) ng/mL Total Bilirubin (0.1-1.2) mg/dL AST (5-40) units/L ALT (7-56) units/L Lactate Dehydrogenase (91-180) units/L C-Reactive Protein (0.00-1.30) mg/dL Total Protein (6.3-8.2) g/dL Albumin (3.9-5) g/dL 03/21/21 03/21/21 03/21/21 Range/Units Unknown Unknown Unknown WBC (4.5-11.0) K/mm3 Hgb (11.8-15.2) gm/dl MCH (28-32) pg MCHC (32-34) % RDW (13.2-15.2) % Plt Count (140-440) K/mm3 D-Dimer > 16710 H (0-234) ng/mlDDU Sodium 146 H (137-145) mmol/L Carbon Dioxide 21 L D (22-30) mmol/L BUN 51 H (9-20) mg/dL Creatinine 0.6 L (0.8-1.3) mg/dL Glucose 67 L (75-100) mg/dL POC Glucose (70-105) mg/dL Ferritin 443.8 H (30.0-300.0) ng/mL Total Bilirubin 13.10 H (0.1-1.2) mg/dL AST 163 H (5-40) units/L ALT 149 H (7-56) units/L Lactate Dehydrogenase (91-180) units/L C-Reactive Protein (0.00-1.30) mg/dL Total Protein 5.6 L (6.3-8.2) g/dL Albumin 1.9 L (3.9-5) g/dL 03/21/21 03/21/21 Range/Units Unknown Unknown WBC 16.4 H (4.5-11.0) K/mm3 Hgb 10.4 L (11.8-15.2) gm/dl MCH 25 L (28-32) pg MCHC 29 L (32-34) % RDW 28.4 H (13.2-15.2) % Plt Count 13 L* (140-440) K/mm3 D-Dimer (0-234) ng/mlDDU Sodium (137-145) mmol/L Carbon Dioxide (22-30) mmol/L BUN (9-20) mg/dL Creatinine (0.8-1.3) mg/dL Glucose (75-100) mg/dL POC Glucose (70-105) mg/dL Ferritin (30.0-300.0) ng/mL Total Bilirubin (0.1-1.2) mg/dL AST (5-40) units/L ALT (7-56) units/L Lactate Dehydrogenase 693 H (91-180) units/L C-Reactive Protein 5.00 H (0.00-1.30) mg/dL Total Protein (6.3-8.2) g/dL Albumin (3.9-5) g/dL Assessment and Plan The patient is a 65-year-old male with a history of cirrhosis and COVID-19 infection who was admitted to the intensive care unit with sepsis that required several days of pressors. He has been noted to have ischemic changes to the distal tips of the third through fifth digit of his right upper extremity. Although the arterial duplex demonstrates monophasic flow within the radial and ulnar artery there is no obvious plaque, the waveforms are not indicative of post-stenotic flow, and the velocities are not consistent with post-stenotic flow. The patient also has an easily palpable right radial pulse. He also has less than 2-second capillary refill in the palm as well as the nonaffected fingers. The ischemic changes in his fingers was likely caused by the pressors and could be further worsened by COVID infection which induces a hypercoagulable state. It's possible that the flow noted on the arterial duplex is secondary to reactive hyperemia from the previous ischemia caused by the pressors, which is typically time dependent (i.e. the longer the ischemia, the longer the hyperemia). The left upper extremity has a nonpalpable radial pulse and is beginning to have ischemic changes which appear to be caused by frequent fingerstick blood sugars that are required secondary to his hypoglycemia. The flow within the left upper extremity appears to be somewhat compromised compared to that of the right. The patient currently has a thrombocytopenia, with 13,000 platelets, and would not be a candidate for any intervention at this time. In addition to his thrombocytopenia he has a history of rectal bleeding secondary to his cirrhosis and would likely not tolerate anticoagulation which would be necessary during the procedure and possibly after the procedure if any thrombus were found. He would definitely require, at a minimum, antiplatelet therapy after intervention which would also put him at risk of bleeding. Would recommend local wound care for the fingers of bilateral hands to keep the wounds dry. Would avoid continued fingersticks, especially in the left hand, as this hand appears to have less flow than the right upper extremity. Would avoid using the radial arteries for ABGs if possible. Would avoid pressors if possible.
[2021-03-21 12:32] LABS: Bilirubin,Urine SM (Negative); Blood,Urine MOD (Negative); Color,Urine Amber (Yellow); Granular Casts,Urine 9 /LPF; Hyaline Casts,Urine 1 /LPF; Mucus,Urine FEW /HPF
--- NOTE | 2021-03-21 12:43 | Progress Note ---
Assessment and Plan Cultures: SARS CoV2 PCR: Positive 03/12/2021 blood culture: no growth 03/12/2021 tracheal aspirate culture: usual resp isaak 03/21/2021 blood culture: in process A/P: 65-year-old male with hepatic cirrhosis, chronic hepatitis C, anemia, ascites, recent hospitalization due to worsening ascites, underwent paracentesis with removal of 13 L of fluid, now with: #Septic shock: from COVID, also ?SBP which couldn't be evaluated, hence treated empirically with ceftriaxone. Initial labs showed significant leukocytosis of 15.4, D-dimer greater than 10K, procalcitonin 8.67, CRP 10.8, LDH 287, ferritin 414, ammonia 72. Ferritin next day worsened to 6545, AST increased to 4019, ALT 501. Required multiple pressors. Remdesivir held. Not a candidate for Actemra. #Bilateral pneumonia: secondary to COVID-19. On steroids. Remdesivir could not completed due to worsening renal and hepatic function. #Acute thrombocytopenia: severe. #Right pleural effusion, ascites #Acute hypoxic respiratory failure: on the vent #Acute renal failure, acidosis: nephrology on board. #Hepatic cirrhosis with ascites, chronic hepatitis C: genotype 1a. Prior treatment status unknown. #Acute hepatic failure Recs: -follow-up new blood cultures -Will resume IV ceftriaxone 1 g daily -continue IV/PO Dexamethasone x 10 days -extremely poor prognosis, consider comfort Jhony Nickerson MD, FACPJESUS [facility] ([facility]) O: [phone] F: [phone] Subjective Date of service: 03/21/21 Principal diagnosis: Liver, anemia Interval history: Fever of 101.1 F. Remains on the vent. Briefly required pressors. Ischemic/necrotic digits, vascular evaluated. Objective - Exam Narrative Exam: Physical Exam: Constitutional: sedated, intubated, on the vent Head, Ears, Nose: Normocephalic, atraumatic. External ears, nose normal Eyes: Conjunctivae/corneas clear. No icterus. No ptosis. Neck: intubated Oral: intubated Cardiovascular: S1, S2 + Respiratory: AE fair bilaterally and equal GI: Soft, bowel sounds + Musculoskeletal: Ischemic digits Skin: No rash or abscess Hem/Lymphatic: No palpable cervical or supraclavicular nodes. No lymphangitis Psych: no agitation Neurological: sedated, intubated, on the vent, exam limited - Constitutional Vitals: Vital Signs Temp Pulse Resp BP Pulse Ox 101.1 F H 120 H 12 100/57 92 03/21/21 08:00 03/21/21 12:15 03/21/21 12:15 03/21/21 12:15 03/21/21 12:15 Temperature -Last 24 Hours Temperature 101.1 F Temperature 98.5 F Temperature 98.7 F Temperature 99.6 F Temperature 98.6 F Temperature 98 F - Labs CBC & Chem 7: 03/21/21 Unknown 03/21/21 Unknown Labs: Abnormal lab results 03/20/21 03/21/21 03/21/21 Range/Units 17:57 01:10 01:11 WBC (4.5-11.0) K/mm3 Hgb (11.8-15.2) gm/dl MCH (28-32) pg MCHC (32-34) % RDW (13.2-15.2) % Plt Count (140-440) K/mm3 D-Dimer (0-234) ng/mlDDU Sodium (137-145) mmol/L Carbon Dioxide (22-30) mmol/L BUN (9-20) mg/dL Creatinine (0.8-1.3) mg/dL Glucose (75-100) mg/dL POC Glucose 142 H 47 L 54 L (70-105) mg/dL Ferritin (30.0-300.0) ng/mL Total Bilirubin (0.1-1.2) mg/dL AST (5-40) units/L ALT (7-56) units/L Lactate Dehydrogenase (91-180) units/L C-Reactive Protein (0.00-1.30) mg/dL Total Protein (6.3-8.2) g/dL Albumin (3.9-5) g/dL 03/21/21 03/21/21 03/21/21 Range/Units 02:45 08:56 08:59 WBC (4.5-11.0) K/mm3 Hgb (11.8-15.2) gm/dl MCH (28-32) pg MCHC (32-34) % RDW (13.2-15.2) % Plt Count (140-440) K/mm3 D-Dimer (0-234) ng/mlDDU Sodium (137-145) mmol/L Carbon Dioxide (22-30) mmol/L BUN (9-20) mg/dL Creatinine (0.8-1.3) mg/dL Glucose (75-100) mg/dL POC Glucose 118 H 25 L 24 L (70-105) mg/dL Ferritin (30.0-300.0) ng/mL Total Bilirubin (0.1-1.2) mg/dL AST (5-40) units/L ALT (7-56) units/L Lactate Dehydrogenase (91-180) units/L C-Reactive Protein (0.00-1.30) mg/dL Total Protein (6.3-8.2) g/dL Albumin (3.9-5) g/dL 03/21/21 03/21/21 03/21/21 Range/Units 09:21 09:35 12:20 WBC (4.5-11.0) K/mm3 Hgb (11.8-15.2) gm/dl MCH (28-32) pg MCHC (32-34) % RDW (13.2-15.2) % Plt Count (140-440) K/mm3 D-Dimer (0-234) ng/mlDDU Sodium (137-145) mmol/L Carbon Dioxide (22-30) mmol/L BUN (9-20) mg/dL Creatinine (0.8-1.3) mg/dL Glucose (75-100) mg/dL POC Glucose 14 L 48 L 68 L (70-105) mg/dL Ferritin (30.0-300.0) ng/mL Total Bilirubin (0.1-1.2) mg/dL AST (5-40) units/L ALT (7-56) units/L Lactate Dehydrogenase (91-180) units/L C-Reactive Protein (0.00-1.30) mg/dL Total Protein (6.3-8.2) g/dL Albumin (3.9-5) g/dL 03/21/21 03/21/21 03/21/21 Range/Units Unknown Unknown Unknown WBC (4.5-11.0) K/mm3 Hgb (11.8-15.2) gm/dl MCH (28-32) pg MCHC (32-34) % RDW (13.2-15.2) % Plt Count (140-440) K/mm3 D-Dimer > 59188 H (0-234) ng/mlDDU Sodium 146 H (137-145) mmol/L Carbon Dioxide 21 L D (22-30) mmol/L BUN 51 H (9-20) mg/dL Creatinine 0.6 L (0.8-1.3) mg/dL Glucose 67 L (75-100) mg/dL POC Glucose (70-105) mg/dL Ferritin 443.8 H (30.0-300.0) ng/mL Total Bilirubin 13.10 H (0.1-1.2) mg/dL AST 163 H (5-40) units/L ALT 149 H (7-56) units/L Lactate Dehydrogenase (91-180) units/L C-Reactive Protein (0.00-1.30) mg/dL Total Protein 5.6 L (6.3-8.2) g/dL Albumin 1.9 L (3.9-5) g/dL 03/21/21 03/21/21 Range/Units Unknown Unknown WBC 16.4 H (4.5-11.0) K/mm3 Hgb 10.4 L (11.8-15.2) gm/dl MCH 25 L (28-32) pg MCHC 29 L (32-34) % RDW 28.4 H (13.2-15.2) % Plt Count 13 L* (140-440) K/mm3 D-Dimer (0-234) ng/mlDDU Sodium (137-145) mmol/L Carbon Dioxide (22-30) mmol/L BUN (9-20) mg/dL Creatinine (0.8-1.3) mg/dL Glucose (75-100) mg/dL POC Glucose (70-105) mg/dL Ferritin (30.0-300.0) ng/mL Total Bilirubin (0.1-1.2) mg/dL AST (5-40) units/L ALT (7-56) units/L Lactate Dehydrogenase 693 H (91-180) units/L C-Reactive Protein 5.00 H (0.00-1.30) mg/dL Total Protein (6.3-8.2) g/dL Albumin (3.9-5) g/dL
[2021-03-21 12:45] LABS: Ictotest,Urine Positive (Negative)
[2021-03-21] MEDS ORDERED: LIDOCAINE (1%) 10 MG/1 ML VIAL 20 ML MDV ONE (12:48)
[2021-03-21] MEDS ORDERED: LIDOCAINE (1%) 10 MG/1 ML VIAL 20 ML MDV INFILTRATI ONE (13:00)
--- NOTE | 2021-03-21 13:53 | Progress Note ---
Assessment and Plan 65 y/o male with acute respiratory failure most likely secondary to COVID plus right sided effusion secondary to large volume ascities from liver cirrhosis. 03/21/21: Given fever, will repeat cultures and tap belly to send for culture. Urine analysis as well. Hold on giving platelets for now. Need to have family discussion in regards to goals of care. Patient is a high risk for decompensation. May need to consider large volume paracentesis. Oxygen requirement increased, will order CXR. Very guarded to poor prognosis. 03/20/21: Tolerated reglan and helped so now ordered on MAY. PSV again today but off all sedation. Need to discuss with family the need for trach and peg given mental state. Very very poor prognosis. 03/19/21: spoke with nursing and having high residuals. Will give a one time dose of reglan this morning. If persists, check KUB. Tolerating PSV this am. mental status is unfortunately unchanged. If strong cough, could consider extubation. Got platelets yesterday with improvement. No overt evidence of bleeding. 03/18/21: Dropped tidal volume to 380 this am. Will ask nursing to discontinue fent and place patient on PSV after about an hour or so of being off sedation. 03/17/21: Will drop tidal volume down to 400. repeat ABG in am. If patient seizes, please obtain stat ABG. Could be secondary to alkalemia. Mental state not improving post improvement of acidemia is a poor prognostic sign in my opinion. Neurology on board and head CT was negative. Neurology wants to try lactulose so ordered today. Will do for 24-36 hours to see if this helps with mental state but doubt it will. Very very guarded to poor prognosis. Plan to have family meeting next week (friday) 03/16/21: Acidemia is improved with HD. Likely will hold today. Stopped bicarb drip and patient is now off pressors. Given drop in hemoglobin need to correct coagulopathy. FFP, vitamin K. GI already following. Hopefully patient does not have esophargeal or gastric varices. No overt evidence of bleeding. q6hour H/H's. Monitor platelets but hold on transfusion for now. Neurology concerned about ammonia level. Have no problem with empiric lactulose but will not trend ammonia levels. Very very guarded prognosis. 03/15/21: Vascath placed in right groin. ORder theron in the event it is needed during HD. Increase bicarb drip to 200. Hold all sedatives. No acute evidence of bleeding currently. Continue to trend LFT's and COags. Very very guarded prognosis. If not able to tolerate HD to fix acidemia, prognosis becomes gravely poor. 03/14/21: Started patient on bicarb drip and gave a few amps of sodium bicarb. Added vasopressin therapy. Continue Steroids and Remdesivir. Off sedation. Gua rded prognosis. 1. Wean Vent settings and sedation as tolerated 2. Remdesivir and Steroids, Pending CRP, actemra 3. Hold on proning now that intubated, not able to paralyze and adequately sedate in the ED 4. Negative fluid balance if possible 5. Needs paracentesis, this should take care of pleural effusion as well. 6. Guarded prognosis. CCT 31 minutes. Subjective Date of service: 03/21/21 Principal diagnosis: Liver, anemia Interval history: WAs having high residuals so tube feeds were stopped. While NPO, developed hypoglycemia. Platelets continue to drop but no evidence of acute bleeding. Abdomen is distended. Febrile this am to 101.4 Objective Vital Signs - 12hr 03/21/21 03/21/21 03/21/21 01:45 02:00 02:15 Temperature Pulse Rate 126 H 127 H 128 H Pulse Rate [ From Monitor] Respiratory 22 18 14 Rate Blood Pressure 99/75 105/75 114/74 O2 Sat by Pulse 93 92 93 Oximetry 03/21/21 03/21/21 03/21/21 02:30 02:45 03:00 Temperature Pulse Rate 128 H 129 H 129 H Pulse Rate [ From Monitor] Respiratory 16 16 13 Rate Blood Pressure 114/74 110/74 107/71 O2 Sat by Pulse 94 94 94 Oximetry 03/21/21 03/21/21 03/21/21 03:15 03:28 03:30 Temperature Pulse Rate 128 H 127 H 128 H Pulse Rate [ From Monitor] Respiratory 13 13 Rate Blood Pressure 107/70 107/70 107/70 O2 Sat by Pulse 94 94 94 Oximetry 03/21/21 03/21/21 03/21/21 03:45 04:00 04:15 Temperature 98.5 F Pulse Rate 127 H 127 H 128 H Pulse Rate [ 128 H From Monitor] Respiratory 12 12 12 Rate Blood Pressure 105/69 103/68 100/68 O2 Sat by Pulse 94 94 94 Oximetry 03/21/21 03/21/21 03/21/21 04:30 04:45 05:00 Temperature Pulse Rate 127 H 128 H 126 H Pulse Rate [ From Monitor] Respiratory 12 11 L 12 Rate Blood Pressure 100/67 100/66 97/66 O2 Sat by Pulse 94 94 94 Oximetry 03/21/21 03/21/21 03/21/21 05:15 05:30 05:45 Temperature Pulse Rate 127 H 124 H 123 H Pulse Rate [ From Monitor] Respiratory 13 14 12 Rate Blood Pressure 99/69 101/66 95/65 O2 Sat by Pulse 94 94 94 Oximetry 03/21/21 03/21/21 03/21/21 06:00 06:15 06:30 Temperature Pulse Rate 123 H 123 H 124 H Pulse Rate [ From Monitor] Respiratory 12 12 12 Rate Blood Pressure 97/67 91/62 87/60 O2 Sat by Pulse 94 94 94 Oximetry 03/21/21 03/21/21 03/21/21 06:45 07:00 07:15 Temperature Pulse Rate 123 H 124 H 123 H Pulse Rate [ From Monitor] Respiratory 13 12 12 Rate Blood Pressure 85/57 84/55 84/58 O2 Sat by Pulse 94 93 95 Oximetry 03/21/21 03/21/21 03/21/21 07:30 07:45 08:00 Temperature 101.1 F H Pulse Rate 123 H 122 H 122 H Pulse Rate [ From Monitor] Respiratory 16 11 L 12 Rate Blood Pressure 81/55 85/55 82/55 O2 Sat by Pulse 94 93 93 Oximetry 03/21/21 03/21/21 03/21/21 08:15 08:30 08:45 Temperature Pulse Rate 120 H 123 H 120 H Pulse Rate [ From Monitor] Respiratory 13 14 13 Rate Blood Pressure 81/50 81/49 72/42 O2 Sat by Pulse 93 93 83 L Oximetry 03/21/21 03/21/21 03/21/21 08:58 08:59 09:00 Temperature Pulse Rate 124 H 121 H Pulse Rate [ From Monitor] Respiratory 13 Rate Blood Pressure 84/55 73/48 O2 Sat by Pulse 93 95 94 Oximetry 03/21/21 03/21/21 03/21/21 09:15 09:30 09:45 Temperature Pulse Rate 121 H 124 H 127 H Pulse Rate [ From Monitor] Respiratory 15 15 12 Rate Blood Pressure 70/45 89/57 95/60 O2 Sat by Pulse 92 94 92 Oximetry 03/21/21 03/21/21 03/21/21 10:00 10:15 10:30 Temperature Pulse Rate 128 H 128 H 124 H Pulse Rate [ From Monitor] Respiratory 12 12 13 Rate Blood Pressure 104/64 114/66 96/60 O2 Sat by Pulse 92 93 94 Oximetry 03/21/21 03/21/21 03/21/21 10:45 11:00 11:15 Temperature Pulse Rate 123 H 120 H 120 H Pulse Rate [ From Monitor] Respiratory 14 12 12 Rate Blood Pressure 97/58 102/61 110/61 O2 Sat by Pulse 95 95 96 Oximetry 03/21/21 03/21/21 03/21/21 11:23 11:30 11:45 Temperature Pulse Rate 132 H 120 H 119 H Pulse Rate [ From Monitor] Respiratory 13 12 Rate Blood Pressure 84/55 92/59 93/57 O2 Sat by Pulse 95 95 94 Oximetry 03/21/21 03/21/21 12:00 12:15 Temperature 100.4 F H Pulse Rate 119 H 120 H Pulse Rate [ From Monitor] Respiratory 12 12 Rate Blood Pressure 92/55 100/57 O2 Sat by Pulse 94 92 Oximetry Gastrointestinal: normoactive bowel sounds Integumentary: normal CBC and BMP: 03/21/21 Unknown 03/21/21 Unknown ABG, PT/INR, D-dimer: ABG ABG pH 7.448 pH Units (7.350-7.450) 03/20/21 05:18 POC ABG pCO2 38.3 mmHg (32.0-48.0) 03/18/21 04:14 ABG pCO2 46.3 mm Hg 03/20/21 05:18 POC ABG pO2 73.1 mmHg (83-108) L 03/18/21 04:14 ABG pO2 57.3 mm Hg (80.0-90.0) L 03/20/21 05:18 POC ABG HCO3 31.6 03/18/21 04:14 ABG O2 Saturation 88.8 % (95.0-99.0) L 03/20/21 05:18 PT/INR, D-dimer PT 23.6 Sec. (12.2-14.9) H 03/19/21 04:00 INR 1.91 (0.87-1.13) H 03/19/21 04:00 D-Dimer > 84875 ng/mlDDU (0-234) H 03/21/21 Unknown Abnormal lab findings: Abnormal Labs 03/12/21 03/12/21 03/12/21 18:17 18:54 18:54 WBC 15.4 H RBC Hgb 9.0 L Hct 33.2 L MCV 77 L MCH 21 L MCHC 27 L RDW 28.1 H Plt Count Seg Neuts % (Manual) 86.0 H Lymphocytes % (Manual) 4.0 L Monocytes % (Manual) 8.0 H Nucleated RBC % Seg Neutrophils # Man 13.2 H Lymphocytes # (Manual) 0.6 L Monocytes # (Manual) 1.2 H PT INR APTT D-Dimer ABG pH POC ABG pCO2 POC ABG pO2 ABG pO2 ABG HCO3 ABG O2 Saturation ABG Base Excess ABG Hemoglobin ABG Oxyhemoglobin ABG Sodium ABG Potassium ABG Glucose Oxyhemoglobin Sodium 136 L Potassium 5.4 H Chloride Carbon Dioxide 16 L BUN 32 H Creatinine Glucose 104 H POC Glucose 58 L Calcium Magnesium Ferritin Total Bilirubin 1.40 H AST 71 H ALT Alkaline Phosphatase 164 H Ammonia Lactate Dehydrogenase C-Reactive Protein NT-Pro-B Natriuret Pep Total Protein Albumin 2.2 L Arterial Blood Glucose Arterial Blood Ionized Calcium Urine WBC (Auto) Coronavirus (PCR) Hepatitis C Antibody Crossmatch 03/12/21 03/12/21 03/12/21 18:54 18:54 18:54 WBC RBC Hgb Hct MCV MCH MCHC RDW Plt Count Seg Neuts % (Manual) Lymphocytes % (Manual) Monocytes % (Manual) Nucleated RBC % Seg Neutrophils # Man Lymphocytes # (Manual) Monocytes # (Manual) PT 17.6 H INR 1.31 H APTT 38.7 H D-Dimer > 99680 H ABG pH POC ABG pCO2 POC ABG pO2 ABG pO2 ABG HCO3 ABG O2 Saturation ABG Base Excess ABG Hemoglobin ABG Oxyhemoglobin ABG Sodium ABG Potassium ABG Glucose Oxyhemoglobin Sodium Potassium Chloride Carbon Dioxide BUN Creatinine Glucose POC Glucose Calcium Magnesium Ferritin Total Bilirubin AST ALT Alkaline Phosphatase Ammonia 72.0 H Lactate Dehydrogenase C-Reactive Protein NT-Pro-B Natriuret Pep 1838 H Total Protein Albumin Arterial Blood Glucose Arterial Blood Ionized Calcium Urine WBC (Auto) Coronavirus (PCR) Hepatitis C Antibody Crossmatch 03/12/21 03/12/21 03/12/21 18:54 19:04 19:21 WBC RBC Hgb Hct MCV MCH MCHC RDW Plt Count Seg Neuts % (Manual) Lymphocytes % (Manual) Monocytes % (Manual) Nucleated RBC % Seg Neutrophils # Man Lymphocytes # (Manual) Monocytes # (Manual) PT INR APTT D-Dimer ABG pH POC ABG pCO2 POC ABG pO2 ABG pO2 ABG HCO3 ABG O2 Saturation ABG Base Excess ABG Hemoglobin ABG Oxyhemoglobin ABG Sodium ABG Potassium ABG Glucose Oxyhemoglobin Sodium Potassium Chloride Carbon Dioxide BUN Creatinine Glucose POC Glucose 30 L Calcium Magnesium Ferritin 414.7 H Total Bilirubin AST ALT Alkaline Phosphatase Ammonia Lactate Dehydrogenase 287 H C-Reactive Protein 10.80 H NT-Pro-B Natriuret Pep Total Protein Albumin Arterial Blood Glucose Arterial Blood Ionized Calcium Urine WBC (Auto) Coronavirus (PCR) Hepatitis C Antibody Crossmatch 03/12/21 03/12/21 03/13/21 19:50 20:14 00:05 WBC RBC Hgb Hct MCV MCH MCHC RDW Plt Count Seg Neuts % (Manual) Lymphocytes % (Manual) Monocytes % (Manual) Nucleated RBC % Seg Neutrophils # Man Lymphocytes # (Manual) Monocytes # (Manual) PT INR APTT D-Dimer ABG pH POC ABG pCO2 POC ABG pO2 314.9 H ABG pO2 ABG HCO3 ABG O2 Saturation ABG Base Excess ABG Hemoglobin ABG Oxyhemoglobin 98.9 H ABG Sodium ABG Potassium ABG Glucose 229 H Oxyhemoglobin Sodium Potassium Chloride Carbon Dioxide BUN Creatinine Glucose POC Glucose 24 L 371 H Calcium Magnesium Ferritin Total Bilirubin AST ALT Alkaline Phosphatase Ammonia Lactate Dehydrogenase C-Reactive Protein NT-Pro-B Natriuret Pep Total Protein Albumin Arterial Blood Glucose 229 H Arterial Blood Ionized Calcium Urine WBC (Auto) Coronavirus (PCR) Hepatitis C Antibody Crossmatch 03/13/21 03/13/21 03/13/21 02:29 14:32 14:32 WBC 17.3 H RBC Hgb 8.8 L Hct 31.0 L MCV 75 L MCH 22 L MCHC 29 L RDW 27.5 H Plt Count Seg Neuts % (Manual) 91.0 H Lymphocytes % (Manual) 0 L Monocytes % (Manual) Nucleated RBC % 2.0 H Seg Neutrophils # Man 15.7 H Lymphocytes # (Manual) 0.0 L Monocytes # (Manual) 0.9 H PT INR APTT D-Dimer ABG pH POC ABG pCO2 POC ABG pO2 ABG pO2 ABG HCO3 ABG O2 Saturation ABG Base Excess ABG Hemoglobin ABG Oxyhemoglobin ABG Sodium ABG Potassium ABG Glucose Oxyhemoglobin Sodium Potassium Chloride Carbon Dioxide 16 L BUN 35 H Creatinine 1.5 H Glucose 58 L POC Glucose 128 H Calcium 7.8 L Magnesium Ferritin Total Bilirubin 1.40 H AST 82 H ALT Alkaline Phosphatase 163 H Ammonia Lactate Dehydrogenase C-Reactive Protein NT-Pro-B Natriuret Pep Total Protein 6.2 L Albumin 1.7 L Arterial Blood Glucose Arterial Blood Ionized Calcium Urine WBC (Auto) Coronavirus (PCR) Hepatitis C Antibody Crossmatch 03/13/21 03/14/21 03/14/21 Unknown 05:00 05:34 WBC 16.9 H RBC Hgb 7.9 L Hct 29.4 L MCV 80 L MCH 22 L MCHC 27 L RDW 28.6 H Plt Count Seg Neuts % (Manual) 72.0 H Lymphocytes % (Manual) 5.0 L Monocytes % (Manual) Nucleated RBC % 7.0 H Seg Neutrophils # Man 12.2 H Lymphocytes # (Manual) 0.8 L Monocytes # (Manual) PT INR APTT D-Dimer ABG pH 7.167 L POC ABG pCO2 24.6 L POC ABG pO2 ABG pO2 ABG HCO3 ABG O2 Saturation ABG Base Excess ABG Hemoglobin 9.3 L ABG Oxyhemoglobin ABG Sodium 135.2 L ABG Potassium 5.5 H ABG Glucose Oxyhemoglobin Sodium Potassium Chloride Carbon Dioxide BUN Creatinine Glucose POC Glucose Calcium Magnesium Ferritin Total Bilirubin AST ALT Alkaline Phosphatase Ammonia Lactate Dehydrogenase C-Reactive Protein NT-Pro-B Natriuret Pep Total Protein Albumin Arterial Blood Glucose Arterial Blood Ionized Calcium 4.3 L Urine WBC (Auto) Coronavirus (PCR) Positive A Hepatitis C Antibody Crossmatch 03/14/21 03/14/21 03/14/21 05:34 05:34 05:34 WBC RBC Hgb Hct MCV MCH MCHC RDW Plt Count Seg Neuts % (Manual) Lymphocytes % (Manual) Monocytes % (Manual) Nucleated RBC % Seg Neutrophils # Man Lymphocytes # (Manual) Monocytes # (Manual) PT INR APTT D-Dimer > 09541 H ABG pH POC ABG pCO2 POC ABG pO2 ABG pO2 ABG HCO3 ABG O2 Saturation ABG Base Excess ABG Hemoglobin ABG Oxyhemoglobin ABG Sodium ABG Potassium ABG Glucose Oxyhemoglobin Sodium Potassium 5.7 H D Chloride Carbon Dioxide BUN 37 H Creatinine Glucose POC Glucose Calcium 7.9 L Magnesium Ferritin 6545.0 H Total Bilirubin 1.80 H AST 4019 H ALT 501 H Alkaline Phosphatase Ammonia Lactate Dehydrogenase 2367 H C-Reactive Protein 8.40 H NT-Pro-B Natriuret Pep Total Protein 5.8 L Albumin 1.8 L Arterial Blood Glucose Arterial Blood Ionized Calcium Urine WBC (Auto) Coronavirus (PCR) Hepatitis C Antibody Crossmatch 03/14/21 03/14/21 03/14/21 05:34 07:16 07:18 WBC RBC Hgb Hct MCV MCH MCHC RDW Plt Count Seg Neuts % (Manual) Lymphocytes % (Manual) Monocytes % (Manual) Nucleated RBC % Seg Neutrophils # Man Lymphocytes # (Manual) Monocytes # (Manual) PT INR APTT D-Dimer ABG pH POC ABG pCO2 POC ABG pO2 ABG pO2 ABG HCO3 ABG O2 Saturation ABG Base Excess ABG Hemoglobin ABG Oxyhemoglobin ABG Sodium ABG Potassium ABG Glucose Oxyhemoglobin Sodium Potassium 5.4 H Chloride Carbon Dioxide 12 L BUN 38 H Creatinine 2.5 H D Glucose 29 L* POC Glucose 17 L Calcium 7.6 L Magnesium Ferritin Total Bilirubin AST ALT Alkaline Phosphatase Ammonia Lactate Dehydrogenase 2218 H C-Reactive Protein 8.30 H NT-Pro-B Natriuret Pep Total Protein Albumin Arterial Blood Glucose Arterial Blood Ionized Calcium Urine WBC (Auto) Coronavirus (PCR) Hepatitis C Antibody Reactive A Crossmatch 03/14/21 03/14/21 03/14/21 08:08 08:59 10:06 WBC RBC Hgb Hct MCV MCH MCHC RDW Plt Count Seg Neuts % (Manual) Lymphocytes % (Manual) Monocytes % (Manual) Nucleated RBC % Seg Neutrophils # Man Lymphocytes # (Manual) Monocytes # (Manual) PT 40.7 H INR 3.85 H APTT D-Dimer ABG pH POC ABG pCO2 POC ABG pO2 ABG pO2 ABG HCO3 ABG O2 Saturation ABG Base Excess ABG Hemoglobin ABG Oxyhemoglobin ABG Sodium ABG Potassium ABG Glucose Oxyhemoglobin Sodium Potassium Chloride Carbon Dioxide BUN Creatinine Glucose POC Glucose 11 L 144 H Calcium Magnesium Ferritin Total Bilirubin AST ALT Alkaline Phosphatase Ammonia Lactate Dehydrogenase C-Reactive Protein NT-Pro-B Natriuret Pep Total Protein Albumin Arterial Blood Glucose Arterial Blood Ionized Calcium Urine WBC (Auto) Coronavirus (PCR) Hepatitis C Antibody Crossmatch 03/14/21 03/15/21 03/15/21 18:15 03:42 04:17 WBC RBC Hgb Hct MCV MCH MCHC RDW Plt Count Seg Neuts % (Manual) Lymphocytes % (Manual) Monocytes % (Manual) Nucleated RBC % Seg Neutrophils # Man Lymphocytes # (Manual) Monocytes # (Manual) PT INR APTT D-Dimer ABG pH 7.088 L* POC ABG pCO2 POC ABG pO2 ABG pO2 90.7 H ABG HCO3 6.2 L ABG O2 Saturation 92.8 L ABG Base Excess -21.8 L ABG Hemoglobin 8.9 L ABG Oxyhemoglobin ABG Sodium ABG Potassium ABG Glucose Oxyhemoglobin 90.8 L Sodium Potassium 6.5 H* D Chloride Carbon Dioxide 5 L* D BUN 37 H Creatinine 2.1 H Glucose POC Glucose 124 H Calcium 7.4 L Magnesium Ferritin Total Bilirubin 2.40 H AST 3911 H ALT 663 H Alkaline Phosphatase 139 H Ammonia Lactate Dehydrogenase C-Reactive Protein NT-Pro-B Natriuret Pep Total Protein 5.8 L Albumin 1.8 L Arterial Blood Glucose Arterial Blood Ionized Calcium Urine WBC (Auto) Coronavirus (PCR) Hepatitis C Antibody Crossmatch 03/15/21 03/15/21 03/15/21 11:17 11:41 13:13 WBC RBC Hgb Hct MCV MCH MCHC RDW Plt Count Seg Neuts % (Manual) Lymphocytes % (Manual) Monocytes % (Manual) Nucleated RBC % Seg Neutrophils # Man Lymphocytes # (Manual) Monocytes # (Manual) PT INR APTT D-Dimer ABG pH POC ABG pCO2 POC ABG pO2 ABG pO2 ABG HCO3 ABG O2 Saturation ABG Base Excess ABG Hemoglobin ABG Oxyhemoglobin ABG Sodium ABG Potassium ABG Glucose Oxyhemoglobin Sodium 153 H D Potassium Chloride Carbon Dioxide 14 L D BUN 31 H Creatinine 1.8 H Glucose 262 H POC Glucose 17 L 35 L Calcium 5.8 L* D Magnesium Ferritin Total Bilirubin AST ALT Alkaline Phosphatase Ammonia Lactate Dehydrogenase C-Reactive Protein NT-Pro-B Natriuret Pep Total Protein Albumin Arterial Blood Glucose Arterial Blood Ionized Calcium Urine WBC (Auto) Coronavirus (PCR) Hepatitis C Antibody Crossmatch 03/15/21 03/15/21 03/16/21 13:53 23:52 06:30 WBC RBC Hgb Hct MCV MCH MCHC RDW Plt Count Seg Neuts % (Manual) Lymphocytes % (Manual) Monocytes % (Manual) Nucleated RBC % Seg Neutrophils # Man Lymphocytes # (Manual) Monocytes # (Manual) PT INR APTT D-Dimer ABG pH POC ABG pCO2 POC ABG pO2 ABG pO2 ABG HCO3 ABG O2 Saturation ABG Base Excess ABG Hemoglobin ABG Oxyhemoglobin ABG Sodium ABG Potassium ABG Glucose Oxyhemoglobin Sodium 146 H Potassium 3.1 L D Chloride Carbon Dioxide BUN 27 H Creatinine 1.8 H Glucose 140 H POC Glucose 40 L 142 H Calcium 7.3 L D Magnesium Ferritin Total Bilirubin 3.10 H AST 2233 H ALT 409 H Alkaline Phosphatase 156 H Ammonia Lactate Dehydrogenase C-Reactive Protein NT-Pro-B Natriuret Pep Total Protein 5.2 L Albumin 2.5 L Arterial Blood Glucose Arterial Blood Ionized Calcium Urine WBC (Auto) Coronavirus (PCR) Hepatitis C Antibody Crossmatch 03/16/21 03/16/21 03/16/21 06:30 06:30 06:30 WBC 15.5 H RBC 2.54 L Hgb 5.5 L* Hct 19.1 L* D MCV 75 L MCH 21 L MCHC 29 L RDW 26.7 H Plt Count 36 L Seg Neuts % (Manual) Lymphocytes % (Manual) Monocytes % (Manual) Nucleated RBC % Seg Neutrophils # Man Lymphocytes # (Manual) Monocytes # (Manual) PT 58.3 H INR 6.13 H* APTT D-Dimer ABG pH POC ABG pCO2 POC ABG pO2 ABG pO2 ABG HCO3 ABG O2 Saturation ABG Base Excess ABG Hemoglobin ABG Oxyhemoglobin ABG Sodium ABG Potassium ABG Glucose Oxyhemoglobin Sodium Potassium Chloride Carbon Dioxide BUN Creatinine Glucose POC Glucose Calcium Magnesium 1.60 L Ferritin Total Bilirubin AST ALT Alkaline Phosphatase Ammonia Lactate Dehydrogenase C-Reactive Protein NT-Pro-B Natriuret Pep Total Protein Albumin Arterial Blood Glucose Arterial Blood Ionized Calcium Urine WBC (Auto) Coronavirus (PCR) Hepatitis C Antibody Crossmatch 03/16/21 03/16/21 03/16/21 08:00 12:10 13:19 WBC RBC Hgb Hct MCV MCH MCHC RDW Plt Count Seg Neuts % (Manual) Lymphocytes % (Manual) Monocytes % (Manual) Nucleated RBC % Seg Neutrophils # Man Lymphocytes # (Manual) Monocytes # (Manual) PT INR APTT D-Dimer ABG pH POC ABG pCO2 POC ABG pO2 ABG pO2 ABG HCO3 ABG O2 Saturation ABG Base Excess ABG Hemoglobin ABG Oxyhemoglobin ABG Sodium ABG Potassium ABG Glucose Oxyhemoglobin Sodium Potassium Chloride Carbon Dioxide BUN Creatinine Glucose POC Glucose 59 L 110 H Calcium Magnesium Ferritin Total Bilirubin AST ALT Alkaline Phosphatase Ammonia Lactate Dehydrogenase C-Reactive Protein NT-Pro-B Natriuret Pep Total Protein Albumin Arterial Blood Glucose Arterial Blood Ionized Calcium Urine WBC (Auto) Coronavirus (PCR) Hepatitis C Antibody Crossmatch See Detail 03/16/21 03/16/21 03/16/21 22:15 22:15 22:15 WBC 16.3 H RBC Hgb 9.7 L D Hct 31.9 L D MCV 79 L MCH 24 L MCHC 30 L RDW 26.0 H Plt Count 27 L Seg Neuts % (Manual) Lymphocytes % (Manual) Monocytes % (Manual) Nucleated RBC % Seg Neutrophils # Man Lymphocytes # (Manual) Monocytes # (Manual) PT 30.3 H INR 2.63 H APTT D-Dimer ABG pH POC ABG pCO2 POC ABG pO2 ABG pO2 ABG HCO3 ABG O2 Saturation ABG Base Excess ABG Hemoglobin ABG Oxyhemoglobin ABG Sodium ABG Potassium ABG Glucose Oxyhemoglobin Sodium Potassium 3.3 L Chloride Carbon Dioxide BUN Creatinine Glucose POC Glucose Calcium Magnesium 2.50 H Ferritin Total Bilirubin AST ALT Alkaline Phosphatase Ammonia Lactate Dehydrogenase C-Reactive Protein NT-Pro-B Natriuret Pep Total Protein Albumin Arterial Blood Glucose Arterial Blood Ionized Calcium Urine WBC (Auto) Coronavirus (PCR) Hepatitis C Antibody Crossmatch 03/17/21 03/17/21 03/17/21 00:21 00:46 02:34 WBC RBC Hgb Hct MCV MCH MCHC RDW Plt Count Seg Neuts % (Manual) Lymphocytes % (Manual) Monocytes % (Manual) Nucleated RBC % Seg Neutrophils # Man Lymphocytes # (Manual) Monocytes # (Manual) PT INR APTT D-Dimer ABG pH 7.614 H POC ABG pCO2 23.4 L POC ABG pO2 70.5 L ABG pO2 ABG HCO3 ABG O2 Saturation ABG Base Excess ABG Hemoglobin 9.9 L ABG Oxyhemoglobin 93.7 L ABG Sodium ABG Potassium 3.0 L ABG Glucose Oxyhemoglobin Sodium Potassium Chloride Carbon Dioxide BUN Creatinine Glucose POC Glucose 53 L 55 L Calcium Magnesium Ferritin Total Bilirubin AST ALT Alkaline Phosphatase Ammonia Lactate Dehydrogenase C-Reactive Protein NT-Pro-B Natriuret Pep Total Protein Albumin Arterial Blood Glucose Arterial Blood Ionized Calcium 4.0 L Urine WBC (Auto) Coronavirus (PCR) Hepatitis C Antibody Crossmatch 03/17/21 03/17/21 03/17/21 04:19 04:19 04:19 WBC 15.0 H RBC Hgb 9.3 L Hct 30.3 L MCV 78 L MCH 24 L MCHC 31 L RDW 26.2 H Plt Count 20 L Seg Neuts % (Manual) Lymphocytes % (Manual) Monocytes % (Manual) Nucleated RBC % Seg Neutrophils # Man Lymphocytes # (Manual) Monocytes # (Manual) PT 29.8 H INR 2.58 H APTT D-Dimer ABG pH POC ABG pCO2 POC ABG pO2 ABG pO2 ABG HCO3 ABG O2 Saturation ABG Base Excess ABG Hemoglobin ABG Oxyhemoglobin ABG Sodium ABG Potassium ABG Glucose Oxyhemoglobin Sodium 147 H Potassium 3.0 L Chloride Carbon Dioxide BUN 33 H Creatinine 1.6 H Glucose POC Glucose Calcium 8.0 L Magnesium Ferritin Total Bilirubin 4.30 H AST 1427 H ALT 340 H Alkaline Phosphatase Ammonia Lactate Dehydrogenase C-Reactive Protein NT-Pro-B Natriuret Pep Total Protein 5.4 L Albumin 2.3 L Arterial Blood Glucose Arterial Blood Ionized Calcium Urine WBC (Auto) Coronavirus (PCR) Hepatitis C Antibody Crossmatch 03/17/21 03/17/21 03/17/21 04:19 13:37 18:25 WBC RBC Hgb 9.7 L Hct 31.6 L MCV MCH MCHC RDW Plt Count Seg Neuts % (Manual) Lymphocytes % (Manual) Monocytes % (Manual) Nucleated RBC % Seg Neutrophils # Man Lymphocytes # (Manual) Monocytes # (Manual) PT INR APTT D-Dimer ABG pH POC ABG pCO2 POC ABG pO2 ABG pO2 ABG HCO3 ABG O2 Saturation ABG Base Excess ABG Hemoglobin ABG Oxyhemoglobin ABG Sodium ABG Potassium ABG Glucose Oxyhemoglobin Sodium Potassium Chloride Carbon Dioxide BUN Creatinine Glucose POC Glucose 148 H Calcium Magnesium 2.40 H Ferritin Total Bilirubin AST ALT Alkaline Phosphatase Ammonia Lactate Dehydrogenase C-Reactive Protein NT-Pro-B Natriuret Pep Total Protein Albumin Arterial Blood Glucose Arterial Blood Ionized Calcium Urine WBC (Auto) Coronavirus (PCR) Hepatitis C Antibody Crossmatch 03/17/21 03/18/21 03/18/21 23:46 04:14 05:09 WBC RBC Hgb Hct MCV MCH MCHC RDW Plt Count Seg Neuts % (Manual) Lymphocytes % (Manual) Monocytes % (Manual) Nucleated RBC % Seg Neutrophils # Man Lymphocytes # (Manual) Monocytes # (Manual) PT INR APTT D-Dimer ABG pH 7.534 H POC ABG pCO2 POC ABG pO2 73.1 L ABG pO2 ABG HCO3 ABG O2 Saturation ABG Base Excess ABG Hemoglobin 10.1 L ABG Oxyhemoglobin 93.6 L ABG Sodium ABG Potassium 3.3 L ABG Glucose 193 H Oxyhemoglobin Sodium Potassium Chloride Carbon Dioxide BUN Creatinine Glucose POC Glucose 169 H 167 H Calcium Magnesium Ferritin Total Bilirubin AST ALT Alkaline Phosphatase Ammonia Lactate Dehydrogenase C-Reactive Protein NT-Pro-B Natriuret Pep Total Protein Albumin Arterial Blood Glucose 193 H Arterial Blood Ionized Calcium 4.4 L Urine WBC (Auto) Coronavirus (PCR) Hepatitis C Antibody Crossmatch 03/18/21 03/18/21 03/18/21 06:20 06:20 11:49 WBC 13.5 H RBC Hgb 9.3 L Hct 30.7 L MCV 79 L MCH 24 L MCHC 30 L RDW 27.0 H Plt Count 13 L* Seg Neuts % (Manual) Lymphocytes % (Manual) Monocytes % (Manual) Nucleated RBC % Seg Neutrophils # Man Lymphocytes # (Manual) Monocytes # (Manual) PT INR APTT D-Dimer ABG pH POC ABG pCO2 POC ABG pO2 ABG pO2 ABG HCO3 ABG O2 Saturation ABG Base Excess ABG Hemoglobin ABG Oxyhemoglobin ABG Sodium ABG Potassium ABG Glucose Oxyhemoglobin Sodium 147 H Potassium 3.3 L Chloride Carbon Dioxide BUN 42 H Creatinine Glucose 192 H POC Glucose 191 H Calcium 8.1 L Magnesium Ferritin Total Bilirubin 5.50 H AST 619 H ALT 248 H Alkaline Phosphatase Ammonia Lactate Dehydrogenase C-Reactive Protein NT-Pro-B Natriuret Pep Total Protein 5.2 L Albumin 2.0 L Arterial Blood Glucose Arterial Blood Ionized Calcium Urine WBC (Auto) Coronavirus (PCR) Hepatitis C Antibody Crossmatch 03/18/21 03/18/21 03/19/21 17:03 23:49 04:00 WBC RBC Hgb Hct MCV MCH MCHC RDW Plt Count Seg Neuts % (Manual) Lymphocytes % (Manual) Monocytes % (Manual) Nucleated RBC % Seg Neutrophils # Man Lymphocytes # (Manual) Monocytes # (Manual) PT INR APTT D-Dimer ABG pH POC ABG pCO2 POC ABG pO2 ABG pO2 ABG HCO3 ABG O2 Saturation ABG Base Excess ABG Hemoglobin ABG Oxyhemoglobin ABG Sodium ABG Potassium ABG Glucose Oxyhemoglobin Sodium 146 H Potassium Chloride 107.4 H Carbon Dioxide 31 H BUN 42 H Creatinine 0.6 L Glucose 230 H POC Glucose 214 H 192 H Calcium 8.3 L Magnesium 2.50 H Ferritin Total Bilirubin 7.40 H AST 354 H ALT 221 H Alkaline Phosphatase 154 H Ammonia Lactate Dehydrogenase C-Reactive Protein NT-Pro-B Natriuret Pep Total Protein 5.8 L Albumin 2.1 L Arterial Blood Glucose Arterial Blood Ionized Calcium Urine WBC (Auto) Coronavirus (PCR) Hepatitis C Antibody Crossmatch 03/19/21 03/19/21 03/19/21 04:00 04:00 04:00 WBC 16.0 H RBC Hgb 9.9 L Hct 32.8 L MCV 80 L MCH 24 L MCHC 30 L RDW 27.6 H Plt Count 24 L Seg Neuts % (Manual) Lymphocytes % (Manual) Monocytes % (Manual) Nucleated RBC % Seg Neutrophils # Man Lymphocytes # (Manual) Monocytes # (Manual) PT 23.6 H INR 1.91 H APTT D-Dimer > 31836 H ABG pH POC ABG pCO2 POC ABG pO2 ABG pO2 ABG HCO3 ABG O2 Saturation ABG Base Excess ABG Hemoglobin ABG Oxyhemoglobin ABG Sodium ABG Potassium ABG Glucose Oxyhemoglobin Sodium Potassium Chloride Carbon Dioxide BUN Creatinine Glucose POC Glucose Calcium Magnesium Ferritin 730.0 H Total Bilirubin AST ALT Alkaline Phosphatase Ammonia Lactate Dehydrogenase C-Reactive Protein NT-Pro-B Natriuret Pep Total Protein Albumin Arterial Blood Glucose Arterial Blood Ionized Calcium Urine WBC (Auto) Coronavirus (PCR) Hepatitis C Antibody Crossmatch 03/19/21 03/19/21 03/19/21 04:00 05:43 11:28 WBC RBC Hgb Hct MCV MCH MCHC RDW Plt Count Seg Neuts % (Manual) Lymphocytes % (Manual) Monocytes % (Manual) Nucleated RBC % Seg Neutrophils # Man Lymphocytes # (Manual) Monocytes # (Manual) PT INR APTT D-Dimer ABG pH POC ABG pCO2 POC ABG pO2 ABG pO2 ABG HCO3 ABG O2 Saturation ABG Base Excess ABG Hemoglobin ABG Oxyhemoglobin ABG Sodium ABG Potassium ABG Glucose Oxyhemoglobin Sodium Potassium Chloride Carbon Dioxide BUN Creatinine Glucose POC Glucose 220 H 198 H Calcium Magnesium Ferritin Total Bilirubin AST ALT Alkaline Phosphatase Ammonia Lactate Dehydrogenase 915 H C-Reactive Protein 4.30 H NT-Pro-B Natriuret Pep Total Protein Albumin Arterial Blood Glucose Arterial Blood Ionized Calcium Urine WBC (Auto) Coronavirus (PCR) Hepatitis C Antibody Crossmatch 03/19/21 03/19/21 03/20/21 15:56 23:28 05:18 WBC RBC Hgb Hct MCV MCH MCHC RDW Plt Count Seg Neuts % (Manual) Lymphocytes % (Manual) Monocytes % (Manual) Nucleated RBC % Seg Neutrophils # Man Lymphocytes # (Manual) Monocytes # (Manual) PT INR APTT D-Dimer ABG pH POC ABG pCO2 POC ABG pO2 ABG pO2 57.3 L ABG HCO3 31.3 H ABG O2 Saturation 88.8 L ABG Base Excess 6.5 H ABG Hemoglobin 10.8 L ABG Oxyhemoglobin ABG Sodium ABG Potassium ABG Glucose Oxyhemoglobin 86.8 L Sodium Potassium Chloride Carbon Dioxide BUN Creatinine Glucose POC Glucose 225 H 187 H Calcium Magnesium Ferritin Total Bilirubin AST ALT Alkaline Phosphatase Ammonia Lactate Dehydrogenase C-Reactive Protein NT-Pro-B Natriuret Pep Total Protein Albumin Arterial Blood Glucose Arterial Blood Ionized Calcium Urine WBC (Auto) Coronavirus (PCR) Hepatitis C Antibody Crossmatch 03/20/21 03/20/21 03/20/21 05:19 05:45 05:45 WBC 14.7 H RBC Hgb 10.4 L Hct 34.3 L MCV 81 L MCH 25 L MCHC 30 L RDW 28.1 H Plt Count 14 L* Seg Neuts % (Manual) Lymphocytes % (Manual) Monocytes % (Manual) Nucleated RBC % Seg Neutrophils # Man Lymphocytes # (Manual) Monocytes # (Manual) PT INR APTT D-Dimer ABG pH POC ABG pCO2 POC ABG pO2 ABG pO2 ABG HCO3 ABG O2 Saturation ABG Base Excess ABG Hemoglobin ABG Oxyhemoglobin ABG Sodium ABG Potassium ABG Glucose Oxyhemoglobin Sodium 147 H Potassium Chloride 107.5 H Carbon Dioxide BUN 40 H Creatinine 0.4 L Glucose 191 H POC Glucose 163 H Calcium Magnesium Ferritin Total Bilirubin 9.30 H AST 193 H ALT 186 H Alkaline Phosphatase 137 H Ammonia Lactate Dehydrogenase C-Reactive Protein NT-Pro-B Natriuret Pep Total Protein 5.8 L Albumin 2.1 L Arterial Blood Glucose Arterial Blood Ionized Calcium Urine WBC (Auto) Coronavirus (PCR) Hepatitis C Antibody Crossmatch 03/20/21 03/20/21 03/21/21 11:50 17:57 01:10 WBC RBC Hgb Hct MCV MCH MCHC RDW Plt Count Seg Neuts % (Manual) Lymphocytes % (Manual) Monocytes % (Manual) Nucleated RBC % Seg Neutrophils # Man Lymphocytes # (Manual) Monocytes # (Manual) PT INR APTT D-Dimer ABG pH POC ABG pCO2 POC ABG pO2 ABG pO2 ABG HCO3 ABG O2 Saturation ABG Base Excess ABG Hemoglobin ABG Oxyhemoglobin ABG Sodium ABG Potassium ABG Glucose Oxyhemoglobin Sodium Potassium Chloride Carbon Dioxide BUN Creatinine Glucose POC Glucose 175 H 142 H 47 L Calcium Magnesium Ferritin Total Bilirubin AST ALT Alkaline Phosphatase Ammonia Lactate Dehydrogenase C-Reactive Protein NT-Pro-B Natriuret Pep Total Protein Albumin Arterial Blood Glucose Arterial Blood Ionized Calcium Urine WBC (Auto) Coronavirus (PCR) Hepatitis C Antibody Crossmatch 03/21/21 03/21/21 03/21/21 01:11 02:45 08:56 WBC RBC Hgb Hct MCV MCH MCHC RDW Plt Count Seg Neuts % (Manual) Lymphocytes % (Manual) Monocytes % (Manual) Nucleated RBC % Seg Neutrophils # Man Lymphocytes # (Manual) Monocytes # (Manual) PT INR APTT D-Dimer ABG pH POC ABG pCO2 POC ABG pO2 ABG pO2 ABG HCO3 ABG O2 Saturation ABG Base Excess ABG Hemoglobin ABG Oxyhemoglobin ABG Sodium ABG Potassium ABG Glucose Oxyhemoglobin Sodium Potassium Chloride Carbon Dioxide BUN Creatinine Glucose POC Glucose 54 L 118 H 25 L Calcium Magnesium Ferritin Total Bilirubin AST ALT Alkaline Phosphatase Ammonia Lactate Dehydrogenase C-Reactive Protein NT-Pro-B Natriuret Pep Total Protein Albumin Arterial Blood Glucose Arterial Blood Ionized Calcium Urine WBC (Auto) Coronavirus (PCR) Hepatitis C Antibody Crossmatch 03/21/21 03/21/21 03/21/21 08:59 09:21 09:35 WBC RBC Hgb Hct MCV MCH MCHC RDW Plt Count Seg Neuts % (Manual) Lymphocytes % (Manual) Monocytes % (Manual) Nucleated RBC % Seg Neutrophils # Man Lymphocytes # (Manual) Monocytes # (Manual) PT INR APTT D-Dimer ABG pH POC ABG pCO2 POC ABG pO2 ABG pO2 ABG HCO3 ABG O2 Saturation ABG Base Excess ABG Hemoglobin ABG Oxyhemoglobin ABG Sodium ABG Potassium ABG Glucose Oxyhemoglobin Sodium Potassium Chloride Carbon Dioxide BUN Creatinine Glucose POC Glucose 24 L 14 L 48 L Calcium Magnesium Ferritin Total Bilirubin AST ALT Alkaline Phosphatase Ammonia Lactate Dehydrogenase C-Reactive Protein NT-Pro-B Natriuret Pep Total Protein Albumin Arterial Blood Glucose Arterial Blood Ionized Calcium Urine WBC (Auto) Coronavirus (PCR) Hepatitis C Antibody Crossmatch 03/21/21 03/21/21 03/21/21 10:20 12:20 Unknown WBC RBC Hgb Hct MCV MCH MCHC RDW Plt Count Seg Neuts % (Manual) Lymphocytes % (Manual) Monocytes % (Manual) Nucleated RBC % Seg Neutrophils # Man Lymphocytes # (Manual) Monocytes # (Manual) PT INR APTT D-Dimer ABG pH POC ABG pCO2 POC ABG pO2 ABG pO2 ABG HCO3 ABG O2 Saturation ABG Base Excess ABG Hemoglobin ABG Oxyhemoglobin ABG Sodium ABG Potassium ABG Glucose Oxyhemoglobin Sodium 146 H Potassium Chloride Carbon Dioxide 21 L D BUN 51 H Creatinine 0.6 L Glucose 67 L POC Glucose 68 L Calcium Magnesium Ferritin Total Bilirubin 13.10 H AST 163 H ALT 149 H Alkaline Phosphatase Ammonia Lactate Dehydrogenase C-Reactive Protein NT-Pro-B Natriuret Pep Total Protein 5.6 L Albumin 1.9 L Arterial Blood Glucose Arterial Blood Ionized Calcium Urine WBC (Auto) 24.0 H Coronavirus (PCR) Hepatitis C Antibody Crossmatch 03/21/21 03/21/21 03/21/21 Unknown Unknown Unknown WBC RBC Hgb Hct MCV MCH MCHC RDW Plt Count Seg Neuts % (Manual) Lymphocytes % (Manual) Monocytes % (Manual) Nucleated RBC % Seg Neutrophils # Man Lymphocytes # (Manual) Monocytes # (Manual) PT INR APTT D-Dimer > 11291 H ABG pH POC ABG pCO2 POC ABG pO2 ABG pO2 ABG HCO3 ABG O2 Saturation ABG Base Excess ABG Hemoglobin ABG Oxyhemoglobin ABG Sodium ABG Potassium ABG Glucose Oxyhemoglobin Sodium Potassium Chloride Carbon Dioxide BUN Creatinine Glucose POC Glucose Calcium Magnesium Ferritin 443.8 H Total Bilirubin AST ALT Alkaline Phosphatase Ammonia Lactate Dehydrogenase 693 H C-Reactive Protein 5.00 H NT-Pro-B Natriuret Pep Total Protein Albumin Arterial Blood Glucose Arterial Blood Ionized Calcium Urine WBC (Auto) Coronavirus (PCR) Hepatitis C Antibody Crossmatch 03/21/21 Unknown WBC 16.4 H RBC Hgb 10.4 L Hct MCV MCH 25 L MCHC 29 L RDW 28.4 H Plt Count 13 L* Seg Neuts % (Manual) Lymphocytes % (Manual) Monocytes % (Manual) Nucleated RBC % Seg Neutrophils # Man Lymphocytes # (Manual) Monocytes # (Manual) PT INR APTT D-Dimer ABG pH POC ABG pCO2 POC ABG pO2 ABG pO2 ABG HCO3 ABG O2 Saturation ABG Base Excess ABG Hemoglobin ABG Oxyhemoglobin ABG Sodium ABG Potassium ABG Glucose Oxyhemoglobin Sodium Potassium Chloride Carbon Dioxide BUN Creatinine Glucose POC Glucose Calcium Magnesium Ferritin Total Bilirubin AST ALT Alkaline Phosphatase Ammonia Lactate Dehydrogenase C-Reactive Protein NT-Pro-B Natriuret Pep Total Protein Albumin Arterial Blood Glucose Arterial Blood Ionized Calcium Urine WBC (Auto) Coronavirus (PCR) Hepatitis C Antibody Crossmatch
--- NOTE | 2021-03-21 14:13 | Procedure Note ---
Date of procedure: 03/21/21 Pre-op diagnosis: ESLD with Cirrhosis Post-op diagnosis: same Procedure: Diagnostic Paracentesis Informed Consent obtained from patient's Magui GARCIA Patient was positioned in supine position. Abdomen was visualized and examined with ultrasound for appropriate site placement. The site was marked and prepped using chlorhexidine scrubs. Anesthesia was achieved with 1% lidocaine. Using a 18g needle and a 60cc syringe, the needle was inserted and advanced with negative pressure into the abdominal cavity until yellow colored fluid was aspirated. Approximately 60 mL of ascitic fluid was collected and sent for laboratory analysis. The needle was then withdrawn and a sterile pressure dressing was applied over the puncture. The patient tolerated the procedure well without any immediate complications. Anesthesia: local Surgeon: KASIA DAVIS (Supervised by Dr. Wood) Estimated blood loss: none Condition: critical Disposition: ICU
--- NOTE | 2021-03-21 14:15 | Progress Note ---
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 Hospital Course to Date: 03/13: Awaiting PCCM, GI, ID input. Ordered CTA chest to rule out PE. Fluids increased due to concern for intravascular depletion. 03/14: Worsening hepatic transaminits, hypoglycemia noted. D/w GI and CCM regarding worsening liver function, likely shock liver. Will attempt [facility] transfer for hepatology services, call placed. Worsening renal function, consult placed to nephrology. 03/15: This morning decision was made by nephrology to initiate hemodialysis. Femoral Vas-Cath placed. Patient remains on Levophed and vasopressin and bicarbonate drip. Despite bicarbonate drip patient was acidotic on ABG and given additional 2 A of bicarb. Added phenyl epi gtt for HD if needed. I updated the daughter today while obtaining consent. 03/16: Patient had CT head today per neurology, supratherapeutic INR of six and given vitamin K and FFP follow, thrombocytopenia noted, patient is off of vasopressors. Metabolic acidosis resolved therefore bicarb drip discontinued. Hemoglobin 5.5 given 2 units PRBC. Potassium and mag repleted. NG tube to low intermittent suction. FiO2 decreased. serial h/h 03/17: Patient remains off vasopressors, fentanyl drip started on low-dose, vent changes per CCM and potassium repleted aggressively. GI okay to start tube feeding. LFTs improving. 03/18: Decrease in tidal volume today per CCM, holding sedation as patient is not responding. PSV today. LFTS better, k and mag repleted, TF at goal. SSI to high dose scale. Severe thrombocytopenia and given platelets today. Updated his daughter today regarding status, PSV trial and plts. She inquired about CTH which showed no acute finding but showed chronic changes which were communicated. 03/19: RONALD overnight. On low dose sedation this am, patient open eyes spontaneously not following any commands. High gastric residual, abdomen still distended, IV reglan added. TF held per protocol. Mild improvement in thrombocytopenia, d/w CCM transfuse if plt less than 20. 03/20: Remains on the vent and on low dose fentanly. Plan for SAT /SBT today. Per CCM if patient mentation remains the same he will most like need a trach/PEG. Pl an for possible famil meeting to discuss POC. Plt droped again this am, will continue to monitor for no s/s of any active bleeding, patient is stable. 03/11: Febrile, hypotensive with tachycardia this am, back on pressors. IVF bolus and will panculture patient. Also diagnostic paracentesis performed at the bedside to r/t SBP as a possible source, culture sent. ID is also following, IV abx per ID. Necrotic right 5th digit noted, RUE doppler with right radial and ulnar stenosis, Vascular Surgery consulted. Patient is also severely hypoglycemic this, BG as low as 10 treated per hypoglycemic protocol. TF on hold due to high residual, D10w gtt initiated, Q1hr BG check for now. Assessment and Plan #Acute Hepatic/Metabolic Encephalopathy - Remains unresponsive, not on any sedation - CT head with no abnormality - Ammonia improved, no improvement in mental status - Avoid benzodiazepine to reduce the possibility of delirium - PRN analgesia for CPOT greater than 3 - Maintenance of sleep-wake cycle #CV:Septic Shock #Tachycardia #Hypotension - ST and hypotensive this am - Back on pressors this am - s/p 1L LR - Maintain adequate perfusion - Continue rehydration with cont. IVF - Continue blood pressure monitor per protocol - Titrate pressors to maintain a MAP above 65 #Acute Hypoxic Respiratory Failure #COVID Pneumonia - Intubated 03/12 in the ED - Vent Setting:CMV-65%,6,14,380 - This am ABG noted - CCM consulted, appreciate recommendations - Continue IV Steroids and Nebs per CCM - VAP bundle addressed - Aspiration precaution HOB above 30 - Daily SBT and SAT trials as tolerated - Daily ABG and CXR - Continue SPO2 monitoring for SPO2 goal above 92% #GI:Transaminitis #Hyperammonemia-improved #Shock Liver #h/o ESLD 2/2EtOH cirrhosis and hep C with recurrent ascites - ELevated LFTs most likely related to ESLD - MELD NA: 22 - Abdominal ultrasound shows moderate to large volume ascites throughout all 4 quadrants of the abdomen - Ammonia improved, Lactulose on hold - GI consulted, appreciate recommendations - Conservative management per GI - Avoid hepatotoxins - Trend LFTs and ammonia level - No residual this am plan to resume TF - Reglan Added - Continue PPI - Transfer to [facility] for liver failure was denied #Acute kidney injury most likely ATN- improved #Hypokalemia-resolved - Presented with hyperkalemia and Scr. as high as high 2.5 - S/p HD on 03/15, renal function and hyperkalemia improved - Nephrology consulted,appreciate recommendation - Strict intake and output - Avoid nephrotoxic medications; Renally dose medications - Monitor and replace electrolytes as needed - Trend BMP, mag, & phos #ID: Septic Shock #COVID Pneumonia #Possible Spontaneous Bacterial Peritonitis(SBP) #Leukocytosis - COVID swab positive - Imagings with bilateral pulmonary opacities - Blood cultures and sputum culture were negative - Febrile this am, WBcs mostly unchanged - orders placed for UA, blood culture, and sputum culture - 03/21 s/p Diagnostic paracentesis at the bedside to r/o SBP - ID on consult - Continue IV Abx per ID - X1 dose of Remdesevir, held due to renal function. Patient not candidate for Actemra - Daily CBC monitor #Heme:Severe Thrombocytopenia #Microcytic Anemia #Supratherapeutic INR- resolved - Plt dropped as low as 13, s/p 1unit of Platelets on 03/18 - Plt remains low - Will continue to monitor for now - H&H remains stable, s/p 2units of PRBCs - CTA chest negative for pulmonary embolism - s/p vit K and 1 unit of FFP for high INR - Continue to trend INR - Transfuse hemoglobin less than 7 - Monitor for s/s of bleeding - AC on hold - SCD to bilateral lower extremities while in bed - Trend CBC #Endo:Severe Hypoglycemia - BG as low as 14 this am treated per protocol - BG check now Q1hr - Avoid Hypoglycemia - Hypoglycemic protocol The high probability of a clinically significant, sudden or life threatening deterioration of the [multi] system(s) required my full and direct attention, intervention and personal management. The aggregate critical care time was [60] minutes. This time is in addition to time spent performing reported procedures but includes the following: [x] Data Review and interpretation [x] Patient assessment and monitoring of vital signs [x] Documentation [x] Medication orders and management Disposition Plan: ICU Total Time Spent with Patient (Minutes): 60 History Interval history: Patient seen and examined at the bedside. Intubated and unresponsive. Open eyes spontaneously but does not follow commands. Febrile, hypoytensive with tachycardia this am. Levophed gtt was initiated. Patient is also severely hypoglycemic this am, BG as low as 14, treated per hypoglycemic protocol. Per RN, TF held overnight due to high residual. Hospitalist Physical - Constitutional Vitals: Temp Pulse Resp BP Pulse Ox 100.4 F H 120 H 12 100/57 92 03/21/21 12:00 03/21/21 12:15 03/21/21 12:15 03/21/21 12:15 03/21/21 12:15 General appearance: Present: mild distress, cachectic, other (On the ventilator, unresponsive) - EENT Eyes: Present: PERRL - Respiratory Respiratory effort: accessory muscle use Respiratory: bilateral: rhonchi - Cardiovascular Rhythm: regular Heart Sounds: Present: S1 & S2 - Extremities Extremities: abnormal Extremity abnormal: black (5th digits necrosis) Peripheral Pulses: within normal limits - Abdominal General gastrointestinal: distended, rigid, hypoactive bowel sounds - Integumentary Integumentary: Present: warm, dry - Psychiatric Psychiatric: other (On the ventilator, unresponsive) - Neurologic Neurologic: other (On the ventilator, unresponsive) - Allied Health Allied health notes reviewed: nursing HEART Score - HEART Score Troponin: Troponin T < 0.010 ng/mL (0.00-0.029) 03/12/21 18:54 Results - Labs CBC & Chem 7: 03/21/21 Unknown 03/21/21 Unknown Labs: Laboratory Last Values WBC 16.4 K/mm3 (4.5-11.0) H 03/21/21 Unknown RBC 4.24 M/mm3 (3.65-5.03) 03/21/21 Unknown Hgb 10.4 gm/dl (11.8-15.2) L 03/21/21 Unknown Hct 35.8 % (35.5-45.6) 03/21/21 Unknown MCV 85 fl (84-94) 03/21/21 Unknown MCH 25 pg (28-32) L 03/21/21 Unknown MCHC 29 % (32-34) L 03/21/21 Unknown RDW 28.4 % (13.2-15.2) H 03/21/21 Unknown Plt Count 13 K/mm3 (140-440) L* 03/21/21 Unknown Add Manual Diff Complete 03/14/21 05:34 Total Counted 100 03/14/21 05:34 Seg Neutrophils % Circuit Design Engineer 03/14/21 05:34 Seg Neuts % (Manual) 72.0 % (40.0-70.0) H 03/14/21 05:34 Band Neutrophils % 16.0 % 03/14/21 05:34 Lymphocytes % (Manual) 5.0 % (13.4-35.0) L 03/14/21 05:34 Reactive Lymphs % (Man) 0 % 03/14/21 05:34 Monocytes % (Manual) 4.0 % (0.0-7.3) 03/14/21 05:34 Eosinophils % (Manual) 0 % (0.0-4.3) 03/14/21 05:34 Basophils % (Manual) 0 % (0.0-1.8) 03/14/21 05:34 Metamyelocytes % 1.0 % 03/14/21 05:34 Myelocytes % 2.0 % 03/14/21 05:34 Promyelocytes % 0 % 03/14/21 05:34 Blast Cells % 0 % 03/14/21 05:34 Nucleated RBC % 7.0 % (0.0-0.9) H 03/14/21 05:34 Seg Neutrophils # Man 12.2 K/mm3 (1.8-7.7) H 03/14/21 05:34 Band Neutrophils # 2.7 K/mm3 03/14/21 05:34 Lymphocytes # (Manual) 0.8 K/mm3 (1.2-5.4) L 03/14/21 05:34 Abs React Lymphs (Man) 0.0 K/mm3 03/14/21 05:34 Monocytes # (Manual) 0.7 K/mm3 (0.0-0.8) 03/14/21 05:34 Eosinophils # (Manual) 0.0 K/mm3 (0.0-0.4) 03/14/21 05:34 Basophils # (Manual) 0.0 K/mm3 (0.0-0.1) 03/14/21 05:34 Metamyelocytes # 0.2 K/mm3 03/14/21 05:34 Myelocytes # 0.3 K/mm3 03/14/21 05:34 Promyelocytes # 0.0 K/mm3 03/14/21 05:34 Blast Cells # 0.0 K/mm3 03/14/21 05:34 Pathologist Review 03/14/21 05:34 WBC Morphology Not Reportable 03/14/21 05:34 Hypersegmented Neuts Not Reportable 03/14/21 05:34 Hyposegmented Neuts Not Reportable 03/14/21 05:34 Hypogranular Neuts Not Reportable 03/14/21 05:34 Smudge Cells Not Reportable 03/14/21 05:34 Toxic Granulation 1+ 03/14/21 05:34 Toxic Vacuolation Not Reportable 03/14/21 05:34 Dohle Bodies Not Reportable 03/14/21 05:34 Pelger-Huet Anomaly Not Reportable 03/14/21 05:34 Saqib Rods Not Reportable 03/14/21 05:34 Platelet Estimate Consistent w auto 03/14/21 05:34 Clumped Platelets Circuit Design Engineer 03/14/21 05:34 Plt Clumps, EDTA Not Reportable 03/14/21 05:34 Large Platelets Few 03/14/21 05:34 Giant Platelets Not Reportable 03/14/21 05:34 Platelet Satelliting Not Reportable 03/14/21 05:34 Plt Morphology Comment Not Reportable 03/14/21 05:34 RBC Morphology Not Reportable 03/14/21 05:34 Dimorphic RBCs Not Reportable 03/14/21 05:34 Polychromasia 1+ 03/14/21 05:34 Hypochromasia 2+ 03/14/21 05:34 Poikilocytosis Not Reportable 03/14/21 05:34 Anisocytosis 2+ 03/14/21 05:34 Microcytosis 1+ 03/14/21 05:34 Macrocytosis Not Reportable 03/14/21 05:34 Spherocytes Not Reportable 03/14/21 05:34 Pappenheimer Bodies Not Reportable 03/14/21 05:34 Sickle Cells Not Reportable 03/14/21 05:34 Target Cells 1+ 03/14/21 05:34 Tear Drop Cells Not Reportable 03/14/21 05:34 Ovalocytes Not Reportable 03/14/21 05:34 Helmet Cells Not Reportable 03/14/21 05:34 Swift-Nittany Bodies Not Reportable 03/14/21 05:34 [place] Rings Not Reportable 03/14/21 05:34 Obdulio Cells 1+ 03/14/21 05:34 Bite Cells Not Reportable 03/14/21 05:34 Crenated Cell Not Reportable 03/14/21 05:34 Elliptocytes Not Reportable 03/14/21 05:34 Acanthocytes (Spur) Not Reportable 03/14/21 05:34 Rouleaux Not Reportable 03/14/21 05:34 Hemoglobin C Crystals Not Reportable 03/14/21 05:34 Schistocytes Not Reportable 03/14/21 05:34 Malaria parasites Not Reportable 03/14/21 05:34 Wolf Bodies Not Reportable 03/14/21 05:34 Hem Pathologist Commnt Sent to pathology 03/14/21 05:34 PT 23.6 Sec. (12.2-14.9) H 03/19/21 04:00 INR 1.91 (0.87-1.13) H 03/19/21 04:00 APTT 38.7 Sec. (24.2-36.6) H 03/12/21 18:54 D-Dimer > 88355 ng/mlDDU (0-234) H 03/21/21 Unknown ABG pH 7.448 pH Units (7.350-7.450) 03/20/21 05:18 POC ABG pCO2 38.3 mmHg (32.0-48.0) 03/18/21 04:14 ABG pCO2 46.3 mm Hg 03/20/21 05:18 POC ABG pO2 73.1 mmHg (83-108) L 03/18/21 04:14 ABG pO2 57.3 mm Hg (80.0-90.0) L 03/20/21 05:18 POC ABG HCO3 31.6 03/18/21 04:14 ABG HCO3 31.3 mmol/L (20.0-26.0) H 03/20/21 05:18 ABG O2 Saturation 88.8 % (95.0-99.0) L 03/20/21 05:18 ABG O2 Content 13.2 (0.0-44) 03/20/21 05:18 POC ABG Base Excess 8.4 03/18/21 04:14 ABG Base Excess 6.5 mmol/L (-2.0-3.0) H 03/20/21 05:18 ABG Hemoglobin 10.8 gm/dl (14.0-18.0) L 03/20/21 05:18 ABG Oxyhemoglobin 93.6 (94-98) L 03/18/21 04:14 ABG Carboxyhemoglobin 1.8 % (0.0-5.0) 03/20/21 05:18 ABG Methemoglobin 0.5 % (0.0-1.5) 03/20/21 05:18 ABG Sodium 140.2 mmol/L (136.0-145.0) 03/18/21 04:14 ABG Potassium 3.3 mmol/L (3.40-4.50) L 03/18/21 04:14 ABG Chloride 102.0 mmol/L (98-107) 03/18/21 04:14 ABG Glucose 193 mg/dL (65-95) H 03/18/21 04:14 Oxyhemoglobin 86.8 % (95.0-99.0) L 03/20/21 05:18 Carboxyhemoglobin 0.7 (0.5-1.5) 03/18/21 04:14 FiO2 40 % 03/20/21 05:18 FiO2 % 40.0 03/18/21 04:14 Sodium 146 mmol/L (137-145) H 03/21/21 Unknown Potassium 4.8 mmol/L (3.6-5.0) D 03/21/21 Unknown Chloride 106.9 mmol/L (98-107) 03/21/21 Unknown Carbon Dioxide 21 mmol/L (22-30) L D 03/21/21 Unknown Anion Gap 23 mmol/L 03/21/21 Unknown BUN 51 mg/dL (9-20) H 03/21/21 Unknown Creatinine 0.6 mg/dL (0.8-1.3) L 03/21/21 Unknown Estimated GFR > 60 ml/min 03/21/21 Unknown BUN/Creatinine Ratio 85 % 03/21/21 Unknown Glucose 67 mg/dL (75-100) L 03/21/21 Unknown POC Glucose 100 mg/dL (70-105) 03/21/21 13:19 Calcium 9.8 mg/dL (8.4-10.2) 03/21/21 Unknown Phosphorus 3.50 mg/dL (2.5-4.5) 03/20/21 05:48 Magnesium 2.20 mg/dL (1.7-2.3) 03/20/21 05:48 Ferritin 443.8 ng/mL (30.0-300.0) H 03/21/21 Unknown Total Bilirubin 13.10 mg/dL (0.1-1.2) H 03/21/21 Unknown AST 163 units/L (5-40) H 03/21/21 Unknown ALT 149 units/L (7-56) H 03/21/21 Unknown Alkaline Phosphatase 119 units/L (35-129) 03/21/21 Unknown Ammonia 27.0 umol/L (25-60) 03/20/21 05:48 Lactate Dehydrogenase 693 units/L (91-180) H 03/21/21 Unknown Troponin T < 0.010 ng/mL (0.00-0.029) 03/12/21 18:54 C-Reactive Protein 5.00 mg/dL (0.00-1.30) H 03/21/21 Unknown NT-Pro-B Natriuret Pep 1838 pg/mL (0-900) H 03/12/21 18:54 Total Protein 5.6 g/dL (6.3-8.2) L 03/21/21 Unknown Albumin 1.9 g/dL (3.9-5) L 03/21/21 Unknown Albumin/Globulin Ratio 0.5 % 03/21/21 Unknown Procalcitonin 8.67 ng/mL (<0.15) 03/12/21 19:04 Arterial Blood Glucose 193 mg/dL (65-95) H 03/18/21 04:14 Arterial Blood Ionized Calcium 4.4 mg/dL (4.6-5.3) L 03/18/21 04:14 Urine Color Sabrina (Yellow) 03/21/21 10:20 Urine Turbidity Cloudy (Clear) 03/21/21 10:20 Urine pH 5.0 (5.0-7.0) 03/21/21 10:20 Ur Specific Cow[place] 1.019 (1.003-1.030) 03/21/21 10:20 Urine Protein 30 mg/dl mg/dL (Negative) 03/21/21 10:20 Urine Glucose (UA) Neg mg/dL (Negative) 03/21/21 10:20 Urine Ketones Neg mg/dL (Negative) 03/21/21 10:20 Urine Blood Mod (Negative) 03/21/21 10:20 Urine Nitrite Neg (Negative) 03/21/21 10:20 Urine Bilirubin Sm (Negative) 03/21/21 10:20 Urine Ictotest Positive (Negative) 03/21/21 10:20 Urine Urobilinogen 2.0 mg/dL (<2.0) 03/21/21 10:20 Ur Leukocyte Esterase Neg (Negative) 03/21/21 10:20 Urine WBC (Auto) 24.0 /HPF (0.0-6.0) H 03/21/21 10:20 Urine RBC (Auto) 8.0 /HPF (0.0-6.0) 03/21/21 10:20 U Epithel Cells (Auto) 3.0 /HPF (0-13.0) 03/21/21 10:20 Hyaline Casts 1 /LPF 03/21/21 10:20 Granular Casts 9 /LPF 03/21/21 10:20 Urine Mucus Few /HPF 03/21/21 10:20 Random Vancomycin 5.6 ug/mL (0-40.0) 03/16/21 06:30 Coronavirus (PCR) Positive (Negative) A 03/13/21 Unknown Hepatitis A IgM Ab Non-reactive (NonReactive) 03/14/21 05:34 Hep Bs Antigen Nonreactive (Negative) 03/14/21 05:34 Hep B Core IgM Ab Non-reactive (NonReactive) 03/14/21 05:34 Hepatitis C Antibody Reactive (NonReactive) A 03/14/21 05:34 Blood Type B POSITIVE 03/16/21 08:00 Antibody Screen Negative 03/16/21 08:00 Crossmatch See Detail 03/16/21 08:00 Microbiology: Microbiology 03/21/21 10:46 Peripheral/Venous Blood Culture - Preliminary Culture in Progress 03/21/21 10:46 Peripheral/Venous Blood Culture - Preliminary Culture in Progress [place]/IV: Voiding Method Indwelling Catheter Active Medications - Current Medications Current Medications: Generic Name Dose Route Start Last Admin Trade Name Freq PRN Reason Stop Dose Admin Albuterol 2.5 mg 03/12/21 21:29 Albuterol 2.5 Mg/3 Ml Nebu IH Q4HRT PRN Shortness Of Breath Lipase/Protease/Amylase 1 each 03/17/21 12:00 Lipase 10,500/Protease 25,000/Amylase 43,750 (Units) Dr Cap FEEDTUBE PRN PRN For Clogged Feeding Tube Dexamethasone 6 mg 03/13/21 10:00 03/21/21 10:50 Dexamethasone 4 Mg/Ml Vial IV 03/22/21 10:01 6 mg DAILY STEPHEN Administration Dextrose 0 ml 03/15/21 10:00 03/21/21 09:36 Dextrose 50% In Water (25gm) 50 Ml Syringe IV 50 ml Q30MIN PRN Administration Hypoglycemia Protocol Fentanyl 50 mcg 03/13/21 16:03 03/20/21 18:06 Fentanyl 100 Mcg/2 Ml Inj IV 50 mcg Q10MIN PRN Administration ANALGESIA Ferrous Sulfate 300 mg 03/13/21 10:00 03/20/21 22:10 Ferrous Sulfate 300 Mg (60mg Elemental Iron) / 5 Ml Oral Liqd PO Not Given BID STEPHEN Folic Acid 1 mg 03/13/21 10:00 03/21/21 10:48 Folic Acid 1 Mg Tab PO 1 mg QDAY STEPHEN Administration Hydralazine HCl 5 mg 03/20/21 20:07 Hydralazine 20 Mg/1 Ml Inj IV Q30MIN PRN Hypertension Hydrophilic Ointment 1 applic 03/12/21 20:02 Lip Therapy Vaseline TP Q2HR PRN Dry Lips NORepinephrine/NS 8 MG-250 ML 8 mg in 250 mls @ 3.75 mls/hr 03/13/21 21:00 03/21/21 10:17 Norepinephrine/Ns 8 Mg-250 Ml (Double Conc) IV 0 mcg/min TITRATE STEPHEN 0 mls/hr Titration Protocol 2 MCG/MIN Sodium Chloride 100 mls @ 999 mls/hr 03/15/21 10:00 Nacl 0.9% IV VICKEY PRN Hypotension Propofol 1,000 mg in 100 mls @ 1.836 mls/hr 03/20/21 21:00 03/21/21 08:55 Diprivan 10 Mg/Ml IV 0 mcg/kg/min TITR STEPHEN 0 mls/hr Titration Protocol 5 MCG/KG/MIN Fentanyl Citrate 2,000 mcg in 100 mls @ 3.06 mls/hr 03/20/21 21:00 03/21/21 08:55 Fentanyl Drip Premix IV 0 mcg/kg/hr TITR STEPHEN 0 mls/hr Titration Protocol 1 MCG/KG/HR Dextrose 1,000 mls @ 75 mls/hr 03/21/21 10:00 D10w IV DIRECT STEPHEN Ceftriaxone Sodium 1 gm in 50 mls @ 100 mls/hr 03/21/21 13:00 Rocephin/Ns 1 Gm/50 Ml IV Q24HR [facility] Protocol Insulin Human Lispro 0 unit 03/19/21 08:30 03/21/21 05:41 Insulin Lispro 100 Unit/Ml SUB-Q Not Given Q6HR [facility] Protocol Lansoprazole 30 mg 03/18/21 10:00 03/21/21 10:49 Lansoprazole 30 Mg Solutab FEEDTUBE 30 mg QDAY STEPHEN Administration Metoclopramide HCl 10 mg 03/21/21 12:00 03/21/21 13:13 Metoclopramide 10 Mg/2 Ml Inj IV 10 mg Q6HR STEPHEN Administration Multi-Ingred Cream/Lotion/Oil/Oint 1 applic 03/12/21 20:02 Mineral Oil/Petrolatum, White Ophth Oint 3.5 Gm OU Q4HR PRN Dry Eye(s) Ondansetron HCl 4 mg 03/12/21 21:29 Ondansetron 4 Mg/2 Ml Inj IV Q8H PRN Nausea And Vomiting Senna/Docusate Sodium 1 tab 03/12/21 22:00 03/21/21 10:49 Sennosides/Docusate Sodium 8.6/50 Mg Tab FEEDTUBE 1 tab BID STEPHEN Administration Simple Syrup 15 ml 03/17/21 12:00 03/21/21 09:06 Simple Syrup 15 Ml FEEDTUBE 15 ml PRN PRN Administration Hypoglycemia Simple Syrup 30 ml 03/17/21 12:00 Simple Syrup 15 Ml FEEDTUBE PRN PRN Hypoglycemia Sodium Bicarbonate 325 mg 03/17/21 12:00 Sodium Bicarbonate 325 Mg Tab FEEDTUBE PRN PRN For Clogged Feeding Tube Sodium Chloride 10 ml 03/12/21 22:00 03/20/21 22:00 Sodium Chloride 0.9% 10 Ml Flush Syringe IV 10 ml BID STEPHEN Administration Sodium Chloride 10 ml 03/12/21 21:29 Sodium Chloride 0.9% 10 Ml Flush Syringe IV PRN PRN LINE FLUSH Thiamine HCl 100 mg 03/13/21 10:00 03/21/21 10:48 Thiamine 100 Mg Tab PO 100 mg QDAY STEPHEN Administration Nutrition/Malnutrition Assess - Dietary Evaluation Nutrition/Malnutrition Findings: Nutrition Notes Start: 03/13/21 17:20 Freq: Status: Active Protocol: Document 03/19/21 13:04 THOR (Rec: 03/19/21 13:09 THOR [id number]) Nutrition Notes Initial or Follow up Reassessment Current Diagnosis Acute Kidney Injury, Respiratory Failure Other Pertinent Diagnosis COVID-19 pneu, ESLD, Anemia, Ascites, Hep C Current Diet TF - Vital AF 1.2 at 60ml/hr Labs/Tests Na 146 BUN 42 BG 230 Mg 2.5 Elevated LFTs Pertinent Medications Lactulose Height 5 ft 11 in Weight 61.2 kg [place] Body Weight (kg) 78.18 BMI 18.8 Weight Status Underweight Subjective/Other Information RN reports high gastric residuals this am (>250ml). TF on hold; one dose of Reglan administered this am. Pt remains on vent support. Burn Absent Trauma Absent Minimum of two criteria No #1 Nutrition Diagnosis Inadequate oral intake Diagnosis Progress(for reassessment Continues documentation) Is patient on ventilator? Yes Is Patient Ambulatory and/or Out of Bed No REE-([facility]-confined to bed) 1708.452 Kcal/Kg value to use for calculation 30 Approximate Energy Requirements Using 1836 kcal/Kg Calculation Used for Recommendations Kcal/kg Additional Notes Pro needs 1.2-2g/k-122g/ day Fluid needs 1ml/kcal Nutrition Intervention Nutrition Support: Resume TF when medically feasible Goal #1 Resume TF to meet nutrient needs Follow-Up By: 03/20/21 Additional Comments F/U: TF restart/tolerance <JOSIE HESS - Last Filed: 03/24/21 12:16> Assessment and Plan Assessment and plan: I saw and evaluated the patient. Discussed with the nurse practitioner and agree with their findings and plan as documented in this note. Hospitalist Physical - Constitutional Vitals: Temp Pulse Resp BP Pulse Ox 97.4 F L 130 H 0 L 52/38 0 L 03/22/21 23:42 03/23/21 01:45 03/23/21 02:01 03/23/21 02:01 03/23/21 02:10 HEART Score - HEART Score Troponin: Troponin T < 0.010 ng/mL (0.00-0.029) 03/12/21 18:54 Results - Labs CBC & Chem 7: 03/22/21 04:00 03/22/21 23:20 Labs: Laboratory Last Values WBC 18.8 K/mm3 (4.5-11.0) H 03/22/21 04:00 RBC 3.97 M/mm3 (3.65-5.03) 03/22/21 04:00 Hgb 9.8 gm/dl (11.8-15.2) L 03/22/21 04:00 Hct 34.0 % (35.5-45.6) L 03/22/21 04:00 MCV 86 fl (84-94) 03/22/21 04:00 MCH 25 pg (28-32) L 03/22/21 04:00 MCHC 29 % (32-34) L 03/22/21 04:00 RDW 29.6 % (13.2-15.2) H 03/22/21 04:00 Plt Count 26 K/mm3 (140-440) L D 03/22/21 04:00 Add Manual Diff Complete 03/14/21 05:34 Total Counted 100 03/14/21 05:34 Seg Neutrophils % Circuit Design Engineer 03/14/21 05:34 Seg Neuts % (Manual) 72.0 % (40.0-70.0) H 03/14/21 05:34 Band Neutrophils % 16.0 % 03/14/21 05:34 Lymphocytes % (Manual) 5.0 % (13.4-35.0) L 03/14/21 05:34 Reactive Lymphs % (Man) 0 % 03/14/21 05:34 Monocytes % (Manual) 4.0 % (0.0-7.3) 03/14/21 05:34 Eosinophils % (Manual) 0 % (0.0-4.3) 03/14/21 05:34 Basophils % (Manual) 0 % (0.0-1.8) 03/14/21 05:34 Metamyelocytes % 1.0 % 03/14/21 05:34 Myelocytes % 2.0 % 03/14/21 05:34 Promyelocytes % 0 % 03/14/21 05:34 Blast Cells % 0 % 03/14/21 05:34 Nucleated RBC % 7.0 % (0.0-0.9) H 03/14/21 05:34 Seg Neutrophils # Man 12.2 K/mm3 (1.8-7.7) H 03/14/21 05:34 Band Neutrophils # 2.7 K/mm3 03/14/21 05:34 Lymphocytes # (Manual) 0.8 K/mm3 (1.2-5.4) L 03/14/21 05:34 Abs React Lymphs (Man) 0.0 K/mm3 03/14/21 05:34 Monocytes # (Manual) 0.7 K/mm3 (0.0-0.8) 03/14/21 05:34 Eosinophils # (Manual) 0.0 K/mm3 (0.0-0.4) 03/14/21 05:34 Basophils # (Manual) 0.0 K/mm3 (0.0-0.1) 03/14/21 05:34 Metamyelocytes # 0.2 K/mm3 03/14/21 05:34 Myelocytes # 0.3 K/mm3 03/14/21 05:34 Promyelocytes # 0.0 K/mm3 03/14/21 05:34 Blast Cells # 0.0 K/mm3 03/14/21 05:34 Pathologist Review 03/14/21 05:34 WBC Morphology Not Reportable 03/14/21 05:34 Hypersegmented Neuts Not Reportable 03/14/21 05:34 Hyposegmented Neuts Not Reportable 03/14/21 05:34 Hypogranular Neuts Not Reportable 03/14/21 05:34 Smudge Cells Not Reportable 03/14/21 05:34 Toxic Granulation 1+ 03/14/21 05:34 Toxic Vacuolation Not Reportable 03/14/21 05:34 Dohle Bodies Not Reportable 03/14/21 05:34 Pelger-Huet Anomaly Not Reportable 03/14/21 05:34 Saqib Rods Not Reportable 03/14/21 05:34 Platelet Estimate Consistent w auto 03/14/21 05:34 Clumped Platelets Circuit Design Engineer 03/14/21 05:34 Plt Clumps, EDTA Not Reportable 03/14/21 05:34 Large Platelets Few 03/14/21 05:34 Giant Platelets Not Reportable 03/14/21 05:34 Platelet Satelliting Not Reportable 03/14/21 05:34 Plt Morphology Comment Not Reportable 03/14/21 05:34 RBC Morphology Not Reportable 03/14/21 05:34 Dimorphic RBCs Not Reportable 03/14/21 05:34 Polychromasia 1+ 03/14/21 05:34 Hypochromasia 2+ 03/14/21 05:34 Poikilocytosis Not Reportable 03/14/21 05:34 Anisocytosis 2+ 03/14/21 05:34 Microcytosis 1+ 03/14/21 05:34 Macrocytosis Not Reportable 03/14/21 05:34 Spherocytes Not Reportable 03/14/21 05:34 Pappenheimer Bodies Not Reportable 03/14/21 05:34 Sickle Cells Not Reportable 03/14/21 05:34 Target Cells 1+ 03/14/21 05:34 Tear Drop Cells Not Reportable 03/14/21 05:34 Ovalocytes Not Reportable 03/14/21 05:34 Helmet Cells Not Reportable 03/14/21 05:34 Swift-N[place]any Bodies Not Reportable 03/14/21 05:34 [place] Rings Not Reportable 03/14/21 05:34 Obdulio Cells 1+ 03/14/21 05:34 Bite Cells Not Reportable 03/14/21 05:34 Crenated Cell Not Reportable 03/14/21 05:34 Elliptocytes Not Reportable 03/14/21 05:34 Acanthocytes (Spur) Not Reportable 03/14/21 05:34 Rouleaux Not Reportable 03/14/21 05:34 Hemoglobin C Crystals Not Reportable 03/14/21 05:34 Schistocytes Not Reportable 03/14/21 05:34 Malaria parasites Not Reportable 03/14/21 05:34 Wolf Bodies Not Reportable 03/14/21 05:34 Hem Pathologist Commnt Sent to pathology 03/14/21 05:34 PT 23.6 Sec. (12.2-14.9) H 03/19/21 04:00 INR 1.91 (0.87-1.13) H 03/19/21 04:00 APTT 38.7 Sec. (24.2-36.6) H 03/12/21 18:54 D-Dimer > 43081 ng/mlDDU (0-234) H 03/21/21 Unknown ABG pH 7.093 pH Units (7.350-7.450) L* 03/23/21 01:40 POC ABG pCO2 38.3 mmHg (32.0-48.0) 03/18/21 04:14 ABG pCO2 71.1 mm Hg 03/23/21 01:40 POC ABG pO2 73.1 mmHg (83-108) L 03/18/21 04:14 ABG pO2 28.4 mm Hg (80.0-90.0) L* 03/23/21 01:40 POC ABG HCO3 31.6 03/18/21 04:14 ABG HCO3 21.2 mmol/L (20.0-26.0) 03/23/21 01:40 ABG O2 Saturation 26.3 % (95.0-99.0) L 03/23/21 01:40 ABG O2 Content 3.5 (0.0-44) 03/23/21 01:40 POC ABG Base Excess 8.4 03/18/21 04:14 ABG Base Excess -8.8 mmol/L (-2.0-3.0) L 03/23/21 01:40 ABG Hemoglobin 9.6 gm/dl (14.0-18.0) L 03/23/21 01:40 ABG Oxyhemoglobin 93.6 (94-98) L 03/18/21 04:14 ABG Carboxyhemoglobin 1.4 % (0.0-5.0) 03/23/21 01:40 ABG Methemoglobin 0.9 % (0.0-1.5) 03/23/21 01:40 ABG Sodium 140.2 mmol/L (136.0-145.0) 03/18/21 04:14 ABG Potassium 3.3 mmol/L (3.40-4.50) L 03/18/21 04:14 ABG Chloride 102.0 mmol/L (98-107) 03/18/21 04:14 ABG Glucose 193 mg/dL (65-95) H 03/18/21 04:14 Oxyhemoglobin 25.7 % (95.0-99.0) L 03/23/21 01:40 Carboxyhemoglobin 0.7 (0.5-1.5) 03/18/21 04:14 FiO2 100 % 03/23/21 01:40 FiO2 % 40.0 03/18/21 04:14 Sodium 145 mmol/L (137-145) 03/22/21 04:00 Potassium 5.1 mmol/L (3.6-5.0) H 03/22/21 04:00 Chloride 104.8 mmol/L (98-107) 03/22/21 04:00 Carbon Dioxide 18 mmol/L (22-30) L 03/22/21 04:00 Anion Gap 27 mmol/L 03/22/21 04:00 BUN 73 mg/dL (9-20) H 03/22/21 04:00 Creatinine 1.2 mg/dL (0.8-1.3) D 03/22/21 04:00 Estimated GFR > 60 ml/min 03/22/21 04:00 BUN/Creatinine Ratio 61 % 03/22/21 04:00 Glucose 150 mg/dL (75-100) H 03/22/21 23:20 POC Glucose 120 mg/dL (70-105) H 03/23/21 01:33 Calcium 9.2 mg/dL (8.4-10.2) 03/22/21 04:00 Phosphorus 3.50 mg/dL (2.5-4.5) 03/20/21 05:48 Magnesium 2.20 mg/dL (1.7-2.3) 03/20/21 05:48 Ferritin 443.8 ng/mL (30.0-300.0) H 03/21/21 Unknown Total Bilirubin 14.00 mg/dL (0.1-1.2) H 03/22/21 04:00 AST 146 units/L (5-40) H 03/22/21 04:00 ALT 132 units/L (7-56) H 03/22/21 04:00 Alkaline Phosphatase 108 units/L (35-129) 03/22/21 04:00 Ammonia 27.0 umol/L (25-60) 03/20/21 05:48 Lactate Dehydrogenase 693 units/L (91-180) H 03/21/21 Unknown Troponin T < 0.010 ng/mL (0.00-0.029) 03/12/21 18:54 C-Reactive Protein 5.00 mg/dL (0.00-1.30) H 03/21/21 Unknown NT-Pro-B Natriuret Pep 1838 pg/mL (0-900) H 03/12/21 18:54 Total Protein 5.2 g/dL (6.3-8.2) L 03/22/21 04:00 Albumin 1.8 g/dL (3.9-5) L 03/22/21 04:00 Albumin/Globulin Ratio 0.5 % 03/22/21 04:00 Procalcitonin 11.74 ng/mL (<0.15) 03/21/21 10:46 Arterial Blood Glucose 193 mg/dL (65-95) H 03/18/21 04:14 Arterial Blood Ionized Calcium 4.4 mg/dL (4.6-5.3) L 03/18/21 04:14 Urine Color Sabrina (Yellow) 03/21/21 10:20 Urine Turbidity Cloudy (Clear) 03/21/21 10:20 Urine pH 5.0 (5.0-7.0) 03/21/21 10:20 Ur Specific [place] 1.019 (1.003-1.030) 03/21/21 10:20 Urine Protein 30 mg/dl mg/dL (Negative) 03/21/21 10:20 Urine Glucose (UA) Neg mg/dL (Negative) 03/21/21 10:20 Urine Ketones Neg mg/dL (Negative) 03/21/21 10:20 Urine Blood Mod (Negative) 03/21/21 10:20 Urine Nitrite Neg (Negative) 03/21/21 10:20 Urine Bilirubin Sm (Negative) 03/21/21 10:20 Urine Ictotest Positive (Negative) 03/21/21 10:20 Urine Urobilinogen 2.0 mg/dL (<2.0) 03/21/21 10:20 Ur Leukocyte Esterase Neg (Negative) 03/21/21 10:20 Urine WBC (Auto) 24.0 /HPF (0.0-6.0) H 03/21/21 10:20 Urine RBC (Auto) 8.0 /HPF (0.0-6.0) 03/21/21 10:20 U Epithel Cells (Auto) 3.0 /HPF (0-13.0) 03/21/21 10:20 Hyaline Casts 1 /LPF 03/21/21 10:20 Granular Casts 9 /LPF 03/21/21 10:20 Urine Mucus Few /HPF 03/21/21 10:20 Fluid Type Paracentesis 03/21/21 13:30 Fluid Color Yellow 03/21/21 13:30 Fluid Appearance Hazy 03/21/21 13:30 Fluid WBC 15 /mm3 03/21/21 13:30 Fluid RBC 221 /mm3 03/21/21 13:30 Fluid Seg Neutrophils 50.0 % 03/21/21 13:30 Fluid Lymphocytes 35.0 % 03/21/21 13:30 Fluid Monocytes 15.0 % 03/21/21 13:30 Random Vancomycin 5.6 ug/mL (0-40.0) 03/16/21 06:30 Coronavirus (PCR) Positive (Negative) A 03/13/21 Unknown Hepatitis A IgM Ab Non-reactive (NonReactive) 03/14/21 05:34 Hep Bs Antigen Nonreactive (Negative) 03/14/21 05:34 Hep B Core IgM Ab Non-reactive (NonReactive) 03/14/21 05:34 Hepatitis C Antibody Reactive (NonReactive) A 03/14/21 05:34 Blood Type B POSITIVE 03/16/21 08:00 Antibody Screen Negative 03/16/21 08:00 Crossmatch See Detail 03/16/21 08:00 Microbiology: Microbiology 03/21/21 10:46 Peripheral/Venous Blood Culture - Preliminary NO GROWTH AFTER 72 HOURS 03/21/21 10:46 Peripheral/Venous Blood Culture - Preliminary NO GROWTH AFTER 72 HOURS 03/21/21 13:30 Ascities Fluid Body Fluid Culture - Preliminary 03/21/21 13:40 Tracheal Aspirate Sputum Culture - Final 03/21/21 10:20 Urine,Clean Catch Urine Culture - Final NO GROWTH AFTER 48 HOURS [place]/IV: Voiding Method Indwelling Catheter Nutrition/Malnutrition Assess - Dietary Evaluation Nutrition/Malnutrition Findings: Nutrition Notes Start: 03/13/21 17:20 Freq: Status: Discharge Protocol: Document 03/21/21 14:19 GERALD (Rec: 03/21/21 14:47 GERALD [email or web address]) Nutrition Notes Initial or Follow up Brief Note Current Diet TF remains on hold. Height 5 ft 11 in Weight 61.2 kg [place] Body Weight (kg) 78.18 BMI 18.8 Weight change and time frame No body weight change reported . Weight Status Underweight Subjective/Other Information RD consult on TF resume and tolerance. TF remains on hold. Pt continues on Mechanical Ventilation. As per MD, discussion with family regarding Trach and PEG due to mental satus and poor prognosis. TF resumed 9:30 03/20 @ 20 ml/ hr. TF stopped 02:50 03/21, stomach distended and labored breathing, 250 ml residuals. Incident with necrotic fingers on 03/20. Percent of energy/protein needs met: TF remains on hold. Nutrition Intervention Follow-Up By: 03/23/21 Additional Comments F/U: TF restart/tolerance
[2021-03-21 15:04] LABS: Total Cells Counted 100 /mm3
[2021-03-21] MEDS: FERROUS SULFATE 300 MG (60MG Elemental Iron) / 5 mL ORAL LIQD PO SCH ×3 (17:19→21:28)
[2021-03-21] MEDS: cefTRIAXone/NS 1 GM/50 ML 1 GM/50 ML BAG IV SCH (17:51)
--- NOTE | 2021-03-21 18:15 | Progress Note ---
Subjective Date of service: 03/21/21 Principal diagnosis: Liver, anemia Objective - Vital Signs Vital signs: Vital Signs - 12hr 03/21/21 03/21/21 03/21/21 06:15 06:30 06:45 Temperature Pulse Rate 123 H 124 H 123 H Pulse Rate [ From Monitor] Respiratory 12 12 13 Rate Blood Pressure 91/62 87/60 85/57 O2 Sat by Pulse 94 94 94 Oximetry 03/21/21 03/21/21 03/21/21 07:00 07:15 07:30 Temperature Pulse Rate 124 H 123 H 123 H Pulse Rate [ From Monitor] Respiratory 12 12 16 Rate Blood Pressure 84/55 84/58 81/55 O2 Sat by Pulse 93 95 94 Oximetry 03/21/21 03/21/21 03/21/21 07:45 08:00 08:15 Temperature 101.1 F H Pulse Rate 122 H 122 H 120 H Pulse Rate [ 121 H From Monitor] Respiratory 11 L 20 13 Rate Blood Pressure 85/55 82/55 81/50 O2 Sat by Pulse 93 92 93 Oximetry 03/21/21 03/21/21 03/21/21 08:30 08:45 08:58 Temperature Pulse Rate 123 H 120 H Pulse Rate [ From Monitor] Respiratory 14 13 Rate Blood Pressure 81/49 72/42 O2 Sat by Pulse 93 83 L 93 Oximetry 03/21/21 03/21/21 03/21/21 08:59 09:00 09:15 Temperature Pulse Rate 124 H 121 H 121 H Pulse Rate [ From Monitor] Respiratory 13 15 Rate Blood Pressure 84/55 73/48 70/45 O2 Sat by Pulse 95 94 92 Oximetry 03/21/21 03/21/21 03/21/21 09:30 09:45 10:00 Temperature Pulse Rate 124 H 127 H 128 H Pulse Rate [ From Monitor] Respiratory 15 12 12 Rate Blood Pressure 89/57 95/60 104/64 O2 Sat by Pulse 94 92 92 Oximetry 03/21/21 03/21/21 03/21/21 10:15 10:30 10:45 Temperature Pulse Rate 128 H 124 H 123 H Pulse Rate [ From Monitor] Respiratory 12 13 14 Rate Blood Pressure 114/66 96/60 97/58 O2 Sat by Pulse 93 94 95 Oximetry 03/21/21 03/21/21 03/21/21 11:00 11:15 11:23 Temperature Pulse Rate 120 H 120 H 132 H Pulse Rate [ From Monitor] Respiratory 12 12 Rate Blood Pressure 102/61 110/61 84/55 O2 Sat by Pulse 95 96 95 Oximetry 03/21/21 03/21/21 03/21/21 11:30 11:45 12:00 Temperature 100.4 F H Pulse Rate 120 H 119 H 119 H Pulse Rate [ 121 H From Monitor] Respiratory 13 12 20 Rate Blood Pressure 92/59 93/57 92/55 O2 Sat by Pulse 95 94 92 Oximetry 03/21/21 03/21/21 03/21/21 12:15 12:30 12:45 Temperature Pulse Rate 120 H 119 H 119 H Pulse Rate [ From Monitor] Respiratory 12 12 13 Rate Blood Pressure 100/57 93/57 94/66 O2 Sat by Pulse 92 94 96 Oximetry 03/21/21 03/21/21 03/21/21 13:00 13:15 13:30 Temperature Pulse Rate 117 H 120 H 118 H Pulse Rate [ From Monitor] Respiratory 13 19 13 Rate Blood Pressure 101/61 141/89 103/68 O2 Sat by Pulse 97 98 97 Oximetry 03/21/21 03/21/21 03/21/21 13:45 14:00 14:15 Temperature Pulse Rate 120 H 117 H 118 H Pulse Rate [ From Monitor] Respiratory 14 14 15 Rate Blood Pressure 102/59 100/61 97/60 O2 Sat by Pulse 97 97 98 Oximetry 03/21/21 03/21/21 03/21/21 14:30 14:32 14:45 Temperature Pulse Rate 116 H 120 H 117 H Pulse Rate [ From Monitor] Respiratory 14 15 Rate Blood Pressure 106/61 100/57 96/60 O2 Sat by Pulse 98 92 98 Oximetry 03/21/21 03/21/21 03/21/21 15:00 15:15 15:30 Temperature Pulse Rate 118 H 117 H 117 H Pulse Rate [ From Monitor] Respiratory 14 14 14 Rate Blood Pressure 106/60 97/62 106/62 O2 Sat by Pulse 98 97 97 Oximetry 03/21/21 03/21/21 03/21/21 15:45 16:00 16:15 Temperature 99.9 F H Pulse Rate 116 H 117 H 115 H Pulse Rate [ 104 H From Monitor] Respiratory 14 18 16 Rate Blood Pressure 104/63 103/61 97/60 O2 Sat by Pulse 98 97 97 Oximetry 03/21/21 03/21/21 03/21/21 16:30 16:45 16:50 Temperature Pulse Rate 111 H 113 H Pulse Rate [ From Monitor] Respiratory 15 Rate Blood Pressure 97/60 106/62 O2 Sat by Pulse 96 92 Oximetry 03/21/21 17:00 Temperature Pulse Rate 111 H Pulse Rate [ From Monitor] Respiratory 13 Rate Blood Pressure 103/67 O2 Sat by Pulse 93 Oximetry - Lab 03/21/21 Unknown 03/21/21 Unknown Most recent lab results ABG pH 7.448 pH Units (7.350-7.450) 03/20/21 05:18 ABG pCO2 46.3 mm Hg 03/20/21 05:18 ABG pO2 57.3 mm Hg (80.0-90.0) L 03/20/21 05:18 ABG HCO3 31.3 mmol/L (20.0-26.0) H 03/20/21 05:18 ABG O2 Saturation 88.8 % (95.0-99.0) L 03/20/21 05:18 Calcium 9.8 mg/dL (8.4-10.2) 03/21/21 Unknown Phosphorus 3.50 mg/dL (2.5-4.5) 03/20/21 05:48 Magnesium 2.20 mg/dL (1.7-2.3) 03/20/21 05:48 Medications & Allergies - Medications Allergies/Adverse Reactions: Allergies No Known Allergies Allergy (Verified 02/27/21 20:19) Home Medications: Home Medications Medication Instructions Recorded Confirmed Last Taken Type Ferrous Sulfate [Feosol 325 MG tab] 325 mg PO BID #30 tablet 03/04/21 Unknown Rx Folic Acid [Folvite] 1 mg PO QDAY #30 tablet 03/04/21 Unknown Rx Spironolactone [Aldactone] 50 mg PO QDAY #30 tablet 03/04/21 Unknown Rx Thiamine [Vitamin B-1] 100 mg PO QDAY #30 tablet 03/04/21 Unknown Rx Active Medications: Generic Name Dose Route Start Last Admin Trade Name Freq PRN Reason Stop Dose Admin Albuterol 2.5 mg 03/12/21 21:29 Albuterol 2.5 Mg/3 Ml Nebu IH Q4HRT PRN Shortness Of Breath Lipase/Protease/Amylase 1 each 03/17/21 12:00 Lipase 10,500/Protease 25,000/Amylase 43,750 (Units) Dr Cap FEEDTUBE PRN PRN For Clogged Feeding Tube Dexamethasone 6 mg 03/13/21 10:00 03/21/21 10:50 Dexamethasone 4 Mg/Ml Vial IV 03/22/21 10:01 6 mg DAILY STEPHEN Administration Dextrose 0 ml 03/15/21 10:00 03/21/21 09:36 Dextrose 50% In Water (25gm) 50 Ml Syringe IV 50 ml Q30MIN PRN Administration Hypoglycemia Protocol Fentanyl 50 mcg 03/13/21 16:03 03/20/21 18:06 Fentanyl 100 Mcg/2 Ml Inj IV 50 mcg Q10MIN PRN Administration ANALGESIA Ferrous Sulfate 300 mg 03/13/21 10:00 03/21/21 17:50 Ferrous Sulfate 300 Mg (60mg Elemental Iron) / 5 Ml Oral Liqd PO 300 mg BID STEPHEN Administration Folic Acid 1 mg 03/13/21 10:00 03/21/21 10:48 Folic Acid 1 Mg Tab PO 1 mg QDAY STEPHEN Administration Hydralazine HCl 5 mg 03/20/21 20:07 Hydralazine 20 Mg/1 Ml Inj IV Q30MIN PRN Hypertension Hydrophilic Ointment 1 applic 03/12/21 20:02 Lip Therapy Vaseline TP Q2HR PRN Dry Lips NORepinephrine/NS 8 MG-250 ML 8 mg in 250 mls @ 3.75 mls/hr 03/13/21 21:00 03/21/21 10:17 Norepinephrine/Ns 8 Mg-250 Ml (Double Conc) IV 0 mcg/min TITRATE STEPHEN 0 mls/hr Titration Protocol 2 MCG/MIN Sodium Chloride 100 mls @ 999 mls/hr 03/15/21 10:00 Nacl 0.9% IV VICKEY PRN Hypotension Propofol 1,000 mg in 100 mls @ 1.836 mls/hr 03/20/21 21:00 03/21/21 18:01 Diprivan 10 Mg/Ml IV 0 mcg/kg/min TITR STEPHEN 0 mls/hr Titration Protocol 5 MCG/KG/MIN Fentanyl Citrate 2,000 mcg in 100 mls @ 3.06 mls/hr 03/20/21 21:00 03/21/21 18:01 Fentanyl Drip Premix IV 0 mcg/kg/hr TITR STEPHEN 0 mls/hr Titration Protocol 1 MCG/KG/HR Dextrose 1,000 mls @ 75 mls/hr 03/21/21 10:00 D10w IV DIRECT STEPHEN Ceftriaxone Sodium 1 gm in 50 mls @ 100 mls/hr 03/21/21 13:00 03/21/21 17:51 Rocephin/Ns 1 Gm/50 Ml IV Not Given Q24HR STEPHEN Protocol Lansoprazole 30 mg 03/18/21 10:00 03/21/21 10:49 Lansoprazole 30 Mg Solutab FEEDTUBE 30 mg QDAY STEPHEN Administration Metoclopramide HCl 10 mg 03/21/21 12:00 03/21/21 17:49 Metoclopramide 10 Mg/2 Ml Inj IV 10 mg Q6HR STEPHEN Administration Multi-Ingred Cream/Lotion/Oil/Oint 1 applic 03/12/21 20:02 Mineral Oil/Petrolatum, White Ophth Oint 3.5 Gm OU Q4HR PRN Dry Eye(s) Ondansetron HCl 4 mg 03/12/21 21:29 Ondansetron 4 Mg/2 Ml Inj IV Q8H PRN Nausea And Vomiting Senna/Docusate Sodium 1 tab 03/12/21 22:00 03/21/21 10:49 Sennosides/Docusate Sodium 8.6/50 Mg Tab FEEDTUBE 1 tab BID STEPHEN Administration Simple Syrup 15 ml 03/17/21 12:00 03/21/21 09:06 Simple Syrup 15 Ml FEEDTUBE 15 ml PRN PRN Administration Hypoglycemia Simple Syrup 30 ml 03/17/21 12:00 Simple Syrup 15 Ml FEEDTUBE PRN PRN Hypoglycemia Sodium Bicarbonate 325 mg 03/17/21 12:00 Sodium Bicarbonate 325 Mg Tab FEEDTUBE PRN PRN For Clogged Feeding Tube Sodium Chloride 10 ml 03/12/21 22:00 03/21/21 10:00 Sodium Chloride 0.9% 10 Ml Flush Syringe IV 10 ml BID STEPHEN Administration Sodium Chloride 10 ml 03/12/21 21:29 Sodium Chloride 0.9% 10 Ml Flush Syringe IV PRN PRN LINE FLUSH Thiamine HCl 100 mg 03/13/21 10:00 03/21/21 10:48 Thiamine 100 Mg Tab PO 100 mg QDAY STEPHEN Administration
--- NOTE | 2021-03-21 21:22 | XRay Report ---
CHEST 1 VIEW 03/21/2021 9:05 PM INDICATION / CLINICAL INFORMATION: hypoxemia. COMPARISON: 03/19/2021 FINDINGS: SUPPORT DEVICES: Endotracheal tube is not seen which may be secondary to extubation. Redemonstrated e nteric tube, pH probe and right PICC, unchanged. HEART / MEDIASTINUM: Stable. LUNGS / PLEURA: Redemonstrated not significantly changed bilateral airspace opacities. No pneumothora x. ADDITIONAL FINDINGS: No significant additional findings. IMPRESSION: 1. Endotracheal is not well seen and may be secondary to extubation. 2. Redemonstrated not significant changed bilateral airspace opacities. Signer Name: Domingo Mulligan DO Signed: 03/21/2021 9:17 PM Workstation Name: [id number]
[2021-03-22] MEDS: METOCLOPRAMIDE 10 MG/2 ML INJ IV SCH ×4 (00:45→18:38)
[2021-03-22 05:44] LABS: Mean Corpuscular HGB Conc 29 % (32-34); Mean Corpuscular Volume 86 fl (84-94); Red Blood Count 3.97 M/mm3 (3.65-5.03)
[2021-03-22 05:46] LABS: Hemoglobin 9.8 gm/dl (11.8-15.2); Platelet Count 26 K/mm3 (140-440); Red Cell Distribution Width 29.6 % (13.2-15.2)
[2021-03-22 06:05] LABS: Alanine Aminotransferase 132 units/L (7-56); Albumin 1.8 g/dL (3.9-5); BUN/Creatinine Ratio 61; Blood Urea Nitrogen 73 mg/dL (9-20); Calcium 9.2 mg/dL (8.4-10.2); Hemolysis Index 28
[2021-03-22 06:43] LABS: ABG Base Excess -5.2 mmol/L (-2.0-3.0); ABG HCO3 19.4 mmol/L (20.0-26.0); ABG Methemoglobin 0.6 % (0.0-1.5); ABG Oxygen Saturation 91.9 % (95.0-99.0); ABG PCO2 34.2 mm Hg; ABG PH 7.372 pH Units (7.350-7.450); ABG PO2 69.7 mm Hg (80.0-90.0)
[2021-03-22] MEDS: MULTIVITAMIN / MINERAL ORAL LIQUID 15 ML PO SCH (10:23)
[2021-03-22] MEDS: FOLIC ACID 1 MG TAB PO SCH (10:23)
[2021-03-22] MEDS: SENNOSIDES/DOCUSATE SODIUM 8.6/50 MG TAB FEEDTUBE SCH ×2 (10:23→21:21)
[2021-03-22] MEDS: FERROUS SULFATE 300 MG (60MG Elemental Iron) / 5 mL ORAL LIQD PO SCH ×2 (10:23→22:17)
[2021-03-22] MEDS: dexAMETHasone 4 MG/ML VIAL IV SCH (10:23)
[2021-03-22] MEDS: THIAMINE 100 MG TAB PO SCH (10:23)
[2021-03-22] MEDS: LANSOPRAZOLE 30 MG SOLUTAB FEEDTUBE SCH (10:23)
[2021-03-22] MEDS: cefTRIAXone/NS 1 GM/50 ML 1 GM/50 ML BAG IV SCH (10:24)
[2021-03-22] MEDS ORDERED: SODIUM POLYSTYRENE 15 GM/60 ML ORAL LIQD PO SCH (11:45)
[2021-03-22] MEDS ORDERED: SODIUM BICARB 8.4% 50 MEQ/50 ML SYRINGE IV SCH (11:45)
[2021-03-22] MEDS: fentaNYL 100 MCG/2 ML INJ IV PRN ×2 (11:47→22:12)
[2021-03-22] MEDS ORDERED: DEXTROSE 10% IN WATER 1,000 ML IV SCH (12:00)
--- NOTE | 2021-03-22 12:21 | Progress Note ---
Assessment and Plan 65 y/o male with acute respiratory failure most likely secondary to COVID plus right sided effusion secondary to large volume ascities from liver cirrhosis. 03/22/21: Follow up cultures. Ascities is negative. Tracheal aspirate with bugs but await speciation. CXR did not shows worsening effusion. If abdomen begin to effect lung mechanics could consider large volume para to assist for comfort measures. Asked CM to speak with daughter to come and visit patient as we need to make decisions about assisted care. I feel that his liver disease is worsening and now it is starting to effect his kidney's. Very very poor prognosis overall. 03/21/21: Given fever, will repeat cultures and tap belly to send for culture. Urine analysis as well. Hold on giving platelets for now. Need to have family discussion in regards to goals of care. Patient is a high risk for decompensation. May need to consider large volume paracentesis. Oxygen requirement increased, will order CXR. Very guarded to poor prognosis. 03/20/21: Tolerated reglan and helped so now ordered on MAY. PSV again today but off all sedation. Need to discuss with family the need for trach and peg given mental state. Very very poor prognosis. 03/19/21: spoke with nursing and having high residuals. Will give a one time dose of reglan this morning. If persists, check KUB. Tolerating PSV this am. mental status is unfortunately unchanged. If strong cough, could consider extubation. Got platelets yesterday with improvement. No overt evidence of ble eding. 03/18/21: Dropped tidal volume to 380 this am. Will ask nursing to discontinue fent and place patient on PSV after about an hour or so of being off sedation. 03/17/21: Will drop tidal volume down to 400. repeat ABG in am. If patient seizes, please obtain stat ABG. Could be secondary to alkalemia. Mental state not improving post improvement of acidemia is a poor prognostic sign in my opinion. Neurology on board and head CT was negative. Neurology wants to try lactulose so ordered today. Will do for 24-36 hours to see if this helps with mental state but doubt it will. Very very guarded to poor prognosis. Plan to have family meeting next week (friday) 03/16/21: Acidemia is improved with HD. Likely will hold today. Stopped bicarb drip and patient is now off pressors. Given drop in hemoglobin need to correct coagulopathy. FFP, vitamin K. GI already following. Hopefully patient does not have esophargeal or gastric varices. No overt evidence of bleeding. q6hour H/ H's. Monitor platelets but hold on transfusion for now. Neurology concerned about ammonia level. Have no problem with empiric lactulose but will not trend ammonia levels. Very very guarded prognosis. 03/15/21: Vascath placed in right groin. ORder theron in the event it is needed during HD. Increase bicarb drip to 200. Hold all sedatives. No acute evidence of bleeding currently. Continue to trend LFT's and COags. Very very guarded prognosis. If not able to tolerate HD to fix acidemia, prognosis becomes gravely poor. 03/14/21: Started patient on bicarb drip and gave a few amps of sodium bicarb. Added vasopressin therapy. Continue Steroids and Remdesivir. Off sedation. Guarded prognosis. 1. Wean Vent settings and sedation as tolerated 2. Remdesivir and Steroids, Pending CRP, actemra 3. Hold on proning now that intubated, not able to paralyze and adequately sedate in the ED 4. Negative fluid balance if possible 5. Needs paracentesis, this should take care of pleural effusion as well. 6. Guarded prognosis. CCT 31 minutes. Subjective Date of service: 03/22/21 Principal diagnosis: Liver, anemia Interval history: No acute events. OXygen requirement now up to 65%. Clinically not improving. Mental state is unchanged. Worsening renal function now with decreased output. Objective Vital Signs - 12hr 03/22/21 03/22/21 03/22/21 00:30 00:45 01:00 Temperature Pulse Rate 107 H 109 H 108 H Pulse Rate [ From Monitor] Respiratory 20 19 21 Rate Blood Pressure 86/63 98/63 96/62 O2 Sat by Pulse 97 91 94 Oximetry 03/22/21 03/22/21 03/22/21 01:15 01:30 01:45 Temperature Pulse Rate 108 H 105 H 108 H Pulse Rate [ From Monitor] Respiratory 24 20 22 Rate Blood Pressure 94/63 97/64 94/63 O2 Sat by Pulse 91 94 94 Oximetry 03/22/21 03/22/21 03/22/21 02:00 02:15 02:30 Temperature Pulse Rate 108 H 108 H 106 H Pulse Rate [ From Monitor] Respiratory 22 25 H 26 H Rate Blood Pressure 100/65 98/64 99/66 O2 Sat by Pulse 92 91 96 Oximetry 03/22/21 03/22/21 03/22/21 02:45 03:00 03:15 Temperature Pulse Rate 106 H 108 H 106 H Pulse Rate [ From Monitor] Respiratory 22 27 H 22 Rate Blood Pressure 101/67 100/68 98/65 O2 Sat by Pulse 97 96 96 Oximetry 03/22/21 03/22/21 03/22/21 03:30 03:34 03:45 Temperature 97.2 F L Pulse Rate 105 H 107 H Pulse Rate [ From Monitor] Respiratory 24 27 H Rate Blood Pressure 100/68 103/69 O2 Sat by Pulse 94 96 Oximetry 03/22/21 03/22/21 03/22/21 04:00 04:15 04:30 Temperature Pulse Rate 106 H 105 H 106 H Pulse Rate [ 110 H From Monitor] Respiratory 27 H 22 28 H Rate Blood Pressure 109/79 106/67 109/71 O2 Sat by Pulse 96 96 96 Oximetry 03/22/21 03/22/21 03/22/21 04:45 05:00 05:15 Temperature Pulse Rate 106 H 105 H 106 H Pulse Rate [ From Monitor] Respiratory 26 H 27 H 26 H Rate Blood Pressure 98/70 108/69 104/70 O2 Sat by Pulse 96 97 96 Oximetry 03/22/21 03/22/21 03/22/21 05:30 05:45 06:00 Temperature Pulse Rate 105 H 105 H 105 H Pulse Rate [ From Monitor] Respiratory 27 H 27 H 25 H Rate Blood Pressure 109/70 99/70 99/68 O2 Sat by Pulse 98 97 97 Oximetry 03/22/21 03/22/21 03/22/21 06:15 06:30 06:45 Temperature Pulse Rate 104 H 107 H 107 H Pulse Rate [ From Monitor] Respiratory 26 H 30 H 31 H Rate Blood Pressure 96/71 103/69 104/69 O2 Sat by Pulse 97 95 95 Oximetry 03/22/21 03/22/21 03/22/21 07:00 07:15 07:30 Temperature Pulse Rate 106 H 105 H 105 H Pulse Rate [ From Monitor] Respiratory 29 H 28 H 25 H Rate Blood Pressure 93/68 105/70 97/67 O2 Sat by Pulse 96 99 98 Oximetry 03/22/21 03/22/21 03/22/21 07:45 07:49 08:00 Temperature 97.0 F L Pulse Rate 105 H 106 H 105 H Pulse Rate [ 106 H From Monitor] Respiratory 27 H 28 H Rate Blood Pressure 98/70 98/70 100/64 O2 Sat by Pulse 99 98 94 Oximetry 03/22/21 03/22/21 03/22/21 08:15 08:30 08:45 Temperature Pulse Rate 106 H 107 H 105 H Pulse Rate [ From Monitor] Respiratory 26 H 31 H 28 H Rate Blood Pressure 100/69 111/67 95/68 O2 Sat by Pulse 97 97 97 Oximetry 03/22/21 03/22/21 03/22/21 09:00 09:15 09:30 Temperature Pulse Rate 105 H 105 H 106 H Pulse Rate [ From Monitor] Respiratory 24 27 H 24 Rate Blood Pressure 94/68 96/68 98/68 O2 Sat by Pulse 97 98 97 Oximetry 03/22/21 03/22/21 03/22/21 09:45 10:00 10:15 Temperature Pulse Rate 105 H 105 H 104 H Pulse Rate [ From Monitor] Respiratory 24 25 H 24 Rate Blood Pressure 97/69 98/65 97/62 O2 Sat by Pulse 98 97 96 Oximetry 03/22/21 03/22/21 03/22/21 10:30 10:45 11:00 Temperature Pulse Rate 108 H 105 H 105 H Pulse Rate [ From Monitor] Respiratory 24 24 26 H Rate Blood Pressure 102/68 93/67 102/67 O2 Sat by Pulse 98 97 96 Oximetry 03/22/21 03/22/21 03/22/21 11:15 11:17 11:30 Temperature Pulse Rate 106 H 105 H 102 H Pulse Rate [ From Monitor] Respiratory 27 H 23 Rate Blood Pressure 89/65 89/65 95/59 O2 Sat by Pulse 96 99 96 Oximetry 03/22/21 03/22/21 11:45 12:00 Temperature Pulse Rate 105 H 102 H Pulse Rate [ From Monitor] Respiratory 25 H 22 Rate Blood Pressure 96/64 97/63 O2 Sat by Pulse 97 98 Oximetry Gastrointestinal: normoactive bowel sounds Integumentary: normal CBC and BMP: 03/22/21 04:00 03/22/21 04:00 ABG, PT/INR, D-dimer: ABG ABG pH 7.372 pH Units (7.350-7.450) 03/22/21 06:05 POC ABG pCO2 38.3 mmHg (32.0-48.0) 03/18/21 04:14 ABG pCO2 34.2 mm Hg 03/22/21 06:05 POC ABG pO2 73.1 mmHg (83-108) L 03/18/21 04:14 ABG pO2 69.7 mm Hg (80.0-90.0) L 03/22/21 06:05 POC ABG HCO3 31.6 03/18/21 04:14 ABG O2 Saturation 91.9 % (95.0-99.0) L 03/22/21 06:05 PT/INR, D-dimer PT 23.6 Sec. (12.2-14.9) H 03/19/21 04:00 INR 1.91 (0.87-1.13) H 03/19/21 04:00 D-Dimer > 51560 ng/mlDDU (0-234) H 03/21/21 Unknown Abnormal lab findings: Abnormal Labs 03/12/21 03/12/21 03/12/21 18:17 18:54 18:54 WBC 15.4 H RBC Hgb 9.0 L Hct 33.2 L MCV 77 L MCH 21 L MCHC 27 L RDW 28.1 H Plt Count Seg Neuts % (Manual) 86.0 H Lymphocytes % (Manual) 4.0 L Monocytes % (Manual) 8.0 H Nucleated RBC % Seg Neutrophils # Man 13.2 H Lymphocytes # (Manual) 0.6 L Monocytes # (Manual) 1.2 H PT INR APTT D-Dimer ABG pH POC ABG pCO2 POC ABG pO2 ABG pO2 ABG HCO3 ABG O2 Saturation ABG Base Excess ABG Hemoglobin ABG Oxyhemoglobin ABG Sodium ABG Potassium ABG Glucose Oxyhemoglobin Sodium 136 L Potassium 5.4 H Chloride Carbon Dioxide 16 L BUN 32 H Creatinine Glucose 104 H POC Glucose 58 L Calcium Magnesium Ferritin Total Bilirubin 1.40 H AST 71 H ALT Alkaline Phosphatase 164 H Ammonia Lactate Dehydrogenase C-Reactive Protein NT-Pro-B Natriuret Pep Total Protein Albumin 2.2 L Arterial Blood Glucose Arterial Blood Ionized Calcium Urine WBC (Auto) Coronavirus (PCR) Hepatitis C Antibody Crossmatch 03/12/21 03/12/21 03/12/21 18:54 18:54 18:54 WBC RBC Hgb Hct MCV MCH MCHC RDW Plt Count Seg Neuts % (Manual) Lymphocytes % (Manual) Monocytes % (Manual) Nucleated RBC % Seg Neutrophils # Man Lymphocytes # (Manual) Monocytes # (Manual) PT 17.6 H INR 1.31 H APTT 38.7 H D-Dimer > 07481 H ABG pH POC ABG pCO2 POC ABG pO2 ABG pO2 ABG HCO3 ABG O2 Saturation ABG Base Excess ABG Hemoglobin ABG Oxyhemoglobin ABG Sodium ABG Potassium ABG Glucose Oxyhemoglobin Sodium Potassium Chloride Carbon Dioxide BUN Creatinine Glucose POC Glucose Calcium Magnesium Ferritin Total Bilirubin AST ALT Alkaline Phosphatase Ammonia 72.0 H Lactate Dehydrogenase C-Reactive Protein NT-Pro-B Natriuret Pep 1838 H Total Protein Albumin Arterial Blood Glucose Arterial Blood Ionized Calcium Urine WBC (Auto) Coronavirus (PCR) Hepatitis C Antibody Crossmatch 03/12/21 03/12/21 03/12/21 18:54 19:04 19:21 WBC RBC Hgb Hct MCV MCH MCHC RDW Plt Count Seg Neuts % (Manual) Lymphocytes % (Manual) Monocytes % (Manual) Nucleated RBC % Seg Neutrophils # Man Lymphocytes # (Manual) Monocytes # (Manual) PT INR APTT D-Dimer ABG pH POC ABG pCO2 POC ABG pO2 ABG pO2 ABG HCO3 ABG O2 Saturation ABG Base Excess ABG Hemoglobin ABG Oxyhemoglobin ABG Sodium ABG Potassium ABG Glucose Oxyhemoglobin Sodium Potassium Chloride Carbon Dioxide BUN Creatinine Glucose POC Glucose 30 L Calcium Magnesium Ferritin 414.7 H Total Bilirubin AST ALT Alkaline Phosphatase Ammonia Lactate Dehydrogenase 287 H C-Reactive Protein 10.80 H NT-Pro-B Natriuret Pep Total Protein Albumin Arterial Blood Glucose Arterial Blood Ionized Calcium Urine WBC (Auto) Coronavirus (PCR) Hepatitis C Antibody Crossmatch 03/12/21 03/12/21 03/13/21 19:50 20:14 00:05 WBC RBC Hgb Hct MCV MCH MCHC RDW Plt Count Seg Neuts % (Manual) Lymphocytes % (Manual) Monocytes % (Manual) Nucleated RBC % Seg Neutrophils # Man Lymphocytes # (Manual) Monocytes # (Manual) PT INR APTT D-Dimer ABG pH POC ABG pCO2 POC ABG pO2 314.9 H ABG pO2 ABG HCO3 ABG O2 Saturation ABG Base Excess ABG Hemoglobin ABG Oxyhemoglobin 98.9 H ABG Sodium ABG Potassium ABG Glucose 229 H Oxyhemoglobin Sodium Potassium Chloride Carbon Dioxide BUN Creatinine Glucose POC Glucose 24 L 371 H Calcium Magnesium Ferritin Total Bilirubin AST ALT Alkaline Phosphatase Ammonia Lactate Dehydrogenase C-Reactive Protein NT-Pro-B Natriuret Pep Total Protein Albumin Arterial Blood Glucose 229 H Arterial Blood Ionized Calcium Urine WBC (Auto) Coronavirus (PCR) Hepatitis C Antibody Crossmatch 03/13/21 03/13/21 03/13/21 02:29 14:32 14:32 WBC 17.3 H RBC Hgb 8.8 L Hct 31.0 L MCV 75 L MCH 22 L MCHC 29 L RDW 27.5 H Plt Count Seg Neuts % (Manual) 91.0 H Lymphocytes % (Manual) 0 L Monocytes % (Manual) Nucleated RBC % 2.0 H Seg Neutrophils # Man 15.7 H Lymphocytes # (Manual) 0.0 L Monocytes # (Manual) 0.9 H PT INR APTT D-Dimer ABG pH POC ABG pCO2 POC ABG pO2 ABG pO2 ABG HCO3 ABG O2 Saturation ABG Base Excess ABG Hemoglobin ABG Oxyhemoglobin ABG Sodium ABG Potassium ABG Glucose Oxyhemoglobin Sodium Potassium Chloride Carbon Dioxide 16 L BUN 35 H Creatinine 1.5 H Glucose 58 L POC Glucose 128 H Calcium 7.8 L Magnesium Ferritin Total Bilirubin 1.40 H AST 82 H ALT Alkaline Phosphatase 163 H Ammonia Lactate Dehydrogenase C-Reactive Protein NT-Pro-B Natriuret Pep Total Protein 6.2 L Albumin 1.7 L Arterial Blood Glucose Arterial Blood Ionized Calcium Urine WBC (Auto) Coronavirus (PCR) Hepatitis C Antibody Crossmatch 03/13/21 03/14/21 03/14/21 Unknown 05:00 05:34 WBC 16.9 H RBC Hgb 7.9 L Hct 29.4 L MCV 80 L MCH 22 L MCHC 27 L RDW 28.6 H Plt Count Seg Neuts % (Manual) 72.0 H Lymphocytes % (Manual) 5.0 L Monocytes % (Manual) Nucleated RBC % 7.0 H Seg Neutrophils # Man 12.2 H Lymphocytes # (Manual) 0.8 L Monocytes # (Manual) PT INR APTT D-Dimer ABG pH 7.167 L POC ABG pCO2 24.6 L POC ABG pO2 ABG pO2 ABG HCO3 ABG O2 Saturation ABG Base Excess ABG Hemoglobin 9.3 L ABG Oxyhemoglobin ABG Sodium 135.2 L ABG Potassium 5.5 H ABG Glucose Oxyhemoglobin Sodium Potassium Chloride Carbon Dioxide BUN Creatinine Glucose POC Glucose Calcium Magnesium Ferritin Total Bilirubin AST ALT Alkaline Phosphatase Ammonia Lactate Dehydrogenase C-Reactive Protein NT-Pro-B Natriuret Pep Total Protein Albumin Arterial Blood Glucose Arterial Blood Ionized Calcium 4.3 L Urine WBC (Auto) Coronavirus (PCR) Positive A Hepatitis C Antibody Crossmatch 03/14/21 03/14/21 03/14/21 05:34 05:34 05:34 WBC RBC Hgb Hct MCV MCH MCHC RDW Plt Count Seg Neuts % (Manual) Lymphocytes % (Manual) Monocytes % (Manual) Nucleated RBC % Seg Neutrophils # Man Lymphocytes # (Manual) Monocytes # (Manual) PT INR APTT D-Dimer > 73254 H ABG pH POC ABG pCO2 POC ABG pO2 ABG pO2 ABG HCO3 ABG O2 Saturation ABG Base Excess ABG Hemoglobin ABG Oxyhemoglobin ABG Sodium ABG Potassium ABG Glucose Oxyhemoglobin Sodium Potassium 5.7 H D Chloride Carbon Dioxide BUN 37 H Creatinine Glucose POC Glucose Calcium 7.9 L Magnesium Ferritin 6545.0 H Total Bilirubin 1.80 H AST 4019 H ALT 501 H Alkaline Phosphatase Ammonia Lactate Dehydrogenase 2367 H C-Reactive Protein 8.40 H NT-Pro-B Natriuret Pep Total Protein 5.8 L Albumin 1.8 L Arterial Blood Glucose Arterial Blood Ionized Calcium Urine WBC (Auto) Coronavirus (PCR) Hepatitis C Antibody Crossmatch 03/14/21 03/14/21 03/14/21 05:34 07:16 07:18 WBC RBC Hgb Hct MCV MCH MCHC RDW Plt Count Seg Neuts % (Manual) Lymphocytes % (Manual) Monocytes % (Manual) Nucleated RBC % Seg Neutrophils # Man Lymphocytes # (Manual) Monocytes # (Manual) PT INR APTT D-Dimer ABG pH POC ABG pCO2 POC ABG pO2 ABG pO2 ABG HCO3 ABG O2 Saturation ABG Base Excess ABG Hemoglobin ABG Oxyhemoglobin ABG Sodium ABG Potassium ABG Glucose Oxyhemoglobin Sodium Potassium 5.4 H Chloride Carbon Dioxide 12 L BUN 38 H Creatinine 2.5 H D Glucose 29 L* POC Glucose 17 L Calcium 7.6 L Magnesium Ferritin Total Bilirubin AST ALT Alkaline Phosphatase Ammonia Lactate Dehydrogenase 2218 H C-Reactive Protein 8.30 H NT-Pro-B Natriuret Pep Total Protein Albumin Arterial Blood Glucose Arterial Blood Ionized Calcium Urine WBC (Auto) Coronavirus (PCR) Hepatitis C Antibody Reactive A Crossmatch 03/14/21 03/14/21 03/14/21 08:08 08:59 10:06 WBC RBC Hgb Hct MCV MCH MCHC RDW Plt Count Seg Neuts % (Manual) Lymphocytes % (Manual) Monocytes % (Manual) Nucleated RBC % Seg Neutrophils # Man Lymphocytes # (Manual) Monocytes # (Manual) PT 40.7 H INR 3.85 H APTT D-Dimer ABG pH POC ABG pCO2 POC ABG pO2 ABG pO2 ABG HCO3 ABG O2 Saturation ABG Base Excess ABG Hemoglobin ABG Oxyhemoglobin ABG Sodium ABG Potassium ABG Glucose Oxyhemoglobin Sodium Potassium Chloride Carbon Dioxide BUN Creatinine Glucose POC Glucose 11 L 144 H Calcium Magnesium Ferritin Total Bilirubin AST ALT Alkaline Phosphatase Ammonia Lactate Dehydrogenase C-Reactive Protein NT-Pro-B Natriuret Pep Total Protein Albumin Arterial Blood Glucose Arterial Blood Ionized Calcium Urine WBC (Auto) Coronavirus (PCR) Hepatitis C Antibody Crossmatch 03/14/21 03/15/21 03/15/21 18:15 03:42 04:17 WBC RBC Hgb Hct MCV MCH MCHC RDW Plt Count Seg Neuts % (Manual) Lymphocytes % (Manual) Monocytes % (Manual) Nucleated RBC % Seg Neutrophils # Man Lymphocytes # (Manual) Monocytes # (Manual) PT INR APTT D-Dimer ABG pH 7.088 L* POC ABG pCO2 POC ABG pO2 ABG pO2 90.7 H ABG HCO3 6.2 L ABG O2 Saturation 92.8 L ABG Base Excess -21.8 L ABG Hemoglobin 8.9 L ABG Oxyhemoglobin ABG Sodium ABG Potassium ABG Glucose Oxyhemoglobin 90.8 L Sodium Potassium 6.5 H* D Chloride Carbon Dioxide 5 L* D BUN 37 H Creatinine 2.1 H Glucose POC Glucose 124 H Calcium 7.4 L Magnesium Ferritin Total Bilirubin 2.40 H AST 3911 H ALT 663 H Alkaline Phosphatase 139 H Ammonia Lactate Dehydrogenase C-Reactive Protein NT-Pro-B Natriuret Pep Total Protein 5.8 L Albumin 1.8 L Arterial Blood Glucose Arterial Blood Ionized Calcium Urine WBC (Auto) Coronavirus (PCR) Hepatitis C Antibody Crossmatch 03/15/21 03/15/21 03/15/21 11:17 11:41 13:13 WBC RBC Hgb Hct MCV MCH MCHC RDW Plt Count Seg Neuts % (Manual) Lymphocytes % (Manual) Monocytes % (Manual) Nucleated RBC % Seg Neutrophils # Man Lymphocytes # (Manual) Monocytes # (Manual) PT INR APTT D-Dimer ABG pH POC ABG pCO2 POC ABG pO2 ABG pO2 ABG HCO3 ABG O2 Saturation ABG Base Excess ABG Hemoglobin ABG Oxyhemoglobin ABG Sodium ABG Potassium ABG Glucose Oxyhemoglobin Sodium 153 H D Potassium Chloride Carbon Dioxide 14 L D BUN 31 H Creatinine 1.8 H Glucose 262 H POC Glucose 17 L 35 L Calcium 5.8 L* D Magnesium Ferritin Total Bilirubin AST ALT Alkaline Phosphatase Ammonia Lactate Dehydrogenase C-Reactive Protein NT-Pro-B Natriuret Pep Total Protein Albumin Arterial Blood Glucose Arterial Blood Ionized Calcium Urine WBC (Auto) Coronavirus (PCR) Hepatitis C Antibody Crossmatch 03/15/21 03/15/21 03/16/21 13:53 23:52 06:30 WBC RBC Hgb Hct MCV MCH MCHC RDW Plt Count Seg Neuts % (Manual) Lymphocytes % (Manual) Monocytes % (Manual) Nucleated RBC % Seg Neutrophils # Man Lymphocytes # (Manual) Monocytes # (Manual) PT INR APTT D-Dimer ABG pH POC ABG pCO2 POC ABG pO2 ABG pO2 ABG HCO3 ABG O2 Saturation ABG Base Excess ABG Hemoglobin ABG Oxyhemoglobin ABG Sodium ABG Potassium ABG Glucose Oxyhemoglobin Sodium 146 H Potassium 3.1 L D Chloride Carbon Dioxide BUN 27 H Creatinine 1.8 H Glucose 140 H POC Glucose 40 L 142 H Calcium 7.3 L D Magnesium Ferritin Total Bilirubin 3.10 H AST 2233 H ALT 409 H Alkaline Phosphatase 156 H Ammonia Lactate Dehydrogenase C-Reactive Protein NT-Pro-B Natriuret Pep Total Protein 5.2 L Albumin 2.5 L Arterial Blood Glucose Arterial Blood Ionized Calcium Urine WBC (Auto) Coronavirus (PCR) Hepatitis C Antibody Crossmatch 03/16/21 03/16/21 03/16/21 06:30 06:30 06:30 WBC 15.5 H RBC 2.54 L Hgb 5.5 L* Hct 19.1 L* D MCV 75 L MCH 21 L MCHC 29 L RDW 26.7 H Plt Count 36 L Seg Neuts % (Manual) Lymphocytes % (Manual) Monocytes % (Manual) Nucleated RBC % Seg Neutrophils # Man Lymphocytes # (Manual) Monocytes # (Manual) PT 58.3 H INR 6.13 H* APTT D-Dimer ABG pH POC ABG pCO2 POC ABG pO2 ABG pO2 ABG HCO3 ABG O2 Saturation ABG Base Excess ABG Hemoglobin ABG Oxyhemoglobin ABG Sodium ABG Potassium ABG Glucose Oxyhemoglobin Sodium Potassium Chloride Carbon Dioxide BUN Creatinine Glucose POC Glucose Calcium Magnesium 1.60 L Ferritin Total Bilirubin AST ALT Alkaline Phosphatase Ammonia Lactate Dehydrogenase C-Reactive Protein NT-Pro-B Natriuret Pep Total Protein Albumin Arterial Blood Glucose Arterial Blood Ionized Calcium Urine WBC (Auto) Coronavirus (PCR) Hepatitis C Antibody Crossmatch 03/16/21 03/16/21 03/16/21 08:00 12:10 13:19 WBC RBC Hgb Hct MCV MCH MCHC RDW Plt Count Seg Neuts % (Manual) Lymphocytes % (Manual) Monocytes % (Manual) Nucleated RBC % Seg Neutrophils # Man Lymphocytes # (Manual) Monocytes # (Manual) PT INR APTT D-Dimer ABG pH POC ABG pCO2 POC ABG pO2 ABG pO2 ABG HCO3 ABG O2 Saturation ABG Base Excess ABG Hemoglobin ABG Oxyhemoglobin ABG Sodium ABG Potassium ABG Glucose Oxyhemoglobin Sodium Potassium Chloride Carbon Dioxide BUN Creatinine Glucose POC Glucose 59 L 110 H Calcium Magnesium Ferritin Total Bilirubin AST ALT Alkaline Phosphatase Ammonia Lactate Dehydrogenase C-Reactive Protein NT-Pro-B Natriuret Pep Total Protein Albumin Arterial Blood Glucose Arterial Blood Ionized Calcium Urine WBC (Auto) Coronavirus (PCR) Hepatitis C Antibody Crossmatch See Detail 03/16/21 03/16/21 03/16/21 22:15 22:15 22:15 WBC 16.3 H RBC Hgb 9.7 L D Hct 31.9 L D MCV 79 L MCH 24 L MCHC 30 L RDW 26.0 H Plt Count 27 L Seg Neuts % (Manual) Lymphocytes % (Manual) Monocytes % (Manual) Nucleated RBC % Seg Neutrophils # Man Lymphocytes # (Manual) Monocytes # (Manual) PT 30.3 H INR 2.63 H APTT D-Dimer ABG pH POC ABG pCO2 POC ABG pO2 ABG pO2 ABG HCO3 ABG O2 Saturation ABG Base Excess ABG Hemoglobin ABG Oxyhemoglobin ABG Sodium ABG Potassium ABG Glucose Oxyhemoglobin Sodium Potassium 3.3 L Chloride Carbon Dioxide BUN Creatinine Glucose POC Glucose Calcium Magnesium 2.50 H Ferritin Total Bilirubin AST ALT Alkaline Phosphatase Ammonia Lactate Dehydrogenase C-Reactive Protein NT-Pro-B Natriuret Pep Total Protein Albumin Arterial Blood Glucose Arterial Blood Ionized Calcium Urine WBC (Auto) Coronavirus (PCR) Hepatitis C Antibody Crossmatch 03/17/21 03/17/21 03/17/21 00:21 00:46 02:34 WBC RBC Hgb Hct MCV MCH MCHC RDW Plt Count Seg Neuts % (Manual) Lymphocytes % (Manual) Monocytes % (Manual) Nucleated RBC % Seg Neutrophils # Man Lymphocytes # (Manual) Monocytes # (Manual) PT INR APTT D-Dimer ABG pH 7.614 H POC ABG pCO2 23.4 L POC ABG pO2 70.5 L ABG pO2 ABG HCO3 ABG O2 Saturation ABG Base Excess ABG Hemoglobin 9.9 L ABG Oxyhemoglobin 93.7 L ABG Sodium ABG Potassium 3.0 L ABG Glucose Oxyhemoglobin Sodium Potassium Chloride Carbon Dioxide BUN Creatinine Glucose POC Glucose 53 L 55 L Calcium Magnesium Ferritin Total Bilirubin AST ALT Alkaline Phosphatase Ammonia Lactate Dehydrogenase C-Reactive Protein NT-Pro-B Natriuret Pep Total Protein Albumin Arterial Blood Glucose Arterial Blood Ionized Calcium 4.0 L Urine WBC (Auto) Coronavirus (PCR) Hepatitis C Antibody Crossmatch 03/17/21 03/17/21 03/17/21 04:19 04:19 04:19 WBC 15.0 H RBC Hgb 9.3 L Hct 30.3 L MCV 78 L MCH 24 L MCHC 31 L RDW 26.2 H Plt Count 20 L Seg Neuts % (Manual) Lymphocytes % (Manual) Monocytes % (Manual) Nucleated RBC % Seg Neutrophils # Man Lymphocytes # (Manual) Monocytes # (Manual) PT 29.8 H INR 2.58 H APTT D-Dimer ABG pH POC ABG pCO2 POC ABG pO2 ABG pO2 ABG HCO3 ABG O2 Saturation ABG Base Excess ABG Hemoglobin ABG Oxyhemoglobin ABG Sodium ABG Potassium ABG Glucose Oxyhemoglobin Sodium 147 H Potassium 3.0 L Chloride Carbon Dioxide BUN 33 H Creatinine 1.6 H Glucose POC Glucose Calcium 8.0 L Magnesium Ferritin Total Bilirubin 4.30 H AST 1427 H ALT 340 H Alkaline Phosphatase Ammonia Lactate Dehydrogenase C-Reactive Protein NT-Pro-B Natriuret Pep Total Protein 5.4 L Albumin 2.3 L Arterial Blood Glucose Arterial Blood Ionized Calcium Urine WBC (Auto) Coronavirus (PCR) Hepatitis C Antibody Crossmatch 03/17/21 03/17/21 03/17/21 04:19 13:37 18:25 WBC RBC Hgb 9.7 L Hct 31.6 L MCV MCH MCHC RDW Plt Count Seg Neuts % (Manual) Lymphocytes % (Manual) Monocytes % (Manual) Nucleated RBC % Seg Neutrophils # Man Lymphocytes # (Manual) Monocytes # (Manual) PT INR APTT D-Dimer ABG pH POC ABG pCO2 POC ABG pO2 ABG pO2 ABG HCO3 ABG O2 Saturation ABG Base Excess ABG Hemoglobin ABG Oxyhemoglobin ABG Sodium ABG Potassium ABG Glucose Oxyhemoglobin Sodium Potassium Chloride Carbon Dioxide BUN Creatinine Glucose POC Glucose 148 H Calcium Magnesium 2.40 H Ferritin Total Bilirubin AST ALT Alkaline Phosphatase Ammonia Lactate Dehydrogenase C-Reactive Protein NT-Pro-B Natriuret Pep Total Protein Albumin Arterial Blood Glucose Arterial Blood Ionized Calcium Urine WBC (Auto) Coronavirus (PCR) Hepatitis C Antibody Crossmatch 03/17/21 03/18/21 03/18/21 23:46 04:14 05:09 WBC RBC Hgb Hct MCV MCH MCHC RDW Plt Count Seg Neuts % (Manual) Lymphocytes % (Manual) Monocytes % (Manual) Nucleated RBC % Seg Neutrophils # Man Lymphocytes # (Manual) Monocytes # (Manual) PT INR APTT D-Dimer ABG pH 7.534 H POC ABG pCO2 POC ABG pO2 73.1 L ABG pO2 ABG HCO3 ABG O2 Saturation ABG Base Excess ABG Hemoglobin 10.1 L ABG Oxyhemoglobin 93.6 L ABG Sodium ABG Potassium 3.3 L ABG Glucose 193 H Oxyhemoglobin Sodium Potassium Chloride Carbon Dioxide BUN Creatinine Glucose POC Glucose 169 H 167 H Calcium Magnesium Ferritin Total Bilirubin AST ALT Alkaline Phosphatase Ammonia Lactate Dehydrogenase C-Reactive Protein NT-Pro-B Natriuret Pep Total Protein Albumin Arterial Blood Glucose 193 H Arterial Blood Ionized Calcium 4.4 L Urine WBC (Auto) Coronavirus (PCR) Hepatitis C Antibody Crossmatch 03/18/21 03/18/21 03/18/21 06:20 06:20 11:49 WBC 13.5 H RBC Hgb 9.3 L Hct 30.7 L MCV 79 L MCH 24 L MCHC 30 L RDW 27.0 H Plt Count 13 L* Seg Neuts % (Manual) Lymphocytes % (Manual) Monocytes % (Manual) Nucleated RBC % Seg Neutrophils # Man Lymphocytes # (Manual) Monocytes # (Manual) PT INR APTT D-Dimer ABG pH POC ABG pCO2 POC ABG pO2 ABG pO2 ABG HCO3 ABG O2 Saturation ABG Base Excess ABG Hemoglobin ABG Oxyhemoglobin ABG Sodium ABG Potassium ABG Glucose Oxyhemoglobin Sodium 147 H Potassium 3.3 L Chloride Carbon Dioxide BUN 42 H Creatinine Glucose 192 H POC Glucose 191 H Calcium 8.1 L Magnesium Ferritin Total Bilirubin 5.50 H AST 619 H ALT 248 H Alkaline Phosphatase Ammonia Lactate Dehydrogenase C-Reactive Protein NT-Pro-B Natriuret Pep Total Protein 5.2 L Albumin 2.0 L Arterial Blood Glucose Arterial Blood Ionized Calcium Urine WBC (Auto) Coronavirus (PCR) Hepatitis C Antibody Crossmatch 03/18/21 03/18/21 03/19/21 17:03 23:49 04:00 WBC RBC Hgb Hct MCV MCH MCHC RDW Plt Count Seg Neuts % (Manual) Lymphocytes % (Manual) Monocytes % (Manual) Nucleated RBC % Seg Neutrophils # Man Lymphocytes # (Manual) Monocytes # (Manual) PT INR APTT D-Dimer ABG pH POC ABG pCO2 POC ABG pO2 ABG pO2 ABG HCO3 ABG O2 Saturation ABG Base Excess ABG Hemoglobin ABG Oxyhemoglobin ABG Sodium ABG Potassium ABG Glucose Oxyhemoglobin Sodium 146 H Potassium Chloride 107.4 H Carbon Dioxide 31 H BUN 42 H Creatinine 0.6 L Glucose 230 H POC Glucose 214 H 192 H Calcium 8.3 L Magnesium 2.50 H Ferritin Total Bilirubin 7.40 H AST 354 H ALT 221 H Alkaline Phosphatase 154 H Ammonia Lactate Dehydrogenase C-Reactive Protein NT-Pro-B Natriuret Pep Total Protein 5.8 L Albumin 2.1 L Arterial Blood Glucose Arterial Blood Ionized Calcium Urine WBC (Auto) Coronavirus (PCR) Hepatitis C Antibody Crossmatch 03/19/21 03/19/21 03/19/21 04:00 04:00 04:00 WBC 16.0 H RBC Hgb 9.9 L Hct 32.8 L MCV 80 L MCH 24 L MCHC 30 L RDW 27.6 H Plt Count 24 L Seg Neuts % (Manual) Lymphocytes % (Manual) Monocytes % (Manual) Nucleated RBC % Seg Neutrophils # Man Lymphocytes # (Manual) Monocytes # (Manual) PT 23.6 H INR 1.91 H APTT D-Dimer > 68962 H ABG pH POC ABG pCO2 POC ABG pO2 ABG pO2 ABG HCO3 ABG O2 Saturation ABG Base Excess ABG Hemoglobin ABG Oxyhemoglobin ABG Sodium ABG Potassium ABG Glucose Oxyhemoglobin Sodium Potassium Chloride Carbon Dioxide BUN Creatinine Glucose POC Glucose Calcium Magnesium Ferritin 730.0 H Total Bilirubin AST ALT Alkaline Phosphatase Ammonia Lactate Dehydrogenase C-Reactive Protein NT-Pro-B Natriuret Pep Total Protein Albumin Arterial Blood Glucose Arterial Blood Ionized Calcium Urine WBC (Auto) Coronavirus (PCR) Hepatitis C Antibody Crossmatch 03/19/21 03/19/21 03/19/21 04:00 05:43 11:28 WBC RBC Hgb Hct MCV MCH MCHC RDW Plt Count Seg Neuts % (Manual) Lymphocytes % (Manual) Monocytes % (Manual) Nucleated RBC % Seg Neutrophils # Man Lymphocytes # (Manual) Monocytes # (Manual) PT INR APTT D-Dimer ABG pH POC ABG pCO2 POC ABG pO2 ABG pO2 ABG HCO3 ABG O2 Saturation ABG Base Excess ABG Hemoglobin ABG Oxyhemoglobin ABG Sodium ABG Potassium ABG Glucose Oxyhemoglobin Sodium Potassium Chloride Carbon Dioxide BUN Creatinine Glucose POC Glucose 220 H 198 H Calcium Magnesium Ferritin Total Bilirubin AST ALT Alkaline Phosphatase Ammonia Lactate Dehydrogenase 915 H C-Reactive Protein 4.30 H NT-Pro-B Natriuret Pep Total Protein Albumin Arterial Blood Glucose Arterial Blood Ionized Calcium Urine WBC (Auto) Coronavirus (PCR) Hepatitis C Antibody Crossmatch 03/19/21 03/19/21 03/20/21 15:56 23:28 05:18 WBC RBC Hgb Hct MCV MCH MCHC RDW Plt Count Seg Neuts % (Manual) Lymphocytes % (Manual) Monocytes % (Manual) Nucleated RBC % Seg Neutrophils # Man Lymphocytes # (Manual) Monocytes # (Manual) PT INR APTT D-Dimer ABG pH POC ABG pCO2 POC ABG pO2 ABG pO2 57.3 L ABG HCO3 31.3 H ABG O2 Saturation 88.8 L ABG Base Excess 6.5 H ABG Hemoglobin 10.8 L ABG Oxyhemoglobin ABG Sodium ABG Potassium ABG Glucose Oxyhemoglobin 86.8 L Sodium Potassium Chloride Carbon Dioxide BUN Creatinine Glucose POC Glucose 225 H 187 H Calcium Magnesium Ferritin Total Bilirubin AST ALT Alkaline Phosphatase Ammonia Lactate Dehydrogenase C-Reactive Protein NT-Pro-B Natriuret Pep Total Protein Albumin Arterial Blood Glucose Arterial Blood Ionized Calcium Urine WBC (Auto) Coronavirus (PCR) Hepatitis C Antibody Crossmatch 03/20/21 03/20/21 03/20/21 05:19 05:45 05:45 WBC 14.7 H RBC Hgb 10.4 L Hct 34.3 L MCV 81 L MCH 25 L MCHC 30 L RDW 28.1 H Plt Count 14 L* Seg Neuts % (Manual) Lymphocytes % (Manual) Monocytes % (Manual) Nucleated RBC % Seg Neutrophils # Man Lymphocytes # (Manual) Monocytes # (Manual) PT INR APTT D-Dimer ABG pH POC ABG pCO2 POC ABG pO2 ABG pO2 ABG HCO3 ABG O2 Saturation ABG Base Excess ABG Hemoglobin ABG Oxyhemoglobin ABG Sodium ABG Potassium ABG Glucose Oxyhemoglobin Sodium 147 H Potassium Chloride 107.5 H Carbon Dioxide BUN 40 H Creatinine 0.4 L Glucose 191 H POC Glucose 163 H Calcium Magnesium Ferritin Total Bilirubin 9.30 H AST 193 H ALT 186 H Alkaline Phosphatase 137 H Ammonia Lactate Dehydrogenase C-Reactive Protein NT-Pro-B Natriuret Pep Total Protein 5.8 L Albumin 2.1 L Arterial Blood Glucose Arterial Blood Ionized Calcium Urine WBC (Auto) Coronavirus (PCR) Hepatitis C Antibody Crossmatch 03/20/21 03/20/21 03/21/21 11:50 17:57 01:10 WBC RBC Hgb Hct MCV MCH MCHC RDW Plt Count Seg Neuts % (Manual) Lymphocytes % (Manual) Monocytes % (Manual) Nucleated RBC % Seg Neutrophils # Man Lymphocytes # (Manual) Monocytes # (Manual) PT INR APTT D-Dimer ABG pH POC ABG pCO2 POC ABG pO2 ABG pO2 ABG HCO3 ABG O2 Saturation ABG Base Excess ABG Hemoglobin ABG Oxyhemoglobin ABG Sodium ABG Potassium ABG Glucose Oxyhemoglobin Sodium Potassium Chloride Carbon Dioxide BUN Creatinine Glucose POC Glucose 175 H 142 H 47 L Calcium Magnesium Ferritin Total Bilirubin AST ALT Alkaline Phosphatase Ammonia Lactate Dehydrogenase C-Reactive Protein NT-Pro-B Natriuret Pep Total Protein Albumin Arterial Blood Glucose Arterial Blood Ionized Calcium Urine WBC (Auto) Coronavirus (PCR) Hepatitis C Antibody Crossmatch 03/21/21 03/21/21 03/21/21 01:11 02:45 08:56 WBC RBC Hgb Hct MCV MCH MCHC RDW Plt Count Seg Neuts % (Manual) Lymphocytes % (Manual) Monocytes % (Manual) Nucleated RBC % Seg Neutrophils # Man Lymphocytes # (Manual) Monocytes # (Manual) PT INR APTT D-Dimer ABG pH POC ABG pCO2 POC ABG pO2 ABG pO2 ABG HCO3 ABG O2 Saturation ABG Base Excess ABG Hemoglobin ABG Oxyhemoglobin ABG Sodium ABG Potassium ABG Glucose Oxyhemoglobin Sodium Potassium Chloride Carbon Dioxide BUN Creatinine Glucose POC Glucose 54 L 118 H 25 L Calcium Magnesium Ferritin Total Bilirubin AST ALT Alkaline Phosphatase Ammonia Lactate Dehydrogenase C-Reactive Protein NT-Pro-B Natriuret Pep Total Protein Albumin Arterial Blood Glucose Arterial Blood Ionized Calcium Urine WBC (Auto) Coronavirus (PCR) Hepatitis C Antibody Crossmatch 03/21/21 03/21/21 03/21/21 08:59 09:21 09:35 WBC RBC Hgb Hct MCV MCH MCHC RDW Plt Count Seg Neuts % (Manual) Lymphocytes % (Manual) Monocytes % (Manual) Nucleated RBC % Seg Neutrophils # Man Lymphocytes # (Manual) Monocytes # (Manual) PT INR APTT D-Dimer ABG pH POC ABG pCO2 POC ABG pO2 ABG pO2 ABG HCO3 ABG O2 Saturation ABG Base Excess ABG Hemoglobin ABG Oxyhemoglobin ABG Sodium ABG Potassium ABG Glucose Oxyhemoglobin Sodium Potassium Chloride Carbon Dioxide BUN Creatinine Glucose POC Glucose 24 L 14 L 48 L Calcium Magnesium Ferritin Total Bilirubin AST ALT Alkaline Phosphatase Ammonia Lactate Dehydrogenase C-Reactive Protein NT-Pro-B Natriuret Pep Total Protein Albumin Arterial Blood Glucose Arterial Blood Ionized Calcium Urine WBC (Auto) Coronavirus (PCR) Hepatitis C Antibody Crossmatch 03/21/21 03/21/21 03/21/21 10:20 12:20 14:13 WBC RBC Hgb Hct MCV MCH MCHC RDW Plt Count Seg Neuts % (Manual) Lymphocytes % (Manual) Monocytes % (Manual) Nucleated RBC % Seg Neutrophils # Man Lymphocytes # (Manual) Monocytes # (Manual) PT INR APTT D-Dimer ABG pH POC ABG pCO2 POC ABG pO2 ABG pO2 ABG HCO3 ABG O2 Saturation ABG Base Excess ABG Hemoglobin ABG Oxyhemoglobin ABG Sodium ABG Potassium ABG Glucose Oxyhemoglobin Sodium Potassium Chloride Carbon Dioxide BUN Creatinine Glucose POC Glucose 68 L 133 H Calcium Magnesium Ferritin Total Bilirubin AST ALT Alkaline Phosphatase Ammonia Lactate Dehydrogenase C-Reactive Protein NT-Pro-B Natriuret Pep Total Protein Albumin Arterial Blood Glucose Arterial Blood Ionized Calcium Urine WBC (Auto) 24.0 H Coronavirus (PCR) Hepatitis C Antibody Crossmatch 03/21/21 03/21/21 03/21/21 15:25 16:59 18:08 WBC RBC Hgb Hct MCV MCH MCHC RDW Plt Count Seg Neuts % (Manual) Lymphocytes % (Manual) Monocytes % (Manual) Nucleated RBC % Seg Neutrophils # Man Lymphocytes # (Manual) Monocytes # (Manual) PT INR APTT D-Dimer ABG pH POC ABG pCO2 POC ABG pO2 ABG pO2 ABG HCO3 ABG O2 Saturation ABG Base Excess ABG Hemoglobin ABG Oxyhemoglobin ABG Sodium ABG Potassium ABG Glucose Oxyhemoglobin Sodium Potassium Chloride Carbon Dioxide BUN Creatinine Glucose POC Glucose 146 H 159 H 156 H Calcium Magnesium Ferritin Total Bilirubin AST ALT Alkaline Phosphatase Ammonia Lactate Dehydrogenase C-Reactive Protein NT-Pro-B Natriuret Pep Total Protein Albumin Arterial Blood Glucose Arterial Blood Ionized Calcium Urine WBC (Auto) Coronavirus (PCR) Hepatitis C Antibody Crossmatch 03/21/21 03/21/21 03/21/21 Unknown Unknown Unknown WBC RBC Hgb Hct MCV MCH MCHC RDW Plt Count Seg Neuts % (Manual) Lymphocytes % (Manual) Monocytes % (Manual) Nucleated RBC % Seg Neutrophils # Man Lymphocytes # (Manual) Monocytes # (Manual) PT INR APTT D-Dimer > 79986 H ABG pH POC ABG pCO2 POC ABG pO2 ABG pO2 ABG HCO3 ABG O2 Saturation ABG Base Excess ABG Hemoglobin ABG Oxyhemoglobin ABG Sodium ABG Potassium ABG Glucose Oxyhemoglobin Sodium 146 H Potassium Chloride Carbon Dioxide 21 L D BUN 51 H Creatinine 0.6 L Glucose 67 L POC Glucose Calcium Magnesium Ferritin 443.8 H Total Bilirubin 13.10 H AST 163 H ALT 149 H Alkaline Phosphatase Ammonia Lactate Dehydrogenase C-Reactive Protein NT-Pro-B Natriuret Pep Total Protein 5.6 L Albumin 1.9 L Arterial Blood Glucose Arterial Blood Ionized Calcium Urine WBC (Auto) Coronavirus (PCR) Hepatitis C Antibody Crossmatch 03/21/21 03/21/21 03/22/21 Unknown Unknown 00:23 WBC 16.4 H RBC Hgb 10.4 L Hct MCV MCH 25 L MCHC 29 L RDW 28.4 H Plt Count 13 L* Seg Neuts % (Manual) Lymphocytes % (Manual) Monocytes % (Manual) Nucleated RBC % Seg Neutrophils # Man Lymphocytes # (Manual) Monocytes # (Manual) PT INR APTT D-Dimer ABG pH POC ABG pCO2 POC ABG pO2 ABG pO2 ABG HCO3 ABG O2 Saturation ABG Base Excess ABG Hemoglobin ABG Oxyhemoglobin ABG Sodium ABG Potassium ABG Glucose Oxyhemoglobin Sodium Potassium Chloride Carbon Dioxide BUN Creatinine Glucose POC Glucose 113 H Calcium Magnesium Ferritin Total Bilirubin AST ALT Alkaline Phosphatase Ammonia Lactate Dehydrogenase 693 H C-Reactive Protein 5.00 H NT-Pro-B Natriuret Pep Total Protein Albumin Arterial Blood Glucose Arterial Blood Ionized Calcium Urine WBC (Auto) Coronavirus (PCR) Hepatitis C Antibody Crossmatch 03/22/21 03/22/21 03/22/21 04:00 04:00 06:05 WBC 18.8 H RBC Hgb 9.8 L Hct 34.0 L MCV MCH 25 L MCHC 29 L RDW 29.6 H Plt Count 26 L D Seg Neuts % (Manual) Lymphocytes % (Manual) Monocytes % (Manual) Nucleated RBC % Seg Neutrophils # Man Lymphocytes # (Manual) Monocytes # (Manual) PT INR APTT D-Dimer ABG pH POC ABG pCO2 POC ABG pO2 ABG pO2 69.7 L ABG HCO3 19.4 L ABG O2 Saturation 91.9 L ABG Base Excess -5.2 L ABG Hemoglobin 10.2 L ABG Oxyhemoglobin ABG Sodium ABG Potassium ABG Glucose Oxyhemoglobin 89.9 L Sodium Potassium 5.1 H Chloride Carbon Dioxide 18 L BUN 73 H Creatinine Glucose 154 H POC Glucose Calcium Magnesium Ferritin Total Bilirubin 14.00 H AST 146 H ALT 132 H Alkaline Phosphatase Ammonia Lactate Dehydrogenase C-Reactive Protein NT-Pro-B Natriuret Pep Total Protein 5.2 L Albumin 1.8 L Arterial Blood Glucose Arterial Blood Ionized Calcium Urine WBC (Auto) Coronavirus (PCR) Hepatitis C Antibody Crossmatch 03/22/21 10:28 WBC RBC Hgb Hct MCV MCH MCHC RDW Plt Count Seg Neuts % (Manual) Lymphocytes % (Manual) Monocytes % (Manual) Nucleated RBC % Seg Neutrophils # Man Lymphocytes # (Manual) Monocytes # (Manual) PT INR APTT D-Dimer ABG pH POC ABG pCO2 POC ABG pO2 ABG pO2 ABG HCO3 ABG O2 Saturation ABG Base Excess ABG Hemoglobin ABG Oxyhemoglobin ABG Sodium ABG Potassium ABG Glucose Oxyhemoglobin Sodium Potassium Chloride Carbon Dioxide BUN Creatinine Glucose POC Glucose 113 H Calcium Magnesium Ferritin Total Bilirubin AST ALT Alkaline Phosphatase Ammonia Lactate Dehydrogenase C-Reactive Protein NT-Pro-B Natriuret Pep Total Protein Albumin Arterial Blood Glucose Arterial Blood Ionized Calcium Urine WBC (Auto) Coronavirus (PCR) Hepatitis C Antibody Crossmatch
--- NOTE | 2021-03-22 12:45 | Progress Note ---
Assessment and Plan Cultures: SARS CoV2 PCR: Positive 03/12/2021 blood culture: no growth 03/12/2021 tracheal aspirate culture: usual resp isaak 03/21/2021 blood culture: in process 03/21/2021 paracentesis: WBC 15, RBC 221, culture in process 03/21/2021 sputum culture: In process A/P: 65-year-old male with hepatic cirrhosis, chronic hepatitis C, anemia, ascites, recent hospitalization due to worsening ascites, underwent paracentesis with removal of 13 L of fluid, now with: #Septic shock: from COVID, also ?SBP which was ruled out although after several days of abx, hence treated empirically with ceftriaxone. Initial labs showed significant leukocytosis of 15.4, D-dimer greater than 10K, procalcitonin 8.67, CRP 10.8, LDH 287, ferritin 414, ammonia 72. Ferritin next day worsened to 6545, AST increased to 4019, ALT 501. Required multiple pressors. Remdesivir held. Not a candidate for Actemra. #Bilateral pneumonia: secondary to COVID-19. On steroids. Remdesivir could not completed due to worsening renal and hepatic function. #Acute thrombocytopenia: severe. #Right pleural effusion, ascites #Acute hypoxic respiratory failure: on the vent #Acute renal failure, acidosis: nephrology on board. #Hepatic cirrhosis with ascites, chronic hepatitis C: genotype 1a. Prior treatment status unknown. #Acute hepatic failure Recs: -follow-up new blood cultures -continue IV ceftriaxone 1 g daily -complete steroid course for COVID-19: IV/PO Dexamethasone x 10 days -extremely poor prognosis, consider comfort care Jhony Nickerson MD, FACP, [facility] ([facility]) O: [phone] F: [phone] Subjective Date of service: 03/22/21 Principal diagnosis: Liver, anemia Interval history: No fever. Remains on the vent. Remains off pressors. Objective - Exam Narrative Exam: Physical Exam: Constitutional: sedated, intubated, on the vent Head, Ears, Nose: Normocephalic, atraumatic. External ears, nose normal Eyes: Conjunctivae/corneas clear. No icterus. No ptosis. Neck: intubated Oral: intubated Cardiovascular: S1, S2 + Respiratory: AE fair GI: Soft, bowel sounds +, distended Musculoskeletal: Ischemic digits Skin: No rash or abscess Hem/Lymphatic: No palpable cervical or supraclavicular nodes. No lymphangitis Psych: no agitation Neurological: sedated, intubated, on the vent, exam limited - Constitutional Vitals: Vital Signs Temp Pulse Resp BP Pulse Ox 97.1 F L 102 H 22 97/63 98 03/22/21 12:00 03/22/21 12:00 03/22/21 12:00 03/22/21 12:00 03/22/21 12:00 Temperature -Last 24 Hours Temperature 97.1 F Temperature 97.0 F Temperature 97.2 F Temperature 97.9 F Temperature 98.1 F Temperature 98.6 F Temperature 98.5 F Temperature 99.9 F - Labs CBC & Chem 7: 03/22/21 04:00 03/22/21 04:00 Labs: Abnormal lab results 03/21/21 03/21/21 03/21/21 Range/Units 10:20 14:13 15:25 WBC (4.5-11.0) K/mm3 Hgb (11.8-15.2) gm/dl Hct (35.5-45.6) % MCH (28-32) pg MCHC (32-34) % RDW (13.2-15.2) % Plt Count (140-440) K/mm3 ABG pO2 (80.0-90.0) mm Hg ABG HCO3 (20.0-26.0) mmol/L ABG O2 Saturation (95.0-99.0) % ABG Base Excess (-2.0-3.0) mmol/L ABG Hemoglobin (14.0-18.0) gm/dl Oxyhemoglobin (95.0-99.0) % Potassium (3.6-5.0) mmol/L Carbon Dioxide (22-30) mmol/L BUN (9-20) mg/dL Glucose (75-100) mg/dL POC Glucose 133 H 146 H (70-105) mg/dL Total Bilirubin (0.1-1.2) mg/dL AST (5-40) units/L ALT (7-56) units/L Total Protein (6.3-8.2) g/dL Albumin (3.9-5) g/dL Urine WBC (Auto) 24.0 H (0.0-6.0) /HPF 03/21/21 03/21/21 03/22/21 Range/Units 16:59 18:08 00:23 WBC (4.5-11.0) K/mm3 Hgb (11.8-15.2) gm/dl Hct (35.5-45.6) % MCH (28-32) pg MCHC (32-34) % RDW (13.2-15.2) % Plt Count (140-440) K/mm3 ABG pO2 (80.0-90.0) mm Hg ABG HCO3 (20.0-26.0) mmol/L ABG O2 Saturation (95.0-99.0) % ABG Base Excess (-2.0-3.0) mmol/L ABG Hemoglobin (14.0-18.0) gm/dl Oxyhemoglobin (95.0-99.0) % Potassium (3.6-5.0) mmol/L Carbon Dioxide (22-30) mmol/L BUN (9-20) mg/dL Glucose (75-100) mg/dL POC Glucose 159 H 156 H 113 H (70-105) mg/dL Total Bilirubin (0.1-1.2) mg/dL AST (5-40) units/L ALT (7-56) units/L Total Protein (6.3-8.2) g/dL Albumin (3.9-5) g/dL Urine WBC (Auto) (0.0-6.0) /HPF 03/22/21 03/22/21 03/22/21 Range/Units 04:00 04:00 06:05 WBC 18.8 H (4.5-11.0) K/mm3 Hgb 9.8 L (11.8-15.2) gm/dl Hct 34.0 L (35.5-45.6) % MCH 25 L (28-32) pg MCHC 29 L (32-34) % RDW 29.6 H (13.2-15.2) % Plt Count 26 L D (140-440) K/mm3 ABG pO2 69.7 L (80.0-90.0) mm Hg ABG HCO3 19.4 L (20.0-26.0) mmol/L ABG O2 Saturation 91.9 L (95.0-99.0) % ABG Base Excess -5.2 L (-2.0-3.0) mmol/L ABG Hemoglobin 10.2 L (14.0-18.0) gm/dl Oxyhemoglobin 89.9 L (95.0-99.0) % Potassium 5.1 H (3.6-5.0) mmol/L Carbon Dioxide 18 L (22-30) mmol/L BUN 73 H (9-20) mg/dL Glucose 154 H (75-100) mg/dL POC Glucose (70-105) mg/dL Total Bilirubin 14.00 H (0.1-1.2) mg/dL AST 146 H (5-40) units/L ALT 132 H (7-56) units/L Total Protein 5.2 L (6.3-8.2) g/dL Albumin 1.8 L (3.9-5) g/dL Urine WBC (Auto) (0.0-6.0) /HPF 03/22/21 Range/Units 10:28 WBC (4.5-11.0) K/mm3 Hgb (11.8-15.2) gm/dl Hct (35.5-45.6) % MCH (28-32) pg MCHC (32-34) % RDW (13.2-15.2) % Plt Count (140-440) K/mm3 ABG pO2 (80.0-90.0) mm Hg ABG HCO3 (20.0-26.0) mmol/L ABG O2 Saturation (95.0-99.0) % ABG Base Excess (-2.0-3.0) mmol/L ABG Hemoglobin (14.0-18.0) gm/dl Oxyhemoglobin (95.0-99.0) % Potassium (3.6-5.0) mmol/L Carbon Dioxide (22-30) mmol/L BUN (9-20) mg/dL Glucose (75-100) mg/dL POC Glucose 113 H (70-105) mg/dL Total Bilirubin (0.1-1.2) mg/dL AST (5-40) units/L ALT (7-56) units/L Total Protein (6.3-8.2) g/dL Albumin (3.9-5) g/dL Urine WBC (Auto) (0.0-6.0) /HPF
--- NOTE | 2021-03-22 16:00 | Progress Note ---
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 Hospital Course to Date: 03/13: Awaiting PCCM, GI, ID input. Ordered CTA chest to rule out PE. Fluids increased due to concern for intravascular depletion. 03/14: Worsening hepatic transaminits, hypoglycemia noted. D/w GI and CCM regarding worsening liver function, likely shock liver. Will attempt [facility] transfer for hepatology services, call placed. Worsening renal function, consult placed to nephrology. 03/15: This morning decision was made by nephrology to initiate hemodialysis. Femoral Vas-Cath placed. Patient remains on Levophed and vasopressin and bicarbonate drip. Despite bicarbonate drip patient was acidotic on ABG and given additional 2 A of bicarb. Added phenyl epi gtt for HD if needed. I updated the daughter today while obtaining consent. 03/16: Patient had CT head today per neurology, supratherapeutic INR of six and given vitamin K and FFP follow, thrombocytopenia noted, patient is off of vasopressors. Metabolic acidosis resolved therefore bicarb drip discontinued. Hemoglobin 5.5 given 2 units PRBC. Potassium and mag repleted. NG tube to low intermittent suction. FiO2 decreased. serial h/h 03/17: Patient remains off vasopressors, fentanyl drip started on low-dose, vent changes per CCM and potassium repleted aggressively. GI okay to start tube feeding. LFTs improving. 03/18: Decrease in tidal volume today per CCM, holding sedation as patient is not responding. PSV today. LFTS better, k and mag repleted, TF at goal. SSI to high dose scale. Severe thrombocytopenia and given platelets today. Updated his daughter today regarding status, PSV trial and plts. She inquired about CTH which showed no acute finding but showed chronic changes which were communicated. 03/19: RONALD overnight. On low dose sedation this am, patient open eyes spontaneously not following any commands. High gastric residual, abdomen still distended, IV reglan added. TF held per protocol. Mild improvement in thrombocytopenia, d/w CCM transfuse if plt less than 20. 03/20: Remains on the vent and on low dose fentanly. Plan for SAT /SBT today. Per CCM if patient mentation remains the same he will most like need a trach/PEG. Pl an for possible famil meeting to discuss POC. Plt droped again this am, will continue to monitor for no s/s of any active bleeding, patient is stable. 03/21: Febrile, hypotensive with tachycardia this am, back on pressors. IVF bolus and will panculture patient. Also diagnostic paracentesis performed at the bedside to r/t SBP as a possible source, culture sent. ID is also following, IV abx per ID. Necrotic right 5th digit noted, RUE doppler with right radial and ulnar stenosis, Vascular Surgery consulted. Patient is also severely hypoglycemic this, BG as low as 10 treated per hypoglycemic protocol. TF on hold due to high residual, D10w gtt initiated, Q1hr BG check for now. 03/22: Off pressors this am. TF was resumed overnight, will keep TF at 35cc/hr for now given abdominal distention. Kayexalate for hyperkalemia. D/w [facility] ppossible large volume paracentesis ascites is starting to affect respiratory status. Assessment and Plan #Acute Hepatic/Metabolic Encephalopathy - Remains unresponsive, not on any sedation - CT head with no abnormality - Ammonia improved, no improvement in mental status - Avoid benzodiazepine to reduce the possibility of delirium - PRN analgesia for CPOT greater than 3 - Maintenance of sleep-wake cycle #CV:Septic Shock #Tachycardia #Hypotension - ST and hypotensive this am - Off pressors this am - Maintain adequate perfusion - Continue rehydration with cont. IVF - Continue blood pressure monitor per protocol - Titrate pressors to maintain a MAP above 65 #Acute Hypoxic Respiratory Failure #COVID Pneumonia - Intubated 03/12 in the ED - Vent Setting:CMV-65%,6,14,380 - This am ABG noted, X1 dose of BCarb - CCM consulted, appreciate recommendations - VAP bundle addressed - Aspiration precaution HOB above 30 - Daily SBT and SAT trials as tolerated - Daily ABG and CXR - Continue SPO2 monitoring for SPO2 goal above 92% #GI:Transaminitis #Hyperammonemia-improved #Shock Liver #h/o ESLD 2/2EtOH cirrhosis and hep C with recurrent ascites - ELevated LFTs most likely related to ESLD - MELD NA: 22 - Abdominal ultrasound shows moderate to large volume ascites throughout all 4 quadrants of the abdomen - Ammonia improved, Lactulose on hold - GI consulted, appreciate recommendations - Conservative management per GI - Avoid hepatotoxins - Trend LFTs and ammonia level - TF resume, keep at current rate, 35ml/hr for now - Continue PPI - Transfer to [facility] for liver failure was denied #Acute kidney injury most likely ATN- improved #Hypokalemia - Presented with hyperkalemia and Scr. as high as high 2.5 - S/p HD on 03/15, renal function and hyperkalemia improved - Nephrology consulted,appreciate recommendation - Strict intake and output - Avoid nephrotoxic medications; Renally dose medications - Monitor and replace electrolytes as needed - Trend BMP, mag, & phos #ID: Septic Shock #COVID Pneumonia #Possible Spontaneous Bacterial Peritonitis(SBP) #Leukocytosis - COVID swab positive - Imagings with bilateral pulmonary opacities - Blood cultures and sputum culture were negative - Febrile this am, WBcs mostly unchanged - orders placed for UA, blood culture, and sputum culture - 03/21 s/p Diagnostic paracentesis at the bedside to r/o SBP - ID on consult - Continue IV Abx per ID - X1 dose of Remdesevir, held due to renal function. Patient not candidate for Actemra - Daily CBC monitor #Heme:Severe Thrombocytopenia #Microcytic Anemia #Supratherapeutic INR- resolved - Plt dropped as low as 13, s/p 1unit of Platelets on 03/18 - Plt remains low - Will continue to monitor for now - H&H remains stable, s/p 2units of PRBCs - CTA chest negative for pulmonary embolism - s/p vit K and 1 unit of FFP for high INR - Continue to trend INR - Transfuse hemoglobin less than 7 - Monitor for s/s of bleeding - AC on hold - SCD to bilateral lower extremities while in bed - Trend CBC #Endo:Severe Hypoglycemia - BG as low as 14 this am treated per protocol - BG check now Q1hr - Avoid Hypoglycemia - Hypoglycemic protocol The high probability of a clinically significant, sudden or life threatening deterioration of the [multi] system(s) required my full and direct attention, intervention and personal management. The aggregate critical care time was [60] minutes. This time is in addition to time spent performing reported procedures but includes the following: [x] Data Review and interpretation [x] Patient assessment and monitoring of vital signs [x] Documentation [x] Medication orders and management Disposition Plan: ICU Total Time Spent with Patient (Minutes): 60 History Interval history: Patient seen and examined at the bedside. Intubated and unresponsive. Open eyes spontaneously but does not follow commands. Off pressors this am, TF resumed overnight. Hospitalist Physical - Constitutional Vitals: Temp Pulse Resp BP Pulse Ox 97.2 F L 104 H 22 93/57 98 03/22/21 15:58 03/22/21 15:58 03/22/21 15:30 03/22/21 15:34 03/22/21 15:34 General appearance: Present: mild distress, cachectic, other (On the ventilator, unresponsive) - EENT Eyes: Present: PERRL - Respiratory Respiratory effort: labored, accessory muscle use Respiratory: bilateral: rhonchi - Cardiovascular Rhythm: regular Heart Sounds: Present: S1 & S2 - Extremities Extremities: abnormal Extremity abnormal: black Peripheral Pulses: within normal limits - Abdominal General gastrointestinal: distended, rigid, hypoactive bowel sounds - Integumentary Integumentary: Present: warm, dry - Psychiatric Psychiatric: other (On the ventilator, unresponsive) - Neurologic Neurologic: other (On the ventilator, unresponsive) - Allied Health Allied health notes reviewed: nursing HEART Score - HEART Score Troponin: Troponin T < 0.010 ng/mL (0.00-0.029) 03/12/21 18:54 Results - Labs CBC & Chem 7: 03/22/21 04:00 03/22/21 04:00 Labs: Laboratory Last Values WBC 18.8 K/mm3 (4.5-11.0) H 03/22/21 04:00 RBC 3.97 M/mm3 (3.65-5.03) 03/22/21 04:00 Hgb 9.8 gm/dl (11.8-15.2) L 03/22/21 04:00 Hct 34.0 % (35.5-45.6) L 03/22/21 04:00 MCV 86 fl (84-94) 03/22/21 04:00 MCH 25 pg (28-32) L 03/22/21 04:00 MCHC 29 % (32-34) L 03/22/21 04:00 RDW 29.6 % (13.2-15.2) H 03/22/21 04:00 Plt Count 26 K/mm3 (140-440) L D 03/22/21 04:00 Add Manual Diff Complete 03/14/21 05:34 Total Counted 100 03/14/21 05:34 Seg Neutrophils % Plush Cutter 03/14/21 05:34 Seg Neuts % (Manual) 72.0 % (40.0-70.0) H 03/14/21 05:34 Band Neutrophils % 16.0 % 03/14/21 05:34 Lymphocytes % (Manual) 5.0 % (13.4-35.0) L 03/14/21 05:34 Reactive Lymphs % (Man) 0 % 03/14/21 05:34 Monocytes % (Manual) 4.0 % (0.0-7.3) 03/14/21 05:34 Eosinophils % (Manual) 0 % (0.0-4.3) 03/14/21 05:34 Basophils % (Manual) 0 % (0.0-1.8) 03/14/21 05:34 Metamyelocytes % 1.0 % 03/14/21 05:34 Myelocytes % 2.0 % 03/14/21 05:34 Promyelocytes % 0 % 03/14/21 05:34 Blast Cells % 0 % 03/14/21 05:34 Nucleated RBC % 7.0 % (0.0-0.9) H 03/14/21 05:34 Seg Neutrophils # Man 12.2 K/mm3 (1.8-7.7) H 03/14/21 05:34 Band Neutrophils # 2.7 K/mm3 03/14/21 05:34 Lymphocytes # (Manual) 0.8 K/mm3 (1.2-5.4) L 03/14/21 05:34 Abs React Lymphs (Man) 0.0 K/mm3 03/14/21 05:34 Monocytes # (Manual) 0.7 K/mm3 (0.0-0.8) 03/14/21 05:34 Eosinophils # (Manual) 0.0 K/mm3 (0.0-0.4) 03/14/21 05:34 Basophils # (Manual) 0.0 K/mm3 (0.0-0.1) 03/14/21 05:34 Metamyelocytes # 0.2 K/mm3 03/14/21 05:34 Myelocytes # 0.3 K/mm3 03/14/21 05:34 Promyelocytes # 0.0 K/mm3 03/14/21 05:34 Blast Cells # 0.0 K/mm3 03/14/21 05:34 Pathologist Review 03/14/21 05:34 WBC Morphology Not Reportable 03/14/21 05:34 Hypersegmented Neuts Not Reportable 03/14/21 05:34 Hyposegmented Neuts Not Reportable 03/14/21 05:34 Hypogranular Neuts Not Reportable 03/14/21 05:34 Smudge Cells Not Reportable 03/14/21 05:34 Toxic Granulation 1+ 03/14/21 05:34 Toxic Vacuolation Not Reportable 03/14/21 05:34 Dohle Bodies Not Reportable 03/14/21 05:34 Pelger-Huet Anomaly Not Reportable 03/14/21 05:34 Saqib Rods Not Reportable 03/14/21 05:34 Platelet Estimate Consistent w auto 03/14/21 05:34 Clumped Platelets Plush Cutter 03/14/21 05:34 Plt Clumps, EDTA Not Reportable 03/14/21 05:34 Large Platelets Few 03/14/21 05:34 Giant Platelets Not Reportable 03/14/21 05:34 Platelet Satelliting Not Reportable 03/14/21 05:34 Plt Morphology Comment Not Reportable 03/14/21 05:34 RBC Morphology Not Reportable 03/14/21 05:34 Dimorphic RBCs Not Reportable 03/14/21 05:34 Polychromasia 1+ 03/14/21 05:34 Hypochromasia 2+ 03/14/21 05:34 Poikilocytosis Not Reportable 03/14/21 05:34 Anisocytosis 2+ 03/14/21 05:34 Microcytosis 1+ 03/14/21 05:34 Macrocytosis Not Reportable 03/14/21 05:34 Spherocytes Not Reportable 03/14/21 05:34 Pappenheimer Bodies Not Reportable 03/14/21 05:34 Sickle Cells Not Reportable 03/14/21 05:34 Target Cells 1+ 03/14/21 05:34 Tear Drop Cells Not Reportable 03/14/21 05:34 Ovalocytes Not Reportable 03/14/21 05:34 Helmet Cells Not Reportable 03/14/21 05:34 [place] Bodies Not Reportable 03/14/21 05:34 [place] Rings Not Reportable 03/14/21 05:34 [place] Cells 1+ 03/14/21 05:34 Bite Cells Not Reportable 03/14/21 05:34 Crenated Cell Not Reportable 03/14/21 05:34 Elliptocytes Not Reportable 03/14/21 05:34 Acanthocytes (Spur) Not Reportable 03/14/21 05:34 Rouleaux Not Reportable 03/14/21 05:34 Hemoglobin C Crystals Not Reportable 03/14/21 05:34 Schistocytes Not Reportable 03/14/21 05:34 Malaria parasites Not Reportable 03/14/21 05:34 Wolf Bodies Not Reportable 03/14/21 05:34 Hem Pathologist Commnt Sent to pathology 03/14/21 05:34 PT 23.6 Sec. (12.2-14.9) H 03/19/21 04:00 INR 1.91 (0.87-1.13) H 03/19/21 04:00 APTT 38.7 Sec. (24.2-36.6) H 03/12/21 18:54 D-Dimer > 38541 ng/mlDDU (0-234) H 03/21/21 Unknown ABG pH 7.372 pH Units (7.350-7.450) 03/22/21 06:05 POC ABG pCO2 38.3 mmHg (32.0-48.0) 03/18/21 04:14 ABG pCO2 34.2 mm Hg 03/22/21 06:05 POC ABG pO2 73.1 mmHg (83-108) L 03/18/21 04:14 ABG pO2 69.7 mm Hg (80.0-90.0) L 03/22/21 06:05 POC ABG HCO3 31.6 03/18/21 04:14 ABG HCO3 19.4 mmol/L (20.0-26.0) L 03/22/21 06:05 ABG O2 Saturation 91.9 % (95.0-99.0) L 03/22/21 06:05 ABG O2 Content 13.0 (0.0-44) 03/22/21 06:05 POC ABG Base Excess 8.4 03/18/21 04:14 ABG Base Excess -5.2 mmol/L (-2.0-3.0) L 03/22/21 06:05 ABG Hemoglobin 10.2 gm/dl (14.0-18.0) L 03/22/21 06:05 ABG Oxyhemoglobin 93.6 (94-98) L 03/18/21 04:14 ABG Carboxyhemoglobin 1.6 % (0.0-5.0) 03/22/21 06:05 ABG Methemoglobin 0.6 % (0.0-1.5) 03/22/21 06:05 ABG Sodium 140.2 mmol/L (136.0-145.0) 03/18/21 04:14 ABG Potassium 3.3 mmol/L (3.40-4.50) L 03/18/21 04:14 ABG Chloride 102.0 mmol/L (98-107) 03/18/21 04:14 ABG Glucose 193 mg/dL (65-95) H 03/18/21 04:14 Oxyhemoglobin 89.9 % (95.0-99.0) L 03/22/21 06:05 Carboxyhemoglobin 0.7 (0.5-1.5) 03/18/21 04:14 FiO2 65 % 03/22/21 06:05 FiO2 % 40.0 03/18/21 04:14 Sodium 145 mmol/L (137-145) 03/22/21 04:00 Potassium 5.1 mmol/L (3.6-5.0) H 03/22/21 04:00 Chloride 104.8 mmol/L (98-107) 03/22/21 04:00 Carbon Dioxide 18 mmol/L (22-30) L 03/22/21 04:00 Anion Gap 27 mmol/L 03/22/21 04:00 BUN 73 mg/dL (9-20) H 03/22/21 04:00 Creatinine 1.2 mg/dL (0.8-1.3) D 03/22/21 04:00 Estimated GFR > 60 ml/min 03/22/21 04:00 BUN/Creatinine Ratio 61 % 03/22/21 04:00 Glucose 154 mg/dL (75-100) H 03/22/21 04:00 POC Glucose 113 mg/dL (70-105) H 03/22/21 10:28 Calcium 9.2 mg/dL (8.4-10.2) 03/22/21 04:00 Phosphorus 3.50 mg/dL (2.5-4.5) 03/20/21 05:48 Magnesium 2.20 mg/dL (1.7-2.3) 03/20/21 05:48 Ferritin 443.8 ng/mL (30.0-300.0) H 03/21/21 Unknown Total Bilirubin 14.00 mg/dL (0.1-1.2) H 03/22/21 04:00 AST 146 units/L (5-40) H 03/22/21 04:00 ALT 132 units/L (7-56) H 03/22/21 04:00 Alkaline Phosphatase 108 units/L (35-129) 03/22/21 04:00 Ammonia 27.0 umol/L (25-60) 03/20/21 05:48 Lactate Dehydrogenase 693 units/L (91-180) H 03/21/21 Unknown Troponin T < 0.010 ng/mL (0.00-0.029) 03/12/21 18:54 C-Reactive Protein 5.00 mg/dL (0.00-1.30) H 03/21/21 Unknown NT-Pro-B Natriuret Pep 1838 pg/mL (0-900) H 03/12/21 18:54 Total Protein 5.2 g/dL (6.3-8.2) L 03/22/21 04:00 Albumin 1.8 g/dL (3.9-5) L 03/22/21 04:00 Albumin/Globulin Ratio 0.5 % 03/22/21 04:00 Procalcitonin 11.74 ng/mL (<0.15) 03/21/21 10:46 Arterial Blood Glucose 193 mg/dL (65-95) H 03/18/21 04:14 Arterial Blood Ionized Calcium 4.4 mg/dL (4.6-5.3) L 03/18/21 04:14 Urine Color Sabrina (Yellow) 03/21/21 10:20 Urine Turbidity Cloudy (Clear) 03/21/21 10:20 Urine pH 5.0 (5.0-7.0) 03/21/21 10:20 Ur Specific [place] 1.019 (1.003-1.030) 03/21/21 10:20 Urine Protein 30 mg/dl mg/dL (Negative) 03/21/21 10:20 Urine Glucose (UA) Neg mg/dL (Negative) 03/21/21 10:20 Urine Ketones Neg mg/dL (Negative) 03/21/21 10:20 Urine Blood Mod (Negative) 03/21/21 10:20 Urine Nitrite Neg (Negative) 03/21/21 10:20 Urine Bilirubin Sm (Negative) 03/21/21 10:20 Urine Ictotest Positive (Negative) 03/21/21 10:20 Urine Urobilinogen 2.0 mg/dL (<2.0) 03/21/21 10:20 Ur Leukocyte Esterase Neg (Negative) 03/21/21 10:20 Urine WBC (Auto) 24.0 /HPF (0.0-6.0) H 03/21/21 10:20 Urine RBC (Auto) 8.0 /HPF (0.0-6.0) 03/21/21 10:20 U Epithel Cells (Auto) 3.0 /HPF (0-13.0) 03/21/21 10:20 Hyaline Casts 1 /LPF 03/21/21 10:20 Granular Casts 9 /LPF 03/21/21 10:20 Urine Mucus Few /HPF 03/21/21 10:20 Fluid Type Paracentesis 03/21/21 13:30 Fluid Color Yellow 03/21/21 13:30 Fluid Appearance Hazy 03/21/21 13:30 Fluid WBC 15 /mm3 03/21/21 13:30 Fluid RBC 221 /mm3 03/21/21 13:30 Fluid Seg Neutrophils 50.0 % 03/21/21 13:30 Fluid Lymphocytes 35.0 % 03/21/21 13:30 Fluid Monocytes 15.0 % 03/21/21 13:30 Random Vancomycin 5.6 ug/mL (0-40.0) 03/16/21 06:30 Coronavirus (PCR) Positive (Negative) A 03/13/21 Unknown Hepatitis A IgM Ab Non-reactive (NonReactive) 03/14/21 05:34 Hep Bs Antigen Nonreactive (Negative) 03/14/21 05:34 Hep B Core IgM Ab Non-reactive (NonReactive) 03/14/21 05:34 Hepatitis C Antibody Reactive (NonReactive) A 03/14/21 05:34 Blood Type B POSITIVE 03/16/21 08:00 Antibody Screen Negative 03/16/21 08:00 Crossmatch See Detail 03/16/21 08:00 Microbiology: Microbiology 03/21/21 13:40 Tracheal Aspirate Sputum Culture - Preliminary 03/21/21 13:30 Ascities Fluid Body Fluid Culture - Preliminary 03/21/21 10:20 Urine,Clean Catch Urine Culture - Preliminary NO GROWTH AFTER 24 HOURS 03/21/21 10:46 Peripheral/Venous Blood Culture - Preliminary NO GROWTH AFTER 24 HOURS 03/21/21 10:46 Peripheral/Venous Blood Culture - Preliminary NO GROWTH AFTER 24 HOURS [place]/IV: Voiding Method Indwelling Catheter Active Medications - Current Medications Current Medications: Generic Name Dose Route Start Last Admin Trade Name Freq PRN Reason Stop Dose Admin Albuterol 2.5 mg 03/12/21 21:29 Albuterol 2.5 Mg/3 Ml Nebu IH Q4HRT PRN Shortness Of Breath Lipase/Protease/Amylase 1 each 03/17/21 12:00 Lipase 10,500/Protease 25,000/Amylase 43,750 (Units) Dr Marrero FEEDTUBE PRN PRN For Clogged Feeding Tube Dextrose 0 ml 03/15/21 10:00 03/21/21 09:36 Dextrose 50% In Water (25gm) 50 Ml Syringe IV 50 ml Q30MIN PRN Administration Hypoglycemia Protocol Fentanyl 50 mcg 03/13/21 16:03 03/22/21 11:47 Fentanyl 100 Mcg/2 Ml Inj IV 50 mcg Q10MIN PRN Administration ANALGESIA Ferrous Sulfate 300 mg 03/13/21 10:00 03/22/21 10:23 Ferrous Sulfate 300 Mg (60mg Elemental Iron) / 5 Ml Oral Liqd PO 300 mg BID STEPHEN Administration Folic Acid 1 mg 03/13/21 10:00 03/22/21 10:23 Folic Acid 1 Mg Tab PO 1 mg QDAY STEPHEN Administration Hydralazine HCl 5 mg 03/20/21 20:07 Hydralazine 20 Mg/1 Ml Inj IV Q30MIN PRN Hypertension Hydrophilic Ointment 1 applic 03/12/21 20:02 Lip Therapy Vaseline TP Q2HR PRN Dry Lips NORepinephrine/NS 8 MG-250 ML 8 mg in 250 mls @ 3.75 mls/hr 03/13/21 21:00 03/21/21 10:17 Norepinephrine/Ns 8 Mg-250 Ml (Double Conc) IV 0 mcg/min TITRATE STEPHEN 0 mls/hr Titration Protocol 2 MCG/MIN Sodium Chloride 100 mls @ 999 mls/hr 03/15/21 10:00 Nacl 0.9% IV VICKEY PRN Hypotension Propofol 1,000 mg in 100 mls @ 1.836 mls/hr 03/20/21 21:00 03/21/21 18:01 Diprivan 10 Mg/Ml IV 0 mcg/kg/min TITR STEPHEN 0 mls/hr Titration Protocol 5 MCG/KG/MIN Fentanyl Citrate 2,000 mcg in 100 mls @ 3.06 mls/hr 03/20/21 21:00 03/21/21 18:01 Fentanyl Drip Premix IV 0 mcg/kg/hr TITR STEPHEN 0 mls/hr Titration Protocol 1 MCG/KG/HR Ceftriaxone Sodium 1 gm in 50 mls @ 100 mls/hr 03/21/21 13:00 03/22/21 10:24 Rocephin/Ns 1 Gm/50 Ml IV 100 mls/hr Q24HR STEPHEN Administration Protocol Dextrose 1,000 mls @ 75 mls/hr 03/22/21 12:00 D10w IV DIRECT STEPHEN Lansoprazole 30 mg 03/18/21 10:00 03/22/21 10:23 Lansoprazole 30 Mg Solutab FEEDTUBE 30 mg QDAY STEPHEN Administration Metoclopramide HCl 10 mg 03/21/21 12:00 03/22/21 13:39 Metoclopramide 10 Mg/2 Ml Inj IV 10 mg Q6HR STEPHEN Administration Multi-Ingred Cream/Lotion/Oil/Oint 1 applic 03/12/21 20:02 Mineral Oil/Petrolatum, White Ophth Oint 3.5 Gm OU Q4HR PRN Dry Eye(s) Ondansetron HCl 4 mg 03/12/21 21:29 Ondansetron 4 Mg/2 Ml Inj IV Q8H PRN Nausea And Vomiting Senna/Docusate Sodium 1 tab 03/12/21 22:00 03/22/21 10:23 Sennosides/Docusate Sodium 8.6/50 Mg Tab FEEDTUBE 1 tab BID STEPHEN Administration Simple Syrup 15 ml 03/17/21 12:00 03/21/21 09:06 Simple Syrup 15 Ml FEEDTUBE 15 ml PRN PRN Administration Hypoglycemia Simple Syrup 30 ml 03/17/21 12:00 Simple Syrup 15 Ml FEEDTUBE PRN PRN Hypoglycemia Sodium Bicarbonate 325 mg 03/17/21 12:00 Sodium Bicarbonate 325 Mg Tab FEEDTUBE PRN PRN For Clogged Feeding Tube Sodium Chloride 10 ml 03/12/21 22:00 03/22/21 10:25 Sodium Chloride 0.9% 10 Ml Flush Syringe IV 10 ml BID STEPHEN Administration Sodium Chloride 10 ml 03/12/21 21:29 Sodium Chloride 0.9% 10 Ml Flush Syringe IV PRN PRN LINE FLUSH Thiamine HCl 100 mg 03/13/21 10:00 03/22/21 10:23 Thiamine 100 Mg Tab PO 100 mg QDAY STEPHEN Administration Nutrition/Malnutrition Assess - Dietary Evaluation Nutrition/Malnutrition Findings: Nutrition Notes Start: 03/13/21 17:20 Freq: Status: Active Protocol: Document 03/21/21 14:19 GERALD (Rec: 03/21/21 14:47 GERALD [id number]) Nutrition Notes Initial or Follow up Brief Note Current Diet TF remains on hold. Height 5 ft 11 in Weight 61.2 kg [place] Body Weight (kg) 78.18 BMI 18.8 Weight change and time frame No body weight change reported . Weight Status Underweight Subjective/Other Information RD consult on TF resume and tolerance. TF remains on hold. Pt continues on Mechanical Ventilation. As per MD, discussion with family regarding Trach and PEG due to mental satus and poor prognosis. TF resumed 9:30 03/20 @ 20 ml/ hr. TF stopped 02:50 03/21, stomach distended and labored breathing, 250 ml residuals. Incident with necrotic fingers on 03/20. Percent of energy/protein needs met: TF remains on hold. Nutrition Intervention Follow-Up By: 03/23/21 Additional Comments F/U: TF restart/tolerance <JOSIE HESS - Last Filed: 03/24/21 12:03> Assessment and Plan Assessment and plan: I saw and evaluated the patient. Discussed with the nurse practitioner and agree with their findings and plan as documented in this note. Hospitalist Physical - Constitutional Vitals: Temp Pulse Resp BP Pulse Ox 97.4 F L 130 H 0 L 52/38 0 L 03/22/21 23:42 03/23/21 01:45 03/23/21 02:01 03/23/21 02:01 03/23/21 02:10 HEART Score - HEART Score Troponin: Troponin T < 0.010 ng/mL (0.00-0.029) 03/12/21 18:54 Results - Labs CBC & Chem 7: 03/22/21 04:00 03/22/21 23:20 Labs: Laboratory Last Values WBC 18.8 K/mm3 (4.5-11.0) H 03/22/21 04:00 RBC 3.97 M/mm3 (3.65-5.03) 03/22/21 04:00 Hgb 9.8 gm/dl (11.8-15.2) L 03/22/21 04:00 Hct 34.0 % (35.5-45.6) L 03/22/21 04:00 MCV 86 fl (84-94) 03/22/21 04:00 MCH 25 pg (28-32) L 03/22/21 04:00 MCHC 29 % (32-34) L 03/22/21 04:00 RDW 29.6 % (13.2-15.2) H 03/22/21 04:00 Plt Count 26 K/mm3 (140-440) L D 03/22/21 04:00 Add Manual Diff Complete 03/14/21 05:34 Total Counted 100 03/14/21 05:34 Seg Neutrophils % Plush Cutter 03/14/21 05:34 Seg Neuts % (Manual) 72.0 % (40.0-70.0) H 03/14/21 05:34 Band Neutrophils % 16.0 % 03/14/21 05:34 Lymphocytes % (Manual) 5.0 % (13.4-35.0) L 03/14/21 05:34 Reactive Lymphs % (Man) 0 % 03/14/21 05:34 Monocytes % (Manual) 4.0 % (0.0-7.3) 03/14/21 05:34 Eosinophils % (Manual) 0 % (0.0-4.3) 03/14/21 05:34 Basophils % (Manual) 0 % (0.0-1.8) 03/14/21 05:34 Metamyelocytes % 1.0 % 03/14/21 05:34 Myelocytes % 2.0 % 03/14/21 05:34 Promyelocytes % 0 % 03/14/21 05:34 Blast Cells % 0 % 03/14/21 05:34 Nucleated RBC % 7.0 % (0.0-0.9) H 03/14/21 05:34 Seg Neutrophils # Man 12.2 K/mm3 (1.8-7.7) H 03/14/21 05:34 Band Neutrophils # 2.7 K/mm3 03/14/21 05:34 Lymphocytes # (Manual) 0.8 K/mm3 (1.2-5.4) L 03/14/21 05:34 Abs React Lymphs (Man) 0.0 K/mm3 03/14/21 05:34 Monocytes # (Manual) 0.7 K/mm3 (0.0-0.8) 03/14/21 05:34 Eosinophils # (Manual) 0.0 K/mm3 (0.0-0.4) 03/14/21 05:34 Basophils # (Manual) 0.0 K/mm3 (0.0-0.1) 03/14/21 05:34 Metamyelocytes # 0.2 K/mm3 03/14/21 05:34 Myelocytes # 0.3 K/mm3 03/14/21 05:34 Promyelocytes # 0.0 K/mm3 03/14/21 05:34 Blast Cells # 0.0 K/mm3 03/14/21 05:34 Pathologist Review 03/14/21 05:34 WBC Morphology Not Reportable 03/14/21 05:34 Hypersegmented Neuts Not Reportable 03/14/21 05:34 Hyposegmented Neuts Not Reportable 03/14/21 05:34 Hypogranular Neuts Not Reportable 03/14/21 05:34 Smudge Cells Not Reportable 03/14/21 05:34 Toxic Granulation 1+ 03/14/21 05:34 Toxic Vacuolation Not Reportable 03/14/21 05:34 Dohle Bodies Not Reportable 03/14/21 05:34 Pelger-Huet Anomaly Not Reportable 03/14/21 05:34 Saqib Rods Not Reportable 03/14/21 05:34 Platelet Estimate Consistent w auto 03/14/21 05:34 Clumped Platelets Plush Cutter 03/14/21 05:34 Plt Clumps, EDTA Not Reportable 03/14/21 05:34 Large Platelets Few 03/14/21 05:34 Giant Platelets Not Reportable 03/14/21 05:34 Platelet Satelliting Not Reportable 03/14/21 05:34 Plt Morphology Comment Not Reportable 03/14/21 05:34 RBC Morphology Not Reportable 03/14/21 05:34 Dimorphic RBCs Not Reportable 03/14/21 05:34 Polychromasia 1+ 03/14/21 05:34 Hypochromasia 2+ 03/14/21 05:34 Poikilocytosis Not Reportable 03/14/21 05:34 Anisocytosis 2+ 03/14/21 05:34 Microcytosis 1+ 03/14/21 05:34 Macrocytosis Not Reportable 03/14/21 05:34 Spherocytes Not Reportable 03/14/21 05:34 Pappenheimer Bodies Not Reportable 03/14/21 05:34 Sickle Cells Not Reportable 03/14/21 05:34 Target Cells 1+ 03/14/21 05:34 Tear Drop Cells Not Reportable 03/14/21 05:34 Ovalocytes Not Reportable 03/14/21 05:34 Helmet Cells Not Reportable 03/14/21 05:34 [place] Bodies Not Reportable 03/14/21 05:34 [place] Rings Not Reportable 03/14/21 05:34 [place] Cells 1+ 03/14/21 05:34 Bite Cells Not Reportable 03/14/21 05:34 Crenated Cell Not Reportable 03/14/21 05:34 Elliptocytes Not Reportable 03/14/21 05:34 Acanthocytes (Spur) Not Reportable 03/14/21 05:34 Rouleaux Not Reportable 03/14/21 05:34 Hemoglobin C Crystals Not Reportable 03/14/21 05:34 Schistocytes Not Reportable 03/14/21 05:34 Malaria parasites Not Reportable 03/14/21 05:34 Wolf Bodies Not Reportable 03/14/21 05:34 Hem Pathologist Commnt Sent to pathology 03/14/21 05:34 PT 23.6 Sec. (12.2-14.9) H 03/19/21 04:00 INR 1.91 (0.87-1.13) H 03/19/21 04:00 APTT 38.7 Sec. (24.2-36.6) H 03/12/21 18:54 D-Dimer > 67012 ng/mlDDU (0-234) H 03/21/21 Unknown ABG pH 7.093 pH Units (7.350-7.450) L* 03/23/21 01:40 POC ABG pCO2 38.3 mmHg (32.0-48.0) 03/18/21 04:14 ABG pCO2 71.1 mm Hg 03/23/21 01:40 POC ABG pO2 73.1 mmHg (83-108) L 03/18/21 04:14 ABG pO2 28.4 mm Hg (80.0-90.0) L* 03/23/21 01:40 POC ABG HCO3 31.6 03/18/21 04:14 ABG HCO3 21.2 mmol/L (20.0-26.0) 03/23/21 01:40 ABG O2 Saturation 26.3 % (95.0-99.0) L 03/23/21 01:40 ABG O2 Content 3.5 (0.0-44) 03/23/21 01:40 POC ABG Base Excess 8.4 03/18/21 04:14 ABG Base Excess -8.8 mmol/L (-2.0-3.0) L 03/23/21 01:40 ABG Hemoglobin 9.6 gm/dl (14.0-18.0) L 03/23/21 01:40 ABG Oxyhemoglobin 93.6 (94-98) L 03/18/21 04:14 ABG Carboxyhemoglobin 1.4 % (0.0-5.0) 03/23/21 01:40 ABG Methemoglobin 0.9 % (0.0-1.5) 03/23/21 01:40 ABG Sodium 140.2 mmol/L (136.0-145.0) 03/18/21 04:14 ABG Potassium 3.3 mmol/L (3.40-4.50) L 03/18/21 04:14 ABG Chloride 102.0 mmol/L (98-107) 03/18/21 04:14 ABG Glucose 193 mg/dL (65-95) H 03/18/21 04:14 Oxyhemoglobin 25.7 % (95.0-99.0) L 03/23/21 01:40 Carboxyhemoglobin 0.7 (0.5-1.5) 03/18/21 04:14 FiO2 100 % 03/23/21 01:40 FiO2 % 40.0 03/18/21 04:14 Sodium 145 mmol/L (137-145) 03/22/21 04:00 Potassium 5.1 mmol/L (3.6-5.0) H 03/22/21 04:00 Chloride 104.8 mmol/L (98-107) 03/22/21 04:00 Carbon Dioxide 18 mmol/L (22-30) L 03/22/21 04:00 Anion Gap 27 mmol/L 03/22/21 04:00 BUN 73 mg/dL (9-20) H 03/22/21 04:00 Creatinine 1.2 mg/dL (0.8-1.3) D 03/22/21 04:00 Estimated GFR > 60 ml/min 03/22/21 04:00 BUN/Creatinine Ratio 61 % 03/22/21 04:00 Glucose 150 mg/dL (75-100) H 03/22/21 23:20 POC Glucose 120 mg/dL (70-105) H 03/23/21 01:33 Calcium 9.2 mg/dL (8.4-10.2) 03/22/21 04:00 Phosphorus 3.50 mg/dL (2.5-4.5) 03/20/21 05:48 Magnesium 2.20 mg/dL (1.7-2.3) 03/20/21 05:48 Ferritin 443.8 ng/mL (30.0-300.0) H 03/21/21 Unknown Total Bilirubin 14.00 mg/dL (0.1-1.2) H 03/22/21 04:00 AST 146 units/L (5-40) H 03/22/21 04:00 ALT 132 units/L (7-56) H 03/22/21 04:00 Alkaline Phosphatase 108 units/L (35-129) 03/22/21 04:00 Ammonia 27.0 umol/L (25-60) 03/20/21 05:48 Lactate Dehydrogenase 693 units/L (91-180) H 03/21/21 Unknown Troponin T < 0.010 ng/mL (0.00-0.029) 03/12/21 18:54 C-Reactive Protein 5.00 mg/dL (0.00-1.30) H 03/21/21 Unknown NT-Pro-B Natriuret Pep 1838 pg/mL (0-900) H 03/12/21 18:54 Total Protein 5.2 g/dL (6.3-8.2) L 03/22/21 04:00 Albumin 1.8 g/dL (3.9-5) L 03/22/21 04:00 Albumin/Globulin Ratio 0.5 % 03/22/21 04:00 Procalcitonin 11.74 ng/mL (<0.15) 03/21/21 10:46 Arterial Blood Glucose 193 mg/dL (65-95) H 03/18/21 04:14 Arterial Blood Ionized Calcium 4.4 mg/dL (4.6-5.3) L 03/18/21 04:14 Urine Color Sabrina (Yellow) 03/21/21 10:20 Urine Turbidity Cloudy (Clear) 03/21/21 10:20 Urine pH 5.0 (5.0-7.0) 03/21/21 10:20 Ur Specific [place] 1.019 (1.003-1.030) 03/21/21 10:20 Urine Protein 30 mg/dl mg/dL (Negative) 03/21/21 10:20 Urine Glucose (UA) Neg mg/dL (Negative) 03/21/21 10:20 Urine Ketones Neg mg/dL (Negative) 03/21/21 10:20 Urine Blood Mod (Negative) 03/21/21 10:20 Urine Nitrite Neg (Negative) 03/21/21 10:20 Urine Bilirubin Sm (Negative) 03/21/21 10:20 Urine Ictotest Positive (Negative) 03/21/21 10:20 Urine Urobilinogen 2.0 mg/dL (<2.0) 03/21/21 10:20 Ur Leukocyte Esterase Neg (Negative) 03/21/21 10:20 Urine WBC (Auto) 24.0 /HPF (0.0-6.0) H 03/21/21 10:20 Urine RBC (Auto) 8.0 /HPF (0.0-6.0) 03/21/21 10:20 U Epithel Cells (Auto) 3.0 /HPF (0-13.0) 03/21/21 10:20 Hyaline Casts 1 /LPF 03/21/21 10:20 Granular Casts 9 /LPF 03/21/21 10:20 Urine Mucus Few /HPF 03/21/21 10:20 Fluid Type Paracentesis 03/21/21 13:30 Fluid Color Yellow 03/21/21 13:30 Fluid Appearance Hazy 03/21/21 13:30 Fluid WBC 15 /mm3 03/21/21 13:30 Fluid RBC 221 /mm3 03/21/21 13:30 Fluid Seg Neutrophils 50.0 % 03/21/21 13:30 Fluid Lymphocytes 35.0 % 03/21/21 13:30 Fluid Monocytes 15.0 % 03/21/21 13:30 Random Vancomycin 5.6 ug/mL (0-40.0) 03/16/21 06:30 Coronavirus (PCR) Positive (Negative) A 03/13/21 Unknown Hepatitis A IgM Ab Non-reactive (NonReactive) 03/14/21 05:34 Hep Bs Antigen Nonreactive (Negative) 03/14/21 05:34 Hep B Core IgM Ab Non-reactive (NonReactive) 03/14/21 05:34 Hepatitis C Antibody Reactive (NonReactive) A 03/14/21 05:34 Blood Type B POSITIVE 03/16/21 08:00 Antibody Screen Negative 03/16/21 08:00 Crossmatch See Detail 03/16/21 08:00 Microbiology: Microbiology 03/21/21 10:46 Peripheral/Venous Blood Culture - Preliminary NO GROWTH AFTER 72 HOURS 03/21/21 10:46 Peripheral/Venous Blood Culture - Preliminary NO GROWTH AFTER 72 HOURS 03/21/21 13:30 Ascities Fluid Body Fluid Culture - Preliminary 03/21/21 13:40 Tracheal Aspirate Sputum Culture - Final 03/21/21 10:20 Urine,Clean Catch Urine Culture - Final NO GROWTH AFTER 48 HOURS [place]/IV: Voiding Method Indwelling Catheter Nutrition/Malnutrition Assess - Dietary Evaluation Nutrition/Malnutrition Findings: Nutrition Notes Start: 03/13/21 17:20 Freq: Status: Discharge Protocol: Document 03/21/21 14:19 GERALD (Rec: 03/21/21 14:47 GERALD [id number]) Nutrition Notes Initial or Follow up Brief Note Current Diet TF remains on hold. Height 5 ft 11 in Weight 61.2 kg [place] Body Weight (kg) 78.18 BMI 18.8 Weight change and time frame No body weight change reported . Weight Status Underweight Subjective/Other Information RD consult on TF resume and tolerance. TF remains on hold. Pt continues on Mechanical Ventilation. As per MD, discussion with family regarding Trach and PEG due to mental satus and poor prognosis. TF resumed 9:30 03/20 @ 20 ml/ hr. TF stopped 02:50 03/21, stomach distended and labored breathing, 250 ml residuals. Incident with necrotic fingers on 03/20. Percent of energy/protein needs met: TF remains on hold. Nutrition Intervention Follow-Up By: 03/23/21 Additional Comments F/U: TF restart/tolerance
--- NOTE | 2021-03-22 22:46 | XRay Report ---
CHEST 1 VIEW 03/22/2021 10:16 PM INDICATION / CLINICAL INFORMATION: reintubation. COMPARISON: 03/21/21 FINDINGS: SUPPORT DEVICES: Endotracheal tube is present with the tip 3.5 cm above the brittney. Right PICC and es ophagogastric tube are unchanged. HEART / MEDIASTINUM: Stable. LUNGS / PLEURA: Bilateral pulmonary opacities and small right pleural effusion are unchanged. New sma ll right apical pneumothorax. ADDITIONAL FINDINGS: No significant additional findings. IMPRESSION: 1. Endotracheal tube in expected position. 2. Bilateral pulmonary opacities are stable. 3. New, small right apical pneumothorax. IMPORTANT FINDING: Right pneumothorax Time of Communication (WORKERS COMPENSATION MANAGER/CDT): 9:40 PM Licensed Practitioner Receiving Report: Nurse Rendon on the CCU Signer Name: Damion Mckinney MD Signed: 03/22/2021 10:41 PM Workstation Name: [id number]
[2021-03-22] MEDS: DEXTROSE 50% IN WATER (25GM) 50 ML SYRINGE IV PRN (23:24)
[2021-03-23] MEDS ORDERED: ATROPINE 0.1% (1 MG/10 ML) CARDIAC SYRINGE ONE (01:22)
[2021-03-23] MEDS ORDERED: SODIUM BICARB 8.4% 50 MEQ/50 ML SYRINGE IV ONE (01:33)
[2021-03-23] MEDS ORDERED: ALBUMIN HUMAN 25% (25 GM/100 ML) INJ IV ONE (01:38)
[2021-03-23 01:53] LABS: ABG Base Excess -8.8 mmol/L (-2.0-3.0); ABG HCO3 21.2 mmol/L (20.0-26.0); ABG Methemoglobin 0.9 % (0.0-1.5); ABG Oxygen Saturation 26.3 % (95.0-99.0); ABG PCO2 71.1 mm Hg
[2021-03-23 01:55] LABS: ABG PH 7.093 pH Units (7.350-7.450); ABG PO2 28.4 mm Hg (80.0-90.0)
[2021-03-23] MEDS ORDERED: VASOPRESSIN 20 UNIT in SODIUM CHLORIDE 0.9% 100 ML IV SCH (02:00)
[2021-03-23 02:22] VITALS: BP 52/38
--- NOTE | 2021-03-23 07:32 | Death Summary ---
Summary - Providers Date of service: 03/23/21 Consults: 03/12/21 20:02 Consult to Dietitian/Nutrition [CONS] Routine Physician Instructions: Reason For Exam: Reason for Consult: Evaluate nutritional intake 03/12/21 21:00 Consult to Physician [CONS] Routine Comment: Consulting Provider: DAISY VIEIRA Physician Instructions: Reason For Exam: ICU Management 03/12/21 21:29 Consult to Physician [CONS] Routine Comment: Consulting Provider: ANGE BISHOP Physician Instructions: Reason For Exam: ascities 03/12/21 21:45 Consult to Physician [CONS] Routine Comment: Consulting Provider: JT LAW Physician Instructions: Reason For Exam: COVID 03/13/21 07:28 PICC Line Insertion [Consult to PICC Line RN] [CONS] Urgent Reason For Exam: access Type Line:: PICC 03/14/21 14:04 Consult to Physician [CONS] Routine Comment: Consulting Provider: ARNALDO HE Physician Instructions: Reason For Exam: IVON, hyperkalemia 03/15/21 13:52 Consult to Physician [CONS] Routine Comment: spoke to Dr. metz/ pablo Consulting Provider: IMELDA METZ Physician Instructions: Reason For Exam: unresponsive 03/17/21 11:14 Consult to Dietitian/Nutrition [CONS] Routine Physician Instructions: Assess nutrtn needs, initiate, modify, manage TF Reason For Exam: Reason for Consult: Write/Manage Tube Feeding Reason for Consult: Write/Manage Tube Feeding 03/21/21 10:09 Consult to Physician [CONS] Routine Comment: Consulting Provider: CHELY OROPEZA Physician Instructions: Reason For Exam: Rt. radial and Ulnar artery stenosis Attending: JES JUAREZ - summary Date of admission: 03/12/21 21:03 Date of : 03/23/21 Reason for admission: Septic ShocK and Acute Hypoxic Respiratory Failure Disposition: This is a 65-year-old male with past medical history of ESLD/liver cirrhosis 2/2 Hep C and EtOH abuse, recurrent ascites, rectal bleeding and anemia admitted for Septic Shock and acute hypoxic respiratory failure 2/2 COVID pneumonia requiring intubation and ventilatory support. Hospital Course to Date: 03/13: Awaiting PCCM, GI, ID input. Ordered CTA chest to rule out PE. Fluids increased due to concern for intravascular depletion. 03/14: Worsening hepatic transaminits, hypoglycemia noted. D/w GI and CCM regarding worsening liver function, likely shock liver. Will attempt [employer] transfer for hepatology services, call placed. Worsening renal function, consult placed to nephrology. 03/15: This morning decision was made by nephrology to initiate hemodialysis. Femoral Vas-Cath placed. Patient remains on Levophed and vasopressin and bicarbonate drip. Despite bicarbonate drip patient was acidotic on ABG and given additional 2 A of bicarb. Added phenyl epi gtt for HD if needed. I updated the daughter today while obtaining consent. 03/16: Patient had CT head today per neurology, supratherapeutic INR of six and given vitamin K and FFP follow, thrombocytopenia noted, patient is off of vasopressors. Metabolic acidosis resolved therefore bicarb drip discontinued. Hemoglobin 5.5 given 2 units PRBC. Potassium and mag repleted. NG tube to low intermittent suction. FiO2 decreased. serial h/h 03/17: Patient remains off vasopressors, fentanyl drip started on low-dose, vent changes per CCM and potassium repleted aggressively. GI okay to start tube feeding. LFTs improving. 03/18: Decrease in tidal volume today per CCM, holding sedation as patient is not responding. PSV today. LFTS better, k and mag repleted, TF at goal. SSI to high dose scale. Severe thrombocytopenia and given platelets today. Updated his daughter today regarding status, PSV trial and plts. She inquired about CTH which showed no acute finding but showed chronic changes which were communicated. 03/19: RONALD overnight. On low dose sedation this am, patient open eyes spontaneously not following any commands. High gastric residual, abdomen still distended, IV reglan added. TF held per protocol. Mild improvement in thrombocytopenia, d/w CCM transfuse if plt less than 20. 03/20: Remains on the vent and on low dose fentanly. Plan for SAT /SBT today. Per CCM if patient mentation remains the same he will most like need a trach/PEG. Plan for possible famil meeting to discuss POC. Plt droped again this am, will continue to monitor for no s/s of any active bleeding, patient is stable. 03/21: Febrile, hypotensive with tachycardia this am, back on pressors. IVF bolus and will panculture patient. Also diagnostic paracentesis performed at the bedside to r/t SBP as a possible source, culture sent. ID is also following, IV abx per ID. Necrotic right 5th digit noted, RUE doppler with right radial and ulnar stenosis, Vascular Surgery consulted. Patient is also severely hypoglycemic this, BG as low as 10 treated per hypoglycemic protocol. TF on hold due to high residual, D10w gtt initiated, Q1hr BG check for now. 03/22: Off pressors this am. TF was resumed overnight, will keep TF at 35cc/hr for now given abdominal distention. Kayexalate for hyperkalemia. D/w CCM ppossible large volume paracentesis ascites is starting to affect respiratory status. On 03/23 around 0150- CODE BLUE was called resuscitative measures were initiated ccording to ACLS protocol. However all resuscitative measures proved futile. Patient was pronounced on March 23, 2021 at 0200 am Upon exam: Patient had no response to verbal commands or deep sternal rub. Pupils were fixed and dilated. Chest: No breath sounds Cardiovascular exam: No heart sounds and no peripheral pulses Abdomen: Distended Extremities: Cold and clammy Central nervous system: No reflexes Daughter who is next of kin was immediately notified. NOK to discuss bereavement arrange with the nursing staffs
--- NOTE | 2021-03-23 08:48 | Event Note ---
Date: 03/23/21 JULIETTE PARADA called on 65-year-old -[place] male who has been on admission for acute hypoxic respiratory failure, metabolic encephalopathy, and transaminitis and septic shock. Resuscitative measures were commenced according to ACLS protocol. However all resuscitative measures proved futile. Upon exam: Patient had no response to verbal commands or deep sternal rub. Pupils were fixed and dilated. Chest: No breath sounds Cardiovascular exam: No heart sounds and no peripheral pulses Abdomen: Distended Extremities: Cold and clammy Central nervous system: No reflexes Patient pronounced at 2: 00 AM on March 23, 2021. Daughter who is next of kin was immediately notified.
== END 2021-03-23 05:00 | DRG 870 ==
LOC: ED 14:45 → CC1 21:03
PROVIDERS: ADMIT Hospitalist; ATTEND Internal Medicine
PROC: 5A1955Z Respiratory Ventilation, Greater than 96 Consecutive Hours (ICD-10-PCS; principal; 2021-03-12)
PROC: 0BH17EZ Insertion of Endotracheal Airway into Trachea, Via Natural or Artificial Opening (ICD-10-PCS; 2021-03-12)
PROC: 5A09357 Assistance with Respiratory Ventilation, Less than 24 Consecutive Hours, Continuous Positive Airway Pressure (ICD-10-PCS; 2021-03-12)
PROC: XW033E5 Introduction of Remdesivir Anti-infective into Peripheral Vein, Percutaneous Approach, New Technology Group 5 (ICD-10-PCS; 2021-03-13)
PROC: 4A033R1 Measurement of Arterial Saturation, Peripheral, Percutaneous Approach (ICD-10-PCS; 2021-03-13)
PROC: 02HV33Z Insertion of Infusion Device into Superior Vena Cava, Percutaneous Approach (ICD-10-PCS; 2021-03-13)
PROC: B548ZZA Ultrasonography of Superior Vena Cava, Guidance (ICD-10-PCS; 2021-03-13)
PROC: 06HM33Z Insertion of Infusion Device into Right Femoral Vein, Percutaneous Approach (ICD-10-PCS; 2021-03-15)
PROC: B54BZZA Ultrasonography of Right Lower Extremity Veins, Guidance (ICD-10-PCS; 2021-03-15)
PROC: 5A1D70Z Performance of Urinary Filtration, Intermittent, Less than 6 Hours Per Day (ICD-10-PCS; 2021-03-15)
PROC: 30233N1 Transfusion of Nonautologous Red Blood Cells into Peripheral Vein, Percutaneous Approach (ICD-10-PCS; 2021-03-16)
PROC: 0W9G3ZZ Drainage of Peritoneal Cavity, Percutaneous Approach (ICD-10-PCS; 2021-03-21)
DX: A41.89 Other specified sepsis (principal); J96.01 Acute respiratory failure with hypoxia; U07.1 COVID-19; R65.21 Severe sepsis with septic shock; N17.0 Acute kidney failure with tubular necrosis; G93.41 Metabolic encephalopathy; K72.00 Acute and subacute hepatic failure without coma; J12.82 Pneumonia due to coronavirus disease 2019; J90 Pleural effusion, not elsewhere classified; D62 Acute posthemorrhagic anemia; E87.1 Hypo-osmolality and hyponatremia; E72.20 Disorder of urea cycle metabolism, unspecified; K70.31 Alcoholic cirrhosis of liver with ascites; E16.2 Hypoglycemia, unspecified; D50.9 Iron deficiency anemia, unspecified; F17.210 Nicotine dependence, cigarettes, uncomplicated; E87.6 Hypokalemia; E87.5 Hyperkalemia; B18.2 Chronic viral hepatitis C; D69.6 Thrombocytopenia, unspecified
CPT/HCPCS: 36415; 36600; 70450; 71045; 71275; 74018; 74022; 76705; 80048; 80053; 80074; 80202; 81001; 82140; 82728; 82803; 82805; 82947; 82962; 83615; 83735; 83880; 84100; 84132; 84145; 84484; 85007; 85014; 85018; 85025; 85027; 85379; 85610; 85730; 86140; 86850; 86900; 86901; 86920; 87040; 87070; 87086; 87116; 87205; 89051; 93005; 94002; 94003; 94640; 94644; G0378; J2354; J3480; J3490; J7070; J7121; Q0162; Q9967; J0456; J0461; J0696; J0885; J1100; J1815; J2250; J2704; J2765; J3010; J3370; J3430; J3475; J7030; J7040; J7042; J7050; J7120; P9016; P9017; P9047; U0003